=== PATIENT | male | born 1945 | race Caucasian/White ===

== ENCOUNTER 2018-02-05 19:42 | Inpatient (IN) | payer OTHER, MEDICARE ==
[2018-02-05] MEDS ORDERED: SODIUM CHLORIDE 0.9% 1,000 ML IV STA (19:53)
[2018-02-05 20:03] LABS: Glucose,Whole Blood 242 mg/dL (75-99)
[2018-02-05 20:14] LABS: Basophils # (A) 0.1 k/uL (0-0.2); Basophils % (A) 1 %; Eosinophils # (A) 0.2 k/uL (0-0.7); Eosinophils % (A) 3 %; HCT 40.8 % (39.0-53.0); HGB 13.9 gm/dL (13.0-17.5); Lymphocytes # (A) 1.6 k/uL (1.0-4.8); Lymphocytes % (A) 29 %; MCH 31.8 pg (25.0-35.0); MCHC 34.1 g/dL (31.0-37.0); MCV 93.3 fL (80.0-100.0); Mean Platelet Volume 7.2; Monocytes # (A) 0.4 k/uL (0-1.0); Monocytes % (A) 8 %; Neutrophils % (A) 56 %; Platelet Count 187 k/uL (150-450); RBC 4.37 m/uL (4.30-5.90); RDW 13.1 % (11.5-15.5); WBC 5.4 k/uL (3.8-10.6)
[2018-02-05 20:23] LABS: INR 1.1 (<1.2); Prothrombin Time 10.3 sec (9.0-12.0)
--- NOTE | 2018-02-05 20:29 | CT ---
EXAMINATION TYPE: CT brain wo con for TPA DATE OF EXAM: 02/05/2018 COMPARISON: 05/13/2010 HISTORY: Aphasia. Neuro deficits. CT DLP: 926.8 mGycm Automated exposure control for dose reduction was used. TECHNIQUE: CT scan of the head is performed without contrast. FINDINGS: There is no acute intracranial hemorrhage or midline shift identified. There is diffuse v entricular and sulcal prominence consistent with diffuse age-related cerebral atrophy. Punctate thala lela lacunar injury and vallejo radiata lacunar injuries are near CSF attenuated and chronic although n ot present on the prior exam of 2009. There is low-attenuation in the periventricular white matter co nsistent with chronic small vessel ischemic change. The globes are intact. Mild mucosal thickening o f the ethmoid and visualized portions of the maxillary sinuses are seen. Frontal sinuses are aplastic . Mastoid air cells are well aerated. IMPRESSION: No acute intracranial process. Old lacunar injuries of the left vallejo radiata and thala mus.
[2018-02-05 20:34] LABS: Albumin 4.5 g/dL (3.5-5.0); Calcium 9.7 mg/dL (8.4-10.2); Potassium 4.5 mmol/L (3.5-5.1); Total Bilirubin 0.5 mg/dL (0.2-1.3); Total Protein 7.4 g/dL (6.3-8.2)
[2018-02-05 20:35] LABS: Creatine Kinase 55 U/L (55-170)
[2018-02-05 20:46] LABS: Creatine Kinase MB 0.8 ng/mL (0.0-2.4); Troponin I <0.012 ng/mL (0.000-0.034)
--- NOTE | 2018-02-05 20:55 | CT ---
EXAMINATION TYPE: CT angio head neck DATE OF EXAM: 02/05/2018 HISTORY: Aphasia. Neuro deficits. COMPARISON: NONE CT DLP: 324.6 mGycm. Automated Exposure Control for Dose Reduction was Utilized. TECHNIQUE: CTA scan of the neck is performed with IV Contrast, patient injected with 65ml mL of Isov ue 370, axial images are obtained, coronal and sagittal reformatted images are reviewed. Three-D daryl nstructed images are created on an independent workstation and reviewed. FINDINGS: CAROTID/VASCULAR STRUCTURES: The right vertebral artery is extremely diminutive and appears to be foc ally occluded at the level of C1 and within the foramen magnum with reconstitution. Left vertebral ar toni is unremarkable. There is moderate atherosclerosis of the extracranial and intracranial portions of the internal carotid arteries most pronounced within the cavernous and supraclinoid portions of t he internal carotid arteries and carotid bulbs. The right posterior communicating artery may be conge nitally absent or extremely diminutive and is not definitively seen. Remainder of the galena of Willi s is unremarkable with no focal occlusion. No aneurysmal outpouching is identified. Extensive calcific and noncalcific atheromatous plaquing are seen of the aortic arch although no foca l occlusion is seen along the ostia of the great vessels. At the bilateral carotid bulbs there is juan roximately 50% stenosis on the left and less than 50% stenosis on the right with approximately 60% st enosis in a short segment spanning over approximately 1 cm of the tortuous internal carotid artery ju st after the bifurcation. OTHER: Mild centrilobular emphysematous changes are seen at the lung apices. Moderate multilevel dege nerative changes of the spine are noted. Visualized portions of the brain are discussed on the CT bra in dictation of the same date. Airway is maintained and thyroid gland is unremarkable. No cervical ad enopathy is seen. IMPRESSION: 1. 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 This could be from diminutive thready flow or retrograde fl ow from the basilar artery. The cervical portion of the right vertebral artery is extremely diminutiv e. 2. Right posterior to indicating artery is not definitively seen and could be congenitally hypoplasti c or absent. Otherwise the galena of Gray is intact with no intracranial vascular stenosis. 3. Multifocal atherosclerosis with stenosis of approximately 50% in a short segment of the left carot id bulb and 60% in a short segment of the takeoff of the right internal carotid artery as well as mod erate calcific atheromatous plaquing of the cavernous and supraclinoid portions of the internal carot id arteries.
--- NOTE | 2018-02-05 22:03 | ED ---
General Adult HPI - General Chief complaint: Neuro Symptoms/Deficit Stated complaint: Poss Stroke Time Seen by Provider: 02/05/18 19:52 Source: patient, family, RN notes reviewed, old records reviewed Mode of arrival: wheelchair Limitations: no limitations - History of Present Illness Initial comments: This is a 72-year-old male the ER for evaluation. Patient comes in for evaluation regarding neurological complaint. Unknown onset of symptoms. Patient has history of high blood pressure high cholesterol diabetes. No prior history of CVA or heart disease. Patient states the difficulty expressing his thoughts some weakness and some altered mental status as well as some forgetfulness. Per family symptoms are mildly improved at this time but he still does not sit not himself - Related Data Home Medications Medication Instructions Recorded Confirmed metFORMIN HCL [Glucophage] 1,000 mg PO QAM 03/10/14 02/05/18 Atorvastatin Calcium [Lipitor] 80 mg PO HS 03/13/14 03/13/14 amLODIPine BESYLATE [Norvasc] 10 mg PO DAILY 03/13/14 02/05/18 metFORMIN HCL [Glucophage] 500 mg PO HS 02/05/18 02/05/18 Allergies Allergy/AdvReac Type Severity Reaction Status Date / Time No Known Allergies Allergy Verified 02/05/18 20:32 Review of Systems ROS Statement: Those systems with pertinent positive or pertinent negative responses have been documented in the HPI. ROS Other: All systems not noted in ROS Statement are negative. Past Medical History Past Medical History: Diabetes Mellitus, Hyperlipidemia, Hypertension History of Any Multi-Drug Resistant Organisms: None Reported Past Surgical History: Hernia Repair Additional Past Surgical History / Comment(s): Right knee surgery CUT OUT CARTILAGE, hernia repair Past Anesthesia/Blood Transfusion Reactions: No Reported Reaction Past Psychological History: No Psychological Hx Reported Smoking Status: Never smoker Past Alcohol Use History: Occasional Past Drug Use History: None Reported - Past Family History Father Additional Family Medical History / Comment(s): AT AGE 84-CANCER OF LARNYX (SMOKER), CARDIAC PROBLEMS Mother Family Medical History: Diabetes Mellitus Additional Family Medical History / Comment(s): AT AGE 83- HAD A PITUITARY TUMOR REMOVED HAD SON CRISIS General Exam - General Exam Comments Initial Comments: NIH of 2 Limitations: no limitations General appearance: alert, in no apparent distress Head exam: Present: atraumatic, normocephalic, normal inspection Eye exam: Present: normal appearance, PERRL, EOMI. Absent: scleral icterus, conjunctival injection, periorbital swelling ENT exam: Present: normal exam, mucous membranes moist Neck exam: Present: normal inspection. Absent: tenderness, meningismus, lymphadenopathy Respiratory exam: Present: normal lung sounds bilaterally. Absent: respiratory distress, wheezes, rales, rhonchi, stridor Cardiovascular Exam: Present: regular rate, normal rhythm, normal heart sounds. Absent: systolic murmur, diastolic murmur, rubs, gallop, clicks GI/Abdominal exam: Present: soft, normal bowel sounds. Absent: distended, tenderness, guarding, rebound, rigid Extremities exam: Present: normal inspection, full ROM, normal capillary refill. Absent: tenderness, pedal edema, joint swelling, calf tenderness Back exam: Present: normal inspection Neurological exam: Present: alert, oriented X3, CN II-XII intact Psychiatric exam: Present: normal affect, normal mood Skin exam: Present: warm, dry, intact, normal color. 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 Patient will be admitted for neurological evaluation - Lab Data Result diagrams: 02/05/18 19:54 02/05/18 19:54 Lab Results 02/05/18 02/05/18 02/05/18 Range/Units 19:54 19:54 19:54 WBC 5.4 (3.8-10.6) k/uL RBC 4.37 (4.30-5.90) m/uL Hgb 13.9 (13.0-17.5) gm/dL Hct 40.8 (39.0-53.0) % MCV 93.3 (80.0-100.0) fL MCH 31.8 (25.0-35.0) pg MCHC 34.1 (31.0-37.0) g/dL RDW 13.1 (11.5-15.5) % Plt Count 187 (150-450) k/uL Neutrophils % 56 % Lymphocytes % 29 % Monocytes % 8 % Eosinophils % 3 % Basophils % 1 % Neutrophils # 3.0 (1.3-7.7) k/uL Lymphocytes # 1.6 (1.0-4.8) k/uL Monocytes # 0.4 (0-1.0) k/uL Eosinophils # 0.2 (0-0.7) k/uL Basophils # 0.1 (0-0.2) k/uL PT (9.0-12.0) sec INR (<1.2) APTT (22.0-30.0) sec Sodium 138 (137-145) mmol/L Potassium 4.5 (3.5-5.1) mmol/L Chloride 102 (98-107) mmol/L Carbon Dioxide 23 (22-30) mmol/L Anion Gap 13 mmol/L BUN 26 H (9-20) mg/dL Creatinine 1.30 H (0.66-1.25) mg/dL Est GFR (CKD-EPI)AfAm 62 (>60 ml/min/1.73 sqM) Est GFR (CKD-EPI)NonAf 54 (>60 ml/min/1.73 sqM) Glucose 250 H (74-99) mg/dL POC Glucose (mg/dL) (75-99) mg/dL POC Glu Jigger Operator ID Calcium 9.7 (8.4-10.2) mg/dL Total Bilirubin 0.5 (0.2-1.3) mg/dL AST 19 (17-59) U/L ALT 27 (21-72) U/L Alkaline Phosphatase 57 (38-126) U/L Total Creatine Kinase 55 (55-170) U/L CK-MB (CK-2) 0.8 (0.0-2.4) ng/mL CK-MB (CK-2) Rel Index 1.5 Troponin I <0.012 (0.000-0.034) ng/mL Total Protein 7.4 (6.3-8.2) g/dL Albumin 4.5 (3.5-5.0) g/dL 02/05/18 02/05/18 Range/Units 19:54 20:02 WBC (3.8-10.6) k/uL RBC (4.30-5.90) m/uL Hgb (13.0-17.5) gm/dL Hct (39.0-53.0) % MCV (80.0-100.0) fL MCH (25.0-35.0) pg MCHC (31.0-37.0) g/dL RDW (11.5-15.5) % Plt Count (150-450) k/uL Neutrophils % % Lymphocytes % % Monocytes % % Eosinophils % % Basophils % % Neutrophils # (1.3-7.7) k/uL Lymphocytes # (1.0-4.8) k/uL Monocytes # (0-1.0) k/uL Eosinophils # (0-0.7) k/uL Basophils # (0-0.2) k/uL PT 10.3 (9.0-12.0) sec INR 1.1 (<1.2) APTT 22.0 (22.0-30.0) sec Sodium (137-145) mmol/L Potassium (3.5-5.1) mmol/L Chloride (98-107) mmol/L Carbon Dioxide (22-30) mmol/L Anion Gap mmol/L BUN (9-20) mg/dL Creatinine (0.66-1.25) mg/dL Est GFR (CKD-EPI)AfAm (>60 ml/min/1.73 sqM) Est GFR (CKD-EPI)NonAf (>60 ml/min/1.73 sqM) Glucose (74-99) mg/dL POC Glucose (mg/dL) 242 H (75-99) mg/dL POC Glu Jigger Operator ID Graciela Maddox Calcium (8.4-10.2) mg/dL Total Bilirubin (0.2-1.3) mg/dL AST (17-59) U/L ALT (21-72) U/L Alkaline Phosphatase (38-126) U/L Total Creatine Kinase (55-170) U/L CK-MB (CK-2) (0.0-2.4) ng/mL CK-MB (CK-2) Rel Index Troponin I (0.000-0.034) ng/mL Total Protein (6.3-8.2) g/dL Albumin (3.5-5.0) g/dL - Radiology Data Radiology results: report reviewed (CT brain CT head and neck negative for acute disease), image reviewed Disposition Clinical Impression: Cerebrovascular accident Disposition: ADMITTED IP TO THIS [facility] Condition: Fair Is patient prescribed a controlled substance at d/c from ED?: No Referrals: Orlando Parish DO [Primary Care Provider] - 1-2 days
[2018-02-05] MEDS ORDERED: ASPIRIN 325 MG TAB PO STA (22:11)
[2018-02-05 23:13] VITALS: BMI 28.5
[2018-02-05] MEDS: SODIUM CHLORIDE 0.9% 1,000 ML IV SCH (23:21)
[2018-02-06 05:58] LABS: Glucose,Whole Blood 138 mg/dL (75-99)
[2018-02-06 06:21] VITALS: TEMP 97.8
[2018-02-06] MEDS ORDERED: INSULIN ASPART 100 UNIT/ML 1 ML 10 ML VIAL SQ SCH (07:30)
[2018-02-06 09:32] LABS: Cholesterol 232 mg/dL (<200); HDL Cholesterol 45 mg/dL (40-60); LDL Cholesterol,Calculated 146 mg/dL (0-99); Triglycerides 203 mg/dL (<150)
--- NOTE | 2018-02-06 11:05 | ECHOF ---
Referral Reason:Thrombus MEASUREMENTS -------- HEIGHT: 180.3 cm WEIGHT: 95.3 kg BP: 128/70 RVIDd: 2.9 cm (< 3.3) IVSd: 1.3 cm (0.6 - 1.1) LVIDd: 4.6 cm (3.9 - 5.3) LVPWd: 1.3 cm (0.6 - 1.1) IVSs: 2.0 cm LVIDs: 3.2 cm LVPWs: 1.7 cm LAESV Index (A-L): 33.35 ml/m Ao Diam: 2.7 cm (2.0 - 3.7) AV Cusp: 1.1 cm (1.5 - 2.6) LA Diam: 4.6 cm (2.7 - 3.8) MV EXCURSION: 14.577 mm (> 18.000) MV EF SLOPE: 55 mm/s (70 - 150) EPSS: 0.6 cm MV E Vipul: 1.01 m/s MV DecT: 214 ms MV A Vipul: 1.07 m/s MV E/A Ratio: 0.94 AV maxP.73 mmHg AV meanP.28 mmHg AR PHT: 487 ms RAP: 5.00 mmHg RVSP: 30.76 mmHg FINDINGS -------- Sinus rhythm. This was a technically good study. The left ventricular size is normal. There is mild concentric left ventricular hypertrophy. Overa ll left ventricular systolic function is normal with, an EF between 55 - 60 %. The right ventricle is normal in size and function. LA is midly dilated 29-33ml/m2. The right atrium is normal in size. Aortic valve is trileaflet and is mildly thickened. There is mild aortic regurgitation. There is mild aortic stenosis present. Peak/mean gradient across the Aortic Valve is 19.73mmHg / 10.28mmHg. The mitral valve leaflets are mildly thickened. Mild mitral regurgitation is present. Mild tricuspid regurgitation present. The right ventricular systolic pressure, as measured by Doppl er, is 30.76mmHg. Pulmonic valve appears structurally normal. The aortic root size is normal. Normal inferior vena cava with normal inspiratory collapse consistent with estimated right atrial pre ssure of 5 mmHg. The pericardium is normal. CONCLUSIONS -------- 1. Sinus rhythm. 2. This was a technically good study. 3. The left ventricular size is normal. 4. There is mild concentric left ventricular hypertrophy. 5. Overall left ventricular systolic function is normal with, an EF between 55 - 60 %. 6. The right ventricle is normal in size and function. 7. LA is midly dilated 29-33ml/m2. 8. The right atrium is normal in size. 9. Aortic valve is trileaflet and is mildly thickened. 10. There is mild aortic regurgitation. 11. There is mild aortic stenosis present. 12. Peak/mean gradient across the Aortic Valve is 19.73mmHg / 10.28mmHg. 13. The mitral valve leaflets are mildly thickened. 14. Mild mitral regurgitation is present. 15. Mild tricuspid regurgitation present. 16. The right ventricular systolic pressure, as measured by Doppler, is 30.76mmHg. 17. Pulmonic valve appears structurally normal. 18. The aortic root size is normal. 19. Normal inferior vena cava with normal inspiratory collapse consistent with estimated right atrial pressure of 5 mmHg. 20. The pericardium is normal. CREPE MACHINE OPERATOR: Ina Patton RDCS
[2018-02-06 11:55] LABS: Glucose,Whole Blood 210 mg/dL (75-99)
[2018-02-06] MEDS: SODIUM CHLORIDE 0.9% 1,000 ML IV SCH (12:11)
[2018-02-06 12:46] VITALS: RESP 16
[2018-02-06 12:47] VITALS: BP 161/83; PULSE 59
--- NOTE | 2018-02-06 14:20 | P.HPIM ---
History of Present Illness 72-year-old pleasant gentleman came in with nonspecific symptoms of brief episode of confusion, feeling high like he uses some street drugs. Denied any focal weakness but does have tingling and numbness in bilateral upper and lower extremities. Patient was admitted for TIA or stroke evaluation echocardiogram essentially within normal limits carotid Doppler showed some atherosclerotic plaques not significant enough for any surgical intervention. Patient does have elevated LDL, patient is noncompliant with his statin. Patient doesn't use any antiplatelet therapy. CAT scan of the head did show some old lacunar strokes. No acute abnormality. Patient's diet is not consistent with TIA or a stroke. Patient is alert oriented 3. Patient doesn't have any signs or symptoms of sepsis at this point of time left lites are within normal limits. Patient doesn't smoke does drink alcohol occasionally. Counseling regarding complex with medications was provided will be given prescription for atorvastatin will be started and aspirin will be discharged to follow up with his primary care physician and neurology as an outpatient. Review of Systems REVIEW OF SYSTEMS: CONSTITUTIONAL: No fever, no malaise, no fatigue. HEENT: No recent visual problems or hearing problems. Denied any sore throat. CARDIOVASCULAR: No chest pain, orthopnea, PND, no palpitations, no syncope. PULMONARY: No shortness of breath, no cough, no hemoptysis. GASTROINTESTINAL: No diarrhea, no nausea, no vomiting, no abdominal pain. Normoactive bowel sounds. NEUROLOGICAL: No headaches, no weakness, HEMATOLOGICAL: Denies any bleeding or petechiae. GENITOURINARY: Denies any burning micturition, frequency, or urgency. MUSCULOSKELETAL/RHEUMATOLOGICAL: Denies any joint pain, swelling, or any muscle pain. ENDOCRINE: Denies any polyuria or polydipsia. The rest of the 14-point review of systems is negative. Past Medical History Past Medical History: Diabetes Mellitus, Hyperlipidemia, Hypertension History of Any Multi-Drug Resistant Organisms: None Reported Past Surgical History: Hernia Repair Additional Past Surgical History / Comment(s): Right knee surgery CUT OUT CARTILAGE, hernia repair Past Anesthesia/Blood Transfusion Reactions: No Reported Reaction Past Psychological History: No Psychological Hx Reported Smoking Status: Never smoker Past Alcohol Use History: Occasional Additional Past Alcohol Use History / Comment(s): QUIT 20 YEARS AGO WAS DRINKING 1 CASE OF BEER PER DAY. Patient states he is now drinking an occasional basis only. He states he has never been a smoker. 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 He is currently living at home with his . He did recently travel to [place] 1 month ago. They have chickens dogs and cats at home. He was in the [employer] for 6 years in 1965 and was stationed in [place]. Past Drug Use History: None Reported - Past Family History Father Additional Family Medical History / Comment(s): AT AGE 84-CANCER OF LARNYX (SMOKER), CARDIAC PROBLEMS Mother Family Medical History: Diabetes Mellitus Additional Family Medical History / Comment(s): AT AGE 83- HAD A PITUITARY TUMOR REMOVED HAD SON CRISIS Medications and Allergies Home Medications Medication Instructions Recorded Confirmed Type metFORMIN HCL [Glucophage] 1,000 mg PO QAM 03/10/14 02/05/18 History amLODIPine BESYLATE [Norvasc] 10 mg PO DAILY 03/13/14 02/05/18 History metFORMIN HCL [Glucophage] 500 mg PO HS 02/05/18 02/05/18 History Aspirin 81 mg PO DAILY #30 chewable 02/06/18 Rx Atorvastatin [Lipitor] 80 mg PO HS #30 tab 02/06/18 Rx Allergies Allergy/AdvReac Type Severity Reaction Status Date / Time No Known Allergies Allergy Verified 02/05/18 20:32 Physical Exam Vitals: Vital Signs Temp Pulse Pulse Resp BP BP Pulse Ox 02/06/18 12:00 59 L 16 161/83 97 02/06/18 08:00 69 16 160/75 95 02/06/18 04:00 97.8 F 68 16 128/70 99 02/05/18 23:31 78 18 02/05/18 22:55 97.4 F L 82 18 153/74 97 02/05/18 22:48 98.1 F 78 16 154/72 99 02/05/18 21:55 84 18 154/74 98 02/05/18 21:25 87 18 158/80 97 02/05/18 20:55 94 18 157/77 94 L 02/05/18 20:40 95 18 179/89 94 L 02/05/18 20:25 96 18 178/103 98 02/05/18 20:10 99 18 183/100 98 02/05/18 19:46 98.3 F 100 18 181/94 97 Intake and Output 02/05/18 02/06/18 02/06/18 22:59 06:59 14:59 Intake Total 960 240 Balance 960 240 Intake: Oral 960 240 Other: Voiding Method Toilet Urinal # Voids 2 Weight 95.254 kg 94.03 kg PHYSICAL EXAMINATION: GENERAL: The patient is alert and oriented x3, not in any acute distress. Well developed, well nourished. HEENT: Pupils are round and equally reacting to light. EOMI. No scleral icterus. No conjunctival pallor. Normocephalic, atraumatic. No pharyngeal erythema. No thyromegaly. CARDIOVASCULAR: S1 and S2 present. No murmurs, rubs, or gallops. PULMONARY: Chest is clear to auscultation, no wheezing or crackles. ABDOMEN: Soft, nontender, nondistended, normoactive bowel sounds. No palpable organomegaly. MUSCULOSKELETAL: No joint swelling or deformity. EXTREMITIES: No cyanosis, clubbing, or pedal edema. NEUROLOGICAL: Gross neurological examination did not reveal any focal deficits. SKIN: No rashes. Results CBC & Chem 7: 02/05/18 19:54 02/05/18 19:54 Labs: Abnormal Lab Results - Last 24 Hours (Table) 02/05/18 02/05/18 02/06/18 Range/Units 19:54 20:02 05:53 BUN 26 H (9-20) mg/dL Creatinine 1.30 H (0.66-1.25) mg/dL Glucose 250 H (74-99) mg/dL POC Glucose (mg/dL) 242 H 138 H (75-99) mg/dL Triglycerides (<150) mg/dL Cholesterol (<200) mg/dL LDL Cholesterol, Calc (0-99) mg/dL 02/06/18 02/06/18 Range/Units 08:36 11:53 BUN (9-20) mg/dL Creatinine (0.66-1.25) mg/dL Glucose (74-99) mg/dL POC Glucose (mg/dL) 210 H (75-99) mg/dL Triglycerides 203 H (<150) mg/dL Cholesterol 232 H (<200) mg/dL LDL Cholesterol, Calc 146 H (0-99) mg/dL Thrombosis Risk Factor Assmnt - Choose All That Apply Each Risk Factor Represents 2 Points: Age 61-74 years Thrombosis Risk Factor Assessment Total Risk Factor Score: 2 Thrombosis Risk Factor Assessment Level: Low Risk Assessment and Plan Plan: -Ruled out TIA/stroke: Patient does have some old small vessel ischemic changes on the CAT scan. -Hyperlipidemia -Hypertension -Diabetes mellitus. Counseling regarding compliance was provided. Patient will be discharged today. Workup for TIA and stroke as mentioned above echocardiogram essentially within normal limits.
--- NOTE | 2018-02-06 14:21 | P.DS ---
Providers Date of admission: 02/05/18 22:12 Attending physician: Angelia Harry Consults: 02/05/18 22:12 Consult Physician Routine Consulting Provider: Vinicius Vallejo Consult Reason/Comments: cva Do you want consulting provider notified?: Yes Primary care physician: Orlando Parish [facility] Course: Please refer to my HPI Patient Condition at Discharge: Stable Plan - Discharge Summary Discharge Rx Participant: No New Discharge Prescriptions: New Aspirin 81 mg PO DAILY #30 chewable Atorvastatin [Lipitor] 80 mg PO HS #30 tab Continue metFORMIN HCL [Glucophage] 1,000 mg PO QAM amLODIPine BESYLATE [Norvasc] 10 mg PO DAILY metFORMIN HCL [Glucophage] 500 mg PO HS Discontinued Atorvastatin Calcium [Lipitor] 80 mg PO HS Discharge Medication List metFORMIN HCL [Glucophage] 1,000 mg PO QAM 03/10/14 [History] amLODIPine BESYLATE [Norvasc] 10 mg PO DAILY 03/13/14 [History] metFORMIN HCL [Glucophage] 500 mg PO HS 02/05/18 [History] Aspirin 81 mg PO DAILY #30 chewable 02/06/18 [Rx] Atorvastatin [Lipitor] 80 mg PO HS #30 tab 02/06/18 [Rx] Follow up Appointment(s)/Referral(s): Priya Tate MD [STAFF PHYSICIAN] - 03/14/18 11:00 am Orlando Parish DO [Primary Care Provider] - 3 Days ([facility] [phone] Offices are going to call with an appointment date and time. ) Patient Instructions/Handouts: Cholesterol and Your Health (GEN), Stroke (DC) Discharge Disposition: HOME SELF-CARE
[2018-02-06] MEDS ORDERED: ASPIRIN 325 MG TAB PO SCH (22:12)
== END 2018-02-06 13:25 | disposition home or self-care (01) | DRG 948 ==
LOC: EC 19:42 → 6SEL 22:12
PROVIDERS: ADMIT Hospitalist; ATTEND Hospitalist
DX: R41.82 Altered mental status, unspecified (principal); R53.1 Weakness; R20.0 Anesthesia of skin; R20.2 Paresthesia of skin; E11.22 Type 2 diabetes mellitus with diabetic chronic kidney disease; E78.00 Pure hypercholesterolemia, unspecified; E78.5 Hyperlipidemia, unspecified; I12.9 Hypertensive chronic kidney disease with stage 1 through stage 4 chronic kidney disease, or unspecified chronic kidney disease; N18.3 Chronic kidney disease, stage 3 (moderate); Z79.82 Long term (current) use of aspirin; Z79.84 Long term (current) use of oral hypoglycemic drugs; Z79.899 Other long term (current) drug therapy; Z86.73 Personal history of transient ischemic attack (TIA), and cerebral infarction without residual deficits; Z91.19 Patient's noncompliance with other medical treatment and regimen; Z83.3 Family history of diabetes mellitus; Z80.8 Family history of malignant neoplasm of other organs or systems; Z82.49 Family history of ischemic heart disease and other diseases of the circulatory system
CPT/HCPCS: 36415; 70450; 70496; 70498; 80053; 80061; 82550; 82553; 84484; 85025; 85610; 85730; 93005; 93306; 96360; 96361; 99285

== ENCOUNTER 2018-05-20 14:09 | Emergency (ER) | payer MEDICARE, OTHER ==
[2018-05-20 14:18] VITALS: RESP 18; TEMP 98
[2018-05-20] MEDS ORDERED: DIPH,PERTUS(ACELL)TETVAC-LF 0.5 ML VIAL IM ONE (14:52)
[2018-05-20] MEDS ORDERED: LIDOCAINE 1% INJ 10MG/ML (20 ML MDV) SQ STA (14:54)
[2018-05-20 16:49] VITALS: PULSE 79
--- NOTE | 2018-05-20 16:50 | ED ---
General Adult HPI - General Source: patient, RN notes reviewed, old records reviewed Mode of arrival: ambulatory Limitations: no limitations <Martin Leroy - Last Filed: 05/20/18 17:02> <Elias Person - Last Filed: 05/20/18 17:12> - General Chief complaint: Wound/Laceration Stated complaint: lac on rt hand - History of Present Illness Initial comments: 72-year-old male patient passed no history of diabetes mellitus to ED with 2 cm laceration to right hand located in web between the thumb and first digit. Patient states that he sustained this laceration when he was using a piece of steel for work that had a sharp edge. Patient states he did not notice any foreign bodies in his laceration, cleaned out with soap and water shortly after cut. Patient does not know his last tetanus was. Patient denies any other injury, complaint. Systemic: Pt denies fatigue, myalgia, fever/chills, rash. Pt denies weakness, night sweats, weight loss. Neuro: Pt denies headache, visual disturbances, syncope or pre-syncope. HEENT: Pt denies ocular discharge or irritation, otalgia, rhinorrhea, pharyngitis or notable lymphadenopathy. Cardiopulmonary: Pt denies chest pain, SOB, heart palpitations, dyspnea on exertion. Abdominal/GI: Pt denies abdominal pain, n/v/d. : Pt denies dysuria, burning w/ urination, frequency/urgency. Denies new onset urinary or bowel incontinence. MSK: Pt denies myalgia, loss of strength or function in extremities. (Martin Leroy) - Related Data Home Medications Medication Instructions Recorded Confirmed metFORMIN HCL [Glucophage] 1,000 mg PO QAM 03/10/14 02/05/18 amLODIPine BESYLATE [Norvasc] 10 mg PO DAILY 03/13/14 02/05/18 metFORMIN HCL [Glucophage] 500 mg PO HS 02/05/18 02/05/18 Previous Rx's Medication Instructions Recorded Aspirin 81 mg PO DAILY #30 chewable 02/06/18 Atorvastatin [Lipitor] 80 mg PO HS #30 tab 02/06/18 Cephalexin [Keflex] 500 mg PO Q12HR 10 Days #20 cap 05/20/18 Allergies Allergy/AdvReac Type Severity Reaction Status Date / Time No Known Allergies Allergy Verified 05/20/18 14:18 Review of Systems ROS Other: All systems not noted in ROS Statement are negative. <Martin Leroy - Last Filed: 05/20/18 17:02> ROS Other: All systems not noted in ROS Statement are negative. <Elias Person - Last Filed: 05/20/18 17:12> ROS Statement: Those systems with pertinent positive or pertinent negative responses have been documented in the HPI. Past Medical History Past Medical History: Diabetes Mellitus, Hyperlipidemia, Hypertension History of Any Multi-Drug Resistant Organisms: None Reported Past Surgical History: Hernia Repair Additional Past Surgical History / Comment(s): Right knee surgery CUT OUT CARTILAGE, hernia repair Past Anesthesia/Blood Transfusion Reactions: No Reported Reaction Past Psychological History: No Psychological Hx Reported Smoking Status: Never smoker Past Alcohol Use History: Occasional Past Drug Use History: None Reported - Past Family History Father Additional Family Medical History / Comment(s): AT AGE 84-CANCER OF LARNYX (SMOKER), CARDIAC PROBLEMS Mother Family Medical History: Diabetes Mellitus Additional Family Medical History / Comment(s): AT AGE 83- HAD A PITUITARY TUMOR REMOVED HAD SON CRISIS <Martin Leroy - Last Filed: 05/20/18 17:02> General Exam Limitations: no limitations <Martin Leroy - Last Filed: 05/20/18 17:02> <Elias Person - Last Filed: 05/20/18 17:12> - General Exam Comments Initial Comments: Constitutional: NAD, AOX3, Pt has pleasant affect. HEENT: NC/AT, trachea midline, neck supple, no lymphadenopathy. Posterior pharynx non erythematous, without exudates. External ears appear normal, without discharge. Mucous membranes moist. Eyes PERRLA, EOM intact. There is no scleral icterus. No pallor noted. Cardiopulmonary: RRR, no murmurs, rubs or gallops, no JVD noted. Lungs CTAB in anterior and posterior martins. No peripheral edema. Abdominal exam: Abdomen soft and non-distended. Abdomen non-tender to palpation in all 4 quadrants. Bowel sounds active in LLQ. No hepatosplenomegaly. Neuro: CN II-XII grossly intact. MSK: Approximately 2 cm laceration R hand in web of finger between thumb and first digit. Patient neurovascularly intact. Radial pulse +2 bilaterally. Capillary refill less than 2 seconds in all nail beds bilaterally. Patient has full active range of motion of the right hand. No other pathologic findings. (Martin Leroy) Course <Martin Leroy - Last Filed: 05/20/18 17:02> <Elias Person - Last Filed: 05/20/18 17:12> Vital Signs 05/20/18 05/20/18 05/20/18 14:15 16:48 16:52 Temperature 98 F Pulse Rate 92 79 Respiratory 18 18 Rate Blood Pressure 132/80 170/90 138/76 O2 Sat by Pulse 96 99 Oximetry - Reevaluation(s) Reevaluation #1: 05/20/18 17:12 PA supervision: I proceeded [id number] evaluation the patient and did assess the injury. He had a right hand webspace injury to his summoned Year. He did this when he was using a pipe a neighbor caught his hand. 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 (Elias Person) Procedures - Laceration Laceration #1 Consent Obtained: verbal consent Time Out Performed: Yes Indication: laceration Site: hand Description: linear Depth: simple, single layer Anesthetic Used: lidocaine 1% Anesthesia Technique: local infiltration Amount (mls): 3 Pre-repair: wound explored, irrigated extensively (500 CC normal saline ) Type of Sutures: other (ethylon) Size of Sutures: 5-0 Number of Sutures: 3 Technique: simple, interrupted Patient Tolerated Procedure: well <Martin Leroy - Last Filed: 05/20/18 17:02> Medical Decision Making <Martin Leroy - Last Filed: 05/20/18 17:02> <Elias Person - Last Filed: 05/20/18 17:12> - Medical Decision Making 72-year-old male presents with history of diabetes since laceration to right hand. Patient had no other complaints. Patient neurovascularly intact, full active range of motion right hand. Patient had tDap updated today. Laceration was explored, no foreign bodies found. The laceration was copiously irrigated with 500 mL. Laceration was closed primarily with 3, 50 sutures. Patient to be discharged with by mouth Keflex. Patient to follow up with primary care physician in one to 2 days. Patient to have sutures removed in 10 days by PCP. Patient to monitor for signs symptoms of infection including redness around the suture site, discharge, streaking, fevers or chills. Patient to return to ED if any of the symptoms, or any other new symptoms develop. Case discussed with Dr. Person. (Martin Leroy) Disposition Is patient prescribed a controlled substance at d/c from ED?: No Time of Disposition: 16:54 <Martin Leroy - Last Filed: 05/20/18 17:02> <Elias Person - Last Filed: 05/20/18 17:12> Clinical Impression: Laceration Disposition: HOME SELF-CARE Condition: Good Instructions: Laceration (ED) Additional Instructions: Patient to adhere to previously discussed treatment plan and will take medication(s) as directed. Patient to follow up with PCP in 1-2 days. Patient to return to ED if symptoms do not improve. Prescriptions: Cephalexin [Keflex] 500 mg PO Q12HR 10 Days #20 cap Referrals: [facility],Clinic [Primary Care Provider] - 1-2 days
[2018-05-20 16:53] VITALS: BP 138/76
== END 2018-05-20 17:02 | disposition home or self-care (01) ==
LOC: EC 14:09
DX: S61.411A Laceration without foreign body of right hand, initial encounter (principal); E11.9 Type 2 diabetes mellitus without complications; I10 Essential (primary) hypertension; Z79.84 Long term (current) use of oral hypoglycemic drugs; Z79.899 Other long term (current) drug therapy; Z23 Encounter for immunization; W26.8XXA Contact with other sharp object(s), not elsewhere classified, initial encounter; Y93.89 Activity, other specified
CPT/HCPCS: 90715; 99283; 12001; 90471; J2001

== ENCOUNTER 2018-11-15 14:35 | Emergency (ER) | payer OTHER ==
[2018-11-15] MEDS ORDERED: DIPH,PERTUS(ACELL)TETVAC-LF 0.5 ML VIAL IM ONE (16:08)
--- NOTE | 2018-11-15 16:26 | ED ---
General Adult HPI - General Source: patient Mode of arrival: wheelchair <Edison Rivas - Last Filed: 11/15/18 16:02> <Elias Person - Last Filed: 11/15/18 16:28> - General Chief complaint: Extremity Injury, Lower Stated complaint: rt foot/ankle injury Time Seen by Provider: 11/15/18 15:22 - History of Present Illness Initial comments: Patient 73-year-old male presents to emergency department with pain to the right foot. Patient states about a week ago he was carrying a piece of metal when he accidentally scraped his left lower leg down to the calcaneus. Patient states he developed swelling and redness in the area without limited range of motion. Patient states that he continued doing his daily activities and putting Neospori n on his foot. Patient states over the course of the last 3 days the swelling has decreased and the pain is nonexistent. Patient states that the abrasion is healing well. Patient also states that the ecchymosis is disappearing. She states the pain is 0 at rest and is only exacerbated with plantar flexion. Patient denies taking any medication for pain. Patient denies any numbness or tingling. (Edison Rivas) - Related Data Home Medications Medication Instructions Recorded Confirmed metFORMIN HCL [Glucophage] 1,000 mg PO QAM 03/10/14 02/05/18 amLODIPine BESYLATE [Norvasc] 10 mg PO DAILY 03/13/14 02/05/18 metFORMIN HCL [Glucophage] 500 mg PO HS 02/05/18 02/05/18 Previous Rx's Medication Instructions Recorded Aspirin 81 mg PO DAILY #30 chewable 02/06/18 Atorvastatin [Lipitor] 80 mg PO HS #30 tab 02/06/18 Cephalexin [Keflex] 500 mg PO Q12HR 10 Days #20 cap 05/20/18 Ibuprofen [Motrin] 600 mg PO Q8HR PRN #30 tab 11/15/18 Allergies Allergy/AdvReac Type Severity Reaction Status Date / Time No Known Allergies Allergy Verified 11/15/18 14:50 Review of Systems ROS Other: All systems not noted in ROS Statement are negative. <Edison Rivas - Last Filed: 11/15/18 16:02> ROS Other: All systems not noted in ROS Statement are negative. <Elias Person - Last Filed: 11/15/18 16:28> ROS Statement: Those systems with pertinent positive or pertinent negative responses have been documented in the HPI. Past Medical History Past Medical History: Diabetes Mellitus, Hyperlipidemia, Hypertension History of Any Multi-Drug Resistant Organisms: None Reported Past Surgical History: Hernia Repair Additional Past Surgical History / Comment(s): Right knee surgery CUT OUT CARTILAGE, hernia repair Past Anesthesia/Blood Transfusion Reactions: No Reported Reaction Past Psychological History: No Psychological Hx Reported Smoking Status: Never smoker Past Alcohol Use History: Occasional Past Drug Use History: None Reported - Past Family History Father Additional Family Medical History / Comment(s): AT AGE 84-CANCER OF LARNYX (SMOKER), CARDIAC PROBLEMS Mother Family Medical History: Diabetes Mellitus Additional Family Medical History / Comment(s): AT AGE 83- HAD A PITUITARY TUMOR REMOVED HAD SON CRISIS <Edison Rivas - Last Filed: 11/15/18 16:02> General Exam Limitations: no limitations General appearance: alert, in no apparent distress Head exam: Present: atraumatic, normocephalic, normal inspection Eye exam: Present: normal appearance, PERRL, EOMI. Absent: scleral icterus, conjunctival injection Pupils: Present: normal accommodation ENT exam: Present: normal exam Neck exam: Present: normal inspection Respiratory exam: Present: normal lung sounds bilaterally Cardiovascular Exam: Present: regular rate, normal rhythm, normal heart sounds GI/Abdominal exam: Present: soft Right Hip exam: Present: normal inspection, full ROM Upper Leg exam: Present: normal inspection, full ROM Knee exam: Present: normal inspection, full ROM Ankle exam: Present: full ROM, swelling (Mild), abrasion (2 locations along the medial aspect of ankle). Absent: tenderness, ecchymosis, erythema Foot/Toe exam: Present: normal inspection, full ROM. Absent: abrasion Neurovascular tendon exam: Present: no vascular compromise. Absent: motor deficit, sensory deficit, tendon deficit Neurological exam: Present: alert, oriented X3 Psychiatric exam: Present: normal affect, normal mood Skin exam: Present: warm, normal color <Edison Rivas - Last Filed: 11/15/18 16:02> Course <Elias Person - Last Filed: 11/15/18 16:28> Vital Signs 11/15/18 14:38 Temperature 97.5 F L Pulse Rate 73 Respiratory 16 Rate Blood Pressure 167/77 O2 Sat by Pulse 98 Oximetry - Reevaluation(s) Reevaluation #1: 11/15/18 16:27 PA supervision: I proceeded [id number] evaluation the patient he did present with complaints of ankle and foot pain after suffering an injury while on a motorcycle trip. He states 100 probably smoking down collapse of his posterior foot ankle. Been walking around today and tennis shoes. Also opened up part of the wound. He denies any pain with weightbearing distal localized area no evidence of any lymphangitis no evidence of drainage or infectious processes at this time. Conservative care will be indicated. I do agree with the assessment and plan. (Elias Person) Medical Decision Making <Edison Rivas - Last Filed: 11/15/18 16:02> - Medical Decision Making Patient 73-year-old male presents to emergency department with right foot pain. On physical examination patient does not require an x-ray exam. Patient will get a tetanus shot. Patient advised to keep cold compresses and take ibuprofen for pain. Patient advised to follow-up with primary care. Patient advised to return to emergency department if symptoms worsen. Dr. Person also examined the patient and the case was discussed with him. (Edison Rivas) Disposition Is patient prescribed a controlled substance at d/c from ED?: No Time of Disposition: 16:12 <Edison Rivas - Last Filed: 11/15/18 16:02> <Elias Person - Last Filed: 11/15/18 16:28> Clinical Impression: Ankle pain, right Disposition: HOME SELF-CARE Condition: Stable Instructions (If sedation given, give patient instructions): Ankle Sprain (ED) Additional Instructions: Please take ibuprofen as prescribed prescribed. Please keep the leg elevated and keep compress. Please return to emergency departments was worsened. Please follow-up with primary care. Prescriptions: Ibuprofen [Motrin] 600 mg PO Q8HR PRN #30 tab PRN Reason: Pain Referrals: [facility],Clinic [Primary Care Provider] - 1-2 days
[2018-11-15 16:49] VITALS: BP 159/78; PULSE 78; RESP 18; TEMP 98.1
== END 2018-11-15 16:48 | disposition home or self-care (01) ==
LOC: EC 14:35
DX: S90.511A Abrasion, right ankle, initial encounter (principal); M79.671 Pain in right foot; E11.9 Type 2 diabetes mellitus without complications; I10 Essential (primary) hypertension; Z79.84 Long term (current) use of oral hypoglycemic drugs; Z79.899 Other long term (current) drug therapy; Z23 Encounter for immunization; W22.8XXA Striking against or struck by other objects, initial encounter; Y93.89 Activity, other specified
CPT/HCPCS: 90471; 90715; 99283

== ENCOUNTER 2021-07-16 02:59 | Inpatient (IN) | payer OTHER, MEDICARE ==
--- NOTE | 2021-07-16 03:27 | ED ---
SOB HPI - General Chief Complaint: Shortness of Breath Stated Complaint: RUTHIE Time Seen by Provider: 07/16/21 03:25 Source: patient, RN notes reviewed, old records reviewed Mode of arrival: ambulatory - History of Present Illness Initial Comments: This is a 75-year-old male to the emergency room today. Patient resents today for evaluation regards to shortness of breath especially with laying down especially with exertion. Also complaining of leg to both legs swelling and lorraine n to both legs. No recent fever cough or congestion patient did test negative for coronavirus today MD Complaint: shortness of breath, cough -: hour(s) Severity: mild Severity scale (1-10): 2 Consistency: constant Improves With: rest Worsens With: exertion, movement Context: recent URI, recent illness Associated Symptoms: denies other symptoms Treatments Prior to Arrival: none - Related Data Home Medications Medication Instructions Recorded Confirmed metFORMIN HCL [Glucophage] 1,000 mg PO QAM 03/10/14 02/05/18 amLODIPine BESYLATE [Norvasc] 10 mg PO DAILY 03/13/14 02/05/18 metFORMIN HCL [Glucophage] 500 mg PO HS 02/05/18 02/05/18 Previous Rx's Medication Instructions Recorded Aspirin 81 mg PO DAILY #30 chewable 02/06/18 Atorvastatin [Lipitor] 80 mg PO HS #30 tab 02/06/18 Cephalexin [Keflex] 500 mg PO Q12HR 10 Days #20 cap 05/20/18 Ibuprofen [Motrin] 600 mg PO Q8HR PRN #30 tab 11/15/18 Allergies Allergy/AdvReac Type Severity Reaction Status Date / Time No Known Allergies Allergy Verified 07/16/21 03:02 Review of Systems ROS Statement: Those systems with pertinent positive or pertinent negative responses have been documented in the HPI. ROS Other: All systems not noted in ROS Statement are negative. Past Medical History Past Medical History: Diabetes Mellitus, Hyperlipidemia, Hypertension History of Any Multi-Drug Resistant Organisms: None Reported Past Surgical History: Hernia Repair Additional Past Surgical History / Comment(s): Right knee surgery CUT OUT CARTILAGE, hernia repair Past Anesthesia/Blood Transfusion Reactions: No Reported Reaction Past Psychological History: No Psychological Hx Reported Smoking Status: Never smoker Past Alcohol Use History: Occasional Past Drug Use History: None Reported - Past Family History Father Additional Family Medical History / Comment(s): AT AGE 84-CANCER OF LARNYX (SMOKER), CARDIAC PROBLEMS Mother Family Medical History: Diabetes Mellitus Additional Family Medical History / Comment(s): AT AGE 83- HAD A PITUITARY TUMOR REMOVED HAD SON CRISIS General Exam General appearance: alert, in no apparent distress Head exam: Present: atraumatic, normocephalic, normal inspection Eye exam: Present: normal appearance, PERRL, EOMI. Absent: scleral icterus, conjunctival injection, periorbital swelling ENT exam: Present: normal exam, mucous membranes moist Neck exam: Present: normal inspection. Absent: tenderness, meningismus, lymphadenopathy Respiratory exam: Present: normal lung sounds bilaterally. Absent: respiratory distress, wheezes, rales, rhonchi, stridor Cardiovascular Exam: Present: regular rate, normal rhythm, normal heart sounds. Absent: systolic murmur, diastolic murmur, rubs, gallop, clicks GI/Abdominal exam: Present: soft, normal bowel sounds. Absent: distended, tenderness, guarding, rebound, rigid Extremities exam: Present: normal inspection, full ROM, normal capillary refill. Absent: tenderness, pedal edema, joint swelling, calf tenderness Back exam: Present: normal inspection Neurological exam: Present: alert, oriented X3, CN II-XII intact Psychiatric exam: Present: normal affect, normal mood Skin exam: Present: warm, dry, intact, normal color. Absent: rash Course Vital Signs 07/16/21 07/16/21 03:03 05:06 Temperature 97.7 F 98.8 F Pulse Rate 97 81 Respiratory 20 12 Rate Blood Pressure 125/75 137/90 O2 Sat by Pulse 96 97 Oximetry - Reevaluation(s) Reevaluation #1: 07/16/21 06:02 Medical record is reviewed Reevaluation #2: 07/16/21 06:02 No true improvement in symptoms here in the ER Reevaluation #3: 07/16/21 06:02 Patient informed of results and questions are answered - Consultations Consultation #1: Spoke with [facility] will admit this patient Medical Decision Making - Medical Decision Making 75 male the admitted for CHF with exacerbation. Significant CHF and pulmonary edema and lower extremity edema will place on diuresis - Lab Data Result diagrams: 07/16/21 03:26 Lab Results 07/16/21 07/16/21 07/16/21 Range/Units 03:26 03:26 03:26 WBC 6.3 (3.8-10.6) k/uL RBC 4.02 L (4.30-5.90) m/uL Hgb 13.0 (13.0-17.5) gm/dL Hct 39.3 (39.0-53.0) % MCV 97.9 (80.0-100.0) fL MCH 32.4 (25.0-35.0) pg MCHC 33.1 (31.0-37.0) g/dL RDW 13.1 (11.5-15.5) % Plt Count 178 (150-450) k/uL MPV 9.1 Neutrophils % 77 % Lymphocytes % 11 % Monocytes % 8 % Eosinophils % 2 % Basophils % 1 % Neutrophils # 4.8 (1.3-7.7) k/uL Lymphocytes # 0.7 L (1.0-4.8) k/uL Monocytes # 0.5 (0-1.0) k/uL Eosinophils # 0.1 (0-0.7) k/uL Basophils # 0.0 (0-0.2) k/uL PT 10.9 (9.0-12.0) sec INR 1.0 (<1.2) APTT 25.6 (22.0-30.0) sec NT-Pro-B Natriuret Pep 4880 pg/mL - EKG Data -: EKG Interpreted by Me (EKG is sinus rhythm 91 NE 260 QRS 118 QTc 612, p ositive PVCs) - Radiology Data Radiology results: report reviewed (Chest x-rays positive for CHF), image reviewed Disposition Clinical Impression: Acute pulmonary edema, Congestive heart failure Disposition: ADMITTED IP TO THIS HOSP Condition: Fair Is patient prescribed a controlled substance at d/c from ED?: No Referrals: [facility],Clinic [Primary Care Provider] - 1-2 days
--- NOTE | 2021-07-16 04:08 | XR ---
EXAMINATION TYPE: XR chest 1V portable DATE OF EXAM: 07/16/2021 COMPARISON: 03/12/2014 HISTORY: Short of breath TECHNIQUE: 2 view FINDINGS: Heart is enlarged. There is mild pulmonary interstitial edema. There are no hilar masses. M ediastinum within normal limits. IMPRESSION: There is new pulmonary interstitial edema and increased cardiomegaly compared to old exam . This could be acute interstitial pneumonia or acute heart failure.
[2021-07-16 04:40] LABS: Basophils % (A) 1 %; Eosinophils # (A) 0.1 k/uL (0-0.7); Eosinophils % (A) 2 %; HCT 39.3 % (39.0-53.0); Lymphocytes # (A) 0.7 k/uL (1.0-4.8); Lymphocytes % (A) 11 %; MCH 32.4 pg (25.0-35.0); MCHC 33.1 g/dL (31.0-37.0); MCV 97.9 fL (80.0-100.0); Mean Platelet Volume 9.1; Monocytes # (A) 0.5 k/uL (0-1.0); Monocytes % (A) 8 %; Neutrophils # (A) 4.8 k/uL (1.3-7.7); Neutrophils % (A) 77 %; Platelet Count 178 k/uL (150-450); RBC 4.02 m/uL (4.30-5.90); RDW 13.1 % (11.5-15.5); WBC 6.3 k/uL (3.8-10.6)
[2021-07-16 05:00] LABS: Partial Thromboplastin Time 25.6 sec (22.0-30.0); Prothrombin Time 10.9 sec (9.0-12.0)
[2021-07-16 05:12] LABS: Albumin 4.1 g/dL (3.5-5.0); Calcium 9.1 mg/dL (8.4-10.2); Total Bilirubin 1.3 mg/dL (0.2-1.3)
[2021-07-16] MEDS ORDERED: NALOXONE 0.4 MG/ML 1 ML VIAL IV PRN (06:00)
[2021-07-16] MEDS ORDERED: ONDANSETRON 4 MG/2 ML VIAL IVP PRN (06:00)
[2021-07-16] MEDS ORDERED: MORPHINE SULFATE 4 MG/ML SYRINGE IV PRN (06:00)
[2021-07-16] MEDS ORDERED: FUROSEMIDE 10 MG/ML 4 ML VIAL IV SCH (06:00)
[2021-07-16 06:15] LABS: Magnesium 1.6 mg/dL (1.6-2.3); Potassium 4.8 mmol/L (3.5-5.1)
--- NOTE | 2021-07-16 08:02 | P.HPIM ---
History of Present Illness This is a pleasant 75 years old male with past medical history of Diabetes Mellitus, Hyperlipidemia, Hypertension Patient presents because of the progressive exertional dyspnea and decreased leg swelling over one month, bilateral leg swelling and bilateral neck pain. However yesterday he started getting orthopnea, he could not lay down and his asked him to come to emergency room. Also patient is complaining of from dry cough and sore throat, mouth is making some clear phlegm. He denies chest pain or abdominal pain. No dizziness. He was complaining of from little diarrhea, he felt almost going to vomit this morning but did not. No urinary complaints. No weakness or numbness He denies smoking, alcohol or illicit drugs Vitals are stable and he is saturating 96% on room air. Labs were reviewed including unremarkable CBC except for mild lymphopenia at 0.7, INR is 1.0. Sodium is 124, carbon dioxide 17, creatinine 1.1, glucose 220 Liver enzymes not elevated. Troponin is high as 0.418, C-reactive protein 2.0. ProBNP is 4880 Coronavirus not detected. EKG showing normal sinus rhythm at 85 with first-degree AV block and incomplete right bundle branch block, no significant ST-T changes. Chest x-ray: Interstitial pulmonary edema with increased cardiomegaly In the emergency room patient was started on IV Lasix 40 mg every 8 hours and cardiology team were consulted. Review of Systems CONSTITUTIONAL: No fever, no malaise, no fatigue. HEENT: No recent visual problems or hearing problems. Denied any sore throat. CARDIOVASCULAR: no palpitations, no syncope. PULMONARY: No chest wall tenderness, no hemoptysis. GASTROINTESTINAL: No diarrhea, no nausea, no vomiting, no abdominal pain. Normoactive bowel sounds. NEUROLOGICAL: No headaches, no weakness, no numbness. HEMATOLOGICAL: Denies any bleeding or petechiae. GENITOURINARY: Denies any burning micturition, frequency, or urgency. MUSCULOSKELETAL/RHEUMATOLOGICAL: Denies any joint pain, swelling, or any muscle pain. ENDOCRINE: Denies any polyuria or polydipsia. Past Medical History Past Medical History: Diabetes Mellitus, Hyperlipidemia, Hypertension History of Any Multi-Drug Resistant Organisms: None Reported Past Surgical History: Hernia Repair Additional Past Surgical History / Comment(s): Right knee surgery CUT OUT CARTILAGE, hernia repair Past Anesthesia/Blood Transfusion Reactions: No Reported Reaction Past Psychological History: No Psychological Hx Reported Smoking Status: Never smoker Past Alcohol Use History: Occasional Past Drug Use History: None Reported - Past Family History Father Additional Family Medical History / Comment(s): AT AGE 84-CANCER OF LARNYX (SMOKER), CARDIAC PROBLEMS Mother Family Medical History: Diabetes Mellitus Additional Family Medical History / Comment(s): AT AGE 83- HAD A PITUITARY TUMOR REMOVED HAD SON CRISIS Medications and Allergies Home Medications Medication Instructions Recorded Confirmed Type metFORMIN HCL [Glucophage] 1,000 mg PO QAM 03/10/14 02/05/18 History amLODIPine BESYLATE [Norvasc] 10 mg PO DAILY 03/13/14 02/05/18 History metFORMIN HCL [Glucophage] 500 mg PO HS 02/05/18 02/05/18 History Aspirin 81 mg PO DAILY #30 chewable 02/06/18 Rx Atorvastatin [Lipitor] 80 mg PO HS #30 tab 02/06/18 Rx Cephalexin [Keflex] 500 mg PO Q12HR 10 Days #20 cap 05/20/18 Rx Ibuprofen [Motrin] 600 mg PO Q8HR PRN #30 tab 11/15/18 Rx Allergies Allergy/AdvReac Type Severity Reaction Status Date / Time No Known Allergies Allergy Verified 07/16/21 03:02 Physical Exam Vitals: Vital Signs Temp Pulse Resp BP Pulse Ox 07/16/21 06:07 98.9 F 74 18 137/90 96 07/16/21 05:06 98.8 F 81 12 137/90 97 07/16/21 03:03 97.7 F 97 20 125/75 96 Intake and Output 07/15/21 07/16/21 07/16/21 22:59 06:59 14:59 Other: Weight 90.718 kg GENERAL: The patient is alert and oriented x3, not in any acute distress. Well developed, well nourished. HEENT: Pupils are round and equally reacting to light. EOMI. No scleral icterus. No conjunctival pallor. Normocephalic, atraumatic. No pharyngeal erythema. No thyromegaly. CARDIOVASCULAR: S1 and S2 present. No murmurs, rubs, or gallops. -PULMONARY: Chest is clear to auscultation, no wheezing . Bilateral basal crepitation ABDOMEN: Soft, nontender, nondistended, normoactive bowel sounds. No palpable organomegaly. MUSCULOSKELETAL: No joint swelling or deformity. -EXTREMITIES: No cyanosis, clubbing, . Bilateral pitting leg edema. NEUROLOGICAL: Gross neurological examination did not reveal any focal deficits. SKIN: No rashes. No petechiae Results CBC & Chem 7: 07/16/21 03:26 07/16/21 03:26 Labs: Abnormal Lab Results - Last 24 Hours (Table) 07/16/21 07/16/21 07/16/21 Range/Units 03:26 03:26 03:26 RBC 4.02 L (4.30-5.90) m/uL Lymphocytes # 0.7 L (1.0-4.8) k/uL Sodium 124 L (137-145) mmol/L Chloride 92 L (98-107) mmol/L Carbon Dioxide 17 L (22-30) mmol/L BUN 25 H (9-20) mg/dL Glucose 220 H (74-99) mg/dL Lactate Dehydrogenase 814 H (313-618) U/L Troponin I 0.418 H* (0.000-0.034) ng/mL C-Reactive Protein 2.0 H (<1.0) mg/dL Assessment and Plan Assessment: Acute heart failure, to check for ejection fraction Sore throat, rule out coronavirus infection Hyponatremia Diabetes mellitus, With hyperglycemia upon admission Hypertension Hyperlipidemia Plan: this is a pleasant 75 years old male who presents with possible acute CHF and high troponin. Continue with IV Lasix and monitor creatinine and electrolytes, follow-up echocardiograms Cardiology consult recheck coronavirus tested with PCR check pro-calcitonin, check hemoglobin A1c Labs and medication were reviewed.. Continue same treatment. Continue with symptomatic treatment. Resume home medication. Monitor lytes and vitals. DVT and GI prophylaxis. Further recommendations depends on the clinical course of the patient DVT prophylaxis: Subcutaneous heparin GI Prophylaxis: Pepcid PT/OT: Pending Prognosis is guarded
[2021-07-16 08:04] LABS: Appearance,Urine Clear (Clear); Bilirubin,Urine Negative (Negative); Blood,Urine Negative (Negative); Color,Urine Light Yellow; Glucose,Urine (UA) Negative (Negative); Ketones,Urine 1+ (Negative); Leukocyte Esterase,Urine Negative (Negative); Nitrite,Urine Negative (Negative); Protein,Urine Negative (Negative); Specific Gravity,Urine 1.012 (1.001-1.035); Urobilinogen,Urine <2.0 mg/dL (<2.0)
[2021-07-16 08:28] LABS: Calcium 9.3 mg/dL (8.4-10.2); Potassium 4.6 mmol/L (3.5-5.1)
[2021-07-16] MEDS ORDERED: HEPARIN SODIUM,PORCINE/PF 5,000 UNIT/0.5 ML SYRINGE SQ SCH (09:00)
[2021-07-16] MEDS: FUROSEMIDE 10 MG/ML 4 ML VIAL IV SCH ×2 (10:07→20:13)
[2021-07-16] MEDS: FAMOTIDINE 20 MG/2 ML VIAL IV SCH ×2 (10:24→20:13)
--- NOTE | 2021-07-16 10:51 | ECHOF ---
Referral Reason:Heart Failure MEASUREMENTS -------- HEIGHT: 180.3 cm WEIGHT: 90.7 kg BP: RVIDd: 2.3 cm (< 3.3) IVSd: 1.4 cm (0.6 - 1.1) LVIDd: 5.5 cm (3.9 - 5.3) LVPWd: 1.0 cm (0.6 - 1.1) IVSs: 1.8 cm LVIDs: 4.4 cm LVPWs: 1.2 cm Ao Diam: 3.6 cm (2.0 - 3.7) AV Cusp: 1.2 cm (1.5 - 2.6) LA Diam: 4.3 cm (2.7 - 3.8) MV EXCURSION: 15.271 mm (> 18.000) MV EF SLOPE: 44 mm/s (70 - 150) EPSS: 1.1 cm MV E Vipul: 1.38 m/s MV DecT: 170 ms MV A Vipul: 0.67 m/s MV E/A Ratio: 2.08 AV maxP.31 mmHg AV meanP.04 mmHg AR PHT: 603 ms RAP: 5.00 mmHg RVSP: 10.74 mmHg FINDINGS -------- This was a technically difficult study with suboptimal views. The left ventricular size is normal. There is mild concentric left ventricular hypertrophy. Overa ll left ventricular systolic function is moderate-severely impaired with, an EF between 30 - 35 %. The right ventricle is normal in size. The left atrial size is normal. The right atrial size is normal. Lumason used Aortic valve is trileaflet and is mildly thickened. There is mild aortic regurgitation. Mild aort ic stenosis with peak/mean pressure gradient of 18.31mmHg / 10.04mmHg , the aortic valve area by cont inuity equation is 0.8cm. Peak/mean gradient across the Aortic Valve is 18.31mmHg / 10.04mmHg. The mitral valve is normal. The mitral valve leaflets are mildly thickened. Mild mitral annular c alcification present. Moderate mitral regurgitation is present. The tricuspid valve appears structurally normal. Mild tricuspid regurgitation present. Right vent ricular systolic pressure is normal at < 35 mmHg. There is no pulmonic regurgitation present. The aortic root size is normal. IVC Not well visulized. There is a trivial pericardial effusion present. CONCLUSIONS -------- 1. The left ventricular size is normal. 2. There is mild concentric left ventricular hypertrophy. 3. Overall left ventricular systolic function is moderate-severely impaired with, an EF between 30 - 35 %. 4. Aortic valve is trileaflet and is mildly thickened. 5. There is mild aortic regurgitation. 6. Mild aortic stenosis with peak/mean pressure gradient of 18.31mmHg / 10.04mmHg , the aortic valve area by continuity equation is 0.8cm. 7. Peak/mean gradient across the Aortic Valve is 18.31mmHg / 10.04mmHg. 8. The mitral valve leaflets are mildly thickened. 9. Mild mitral annular calcification present. 10. Moderate mitral regurgitation is present. 11. Mild tricuspid regurgitation present. 12. There is a trivial pericardial effusion present. PLANNER CHIEF: Ina Patton RDCS
[2021-07-16 11:45] LABS: Glucose,Whole Blood 171 mg/dL (75-99)
[2021-07-16] MEDS: INSULIN ASPART (NovoLOG) 100 UNIT/ML VIAL SQ SCH ×4 (12:11→20:18)
[2021-07-16 17:04] LABS: Glucose,Whole Blood 159 mg/dL (75-99)
[2021-07-16] MEDS: metFORMIN 500 MG TAB PO SCH (17:14)
[2021-07-16] MEDS ORDERED: HEPARIN SODIUM 1,000 UN/ML (10ML VL) IV PRN (17:30)
[2021-07-16] MEDS ORDERED: HEPARIN SODIUM 1,000 UN/ML (10ML VL) IV ONE (17:30)
--- NOTE | 2021-07-16 17:30 | P.CRDCN ---
History of Present Illness History of present illness: HISTORY OF PRESENTING ILLNESS She is a pleasant 75-year-old male with history of diabetes mellitus type 2, hyperlipidemia, hypertension and new cardiomyopathy who presents secondary to increased episodes of shortness of breath over the last 1 month. He states he has noticed increased lower extremity edema, orthopnea, dyspnea on exertion with increased weight gain. This has been fairly progressive over a month and then got to the point that his told him to come to the emergency department. Additionally he has noticed pain in both jaws which is worse with exertion and improved with rest. He states his has felt much better and currently denies any jaw pain. He denies any actual chest pain or pressure, no nausea or diaphoresis. He denies any prior history of CAD. EEG performed shows normal sinus rhythm, Q wave in lead 3 and aVF, normal axis, minimal Q-wave V3 V4, T-wave inversion the [address] depression in V5 V6. Blood work shows white blood cells 6.3 hemoglobin 13.0, sodium 124, bicarb 17, BUN 25, creatinine 1.1, hemoglobin A1c 8.6, troponin 0.4, 0.5, 0.8, proBNP 4800, pro-calcitonin 0.13. REVIEW OF SYSTEMS At the time of my exam: CONSTITUTIONAL: Denies fever or chills. CARDIOVASCULAR: Denies chest pain, +shortness of breath, +orthopnea, no PND or palpitations. +jaw pain RESPIRATORY: Denies cough. GASTROINTESTINAL: Denies abdominal pain, diarrhea, constipation, nausea or vomiting. MUSCULOSKELETAL: Denies myalgias. NEUROLOGIC: Denies numbness, tingling or weakness. ENDOCRINE: Denies fatigue, weight change, polydipsia or polyurina. GENITOURINARY: Denies burning, hematuria or urgency with micturation. HEMATOLOGIC: Denies history of anemia or bleeding. PHYSICAL EXAMINATION Vital signs reviewed. CONSTITUTIONAL: No apparent distress. HEENT: Head is normocephalic. Pupils are equal, round. Sclerae anicteric. Mucous membranes of the mouth are moist. No JVD. No carotid bruit. CHEST EXAMINATION: Lungs are clear to auscultation. No chest wall tenderness is noted on palpation or with deep breathing. HEART EXAMINATION: Regular rate and rhythm. S1, S2 heard. No murmurs, gallops or rub. ABDOMEN: Soft, nontender. Positive bowel sounds. EXTREMITIES: 2+ peripheral pulses, no lower extremity edema and no calf tenderness. NEUROLOGIC EXAMINATION: Patient is awake, alert and oriented x3. ASSESSMENT 1. Acute on chronic systolic heart failure 2. Cardiomyopathy EF 30-35% 3. Non-STEMI, concern of type I mechanism with new symptoms of jaw pain worse with exertion consistent with angina 4. Diabetes mellitus type 2 5. Hyperlipidemia 6. Hypertension 7. Hyponatremia related to heart failure, volume overload PLAN Discussed with patient results of echo and findings of heart failure. Continue diuresis. Attempt to optimize heart failure regimen as able. Check lipid profile and high intensity statin. His symptoms of jaw pain appear consistent with angina with non-STEMI and new cardiomyopathy. Therefore discussed recommendations for heart catheterization likely Sunday if he is able lie flat and creatinine remained stable. Further recommendations to follow. Discussed that if his jaw pain recurs we would use nitroglycerin and may consider more urgent heart catheterization. Past Medical History Past Medical History: Diabetes Mellitus, Hyperlipidemia, Hypertension History of Any Multi-Drug Resistant Organisms: None Reported Past Surgical History: Hernia Repair Additional Past Surgical History / Comment(s): Right knee surgery CUT OUT CARTILAGE, hernia repair Past Anesthesia/Blood Transfusion Reactions: No Reported Reaction Past Psychological History: No Psychological Hx Reported Smoking Status: Never smoker Past Alcohol Use History: Occasional Past Drug Use History: None Reported - Past Family History Father Additional Family Medical History / Comment(s): AT AGE 84-CANCER OF LARNYX (SMOKER), CARDIAC PROBLEMS Mother Family Medical History: Diabetes Mellitus Additional Family Medical History / Comment(s): AT AGE 83- HAD A PITUITARY TUMOR REMOVED HAD SON CRISIS Medications and Allergies Home Medications Medication Instructions Recorded Confirmed Type Aspirin 81 mg PO DAILY #30 chewable 02/06/18 07/16/21 Rx Simvastatin [Zocor] 20 mg PO DAILY 07/16/21 07/16/21 History lisinopriL [Prinivil] 20 mg PO DAILY 07/16/21 07/16/21 History metFORMIN HCL [Glucophage] 1,000 mg PO BID 07/16/21 07/16/21 History Allergies Allergy/AdvReac Type Severity Reaction Status Date / Time No Known Allergies Allergy Verified 07/16/21 08:31 Physical Exam Vitals: Vital Signs Temp Pulse Pulse Resp BP BP Pulse Ox 07/16/21 15:55 97.5 F L 88 20 128/77 98 07/16/21 15:07 97.8 F 80 20 116/77 98 07/16/21 12:30 18 97 07/16/21 10:27 78 18 115/81 98 07/16/21 07:25 97.6 F 82 18 131/86 94 L 07/16/21 06:07 98.9 F 74 18 137/90 96 07/16/21 05:06 98.8 F 81 12 137/90 97 07/16/21 03:03 97.7 F 97 20 125/75 96 Intake and Output 07/16/21 07/16/21 07/16/21 06:59 14:59 22:59 Output Total 1350 Balance -1350 Output: Urine 1350 Other: # Voids 2 Weight 90.718 kg Results 07/16/21 03:26 07/16/21 07:54 Cardiac Enzymes 07/16/21 07/16/21 07/16/21 Range/Units 03:26 03:26 07:54 AST 52 (17-59) U/L Lactate Dehydrogenase 814 H (313-618) U/L Troponin I 0.418 H* 0.539 H* (0.000-0.034) ng/mL 07/16/21 Range/Units 11:05 AST (17-59) U/L Lactate Dehydrogenase (313-618) U/L Troponin I 0.839 H* (0.000-0.034) ng/mL Coagulation 07/16/21 Range/Units 03:26 PT 10.9 (9.0-12.0) sec APTT 25.6 (22.0-30.0) sec CBC 07/16/21 Range/Units 03:26 WBC 6.3 (3.8-10.6) k/uL RBC 4.02 L (4.30-5.90) m/uL Hgb 13.0 (13.0-17.5) gm/dL Hct 39.3 (39.0-53.0) % Plt Count 178 (150-450) k/uL Comprehensive Metabolic Panel 07/16/21 07/16/21 Range/Units 03:26 07:54 Sodium 124 L 127 L (137-145) mmol/L Potassium 4.8 4.6 (3.5-5.1) mmol/L Chloride 92 L 93 L (98-107) mmol/L Carbon Dioxide 17 L 23 (22-30) mmol/L BUN 25 H 23 H (9-20) mg/dL Creatinine 1.19 1.16 (0.66-1.25) mg/dL Glucose 220 H 185 H (74-99) mg/dL Calcium 9.1 9.3 (8.4-10.2) mg/dL AST 52 (17-59) U/L ALT 39 (4-49) U/L Alkaline Phosphatase 55 (38-126) U/L Total Protein 7.0 (6.3-8.2) g/dL Albumin 4.1 (3.5-5.0) g/dL Current Medications Generic Name Dose Route Start Last Admin Trade Name Freq PRN Reason Stop Dose Admin Aspirin 81 mg 07/17/21 09:00 Aspirin 81 Mg PO DAILY [facility] Atorvastatin Calcium 40 mg 07/16/21 21:00 Atorvastatin 40 Mg Tab PO HS [facility] Famotidine 20 mg 07/16/21 09:00 07/16/21 10:24 Famotidine 20 Mg/2 Ml Vial IV 20 mg Q12HR [facility] Administration Furosemide 40 mg 07/16/21 08:00 07/16/21 10:07 Furosemide 10 Mg/Ml 4 Ml Vial IV Not Given Q12H [facility] Insulin Aspart 0 unit 07/16/21 07:30 07/16/21 17:14 Insulin Aspart (Novolog) 100 Unit/Ml Vial SQ 1 unit ACHS [facility] Administration Protocol Lisinopril 20 mg 07/17/21 09:00 Lisinopril 20 Mg Tab PO DAILY [facility] Metformin HCl 1,000 mg 07/16/21 17:30 07/16/21 17:14 Metformin 500 Mg Tab PO 1,000 mg BID-W/MEALS [facility] Administration Morphine Sulfate 4 mg 07/16/21 06:00 Morphine Sulfate 4 Mg/Ml Syringe IV Q4HR PRN Severe Pain Naloxone HCl 0.2 mg 07/16/21 06:00 Naloxone 0.4 Mg/Ml 1 Ml Vial IV Q2M PRN Opioid Reversal Ondansetron HCl 4 mg 07/16/21 06:00 Ondansetron 4 Mg/2 Ml Vial IVP Q8HR PRN Nausea And Vomiting Intake and Output 07/16/21 07/16/21 07/16/21 06:59 14:59 22:59 Output Total 1350 Balance -1350 Output: Urine 1350 Other: # Voids 2 Weight 90.718 kg 07/16/21 03:26 07/16/21 07:54
[2021-07-16] MEDS: METOPROLOL SUCCINATE (ER) 25 MG TAB.ER.24H PO SCH (17:56)
[2021-07-16 18:35] LABS: Basophils % (A) 1 %; Eosinophils # (A) 0.1 k/uL (0-0.7); Eosinophils % (A) 2 %; HCT 40.5 % (39.0-53.0); HGB 13.2 gm/dL (13.0-17.5); Lymphocytes # (A) 0.6 k/uL (1.0-4.8); Lymphocytes % (A) 12 %; MCH 31.7 pg (25.0-35.0); MCHC 32.6 g/dL (31.0-37.0); MCV 97.2 fL (80.0-100.0); Mean Platelet Volume 8.4; Monocytes # (A) 0.5 k/uL (0-1.0); Monocytes % (A) 9 %; Neutrophils # (A) 3.9 k/uL (1.3-7.7); Neutrophils % (A) 74 %; Partial Thromboplastin Time 26.2 sec (22.0-30.0); Platelet Count 162 k/uL (150-450); RBC 4.17 m/uL (4.30-5.90); RDW 12.4 % (11.5-15.5); WBC 5.2 k/uL (3.8-10.6)
[2021-07-16] MEDS: HEPARIN SOD,PORK IN 0.45% NACL 25,000 UNIT in 0.45% NACL 1 250ML.BAG IV SCH (19:11)
[2021-07-16] MEDS: ATORVASTATIN 40 MG TAB PO SCH (20:13)
[2021-07-16 20:34] LABS: Glucose,Whole Blood 150 mg/dL (75-99)
[2021-07-17] MEDS: metFORMIN 500 MG TAB PO SCH (06:36)
[2021-07-17] MEDS: INSULIN ASPART (NovoLOG) 100 UNIT/ML VIAL SQ SCH ×4 (06:37→20:54)
[2021-07-17 06:53] LABS: Glucose,Whole Blood 149 mg/dL (75-99)
[2021-07-17] MEDS: FUROSEMIDE 10 MG/ML 4 ML VIAL IV SCH (08:48)
[2021-07-17] MEDS: ASPIRIN 81 MG PO SCH (08:48)
[2021-07-17] MEDS: FAMOTIDINE 20 MG/2 ML VIAL IV SCH (08:48)
[2021-07-17] MEDS ORDERED: lisinopriL 20 MG TAB PO SCH (09:00)
[2021-07-17 09:34] LABS: Chol/HDL Ratio 2.92 Ratio; LDL Cholesterol,Calculated 71.5 mg/dL (0.0-131.0)
[2021-07-17 11:00] LABS: Prothrombin Time 10.8 sec (9.0-12.0)
[2021-07-17 11:03] LABS: Calcium 9.1 mg/dL (8.4-10.2); Magnesium 1.7 mg/dL (1.6-2.3); Potassium 4.4 mmol/L (3.5-5.1)
[2021-07-17 11:14] LABS: Basophils # (A) 0.1 k/uL (0-0.2); Basophils % (A) 1 %; Eosinophils # (A) 0.1 k/uL (0-0.7); Eosinophils % (A) 2 %; HGB 13.3 gm/dL (13.0-17.5); Lymphocytes # (A) 0.8 k/uL (1.0-4.8); Lymphocytes % (A) 12 %; MCH 32.8 pg (25.0-35.0); MCHC 34.1 g/dL (31.0-37.0); MCV 96.1 fL (80.0-100.0); Mean Platelet Volume 8.9; Monocytes # (A) 0.8 k/uL (0-1.0); Monocytes % (A) 11 %; Neutrophils % (A) 72 %; Platelet Count 166 k/uL (150-450); RBC 4.06 m/uL (4.30-5.90); RDW 12.5 % (11.5-15.5); WBC 6.9 k/uL (3.8-10.6)
--- NOTE | 2021-07-17 11:27 | P.PN ---
Subjective This is a pleasant 75 years old male with past medical history of Diabetes Mellitus, Hyperlipidemia, Hypertension Patient presents because of the progressive exertional dyspnea and decreased leg swelling over one month, bilateral leg swelling and bilateral neck pain. However yesterday he started getting orthopnea, he could not lay down and his w talita asked him to come to emergency room. Also patient is complaining of from dry cough and sore throat, mouth is making some clear phlegm. He denies chest pain or abdominal pain. No dizziness. He was complaining of from little diarrhea, he felt almost going to vomit this morning but did not. No urinary complaints. No weakness or numbness He denies smoking, alcohol or illicit drugs Vitals are stable and he is saturating 96% on room air. Labs were reviewed including unremarkable CBC except for mild lymphopenia at 0.7, INR is 1.0. Sodium is 124, carbon dioxide 17, creatinine 1.1, glucose 220 Liver enzymes not elevated. Troponin is high as 0.418, C-reactive protein 2.0. ProBNP is 4880 Coronavirus not detected. EKG showing normal sinus rhythm at 85 with first-degree AV block and incomplete right bundle branch block, no significant ST-T changes. Chest x-ray: Interstitial pulmonary edema with increased cardiomegaly In the emergency room patient was started on IV Lasix 40 mg every 8 hours and cardiology team were consulted. 07/17/2021 Patient breathing is better, he does not complain from jaw pain or neck pain anymore, he is breathing easier, less leg edema. Patient is continued on IV Lasix 40 mg twice daily, also he is on heparin drip His sodium is improved today to 1.7 however his creatinine went up to 1.4. Because of his worsening kidney function we hold his metformin and switch him to Amaryl 2 mg daily, patient informed of his uncontrolled diabetes as his hemoglobin A1c is a 42.6%. Echocardiogram showed ejection fraction of 30-35% with moderate mitral regurgitation, 2018 8 was 55-60% Patient possibly will go for cardiac cath tomorrow Objective - Vital Signs Vital signs: Vital Signs Temp 98.5 F 07/17/21 07:55 Pulse 78 07/17/21 07:55 Resp 20 07/17/21 07:55 BP 104/66 07/17/21 07:55 Pulse Ox 97 07/17/21 07:55 Intake & Output 07/16/21 07/17/21 07/17/21 18:59 06:59 18:59 Output Total 1350 1000 Balance -1350 -1000 Weight 90.718 kg Output: Urine 1350 1000 Other: # Voids 2 - Exam GENERAL: The patient is alert and oriented x3, not in any acute distress. Well developed, well nourished. HEENT: Pupils are round and equally reacting to light. EOMI. No scleral icterus. No conjunctival pallor. Normocephalic, atraumatic. No pharyngeal erythema. No thyromegaly. CARDIOVASCULAR: S1 and S2 present. No murmurs, rubs, or gallops. -PULMONARY: Chest is clear to auscultation, no wheezing . Bilateral basal c repitation ABDOMEN: Soft, nontender, nondistended, normoactive bowel sounds. No palpable organomegaly. MUSCULOSKELETAL: No joint swelling or deformity. -EXTREMITIES: No cyanosis, clubbing, . Bilateral pitting leg edema. NEUROLOGICAL: Gross neurological examination did not reveal any focal deficits. SKIN: No rashes. No petechiae - Labs CBC & Chem 7: 07/17/21 10:19 07/17/21 10:19 Labs: Abnormal Lab Results - Last 24 Hours (Table) 07/16/21 07/16/21 07/16/21 Range/Units 07:54 07:55 11:05 RBC (4.30-5.90) m/uL Lymphocytes # (1.0-4.8) k/uL APTT (22.0-30.0) sec POC Glucose (mg/dL) (75-99) mg/dL Hemoglobin A1c 8.6 H (4.0-6.0) % Troponin I 0.839 H* (0.000-0.034) ng/mL Procalcitonin 0.13 H (0.02-0.09) ng/mL 07/16/21 07/16/21 07/16/21 Range/Units 11:44 17:02 18:00 RBC 4.17 L (4.30-5.90) m/uL Lymphocytes # 0.6 L (1.0-4.8) k/uL APTT (22.0-30.0) sec POC Glucose (mg/dL) 171 H 159 H (75-99) mg/dL Hemoglobin A1c (4.0-6.0) % Troponin I (0.000-0.034) ng/mL Procalcitonin (0.02-0.09) ng/mL 07/16/21 07/16/21 07/17/21 Range/Units 18:00 20:16 01:07 RBC (4.30-5.90) m/uL Lymphocytes # (1.0-4.8) k/uL APTT 65.6 H (22.0-30.0) sec POC Glucose (mg/dL) 150 H (75-99) mg/dL Hemoglobin A1c (4.0-6.0) % Troponin I 1.030 H* (0.000-0.034) ng/mL Procalcitonin (0.02-0.09) ng/mL 07/17/21 Range/Units 06:29 RBC (4.30-5.90) m/uL Lymphocytes # (1.0-4.8) k/uL APTT (22.0-30.0) sec POC Glucose (mg/dL) 149 H (75-99) mg/dL Hemoglobin A1c (4.0-6.0) % Troponin I (0.000-0.034) ng/mL Procalcitonin (0.02-0.09) ng/mL Microbiology - Last 24 Hours (Table) 07/16/21 07:48 Group A Strep Throat Culture - Preliminary Throat Assessment and Plan Assessment: Acute systolic heart failure, , ischemic cardiomyopathy is suspected with ejection fraction of 30-35% None STEMI Acute kidney injury, suspected secondary to diuresis. Sore throat, improved, coronavirus is negative Hyponatremia Diabetes mellitus, With hyperglycemia upon admission . Hemoglobin A1c is 8.6% Hypertension Hyperlipidemia Plan: this is a pleasant 75 years old male who presents with possible acute CHF and high troponin. Continue with IV Lasix and monitor creatinine and electrolytes, follow-up echocardiograms Cardiology consult . Possible patient on for cardiac cath on Tuesday 07/18 Consult nephrology consult Continue with fluid restriction 1500 mL per day Hold metformin for worsening creatinine and start Amaryl. Nephrology consult Labs and medication were reviewed.. Continue same treatment. Continue with symptomatic treatment. Resume home medication. Monitor lytes and vitals. DVT and GI prophylaxis. Further recommendations depends on the clinical course of the patient DVT prophylaxis: Subcutaneous heparin GI Prophylaxis: Pepcid PT/OT: Pending Prognosis is guarded
[2021-07-17 12:03] LABS: Glucose,Whole Blood 130 mg/dL (75-99)
--- NOTE | 2021-07-17 15:14 | P.PN ---
Subjective HISTORY OF PRESENTING ILLNESS She is a pleasant 75-year-old male with history of diabetes mellitus type 2, hyperlipidemia, hypertension and new cardiomyopathy who presents secondary to increased episodes of shortness of breath over the last 1 month. He states he has noticed increased lower extremity edema, orthopnea, dyspnea on exertion with increased weight gain. This has been fairly progressive over a month and then got to the point that his told him to come to the emergency department. Additionally he has noticed pain in both jaws which is worse with exertion and improved with rest. He states his has felt much better and currently denies any jaw pain. He denies any actual chest pain or pressure, no nausea or diaphoresis. He denies any prior history of CAD. EEG performed shows normal sinus rhythm, Q wave in lead 3 and aVF, normal axis, minimal Q-wave V3 V4, T- wave inversion the [address] depression in V5 V6. Blood work shows white blood cells 6.3 hemoglobin 13.0, sodium 124, bicarb 17, BUN 25, creatinine 1.1, hemoglobin A1c 8.6, troponin 0.4, 0.5, 0.8, proBNP 4800, pro-calcitonin 0.13. 07/17 Patient seen and examined. Patient has been receiving diuretics with Lasix 40 mg IV twice a day. Blood work shows increased creatinine to 1.4. He was also started on lisinopril 20 mg daily and blood pressures have been somewhat borderline. He did have 5 episodes of a second degree block, not obvious type I versus type II and appears fairly similar [place] interval more consistent with type II. He denies any syncope or lightheadedness. REVIEW OF SYSTEMS At the time of my exam: CONSTITUTIONAL: Denies fever or chills. CARDIOVASCULAR: Denies chest pain, +shortness of breath, +orthopnea, no PND or palpitations. +jaw pain RESPIRATORY: Denies cough. GASTROINTESTINAL: Denies abdominal pain, diarrhea, constipation, nausea or vomiting. MUSCULOSKELETAL: Denies myalgias. NEUROLOGIC: Denies numbness, tingling or weakness. ENDOCRINE: Denies fatigue, weight change, polydipsia or polyurina. GENITOURINARY: Denies burning, hematuria or urgency with micturation. HEMATOLOGIC: Denies history of anemia or bleeding. PHYSICAL EXAMINATION Vital signs reviewed. CONSTITUTIONAL: No apparent distress. HEENT: Head is normocephalic. Pupils are equal, round. Sclerae anicteric. Mucous membranes of the mouth are moist. No JVD. No carotid bruit. CHEST EXAMINATION: Lungs are clear to auscultation. No chest wall tenderness is noted on palpation or with deep breathing. HEART EXAMINATION: Regular rate and rhythm. S1, S2 heard. No murmurs, gallops or rub. ABDOMEN: Soft, nontender. Positive bowel sounds. EXTREMITIES: 2+ peripheral pulses, no lower extremity edema and no calf tenderness. NEUROLOGIC EXAMINATION: Patient is awake, alert and oriented x3. ASSESSMENT 1. Acute on chronic systolic heart failure 2. Cardiomyopathy EF 30-35% 3. Non-STEMI, concern of type I mechanism with new symptoms of jaw pain worse with exertion consistent with angina 4. Diabetes mellitus type 2 5. Hyperlipidemia 6. Hypertension 7. Hyponatremia likely related to heart failure 8. 2nd degree AV block. Do not appreciate [place] prolongation and may be type 2 block. PLAN Attempt to optimize heart failure regimen as able however increased Cr and concern of borderline BP's. His symptoms of jaw pain appear consistent with angina with non-STEMI and new cardiomyopathy. Likely cath sunday if Cr improved. May have been overdiuresed and hold Lasix and give back 250cc bolus. Further recommendations to follow. Monitor for any further AV block while on BBlocker. Patient may eventually require AICD and at this time monitor. Objective - Vital Signs Vital signs: Vital Signs Temp 97.4 F L 07/17/21 11:49 Pulse 72 07/17/21 11:49 Resp 20 07/17/21 11:49 BP 106/60 07/17/21 11:49 Pulse Ox 99 07/17/21 11:49 Intake & Output 07/16/21 07/17/21 07/17/21 18:59 06:59 18:59 Intake Total 420 Output Total 1350 1000 650 Balance -1350 -1000 -230 Weight 90.718 kg Intake: Oral 420 Output: Urine 1350 1000 650 Other: # Voids 2 - Labs CBC & Chem 7: 07/17/21 10:19 07/17/21 10:19 Labs: Abnormal Lab Results - Last 24 Hours (Table) 07/16/21 07/16/21 07/16/21 Range/Units 17:02 18:00 18:00 RBC 4.17 L (4.30-5.90) m/uL Lymphocytes # 0.6 L (1.0-4.8) k/uL APTT (22.0-30.0) sec Sodium (137-145) mmol/L Chloride (98-107) mmol/L BUN (9-20) mg/dL Creatinine (0.66-1.25) mg/dL Glucose (74-99) mg/dL POC Glucose (mg/dL) 159 H (75-99) mg/dL Troponin I 1.030 H* (0.000-0.034) ng/mL 07/16/21 07/17/21 07/17/21 Range/Units 20:16 01:07 06:29 RBC (4.30-5.90) m/uL Lymphocytes # (1.0-4.8) k/uL APTT 65.6 H (22.0-30.0) sec Sodium (137-145) mmol/L Chloride (98-107) mmol/L BUN (9-20) mg/dL Creatinine (0.66-1.25) mg/dL Glucose (74-99) mg/dL POC Glucose (mg/dL) 150 H 149 H (75-99) mg/dL Troponin I (0.000-0.034) ng/mL 07/17/21 07/17/21 07/17/21 Range/Units 10:19 10:19 12:01 RBC 4.06 L (4.30-5.90) m/uL Lymphocytes # 0.8 L (1.0-4.8) k/uL APTT (22.0-30.0) sec Sodium 127 L (137-145) mmol/L Chloride 91 L (98-107) mmol/L BUN 31 H (9-20) mg/dL Creatinine 1.42 H (0.66-1.25) mg/dL Glucose 130 H (74-99) mg/dL POC Glucose (mg/dL) 130 H (75-99) mg/dL Troponin I (0.000-0.034) ng/mL Microbiology - Last 24 Hours (Table) 07/16/21 07:48 Group A Strep Throat Culture - Preliminary Throat
[2021-07-17] MEDS ORDERED: SODIUM CHLORIDE 0.9% 1,000 ML IV SCH (15:15)
[2021-07-17] MEDS ORDERED: ALPRAZolam 0.25 MG TAB PO PRN (16:51)
[2021-07-17] MEDS ORDERED: NITROGLYCERIN SL TABS 0.4 MG TAB SUBLINGUAL PRN (16:51)
[2021-07-17] MEDS ORDERED: ALPRAZolam 0.5 MG TAB PO PRN (16:51)
[2021-07-17 16:54] LABS: Glucose,Whole Blood 153 mg/dL (75-99)
[2021-07-17] MEDS: METOPROLOL SUCCINATE (ER) 25 MG TAB.ER.24H PO SCH (17:07)
[2021-07-17] MEDS: HEPARIN SOD,PORK IN 0.45% NACL 25,000 UNIT in 0.45% NACL 1 250ML.BAG IV SCH (17:08)
[2021-07-17 20:35] LABS: Glucose,Whole Blood 166 mg/dL (75-99)
[2021-07-17] MEDS: ATORVASTATIN 40 MG TAB PO SCH (20:54)
[2021-07-17] MEDS ORDERED: FAMOTIDINE 20 MG TAB PO SCH (21:00)
[2021-07-18 05:28] LABS: Glucose,Whole Blood 136 mg/dL (75-99)
[2021-07-18] MEDS ORDERED: ATORVASTATIN 80 MG TAB PO ONE (06:00)
[2021-07-18] MEDS ORDERED: ASPIRIN 325 MG TAB PO ONE (06:00)
[2021-07-18] MEDS ORDERED: HEPARIN SODIUM,PORCINE 2,500 UNIT in SODIUM CHLORIDE 0.9% 250 ML IRRIGATION PRN (07:00)
[2021-07-18] MEDS ORDERED: HEPARIN SODIUM,PORCINE 10,000 UNIT in SODIUM CHLORIDE 0.9% 1,000 ML IRRIGATION PRN (07:00)
[2021-07-18 09:55] LABS: Basophils # (A) 0.1 k/uL (0-0.2); Basophils % (A) 1 %; Eosinophils # (A) 0.1 k/uL (0-0.7); Eosinophils % (A) 3 %; HCT 40.6 % (39.0-53.0); HGB 13.6 gm/dL (13.0-17.5); Lymphocytes # (A) 0.8 k/uL (1.0-4.8); Lymphocytes % (A) 16 %; MCH 32.3 pg (25.0-35.0); MCHC 33.4 g/dL (31.0-37.0); MCV 96.8 fL (80.0-100.0); Mean Platelet Volume 8.4; Monocytes # (A) 0.6 k/uL (0-1.0); Monocytes % (A) 12 %; Neutrophils # (A) 3.4 k/uL (1.3-7.7); Neutrophils % (A) 65 %; Platelet Count 173 k/uL (150-450); RDW 12.5 % (11.5-15.5); WBC 5.2 k/uL (3.8-10.6)
[2021-07-18 10:21] LABS: Calcium 9.8 mg/dL (8.4-10.2); Potassium 4.6 mmol/L (3.5-5.1)
[2021-07-18] MEDS: INSULIN ASPART (NovoLOG) 100 UNIT/ML VIAL SQ SCH ×3 (11:29→19:35)
[2021-07-18] MEDS: ASPIRIN 81 MG PO SCH (11:42)
[2021-07-18] MEDS: GLIMEPIRIDE 2 MG TAB PO SCH (11:42)
[2021-07-18] MEDS: lisinopriL 10 MG TAB PO SCH (11:43)
[2021-07-18] MEDS: FAMOTIDINE 20 MG TAB PO SCH (11:43)
[2021-07-18 12:04] LABS: Glucose,Whole Blood 142 mg/dL (75-99)
--- NOTE | 2021-07-18 13:29 | P.PN ---
Subjective This is a pleasant 75 years old male with past medical history of Diabetes Mellitus, Hyperlipidemia, Hypertension Patient presents because of the progressive exertional dyspnea and decreased leg swelling over one month, bilateral leg swelling and bilateral neck pain. However yesterday he started getting orthopnea, he could not lay down and his w talita asked him to come to emergency room. Also patient is complaining of from dry cough and sore throat, mouth is making some clear phlegm. He denies chest pain or abdominal pain. No dizziness. He was complaining of from little diarrhea, he felt almost going to vomit this morning but did not. No urinary complaints. No weakness or numbness He denies smoking, alcohol or illicit drugs Vitals are stable and he is saturating 96% on room air. Labs were reviewed including unremarkable CBC except for mild lymphopenia at 0.7, INR is 1.0. Sodium is 124, carbon dioxide 17, creatinine 1.1, glucose 220 Liver enzymes not elevated. Troponin is high as 0.418, C-reactive protein 2.0. ProBNP is 4880 Coronavirus not detected. EKG showing normal sinus rhythm at 85 with first-degree AV block and incomplete right bundle branch block, no significant ST-T changes. Chest x-ray: Interstitial pulmonary edema with increased cardiomegaly In the emergency room patient was started on IV Lasix 40 mg every 8 hours and cardiology team were consulted. 07/17/2021 Patient breathing is better, he does not complain from jaw pain or neck pain anymore, he is breathing easier, less leg edema. Patient is continued on IV Lasix 40 mg twice daily, also he is on heparin drip His sodium is improved today to 1.7 however his creatinine went up to 1.4. Because of his worsening kidney function we hold his metformin and switch him to Amaryl 2 mg daily, patient informed of his uncontrolled diabetes as his hemoglobin A1c is a 42.6%. Echocardiogram showed ejection fraction of 30-35% with moderate mitral regurgitation, 2018 8 was 55-60% Patient possibly will go for cardiac cath tomorrow 07/18/2021 Patient feels better, his breathing is easier. He has no more jaw pain, leg swelling is significantly improved he has crepitationandonlyminimal. He has some wheezing during examination most likely secondary to his CHF, patient is nonsmoker with no history of COPD. He is hemodynamically stable, he is on room air. Creatinine is trending up 1.1, 1.4, and 1.58 today. However sodium significantly improved up to 133. His Lasix was switched to 40 mg by mouth daily. His glucose is controlled 136 and 142 after he was started on Amaryl today we will keep monitoring, metformin was held for his acute kidney injury. He has slight ejection fraction of 30-35% with moderate MR and he needs cardiac cath however it is on hold now to further evaluation for his kidney injury, most likely secondary to diuresis, nephrology team was consulted, renal ultrasound is pending. 81 mg Objective - Vital Signs Vital signs: Vital Signs Temp 97.9 F 07/18/21 12:00 Pulse 79 07/18/21 12:00 Resp 18 07/18/21 12:00 BP 115/69 07/18/21 12:00 Pulse Ox 97 07/18/21 12:00 Intake & Output 07/17/21 07/18/21 07/18/21 18:59 06:59 18:59 Intake Total 1201.74 80 Output Total 800 300 Balance 401.74 -220 Intake: IV 132.24 80 Heparin Sod,Pork in 0.45% 132.24 80 NaCl 25,000 unit In 0.45 % NaCl 1 250ml.bag @ 11. 023 UNITS/KG/HR 10 mls/hr IV .Q24H [facility] Rx#: [id number] Intake, IV Titration 469.5 Amount Heparin Sod,Pork in 0.45% 219.5 NaCl 25,000 unit In 0.45 % NaCl 1 250ml.bag @ 11. 023 UNITS/KG/HR 10 mls/hr IV .Q24H [facility] Rx#: [id number] Sodium Chloride 0.9% 1, 250 000 ml @ 100 mls/hr IV . Q10H [facility] Rx#:[id number] Oral 600 Output: Urine 800 300 - Exam GENERAL: The patient is alert and oriented x3, not in any acute distress. Well developed, well nourished. HEENT: Pupils are round and equally reacting to light. EOMI. No scleral icterus. No conjunctival pallor. Normocephalic, atraumatic. No pharyngeal erythema. No thyromegaly. CARDIOVASCULAR: S1 and S2 present. No murmurs, rubs, or gallops. -PULMONARY: Chest is clear to auscultation, no wheezing . Bilateral basal crepitation ABDOMEN: Soft, nontender, nondistended, normoactive bowel sounds. No palpable organomegaly. MUSCULOSKELETAL: No joint swelling or deformity. -EXTREMITIES: No cyanosis, clubbing, . Bilateral pitting leg edema. NEUROLOGICAL: Gross neurological examination did not reveal any focal deficits. SKIN: No rashes. No petechiae - Labs CBC & Chem 7: 07/18/21 09:17 07/18/21 09:17 Labs: Abnormal Lab Results - Last 24 Hours (Table) 07/17/21 07/17/21 07/18/21 Range/Units 16:51 19:51 05:22 RBC (4.30-5.90) m/uL Lymphocytes # (1.0-4.8) k/uL APTT (22.0-30.0) sec Sodium (137-145) mmol/L Chloride (98-107) mmol/L BUN (9-20) mg/dL Creatinine (0.66-1.25) mg/dL Glucose (74-99) mg/dL POC Glucose (mg/dL) 153 H 166 H 136 H (75-99) mg/dL 07/18/21 07/18/21 07/18/21 Range/Units 09:17 09:17 09:17 RBC 4.20 L (4.30-5.90) m/uL Lymphocytes # 0.8 L (1.0-4.8) k/uL APTT 40.0 H (22.0-30.0) sec Sodium 133 L (137-145) mmol/L Chloride 95 L (98-107) mmol/L BUN 33 H (9-20) mg/dL Creatinine 1.57 H (0.66-1.25) mg/dL Glucose 152 H (74-99) mg/dL POC Glucose (mg/dL) (75-99) mg/dL 07/18/21 Range/Units 12:03 RBC (4.30-5.90) m/uL Lymphocytes # (1.0-4.8) k/uL APTT (22.0-30.0) sec Sodium (137-145) mmol/L Chloride (98-107) mmol/L BUN (9-20) mg/dL Creatinine (0.66-1.25) mg/dL Glucose (74-99) mg/dL POC Glucose (mg/dL) 142 H (75-99) mg/dL Assessment and Plan Assessment: Acute systolic heart failure, , ischemic cardiomyopathy is suspected with ejection fraction of 30-35% None STEMI Acute kidney injury, suspected secondary to diuresis. Sore throat, improved, coronavirus is negative Hyponatremia Diabetes mellitus, With hyperglycemia upon admission . Hemoglobin A1c is 8.6% Hypertension Hyperlipidemia Plan: this is a pleasant 75 years old male who presents with possible acute CHF and high troponin. Continue with oral Lasix and monitor creatinine and electrolytes Cardiology consult . Possible patient will need an for cardiac cath showed. Cartilage surfaces patient will need AICD open discharge Consult nephrology consult Continue with fluid restriction 1500 mL per day Hold metformin for worsening creatinine and start Amaryl. Nephrology consult Labs and medication were reviewed.. Continue same treatment. Continue with symptomatic treatment. Resume home medication. Monitor lytes and vitals. DVT and GI prophylaxis. Further recommendations depends on the clinical course of the patient DVT prophylaxis: Subcutaneous heparin GI Prophylaxis: Pepcid PT/OT: Pending Prognosis is guarded
--- NOTE | 2021-07-18 13:41 | US ---
EXAMINATION TYPE: US kidneys/renal and bladder DATE OF EXAM: 07/18/2021 COMPARISON: Prior renal ultrasound from March 13, 2014 CLINICAL HISTORY: rf. renal failure EXAM MEASUREMENTS: Right Kidney: 11.0 x 5.4 x 3.5 cm Left Kidney: 11.4 x 5.6 x 4.4 cm Right Kidney: no evidence of hydronephrosis Left Kidney: no evidence of hydronephrosis Bladder: wnl Bilateral Jets seen: no There is no evidence for hydronephrosis at this point in time. No nephrolithiasis is seen. No cleo s are identified. The urinary bladder is satisfactorily distended. Bilateral ureteral jets are not seen. IMPRESSION: No hydronephrosis is seen bilaterally.
--- NOTE | 2021-07-18 13:48 | CONS ---
CONSULTATION REASON FOR CONSULT: Renal failure. HISTORY OF PRESENT ILLNESS: Patient is a 75-year-old male who was admitted to the hospital on 07/16/2021 with progressive dyspnea, shortness of breath and increased lower extremity edema. Patient denies any previous history of kidney diseases. His chest x-ray showed evidence of pulmonary vascular congestion/interstitial edema. Patient is currently being diuresed. His creatinine is noted to be 1.57 mg/dL today. Previous creatinine 1.1 on initial admission on 07/16/2021. Review of previous labs shows a creatinine of 1.3 in 2018 and 1.02 in 2014. The patient states he has no trouble voiding. A 24 hour output documented at 2.3 L. Blood pressure is noted to be low with systolic around 95 mmHg yesterday. I do not see any IV contrast administration and patient denies use of nonsteroidal anti- inflammatory agents prior to admission. Ejection fraction 30-35 percent noted on current echocardiogram. PAST MEDICAL HISTORY: Hypertension, type 2 diabetes, hyperlipidemia. PAST SURGICAL HISTORY: Hernia repair, right knee surgery. SOCIAL HISTORY: Negative for smoking, drug abuse or alcohol abuse. MEDICATIONS: Medications prior to admission included metformin, amlodipine, aspirin, Lipitor, Keflex, occasional Motrin, however patient denied that. ALLERGIES: None. REVIEW OF SYSTEMS: As per HPI. Other systems negative. EXAMINATION: Comfortable, awake, not in any acute distress. Alert, oriented x3. Blood pressure 115/69, heart rate 79 per minute. He is afebrile. Examination of the heart S1, S2. Examination of the lungs, bilateral breath sounds are heard. Abdomen is soft, nontender. Examination of lower extremities shows edema trace bilaterally. MUSIC ENGINEER exam grossly intact. LAB: Show sodium 133, potassium 4.6, chloride 95, CO2 is 29, BUN 33, creatinine 1.57, hemoglobin 13.6 g/dL. ASSESSMENT: 1. Acute kidney injury mostly cardiorenal and associated with hypotension. Systolic blood pressure was 95 on multiple occasions yesterday. I will check an ultrasound to rule out underlying obstructive uropathy as well. The patient is maintained on ALEJO inhibitors. I will decrease the dose of the lisinopril and add parameters. The patient is advised to avoid use of any nonsteroidal anti-inflammatory agents. UA is quite benign. 2. Chronic kidney disease. Previous creatinine 1.0 and 1.19 secondary to nephrosclerosis. UA is completely benign. Check ultrasound of the kidneys NKF stage 3A. 3. Acute congestive heart failure exacerbation, mostly systolic. 4. Cardiomyopathy, ejection fraction 30-35%. PLAN: Add parameters for lisinopril. Agree with decreasing dose. Check ultrasound of the kidneys. Repeat labs in a.m. The patient will need to continue with diuresis. We can resume the Lasix tomorrow. We can add p.o. Lasix tomorrow. Thank you for this consultation. We will continue to follow the patient with you during his hospitalization. MMODL / IJN: [id number] /
--- NOTE | 2021-07-18 14:02 | P.PN ---
Subjective HISTORY OF PRESENTING ILLNESS She is a pleasant 75-year-old male with history of diabetes mellitus type 2, hyperlipidemia, hypertension and new cardiomyopathy who presents secondary to increased episodes of shortness of breath over the last 1 month. He states he has noticed increased lower extremity edema, orthopnea, dyspnea on exertion with increased weight gain. This has been fairly progressive over a month and then got to the point that his told him to come to the emergency department. Additionally he has noticed pain in both jaws which is worse with exertion and improved with rest. He states his has felt much better and currently denies any jaw pain. He denies any actual chest pain or pressure, no nausea or diaphoresis. He denies any prior history of CAD. EEG performed shows normal sinus rhythm, Q wave in lead 3 and aVF, normal axis, minimal Q-wave V3 V4, T- wave inversion the [address] depression in V5 V6. Blood work shows white blood cells 6.3 hemoglobin 13.0, sodium 124, bicarb 17, BUN 25, creatinine 1.1, hemoglobin A1c 8.6, troponin 0.4, 0.5, 0.8, proBNP 4800, pro-calcitonin 0.13. 07/18/21 Patient seen and examined. Patient denies any chest pain or shortness of breath. Telemetry reviewed patient had 3 episodes of paroxysmal complete heart block. Plan for cardiac catheterization today, however, cancelled due to elevated creatinine. Patient has been receiving diuretics with Lasix 40 mg IV twice a day. Blood work shows increased creatinine to 1.57. He was also started on lisinopril 20 mg daily and blood pressures have been somewhat borderline. He denies any syncope or lightheadedness. Patient's beta jose raul metoprolol succinate has been held, last dose 07/17/21 1700. PHYSICAL EXAMINATION Vital signs reviewed. CONSTITUTIONAL: No apparent distress. HEENT: Neck Supple. No JVD. No carotid bruit. CHEST EXAMINATION: Lungs are clear to auscultation. No chest wall tenderness is noted on palpation or with deep breathing. HEART EXAMINATION: Regular rate and rhythm. S1, S2 heard. No murmurs, gallops or rub. ABDOMEN: Soft, nontender. Positive bowel sounds. EXTREMITIES: 2+ peripheral pulses, no lower extremity edema and no calf tenderness. NEUROLOGIC EXAMINATION: Patient is awake, alert and oriented x3. ASSESSMENT 1. Acute on chronic systolic heart failure 2. Cardiomyopathy EF 30-35% 3. Non-STEMI, concern of type I mechanism with new symptoms of jaw pain worse with exertion consistent with angina 4. Diabetes mellitus type 2 5. Hyperlipidemia 6. Hypertension 7. Hyponatremia likely related to heart failure 8. 2nd degree AV block. Do not appreciate [place] prolongation and may be type 2 block. PLAN Attempt to optimize heart failure regimen as able however increased Cr and c oncern of borderline BP's. Decrease lisinopril to 10mg daily. Decrease IV Lasix to 40mg daily His symptoms of jaw pain appear consistent with angina with non-STEMI and new cardiomyopathy. Likely cath tomorrow if sCr improves. Patient was on metoprolol succinate 25mg daily, this has been currently held. Continue to hold beta jose raul, Patient may require AICD Further recommendations to follow. Objective - Vital Signs Vital signs: Vital Signs Temp 97.9 F 07/18/21 12:00 Pulse 79 07/18/21 12:00 Resp 18 07/18/21 12:00 BP 115/69 07/18/21 12:00 Pulse Ox 97 07/18/21 12:00 Intake & Output 07/17/21 07/18/21 07/18/21 18:59 06:59 18:59 Intake Total 1201.74 80 Output Total 800 300 400 Balance 401.74 -220 -400 Intake: IV 132.24 80 Heparin Sod,Pork in 0.45% 132.24 80 NaCl 25,000 unit In 0.45 % NaCl 1 250ml.bag @ 11. 023 UNITS/KG/HR 10 mls/hr IV .Q24H [facility] Rx#: [id number] Intake, IV Titration 469.5 Amount Heparin Sod,Pork in 0.45% 219.5 NaCl 25,000 unit In 0.45 % NaCl 1 250ml.bag @ 11. 023 UNITS/KG/HR 10 mls/hr IV .Q24H [facility] Rx#: [id number] Sodium Chloride 0.9% 1, 250 000 ml @ 100 mls/hr IV . Q10H [facility] Rx#:[id number] Oral 600 Output: Urine 800 300 400 - Labs CBC & Chem 7: 07/18/21 09:17 07/18/21 09:17 Labs: Abnormal Lab Results - Last 24 Hours (Table) 07/17/21 07/17/21 07/18/21 Range/Units 16:51 19:51 05:22 RBC (4.30-5.90) m/uL Lymphocytes # (1.0-4.8) k/uL APTT (22.0-30.0) sec Sodium (137-145) mmol/L Chloride (98-107) mmol/L BUN (9-20) mg/dL Creatinine (0.66-1.25) mg/dL Glucose (74-99) mg/dL POC Glucose (mg/dL) 153 H 166 H 136 H (75-99) mg/dL 07/18/21 07/18/21 07/18/21 Range/Units 09:17 09:17 09:17 RBC 4.20 L (4.30-5.90) m/uL Lymphocytes # 0.8 L (1.0-4.8) k/uL APTT 40.0 H (22.0-30.0) sec Sodium 133 L (137-145) mmol/L Chloride 95 L (98-107) mmol/L BUN 33 H (9-20) mg/dL Creatinine 1.57 H (0.66-1.25) mg/dL Glucose 152 H (74-99) mg/dL POC Glucose (mg/dL) (75-99) mg/dL 07/18/21 Range/Units 12:03 RBC (4.30-5.90) m/uL Lymphocytes # (1.0-4.8) k/uL APTT (22.0-30.0) sec Sodium (137-145) mmol/L Chloride (98-107) mmol/L BUN (9-20) mg/dL Creatinine (0.66-1.25) mg/dL Glucose (74-99) mg/dL POC Glucose (mg/dL) 142 H (75-99) mg/dL
[2021-07-18 16:24] LABS: Glucose,Whole Blood 124 mg/dL (75-99)
[2021-07-18] MEDS: HEPARIN SOD,PORK IN 0.45% NACL 25,000 UNIT in 0.45% NACL 1 250ML.BAG IV SCH (18:03)
[2021-07-18 19:27] LABS: Glucose,Whole Blood 124 mg/dL (75-99)
[2021-07-18] MEDS: ATORVASTATIN 40 MG TAB PO SCH (19:34)
[2021-07-19 06:00] LABS: Glucose,Whole Blood 144 mg/dL (75-99)
[2021-07-19] MEDS: FAMOTIDINE 20 MG TAB PO SCH (06:00)
[2021-07-19] MEDS: ASPIRIN 81 MG PO SCH (06:00)
[2021-07-19] MEDS: lisinopriL 10 MG TAB PO SCH (06:00)
[2021-07-19] MEDS: INSULIN ASPART (NovoLOG) 100 UNIT/ML VIAL SQ SCH ×4 (08:14→20:52)
[2021-07-19] MEDS: GLIMEPIRIDE 2 MG TAB PO SCH (08:14)
[2021-07-19] MEDS: FUROSEMIDE 40 MG TAB PO SCH (08:15)
[2021-07-19 08:37] LABS: HCT 37.5 % (39.0-53.0); HGB 12.6 gm/dL (13.0-17.5); MCH 32.8 pg (25.0-35.0); MCHC 33.7 g/dL (31.0-37.0); MCV 97.4 fL (80.0-100.0); Mean Platelet Volume 8.3; Platelet Count 189 k/uL (150-450); RBC 3.85 m/uL (4.30-5.90); RDW 12.6 % (11.5-15.5); WBC 4.7 k/uL (3.8-10.6)
[2021-07-19 08:55] LABS: Calcium 9.7 mg/dL (8.4-10.2); Potassium 4.4 mmol/L (3.5-5.1)
[2021-07-19] MEDS ORDERED: lisinopriL 10 MG TAB PO SCH (09:00)
--- NOTE | 2021-07-19 09:53 | P.PN ---
Subjective This is a pleasant 75 years old male with past medical history of Diabetes Mellitus, Hyperlipidemia, Hypertension Patient presents because of the progressive exertional dyspnea and decreased leg swelling over one month, bilateral leg swelling and bilateral neck pain. However yesterday he started getting orthopnea, he could not lay down and his w talita asked him to come to emergency room. Also patient is complaining of from dry cough and sore throat, mouth is making some clear phlegm. He denies chest pain or abdominal pain. No dizziness. He was complaining of from little diarrhea, he felt almost going to vomit this morning but did not. No urinary complaints. No weakness or numbness He denies smoking, alcohol or illicit drugs Vitals are stable and he is saturating 96% on room air. Labs were reviewed including unremarkable CBC except for mild lymphopenia at 0.7, INR is 1.0. Sodium is 124, carbon dioxide 17, creatinine 1.1, glucose 220 Liver enzymes not elevated. Troponin is high as 0.418, C-reactive protein 2.0. ProBNP is 4880 Coronavirus not detected. EKG showing normal sinus rhythm at 85 with first-degree AV block and incomplete right bundle branch block, no significant ST-T changes. Chest x-ray: Interstitial pulmonary edema with increased cardiomegaly In the emergency room patient was started on IV Lasix 40 mg every 8 hours and cardiology team were consulted. 07/17/2021 Patient breathing is better, he does not complain from jaw pain or neck pain anymore, he is breathing easier, less leg edema. Patient is continued on IV Lasix 40 mg twice daily, also he is on heparin drip His sodium is improved today to 1.7 however his creatinine went up to 1.4. Because of his worsening kidney function we hold his metformin and switch him to Amaryl 2 mg daily, patient informed of his uncontrolled diabetes as his hemoglobin A1c is a 42.6%. Echocardiogram showed ejection fraction of 30-35% with moderate mitral regurgitation, 2018 8 was 55-60% Patient possibly will go for cardiac cath tomorrow 07/18/2021 Patient feels better, his breathing is easier. He has no more jaw pain, leg swelling is significantly improved he has crepitationandonlyminimal. He has some wheezing during examination most likely secondary to his CHF, patient is nonsmoker with no history of COPD. He is hemodynamically stable, he is on room air. Creatinine is trending up 1.1, 1.4, and 1.58 today. However sodium significantly improved up to 133. His Lasix was switched to 40 mg by mouth daily. His glucose is controlled 136 and 142 after he was started on Amaryl today we will keep monitoring, metformin was held for his acute kidney injury. He has slight ejection fraction of 30-35% with moderate MR and he needs cardiac cath however it is on hold now to further evaluation for his kidney injury, most likely secondary to diuresis, nephrology team was consulted, renal ultrasound is pending. 81 mg 07/19/2021 Patient breathing is improved close to normal however he has some residual basal crepitation which is mild. Very minimal leg swelling. No much exertional dyspnea. And his diuretics are switched to oral dose again Lasix 40 mg daily His creatinine improved 1.3 from 1.8 yesterday. Glucose less than 150. After switching his metformin and to Amaryl 2 mg daily. Hemoglobin A1c is 8.6% Plan for him to go for cardiac cath today. Renal ultrasound showing no hydronephrosis. Tenderness on home dose of aspirin 81 mg, oral Lasix and metoprolol Objective - Vital Signs Vital signs: Vital Signs Temp 97.2 F L 07/19/21 08:08 Pulse 79 07/19/21 08:08 Resp 16 07/19/21 08:08 BP 105/58 07/19/21 08:08 Pulse Ox 97 07/19/21 08:08 Intake & Output 07/18/21 07/19/21 07/19/21 18:59 06:59 18:59 Intake Total 234.167 Output Total 700 600 Balance -465.833 -600 Weight 89.3 kg Intake: Intake, IV Titration 234.167 Amount Heparin Sod,Pork in 0.45% 234.167 NaCl 25,000 unit In 0.45 % NaCl 1 250ml.bag @ 11. 023 UNITS/KG/HR 10 mls/hr IV .Q24H [facility] Rx#: [id number] Output: Urine 700 600 Other: # Voids 1 - Exam GENERAL: The patient is alert and oriented x3, not in any acute distress. Well developed, well nourished. HEENT: Pupils are round and equally reacting to light. EOMI. No scleral icterus. No conjunctival pallor. Normocephalic, atraumatic. No pharyngeal erythema. No thyromegaly. CARDIOVASCULAR: S1 and S2 present. No murmurs, rubs, or gallops. -PULMONARY: Chest is clear to auscultation, no wheezing . Bilateral basal crepitation ABDOMEN: Soft, nontender, nondistended, normoactive bowel sounds. No palpable organomegaly. MUSCULOSKELETAL: No joint swelling or deformity. -EXTREMITIES: No cyanosis, clubbing, . Bilateral pitting leg edema. NEUROLOGICAL: Gross neurological examination did not reveal any focal deficits. SKIN: No rashes. No petechiae - Labs CBC & Chem 7: 07/19/21 08:02 07/19/21 08:02 Labs: Abnormal Lab Results - Last 24 Hours (Table) 07/18/21 07/18/21 07/18/21 Range/Units 09:17 09:17 09:17 RBC 4.20 L (4.30-5.90) m/uL Hgb (13.0-17.5) gm/dL Hct (39.0-53.0) % Lymphocytes # 0.8 L (1.0-4.8) k/uL APTT 40.0 H (22.0-30.0) sec Sodium 133 L (137-145) mmol/L Chloride 95 L (98-107) mmol/L BUN 33 H (9-20) mg/dL Creatinine 1.57 H (0.66-1.25) mg/dL Glucose 152 H (74-99) mg/dL POC Glucose (mg/dL) (75-99) mg/dL 07/18/21 07/18/21 07/18/21 Range/Units 12:03 16:22 19:26 RBC (4.30-5.90) m/uL Hgb (13.0-17.5) gm/dL Hct (39.0-53.0) % Lymphocytes # (1.0-4.8) k/uL APTT (22.0-30.0) sec Sodium (137-145) mmol/L Chloride (98-107) mmol/L BUN (9-20) mg/dL Creatinine (0.66-1.25) mg/dL Glucose (74-99) mg/dL POC Glucose (mg/dL) 142 H 124 H 124 H (75-99) mg/dL 07/18/21 07/19/21 07/19/21 Range/Units 22:19 05:59 08:02 RBC (4.30-5.90) m/uL Hgb (13.0-17.5) gm/dL Hct (39.0-53.0) % Lymphocytes # (1.0-4.8) k/uL APTT 46.2 H (22.0-30.0) sec Sodium 134 L (137-145) mmol/L Chloride (98-107) mmol/L BUN 31 H (9-20) mg/dL Creatinine 1.38 H (0.66-1.25) mg/dL Glucose 138 H (74-99) mg/dL POC Glucose (mg/dL) 144 H (75-99) mg/dL 07/19/21 Range/Units 08:02 RBC 3.85 L (4.30-5.90) m/uL Hgb 12.6 L (13.0-17.5) gm/dL Hct 37.5 L (39.0-53.0) % Lymphocytes # (1.0-4.8) k/uL APTT (22.0-30.0) sec Sodium (137-145) mmol/L Chloride (98-107) mmol/L BUN (9-20) mg/dL Creatinine (0.66-1.25) mg/dL Glucose (74-99) mg/dL POC Glucose (mg/dL) (75-99) mg/dL Assessment and Plan Assessment: Acute systolic heart failure, , ischemic cardiomyopathy is suspected with ejection fraction of 30-35% None STEMI Acute kidney injury, suspected secondary to diuresis. Sore throat, improved, coronavirus is negative Hyponatremia Diabetes mellitus, With hyperglycemia upon admission . Hemoglobin A1c is 8.6% Hypertension Hyperlipidemia Plan: this is a pleasant 75 years old male who presents with possible acute CHF and high troponin. Continue with oral Lasix and monitor creatinine and electrolytes Cardiology consult . patient will need an for cardiac cath s Cartilage surfaces patient will need AICD open discharge Consult nephrology consult Continue with fluid restriction 1500 mL per day Hold metformin for worsening creatinine and start Amaryl. Nephrology consult Labs and medication were reviewed.. Continue same treatment. Continue with symptomatic treatment. Resume home medication. Monitor lytes and vitals. DVT and GI prophylaxis. Further recommendations depends on the clinical course of the patient DVT prophylaxis: Subcutaneous heparin GI Prophylaxis: Pepcid PT/OT: Pending Prognosis is guarded
[2021-07-19] MEDS ORDERED: HEPARIN SODIUM 1,000 UN/ML (10ML VL) ONE (10:41)
[2021-07-19] MEDS ORDERED: LIDOCAINE 1% INJ 10MG/ML (20 ML MDV) ONE (10:42)
[2021-07-19] MEDS ORDERED: fentaNYL (PF) 50 MCG/ML 2 ML AMP ONE (10:42)
[2021-07-19] MEDS ORDERED: VERAPAMIL 2.5 MG/ML 2 ML AMP ONE (10:42)
[2021-07-19] MEDS ORDERED: IV FLUID CONTINUATION 700 ML IV ONE (10:50)
[2021-07-19] MEDS ORDERED: LIDOCAINE 1% INJ 10MG/ML (20 ML MDV) SQ ONE (11:24)
[2021-07-19] MEDS ORDERED: fentaNYL (PF) 50 MCG/ML 2 ML AMP IV ONE (11:25)
[2021-07-19] MEDS ORDERED: MIDAZOLAM 2 MG/2 ML VIAL IV ONE (11:25)
[2021-07-19] MEDS ORDERED: VERAPAMIL SYRINGE (5 MG/10 ML) INTRAARTER ONE (11:29)
[2021-07-19] MEDS ORDERED: HEPARIN SODIUM 1,000 UN/ML (10ML VL) IV ONE (11:37)
[2021-07-19] MEDS ORDERED: IOPAMIDOL-370 125ML BTL INJ ONE (11:46)
[2021-07-19 12:07] LABS: Glucose,Whole Blood 124 mg/dL (75-99)
[2021-07-19] MEDS ORDERED: HEPARIN SODIUM 1,000 UN/ML (10ML VL) IV PRN (13:08)
--- NOTE | 2021-07-19 13:34 | P.GSCN ---
History of Present Illness Consult date: 07/19/21 Reason for Consult: Triple-vessel coronary artery disease Requesting physician: Zheng Mathews History of present illness: This is a 75-year-old gentleman who follows on an outpatient basis at the [facility] for primary care. He has a previous medical history of hypertension, hyperlipidemia, djp-qlmglkl-kwhrqzdxl diabetes, never smoker, and family history of heart disease. He remains unvaccinated against covid. He presented to [facility] emergency room July 16 with complaints of dyspnea on exer tion, orthopnea, bilateral lower extremity edema, and jaw pain with exertion. The shortness of breath he admitted had been going on for approximately 1 month, the jaw pain with exertion however was a newer symptom and was relieved at rest. His became concerned and brought him to the emergency room. EKG demonstrated sinus rhythm with a first-degree AV block and occasional PVCs. Chest x-ray demonstrated pulmonary edema consistent with heart failure. BNP was 4880. Troponins were elevated and patient was ruled in for non-STEMI. He was admitted for evaluation and treatment with consultation placed to cardiology. His workup included transthoracic echocardiogram which demonstrated impaired left ventricular systolic function with EF 30-35%, mild aortic stenosis with mean gradient 10 mmHg, aortic valve area 0.8 cm by continuity equation, mild aortic insufficiency, moderate mitral regurgitation, and mild tricuspid regurgitation. Over the next couple of days he was diuresed with plans for heart catheterization. Unfortunately he developed acute kidney injury so heart catheterization was put off until today. He was taken to the [facility] today which demonstrated triple-vessel coronary artery disease with proximal and mid LAD stenosis 95%, circumflex stenosis 95%, and RCA stenosis 100%. Due to these findings consultation was placed to cardiothoracic surgery for surgical cami scularization recommendations. Review of Systems Review of systems was completed and was negative except as noted - Constitutional Reports weight gain - Cardiovascular Cardiovascular Comment(s): Jaw pain with exertion Reports as per HPI, Reports dyspnea on exertion, Reports leg edema, Reports orthopnea, Reports shortness of breath Past Medical History Past Medical History: Coronary Artery Disease (CAD), Diabetes Mellitus, Hyperlipidemia, Hypertension, Myocardial Infarction (SD) History of Any Multi-Drug Resistant Organisms: None Reported Past Surgical History: Hernia Repair Additional Past Surgical History / Comment(s): Right knee surgery CUT OUT CARTILAGE, hernia repair Past Anesthesia/Blood Transfusion Reactions: No Reported Reaction Past Psychological History: No Psychological Hx Reported Smoking Status: Never smoker Past Alcohol Use History: None Reported Past Drug Use History: None Reported - Past Family History Father Additional Family Medical History / Comment(s): AT AGE 84-CANCER OF LARNYX (SMOKER), CARDIAC PROBLEMS Mother Family Medical History: Diabetes Mellitus Additional Family Medical History / Comment(s): AT AGE 83- HAD A PITUITARY TUMOR REMOVED HAD SON CRISIS Sister(s) Family Medical History: Coronary Artery Disease (CAD) Additional Family Medical History / Comment(s): had CABG in her 70s Medications and Allergies Home Medications Medication Instructions Recorded Confirmed Type Aspirin 81 mg PO DAILY #30 chewable 02/06/18 07/16/21 Rx HYDROcodone/APAP 10-325MG [Moro 1 tab PO BID PRN 07/16/21 07/16/21 History 10-325] Simvastatin [Zocor] 20 mg PO DAILY 07/16/21 07/16/21 History lisinopriL [Prinivil] 20 mg PO DAILY 07/16/21 07/16/21 History metFORMIN HCL [Glucophage] 1,000 mg PO BID 07/16/21 07/16/21 History Allergies Allergy/AdvReac Type Severity Reaction Status Date / Time No Known Allergies Allergy Verified 07/16/21 08:31 Surgical - Exam Vital Signs Temp Pulse Resp BP Pulse Ox 97.7 F 97 20 125/75 96 07/16/21 03:03 07/16/21 03:03 07/16/21 03:03 07/16/21 03:03 07/16/21 03:03 CONSTITUTIONAL: Awake and alert, appears comfortable, cooperative, well-deve loped, well-nourished, no pain, no acute distress EYES: Pupils equal, round, reactive to light, normal ocular movement ENT: Moist mucous membranes without oral lesions present NECK: No masses, no bruits, trachea midline RESPIRATORY: Lungs sounds clear to auscultation bilaterally. Respirations even, nonlabored. Currently on room air with oxygen saturation 99%. Strong cough. No chest wall deformities. No clubbing or cyanosis present CARDIOVASCULAR: S1, S2 present. Regular rate and rhythm, sinus rhythm with first-degree AV block on telemetry. Palpable peripheral pulses bilaterally. No edema present. No calf pain or tenderness noted. No significant lower extremity varicosities noted. GASTROINTESTINAL: Abdomen soft, nontender, nondistended without masses or organomegaly noted. There is no rebound or guarding present. Active bowel sounds present 4 quadrants. GENITOURINARY: Deferred INTEGUMENTARY: Skin is warm and dry with evidence of good perfusion. NEUROLOGIC: Cranial nerves II through XII intact, normal coordination, no obvious motor or sensory deficits, speech is normal MUSKULOSKELETAL: Able to move all extremities, strength equal bilaterally, normal posture PSYCHIATRIC: Alert and oriented to person place and time, appropriate affect, intact judgment and insight Results - Labs 07/19/21 08:02 07/19/21 08:02 Abnormal Lab Results - Last 24 Hours (Table) 07/18/21 07/18/21 07/18/21 Range/Units 16:22 19:26 22:19 RBC (4.30-5.90) m/uL Hgb (13.0-17.5) gm/dL Hct (39.0-53.0) % APTT 46.2 H (22.0-30.0) sec Sodium (137-145) mmol/L BUN (9-20) mg/dL Creatinine (0.66-1.25) mg/dL Glucose (74-99) mg/dL POC Glucose (mg/dL) 124 H 124 H (75-99) mg/dL 07/19/21 07/19/21 07/19/21 Range/Units 05:59 08:02 08:02 RBC 3.85 L (4.30-5.90) m/uL Hgb 12.6 L (13.0-17.5) gm/dL Hct 37.5 L (39.0-53.0) % APTT (22.0-30.0) sec Sodium 134 L (137-145) mmol/L BUN 31 H (9-20) mg/dL Creatinine 1.38 H (0.66-1.25) mg/dL Glucose 138 H (74-99) mg/dL POC Glucose (mg/dL) 144 H (75-99) mg/dL 07/19/21 Range/Units 12:06 RBC (4.30-5.90) m/uL Hgb (13.0-17.5) gm/dL Hct (39.0-53.0) % APTT (22.0-30.0) sec Sodium (137-145) mmol/L BUN (9-20) mg/dL Creatinine (0.66-1.25) mg/dL Glucose (74-99) mg/dL POC Glucose (mg/dL) 124 H (75-99) mg/dL Microbiology - Last 24 Hours (Table) 07/16/21 07:48 Group A Strep Throat Culture - Final Throat Diabetes panel 07/19/21 Range/Units 08:02 Sodium 134 L (137-145) mmol/L Potassium 4.4 (3.5-5.1) mmol/L Chloride 98 (98-107) mmol/L Carbon Dioxide 28 (22-30) mmol/L BUN 31 H (9-20) mg/dL Creatinine 1.38 H (0.66-1.25) mg/dL Glucose 138 H (74-99) mg/dL Calcium 9.7 (8.4-10.2) mg/dL Calcium panel 07/19/21 Range/Units 08:02 Calcium 9.7 (8.4-10.2) mg/dL Pituitary panel 07/19/21 Range/Units 08:02 Sodium 134 L (137-145) mmol/L Potassium 4.4 (3.5-5.1) mmol/L Chloride 98 (98-107) mmol/L Carbon Dioxide 28 (22-30) mmol/L BUN 31 H (9-20) mg/dL Creatinine 1.38 H (0.66-1.25) mg/dL Glucose 138 H (74-99) mg/dL Calcium 9.7 (8.4-10.2) mg/dL Adrenal panel 07/19/21 Range/Units 08:02 Sodium 134 L (137-145) mmol/L Potassium 4.4 (3.5-5.1) mmol/L Chloride 98 (98-107) mmol/L Carbon Dioxide 28 (22-30) mmol/L BUN 31 H (9-20) mg/dL Creatinine 1.38 H (0.66-1.25) mg/dL Glucose 138 H (74-99) mg/dL Calcium 9.7 (8.4-10.2) mg/dL - Imaging Chest x-ray: report reviewed, image reviewed EKG: image reviewed Additional studies: Heart catheterization films reviewed Assessment and Plan Assessment: 1. Triple-vessel coronary artery disease, non-STEMI and admission 2. Acute systolic heart failure present on admission, EF 30-35% 3. First-degree heart block, paroxysmal episodes of second-degree and complete heart block this admission 4. Acute kidney injury 5. Elevated CRP, pro-calcitonin on admission 6. History of hypertension 7. History of hyperlipidemia, treated, cholesterol 129, LDL 71 8. Bmc-dxjalag-seokojnus diabetes, hemoglobin A1c 8.6% 9. Never smoker 10. Family history of heart disease 11. Remains unvaccinated against covid Plan: The patient was seen and examined at the bedside on the cardiac stepdown unit. Chart/diagnostics were reviewed. Will discuss the case in detail with Dr. Bingham. The usual perioperative course of coronary artery bypass surgery was discussed in detail with the patient, risks and benefits were reviewed, all questions were answered. The patient does consent to surgery. Preoperative testing was initiated. Will calculate STS risk score once all testing has been completed. Will complete 5 m walk test. Recommend continuing aspirin, statin. Beta jose raul currently on hold due to heart block. Pulmonology consulted for clearance. Medical management of other comorbidities per primary care service, cardiology, nephrology. More recommendations to follow. Thank you Dr. Mathews for this consult. We look forward to working with you in the care of your patient. Time with Patient: Greater than 30
[2021-07-19 13:56] LABS: Partial Thromboplastin Time 29.4 sec (22.0-30.0); Prothrombin Time 10.7 sec (9.0-12.0)
--- NOTE | 2021-07-19 14:28 | US ---
EXAMINATION TYPE: US carotid duplex BILAT DATE OF EXAM: 07/19/2021 COMPARISON: CTA neck February 05, 2022 CLINICAL HISTORY: preop cardiac surgery. Preop EXAM MEASUREMENTS: RIGHT: Peak Systolic Velocity (PSV) cm/sec ----- Right CCA: 51.4 ----- Right ICA: 85.3 ----- Right ECA: 93.1 ICA/CCA ratio: 1.7 RIGHT: End Diastole cm/sec ----- Right CCA: 14.7 ----- Right ICA: 36.1 ----- Right ECA: 0.0 LEFT: Peak Systolic Velocity (PSV) cm/sec ----- Left CCA: 37.4 ----- Left ICA: 83.4 ----- Left ECA: 69.1 ICA/CCA ratio: 2.2 LEFT: End Diastole cm/sec ----- Left CCA: 10.4 ----- Left ICA: 30.7 ----- Left ECA: 0.0 VERTEBRALS (direction of flow): Right Vertebral: Antegrade Left Vertebral: Antegrade Rhythm: Normal Plaque visualized in bilateral carotids. No elevated velocities. Wall thickening. . Grayscale images show moderate to severe peripheral plaque right carotid bulb and mild to moderate pe ripheral plaque left carotid bulb but velocity measurements in the internal carotid arteries remain w ithin normal limits bilaterally. IMPRESSION: Right greater than left atherosclerotic changes without hemodynamically significant sten osis seen in either internal carotid artery Criteria for Assigning % of Stenosis / Diameter reduction (Estimation based on the indirect measurements of the internal carotid artery velocities (ICA PSV). 1. Normal (no stenosis)=ICA PSV < 125 cm/s: ratio < 2.0: ICA EDV<40 cm/s. 2. Less than 50% stenosis=ICA PSV < 125 cm/s: ratio < 2.0: ICA EDV<40 cm/s. 3. 50 to 69% stenosis=ICA PSV of 125 to 230 cm/s: ration 2.0 ? 4.0: ICA EDV 40-100 cm/s. 4. Greater than 70% stenosis to near occlusion= ICA PSV > 230 cm/s: ratio > 4.0: ICA EDV > 100 cm/s. 5. Near occlusion= ICA PSV velocities may be low or undetectable: variable ratio and ICA EDV. 6. Total occlusion=unable to detect flow.
--- NOTE | 2021-07-19 14:55 | P.CNPUL ---
History of Present Illness Consult date: 07/19/21 Reason for consult: other (Preoperative pulmonary evaluation) History of present illness: 75-year-old male patient, lifetime nonsmoker, who is currently being evaluated for cardiac surgery. The patient has comorbid conditions and risk factors i ncluding dst-xwnvziw-uwuwdcovm diabetes mellitus and hypertension hyperlipidemia. He also has a positive family history for coronary artery disease. He presented to the hospital because of worsening shortness of breath, exertional dyspnea and orthopnea and lower extremity edema at the same time the patient was having jaw pain with exertion. At time of admission, the patient was found to be in sinus rhythm with a first-degree AV block and occasional PVCs. Chest x-ray showed CHF and pulmonary edema. ProBNP level was 4480. The patient ruled in for acute non-ST segment elevation myocardial infarction. He underwent further workup including an echocardiac Tino that showed an ejection fraction of 30-35%. Transthoracic echocardiogram also showed moderate aortic stenosis, aortic valve area of 0.8 cm with mild insufficiency, moderate amount of mitral regurgitation and mild tricuspid regurgitation. The patient underwent a cardiac catheterization the patient was found to have triple-vessel disease including disease of the proximal and mid LAD in the order of 95%, circumflex 95%, RCA 100%. CV surgery consultation was obtained for possible bypass surgery. The patient currently is free of any chest pain. Denies having a specific complaints. Still on 2 L of oxygen by nasal cannula. His CHF is being optimized for now and the patient is currently on Lasix 40 mg by mouth on a kaylynn ly basis. The patient remains on IV heparin. History of any angina. No jaw pain. No significant cough sputum production chest vessel wheezing. Most of COPD or asthma. No previous history of DVT or pulmonary embolism. No 70 pulmonary fibrosis. The patient has been essentially active and he was experiencing exertional dyspnea related to his underlying CHF and CAD. Does not utilize home O2. Does not utilize any form of respiratory medications or inhalers. No history of any obstructive sleep apnea. Review of Systems Constitutional: Denies chills, Denies fever Eyes: denies as per HPI, denies blurred vision, denies bulging eye, denies decreased vision, denies diplopia, denies discharge, denies dry eye, denies irritation, denies itching, denies pain, denies photophobia, denies loss of peripheral vision, denies loss of vision, denies tunnel vision/blind spots Ears: deny: decreased hearing, ear discharge, earache, tinnitus Ears, nose, mouth and throat: Reports as per HPI Breasts: absent: as per HPI, gynecomastia Cardiovascular: Reports decreased exercise tolerance, Reports dyspnea on exertion Respiratory: Reports dyspnea Gastrointestinal: Reports as per HPI Genitourinary: Reports as per HPI Musculoskeletal: Reports as per HPI Musculoskeletal: absent: ankle pain, ankle stiffness, ankle swelling, as per HPI, elbow pain, elbow stiffness, elbow swelling, foot pain, foot stiffness, foot swelling, hand pain, hand stiffness, hand swelling, hip pain, hip stiffness, hip swelling, knee pain, knee stiffness, knee swelling, shoulder pain, shoulder stiffness, shoulder swelling, wrist pain, wrist stiffness, wrist swelling Integumentary: Reports as per HPI Psychiatric: Reports as per HPI Endocrine: Reports as per HPI Hematologic/Lymphatic: Reports as per HPI Allergic/Immunologic: Reports as per HPI Past Medical History Past Medical History: Coronary Artery Disease (CAD), Diabetes Mellitus, Hyperlipidemia, Hypertension, Myocardial Infarction ([place]) History of Any Multi-Drug Resistant Organisms: None Reported Past Surgical History: Hernia Repair Additional Past Surgical History / Comment(s): Right knee surgery CUT OUT CARTILAGE, hernia repair Past Anesthesia/Blood Transfusion Reactions: No Reported Reaction Past Psychological History: No Psychological Hx Reported Smoking Status: Never smoker Past Alcohol Use History: None Reported Past Drug Use History: None Reported - Past Family History Father Additional Family Medical History / Comment(s): AT AGE 84-CANCER OF LARNYX (SMOKER), CARDIAC PROBLEMS Mother Family Medical History: Diabetes Mellitus Additional Family Medical History / Comment(s): AT AGE 83- HAD A PITUITARY TUMOR REMOVED HAD SON CRISIS Sister(s) Family Medical History: Coronary Artery Disease (CAD) Additional Family Medical History / Comment(s): had CABG in her 70s Medications and Allergies Home Medications Medication Instructions Recorded Confirmed Type Aspirin 81 mg PO DAILY #30 chewable 02/06/18 07/16/21 Rx HYDROcodone/APAP 10-325MG [[place] 1 tab PO BID PRN 07/16/21 07/16/21 History 10-325] Simvastatin [Zocor] 20 mg PO DAILY 07/16/21 07/16/21 History lisinopriL [Prinivil] 20 mg PO DAILY 07/16/21 07/16/21 History metFORMIN HCL [Glucophage] 1,000 mg PO BID 07/16/21 07/16/21 History Allergies Allergy/AdvReac Type Severity Reaction Status Date / Time No Known Allergies Allergy Verified 07/16/21 08:31 Physical Exam Vitals: Vital Signs Temp Pulse Pulse Resp BP Pulse Ox 07/19/21 13:45 71 16 107/63 99 07/19/21 13:15 69 16 106/72 98 07/19/21 12:45 73 16 111/73 100 07/19/21 12:30 72 16 115/76 99 07/19/21 12:15 76 16 102/65 99 07/19/21 12:00 97.6 F 72 16 107/67 98 07/19/21 08:08 97.2 F L 79 16 105/58 97 07/19/21 05:45 97.6 F 74 16 113/72 98 07/19/21 01:59 18 07/18/21 23:52 92 18 105/88 98 07/18/21 19:36 97.6 F 73 16 108/73 97 07/18/21 16:00 97.6 F 66 18 110/63 98 Intake and Output 07/18/21 07/19/21 07/19/21 22:59 06:59 14:59 Intake Total 145.901 2634.833 Output Total 550 350 Balance -315.833 -350 1075.833 Intake: IV 200 Intake, IV Titration 234.167 15.833 Amount Heparin Sod,Pork in 0.45% 234.167 15.833 NaCl 25,000 unit In 0.45 % NaCl 1 250ml.bag @ 11. 023 UNITS/KG/HR 10 mls/hr IV .Q24H [facility] Rx#: [id number] Oral 860 Output: Urine 550 350 Other: # Voids 1 Weight 90.718 kg 89.3 kg CONSTITUTIONAL: Awake and alert, appears comfortable, cooperative, well- developed, well-nourished, no pain, no acute distress, breathing is nonlabored and the patient is currently on 2 L nasal cannula EYES: Pupils equal, round, reactive to light, normal ocular movement ENT: Moist mucous membranes without oral lesions present NECK: No masses, no bruits, trachea midline RESPIRATORY: Lungs sounds clear to auscultation bilaterally. Respirations even, nonlabored. Currently on room air with oxygen saturation 99%. Strong cough. No chest wall deformities. No clubbing or cyanosis present. Overall breath sounds are diminished bilaterally. CARDIOVASCULAR: S1, S2 present. Regular rate and rhythm, sinus rhythm with first-degree AV block on telemetry. Palpable peripheral pulses bilaterally. No edema present. No calf pain or tenderness noted. No significant lower extremity varicosities noted. There is a mild systolic ejection murmur grade 2/6 heard over the left lateral sternal border and the precordium and apex. No significant radiation of the murmur was identified. GASTROINTESTINAL: Abdomen soft, nontender, nondistended without masses or organomegaly noted. There is no rebound or guarding present. Active bowel sounds present 4 quadrants. GENITOURINARY: Deferred INTEGUMENTARY: Skin is warm and dry with evidence of good perfusion. NEUROLOGIC: Cranial nerves II through XII intact, normal coordination, no obvious motor or sensory deficits, speech is normal MUSKULOSKELETAL: Able to move all extremities, strength equal bilaterally, normal posture PSYCHIATRIC: Alert and oriented to person place and time, appropriate affect, intact judgment and insight Results - Laboratory Findings CBC and BMP: 07/19/21 08:02 07/19/21 08:02 PT/INR, D-dimer PT 10.7 sec (9.0-12.0) 07/19/21 13:13 INR 1.0 (<1.2) 07/19/21 13:13 Abnormal lab findings: Abnormal Labs 07/16/21 07/16/21 07/16/21 03:26 03:26 03:26 RBC 4.02 L Hgb Hct Lymphocytes # 0.7 L APTT Sodium 124 L Chloride 92 L Carbon Dioxide 17 L BUN 25 H Creatinine Glucose 220 H POC Glucose (mg/dL) Hemoglobin A1c Lactate Dehydrogenase 814 H Troponin I 0.418 H* C-Reactive Protein 2.0 H Procalcitonin Urine Ketones 07/16/21 07/16/21 07/16/21 07:48 07:54 07:54 RBC Hgb Hct Lymphocytes # APTT Sodium 127 L Chloride 93 L Carbon Dioxide BUN 23 H Creatinine Glucose 185 H POC Glucose (mg/dL) Hemoglobin A1c Lactate Dehydrogenase Troponin I 0.539 H* C-Reactive Protein Procalcitonin Urine Ketones 1+ H 07/16/21 07/16/21 07/16/21 07:54 07:55 11:05 RBC Hgb Hct Lymphocytes # APTT Sodium Chloride Carbon Dioxide BUN Creatinine Glucose POC Glucose (mg/dL) Hemoglobin A1c 8.6 H Lactate Dehydrogenase Troponin I 0.839 H* C-Reactive Protein Procalcitonin 0.13 H Urine Ketones 07/16/21 07/16/21 07/16/21 11:44 17:02 18:00 RBC 4.17 L Hgb Hct Lymphocytes # 0.6 L APTT Sodium Chloride Carbon Dioxide BUN Creatinine Glucose POC Glucose (mg/dL) 171 H 159 H Hemoglobin A1c Lactate Dehydrogenase Troponin I C-Reactive Protein Procalcitonin Urine Ketones 07/16/21 07/16/21 07/17/21 18:00 20:16 01:07 RBC Hgb Hct Lymphocytes # APTT 65.6 H Sodium Chloride Carbon Dioxide BUN Creatinine Glucose POC Glucose (mg/dL) 150 H Hemoglobin A1c Lactate Dehydrogenase Troponin I 1.030 H* C-Reactive Protein Procalcitonin Urine Ketones 07/17/21 07/17/21 07/17/21 06:29 10:19 10:19 RBC 4.06 L Hgb Hct Lymphocytes # 0.8 L APTT Sodium 127 L Chloride 91 L Carbon Dioxide BUN 31 H Creatinine 1.42 H Glucose 130 H POC Glucose (mg/dL) 149 H Hemoglobin A1c Lactate Dehydrogenase Troponin I C-Reactive Protein Procalcitonin Urine Ketones 07/17/21 07/17/21 07/17/21 12:01 16:51 19:51 RBC Hgb Hct Lymphocytes # APTT Sodium Chloride Carbon Dioxide BUN Creatinine Glucose POC Glucose (mg/dL) 130 H 153 H 166 H Hemoglobin A1c Lactate Dehydrogenase Troponin I C-Reactive Protein Procalcitonin Urine Ketones 07/18/21 07/18/21 07/18/21 05:22 09:17 09:17 RBC 4.20 L Hgb Hct Lymphocytes # 0.8 L APTT Sodium 133 L Chloride 95 L Carbon Dioxide BUN 33 H Creatinine 1.57 H Glucose 152 H POC Glucose (mg/dL) 136 H Hemoglobin A1c Lactate Dehydrogenase Troponin I C-Reactive Protein Procalcitonin Urine Ketones 07/18/21 07/18/21 07/18/21 09:17 12:03 16:22 RBC Hgb Hct Lymphocytes # APTT 40.0 H Sodium Chloride Carbon Dioxide BUN Creatinine Glucose POC Glucose (mg/dL) 142 H 124 H Hemoglobin A1c Lactate Dehydrogenase Troponin I C-Reactive Protein Procalcitonin Urine Ketones 07/18/21 07/18/21 07/19/21 19:26 22:19 05:59 RBC Hgb Hct Lymphocytes # APTT 46.2 H Sodium Chloride Carbon Dioxide BUN Creatinine Glucose POC Glucose (mg/dL) 124 H 144 H Hemoglobin A1c Lactate Dehydrogenase Troponin I C-Reactive Protein Procalcitonin Urine Ketones 07/19/21 07/19/21 07/19/21 08:02 08:02 12:06 RBC 3.85 L Hgb 12.6 L Hct 37.5 L Lymphocytes # APTT Sodium 134 L Chloride Carbon Dioxide BUN 31 H Creatinine 1.38 H Glucose 138 H POC Glucose (mg/dL) 124 H Hemoglobin A1c Lactate Dehydrogenase Troponin I C-Reactive Protein Procalcitonin Urine Ketones 07/19/21 13:13 RBC Hgb Hct Lymphocytes # APTT Sodium Chloride Carbon Dioxide BUN Creatinine Glucose POC Glucose (mg/dL) Hemoglobin A1c Lactate Dehydrogenase Troponin I 0.429 H* C-Reactive Protein Procalcitonin Urine Ketones - Diagnostic Findings Chest x-ray: image reviewed Assessment and Plan Plan: 1 acute non-ST segment elevation myocardial infarction 2 multivessel coronary artery disease, please refer to the cardiac catheterization report 3 acute systolic congestion heart failure with an ejection fraction of 3035% and the patient is currently in pulmonary edema and his CHF is being optimized 4 acute hypoxic respiratory failure secondary to pulmonary edema currently on 2 L of oxygen by nasal cannula. Underlying chronic lung disease doubtful 5 hypertension 6 hyperlipidemia LDL level of 71 7 diabetes mellitus with an HbA1c level of 8.6% 8 acute kidney injury due to cardiorenal problems. Patient's creatinine maxed at 1.5 currently down to 1.38 and the patient is currently on oral Lasix Plan Overall pulmonary status is stable Optimize CHF Perform bedside spirometry with understanding that the patient may give suboptimal numbers due to his underlying pulmonary edema. Chest x-ray was reviewed. No pulmonary contraindication for surgery. Will be glad to follow-up this patient postop and manage the ventilator and attempt for any pulmonary issues or complications. Complete the workup including carotid artery Dopplers and vein mapping involving the lower extremities Continue aspirin and statins and beta blockers for now We'll continue to follow.
[2021-07-19] MEDS: HEPARIN SOD,PORK IN 0.45% NACL 25,000 UNIT in 0.45% NACL 1 250ML.BAG IV SCH (16:29)
[2021-07-19 16:34] LABS: Glucose,Whole Blood 129 mg/dL (75-99)
--- NOTE | 2021-07-19 17:12 | P.CARDCATH ---
Description of Procedure: PROCEDURES PERFORMED: Left heart catheterization, bilateral coronary angiography INDICATION: Non-STEMI HISTORY: Patient is a pleasant 75-year-old male with history of diabetes mellitus type 2, hyperlipidemia, hypertension and new cardiomyopathy who has been having increased VALDERRAMA and some jaw pain worse with exertion for the last few months which has been worsening. He therefore presented to ER and found to have NSTEMI with cardiomyopathy. He was diuresed however had CHAPARRO. CONSENT:I have discussed the risks, benefits and alternative therapies for the above-mentioned procedure and for both sedation/analgesia as well as necessary blood product administration, if indicated, as they pertain to this patient. The patient has indicated understanding and acceptance of the risks and procedures discussed. PROCEDURE: After the risks, benefits and alternatives of the above mentioned procedure explained in detail with the patient, informed consent was obtained. Patient was taken to the catheterization lab and prepped and draped in usual fashion. 1% lidocaine was used to anesthetize the right radial artery. A 6- Chinese sheath was placed in the right radial artery using modified Seldinger technique. Left coronary angiography was performed with a 5-Chinese JL 4.0 catheter and right coronary angiography was performed with a 5-Chinese JR5 catheter in various views. A 5-Chinese FR5 catheter was inserted into the left ventricle and pressure measurements were obtained. The right radial sheath was removed and a TR band was placed with hemostasis achieved. The patient tolerated the procedure well. Patient was transported back to the post catheterization holding area in stable condition. Conscious Sedation: Patient was monitored under the direct supervision of vision of myself for conscious sedation using Versed and fentanyl for a total duration of 18 minutes HEMODYNAMICS: Ao: 132/83 LV: 137/12, LVEDP 34mmHg SELECTIVE CORONARY ARTERIOGRAPHY: LEFT MAIN: The left main is a large caliber vessel which bifurcates into the LAD and circumflex. There is no significant stenosis. LEFT ANTERIOR DESCENDING CORONARY ARTERY: LAD is a large caliber vessel which wraps around to the apex. There is a long proximal 50% LAD stenosis and more focal 95% stenosis with VON 2 flow. There is a second 99% stenosis of the mid LAD which appears more hazy plaque past a small to moderate caliber diagonal 1 branch. Otherwise the distal and apical LAD have mild luminal irregularities. LEFT CIRCUMFLEX CORONARY ARTERY: Left circumflex is a moderate to large caliber vessel which gives off the PDA and is the dominant vessel. OM1 and OM2 are small caliber with mild 30-40% stenosis. OM3 is a moderate to large caliber vessel with ostial 30% stenosis and a more focal mid OM3 95% stenosis. Just after OM3, there is a 99% mid circumflex stenosis which feeds the left PDA and left PLV. Otherwise there is mild disease of the PDA. RIGHT CORONARY ARTERY: The right coronary artery is a small caliber vessel which gives off an acute marginal branch and is a non dominant vessel. There is a proximal 100%stenosis. FINAL IMPRESSION: 1. Multivessel CAD as described above with proximal 95% LAD, mid 99% LAD, 95% OM3, 99% mid dominant circumflex stenosis. 2. Elevated left sided filling pressures PLAN: 1. Aggressive risk factor modification per most recent ACC/AHA guidelines. 2. CABG evaluation.
[2021-07-19 20:17] LABS: Glucose,Whole Blood 162 mg/dL (75-99)
[2021-07-19] MEDS: ATORVASTATIN 40 MG TAB PO SCH (20:52)
--- NOTE | 2021-07-19 21:01 | XR ---
EXAMINATION TYPE: XR chest 2V DATE OF EXAM: 07/19/2021 COMPARISON: Chest x-ray 3 days ago. HISTORY: Preoperative CABG. TECHNIQUE: Frontal and lateral views of the chest are obtained. FINDINGS: There is persistent cardiomegaly with central vascular congestion. No new focal airspace o pacity, pleural effusion, or pneumothorax seen bilaterally. The osseous structures are intact. IMPRESSION: Cardiomegaly with central vascular congestion redemonstrated. No significant change from 3 days earlier.
[2021-07-19 23:19] LABS: Hepatitis A Antibody IgM Nonreactive (Nonreactive); Hepatitis B Core IgM Nonreactive (Nonreactive); Hepatitis B Surface Antigen Nonreactive (Nonreactive); Hepatitis C IgG Antibody Nonreactive (Nonreactive)
[2021-07-20 03:28] LABS: Basophils # (A) 0.1 k/uL (0-0.2); Basophils % (A) 1 %; Eosinophils # (A) 0.1 k/uL (0-0.7); Eosinophils % (A) 3 %; HCT 39.3 % (39.0-53.0); HGB 12.7 gm/dL (13.0-17.5); Lymphocytes % (A) 22 %; MCH 32.7 pg (25.0-35.0); MCHC 32.4 g/dL (31.0-37.0); MCV 101.1 fL (80.0-100.0); Macrocytosis Slight; Mean Platelet Volume 8.3; Monocytes # (A) 0.5 k/uL (0-1.0); Monocytes % (A) 11 %; Neutrophils # (A) 2.8 k/uL (1.3-7.7); Neutrophils % (A) 61 %; Partial Thromboplastin Time 33.3 sec (22.0-30.0); Platelet Count 188 k/uL (150-450); RBC 3.89 m/uL (4.30-5.90); RDW 13.3 % (11.5-15.5); WBC 4.6 k/uL (3.8-10.6)
[2021-07-20 03:33] LABS: Calcium 9.2 mg/dL (8.4-10.2); Potassium 3.9 mmol/L (3.5-5.1)
[2021-07-20 05:57] LABS: Glucose,Whole Blood 132 mg/dL (75-99)
[2021-07-20] MEDS: INSULIN ASPART (NovoLOG) 100 UNIT/ML VIAL SQ SCH ×4 (06:08→20:25)
[2021-07-20] MEDS: GLIMEPIRIDE 2 MG TAB PO SCH (06:08)
[2021-07-20] MEDS ORDERED: SODIUM CHLORIDE 0.9% 500 ML 500 ML IV ONE (08:10)
[2021-07-20] MEDS ORDERED: PROPOFOL 10 MG/ML 20 ML VIAL IV ONE (08:36)
[2021-07-20] MEDS ORDERED: BENZOCAINE SPRAY 1 CAN MUCOUS MEM ONE (08:39)
--- NOTE | 2021-07-20 09:16 | P.TEE ---
Description of Procedure(s): Procedure performed: Transesophageal Echocardiogram with color flow doppler, pulsed wave doppler and continuous wave doppler, moderate conscious sedation Moderate conscious sedation: Moderate conscious sedation was supplied by anesthesia Complications: none Indications: Moderate mitral regurgitation, coronary artery disease History: Patient is a pleasant 75-year-old male with history of diabetes mellitus type 2, hyperlipidemia, hypertension and new cardiomyopathy who has been having increased VALDERRAMA and some jaw pain worse with exertion for the last few months which has been worsening. He therefore presented to ER and found to have NSTEMI with cardiomyopathy. Heart cath showed triple vessel disease and DELVIS was recommended to further evaluate degree of MR. PROCEDURE: After the risks, benefits and alternatives of the above mentioned procedure was explained in detail with the patient, informed consent was obtained. Patient was brought to the lab in a fasting state. Patient was given IV Versed and Fentanyl for sedation. The throat was sprayed with Hurricane to anesthetize the throat. A lubricated Omni probe was then introduced into the esophagus and stomach and multiple views were obtained. 2D echo with color flow doppler, pulsed wave doppler and continuous wave doppler was utilized. Agitated saline bubbles were injected to assess for any intra-atrial shunt. The probe was then removed. Patient tolerated the procedure well. Patient was transferred to the post procedure area in stable and satisfactory condition. FINDINGS: 1. The aortic valve is tricuspid and moderately sclerotic with decreased leaflet excursion. LUZMA by planimetry is 1.3 cm2 consistent with moderate aortic stenosis. Decreased excursion may be related to low flow state and may consider low dose dobutamine stress echo if clinically indicated. 2. The mitral valve appears be normal with mild central mitral regurgitation. 3. Tricuspid valve appears to be normal. 4. The interatrial septum is intact. 5. Left atrial appendage is free of clot. 6. Left ventricular EF is 30-35% with global hypokinesis.
--- NOTE | 2021-07-20 09:55 | P.PN ---
Subjective Progress Note Date: 07/20/21 Principal diagnosis: Triple-vessel coronary artery disease, non-STEMI and admission, acute systolic heart failure present on admission, EF 30-35%, first-degree heart block, paroxys mal episodes of second-degree and complete heart block this admission, acute kidney injury, elevated CRP, pro-calcitonin on admission. Previous medical history of hypertension, hyperlipidemia, pdn-zqhivne-yewfvqmnt diabetes, never smoker, family history of heart disease, remains unvaccinated against covid The patient's currently sitting up in bed in no acute distress on the cardiac stepdown unit. Denies any chest pain or shortness of breath. In fact states he feels better than when he came in. He was seen and examined yesterday by Dr. Bingham with recommendations for bypass surgery, timing to be determined. The patient had transesophageal echocardiogram this morning for further investig ation of mitral valve regurgitation. No other new concerns. Objective - Vital Signs Vital signs: Vital Signs Temp 98.4 F 07/20/21 04:00 Pulse 82 07/20/21 08:45 Resp 16 07/20/21 08:45 BP 112/64 07/20/21 08:45 Pulse Ox 90 L 07/20/21 08:45 Intake & Output 07/19/21 07/20/21 07/20/21 18:59 06:59 18:59 Intake Total 1447.833 81.667 150 Output Total 200 Balance 1447.833 -118.333 150 Weight 90.8 kg Intake: IV 200 150 Intake, IV Titration 15.833 81.667 Amount Heparin Sod,Pork in 0.45% 15.833 NaCl 25,000 unit In 0.45 % NaCl 1 250ml.bag @ 11. 023 UNITS/KG/HR 10 mls/hr IV .Q24H [facility] Rx#: [id number] Heparin Sod,Pork in 0.45% 81.667 NaCl 25,000 unit In 0.45 % NaCl 1 250ml.bag @ 11. 198 UNITS/KG/HR 10 mls/hr IV .Q24H [facility] Rx#: [id number] Oral 1232 Output: Urine 200 - Exam CONSTITUTIONAL: Appears comfortable, cooperative, no acute distress RESPIRATORY: Lungs sounds diminished bilaterally. Respirations even, nonlabor ed. Currently on 2 L nasal cannula with oxygen saturation 97%. Able to achieve 2000 mL on incentive spirometry. Strong productive cough. CARDIOVASCULAR: S1, S2 present. Regular rate and rhythm, sinus rhythm with first-degree AV block on telemetry. Palpable peripheral pulses bilaterally. No edema present. No calf pain or tenderness noted. GASTROINTESTINAL: Abdomen soft, nontender, nondistended. Active bowel sounds present 4 quadrants. Tolerating diet GENITOURINARY: Continues to void INTEGUMENTARY: Skin is warm and dry with evidence of good perfusion NEUROLOGIC: Cranial nerves II through XII intact MUSKULOSKELETAL: Able to move all extremities, strength equal bilaterally, gait normal PSYCHIATRIC: Alert and oriented to person place and time, appropriate affect, intact judgment and insight - Allied health notes Allied health notes reviewed: nursing - Labs CBC & Chem 7: 07/20/21 02:51 07/20/21 02:51 Labs: Abnormal Lab Results - Last 24 Hours (Table) 07/19/21 07/19/21 07/19/21 Range/Units 12:06 13:13 16:32 RBC (4.30-5.90) m/uL Hgb (13.0-17.5) gm/dL MCV (80.0-100.0) fL APTT (22.0-30.0) sec Sodium (137-145) mmol/L Chloride (98-107) mmol/L BUN (9-20) mg/dL Creatinine (0.66-1.25) mg/dL Glucose (74-99) mg/dL POC Glucose (mg/dL) 124 H 129 H (75-99) mg/dL Troponin I 0.429 H* (0.000-0.034) ng/mL 07/19/21 07/20/21 07/20/21 Range/Units 20:16 02:51 02:51 RBC 3.89 L (4.30-5.90) m/uL Hgb 12.7 L (13.0-17.5) gm/dL MCV 101.1 H (80.0-100.0) fL APTT (22.0-30.0) sec Sodium 135 L (137-145) mmol/L Chloride 97 L (98-107) mmol/L BUN 28 H (9-20) mg/dL Creatinine 1.54 H (0.66-1.25) mg/dL Glucose 121 H (74-99) mg/dL POC Glucose (mg/dL) 162 H (75-99) mg/dL Troponin I (0.000-0.034) ng/mL 07/20/21 07/20/21 Range/Units 02:51 05:55 RBC (4.30-5.90) m/uL Hgb (13.0-17.5) gm/dL MCV (80.0-100.0) fL APTT 33.3 H (22.0-30.0) sec Sodium (137-145) mmol/L Chloride (98-107) mmol/L BUN (9-20) mg/dL Creatinine (0.66-1.25) mg/dL Glucose (74-99) mg/dL POC Glucose (mg/dL) 132 H (75-99) mg/dL Troponin I (0.000-0.034) ng/mL Microbiology - Last 24 Hours (Table) 07/19/21 17:10 Nasal Screen MRSA/MSSA - Preliminary Nasopharyngeal Swab 07/16/21 07:48 Group A Strep Throat Culture - Final Throat - Imaging and Cardiology Chest x-ray: report reviewed, image reviewed Assessment and Plan Assessment: 1. Triple-vessel coronary artery disease, non-STEMI and admission 2. Acute systolic heart failure present on admission, EF 30-35% 3. First-degree heart block, paroxysmal episodes of second-degree and complete heart block this admission 4. Acute kidney injury 5. Elevated CRP, pro-calcitonin on admission 6. History of hypertension 7. History of hyperlipidemia, treated, cholesterol 129, LDL 71 8. You-jmkssiu-spdtqtafy diabetes, hemoglobin A1c 8.6% 9. Never smoker, preoperative FEV1 72% of predicted 10. Family history of heart disease 11. Remains unvaccinated against covid Plan: 1. Continue aspirin, statin. Beta jose raul currently on hold due to heart block 2. Wean O2 as tolerated. Encourage incentive spirometry use 3. Increase activity, ambulate as tolerated 4. Continue preoperative teaching 5. 5 m walk test completed, #1 3.51 sec, #2 3.91 sec, #3 3.27 sec. Patient tolerated without difficulty 6. Medical management of other comorbidities per primary care, cardiology, nephrology 7. More recommendations to follow regarding timing of surgery Time with Patient: Greater than 30
[2021-07-20] MEDS: FAMOTIDINE 20 MG TAB PO SCH (10:42)
[2021-07-20] MEDS: FUROSEMIDE 40 MG TAB PO SCH (10:42)
[2021-07-20] MEDS: ASPIRIN 81 MG PO SCH (10:42)
[2021-07-20] MEDS: lisinopriL 10 MG TAB PO SCH (10:42)
[2021-07-20 11:19] LABS: Glucose,Whole Blood 193 mg/dL (75-99)
--- NOTE | 2021-07-20 11:25 | P.PN ---
Subjective This is a pleasant 75 years old male with past medical history of Diabetes Mellitus, Hyperlipidemia, Hypertension Patient presents because of the progressive exertional dyspnea and decreased leg swelling over one month, bilateral leg swelling and bilateral neck pain. However yesterday he started getting orthopnea, he could not lay down and his w talita asked him to come to emergency room. Also patient is complaining of from dry cough and sore throat, mouth is making some clear phlegm. He denies chest pain or abdominal pain. No dizziness. He was complaining of from little diarrhea, he felt almost going to vomit this morning but did not. No urinary complaints. No weakness or numbness He denies smoking, alcohol or illicit drugs Vitals are stable and he is saturating 96% on room air. Labs were reviewed including unremarkable CBC except for mild lymphopenia at 0.7, INR is 1.0. Sodium is 124, carbon dioxide 17, creatinine 1.1, glucose 220 Liver enzymes not elevated. Troponin is high as 0.418, C-reactive protein 2.0. ProBNP is 4880 Coronavirus not detected. EKG showing normal sinus rhythm at 85 with first-degree AV block and incomplete right bundle branch block, no significant ST-T changes. Chest x-ray: Interstitial pulmonary edema with increased cardiomegaly In the emergency room patient was started on IV Lasix 40 mg every 8 hours and cardiology team were consulted. 07/17/2021 Patient breathing is better, he does not complain from jaw pain or neck pain anymore, he is breathing easier, less leg edema. Patient is continued on IV Lasix 40 mg twice daily, also he is on heparin drip His sodium is improved today to 1.7 however his creatinine went up to 1.4. Because of his worsening kidney function we hold his metformin and switch him to Amaryl 2 mg daily, patient informed of his uncontrolled diabetes as his hemoglobin A1c is a 42.6%. Echocardiogram showed ejection fraction of 30-35% with moderate mitral regurgitation, 2018 8 was 55-60% Patient possibly will go for cardiac cath tomorrow 07/18/2021 Patient feels better, his breathing is easier. He has no more jaw pain, leg swelling is significantly improved he has crepitationandonlyminimal. He has some wheezing during examination most likely secondary to his CHF, patient is nonsmoker with no history of COPD. He is hemodynamically stable, he is on room air. Creatinine is trending up 1.1, 1.4, and 1.58 today. However sodium significantly improved up to 133. His Lasix was switched to 40 mg by mouth daily. His glucose is controlled 136 and 142 after he was started on Amaryl today we will keep monitoring, metformin was held for his acute kidney injury. He has slight ejection fraction of 30-35% with moderate MR and he needs cardiac cath however it is on hold now to further evaluation for his kidney injury, most likely secondary to diuresis, nephrology team was consulted, renal ultrasound is pending. 81 mg 07/19/2021 Patient breathing is improved close to normal however he has some residual basal crepitation which is mild. Very minimal leg swelling. No much exertional dyspnea. And his diuretics are switched to oral dose again Lasix 40 mg daily His creatinine improved 1.3 from 1.8 yesterday. Glucose less than 150. After switching his metformin and to Amaryl 2 mg daily. Hemoglobin A1c is 8.6% Plan for him to go for cardiac cath today. Renal ultrasound showing no hydronephrosis. Tenderness on home dose of aspirin 81 mg, oral Lasix and metoprolol 07/20/2021 Today with minimal dyspnea however he still have bilateral basal crepitation and leg edema, he is saturating 95-96% on 2 L oxygen via nasal cannula. His creatinine slightly up to 1.5. Glucose controlled. Renal ultrasound showing no hydronephrosis. Cardiac cath yesterday showing severe triple coronary artery disease, referred to thoracic surgery been consulted for possible CABG Objective - Vital Signs Vital signs: Vital Signs Temp 97.7 F 07/20/21 09:40 Pulse 76 07/20/21 09:40 Resp 18 07/20/21 09:40 BP 112/69 07/20/21 09:40 Pulse Ox 99 07/20/21 09:40 Intake & Output 07/19/21 07/20/21 07/20/21 18:59 06:59 18:59 Intake Total 1447.833 81.667 150 Output Total 200 Balance 1447.833 -118.333 150 Weight 90.8 kg Intake: IV 200 150 Intake, IV Titration 15.833 81.667 Amount Heparin Sod,Pork in 0.45% 15.833 NaCl 25,000 unit In 0.45 % NaCl 1 250ml.bag @ 11. 023 UNITS/KG/HR 10 mls/hr IV .Q24H [facility] Rx#: [id number] Heparin Sod,Pork in 0.45% 81.667 NaCl 25,000 unit In 0.45 % NaCl 1 250ml.bag @ 11. 198 UNITS/KG/HR 10 mls/hr IV .Q24H [facility] Rx#: [id number] Oral 1232 Output: Urine 200 - Exam GENERAL: The patient is alert and oriented x3, not in any acute distress. Well developed, well nourished. HEENT: Pupils are round and equally reacting to light. EOMI. No scleral icterus. No conjunctival pallor. Normocephalic, atraumatic. No pharyngeal erythema. No thyromegaly. CARDIOVASCULAR: S1 and S2 present. No murmurs, rubs, or gallops. -PULMONARY: Chest is clear to auscultation, no wheezing . Bilateral basal crepitation ABDOMEN: Soft, nontender, nondistended, normoactive bowel sounds. No palpable organomegaly. MUSCULOSKELETAL: No joint swelling or deformity. -EXTREMITIES: No cyanosis, clubbing, . Bilateral pitting leg edema. NEUROLOGICAL: Gross neurological examination did not reveal any focal deficits. SKIN: No rashes. No petechiae - Labs CBC & Chem 7: 07/20/21 02:51 07/20/21 02:51 Labs: Abnormal Lab Results - Last 24 Hours (Table) 07/19/21 07/19/21 07/19/21 Range/Units 12:06 13:13 16:32 RBC (4.30-5.90) m/uL Hgb (13.0-17.5) gm/dL MCV (80.0-100.0) fL APTT (22.0-30.0) sec Sodium (137-145) mmol/L Chloride (98-107) mmol/L BUN (9-20) mg/dL Creatinine (0.66-1.25) mg/dL Glucose (74-99) mg/dL POC Glucose (mg/dL) 124 H 129 H (75-99) mg/dL Troponin I 0.429 H* (0.000-0.034) ng/mL 07/19/21 07/20/21 07/20/21 Range/Units 20:16 02:51 02:51 RBC 3.89 L (4.30-5.90) m/uL Hgb 12.7 L (13.0-17.5) gm/dL MCV 101.1 H (80.0-100.0) fL APTT (22.0-30.0) sec Sodium 135 L (137-145) mmol/L Chloride 97 L (98-107) mmol/L BUN 28 H (9-20) mg/dL Creatinine 1.54 H (0.66-1.25) mg/dL Glucose 121 H (74-99) mg/dL POC Glucose (mg/dL) 162 H (75-99) mg/dL Troponin I (0.000-0.034) ng/mL 07/20/21 07/20/21 07/20/21 Range/Units 02:51 05:55 09:19 RBC (4.30-5.90) m/uL Hgb (13.0-17.5) gm/dL MCV (80.0-100.0) fL APTT 33.3 H 97.7 H (22.0-30.0) sec Sodium (137-145) mmol/L Chloride (98-107) mmol/L BUN (9-20) mg/dL Creatinine (0.66-1.25) mg/dL Glucose (74-99) mg/dL POC Glucose (mg/dL) 132 H (75-99) mg/dL Troponin I (0.000-0.034) ng/mL Microbiology - Last 24 Hours (Table) 07/19/21 17:10 Nasal Screen MRSA/MSSA - Preliminary Nasopharyngeal Swab 07/16/21 07:48 Group A Strep Throat Culture - Final Throat Assessment and Plan Assessment: severe triple coronary artery diseas Acute systolic heart failure, , ischemic cardiomyopathy is suspected with ejection fraction of 30-35% None STEMI Acute kidney injury, suspected secondary to diuresis. Sore throat, improved, coronavirus is negative Hyponatremia Diabetes mellitus, With hyperglycemia upon admission . Hemoglobin A1c is 8.6% Hypertension Hyperlipidemia Plan: this is a pleasant 75 years old male who presents with possible acute CHF and high troponin. referral to thoracic surgery been consulted for possible CABG Continue with oral Lasix and monitor creatinine and electrolytes Cardiology consult . Cartilage surfaces patient will need AICD open discharge Consult nephrology consult Continue with fluid restriction 1500 mL per day Hold metformin for worsening creatinine and start Amaryl. Nephrology consult Labs and medication were reviewed.. Continue same treatment. Continue with symptomatic treatment. Resume home medication. Monitor lytes and vitals. DVT and GI prophylaxis. Further recommendations depends on the clinical course of the patient DVT prophylaxis: Subcutaneous heparin GI Prophylaxis: Pepcid PT/OT: Pending Prognosis is guarded
--- NOTE | 2021-07-20 11:26 | P.ARTDOP ---
Arterial Doppler Bilateral radial artery imaging: Date of study: 07/19/2021. Reason for study: Preop CABG. Findings: Imaging shows the right radial to be 4.1 x 3.3 mm diameter, the mid is 4.5 x 3.5, distally its 3.2 x 2.3 mm. The left radial proximally it measures 3.5 x 2.6 mm, mid its 2.9 x 2.3 mm, distally its 3.4 x 2.6 mm. We see no wall abnormalities or flow abnormalities.. Impression: Both radial arteries meet size criteria for use as conduit. No statement regarding usability and adequacy of collateralization can be made.
--- NOTE | 2021-07-20 11:29 | P.VSCSTY ---
Greater Saphenous Vein Mapping This is bilateral lower extremity greater saphenous vein mapping. Date of service: 07/19/2021 Vein quality and ultrasound appearance: We see no intraluminal thrombus or obvious wall change. Vein size groin right : 5.6 x 5.6 groin left: 5.0 x 4.9 High thigh right: 4.0 x 4.2 high thigh left: 5.2 x 4.9 Mid thigh right: 2.0 x 1.5 mid thigh left: 2.6 x 2.2 Above-knee right: 1.6 x 1.6 above- knee left: 2.7 x 1.8 Knee: 2.1 x 2.1 knee 2.8 x 2.5 Below knee right: 2.5 x 2.0 below-knee left: 1.8 x 1.7 Mid calf right: 1.7 x 1.3 mid calf left: 2.0 x 1.7 Ankle right: 1.8 x 1.4 ankle left: 2.3 x 1.7 Impression: The upper thigh on the right and most of the thigh on the left appear to have vein that is adequate for use as conduit. The size is variable and somewhat iffy in the rest of both legs. Clinical correlation recommended..
[2021-07-20] MEDS: HEPARIN SOD,PORK IN 0.45% NACL 25,000 UNIT in 0.45% NACL 1 250ML.BAG IV SCH (14:38)
[2021-07-20] MEDS: MUPIROCIN 2% OINT 22 GM TUBE NASAL SCH ×2 (14:40→20:25)
--- NOTE | 2021-07-20 16:11 | PN ---
PROGRESS NOTE Patient is seen for followup for acute kidney injury. He is status post cardiac catheterization done yesterday for non ST elevation FL, which showed multivessel disease and patient has been evaluated by Cardiothoracic surgery as well. Overall, he states he is feeling better. Denies any significant shortness of breath. PHYSICAL EXAMINATION: Blood pressure this morning 112/69, heart rate 76 per minute. He is afebrile, O2 sats 99% on 2 L nasal cannula. Examination of the heart S1, S2. Examination of the lungs, decreased breath sounds at the bases. Abdomen is soft, nontender. Examination of lower extremities shows trace edema bilaterally. APPLICATIONS CHEMIST exam grossly intact. LAB: Show sodium 135, potassium 3.9, chloride 97, BUN 28, creatinine 1.5, hemoglobin 12.7 g/dL. ASSESSMENT: 1. Acute kidney injury secondary to hypotension, mostly cardiorenal currently being diuresed. May continue with oral Lasix. Patient's blood pressure is on the lower side. ALEJO inhibitors currently on hold. 2. Multivessel coronary artery disease, being evaluated by cardiothoracic surgery. 3. Cardiomyopathy, ejection fraction 30-35%. 4. Acute systolic congestive heart failure. PLAN: Continue with current dose of Lasix. Monitor labs. Avoid hypotension. Being considered for coronary artery bypass surgery. MMODL / IJN: [id number] /
[2021-07-20 16:25] LABS: Glucose,Whole Blood 106 mg/dL (75-99)
--- NOTE | 2021-07-20 18:21 | P.PN ---
Subjective Progress Note Date: 07/20/21 07/20/2021, the patient is doing well. The patient free of any chest pain. The patient is hemodynamically stable. The patient underwent DELVIS today and the patient was found to have moderate to severe aortic stenosis with a valve area of 1.2 cm. As such the plan is to proceed with bypass only without any valvular surgery. The patient's otherwise is doing well. No respiratory difficulties. His breathing is better as the patient's CHF has been optimized. The patient's ejection fraction is around 30-35%. The patient's creatinine is slightly up to 1.5 on today's evaluation. Renal ultrasound shows no evidence of any hydronephrosis. 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 Meanwhile, the patient remains on oxygen 2 L per minute nasal cannula. No other significant events otherwise. No significant cough or sputum production chest that is so wheezing. The patient remains on IV heparin. The patient is also on oral Lasix for now. The patient FEV1 is noted of 72% of predicted. The patient underwent a CAT scan of the chest today and showed calcification of the aortic arch, bilateral pleural effusions small in addition to cardiomegaly. No other acute abnormalities were seen. Objective - Vital Signs Vital signs: Vital Signs Temp 97.6 F 07/20/21 15:56 Pulse 78 07/20/21 15:56 Resp 16 07/20/21 15:56 BP 143/74 07/20/21 15:56 Pulse Ox 100 07/20/21 15:56 Intake & Output 07/19/21 07/20/21 07/20/21 18:59 06:59 18:59 Intake Total 1447.833 81.667 401.939 Output Total 450 Balance 1447.833 -368.333 401.939 Weight 90.8 kg Intake: IV 200 150 Intake, IV Titration 15.833 81.667 133.939 Amount Heparin Sod,Pork in 0.45% 15.833 NaCl 25,000 unit In 0.45 % NaCl 1 250ml.bag @ 11. 023 UNITS/KG/HR 10 mls/hr IV .Q24H [facility] Rx#: [id number] Heparin Sod,Pork in 0.45% 81.667 133.939 NaCl 25,000 unit In 0.45 % NaCl 1 250ml.bag @ 11. 198 UNITS/KG/HR 10 mls/hr IV .Q24H [facility] Rx#: [id number] Oral 1232 118 Output: Urine 450 Other: # Voids 1 - Exam GENERAL: The patient is alert and oriented x3, not in any acute distress. Well developed, well nourished. HEENT: Pupils are round and equally reacting to light. EOMI. No scleral icterus. No conjunctival pallor. Normocephalic, atraumatic. No pharyngeal erythema. No thyromegaly. CARDIOVASCULAR: S1 and S2 present. No murmurs, rubs, or gallops. -PULMONARY: Chest is clear to auscultation, no wheezing . Bilateral basal crepitation ABDOMEN: Soft, nontender, nondistended, normoactive bowel sounds. No palpable organomegaly. MUSCULOSKELETAL: No joint swelling or deformity. -EXTREMITIES: No cyanosis, clubbing, . Bilateral pitting leg edema. NEUROLOGICAL: Gross neurological examination did not reveal any focal deficits. SKIN: No rashes. No petechiae - Labs CBC & Chem 7: 07/20/21 02:51 07/20/21 02:51 Labs: Abnormal Lab Results - Last 24 Hours (Table) 07/19/21 07/20/21 07/20/21 Range/Units 20:16 02:51 02:51 RBC 3.89 L (4.30-5.90) m/uL Hgb 12.7 L (13.0-17.5) gm/dL MCV 101.1 H (80.0-100.0) fL APTT (22.0-30.0) sec Sodium 135 L (137-145) mmol/L Chloride 97 L (98-107) mmol/L BUN 28 H (9-20) mg/dL Creatinine 1.54 H (0.66-1.25) mg/dL Glucose 121 H (74-99) mg/dL POC Glucose (mg/dL) 162 H (75-99) mg/dL 07/20/21 07/20/21 07/20/21 Range/Units 02:51 05:55 09:19 RBC (4.30-5.90) m/uL Hgb (13.0-17.5) gm/dL MCV (80.0-100.0) fL APTT 33.3 H 97.7 H (22.0-30.0) sec Sodium (137-145) mmol/L Chloride (98-107) mmol/L BUN (9-20) mg/dL Creatinine (0.66-1.25) mg/dL Glucose (74-99) mg/dL POC Glucose (mg/dL) 132 H (75-99) mg/dL 07/20/21 07/20/21 Range/Units 11:17 16:24 RBC (4.30-5.90) m/uL Hgb (13.0-17.5) gm/dL MCV (80.0-100.0) fL APTT (22.0-30.0) sec Sodium (137-145) mmol/L Chloride (98-107) mmol/L BUN (9-20) mg/dL Creatinine (0.66-1.25) mg/dL Glucose (74-99) mg/dL POC Glucose (mg/dL) 193 H 106 H (75-99) mg/dL Microbiology - Last 24 Hours (Table) 07/19/21 17:10 Nasal Screen MRSA/MSSA - Preliminary Nasopharyngeal Swab Assessment and Plan Plan: 1 acute non-ST segment elevation myocardial infarction, currently on IV heparin, free of any chest pain, awaiting coronary artery bypass surgery and a tentative surgical date is on 07/22/2021. 2 multivessel coronary artery disease, please refer to the cardiac catheterization report 3 acute systolic congestion heart failure with an ejection fraction of 3035% and the patient is currently in pulmonary edema and his CHF is being optimized, CAT scan of the sinuses showing small bilateral pleural effusions along with cardiomegaly. 4 acute hypoxic respiratory failure secondary to pulmonary edema currently on 2 L of oxygen by nasal cannula. Underlying chronic lung disease doubtful, and the patient has an FEV1 of 72% of predicted 5 hypertension 6 hyperlipidemia LDL level of 71 7 diabetes mellitus with an HbA1c level of 8.6% 8 acute kidney injury due to cardiorenal problems. Patient's creatinine maxed at 1.5 and the patient is currently on oral Lasix 9 aortic valve stenosis moderately severe with a valve area of 1.3 cm. Plan Overall pulmonary status is stable Optimize CHF Diuretics and sensation to oral CAT scan of the chest was noted and there are still small bilateral pleural effusion and cardiomegaly Perform bedside spirometry was completed and shows no synovial obstructive airway limitation Chest x-ray was reviewed. No pulmonary contraindication for surgery. Will be glad to follow-up this patient postop and manage the ventilator and attempt for any pulmonary issues or complications. Complete the workup including carotid artery Dopplers and vein mapping involving the lower extremities Continue aspirin and statins and beta blockers for now Nephrology consult Results of the DELVIS were noted and the patient has moderate severe aortic stenosis We'll continue to follow.
--- NOTE | 2021-07-20 19:55 | CT ---
EXAMINATION TYPE: CT chest wo con DATE OF EXAM: 07/20/2021 COMPARISON: Radiographs 07/19/2021 HISTORY: preopen heart CT DLP: 585.9 mGycm. Automated Exposure Control for Dose Reduction was Utilized. TECHNIQUE: CT scan of the thorax is performed without IV contrast. FINDINGS: LUNGS: There are small bilateral pleural effusions with adjacent mild hazy opacity. No pneumothorax o r suspicious nodule seen. The tracheobronchial tree is patent. MEDIASTINUM: Lack of IV contrast is noted to limit evaluation for mediastinal and especially hilar ad enopathy. There are no definitive greater than 1 cm hilar or mediastinal lymph nodes. Mild cardiomega ly without pericardial effusion. There is moderate to advanced thoracic aorta and coronary atheroscle rotic disease. Otherwise the great vessels is unremarkable. OTHER: No additional significant abnormality is seen. IMPRESSION: Small bilateral pleural effusions with adjacent mild opacity, probably atelectasis. Moderate to advanced atherosclerotic disease.
[2021-07-20 20:17] LABS: Glucose,Whole Blood 218 mg/dL (75-99)
[2021-07-20] MEDS: hydrALAZINE HCL 25 MG TAB PO SCH (20:24)
[2021-07-20] MEDS: ATORVASTATIN 40 MG TAB PO SCH (20:24)
[2021-07-21 02:30] LABS: Calcium 8.8 mg/dL (8.4-10.2); Potassium 4.3 mmol/L (3.5-5.1)
[2021-07-21 06:08] LABS: Glucose,Whole Blood 144 mg/dL (75-99)
[2021-07-21] MEDS: GLIMEPIRIDE 2 MG TAB PO SCH (06:31)
[2021-07-21] MEDS: INSULIN ASPART (NovoLOG) 100 UNIT/ML VIAL SQ SCH ×4 (06:31→21:25)
[2021-07-21 09:01] LABS: HCT 38.7 % (39.0-53.0); HGB 12.5 gm/dL (13.0-17.5); MCH 32.7 pg (25.0-35.0); MCHC 32.3 g/dL (31.0-37.0); MCV 101.2 fL (80.0-100.0); Macrocytosis Slight; Mean Platelet Volume 8.1; Platelet Count 188 k/uL (150-450); RBC 3.83 m/uL (4.30-5.90); RDW 13.4 % (11.5-15.5); WBC 4.3 k/uL (3.8-10.6)
[2021-07-21] MEDS: ASPIRIN 81 MG PO SCH (09:14)
[2021-07-21] MEDS: FAMOTIDINE 20 MG TAB PO SCH (09:14)
[2021-07-21] MEDS: FUROSEMIDE 40 MG TAB PO SCH (09:14)
[2021-07-21] MEDS: hydrALAZINE HCL 25 MG TAB PO SCH ×2 (09:14→21:25)
[2021-07-21] MEDS: MUPIROCIN 2% OINT 22 GM TUBE NASAL SCH ×2 (09:15→21:25)
[2021-07-21] MEDS ORDERED: [UNRECOGNIZED DRUG - REMARK] PO ONE (09:16)
--- NOTE | 2021-07-21 10:59 | P.PN ---
Subjective This is a pleasant 75 years old male with past medical history of Diabetes Mellitus, Hyperlipidemia, Hypertension Patient presents because of the progressive exertional dyspnea and decreased leg swelling over one month, bilateral leg swelling and bilateral neck pain. However yesterday he started getting orthopnea, he could not lay down and his w talita asked him to come to emergency room. Also patient is complaining of from dry cough and sore throat, mouth is making some clear phlegm. He denies chest pain or abdominal pain. No dizziness. He was complaining of from little diarrhea, he felt almost going to vomit this morning but did not. No urinary complaints. No weakness or numbness He denies smoking, alcohol or illicit drugs Vitals are stable and he is saturating 96% on room air. Labs were reviewed including unremarkable CBC except for mild lymphopenia at 0.7, INR is 1.0. Sodium is 124, carbon dioxide 17, creatinine 1.1, glucose 220 Liver enzymes not elevated. Troponin is high as 0.418, C-reactive protein 2.0. ProBNP is 4880 Coronavirus not detected. EKG showing normal sinus rhythm at 85 with first-degree AV block and incomplete right bundle branch block, no significant ST-T changes. Chest x-ray: Interstitial pulmonary edema with increased cardiomegaly In the emergency room patient was started on IV Lasix 40 mg every 8 hours and cardiology team were consulted. 07/17/2021 Patient breathing is better, he does not complain from jaw pain or neck pain anymore, he is breathing easier, less leg edema. Patient is continued on IV Lasix 40 mg twice daily, also he is on heparin drip His sodium is improved today to 1.7 however his creatinine went up to 1.4. Because of his worsening kidney function we hold his metformin and switch him to Amaryl 2 mg daily, patient informed of his uncontrolled diabetes as his hemoglobin A1c is a 42.6%. Echocardiogram showed ejection fraction of 30-35% with moderate mitral regurgitation, 2018 8 was 55-60% Patient possibly will go for cardiac cath tomorrow 07/18/2021 Patient feels better, his breathing is easier. He has no more jaw pain, leg swelling is significantly improved he has crepitationandonlyminimal. He has some wheezing during examination most likely secondary to his CHF, patient is nonsmoker with no history of COPD. He is hemodynamically stable, he is on room air. Creatinine is trending up 1.1, 1.4, and 1.58 today. However sodium significantly improved up to 133. His Lasix was switched to 40 mg by mouth daily. His glucose is controlled 136 and 142 after he was started on Amaryl today we will keep monitoring, metformin was held for his acute kidney injury. He has slight ejection fraction of 30-35% with moderate MR and he needs cardiac cath however it is on hold now to further evaluation for his kidney injury, most likely secondary to diuresis, nephrology team was consulted, renal ultrasound is pending. 81 mg 07/19/2021 Patient breathing is improved close to normal however he has some residual basal crepitation which is mild. Very minimal leg swelling. No much exertional dyspnea. And his diuretics are switched to oral dose again Lasix 40 mg daily His creatinine improved 1.3 from 1.8 yesterday. Glucose less than 150. After switching his metformin and to Amaryl 2 mg daily. Hemoglobin A1c is 8.6% Plan for him to go for cardiac cath today. Renal ultrasound showing no hydronephrosis. Tenderness on home dose of aspirin 81 mg, oral Lasix and metoprolol 07/20/2021 Today with minimal dyspnea however he still have bilateral basal crepitation and leg edema, he is saturating 95-96% on 2 L oxygen via nasal cannula. His creatinine slightly up to 1.5. Glucose controlled. Renal ultrasound showing no hydronephrosis. Cardiac cath yesterday showing severe triple coronary artery disease, referred to thoracic surgery been consulted for possible CABG 07/21/2021 Patient currently sitting in bed looks comfortable, no chest pain, no significant dyspnea. Using his incentive spirometry frequently. He is currently kept on heparin drip. Minimal leg swelling, mild basal crepitation. He is hemodynamically stable. He is saturating 97% on 2 L oxygen via nasal cannula. His sodium 132, creatinine improved to 1.28, glucose controlled while he is on Amaryl 2 mg. His metformin, metoprolol and lisinopril are on hold for hypertension acute kidney injury. Patient currently has been worked up for possible cardiac bypass surgery with cardiovascular surgery team on the case. Objective - Vital Signs Vital signs: Vital Signs Temp 97.4 F L 07/21/21 08:00 Pulse 88 07/21/21 08:00 Resp 18 07/21/21 08:00 BP 132/78 07/21/21 08:00 Pulse Ox 97 07/21/21 08:00 Intake & Output 07/20/21 07/21/21 07/21/21 18:59 06:59 18:59 Intake Total 401.939 593.013 120 Output Total 800 1250 475 Balance -398.061 -656.987 -355 Weight 91.9 kg Intake: IV 150 Intake, IV Titration 133.939 53.013 Amount Heparin Sod,Pork in 0.45% 133.939 53.013 NaCl 25,000 unit In 0.45 % NaCl 1 250ml.bag @ 11. 198 UNITS/KG/HR 10 mls/hr IV .Q24H [facility] Rx#: [id number] Oral 118 540 120 Output: Urine 800 1250 475 Other: Voiding Method Urinal # Voids 3 1 - Exam GENERAL: The patient is alert and oriented x3, not in any acute distress. Well developed, well nourished. HEENT: Pupils are round and equally reacting to light. EOMI. No scleral icterus. No conjunctival pallor. Normocephalic, atraumatic. No pharyngeal erythema. No thyromegaly. CARDIOVASCULAR: S1 and S2 present. No murmurs, rubs, or gallops. -PULMONARY: Chest is clear to auscultation, no wheezing . Bilateral basal crepitation ABDOMEN: Soft, nontender, nondistended, normoactive bowel sounds. No palpable organomegaly. MUSCULOSKELETAL: No joint swelling or deformity. -EXTREMITIES: No cyanosis, clubbing, . Bilateral pitting leg edema. NEUROLOGICAL: Gross neurological examination did not reveal any focal deficits. SKIN: No rashes. No petechiae - Labs CBC & Chem 7: 07/21/21 08:22 07/21/21 01:46 Labs: Abnormal Lab Results - Last 24 Hours (Table) 07/20/21 07/20/21 07/20/21 Range/Units 09:19 11:17 16:24 RBC (4.30-5.90) m/uL Hgb (13.0-17.5) gm/dL Hct (39.0-53.0) % MCV (80.0-100.0) fL APTT 97.7 H (22.0-30.0) sec Sodium (137-145) mmol/L BUN (9-20) mg/dL Creatinine (0.66-1.25) mg/dL Glucose (74-99) mg/dL POC Glucose (mg/dL) 193 H 106 H (75-99) mg/dL 07/20/21 07/20/21 07/21/21 Range/Units 18:32 20:12 01:46 RBC (4.30-5.90) m/uL Hgb (13.0-17.5) gm/dL Hct (39.0-53.0) % MCV (80.0-100.0) fL APTT 39.8 H (22.0-30.0) sec Sodium 132 L (137-145) mmol/L BUN 28 H (9-20) mg/dL Creatinine 1.28 H (0.66-1.25) mg/dL Glucose 143 H (74-99) mg/dL POC Glucose (mg/dL) 218 H (75-99) mg/dL 07/21/21 07/21/21 07/21/21 Range/Units 01:49 06:07 08:22 RBC 3.83 L (4.30-5.90) m/uL Hgb 12.5 L (13.0-17.5) gm/dL Hct 38.7 L (39.0-53.0) % MCV 101.2 H (80.0-100.0) fL APTT 47.4 H (22.0-30.0) sec Sodium (137-145) mmol/L BUN (9-20) mg/dL Creatinine (0.66-1.25) mg/dL Glucose (74-99) mg/dL POC Glucose (mg/dL) 144 H (75-99) mg/dL Microbiology - Last 24 Hours (Table) 07/19/21 17:10 Nasal Screen MRSA/MSSA - Final Nasopharyngeal Swab Assessment and Plan Assessment: severe triple coronary artery diseas Acute systolic heart failure, , ischemic cardiomyopathy is suspected with ejection fraction of 30-35% None STEMI Acute kidney injury, suspected secondary to diuresis. Sore throat, improved, coronavirus is negative Hyponatremia Diabetes mellitus, With hyperglycemia upon admission . Hemoglobin A1c is 8.6% Hypertension Hyperlipidemia Plan: this is a pleasant 75 years old male who presents with possible acute CHF and high troponin. referral to thoracic surgery been consulted for possible CABG Continue with oral Lasix and monitor creatinine and electrolytes Cardiology consult . Cartilage surfaces patient will need AICD open discharge Consult nephrology consult Continue with fluid restriction 1500 mL per day Hold metformin for worsening creatinine and start Amaryl. Nephrology consult Labs and medication were reviewed.. Continue same treatment. Continue with symptomatic treatment. Resume home medication. Monitor lytes and vitals. DVT and GI prophylaxis. Further recommendations depends on the clinical course of the patient DVT prophylaxis: Subcutaneous heparin GI Prophylaxis: Pepcid PT/OT: Pending Prognosis is guarded
[2021-07-21] MEDS ORDERED: BENZOCAINE/MENTHOL LOZENG 1 EACH LOZENGE MUCOUS MEM PRN (11:16)
[2021-07-21 11:38] LABS: Glucose,Whole Blood 116 mg/dL (75-99)
--- NOTE | 2021-07-21 12:14 | P.PN ---
Subjective Progress Note Date: 07/21/21 Principal diagnosis: Triple-vessel coronary artery disease, non-STEMI and admission, acute systolic heart failure present on admission, EF 30-35%, first-degree heart block, paroxys mal episodes of second-degree and complete heart block this admission, acute kidney injury, elevated CRP, pro-calcitonin on admission. Previous medical history of hypertension, hyperlipidemia, hmm-tarjuql-gdupzzonl diabetes, never smoker, family history of heart disease, remains unvaccinated against covid The patient's currently sitting up in bed in no acute distress on the cardiac stepdown unit. Denies any chest pain or shortness of breath. He was seen and examined yesterday by Dr. Bingham with recommendations for bypass surgery, along with aortic valve replacement tomorrow, 07/22/2021. He has been ambulatory in his room without difficulty. No other new concerns. Objective - Vital Signs Vital signs: Vital Signs Temp 98.1 F 07/21/21 04:00 Pulse 82 07/21/21 04:00 Resp 16 07/21/21 04:00 BP 110/62 07/21/21 04:00 Pulse Ox 96 07/21/21 04:00 Intake & Output 07/20/21 07/21/21 07/21/21 18:59 06:59 18:59 Intake Total 401.939 593.013 Output Total 800 1250 Balance -398.061 -656.987 Weight 91.9 kg Intake: IV 150 Intake, IV Titration 133.939 53.013 Amount Heparin Sod,Pork in 0.45% 133.939 53.013 NaCl 25,000 unit In 0.45 % NaCl 1 250ml.bag @ 11. 198 UNITS/KG/HR 10 mls/hr IV .Q24H [facility] Rx#: [id number] Oral 118 540 Output: Urine 800 1250 Other: Voiding Method Urinal # Voids 3 1 - Exam CONSTITUTIONAL: Appears comfortable, cooperative, no acute distress RESPIRATORY: Lungs sounds diminished bilaterally. Respirations even, nonlabored. Currently on 2 L nasal cannula with oxygen saturation 96%. Able to achieve 2000 mL on incentive spirometry. Strong productive cough. CARDIOVASCULAR: S1, S2 present. Regular rate and rhythm, sinus rhythm with first-degree AV block on telemetry. Palpable peripheral pulses bilaterally. No edema present. No calf pain or tenderness noted. GASTROINTESTINAL: Abdomen soft, nontender, nondistended. Active bowel sounds present 4 quadrants. Tolerating diet GENITOURINARY: Continues to void INTEGUMENTARY: Skin is warm and dry with evidence of good perfusion NEUROLOGIC: Cranial nerves II through XII intact MUSKULOSKELETAL: Able to move all extremities, strength equal bilaterally, gait normal PSYCHIATRIC: Alert and oriented to person place and time, appropriate affect, intact judgment and insight - Allied health notes Allied health notes reviewed: nursing - Labs CBC & Chem 7: 07/21/21 08:22 07/21/21 01:46 Labs: Abnormal Lab Results - Last 24 Hours (Table) 07/20/21 07/20/21 07/20/21 Range/Units 09:19 11:17 16:24 APTT 97.7 H (22.0-30.0) sec Sodium (137-145) mmol/L BUN (9-20) mg/dL Creatinine (0.66-1.25) mg/dL Glucose (74-99) mg/dL POC Glucose (mg/dL) 193 H 106 H (75-99) mg/dL 07/20/21 07/20/21 07/21/21 Range/Units 18:32 20:12 01:46 APTT 39.8 H (22.0-30.0) sec Sodium 132 L (137-145) mmol/L BUN 28 H (9-20) mg/dL Creatinine 1.28 H (0.66-1.25) mg/dL Glucose 143 H (74-99) mg/dL POC Glucose (mg/dL) 218 H (75-99) mg/dL 07/21/21 07/21/21 Range/Units 01:49 06:07 APTT 47.4 H (22.0-30.0) sec Sodium (137-145) mmol/L BUN (9-20) mg/dL Creatinine (0.66-1.25) mg/dL Glucose (74-99) mg/dL POC Glucose (mg/dL) 144 H (75-99) mg/dL Assessment and Plan Assessment: 1. Triple-vessel coronary artery disease, non-STEMI and admission 2. Acute systolic heart failure present on admission, EF 30-35% 3. First-degree heart block, paroxysmal episodes of second-degree and complete heart block this admission 4. Acute kidney injury 5. Elevated CRP, pro-calcitonin on admission 6. Aortic stenosis 7. History of hypertension 8. History of hyperlipidemia, treated, cholesterol 129, LDL 71 9. Amt-maamejt-vuvmbikrw diabetes, hemoglobin A1c 8.6% 10. Never smoker, preoperative FEV1 72% of predicted 11. Family history of heart disease 12. Remains unvaccinated against covid Plan: 1. Continue aspirin, statin. Beta jose raul remains on hold and contraindicated preop due to heart block. Avoid ALEJO/ARB/CCB 48 hours prior to surgery 2. Wean O2 as tolerated. Encourage incentive spirometry use 3. Increase activity, ambulate as tolerated 4. Continue preoperative teaching 5. Our plan is for myocardial revascularization and aortic valve replacement with left internal mammary artery, possible left radial artery harvest, endoscopic vein harvest, and ligation of the left atrial appendage tomorrow, 07/22/[address] Bingham 6. NPO after midnight except sips of water for medications 7. Medical management of other comorbidities per primary care, cardiology, nephrology 8. More recommendations to follow Time with Patient: Greater than 30
[2021-07-21] MEDS: HEPARIN SOD,PORK IN 0.45% NACL 25,000 UNIT in 0.45% NACL 1 250ML.BAG IV SCH (12:42)
--- NOTE | 2021-07-21 12:42 | P.PN ---
<QuanfransiscoshayanAlfredo banguralyn - Last Filed: 07/21/21 12:27> Subjective HISTORY OF PRESENTING ILLNESS She is a pleasant 75-year-old male with history of diabetes mellitus type 2, hyperlipidemia, hypertension and new cardiomyopathy who presented to the hospital on 07/16/21 secondary to increased episodes of shortness of breath over the last 1 month. He had noticed increased lower extremity edema, orthopnea, dyspnea on exertion with increased weight gain. Fairly progressive over a month and then got to the point that his told him to come to the emergency department. Additionally he had noticed pain in both jaws which is worse with exertion and improved with rest. He denies any prior history of CAD. EKG performed shows normal sinus rhythm, Q wave in lead 3 and aVF, normal axis, minimal Q-wave V3 V4, T-wave inversion the [address] depression in V5 V6. Troponin peaked 1.0. His echocardiogram revealed an EF of 3035%, mild aortic stenosis with a peak slashing gradient of 18 mmHg/10 mmHg, mild aortic regurgitation, moderate mitral regurgitation, mild tricuspid regurgitation. In addition, patient also have episodes of third degree AV block on telemetry On 07/19/21, patient underwent cardiac catheterization that revealed multivessel CAD as described above with proximal 95% LAD, mid 99% LAD, 95% OM3, 99% mid dominant circumflex stenosis and Elevated left sided filling pressures. CT Surgery was consulted for CABG workup. DELVIS was recommend to evaluate patient's mitral and aortic valve. On 07/20/21, patient underwent DELVIS which revealed moderate aortic stenosis, mitral valve appears be normal with mild central mitral regurgitation, left atrial appendage is free of clot, EF 30-35% with global hypokinesis 07/21/21 Patient seen and examined at bedside. He overall is feeling well. He states his shortness of breath has improved. His chest pain is mild, but still there. He is able to ambulate to the bathroom and in his room without difficulty. Telemetry reviewed patient continues to have episodes of paroxysmal complete heart block. Patient currently maintained on aspirin 81 mg daily, atorvastatin 40 mg nightly, PO Lasix 40 mg daily, IV heparin. Blood work shows creatinine improving at 1.28, Hgb stable at 12.5, Sodium 132, K 4.3. Patient with 2050mL urine output over 24 hours. .Patient's beta jose raul metoprolol succinate has been held, last dose 07/17/21 1700. PHYSICAL EXAMINATION Vital signs reviewed. CONSTITUTIONAL: No apparent distress. HEENT: Neck Supple. No JVD. No carotid bruit. CHEST EXAMINATION: Lungs are clear to auscultation. No chest wall tenderness is noted on palpation or with deep breathing. HEART EXAMINATION: Regular rate and rhythm. S1, S2 heard. No murmurs, gallops or rub. ABDOMEN: Soft, nontender. Positive bowel sounds. EXTREMITIES: 2+ peripheral pulses, no lower extremity edema and no calf tenderness. NEUROLOGIC EXAMINATION: Patient is awake, alert and oriented x3. ASSESSMENT Acute on chronic systolic heart failure Cardiomyopathy EF 30-35% Non-STEMI Multivessel coronary artery disease Paroxysmal Complete heart block Moderate aortic stenosis Diabetes mellitus type 2 Hyperlipidemia Hypertension Hyponatremia likely related to heart failure PLAN CT surgery following, plan for CABG and aortic valve replacement tomorrow with Dr. Bingham Continue aspirin, statin and PO Lasix Beta jose raul remains on hold Patient will likely need ICD after surgery Further recommendations based on clinical course Objective - Vital Signs Vital signs: Vital Signs Temp 97.4 F L 07/21/21 08:00 Pulse 88 07/21/21 08:00 Resp 18 07/21/21 08:00 BP 132/78 07/21/21 08:00 Pulse Ox 97 07/21/21 08:00 Intake & Output 07/20/21 07/21/21 07/21/21 18:59 06:59 18:59 Intake Total 401.939 593.013 120 Output Total 800 1250 475 Balance -398.061 -656.987 -355 Weight 91.9 kg Intake: IV 150 Intake, IV Titration 133.939 53.013 Amount Heparin Sod,Pork in 0.45% 133.939 53.013 NaCl 25,000 unit In 0.45 % NaCl 1 250ml.bag @ 11. 198 UNITS/KG/HR 10 mls/hr IV .Q24H [facility] Rx#: [id number] Oral 118 540 120 Output: Urine 800 1250 475 Other: Voiding Method Urinal # Voids 3 1 - Labs CBC & Chem 7: 07/21/21 08:22 07/21/21 01:46 Labs: Abnormal Lab Results - Last 24 Hours (Table) 07/20/21 07/20/21 07/20/21 Range/Units 16:24 18:32 20:12 RBC (4.30-5.90) m/uL Hgb (13.0-17.5) gm/dL Hct (39.0-53.0) % MCV (80.0-100.0) fL APTT 39.8 H (22.0-30.0) sec Sodium (137-145) mmol/L BUN (9-20) mg/dL Creatinine (0.66-1.25) mg/dL Glucose (74-99) mg/dL POC Glucose (mg/dL) 106 H 218 H (75-99) mg/dL Crossmatch 07/21/21 07/21/21 07/21/21 Range/Units 01:46 01:49 06:07 RBC (4.30-5.90) m/uL Hgb (13.0-17.5) gm/dL Hct (39.0-53.0) % MCV (80.0-100.0) fL APTT 47.4 H (22.0-30.0) sec Sodium 132 L (137-145) mmol/L BUN 28 H (9-20) mg/dL Creatinine 1.28 H (0.66-1.25) mg/dL Glucose 143 H (74-99) mg/dL POC Glucose (mg/dL) 144 H (75-99) mg/dL Crossmatch 07/21/21 07/21/21 07/21/21 Range/Units 08:22 08:22 11:37 RBC 3.83 L (4.30-5.90) m/uL Hgb 12.5 L (13.0-17.5) gm/dL Hct 38.7 L (39.0-53.0) % MCV 101.2 H (80.0-100.0) fL APTT (22.0-30.0) sec Sodium (137-145) mmol/L BUN (9-20) mg/dL Creatinine (0.66-1.25) mg/dL Glucose (74-99) mg/dL POC Glucose (mg/dL) 116 H (75-99) mg/dL Crossmatch See Detail Microbiology - Last 24 Hours (Table) 07/19/21 17:10 Nasal Screen MRSA/MSSA - Final Nasopharyngeal Swab <Wilber Morse - Last Filed: 07/21/21 18:24> Objective - Vital Signs Vital signs: Vital Signs Temp 97.9 F 07/21/21 15:55 Pulse 136 H 07/21/21 17:30 Resp 19 07/21/21 17:30 BP 131/81 07/21/21 17:30 Pulse Ox 96 07/21/21 17:30 Intake & Output 07/20/21 07/21/21 07/21/21 18:59 06:59 18:59 Intake Total 401.939 593.013 556.987 Output Total 800 1250 1175 Balance -398.061 -656.987 -618.013 Weight 91.9 kg Intake: IV 150 Intake, IV Titration 133.939 53.013 196.987 Amount Heparin Sod,Pork in 0.45% 133.939 53.013 196.987 NaCl 25,000 unit In 0.45 % NaCl 1 250ml.bag @ 11. 198 UNITS/KG/HR 10 mls/hr IV .Q24H [facility] Rx#: [id number] Oral 118 540 360 Output: Urine 800 1250 1175 Other: Voiding Method Urinal Urinal # Voids 3 1 - Labs CBC & Chem 7: 07/21/21 08:22 07/21/21 01:46 Labs: Abnormal Lab Results - Last 24 Hours (Table) 07/20/21 07/20/21 07/21/21 Range/Units 18:32 20:12 01:46 RBC (4.30-5.90) m/uL Hgb (13.0-17.5) gm/dL Hct (39.0-53.0) % MCV (80.0-100.0) fL APTT 39.8 H (22.0-30.0) sec Sodium 132 L (137-145) mmol/L BUN 28 H (9-20) mg/dL Creatinine 1.28 H (0.66-1.25) mg/dL Glucose 143 H (74-99) mg/dL POC Glucose (mg/dL) 218 H (75-99) mg/dL Crossmatch 07/21/21 07/21/21 07/21/21 Range/Units 01:49 06:07 08:22 RBC (4.30-5.90) m/uL Hgb (13.0-17.5) gm/dL Hct (39.0-53.0) % MCV (80.0-100.0) fL APTT 47.4 H (22.0-30.0) sec Sodium (137-145) mmol/L BUN (9-20) mg/dL Creatinine (0.66-1.25) mg/dL Glucose (74-99) mg/dL POC Glucose (mg/dL) 144 H (75-99) mg/dL Crossmatch See Detail 07/21/21 07/21/21 Range/Units 08:22 11:37 RBC 3.83 L (4.30-5.90) m/uL Hgb 12.5 L (13.0-17.5) gm/dL Hct 38.7 L (39.0-53.0) % MCV 101.2 H (80.0-100.0) fL APTT (22.0-30.0) sec Sodium (137-145) mmol/L BUN (9-20) mg/dL Creatinine (0.66-1.25) mg/dL Glucose (74-99) mg/dL POC Glucose (mg/dL) 116 H (75-99) mg/dL Crossmatch Microbiology - Last 24 Hours (Table) 07/19/21 17:10 Nasal Screen MRSA/MSSA - Final Nasopharyngeal Swab
[2021-07-21] MEDS: IPRATROPIUM-ALBUTEROL 3 ML NEB INHALATION SCH ×2 (12:44→19:36)
--- NOTE | 2021-07-21 13:01 | PN ---
PROGRESS NOTE Patient is seen for followup for acute kidney injury. Patient's renal function has been improving, creatinine down to 1.28. Patient has been evaluated by Cardiothoracic Surgery. He remains on heparin drip. On examination today, blood pressure is 110/62, heart rate 82 per minute. He is afebrile. EXAMINATION OF THE HEART: S1 and S2. EXAMINATION OF LUNGS: Bilateral breath sounds are heard. Abdomen is soft, non-tender. Examination of lower extremities shows no significant edema. CUSTOMER SERVICE TRAINER EXAM: Grossly intact. Labs from today show sodium 132, potassium 4.3, chloride 100, BUN 28, creatinine 1.28, hemoglobin 12.5 g/dL. ASSESSMENT: 1. Acute kidney injury secondary to hypotension/cardiorenal, currently improved. Blood pressure has improved and ALEJO inhibitors are on hold. 2. Multivessel coronary artery disease, being evaluated by Cardiothoracic Surgery. 3. Cardiomyopathy, ejection fraction 30% to 35%. 4. Acute systolic congestive heart failure, currently improved. Lasix is at 40 mg p.o. daily. PLAN: Continue the current dose of p.o. Lasix. Repeat labs in a.m. MMODL / IJN: [id number] /
[2021-07-21 16:46] LABS: Glucose,Whole Blood 95 mg/dL (75-99)
--- NOTE | 2021-07-21 16:59 | P.PN ---
Subjective Progress Note Date: 07/21/21 07/20/2021, the patient is doing well. The patient free of any chest pain. The patient is hemodynamically stable. The patient underwent DELVIS today and the patient was found to have moderate to severe aortic stenosis with a valve area of 1.2 cm. As such the plan is to proceed with bypass only without any valvular surgery. The patient's otherwise is doing well. No respiratory difficulties. His breathing is better as the patient's CHF has been optimized. The patient's ejection fraction is around 30-35%. The patient's creatinine is slightly up to 1.5 on today's evaluation. Renal ultrasound shows no evidence of any hydronephrosis. 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 Meanwhile, the patient remains on oxygen 2 L per minute nasal cannula. No other significant events otherwise. No significant cough or sputum production chest that is so wheezing. The patient remains on IV heparin. The patient is also on oral Lasix for now. The patient FEV1 is noted of 72% of predicted. The patient underwent a CAT scan of the chest today and showed calcification of the aortic arch, bilateral pleural effusions small in addition to cardiomegaly. No other acute abnormalities were seen. 07/21/2021, the patient is still stable on IV heparin the patient is headed to his cardiac surgery. I was informed by the nurse practitioner from cardiothoracic team and the patient is going to have a valve surgery/replacement along with coronary artery bypass surgery. He is doing well. He remains on 2 L about 2 by nasal cannula with pulse ox of 99%. No blood work from today shows a white cell count of 4.3 with a hemoglobin 4.5. Creatinine from today's improvements currently at 1.28 with a BMI of 28 and a PTT is therapeutic and the levels of 47. Glucose at home and 16. No cardiac arrhythmias. No other complaints otherwise. Objective - Vital Signs Vital signs: Vital Signs Temp 97.9 F 07/21/21 15:55 Pulse 83 07/21/21 15:55 Resp 17 07/21/21 15:55 BP 115/75 07/21/21 15:55 Pulse Ox 99 07/21/21 15:55 Intake & Output 0107/21/21 07/21/21 18:59 06:59 18:59 Intake Total 401.939 593.013 556.987 Output Total 800 1250 1175 Balance -398.061 -656.987 -618.013 Weight 91.9 kg Intake: IV 150 Intake, IV Titration 133.939 53.013 196.987 Amount Heparin Sod,Pork in 0.45% 133.939 53.013 196.987 NaCl 25,000 unit In 0.45 % NaCl 1 250ml.bag @ 11. 198 UNITS/KG/HR 10 mls/hr IV .Q24H [facility] Rx#: [id number] Oral 118 540 360 Output: Urine 800 1250 1175 Other: Voiding Method Urinal Urinal # Voids 3 1 - Exam GENERAL: The patient is alert and oriented x3, not in any acute distress. Well developed, well nourished. HEENT: Pupils are round and equally reacting to light. EOMI. No scleral icterus. No conjunctival pallor. Normocephalic, atraumatic. No pharyngeal erythema. No thyromegaly. CARDIOVASCULAR: S1 and S2 present. No murmurs, rubs, or gallops. -PULMONARY: Chest is clear to auscultation, no wheezing . Bilateral basal crepitation ABDOMEN: Soft, nontender, nondistended, normoactive bowel sounds. No palpable organomegaly. MUSCULOSKELETAL: No joint swelling or deformity. -EXTREMITIES: No cyanosis, clubbing, . Bilateral pitting leg edema. NEUROLOGICAL: Gross neurological examination did not reveal any focal deficits. SKIN: No rashes. No petechiae - Labs CBC & Chem 7: 07/21/21 08:22 07/21/21 01:46 Labs: Abnormal Lab Results - Last 24 Hours (Table) 07/20/21 07/20/21 07/21/21 Range/Units 18:32 20:12 01:46 RBC (4.30-5.90) m/uL Hgb (13.0-17.5) gm/dL Hct (39.0-53.0) % MCV (80.0-100.0) fL APTT 39.8 H (22.0-30.0) sec Sodium 132 L (137-145) mmol/L BUN 28 H (9-20) mg/dL Creatinine 1.28 H (0.66-1.25) mg/dL Glucose 143 H (74-99) mg/dL POC Glucose (mg/dL) 218 H (75-99) mg/dL Crossmatch 07/21/21 07/21/21 07/21/21 Range/Units 01:49 06:07 08:22 RBC (4.30-5.90) m/uL Hgb (13.0-17.5) gm/dL Hct (39.0-53.0) % MCV (80.0-100.0) fL APTT 47.4 H (22.0-30.0) sec Sodium (137-145) mmol/L BUN (9-20) mg/dL Creatinine (0.66-1.25) mg/dL Glucose (74-99) mg/dL POC Glucose (mg/dL) 144 H (75-99) mg/dL Crossmatch See Detail 07/21/21 07/21/21 Range/Units 08:22 11:37 RBC 3.83 L (4.30-5.90) m/uL Hgb 12.5 L (13.0-17.5) gm/dL Hct 38.7 L (39.0-53.0) % MCV 101.2 H (80.0-100.0) fL APTT (22.0-30.0) sec Sodium (137-145) mmol/L BUN (9-20) mg/dL Creatinine (0.66-1.25) mg/dL Glucose (74-99) mg/dL POC Glucose (mg/dL) 116 H (75-99) mg/dL Crossmatch Microbiology - Last 24 Hours (Table) 07/19/21 17:10 Nasal Screen MRSA/MSSA - Final Nasopharyngeal Swab Assessment and Plan Plan: 1 acute non-ST segment elevation myocardial infarction, currently on IV heparin, free of any chest pain, awaiting coronary artery bypass surgery and a tentative surgical date is on 07/22/2021. Patient is also being considered for valve surgery 2 multivessel coronary artery disease, please refer to the cardiac catheterization report 3 acute systolic congestion heart failure with an ejection fraction of 3035% and the patient is currently in pulmonary edema and his CHF is being optimized, CAT scan of the sinuses showing small bilateral pleural effusions along with cardiomegaly. 4 acute hypoxic respiratory failure secondary to pulmonary edema currently on 2 L of oxygen by nasal cannula. Underlying chronic lung disease doubtful, and the patient has an FEV1 of 72% of predicted 5 hypertension 6 hyperlipidemia LDL level of 71 7 diabetes mellitus with an HbA1c level of 8.6% 8 acute kidney injury due to cardiorenal problems. Patient's creatinine maxed at 1.5 and the patient is currently on oral Lasix 9 aortic valve stenosis moderately severe with a valve area of 1.3 cm. Plan Overall pulmonary status is stable Optimize CHF, currently on 2 L of oxygen by nasal cannula and the patient is currently on oral Lasix CAT scan of the chest was noted and there are still small bilateral pleural effusion and cardiomegaly Perform bedside spirometry was completed and shows no synovial obstructive airway limitation Chest x-ray was reviewed. No pulmonary contraindication for surgery. Will be glad to follow-up this patie nt postop and manage the ventilator and attempt for any pulmonary issues or complications. Renal function is stable We'll continue to follow. Will proceed for surgery in a.m.
[2021-07-21] MEDS ORDERED: AMIODARONE 360 MG in DEXTROSE 5% IN WATER 200 ML IV ONE ×2 (17:35)
[2021-07-21] MEDS ORDERED: DEXTROSE 5% IN WATER 100 ML with AMIODARONE 150 MG IV ONE ×3 (17:35→22:06)
[2021-07-21] MEDS ORDERED: AMIODARONE IN DEXTROSE,ISO-OSM 360 MG/200 ML PLAST..BAG IV ONE (18:00)
[2021-07-21] MEDS ORDERED: AMIODARONE IN DEXTROSE,ISO-OSM 150 MG/100 ML PLAST..BAG IV ONE (18:00)
[2021-07-21 20:26] LABS: Glucose,Whole Blood 200 mg/dL (75-99)
[2021-07-21] MEDS: ATORVASTATIN 40 MG TAB PO SCH (21:25)
[2021-07-21] MEDS: AMIODARONE 450 MG in DEXTROSE 5% IN WATER 250 ML IV SCH ×2 (23:41)
[2021-07-22] MEDS: GLIMEPIRIDE 2 MG TAB PO SCH (01:44)
[2021-07-22] MEDS ORDERED: ASPIRIN 325 MG TAB PO ONE (05:00)
[2021-07-22] MEDS ORDERED: NOREPINEPHRINE 4 MG in SODIUM CHLORIDE 0.9% 250 ML IV SCH (05:00)
[2021-07-22] MEDS ORDERED: PHENYLEPHRINE 40 MG in SODIUM CHLORIDE 0.9% 250 ML IV ONE (05:00)
[2021-07-22] MEDS ORDERED: MAGNESIUM SULFATE 16.24 MEQ in EMPTY SYRINGE 1 SYR IV ONE (05:00)
[2021-07-22] MEDS ORDERED: TRANEXAMIC ACID 2,000 MG in SODIUM CHLORIDE 0.9% 80 ML IV ONE ×4 (05:00)
[2021-07-22] MEDS ORDERED: INSULIN REGULAR 100 UNIT in SODIUM CHLORIDE 0.9% 100 ML IV SCH (05:00)
[2021-07-22] MEDS ORDERED: ATORVASTATIN 10 MG TAB PO ONE (05:00)
[2021-07-22] MEDS ORDERED: CLEVIDIPINE BUTYRATE 25 MG in EMPTY BAG 1 BAG IV SCH ×2 (05:00→16:00)
[2021-07-22] MEDS ORDERED: PROTAMINE SULFATE 250 MG in EMPTY BAG 1 BAG IV ONE (05:00)
[2021-07-22] MEDS ORDERED: NITROGLYCERIN-D5W PMX 25 MG/250 ML BTL IV ONE (05:00)
[2021-07-22] MEDS ORDERED: CHLORHEXIDINE GLUCONATE 15 ML CUP MUCOUS MEM ONE (05:00)
[2021-07-22] MEDS ORDERED: ALBUMIN HUMAN 5% 500 ML in EMPTY BAG 1 BAG IVPB ONE ×6 (05:00)
[2021-07-22] MEDS ORDERED: ELECTROLYTE-A SOLUTION 1,000 ML with POTASSIUM CHLORIDE 100 MEQ, MAGNESIUM SULFATE 16 M... IV SCH ×5 (05:00)
[2021-07-22] MEDS ORDERED: HEPARIN SODIUM,PORCINE 5,000 UNIT in SODIUM CHLORIDE 0.9% 500 ML 500 ML IV ONE (05:00)
[2021-07-22] MEDS ORDERED: HEPARIN SODIUM 1,000 UN/ML (10ML VL) IV ONE (05:00)
[2021-07-22] MEDS ORDERED: SODIUM CHLORIDE 0.9% 1,000 ML IV SCH (05:00)
[2021-07-22] MEDS ORDERED: DILTIAZEM 125 MG in SODIUM CHLORIDE 0.9% 100 ML IV SCH (05:00)
[2021-07-22] MEDS ORDERED: ceFAZolin 1,000 MG in SODIUM CHLORIDE 0.9% IRRIGATIO 1,000 ML IRRIGATION ONE (05:00)
[2021-07-22] MEDS ORDERED: PAPAVERINE 360 MG in SODIUM CHLORIDE 0.9% 90 ML IV ONE (05:00)
[2021-07-22] MEDS ORDERED: ALBUMIN HUMAN 25% 50 ML in EMPTY BAG 1 BAG IVPB ONE (05:00)
[2021-07-22] MEDS ORDERED: PROTAMINE SULFATE 10 MG/ML 25 ML VIAL IV ONE ×2 (05:00→07:51)
[2021-07-22] MEDS ORDERED: MANNITOL 25% 12.5 GM/50 ML VIAL IV ONE ×2 (05:00)
[2021-07-22] MEDS ORDERED: NITROGLYCERIN-D5W PMX 50 MG in DEXTROSE/WATER 1 250ML.BAG IV SCH ×2 (05:00→16:15)
[2021-07-22] MEDS ORDERED: ELECTROLYTE-A SOLUTION 1,000 ML with POTASSIUM CHLORIDE 40 MEQ, MAGNESIUM SULFATE 16 ME... IV SCH ×5 (05:00)
[2021-07-22] MEDS ORDERED: PHENYLEPHRINE 10 MG/ML VIAL IV ONE (05:00)
[2021-07-22] MEDS ORDERED: SODIUM BICARB 8.4% 50 ML SYR (1 MEQ/ML) IV ONE (05:00)
[2021-07-22] MEDS ORDERED: CALCIUM CHLORIDE 100 MG/ML 10 ML SYRINGE IVP ONE (05:00)
[2021-07-22] MEDS: HEPARIN SOD,PORK IN 0.45% NACL 25,000 UNIT in 0.45% NACL 1 250ML.BAG IV SCH (05:14)
[2021-07-22 05:18] LABS: Glucose,Whole Blood 165 mg/dL (75-99)
[2021-07-22] MEDS: INSULIN ASPART (NovoLOG) 100 UNIT/ML VIAL SQ SCH (05:21)
[2021-07-22] MEDS ORDERED: IV FLUID CONTINUATION 300 ML IV ONE (06:15)
[2021-07-22] MEDS ORDERED: MIDAZOLAM 1 MG/ML 5 ML VIAL ONE (07:00)
[2021-07-22] MEDS ORDERED: SUCCINYLCHOLINE CHLORIDE 100 MG/5 ML SYR IV ONE (07:51)
[2021-07-22] MEDS ORDERED: ELECTROLYTE-R (PH 7.4) 1,000 ML IV.SOLN IV ONE (07:51)
[2021-07-22] MEDS ORDERED: ALBUMIN HUMAN 5% (25gm) 500 ML VIAL IVPB ONE (07:51)
[2021-07-22] MEDS ORDERED: TRANEXAMIC ACID 1,000 MG/10 ML VIAL ONE (07:51)
[2021-07-22] MEDS ORDERED: SODIUM CHLORIDE 0.9% 100 ML BAG ONE (07:51)
[2021-07-22] MEDS ORDERED: LIDOCAINE 2% SYG (PF) 100 MG/5 ML ONE (07:51)
[2021-07-22] MEDS ORDERED: SODIUM CHLORIDE 0.9% 250 ML BAG ONE (07:51)
[2021-07-22] MEDS ORDERED: ALBUMIN HUMAN 5% (12.5gm) 250 ML BOTTLE IVPB ONE (07:51)
[2021-07-22] MEDS ORDERED: MIDAZOLAM 2 MG/2 ML VIAL ONE (07:51)
[2021-07-22] MEDS ORDERED: ceFAZolin 1,000 MG VIAL ONE (07:51)
[2021-07-22] MEDS ORDERED: PROPOFOL 10 MG/ML 20 ML VIAL IV ONE (07:51)
[2021-07-22] MEDS ORDERED: PHENYLEPHRINE-0.9% NACL SYG 1,000 MCG/10 ML SYRINGE ONE (07:51)
[2021-07-22] MEDS ORDERED: fentaNYL (PF) 50 MCG/ML 50 ML VIAL ONE (07:51)
[2021-07-22] MEDS ORDERED: MILRINONE 1 MG/ML 20 ML VIAL IV ONE (07:51)
[2021-07-22] MEDS ORDERED: CALCIUM CHLORIDE 100 MG/ML 10 ML SYRINGE ONE (07:51)
[2021-07-22] MEDS ORDERED: HEPARIN SODIUM,PORCINE 10,000 UNIT/ML 1 ML VIAL ONE (07:51)
[2021-07-22] MEDS ORDERED: MAGNESIUM SULFATE 4 MEQ/ML 10ML VIAL ONE (07:51)
[2021-07-22] MEDS ORDERED: ETOMIDATE 2 MG/ML 10 ML VIAL ONE (07:51)
[2021-07-22] MEDS ORDERED: VECURONIUM 10 MG VIAL IV ONE (07:51)
[2021-07-22] MEDS ORDERED: NITROGLYCERIN-D5W PMX 50 MG/250 ML BOTTLE IV ONE (07:51)
[2021-07-22] MEDS ORDERED: INSULIN REGULAR 100 UNIT/ML VIAL (IV) ONE (07:51)
[2021-07-22] MEDS ORDERED: SODIUM CHLORIDE 0.9% IRRIG 1,000 ML BTL IRRIGATION ONE (07:51)
[2021-07-22] MEDS ORDERED: AMIODARONE 50 MG/ML 3 ML VIAL IV ONE (07:51)
[2021-07-22 08:26] LABS: ABG Base Excess 1.3 mmol/L; ABG Glucose Whole Blood 160 mg/dL (75-99); ABG HCO3 26 mmol/L (21-25); ABG Hematocrit 36 % (34.0-46.0); ABG Ionized Calcium 4.7 mg/dL (4.5-5.3); ABG Lactic Acid Whole Blood 1.1 mmol/L (0.5-1.6); ABG Oxygen Saturation 98.1 % (94-97); ABG PCO2 38 mmHg (35-45); ABG PH 7.44 (7.35-7.45); ABG PO2 100 mmHg (83-108); ABG Potassium Whole Blood 4.4 mmol/L (3.4-4.5); ABG Sodium Whole Blood 137 mmol/L (135-146); ABG TCO2 27 mmol/L (19-24)
[2021-07-22] MEDS ORDERED: EPINEPHrine 4 MG in DEXTROSE 5% IN WATER 250 ML IV SCH ×2 (10:45)
[2021-07-22 10:57] LABS: ABG Base Excess -0.3 mmol/L; ABG Glucose Whole Blood 170 mg/dL (75-99); ABG HCO3 25 mmol/L (21-25); ABG Hematocrit 31 % (34.0-46.0); ABG Ionized Calcium 4.6 mg/dL (4.5-5.3); ABG Oxygen Saturation 99.6 % (94-97); ABG PCO2 41 mmHg (35-45); ABG PH 7.39 (7.35-7.45); ABG PO2 240 mmHg (83-108); ABG Potassium Whole Blood 3.9 mmol/L (3.4-4.5); ABG Sodium Whole Blood 136 mmol/L (135-146); ABG TCO2 26 mmol/L (19-24)
[2021-07-22 11:21] LABS: ABG Base Excess -1.2 mmol/L; ABG Glucose Whole Blood 160 mg/dL (75-99); ABG HCO3 23 mmol/L (21-25); ABG Ionized Calcium 4.2 mg/dL (4.5-5.3); ABG PCO2 37 mmHg (35-45); ABG PH 7.41 (7.35-7.45); ABG PO2 394 mmHg (83-108); ABG Potassium Whole Blood 3.6 mmol/L (3.4-4.5); ABG Sodium Whole Blood 134 mmol/L (135-146); ABG TCO2 25 mmol/L (19-24)
[2021-07-22 12:09] LABS: ABG Base Excess 0.4 mmol/L; ABG Glucose Whole Blood 147 mg/dL (75-99); ABG HCO3 25 mmol/L (21-25); ABG Ionized Calcium 4.3 mg/dL (4.5-5.3); ABG Lactic Acid Whole Blood 1.3 mmol/L (0.5-1.6); ABG Oxygen Saturation 99.7 % (94-97); ABG PCO2 40 mmHg (35-45); ABG PH 7.41 (7.35-7.45); ABG PO2 235 mmHg (83-108); ABG Potassium Whole Blood 4.5 mmol/L (3.4-4.5); ABG Sodium Whole Blood 135 mmol/L (135-146); ABG TCO2 26 mmol/L (19-24)
--- NOTE | 2021-07-22 12:13 | P.PN ---
Subjective This is a pleasant 75 years old male with past medical history of Diabetes Mellitus, Hyperlipidemia, Hypertension Patient presents because of the progressive exertional dyspnea and decreased leg swelling over one month, bilateral leg swelling and bilateral neck pain. However yesterday he started getting orthopnea, he could not lay down and his w talita asked him to come to emergency room. Also patient is complaining of from dry cough and sore throat, mouth is making some clear phlegm. He denies chest pain or abdominal pain. No dizziness. He was complaining of from little diarrhea, he felt almost going to vomit this morning but did not. No urinary complaints. No weakness or numbness He denies smoking, alcohol or illicit drugs Vitals are stable and he is saturating 96% on room air. Labs were reviewed including unremarkable CBC except for mild lymphopenia at 0.7, INR is 1.0. Sodium is 124, carbon dioxide 17, creatinine 1.1, glucose 220 Liver enzymes not elevated. Troponin is high as 0.418, C-reactive protein 2.0. ProBNP is 4880 Coronavirus not detected. EKG showing normal sinus rhythm at 85 with first-degree AV block and incomplete right bundle branch block, no significant ST-T changes. Chest x-ray: Interstitial pulmonary edema with increased cardiomegaly In the emergency room patient was started on IV Lasix 40 mg every 8 hours and cardiology team were consulted. 07/17/2021 Patient breathing is better, he does not complain from jaw pain or neck pain anymore, he is breathing easier, less leg edema. Patient is continued on IV Lasix 40 mg twice daily, also he is on heparin drip His sodium is improved today to 1.7 however his creatinine went up to 1.4. Because of his worsening kidney function we hold his metformin and switch him to Amaryl 2 mg daily, patient informed of his uncontrolled diabetes as his hemoglobin A1c is a 42.6%. Echocardiogram showed ejection fraction of 30-35% with moderate mitral regurgitation, 2018 8 was 55-60% Patient possibly will go for cardiac cath tomorrow 07/18/2021 Patient feels better, his breathing is easier. He has no more jaw pain, leg swelling is significantly improved he has crepitationandonlyminimal. He has some wheezing during examination most likely secondary to his CHF, patient is nonsmoker with no history of COPD. He is hemodynamically stable, he is on room air. Creatinine is trending up 1.1, 1.4, and 1.58 today. However sodium significantly improved up to 133. His Lasix was switched to 40 mg by mouth daily. His glucose is controlled 136 and 142 after he was started on Amaryl today we will keep monitoring, metformin was held for his acute kidney injury. He has slight ejection fraction of 30-35% with moderate MR and he needs cardiac cath however it is on hold now to further evaluation for his kidney injury, most likely secondary to diuresis, nephrology team was consulted, renal ultrasound is pending. 81 mg 07/19/2021 Patient breathing is improved close to normal however he has some residual basal crepitation which is mild. Very minimal leg swelling. No much exertional dyspnea. And his diuretics are switched to oral dose again Lasix 40 mg daily His creatinine improved 1.3 from 1.8 yesterday. Glucose less than 150. After switching his metformin and to Amaryl 2 mg daily. Hemoglobin A1c is 8.6% Plan for him to go for cardiac cath today. Renal ultrasound showing no hydronephrosis. Tenderness on home dose of aspirin 81 mg, oral Lasix and metoprolol 07/20/2021 Today with minimal dyspnea however he still have bilateral basal crepitation and leg edema, he is saturating 95-96% on 2 L oxygen via nasal cannula. His creatinine slightly up to 1.5. Glucose controlled. Renal ultrasound showing no hydronephrosis. Cardiac cath yesterday showing severe triple coronary artery disease, referred to thoracic surgery been consulted for possible CABG 07/21/2021 Patient currently sitting in bed looks comfortable, no chest pain, no significant dyspnea. Using his incentive spirometry frequently. He is currently kept on heparin drip. Minimal leg swelling, mild basal crepitation. He is hemodynamically stable. He is saturating 97% on 2 L oxygen via nasal cannula. His sodium 132, creatinine improved to 1.28, glucose controlled while he is on Amaryl 2 mg. His metformin, metoprolol and lisinopril are on hold for hypertension acute kidney injury. Patient currently has been worked up for possible cardiac bypass surgery with cardiovascular surgery team on the case. 07/22/2021 Patient is going for cardiac bypass surgery today. This with no chest pain or dyspnea. Hemodynamically stable. Glucose controlled however it might be needed to be started on insulin drip. Most likely patient will go to the intensive care unit post procedure. We will follow up with him Objective - Vital Signs Vital signs: Vital Signs Temp 97.3 F L 07/22/21 06:33 Pulse 72 07/22/21 06:33 Resp 17 07/22/21 05:31 BP 114/68 07/22/21 06:33 Pulse Ox 95 07/22/21 06:33 Intake & Output 07/21/21 07/22/21 07/22/21 18:59 06:59 18:59 Intake Total 796.987 557.022 53 Output Total 1175 1275 Balance -378.013 -717.978 53 Weight 91 kg Intake: IV 100 53 Intake, IV Titration 196.987 217.022 Amount Heparin Sod,Pork in 0.45% 196.987 217.022 NaCl 25,000 unit In 0.45 % NaCl 1 250ml.bag @ 11. 198 UNITS/KG/HR 10 mls/hr IV .Q24H [facility] Rx#: [id number] Oral 600 240 Output: Urine 1175 1275 Other: Voiding Method Urinal Urinal # Voids 1 - Exam GENERAL: The patient is alert and oriented x3, not in any acute distress. Well developed, well nourished. HEENT: Pupils are round and equally reacting to light. EOMI. No scleral icterus. No conjunctival pallor. Normocephalic, atraumatic. No pharyngeal erythema. No thyromegaly. CARDIOVASCULAR: S1 and S2 present. No murmurs, rubs, or gallops. -PULMONARY: Chest is clear to auscultation, no wheezing . Bilateral basal crepitation ABDOMEN: Soft, nontender, nondistended, normoactive bowel sounds. No palpable organomegaly. MUSCULOSKELETAL: No joint swelling or deformity. -EXTREMITIES: No cyanosis, clubbing, . Bilateral pitting leg edema. NEUROLOGICAL: Gross neurological examination did not reveal any focal deficits. SKIN: No rashes. No petechiae - Labs CBC & Chem 7: 07/21/21 08:22 07/21/21 01:46 Labs: Abnormal Lab Results - Last 24 Hours (Table) 07/21/21 07/21/21 07/21/21 Range/Units 08:22 11:37 20:24 APTT (22.0-30.0) sec POC Glucose (mg/dL) 116 H 200 H (75-99) mg/dL Crossmatch See Detail 07/22/21 07/22/21 Range/Units 01:19 05:17 APTT 50.7 H (22.0-30.0) sec POC Glucose (mg/dL) 165 H (75-99) mg/dL Crossmatch Microbiology - Last 24 Hours (Table) 07/19/21 17:10 Nasal Screen MRSA/MSSA - Final Nasopharyngeal Swab Assessment and Plan Assessment: severe triple coronary artery diseas Acute systolic heart failure, , ischemic cardiomyopathy is suspected with ejection fraction of 30-35% None STEMI Acute kidney injury, suspected secondary to diuresis. Sore throat, improved, coronavirus is negative Hyponatremia Diabetes mellitus, With hyperglycemia upon admission . Hemoglobin A1c is 8.6% Hypertension Hyperlipidemia Plan: this is a pleasant 75 years old male who presents with possible acute CHF and high troponin. Cardiothoracic surgery been consulted for CABG on 07/22 Continue with oral Lasix and monitor creatinine and electrolytes Cardiology consult . Cartilage surfaces patient will need AICD open discharge Consult nephrology consult Continue with fluid restriction 1500 mL per day Hold metformin for worsening creatinine and start Amaryl. Nephrology consult Labs and medication were reviewed.. Continue same treatment. Continue with sym ptomatic treatment. Resume home medication. Monitor lytes and vitals. DVT and GI prophylaxis. Further recommendations depends on the clinical course of the patient DVT prophylaxis: Subcutaneous heparin GI Prophylaxis: Pepcid PT/OT: Pending Prognosis is guarded
[2021-07-22 12:37] LABS: ABG Base Excess 0.8 mmol/L; ABG Glucose Whole Blood 146 mg/dL (75-99); ABG HCO3 26 mmol/L (21-25); ABG Ionized Calcium 4.3 mg/dL (4.5-5.3); ABG Lactic Acid Whole Blood 1.5 mmol/L (0.5-1.6); ABG Oxygen Saturation 99.9 % (94-97); ABG PCO2 41 mmHg (35-45); ABG PH 7.41 (7.35-7.45); ABG PO2 223 mmHg (83-108); ABG Potassium Whole Blood 4.5 mmol/L (3.4-4.5); ABG Sodium Whole Blood 136 mmol/L (135-146); ABG TCO2 27 mmol/L (19-24)
[2021-07-22 13:21] LABS: ABG Base Excess 1.3 mmol/L; ABG Glucose Whole Blood 136 mg/dL (75-99); ABG HCO3 26 mmol/L (21-25); ABG Ionized Calcium 4.2 mg/dL (4.5-5.3); ABG Lactic Acid Whole Blood 1.7 mmol/L (0.5-1.6); ABG Oxygen Saturation 99.9 % (94-97); ABG PCO2 41 mmHg (35-45); ABG PH 7.41 (7.35-7.45); ABG PO2 326 mmHg (83-108); ABG Potassium Whole Blood 4.5 mmol/L (3.4-4.5); ABG Sodium Whole Blood 136 mmol/L (135-146); ABG TCO2 27 mmol/L (19-24)
[2021-07-22 13:53] LABS: ABG Base Excess 0.8 mmol/L; ABG Glucose Whole Blood 142 mg/dL (75-99); ABG HCO3 26 mmol/L (21-25); ABG Ionized Calcium 4.2 mg/dL (4.5-5.3); ABG PCO2 40 mmHg (35-45); ABG PH 7.41 (7.35-7.45); ABG PO2 378 mmHg (83-108); ABG Potassium Whole Blood 4.6 mmol/L (3.4-4.5); ABG Sodium Whole Blood 137 mmol/L (135-146); ABG TCO2 27 mmol/L (19-24)
[2021-07-22] MEDS ORDERED: SODIUM CHLORIDE 0.9% 50 ML with VASOPRESSIN 20 UNIT IVPB ONE ×2 (14:45)
[2021-07-22 14:56] LABS: ABG Hematocrit 24 % (34.0-46.0)
[2021-07-22 14:57] LABS: ABG Hematocrit 24 % (34.0-46.0)
[2021-07-22 14:57] LABS: ABG Hematocrit 23 % (34.0-46.0)
[2021-07-22 14:58] LABS: ABG Hematocrit 23 % (34.0-46.0)
[2021-07-22 14:59] LABS: ABG Hematocrit 23 % (34.0-46.0); ABG Lactic Acid Whole Blood 2.3 mmol/L (0.5-1.6)
[2021-07-22 15:05] LABS: ABG Base Excess -2.3 mmol/L; ABG Glucose Whole Blood 161 mg/dL (75-99); ABG HCO3 23 mmol/L (21-25); ABG Ionized Calcium 5.2 mg/dL (4.5-5.3); ABG Oxygen Saturation 91.5 % (94-97); ABG PCO2 38 mmHg (35-45); ABG PH 7.39 (7.35-7.45); ABG PO2 64 mmHg (83-108); ABG Sodium Whole Blood 138 mmol/L (135-146); ABG TCO2 24 mmol/L (19-24)
[2021-07-22 15:09] LABS: ABG Lactic Acid Whole Blood 3.6 mmol/L (0.5-1.6)
[2021-07-22 15:10] LABS: ABG Hematocrit 21 % (34.0-46.0)
[2021-07-22] MEDS: MUPIROCIN 2% OINT 22 GM TUBE NASAL SCH (15:32)
[2021-07-22 15:41] LABS: ABG Base Excess 1.8 mmol/L; ABG Glucose Whole Blood 119 mg/dL (75-99); ABG HCO3 26 mmol/L (21-25); ABG Ionized Calcium 4.7 mg/dL (4.5-5.3); ABG Oxygen Saturation 92.5 % (94-97); ABG PCO2 38 mmHg (35-45); ABG PH 7.44 (7.35-7.45); ABG Potassium Whole Blood 3.6 mmol/L (3.4-4.5); ABG Sodium Whole Blood 141 mmol/L (135-146); ABG TCO2 27 mmol/L (19-24)
[2021-07-22 15:56] LABS: ABG Hematocrit 23 % (34.0-46.0); ABG Lactic Acid Whole Blood 3.3 mmol/L (0.5-1.6); ABG PO2 59 mmHg (83-108)
[2021-07-22] MEDS ORDERED: IPRATROPIUM-ALBUTEROL 3 ML NEB INHALATION PRN (16:00)
[2021-07-22] MEDS: IPRATROPIUM-ALBUTEROL 3 ML NEB INHALATION SCH ×4 (16:00→21:17)
[2021-07-22] MEDS ORDERED: METOCLOPRAMIDE 5 MG/ML 2 ML VIAL IVP PRN (16:00)
[2021-07-22] MEDS ORDERED: Magnesium Replacement Protocol 1 EACH MISC MISCELLANE PRN (16:00)
[2021-07-22] MEDS ORDERED: ONDANSETRON 4 MG/2 ML VIAL IVP PRN (16:00)
[2021-07-22] MEDS ORDERED: Phosphorus Replacement Protoco 1 EACH MISC MISCELLANE PRN (16:00)
[2021-07-22] MEDS ORDERED: Potassium Replacement Protocol 1 EACH MISC MISCELLANE PRN ×2 (16:00→18:58)
[2021-07-22] MEDS ORDERED: MORPHINE SULFATE 2 MG/ML SYRINGE IVP PRN (16:00)
[2021-07-22] MEDS ORDERED: CALCIUM GLUCONATE 2 GM in SODIUM CHLORIDE 0.9% 100 ML IVPB PRN (16:00)
[2021-07-22] MEDS ORDERED: DEXMEDETOMIDINE/0.9% NACL(PMX) 400 MCG in EMPTY BAG 1 BAG IV SCH (16:00)
[2021-07-22] MEDS ORDERED: SODIUM CHLORIDE 0.9% 50 ML with VASOPRESSIN 20 UNIT IVPB SCH ×2 (16:00)
[2021-07-22] MEDS ORDERED: hydrALAZINE HCL 20 MG/ML 1 ML VIAL IVP PRN (16:00)
[2021-07-22] MEDS ORDERED: BENZOCAINE/MENTHOL LOZENG 1 EACH LOZENGE MUCOUS MEM PRN (16:00)
[2021-07-22] MEDS: AMIODARONE 450 MG in DEXTROSE 5% IN WATER 250 ML IV SCH ×2 (16:04)
[2021-07-22] MEDS: NOREPINEPHRINE 4 MG in SODIUM CHLORIDE 0.9% 250 ML IV SCH (16:15)
[2021-07-22] MEDS: MILRINONE-D5W PMX 20 MG in DEXTROSE/WATER 1 100ML.BAG IV SCH (16:15)
[2021-07-22] MEDS: INSULIN REGULAR 100 UNIT in SODIUM CHLORIDE 0.9% 100 ML IV SCH (16:15)
[2021-07-22] MEDS: ALBUMIN HUMAN 5% 250 ML in EMPTY BAG 1 BAG IVPB PRN ×4 (16:26→18:25)
[2021-07-22 16:46] LABS: Glucose,Whole Blood 100 mg/dL (75-99)
[2021-07-22 16:49] LABS: ABG Base Excess 1.4 mmol/L; ABG HCO3 25 mmol/L (21-25); ABG Oxygen Saturation 96.5 % (94-97); ABG PCO2 37 mmHg (35-45); ABG PH 7.45 (7.35-7.45); ABG PO2 76 mmHg (83-108); ABG TCO2 27 mmol/L (19-24)
[2021-07-22 16:53] LABS: Basophils % (A) 0 %; Eosinophils % (A) 1 %; HCT 23.3 % (39.0-53.0); Lymphocytes # (A) 0.7 k/uL (1.0-4.8); Lymphocytes % (A) 15 %; MCH 32.1 pg (25.0-35.0); MCHC 32.4 g/dL (31.0-37.0); MCV 99.1 fL (80.0-100.0); Mean Platelet Volume 9.9; Monocytes # (A) 0.4 k/uL (0-1.0); Monocytes % (A) 8 %; Neutrophils # (A) 3.4 k/uL (1.3-7.7); Neutrophils % (A) 75 %; RBC 2.35 m/uL (4.30-5.90); RDW 13.7 % (11.5-15.5); WBC 4.6 k/uL (3.8-10.6)
--- NOTE | 2021-07-22 16:55 | XR ---
EXAMINATION TYPE: XR chest 1V portable DATE OF EXAM: 07/22/2021 4:41 PM COMPARISON:Chest radiographs from same day CLINICAL INDICATION:Male, 75 years old with history of Post Operative Cardiac Surgery; TECHNIQUE: Frontal view of the chest. FINDINGS: Patient is rotated. Lungs/Pleura: Consolidation changes changes projecting over the heart are present. No evidence of pne umothorax or pleural effusion. Pulmonary vascularity: Pulmonary vascular congestion. Heart/mediastinum: Cardiomediastinal silhouette is enlarged and stable. Musculoskeletal: No acute osseous pathology. Lines/Tubes: Endotracheal tube with distal tip at the level of the ezra. Nasogastric tube with its distal tip and side-port projecting under the diaphragm. Bilateral thoracotomy tubes are present without evidence of pneumothorax. Right IJ wedge pressured catheter tip terminating left of midline. Patient is slightly rotated. IMPRESSION: 1. Endotracheal tube at the level of the ezra consider retraction 4 cm for optimal placement. 2. Right IJ suspected wedge pressure device with tip projecting over the heart. Distal tip is not acr oss midline however the patient is rotated. Consider follow-up radiograph if clinically warranted and /or advancement. 3. Bilateral thoracotomy tubes without evidence of pneumothorax. 4. Consolidation over the heart correlate for atelectasis/airspace disease. 5. Vascular congestion with cardiomegaly consistent with congestive heart failure changes.
[2021-07-22 17:02] LABS: INR 1.4 (<1.2); Partial Thromboplastin Time 38.6 sec (22.0-30.0); Prothrombin Time 14.2 sec (9.0-12.0)
[2021-07-22 17:07] LABS: ALT 16 U/L (4-49); AST 39 U/L (17-59); African American GFR (CKD) 73 (>60 ml/min/1.73 sqM); Albumin 2.7 g/dL (3.5-5.0); Alkaline Phosphatase <20 U/L (38-126); Anion Gap 6 mmol/L; Blood Urea Nitrogen 21 mg/dL (9-20); Calcium 8.4 mg/dL (8.4-10.2); Carbon Dioxide 24 mmol/L (22-30); Chloride 106 mmol/L (98-107); Glucose 89 mg/dL (74-99); Magnesium 2.4 mg/dL (1.6-2.3); Non-African American GFR(CKD) 63 (>60 ml/min/1.73 sqM); Potassium 3.6 mmol/L (3.5-5.1); Sodium 136 mmol/L (137-145); Total Bilirubin 0.8 mg/dL (0.2-1.3); Total Protein 4.3 g/dL (6.3-8.2)
--- NOTE | 2021-07-22 17:07 | P.PN ---
Subjective Progress Note Date: 07/22/21 On 07/22/2021, patient is seen in intensive care unit following his surgery, patient had a aortic valve replacement with the #23 is parous pericardial bioprosthetic valve, and a three-vessel coronary artery bypass grafting with BAIN to the LAD, SVG to the OM 2 and OM 3, left atrial appendage ligation. Tomasz lopez just arrived to the intensive care unit, intubated, and sedated, on assist-control mode of ventilation with a rate of 16, tidal volume of 500 FiO2 of sent and PEEP of 10. She is currently on 0.9 normal saline at a rate of 50 ML per hour, he is on norepinephrine at 9 mics per minute, vasopressin at 0.02 units/min, primacore at 0.3 mics per kilo per minute, Diprivan and is at 10 mics per kilo per minute. Hemodynamically patient is currently being paced at AAI mode with a rate of 80. Currently blood pressure is 139/48, PA pressures 31/20, CVP is 14, cardiac output is 4.2, cardiac index is 2.0. Patient has 4 chest tubes and mediastinal, 1 right pleural and one left pleural chest tubes, mediastinal chest tubes are connected to the same Pleur-evac, and there is 200 mL of serosanguineous output, left pleural chest tube has 140 mL of sanguinous output and a chest tube with 140 mL of sanguinous output. No air leak. Catheter is in place, and patient is making adequate urine output. Chest x-ray has been reviewed, tube to low intermittent suction. Objective - Vital Signs Vital signs: Vital Signs Temp 97.3 F L 07/22/21 06:33 Pulse 72 07/22/21 06:33 Resp 17 07/22/21 05:31 BP 114/68 07/22/21 06:33 Pulse Ox 95 07/22/21 06:33 Intake & Output 07/21/21 07/22/21 07/22/21 18:59 06:59 18:59 Intake Total 796.987 557.022 53 Output Total 1175 1275 1690 Balance -378.013 -847.977 -1637 Weight 91 kg Intake: IV 100 53 Intake, IV Titration 196.987 217.022 Amount Heparin Sod,Pork in 0.45% 196.987 217.022 NaCl 25,000 unit In 0.45 % NaCl 1 250ml.bag @ 11. 198 UNITS/KG/HR 10 mls/hr IV .Q24H [facility] Rx#: [id number] Oral 600 240 Output: Urine 1175 1275 490 Estimated Blood Loss 1200 Other: Voiding Method Urinal Urinal # Voids 1 - Exam GENERAL EXAM: Sedated and intubated 75 yo male on AC mode vent comfortable in no apparent distress. HEAD: Normocephalic/atraumatic. EYES: Normal reaction of pupils, equal size. Conjunctiva pink, sclera white. NOSE: Clear with pink turbinates. THROAT: No erythema or exudates. NECK: No masses, no JVD, no thyroid enlargement, no adenopathy. CHEST: No chest wall deformity. Symmetrical expansion. 4 chest tubes, 2 MS c hest tubes, right pleural and left pleural chest tubes, no airleak, moderate sanguineous output LUNGS: Equal air entry with no crackles, wheeze, rhonchi or dullness. CVS: Regular rate and rhythm, normal S1 and S2, no gallops, no murmurs, no rubs ABDOMEN: Soft, nontender. No hepatosplenomegaly, normal bowel sounds, no guarding or rigidity. EXTREMITIES: No clubbing, no edema, no cyanosis, 2+ pulses and upper and lower extremities. MUSCULOSKELETAL: Muscle strength and tone normal. SPINE: No scoliosis or deformity SKIN: No rashes CENTRAL NERVOUS SYSTEM: Sedated No focal deficits, tone is normal in all 4 extremities. - Labs CBC & Chem 7: 07/21/21 08:22 07/21/21 01:46 Labs: Abnormal Lab Results - Last 24 Hours (Table) 07/21/21 07/21/21 07/22/21 Range/Units 08:22 20:24 01:19 APTT 50.7 H (22.0-30.0) sec ABG pO2 (83-108) mmHg ABG HCO3 (21-25) mmol/L ABG Total CO2 (19-24) mmol/L ABG O2 Saturation (94-97) % ABG Hematocrit (34.0-46.0) % ABG Sodium (135-146) mmol/L ABG Potassium (3.4-4.5) mmol/L ABG Ionized Calcium (4.5-5.3) mg/dL ABG Glucose (75-99) mg/dL ABG Lactic Acid (0.5-1.6) mmol/L Hemoglobin (13.0-17.5) gm/dL POC Glucose (mg/dL) 200 H (75-99) mg/dL Arterial Blood Potassium (3.4-4.5) mmol/L Arterial Blood Glucose (75-99) mg/dL Crossmatch See Detail 07/22/21 07/22/21 07/22/21 Range/Units 05:17 08:26 10:27 APTT (22.0-30.0) sec ABG pO2 240 H (83-108) mmHg ABG HCO3 26 H (21-25) mmol/L ABG Total CO2 27 H 26 H (19-24) mmol/L ABG O2 Saturation 98.1 H 99.6 H (94-97) % ABG Hematocrit 31 L (34.0-46.0) % ABG Sodium (135-146) mmol/L ABG Potassium (3.4-4.5) mmol/L ABG Ionized Calcium (4.5-5.3) mg/dL ABG Glucose 160 H 170 H (75-99) mg/dL ABG Lactic Acid (0.5-1.6) mmol/L Hemoglobin 11.7 L 10.2 L (13.0-17.5) gm/dL POC Glucose (mg/dL) 165 H (75-99) mg/dL Arterial Blood Potassium (3.4-4.5) mmol/L Arterial Blood Glucose 160 H 170 H (75-99) mg/dL Crossmatch 07/22/21 07/22/21 07/22/21 Range/Units 11:20 12:08 12:37 APTT (22.0-30.0) sec ABG pO2 394 H 235 H 223 H (83-108) mmHg ABG HCO3 26 H (21-25) mmol/L ABG Total CO2 25 H 26 H 27 H (19-24) mmol/L ABG O2 Saturation 100.0 H 99.7 H 99.9 H (94-97) % ABG Hematocrit 24 L 24 L 23 L (34.0-46.0) % ABG Sodium 134 L (135-146) mmol/L ABG Potassium (3.4-4.5) mmol/L ABG Ionized Calcium 4.2 L 4.3 L 4.3 L (4.5-5.3) mg/dL ABG Glucose 160 H 147 H 146 H (75-99) mg/dL ABG Lactic Acid (0.5-1.6) mmol/L Hemoglobin 7.9 L 7.8 L 7.6 L (13.0-17.5) gm/dL POC Glucose (mg/dL) (75-99) mg/dL Arterial Blood Potassium (3.4-4.5) mmol/L Arterial Blood Glucose 160 H 147 H 146 H (75-99) mg/dL Crossmatch 07/22/21 07/22/21 07/22/21 Range/Units 13:20 13:52 15:04 APTT (22.0-30.0) sec ABG pO2 326 H 378 H 64 L (83-108) mmHg ABG HCO3 26 H 26 H (21-25) mmol/L ABG Total CO2 27 H 27 H (19-24) mmol/L ABG O2 Saturation 99.9 H 100.0 H 91.5 L (94-97) % ABG Hematocrit 23 L 23 L 21 L (34.0-46.0) % ABG Sodium (135-146) mmol/L ABG Potassium 4.6 H (3.4-4.5) mmol/L ABG Ionized Calcium 4.2 L 4.2 L (4.5-5.3) mg/dL ABG Glucose 136 H 142 H 161 H (75-99) mg/dL ABG Lactic Acid 1.7 H 2.3 H* 3.6 H* (0.5-1.6) mmol/L Hemoglobin 7.5 L 7.3 L 7.0 L* (13.0-17.5) gm/dL POC Glucose (mg/dL) (75-99) mg/dL Arterial Blood Potassium 4.6 H (3.4-4.5) mmol/L Arterial Blood Glucose 136 H 142 H 161 H (75-99) mg/dL Crossmatch 07/22/21 07/22/21 07/22/21 Range/Units 15:40 16:35 16:47 APTT (22.0-30.0) sec ABG pO2 59 L* 76 L (83-108) mmHg ABG HCO3 26 H (21-25) mmol/L ABG Total CO2 27 H 27 H (19-24) mmol/L ABG O2 Saturation 92.5 L (94-97) % ABG Hematocrit 23 L (34.0-46.0) % ABG Sodium (135-146) mmol/L ABG Potassium (3.4-4.5) mmol/L ABG Ionized Calcium (4.5-5.3) mg/dL ABG Glucose 119 H (75-99) mg/dL ABG Lactic Acid 3.3 H* (0.5-1.6) mmol/L Hemoglobin 7.6 L (13.0-17.5) gm/dL POC Glucose (mg/dL) 100 H (75-99) mg/dL Arterial Blood Potassium (3.4-4.5) mmol/L Arterial Blood Glucose 119 H (75-99) mg/dL Crossmatch Assessment and Plan Plan: Assessment: Assessment: #1. Acute non-ST segment elevated myocardial infarction and multivessel coronary artery disease and severe aortic valve stenosis, status post three- vessel coronary artery bypass grafting with BAIN to the LAD, SVG to the OM 2 and OM 3, and aortic valve replacement on 07/22/2021 #2. Acute systolic congestive heart failure with an ejection fraction of 30- 35%. His preop CT chest showed bilateral pleural effusions with cardiomegaly #3. Routine postoperative ventilator management #4. Hypotension, multifactorial, related to postoperative bleeding, and poor ejection fraction currently on small dose of vasopressors in the form of norepinephrine at 9 mics per minute, vasopressin is at 0.02 units per minute, and Primacor #5. Acute hypoxic respiratory failure secondary to pulmonary edema. Currently intubated and the postoperative period, currently on FiO2 of 80% and PEEP of 10. His preop FEV1 was 72% of predicted #6. Hypertension #7. Hyperlipidemia #8. Diabetes mellitus type 2 #9. Acute kidney injury likely cardiorenal and his kidney function has been closely monitored Plan: Increase resp rate to 20 Awaiting post-op ABG Continue close hemodynamic monitoring Continues on vasopressors Monitor amount of chest tube bleeding, Awaitin labs Continue Duoneb q4h around the clock Monitor urine output Will continue to closely follow with CT surgery I performed a history & physical examination of the patient and discussed their management with my nurse practitioner, Marilu Jiménez. I reviewed the nurse practitioner's note and agree with the documented findings and plan of care. Emily ng sounds are positive for diffuse wheezes throughout the lung martins. The findings and the impression was discussed with the patient. I attest to the documentation by the nurse practitioner. Time with Patient: Greater than 30
[2021-07-22 17:14] LABS: HGB 7.6 gm/dL (13.0-17.5)
[2021-07-22] MEDS: SODIUM CHLORIDE 0.9% 1,000 ML IV SCH (17:18)
[2021-07-22] MEDS: SODIUM CHLORIDE 0.9% 50 ML with VASOPRESSIN 20 UNIT IVPB SCH ×2 (17:20)
[2021-07-22 17:33] LABS: Platelet Count 83 k/uL (150-450)
[2021-07-22 17:58] LABS: Glucose,Whole Blood 108 mg/dL (75-99)
[2021-07-22 18:53] LABS: Glucose,Whole Blood 134 mg/dL (75-99)
[2021-07-22] MEDS: HEPARIN SODIUM,PORCINE/PF 5,000 UNIT/0.5 ML SYRINGE SQ SCH (19:37)
[2021-07-22] MEDS: ACETAMINOPHEN IV (For NPO) 1,000 MG in EMPTY BAG 1 BAG IVPB SCH ×2 (19:39→23:45)
[2021-07-22 19:47] LABS: Glucose,Whole Blood 134 mg/dL (75-99)
[2021-07-22] MEDS: POTASSIUM CHLORIDE 20 MEQ in WATER FOR INJECTION 1 100ML.BAG IVPB SCH ×2 (19:57→22:36)
[2021-07-22 20:05] LABS: HCT 22.5 % (39.0-53.0); HGB 7.5 gm/dL (13.0-17.5); MCHC 33.2 g/dL (31.0-37.0); MCV 99.5 fL (80.0-100.0); Mean Platelet Volume 8.4; Platelet Count 104 k/uL (150-450); RBC 2.26 m/uL (4.30-5.90); RDW 13.8 % (11.5-15.5); WBC 6.4 k/uL (3.8-10.6)
[2021-07-22 20:32] LABS: Band Neutrophils % 7 %; Lymphocytes # (M) 0.38 k/uL (1.0-4.8); Monocytes # (M) 0.64 k/uL (0-1.0); Neutrophils % (M) 77 %; Nucleated Red Blood Cells 0 /100 WBC (0-0); Total Cells Counted 100
[2021-07-22 21:12] LABS: Glucose,Whole Blood 140 mg/dL (75-99)
[2021-07-22 22:04] LABS: ABG Base Excess -0.6 mmol/L; ABG HCO3 23 mmol/L (21-25); ABG Oxygen Saturation 98.7 % (94-97); ABG PCO2 33 mmHg (35-45); ABG PH 7.46 (7.35-7.45); ABG PO2 96 mmHg (83-108); ABG TCO2 24 mmol/L (19-24); Allen Test Performed? Yes
[2021-07-22 22:43] LABS: Glucose,Whole Blood 149 mg/dL (75-99)
--- NOTE | 2021-07-22 22:50 | OP ---
OPERATIVE REPORT DATE OF THE SURGERY: 07/22/2021. SURGEON: Dr. Chris Bingham. STORE CLERK CHECKER: Mckayla Sorensen and Lino Francois. PREOPERATIVE DIAGNOSES: Congestive heart failure with triple-vessel coronary artery disease, moderate aortic stenosis, [id number] mitral valve regurgitation, preoperative atrial fibrillation the night before surgery, hypertension, hyperlipidemia, diabetes mellitus. POSTOPERATIVE DIAGNOSES: Congestive heart failure with triple-vessel coronary artery disease, moderate aortic stenosis, [id number] mitral valve regurgitation, preoperative atrial fibrillation the night before surgery, hypertension, hyperlipidemia, diabetes mellitus. 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 PROCEDURE PERFORMED: 1. Triple-vessel coronary artery bypass grafting using the left internal mammary artery to the left anterior descending artery, reverse saphenous vein graft from the aorta to the second obtuse marginal artery, reverse saphenous vein graft from the aorta to the third obtuse marginal artery. 2. Aortic valve replacement using a 23 mm pericardial bioprosthesis Inspiris. 3. Bilateral pulmonary vein isolation using bipolar radiofrequency energy from AtriCure. 4. Exclusion of the left atrial appendage using a 40 mm AtriClip. 5. Graft flow measurements using the Medi-Stim system. 6. Intraoperative transesophageal echocardiogram and epiaortic scanning. INDICATION FOR SURGERY: The patient is a 75-year-old gentleman with the above comorbidities who presented essentially with a history of around 3-4 weeks of progressive dyspnea on exertion and lower extremity swelling and fluid overload. The patient was optimized medically with diuresis and a good response and had a cardiac catheterization that showed severe proximal LAD disease, circumflex disease that is a dominant system with a large second obtuse marginal artery and severe stenosis after that takeoff also leading into a posterolateral branch and 2 small and posterior branches. His 2D echo initially had showed moderate mitral valve regurgitation and a mean gradient across the aortic valve which seems to be moderately calcified of around 10 mmHg. We repeated a DELVIS around 3-4 days after optimization and that showed mild mitral valve regurgitation and decreased excursion of the aortic valve that is moderately calcified, however, with a mean of around also 10 mmHg and ejection fraction estimated at around 30%. Discussion followed and decision was made to proceed with coronary artery bypass grafting and likely aortic valve replacement as the patient mean gradient was 10 mm three years ago when the LV was normal and were expected to be higher at this point. I did not want a submit him to a dobutamine echo in view of his advanced coronary disease. His mitral would be checked by DELVIS, but does not seem to be dysfunctional to the point where we need to repair it. The night before surgery the patient went into atrial fibrillation and converted with amiodarone drip. We will be combining bilateral pulmonary vein isolation and exclusion of his left atrial appendage. The STS risk which is at least moderate in this gentleman was discussed with him and his . They understood and agreed to proceed. DESCRIPTION OF THE PROCEDURE: The patient in supine position. Right internal jugular [place]-Adalberto catheter and a right radial arterial line were placed. Was brought to the operating room. Cardiac index was 1.7. PA pressure was 70/35. However, his systolic blood pressure was around 175 systolic. After induction of general anesthesia, his mean pressure was around 90 and his PA pressures were around 44/20. The index was again 1.7-1.9 in range. A Nava catheter was inserted. The chest, abdomen and both lower extremities were prepped and draped using ChloraPrep. Ioban was used to cover the skin. Patient received 2 g of cefazolin intravenously. Transesophageal echocardiogram confirmed the preoperative finding of mild to moderate mitral valve regurgitation with a mean pressure that was around 90 and moderate to severe left ventricle dysfunction as well as a moderately calcific aortic valve with diminished excursion at least moderately stenotic. There was no tricuspid valve regurgitation and the right ventricular function was acceptable. Midline sternotomy was performed and Will was used. The left hemisternum was elevated. The left internal mammary artery was harvested in a somewhat skeletonized fashion. The left pleura was opened and we aspirated around 300 mL of serous fluid from the left cavity and a 19-Bermudian Michael drain was used to drain the left pleura. The patient was given 5000 units of heparin and the mammary artery was clipped distally and transected had an excellent pulsatile flow in it and was around 2 mm in diameter. In the same setting, initially, the left greater saphenous vein was harvested endoscopically from groin to above ankle level after administration of 1500 units of heparin. The branches were tied. We had what seemed to be a good segment at the level of the thigh, but the rest of the vein was suboptimal. For that reason, we proceeded harvesting the right greater saphenous vein from groin to just below knee level. At this level, we had a smooth segment however slightly on the small side around 3- 3.5 mm in diameter and that would be used for bypass. Both leg incisions were closed over a drain. To mention that we did not use the radial artery and the patient had a very positive modified Dom's test on the left side. Ankeney retractor was used. Mediastinal fat was transected between 2 ties and epiaortic scanning revealed no protruding atheroma in the ascending aorta and we had a visible posterior calcific plaque in the mid ascending aorta that was seen on the CAT scan of the chest that we performed preoperatively. Pericardium was opened in an inverted T-fashion and a pericardial cradle was created. Findings included a mildly dilated aorta that was soft and a large fatty heart with palpable diffuse calcific coronary artery disease. After systemic heparinization, after placement of respective pledgeted pursestring, the aortic cannulation, the proximal arch with a 21-Bermudian soft flow cannula and venous cannulation via the right atrial appendage with a 3 stage 29/37 [place] cannula was performed. Antegrade as well as retrograde cardioplegia catheters were placed. Cardiopulmonary bypass was initiated. The patient's temperature was allowed to drift down to 34 degrees Celsius. With the heart empty and beating, we looked at the target. The LAD had diffuse disease in it. However, there was 1 spot between 2 calcific plaque in its mid to distal aspect that would be the site for bypass. The first obtuse marginal artery was a small vessel. The second obtuse marginal artery which was the main segment target was identified. The posterolateral branch over the third obtuse marginal artery was fortunately found deep in the anterior pericardial fat and was reasonable bypass target. As predicted, the 2 small posterior descending arteries coming from the left side were not bypassable per se. However, there was good communication with that third obtuse marginal artery as seen on cardiac catheterization. At this point, before clamping the aorta, we proceeded at encircling the right- sided pulmonary vein and performed 3 ablation using a bipolar radiofrequency clamp by AtriCure. Subsequently, the aorta was clamped and during aortic clamping myocardial contraction was achieved with initial dose of around 900 mL of antegrade cold blood cardioplegia followed by 500 mL of retrograde cold blood cardioplegia. All subsequent doses were given retrograde as well as through the initially constructed vein graft to that third obtuse marginal artery or posterolateral branch again supplying the whole posterior inferior wall. At this point, we completed the left-sided pulmonary vein isolation. We incised the ligament of Harpal using the Bovie, and applied 3 radiofrequency bipolar ablation. The left atrial appendage was excluded using a 40 mm AtriClip deployed at its base. The first distal anastomosis was between a segment of vein that was smooth a bit small around 3.5 mm diameter and at the 1.5 mm thin-walled third obtuse marginal artery using Prolene 7-0 in continuous fashion. That vein was routed on the right side of the heart. The second distal anastomosis was with a better segment of vein and the larger caliber of around 4 mm and thin-walled and the 2 mm second obtuse marginal artery using Prolene 7-0 in continuous fashion. The third and last distal anastomosis were between the left internal mammary artery that passed in a groove in the left pleura pericardial fat and anastomosed to the mid to distal aspect of the left anterior descending artery between 2 calcific plaque using Prolene 7-0 in continuous fashion. To mention that the antral apical wall at least in its mid to apical segment was thinned out, chronically infarcted. At this point, attention was moved at performing the aortic valve replacement part. The aorta was opened in a transverse fashion around 1 cm above the sinotubular junction. Exploration revealed moderately calcific aortic valve with main calcification between the right and the non coronary cusps as well as at the level of the commissure of the left and non coronary cusps extending down into the aorta mitral membrane. That valve was excised and the anulus was debrided to a pliable anulus. Some of the calcium into the aorta mitral membrane was also removed. Thorough irrigation with 500 mL of cold saline followed. Subsequently, we placed a total of 17 Tycron 2-0 sutures in a horizontal mattress fashion with pledget on the ventricular side. The anulus was sized to a 23 mm pericardial prosthesis which was brought into the field and all the suture passed symmetrically into its cuff. It seated nicely in a supra-annular position. The needles were cut and the suture tied using the cor knot device. The left main ostium was totally clear as well as the right coronary, which we know is actually diminutive and proximally occluded. Thorough irrigation 1 more time followed. Subsequently, the aortotomy was closed using Prolene 4-0 pledgeted on each corner with the first layer in a horizontal mattress fashion and the second layer in an over and over technique. At this point, rewarming was started as we punched out 2 buttons of the ascending aorta and performed the 2 proximal anastomosis of the 2 vein grafts using Prolene 7-0 in continuous fashion. The patient was loaded with Primacor. He received magnesium and lidocaine. He was placed in Trendelenburg position and de-airing maneuvers were followed. There was no evidence of flow going from the aorta to the ventricle across the aortic valve ruling out any significant paravalvular leak. The aorta was unclamped and patient regained initially a spontaneous escape rhythm. Two monopolar atrial pacing wires were affixed to the respective pursing of the right atrium and 1 bipolar ventricular pacing wire was driven via the posterior aspect of the left ventricle itself. After around 20 minutes of reperfusion and after ensuring good signal in all the graft using the Medi-Stim system and we were able to wean off cardiac bypass guided by the DELVIS for adequate de-airing. Using a Primacor at 0.3 mics per kg per minute, Levophed as well as low-dose vasopressin. Cardiac index was 2.4. LV function appeared to be slightly better. MR was mild. The aortic valve was functioning well with no paravalvular leak. At this point, we proceeded at a formal graft flow measurements. 4 mm probe was selected and the flow into the left internal mammary artery to left anterior descending artery was 43 mL/minute, pulsatility index of 1.1 and diastolic filling of 65%. The flow into the vein graft to the third obtuse marginal artery was 107 mL/minute, pulsatility index of 1.2, diastolic filling of 63%. The flow into the vein graft to the second obtuse marginal artery was 58 mL/minute, pulsatility index of 1.8 diastolic filling of 72% all showing excellent functioning graft. With that, all pump suckers were stopped. Test dose followed by full dose protamine was given. Decannulation followed. The venous cannulation site was reinforced with a pledgeted 4-0 Prolene. Two 19-Bermudian Michael drains were left substernally. The pericardial fat was approximated over the aorta and the proximal grafts. There was not much of fat to cover the right ventricle, which appeared to be distended. However, the hemodynamics were acceptable with a PA pressure of around 40/20 and cardiac index that was hovering around 2.2 and mean arterial pressure of around 75 with the above support. After ensuring adequate hemostasis and hemodynamic and after correct sponge, instrument, and needle count, the sternum was closed using 6 [id number] pineal cable after interposing fibular between the sternal edges. Thorough irrigation of cefazolin followed. The rest of the closure proceeded in layers. Skin glue was applied. Patient did not receive any blood bank product but received 450 mL of Cell Saver blood. He was transferred to the ICU on the above support, atrially paced at 80 for optimal hemodynamics. MMODL / IJN: [id number] / MTDD
[2021-07-22 23:12] LABS: Basophils % (A) 0 %; Eosinophils % (A) 0 %; HCT 22.3 % (39.0-53.0); HGB 7.4 gm/dL (13.0-17.5); Lymphocytes # (A) 0.6 k/uL (1.0-4.8); Lymphocytes % (A) 9 %; MCH 32.5 pg (25.0-35.0); MCHC 33.4 g/dL (31.0-37.0); MCV 97.4 fL (80.0-100.0); Mean Platelet Volume 9.6; Monocytes # (A) 0.7 k/uL (0-1.0); Monocytes % (A) 11 %; Neutrophils # (A) 5.2 k/uL (1.3-7.7); Neutrophils % (A) 78 %; Platelet Count 102 k/uL (150-450); RBC 2.29 m/uL (4.30-5.90); RDW 13.3 % (11.5-15.5); WBC 6.7 k/uL (3.8-10.6)
[2021-07-22 23:59] LABS: Glucose,Whole Blood 147 mg/dL (75-99)
[2021-07-23] MEDS: POTASSIUM CHLORIDE 20 MEQ in WATER FOR INJECTION 1 100ML.BAG IVPB SCH (01:50)
[2021-07-23 01:52] LABS: Glucose,Whole Blood 157 mg/dL (75-99)
[2021-07-23] MEDS: HEPARIN SODIUM,PORCINE/PF 5,000 UNIT/0.5 ML SYRINGE SQ SCH ×3 (01:56→17:37)
[2021-07-23 02:49] LABS: ABG Base Excess -3.6 mmol/L; ABG HCO3 21 mmol/L (21-25); ABG Oxygen Saturation 97.2 % (94-97); ABG PCO2 30 mmHg (35-45); ABG PH 7.44 (7.35-7.45); ABG PO2 82 mmHg (83-108); ABG TCO2 22 mmol/L (19-24); Allen Test Performed? Yes
[2021-07-23 03:21] LABS: Glucose,Whole Blood 170 mg/dL (75-99)
[2021-07-23] MEDS: NOREPINEPHRINE 4 MG in SODIUM CHLORIDE 0.9% 250 ML IV SCH ×3 (03:22→23:48)
[2021-07-23] MEDS: MILRINONE-D5W PMX 20 MG in DEXTROSE/WATER 1 100ML.BAG IV SCH ×2 (03:22→23:49)
[2021-07-23 03:43] LABS: Basophils % (A) 0 %; Eosinophils % (A) 0 %; HGB 7.3 gm/dL (13.0-17.5); Lymphocytes # (A) 0.5 k/uL (1.0-4.8); Lymphocytes % (A) 9 %; MCH 31.7 pg (25.0-35.0); MCHC 31.9 g/dL (31.0-37.0); MCV 99.5 fL (80.0-100.0); Mean Platelet Volume 9.7; Monocytes # (A) 0.6 k/uL (0-1.0); Monocytes % (A) 10 %; Neutrophils % (A) 79 %; Platelet Count 108 k/uL (150-450); RBC 2.31 m/uL (4.30-5.90); RDW 13.9 % (11.5-15.5); WBC 6.3 k/uL (3.8-10.6)
[2021-07-23 03:49] LABS: Ionized Calcium 4.7 mg/dL (4.5-5.3)
[2021-07-23 03:59] LABS: Calcium 8.1 mg/dL (8.4-10.2); Magnesium 2.1 mg/dL (1.6-2.3); Total Bilirubin 1.1 mg/dL (0.2-1.3); Total Protein 4.5 g/dL (6.3-8.2)
[2021-07-23 04:06] LABS: Potassium 6.3 mmol/L (3.5-5.1)
[2021-07-23 04:22] LABS: Glucose,Whole Blood 167 mg/dL (75-99)
[2021-07-23] MEDS ORDERED: DEXTROSE 50% SYRINGE 50 ML IVP STA (05:10)
[2021-07-23] MEDS ORDERED: INSULIN REGULAR 100 UNIT/ML VIAL (IV) IV ONE (05:11)
[2021-07-23 05:41] LABS: Glucose,Whole Blood 126 mg/dL (75-99)
[2021-07-23] MEDS ORDERED: HYDROcodone/APAP 5-325MG 1 EACH TAB PO PRN ×2 (05:59→06:00)
[2021-07-23] MEDS: ALBUMIN HUMAN 5% 250 ML in EMPTY BAG 1 BAG IVPB PRN (06:31)
--- NOTE | 2021-07-23 06:43 | XR ---
EXAMINATION TYPE: XR chest 1V portable DATE OF EXAM: 07/23/2021 COMPARISON: 07/22/2021 HISTORY: Post CABG TECHNIQUE: Single frontal view of the chest is obtained. FINDINGS: There are median sternotomy wires. There has been interval removal of the ET tube. There is no change in the [place]-Adalberto catheter, bilateral chest tubes, mediastinal tube or NG tube. There is mild pulmonary vascular congestion and probable small bilateral pleural effusions. There is no pneumothorax. IMPRESSION: Interval development of mild pulmonary vascular congestion and probable small bilateral pleural effusions
[2021-07-23 06:53] LABS: Glucose,Whole Blood 127 mg/dL (75-99)
[2021-07-23] MEDS: IPRATROPIUM-ALBUTEROL 3 ML NEB INHALATION SCH ×4 (07:32→19:33)
[2021-07-23 08:50] LABS: Glucose,Whole Blood 127 mg/dL (75-99)
[2021-07-23] MEDS ORDERED: PANTOPRAZOLE 40 MG/10 ML VIAL IVP SCH (09:00)
[2021-07-23] MEDS ORDERED: ATORVASTATIN 40 MG TAB PO SCH (09:00)
[2021-07-23] MEDS ORDERED: MAGNESIUM HYDROXIDE 2,400 MG/10 ML CUP PO PRN (09:00)
[2021-07-23] MEDS ORDERED: bisacodyL 10 MG SUPP RECTAL PRN (09:00)
[2021-07-23 09:08] LABS: ABG Base Excess -4.2 mmol/L; ABG HCO3 20 mmol/L (21-25); ABG Oxygen Saturation 97.6 % (94-97); ABG PCO2 30 mmHg (35-45); ABG PH 7.43 (7.35-7.45); ABG PO2 84 mmHg (83-108); ABG TCO2 21 mmol/L (19-24)
[2021-07-23 09:13] LABS: Allen Test Performed? no
[2021-07-23 09:23] LABS: Calcium 8.3 mg/dL (8.4-10.2)
[2021-07-23] MEDS ORDERED: FUROSEMIDE 10 MG/ML 2 ML VIAL IV ONE ×2 (09:36→17:30)
[2021-07-23 09:38] LABS: VBG PH 7.39 (7.31-7.41)
[2021-07-23] MEDS ORDERED: CALCIUM GLUCONATE 1 GM in SODIUM CHLORIDE 0.9% 100 ML IVPB ONE (10:00)
--- NOTE | 2021-07-23 10:01 | P.PN ---
Subjective Progress Note Date: 07/23/21 Principal diagnosis: Triple-vessel coronary artery disease, non-STEMI and admission, moderate aortic valve stenosis, mild to moderate mitral valve regurgitation, acute systolic hea rt failure present on admission, EF 30-35%, paroxysmal atrial fibrillation preoperatively, first-degree heart block, paroxysmal episodes of second-degree and complete heart block this admission, acute kidney injury, elevated CRP, pro- calcitonin on admission. Previous medical history of hypertension, hyperlipidemia, [id number] diabetes, lifetime nonsmoker, family history of heart disease, remains unvaccinated against covid. POD #1 triple-vessel coronary artery bypass grafting using the left internal mammary artery to the left anterior descending coronary artery, a reverse greater saphenous vein graft from the aorta to the second obtuse marginal coronary artery, and a reverse greater saphenous vein graft from the aorta to the third obtuse marginal coronary artery. Aortic valve replacement using a 23 mm pericardial bioprosthetic Inspiris. Bilateral pulmonary vein isolation using bipolar radiofrequency energy from Atricure, exclusion of the left atrial appendage using a 40 mm Atriclip, intraoperative transesophageal echocardiogram, epi-aortic scanning and graft flow measurements using the Medi-Stim system. Endoscopic harvesting of his left greater saphenous vein from the ankle to the groin, and his right greater saphenous vein from just below the knee to his groin. Postoperative acute blood loss anemia, expected given hemodilution and cardiopulmonary bypass. Hypotension, multifactorial, could be secondary to his ejection fraction of 30- 35%. The patient was seen in follow-up today 07/23/2021 at his bedside in the intensive care unit. Currently he is sitting up to the bedside chair, is awake, alert and oriented 1 to person. He was successfully extubated at 10:15 PM last evening and is currently on 4 L nasal cannula with oxygen saturations 95%. It is unable to tolerate using his incentive spirometry at this time. He denies any complaints of pain or shortness of breath at this time. He is answering some simple questions, although he has having episodes of confusion. Right IJ Cordis and Lenox-Adalberto catheter in place with current hemodynamics showing a cardiac output of 4.6, cardiac index 2.2, PA pressure 39/15, and a CVP 14 mmHg. Vasopressin infusing at 0.03 units per minute, and norepinephrine drip is infusing at 0.14 mcg/kg/m. The patient also has Primacor at 0.03 mcg/kg/m infusing. Laboratory results this morning show a WBC count 6.3, hemoglobin 7.3, platelets 108, sodium 134, potassium 6.0, CO2 20, BUN 21, creatinine 1.55, AST 568 and ALT 343. Due to the patient's potassium of 6.0 the patient was given 25 mL of dextrose 50% followed by 10 units of IV Humulin R insulin per Dr. Valencia. Mediastinal, left and right pleural chest tubes remain in place to low continuous wall suction -20 cm H2O. No air leak is present. Draining thin serosanguineous drainage. Left pleural chest tube drained 140 mL output in the last 8 hours and 350 mL output since surgery, mediastinal chest tubes drained 270 mL output last 8 hours and 630 mL output since surgery and his right pleural chest tubes has drained 40 mL output in the last 8 hours and 210 mL output since surgery. Urine output has been 430 mL output in the last 8 hours. Insulin drip remains infusing at 4 units per hour. Bedside telemetry is currently showing atrial paced rhythm at 80 BPM, underlying rhythm is showing first-degree heart block heart rate in the mid 60s to mid 70s. Objective - Vital Signs Vital signs: Vital Signs Temp 99.3 F 07/23/21 04:15 Pulse 76 07/23/21 07:41 Resp 32 H 07/23/21 07:00 BP 109/60 07/23/21 04:15 Pulse Ox 95 07/23/21 07:00 Intake & Output 07/22/21 07/23/21 07/23/21 18:59 06:59 18:59 Intake Total 392.808 9324.043 401.09 Output Total 2720 1352 135 Balance -2355.608 68.043 266.09 Intake: IV 305.46 1089.59 147.09 ACETAMINOPHEN IV (For NPO 100 ) 1,000 mg In Empty Bag 1 bag @ 400 mls/hr IVPB Q6HR [facility] Rx#:[id number] CARDIAC OUTPUT 0.9 Sodium 40 200 20 Chloride Milrinone-D5w Pmx 20 mg 17.37 4.59 4.59 In Dextrose/Water 1 100ml .bag @ Per Protocol IV . Q0M [facility] Rx#:[id number] Nitroglycerin-D5w Pmx 50 4.5 1.5 mg In Dextrose/Water 1 250ml.bag @ 5 MCG/MIN 1.5 mls/hr IV .Q24H [facility] Rx#: [id number] PRESSURE BAG 0.9 Sodium 27 119 18 Chloride Potassium Chloride 20 meq 300 In Water For Injection 1 100ml.bag @ 50 mls/hr IVPB Q2H [facility] Rx#: [id number] Sodium Chloride 0.9% 1, 150 360 100 000 ml @ 50 mls/hr IV . Q20H [facility] Rx#:[id number] Sodium Chloride 0.9% 50 13.59 4.5 4.5 ml @ 0.03 UNITS/MIN 4.59 mls/hr IVPB .Q11H7M ONE with Vasopressin 20 unit Rx#:[id number] Intake, IV Titration 58.932 330.453 254 Amount Insulin Regular 100 unit 0.337 25.074 In Sodium Chloride 0.9% 100 ml @ Per Protocol IV .Q0M [facility] Rx#:[id number] Milrinone-D5w Pmx 20 mg 91.046 In Dextrose/Water 1 100ml .bag @ Per Protocol IV . Q0M [facility] Rx#:[id number] Norepinephrine 4 mg In 58.595 195.405 254 Sodium Chloride 0.9% 250 ml @ 0.02 MCG/KG/MIN 6. 934 mls/hr IV .Q24H [facility] Rx#:[id number] propofoL 1,000 mg In 18.928 Empty Bag 1 bag @ Titrate IV .Q0M [facility] Rx#: [id number] Output: Chest Tube Drainage 600 650 80 Chest Tube Left Lateral 170 190 40 Chest Chest Tube Mediastinal 270 360 40 Chest Tube Right Lateral 160 100 0 Chest Urine 920 702 55 Estimated Blood Loss 1200 Other: Voiding Method Indwelling Catheter Indwelling Catheter ABP, PAP, CO, CI - Last Documented Arterial Blood Pressure 110/43 Pulmonary Artery Pressure 39/14 Cardiac Output 4.6 Cardiac Index 2.2 - Exam CONSTITUTIONAL: Sitting up to the bedside chair in the intensive care unit, ap pears restless, cooperative, oriented to person and is in no apparent acute distress. HEENT: Neck is supple, no JVD, no lymphadenopathy. Right IJ Cordis and Lenox- Adalberto catheter in place and functioning. RESPIRATORY: Lungs sounds essentially clear throughout, diminished to his bilateral bases with few scattered crackles. Respirations are symmetrical and nonlabored. Currently on 4 L nasal cannula with oxygen saturations 95%. Unable to demonstrate use his incentive spirometry at this time. Strong cough. CARDIOVASCULAR: Regular rhythm and rate. S1 and S2 present, negative for S3, gallop or murmur. Sternum is stable. Palpable peripheral pulses bilaterally, +1 edema to his bilateral lower extremities. No calf pain or tenderness noted. Heart hugger in place with patient demonstrating appropriate use. Knee-high YOU hose and sequential compression devices in place to his bilateral lower extremities. GASTROINTESTINAL: Abdomen soft, nontender, nondistended. Hypoactive bowel sounds present 4 quadrants. Tolerating diet. No guarding or rigidity. GENITOURINARY: Nava present draining clear, yellow urine. Output 430 mL in the last 8 hours. INTEGUMENTARY: Skin is warm and dry with no evidence of clubbing or cyanosis. Midline sternal incision clean dry and well approximated, covered with dry intact dressing. Right and left lower extremity EVH sites well approximated without redness or drainage. NEUROLOGIC: Cranial nerves II through XII intact. No focal deficits. MUSKULOSKELETAL: Able to move all extremities, strength equal bilaterally, generalized weakness. PSYCHIATRIC: Alert and oriented to person, disoriented to place and time. INVASIVE LINES AND TUBES: Mediastinal/left and right pleural chest tubes present and connected to low continuous wall suction, no air leaks present. Mediastinal tube with 270 mL of thin serosanguineous drainage overnight, 630 L output since surgery. Left pleural chest tube with 140 mL of thin serosanguineous drainage overnight, 350 mL output since surgery. Right pleural chest tube with 40 mL output in the last 8 hours and 210 mL output since surgery. Atrial and ventricular epicardial pacemaker wires present, connected to backup bedside pacemaker generator, AAI rate 80 bpm. Right internal jugular Lenox/Cordis, right radial arterial line present. Last CO 4.6, CI 2.2, PA 39/15 and CVP 14 mmHg. Left arm KANCHAN drain in place with scant thin serosanguineous drainage, 10 mL output in the last 8 hours. Left lower extremity KANCHAN drain in place with scant thin serosanguineous drainage with 20 mL output in the last 8 hours. - Allied health notes Allied health notes reviewed: nursing - Labs CBC & Chem 7: 07/23/21 03:21 07/23/21 04:25 Labs: Abnormal Lab Results - Last 24 Hours (Table) 07/21/21 07/22/21 07/22/21 Range/Units 08:22 08:26 10:27 RBC (4.30-5.90) m/uL Hgb (13.0-17.5) gm/dL Hct (39.0-53.0) % Plt Count (150-450) k/uL Lymphocytes # (1.0-4.8) k/uL Lymphocytes # (Manual) (1.0-4.8) k/uL PT (9.0-12.0) sec INR (<1.2) APTT (22.0-30.0) sec ABG pH (7.35-7.45) ABG pCO2 (35-45) mmHg ABG pO2 240 H (83-108) mmHg ABG HCO3 26 H (21-25) mmol/L ABG Total CO2 27 H 26 H (19-24) mmol/L ABG O2 Saturation 98.1 H 99.6 H (94-97) % ABG Hematocrit 31 L (34.0-46.0) % ABG Sodium (135-146) mmol/L ABG Potassium (3.4-4.5) mmol/L ABG Ionized Calcium (4.5-5.3) mg/dL ABG Glucose 160 H 170 H (75-99) mg/dL ABG Lactic Acid (0.5-1.6) mmol/L Hemoglobin 11.7 L 10.2 L (13.0-17.5) gm/dL Sodium (137-145) mmol/L Potassium (3.5-5.1) mmol/L Carbon Dioxide (22-30) mmol/L BUN (9-20) mg/dL Creatinine (0.66-1.25) mg/dL Glucose (74-99) mg/dL POC Glucose (mg/dL) (75-99) mg/dL Calcium (8.4-10.2) mg/dL Magnesium (1.6-2.3) mg/dL AST (17-59) U/L ALT (4-49) U/L Alkaline Phosphatase (38-126) U/L Total Protein (6.3-8.2) g/dL Albumin (3.5-5.0) g/dL Arterial Blood Potassium (3.4-4.5) mmol/L Arterial Blood Glucose 160 H 170 H (75-99) mg/dL Crossmatch See Detail 07/22/21 07/22/21 07/22/21 Range/Units 11:20 12:08 12:37 RBC (4.30-5.90) m/uL Hgb (13.0-17.5) gm/dL Hct (39.0-53.0) % Plt Count (150-450) k/uL Lymphocytes # (1.0-4.8) k/uL Lymphocytes # (Manual) (1.0-4.8) k/uL PT (9.0-12.0) sec INR (<1.2) APTT (22.0-30.0) sec ABG pH (7.35-7.45) ABG pCO2 (35-45) mmHg ABG pO2 394 H 235 H 223 H (83-108) mmHg ABG HCO3 26 H (21-25) mmol/L ABG Total CO2 25 H 26 H 27 H (19-24) mmol/L ABG O2 Saturation 100.0 H 99.7 H 99.9 H (94-97) % ABG Hematocrit 24 L 24 L 23 L (34.0-46.0) % ABG Sodium 134 L (135-146) mmol/L ABG Potassium (3.4-4.5) mmol/L ABG Ionized Calcium 4.2 L 4.3 L 4.3 L (4.5-5.3) mg/dL ABG Glucose 160 H 147 H 146 H (75-99) mg/dL ABG Lactic Acid (0.5-1.6) mmol/L Hemoglobin 7.9 L 7.8 L 7.6 L (13.0-17.5) gm/dL Sodium (137-145) mmol/L Potassium (3.5-5.1) mmol/L Carbon Dioxide (22-30) mmol/L BUN (9-20) mg/dL Creatinine (0.66-1.25) mg/dL Glucose (74-99) mg/dL POC Glucose (mg/dL) (75-99) mg/dL Calcium (8.4-10.2) mg/dL Magnesium (1.6-2.3) mg/dL AST (17-59) U/L ALT (4-49) U/L Alkaline Phosphatase (38-126) U/L Total Protein (6.3-8.2) g/dL Albumin (3.5-5.0) g/dL Arterial Blood Potassium (3.4-4.5) mmol/L Arterial Blood Glucose 160 H 147 H 146 H (75-99) mg/dL Crossmatch 07/22/21 07/22/21 07/22/21 Range/Units 13:20 13:52 15:04 RBC (4.30-5.90) m/uL Hgb (13.0-17.5) gm/dL Hct (39.0-53.0) % Plt Count (150-450) k/uL Lymphocytes # (1.0-4.8) k/uL Lymphocytes # (Manual) (1.0-4.8) k/uL PT (9.0-12.0) sec INR (<1.2) APTT (22.0-30.0) sec ABG pH (7.35-7.45) ABG pCO2 (35-45) mmHg ABG pO2 326 H 378 H 64 L (83-108) mmHg ABG HCO3 26 H 26 H (21-25) mmol/L ABG Total CO2 27 H 27 H (19-24) mmol/L ABG O2 Saturation 99.9 H 100.0 H 91.5 L (94-97) % ABG Hematocrit 23 L 23 L 21 L (34.0-46.0) % ABG Sodium (135-146) mmol/L ABG Potassium 4.6 H (3.4-4.5) mmol/L ABG Ionized Calcium 4.2 L 4.2 L (4.5-5.3) mg/dL ABG Glucose 136 H 142 H 161 H (75-99) mg/dL ABG Lactic Acid 1.7 H 2.3 H* 3.6 H* (0.5-1.6) mmol/L Hemoglobin 7.5 L 7.3 L 7.0 L* (13.0-17.5) gm/dL Sodium (137-145) mmol/L Potassium (3.5-5.1) mmol/L Carbon Dioxide (22-30) mmol/L BUN (9-20) mg/dL Creatinine (0.66-1.25) mg/dL Glucose (74-99) mg/dL POC Glucose (mg/dL) (75-99) mg/dL Calcium (8.4-10.2) mg/dL Magnesium (1.6-2.3) mg/dL AST (17-59) U/L ALT (4-49) U/L Alkaline Phosphatase (38-126) U/L Total Protein (6.3-8.2) g/dL Albumin (3.5-5.0) g/dL Arterial Blood Potassium 4.6 H (3.4-4.5) mmol/L Arterial Blood Glucose 136 H 142 H 161 H (75-99) mg/dL Crossmatch 07/22/21 07/22/21 07/22/21 Range/Units 15:40 16:35 16:35 RBC 2.35 L (4.30-5.90) m/uL Hgb 7.6 L D (13.0-17.5) gm/dL Hct 23.3 L (39.0-53.0) % Plt Count 83 L D (150-450) k/uL Lymphocytes # 0.7 L (1.0-4.8) k/uL Lymphocytes # (Manual) (1.0-4.8) k/uL PT 14.2 H (9.0-12.0) sec INR 1.4 H (<1.2) APTT 38.6 H (22.0-30.0) sec ABG pH (7.35-7.45) ABG pCO2 (35-45) mmHg ABG pO2 59 L* (83-108) mmHg ABG HCO3 26 H (21-25) mmol/L ABG Total CO2 27 H (19-24) mmol/L ABG O2 Saturation 92.5 L (94-97) % ABG Hematocrit 23 L (34.0-46.0) % ABG Sodium (135-146) mmol/L ABG Potassium (3.4-4.5) mmol/L ABG Ionized Calcium (4.5-5.3) mg/dL ABG Glucose 119 H (75-99) mg/dL ABG Lactic Acid 3.3 H* (0.5-1.6) mmol/L Hemoglobin 7.6 L (13.0-17.5) gm/dL Sodium (137-145) mmol/L Potassium (3.5-5.1) mmol/L Carbon Dioxide (22-30) mmol/L BUN (9-20) mg/dL Creatinine (0.66-1.25) mg/dL Glucose (74-99) mg/dL POC Glucose (mg/dL) (75-99) mg/dL Calcium (8.4-10.2) mg/dL Magnesium (1.6-2.3) mg/dL AST (17-59) U/L ALT (4-49) U/L Alkaline Phosphatase (38-126) U/L Total Protein (6.3-8.2) g/dL Albumin (3.5-5.0) g/dL Arterial Blood Potassium (3.4-4.5) mmol/L Arterial Blood Glucose 119 H (75-99) mg/dL Crossmatch 07/22/21 07/22/21 07/22/21 Range/Units 16:35 16:35 16:47 RBC (4.30-5.90) m/uL Hgb (13.0-17.5) gm/dL Hct (39.0-53.0) % Plt Count (150-450) k/uL Lymphocytes # (1.0-4.8) k/uL Lymphocytes # (Manual) (1.0-4.8) k/uL PT (9.0-12.0) sec INR (<1.2) APTT (22.0-30.0) sec ABG pH (7.35-7.45) ABG pCO2 (35-45) mmHg ABG pO2 76 L (83-108) mmHg ABG HCO3 (21-25) mmol/L ABG Total CO2 27 H (19-24) mmol/L ABG O2 Saturation (94-97) % ABG Hematocrit (34.0-46.0) % ABG Sodium (135-146) mmol/L ABG Potassium (3.4-4.5) mmol/L ABG Ionized Calcium (4.5-5.3) mg/dL ABG Glucose (75-99) mg/dL ABG Lactic Acid (0.5-1.6) mmol/L Hemoglobin (13.0-17.5) gm/dL Sodium 136 L (137-145) mmol/L Potassium (3.5-5.1) mmol/L Carbon Dioxide (22-30) mmol/L BUN 21 H (9-20) mg/dL Creatinine (0.66-1.25) mg/dL Glucose (74-99) mg/dL POC Glucose (mg/dL) 100 H (75-99) mg/dL Calcium (8.4-10.2) mg/dL Magnesium 2.4 H (1.6-2.3) mg/dL AST (17-59) U/L ALT (4-49) U/L Alkaline Phosphatase <20 L (38-126) U/L Total Protein 4.3 L (6.3-8.2) g/dL Albumin 2.7 L (3.5-5.0) g/dL Arterial Blood Potassium (3.4-4.5) mmol/L Arterial Blood Glucose (75-99) mg/dL Crossmatch 07/22/21 07/22/21 07/22/21 Range/Units 17:57 18:52 19:44 RBC (4.30-5.90) m/uL Hgb (13.0-17.5) gm/dL Hct (39.0-53.0) % Plt Count (150-450) k/uL Lymphocytes # (1.0-4.8) k/uL Lymphocytes # (Manual) (1.0-4.8) k/uL PT (9.0-12.0) sec INR (<1.2) APTT (22.0-30.0) sec ABG pH (7.35-7.45) ABG pCO2 (35-45) mmHg ABG pO2 (83-108) mmHg ABG HCO3 (21-25) mmol/L ABG Total CO2 (19-24) mmol/L ABG O2 Saturation (94-97) % ABG Hematocrit (34.0-46.0) % ABG Sodium (135-146) mmol/L ABG Potassium (3.4-4.5) mmol/L ABG Ionized Calcium (4.5-5.3) mg/dL ABG Glucose (75-99) mg/dL ABG Lactic Acid (0.5-1.6) mmol/L Hemoglobin (13.0-17.5) gm/dL Sodium (137-145) mmol/L Potassium (3.5-5.1) mmol/L Carbon Dioxide (22-30) mmol/L BUN (9-20) mg/dL Creatinine (0.66-1.25) mg/dL Glucose (74-99) mg/dL POC Glucose (mg/dL) 108 H 134 H 134 H (75-99) mg/dL Calcium (8.4-10.2) mg/dL Magnesium (1.6-2.3) mg/dL AST (17-59) U/L ALT (4-49) U/L Alkaline Phosphatase (38-126) U/L Total Protein (6.3-8.2) g/dL Albumin (3.5-5.0) g/dL Arterial Blood Potassium (3.4-4.5) mmol/L Arterial Blood Glucose (75-99) mg/dL Crossmatch 07/22/21 07/22/21 07/22/21 Range/Units 19:54 21:11 22:02 RBC 2.26 L (4.30-5.90) m/uL Hgb 7.5 L (13.0-17.5) gm/dL Hct 22.5 L (39.0-53.0) % Plt Count 104 L (150-450) k/uL Lymphocytes # (1.0-4.8) k/uL Lymphocytes # (Manual) 0.38 L (1.0-4.8) k/uL PT (9.0-12.0) sec INR (<1.2) APTT (22.0-30.0) sec ABG pH 7.46 H (7.35-7.45) ABG pCO2 33 L (35-45) mmHg ABG pO2 (83-108) mmHg ABG HCO3 (21-25) mmol/L ABG Total CO2 (19-24) mmol/L ABG O2 Saturation 98.7 H (94-97) % ABG Hematocrit (34.0-46.0) % ABG Sodium (135-146) mmol/L ABG Potassium (3.4-4.5) mmol/L ABG Ionized Calcium (4.5-5.3) mg/dL ABG Glucose (75-99) mg/dL ABG Lactic Acid (0.5-1.6) mmol/L Hemoglobin (13.0-17.5) gm/dL Sodium (137-145) mmol/L Potassium (3.5-5.1) mmol/L Carbon Dioxide (22-30) mmol/L BUN (9-20) mg/dL Creatinine (0.66-1.25) mg/dL Glucose (74-99) mg/dL POC Glucose (mg/dL) 140 H (75-99) mg/dL Calcium (8.4-10.2) mg/dL Magnesium (1.6-2.3) mg/dL AST (17-59) U/L ALT (4-49) U/L Alkaline Phosphatase (38-126) U/L Total Protein (6.3-8.2) g/dL Albumin (3.5-5.0) g/dL Arterial Blood Potassium (3.4-4.5) mmol/L Arterial Blood Glucose (75-99) mg/dL Crossmatch 07/22/21 07/22/21 07/22/21 Range/Units 22:34 22:45 23:58 RBC 2.29 L (4.30-5.90) m/uL Hgb 7.4 L (13.0-17.5) gm/dL Hct 22.3 L (39.0-53.0) % Plt Count 102 L (150-450) k/uL Lymphocytes # 0.6 L (1.0-4.8) k/uL Lymphocytes # (Manual) (1.0-4.8) k/uL PT (9.0-12.0) sec INR (<1.2) APTT (22.0-30.0) sec ABG pH (7.35-7.45) ABG pCO2 (35-45) mmHg ABG pO2 (83-108) mmHg ABG HCO3 (21-25) mmol/L ABG Total CO2 (19-24) mmol/L ABG O2 Saturation (94-97) % ABG Hematocrit (34.0-46.0) % ABG Sodium (135-146) mmol/L ABG Potassium (3.4-4.5) mmol/L ABG Ionized Calcium (4.5-5.3) mg/dL ABG Glucose (75-99) mg/dL ABG Lactic Acid (0.5-1.6) mmol/L Hemoglobin (13.0-17.5) gm/dL Sodium (137-145) mmol/L Potassium (3.5-5.1) mmol/L Carbon Dioxide (22-30) mmol/L BUN (9-20) mg/dL Creatinine (0.66-1.25) mg/dL Glucose (74-99) mg/dL POC Glucose (mg/dL) 149 H 147 H (75-99) mg/dL Calcium (8.4-10.2) mg/dL Magnesium (1.6-2.3) mg/dL AST (17-59) U/L ALT (4-49) U/L Alkaline Phosphatase (38-126) U/L Total Protein (6.3-8.2) g/dL Albumin (3.5-5.0) g/dL Arterial Blood Potassium (3.4-4.5) mmol/L Arterial Blood Glucose (75-99) mg/dL Crossmatch 07/23/21 07/23/21 07/23/21 Range/Units 01:49 02:45 03:20 RBC (4.30-5.90) m/uL Hgb (13.0-17.5) gm/dL Hct (39.0-53.0) % Plt Count (150-450) k/uL Lymphocytes # (1.0-4.8) k/uL Lymphocytes # (Manual) (1.0-4.8) k/uL PT (9.0-12.0) sec INR (<1.2) APTT (22.0-30.0) sec ABG pH (7.35-7.45) ABG pCO2 30 L (35-45) mmHg ABG pO2 82 L (83-108) mmHg ABG HCO3 (21-25) mmol/L ABG Total CO2 (19-24) mmol/L ABG O2 Saturation 97.2 H (94-97) % ABG Hematocrit (34.0-46.0) % ABG Sodium (135-146) mmol/L ABG Potassium (3.4-4.5) mmol/L ABG Ionized Calcium (4.5-5.3) mg/dL ABG Glucose (75-99) mg/dL ABG Lactic Acid (0.5-1.6) mmol/L Hemoglobin (13.0-17.5) gm/dL Sodium (137-145) mmol/L Potassium (3.5-5.1) mmol/L Carbon Dioxide (22-30) mmol/L BUN (9-20) mg/dL Creatinine (0.66-1.25) mg/dL Glucose (74-99) mg/dL POC Glucose (mg/dL) 157 H 170 H (75-99) mg/dL Calcium (8.4-10.2) mg/dL Magnesium (1.6-2.3) mg/dL AST (17-59) U/L ALT (4-49) U/L Alkaline Phosphatase (38-126) U/L Total Protein (6.3-8.2) g/dL Albumin (3.5-5.0) g/dL Arterial Blood Potassium (3.4-4.5) mmol/L Arterial Blood Glucose (75-99) mg/dL Crossmatch 07/23/21 07/23/21 07/23/21 Range/Units 03:21 03:21 04:21 RBC 2.31 L (4.30-5.90) m/uL Hgb 7.3 L (13.0-17.5) gm/dL Hct 23.0 L (39.0-53.0) % Plt Count 108 L (150-450) k/uL Lymphocytes # 0.5 L (1.0-4.8) k/uL Lymphocytes # (Manual) (1.0-4.8) k/uL PT (9.0-12.0) sec INR (<1.2) APTT (22.0-30.0) sec ABG pH (7.35-7.45) ABG pCO2 (35-45) mmHg ABG pO2 (83-108) mmHg ABG HCO3 (21-25) mmol/L ABG Total CO2 (19-24) mmol/L ABG O2 Saturation (94-97) % ABG Hematocrit (34.0-46.0) % ABG Sodium (135-146) mmol/L ABG Potassium (3.4-4.5) mmol/L ABG Ionized Calcium (4.5-5.3) mg/dL ABG Glucose (75-99) mg/dL ABG Lactic Acid (0.5-1.6) mmol/L Hemoglobin (13.0-17.5) gm/dL Sodium 134 L (137-145) mmol/L Potassium 6.3 H* (3.5-5.1) mmol/L Carbon Dioxide 20 L (22-30) mmol/L BUN 21 H (9-20) mg/dL Creatinine 1.55 H (0.66-1.25) mg/dL Glucose 150 H (74-99) mg/dL POC Glucose (mg/dL) 167 H (75-99) mg/dL Calcium 8.1 L (8.4-10.2) mg/dL Magnesium (1.6-2.3) mg/dL AST 568 H (17-59) U/L ALT 343 H (4-49) U/L Alkaline Phosphatase 20 L (38-126) U/L Total Protein 4.5 L (6.3-8.2) g/dL Albumin 3.0 L (3.5-5.0) g/dL Arterial Blood Potassium (3.4-4.5) mmol/L Arterial Blood Glucose (75-99) mg/dL Crossmatch 07/23/21 07/23/21 07/23/21 Range/Units 04:25 05:40 06:51 RBC (4.30-5.90) m/uL Hgb (13.0-17.5) gm/dL Hct (39.0-53.0) % Plt Count (150-450) k/uL Lymphocytes # (1.0-4.8) k/uL Lymphocytes # (Manual) (1.0-4.8) k/uL PT (9.0-12.0) sec INR (<1.2) APTT (22.0-30.0) sec ABG pH (7.35-7.45) ABG pCO2 (35-45) mmHg ABG pO2 (83-108) mmHg ABG HCO3 (21-25) mmol/L ABG Total CO2 (19-24) mmol/L ABG O2 Saturation (94-97) % ABG Hematocrit (34.0-46.0) % ABG Sodium (135-146) mmol/L ABG Potassium (3.4-4.5) mmol/L ABG Ionized Calcium (4.5-5.3) mg/dL ABG Glucose (75-99) mg/dL ABG Lactic Acid (0.5-1.6) mmol/L Hemoglobin (13.0-17.5) gm/dL Sodium (137-145) mmol/L Potassium 6.0 H (3.5-5.1) mmol/L Carbon Dioxide (22-30) mmol/L BUN (9-20) mg/dL Creatinine (0.66-1.25) mg/dL Glucose (74-99) mg/dL POC Glucose (mg/dL) 126 H 127 H (75-99) mg/dL Calcium (8.4-10.2) mg/dL Magnesium (1.6-2.3) mg/dL AST (17-59) U/L ALT (4-49) U/L Alkaline Phosphatase (38-126) U/L Total Protein (6.3-8.2) g/dL Albumin (3.5-5.0) g/dL Arterial Blood Potassium (3.4-4.5) mmol/L Arterial Blood Glucose (75-99) mg/dL Crossmatch - Imaging and Cardiology Chest x-ray: report reviewed, image reviewed Assessment and Plan Assessment: 1. Triple-vessel coronary artery disease, non-STEMI and admission, status post triple-vessel coronary artery bypass grafting surgery 2. Acute systolic heart failure present on admission, EF 30-35% 3. First-degree heart block, paroxysmal episodes of second-degree and complete heart block this admission 4. Preoperative paroxysmal atrial fibrillation, status post bilateral pulmonary vein isolation using bipolar radiofrequency energy from [employer] and exclusion of his left atrial appendage using a 40 mm Atriclip 5. Acute kidney injury 6. Elevated CRP, pro-calcitonin on admission 7. Aortic stenosis, status post aortic valve replacement using a 23 mm pericardial bioprosthetic Inspiris valve 8. History of hypertension 9. History of hyperlipidemia, treated, cholesterol 129, LDL 71 10. Vzj-wlrsozh-ubiuogzdy diabetes, hemoglobin A1c 8.6% 11. Lifetime nonsmoker, preoperative FEV1 72% of predicted 12. Family history of heart disease 13. Remains unvaccinated against covid 14. Postoperative acute blood loss anemia, expected given hemodilution and cardiopulmonary bypass 15. Hypotension, multifactorial, could be secondary to postoperative acute blood loss anemia and preoperative ejection fraction of 30-35% 16. Transaminitis, AST 568 and ALT 343, possibly secondary to hypotension Plan: 1. Continue aspirin and Plavix. Will hold off on his beta jose raul and amiodarone at this time due to episodes of bradycardia, first degree, second degree and complete heart block preoperatively. We will start beta jose raul when able to tolerate. 2. Hold statin at this time due to his elevated liver enzymes. Once his liver enzymes are normalized we will restart his down. 3. Wean O2 as tolerated. Encourage incentive spirometry use. Bronchodilators per pulmonology/critical care medicine. 4. Increase activity, ambulate as tolerated. PT/OT/cardiac rehab consulted. 5. Will monitor daily labs and chest x-rays. Electrolyte replacement per protocol. Avoid nephrotoxic agents. 6. GI/DVT prophylaxis 7. Insulin management per primary care service. The patient is a diabetic with a preoperative hemoglobin A1c of 8.6%. He will need tight glucose control to prevent sternal wound infection and promote healing. 8. Continue right IJ Cordis and Lenox-Adalberto catheter with hemodynamic monitoring. Continue Primacor drip at 0.03 mcg/kg/m. 9. Pain control with current medication regimen. [place] have been discontinued due to his disorientation. Acetaminophen 650 mg by mouth every 6 hours when necessary pain has been adequate. 10. Will discontinue left lower extremity KANCHAN drain. 11. Continue mediastinal chest tubes, left and right pleural chest tube for another 24 hours. 12. Continue Nava catheter for another 24 hours for strict accurate intake and output. 13. Wean norepinephrine drip and vasopressin drip as tolerated to keep a mean arterial pressure of 70 or greater. 14. ABG 1 now, mixed venous gas 1 now and repeat serum potassium. 15. Transfuse 1 unit of PRBCs, once transfusion has completed give Lasix 20 mg IV 1 now. 16. 1 g of calcium gluconate IV piggyback 1 now. 17. Continue atrial and ventricular epicardial pacemaker wires, keep pacemaker generator at an AAI of 80 BPM. 18. More recommendations to follow based on patient's clinical course. Time with Patient: Greater than 30
[2021-07-23 10:32] LABS: Glucose,Whole Blood 131 mg/dL (75-99)
--- NOTE | 2021-07-23 10:41 | P.PN ---
Subjective Progress Note Date: 07/23/21 The patient is seen today 07/23/2021 in follow-up in the intensive care unit. This is postoperative day #1 of a triple vessel coronary artery bypass grafting using the BAIN to the LAD, reverse saphenous vein graft to the second obtuse marginal, third obtuse marginal. Aortic valve replacement using a 23 mm pericardial bioprosthetic Inspiris. He was successfully extubated at 10:15 last evening. Currently on 4 L high flow nasal cannula to maintain O2 saturation in the mid 90s. Chest x-ray showing interval development of mild pulmonary vascular congestion and a probable small bilateral effusions. He is sitting up in a chair at the bedside. He is arousable. He drifts off easily. He is oriented 1 to person. Somewhat slow to respond. Very weak. He did have hypotension postoperatively with some acute blood loss anemia. His ejection fraction is 30-35%. He is currently requiring norepinephrine at 0.14 g per kilogram per minute. He is on vasopressin at 0.03 units per minute. Primacor a t 0.03 mcg/kg/m. Right IJ Cordis and Covel skin catheter in place. Current cardiac output 4.6. Cardiac index 2.2. PA pressures 39/15 with a CVP of 14. He is on insulin drip at 4 units per hour. 0.9% normal saline at 50 MLS per hour. He is currently in an atrial paced rhythm at 80 bpm. Pacer wires in place. Mediastinal, right and left pleural chest tubes remain in place. Urine output is adequate. White count 6.3. Hemoglobin 7.3. Platelets 108. Sodium 136. Potassium 5.0. Bicarb 20. BUN 22. Creatinine 1.62. Blood glucose 127. AST 568. ALT 343. Arterial blood gases revealed a pO2 of 84, P CO2 of 30 and a pH of 7.43. He is continued on heparin subcu for DVT prophylaxis. Protonix for GI prophylaxis. Objective - Vital Signs Vital signs: Vital Signs Temp 98.8 F 07/23/21 08:00 Pulse 80 07/23/21 09:19 Resp 36 H 07/23/21 09:19 BP 115/41 07/23/21 09:19 Pulse Ox 96 07/23/21 09:19 Intake & Output 01/14/22 01/15/22 01/15/22 18:59 06:59 18:59 Intake Total 310.310 8888.043 469.18 Output Total 2720 1352 205 Balance -2355.608 68.043 264.18 Intake: IV 305.46 1089.59 215.18 ACETAMINOPHEN IV (For NPO 100 ) 1,000 mg In Empty Bag 1 bag @ 400 mls/hr IVPB Q6HR [facility] Rx#:[id number] CARDIAC OUTPUT 0.9 Sodium 40 200 20 Chloride Milrinone-D5w Pmx 20 mg 17.37 4.59 9.18 In Dextrose/Water 1 100ml .bag @ Per Protocol IV . Q0M [facility] Rx#:[id number] Nitroglycerin-D5w Pmx 50 4.5 1.5 mg In Dextrose/Water 1 250ml.bag @ 5 MCG/MIN 1.5 mls/hr IV .Q24H [facility] Rx#: [id number] PRESSURE BAG 0.9 Sodium 27 119 27 Chloride Potassium Chloride 20 meq 300 In Water For Injection 1 100ml.bag @ 50 mls/hr IVPB Q2H [facility] Rx#: [id number] Sodium Chloride 0.9% 1, 150 360 150 000 ml @ 50 mls/hr IV . Q20H [facility] Rx#:[id number] Sodium Chloride 0.9% 50 13.59 4.5 9.0 ml @ 0.03 UNITS/MIN 4.59 mls/hr IVPB .Q11H7M ONE with Vasopressin 20 unit Rx#:[id number] Intake, IV Titration 58.932 330.453 254 Amount Insulin Regular 100 unit 0.337 25.074 In Sodium Chloride 0.9% 100 ml @ Per Protocol IV .Q0M [facility] Rx#:[id number] Milrinone-D5w Pmx 20 mg 91.046 In Dextrose/Water 1 100ml .bag @ Per Protocol IV . Q0M [facility] Rx#:[id number] Norepinephrine 4 mg In 58.595 195.405 254 Sodium Chloride 0.9% 250 ml @ 0.02 MCG/KG/MIN 6. 934 mls/hr IV .Q24H [facility] Rx#:[id number] propofoL 1,000 mg In 18.928 Empty Bag 1 bag @ Titrate IV .Q0M [facility] Rx#: [id number] Output: Chest Tube Drainage 600 650 120 Chest Tube Left Lateral 170 190 60 Chest Chest Tube Mediastinal 270 360 60 Chest Tube Right Lateral 160 100 0 Chest Urine 920 702 85 Estimated Blood Loss 1200 Other: Voiding Method Indwelling Catheter Indwelling Catheter ABP, PAP, CO, CI - Last Documented Arterial Blood Pressure 123/39 Pulmonary Artery Pressure 42/13 Cardiac Output 4.6 Cardiac Index 2.2 - Exam GENERAL EXAM: Arousable, pleasant 75-year-old gentleman, drifts off easily, slow to respond, weak, on 4 L high flow nasal cannula, fairly, comfortable in no apparent distress. HEAD: Normocephalic. EYES: Normal reaction of pupils, equal size. NOSE: Clear with pink turbinates. THROAT: No erythema or exudates. NECK: Right IJ Cordis with Covel-Adalberto catheter in place. No masses, no JVD. CHEST: Sternal dressing dry and intact. Heart hugger in place. Right, left and mediastinal pleural chest tubes in place. AV pacer wires in place. LUNGS: Equal air entry with faint crackles in the bilateral bases. CVS: S1 and S2 normal with no audible murmur, regular rhythm. ABDOMEN: No hepatosplenomegaly, normal bowel sounds, no guarding or rigidity. SPINE: No scoliosis or deformity SKIN: No rashes CENTRAL NERVOUS SYSTEM: No focal deficits, tone is normal in all 4 extremities. EXTREMITIES: Right radial arterial line in place. Left arm KANCHAN drain in place with scant serosanguineous drainage. Lower left extremity KANCHAN drain in place with scant output. There is 1 + peripheral edema. No clubbing, no cyanosis. Peripheral pulses are intact. - Labs CBC & Chem 7: 07/23/21 03:21 07/23/21 08:47 Labs: Abnormal Lab Results - Last 24 Hours (Table) 07/21/21 07/22/21 07/22/21 Range/Units 08:22 08:26 10:27 RBC (4.30-5.90) m/uL Hgb (13.0-17.5) gm/dL Hct (39.0-53.0) % Plt Count (150-450) k/uL Lymphocytes # (1.0-4.8) k/uL Lymphocytes # (Manual) (1.0-4.8) k/uL PT (9.0-12.0) sec INR (<1.2) APTT (22.0-30.0) sec ABG pH (7.35-7.45) ABG pCO2 (35-45) mmHg ABG pO2 240 H (83-108) mmHg ABG HCO3 26 H (21-25) mmol/L ABG Total CO2 27 H 26 H (19-24) mmol/L ABG O2 Saturation 98.1 H 99.6 H (94-97) % ABG Hematocrit 31 L (34.0-46.0) % ABG Sodium (135-146) mmol/L ABG Potassium (3.4-4.5) mmol/L ABG Ionized Calcium (4.5-5.3) mg/dL ABG Glucose 160 H 170 H (75-99) mg/dL ABG Lactic Acid (0.5-1.6) mmol/L VBG pCO2 (37-51) mmHg VBG HCO3 (24-28) mmol/L Hemoglobin 11.7 L 10.2 L (13.0-17.5) gm/dL Sodium (137-145) mmol/L Potassium (3.5-5.1) mmol/L Chloride (98-107) mmol/L Carbon Dioxide (22-30) mmol/L BUN (9-20) mg/dL Creatinine (0.66-1.25) mg/dL Glucose (74-99) mg/dL POC Glucose (mg/dL) (75-99) mg/dL Calcium (8.4-10.2) mg/dL Magnesium (1.6-2.3) mg/dL AST (17-59) U/L ALT (4-49) U/L Alkaline Phosphatase (38-126) U/L Total Protein (6.3-8.2) g/dL Albumin (3.5-5.0) g/dL Arterial Blood Potassium (3.4-4.5) mmol/L Arterial Blood Glucose 160 H 170 H (75-99) mg/dL Crossmatch See Detail 07/22/21 07/22/21 07/22/21 Range/Units 11:20 12:08 12:37 RBC (4.30-5.90) m/uL Hgb (13.0-17.5) gm/dL Hct (39.0-53.0) % Plt Count (150-450) k/uL Lymphocytes # (1.0-4.8) k/uL Lymphocytes # (Manual) (1.0-4.8) k/uL PT (9.0-12.0) sec INR (<1.2) APTT (22.0-30.0) sec ABG pH (7.35-7.45) ABG pCO2 (35-45) mmHg ABG pO2 394 H 235 H 223 H (83-108) mmHg ABG HCO3 26 H (21-25) mmol/L ABG Total CO2 25 H 26 H 27 H (19-24) mmol/L ABG O2 Saturation 100.0 H 99.7 H 99.9 H (94-97) % ABG Hematocrit 24 L 24 L 23 L (34.0-46.0) % ABG Sodium 134 L (135-146) mmol/L ABG Potassium (3.4-4.5) mmol/L ABG Ionized Calcium 4.2 L 4.3 L 4.3 L (4.5-5.3) mg/dL ABG Glucose 160 H 147 H 146 H (75-99) mg/dL ABG Lactic Acid (0.5-1.6) mmol/L VBG pCO2 (37-51) mmHg VBG HCO3 (24-28) mmol/L Hemoglobin 7.9 L 7.8 L 7.6 L (13.0-17.5) gm/dL Sodium (137-145) mmol/L Potassium (3.5-5.1) mmol/L Chloride (98-107) mmol/L Carbon Dioxide (22-30) mmol/L BUN (9-20) mg/dL Creatinine (0.66-1.25) mg/dL Glucose (74-99) mg/dL POC Glucose (mg/dL) (75-99) mg/dL Calcium (8.4-10.2) mg/dL Magnesium (1.6-2.3) mg/dL AST (17-59) U/L ALT (4-49) U/L Alkaline Phosphatase (38-126) U/L Total Protein (6.3-8.2) g/dL Albumin (3.5-5.0) g/dL Arterial Blood Potassium (3.4-4.5) mmol/L Arterial Blood Glucose 160 H 147 H 146 H (75-99) mg/dL Crossmatch 0107/22/21 07/22/21 Range/Units 13:20 13:52 15:04 RBC (4.30-5.90) m/uL Hgb (13.0-17.5) gm/dL Hct (39.0-53.0) % Plt Count (150-450) k/uL Lymphocytes # (1.0-4.8) k/uL Lymphocytes # (Manual) (1.0-4.8) k/uL PT (9.0-12.0) sec INR (<1.2) APTT (22.0-30.0) sec ABG pH (7.35-7.45) ABG pCO2 (35-45) mmHg ABG pO2 326 H 378 H 64 L (83-108) mmHg ABG HCO3 26 H 26 H (21-25) mmol/L ABG Total CO2 27 H 27 H (19-24) mmol/L ABG O2 Saturation 99.9 H 100.0 H 91.5 L (94-97) % ABG Hematocrit 23 L 23 L 21 L (34.0-46.0) % ABG Sodium (135-146) mmol/L ABG Potassium 4.6 H (3.4-4.5) mmol/L ABG Ionized Calcium 4.2 L 4.2 L (4.5-5.3) mg/dL ABG Glucose 136 H 142 H 161 H (75-99) mg/dL ABG Lactic Acid 1.7 H 2.3 H* 3.6 H* (0.5-1.6) mmol/L VBG pCO2 (37-51) mmHg VBG HCO3 (24-28) mmol/L Hemoglobin 7.5 L 7.3 L 7.0 L* (13.0-17.5) gm/dL Sodium (137-145) mmol/L Potassium (3.5-5.1) mmol/L Chloride (98-107) mmol/L Carbon Dioxide (22-30) mmol/L BUN (9-20) mg/dL Creatinine (0.66-1.25) mg/dL Glucose (74-99) mg/dL POC Glucose (mg/dL) (75-99) mg/dL Calcium (8.4-10.2) mg/dL Magnesium (1.6-2.3) mg/dL AST (17-59) U/L ALT (4-49) U/L Alkaline Phosphatase (38-126) U/L Total Protein (6.3-8.2) g/dL Albumin (3.5-5.0) g/dL Arterial Blood Potassium 4.6 H (3.4-4.5) mmol/L Arterial Blood Glucose 136 H 142 H 161 H (75-99) mg/dL Crossmatch 07/22/21 07/22/21 07/22/21 Range/Units 15:40 16:35 16:35 RBC 2.35 L (4.30-5.90) m/uL Hgb 7.6 L D (13.0-17.5) gm/dL Hct 23.3 L (39.0-53.0) % Plt Count 83 L D (150-450) k/uL Lymphocytes # 0.7 L (1.0-4.8) k/uL Lymphocytes # (Manual) (1.0-4.8) k/uL PT 14.2 H (9.0-12.0) sec INR 1.4 H (<1.2) APTT 38.6 H (22.0-30.0) sec ABG pH (7.35-7.45) ABG pCO2 (35-45) mmHg ABG pO2 59 L* (83-108) mmHg ABG HCO3 26 H (21-25) mmol/L ABG Total CO2 27 H (19-24) mmol/L ABG O2 Saturation 92.5 L (94-97) % ABG Hematocrit 23 L (34.0-46.0) % ABG Sodium (135-146) mmol/L ABG Potassium (3.4-4.5) mmol/L ABG Ionized Calcium (4.5-5.3) mg/dL ABG Glucose 119 H (75-99) mg/dL ABG Lactic Acid 3.3 H* (0.5-1.6) mmol/L VBG pCO2 (37-51) mmHg VBG HCO3 (24-28) mmol/L Hemoglobin 7.6 L (13.0-17.5) gm/dL Sodium (137-145) mmol/L Potassium (3.5-5.1) mmol/L Chloride (98-107) mmol/L Carbon Dioxide (22-30) mmol/L BUN (9-20) mg/dL Creatinine (0.66-1.25) mg/dL Glucose (74-99) mg/dL POC Glucose (mg/dL) (75-99) mg/dL Calcium (8.4-10.2) mg/dL Magnesium (1.6-2.3) mg/dL AST (17-59) U/L ALT (4-49) U/L Alkaline Phosphatase (38-126) U/L Total Protein (6.3-8.2) g/dL Albumin (3.5-5.0) g/dL Arterial Blood Potassium (3.4-4.5) mmol/L Arterial Blood Glucose 119 H (75-99) mg/dL Crossmatch 07/22/21 07/22/21 07/22/21 Range/Units 16:35 16:35 16:47 RBC (4.30-5.90) m/uL Hgb (13.0-17.5) gm/dL Hct (39.0-53.0) % Plt Count (150-450) k/uL Lymphocytes # (1.0-4.8) k/uL Lymphocytes # (Manual) (1.0-4.8) k/uL PT (9.0-12.0) sec INR (<1.2) APTT (22.0-30.0) sec ABG pH (7.35-7.45) ABG pCO2 (35-45) mmHg ABG pO2 76 L (83-108) mmHg ABG HCO3 (21-25) mmol/L ABG Total CO2 27 H (19-24) mmol/L ABG O2 Saturation (94-97) % ABG Hematocrit (34.0-46.0) % ABG Sodium (135-146) mmol/L ABG Potassium (3.4-4.5) mmol/L ABG Ionized Calcium (4.5-5.3) mg/dL ABG Glucose (75-99) mg/dL ABG Lactic Acid (0.5-1.6) mmol/L VBG pCO2 (37-51) mmHg VBG HCO3 (24-28) mmol/L Hemoglobin (13.0-17.5) gm/dL Sodium 136 L (137-145) mmol/L Potassium (3.5-5.1) mmol/L Chloride (98-107) mmol/L Carbon Dioxide (22-30) mmol/L BUN 21 H (9-20) mg/dL Creatinine (0.66-1.25) mg/dL Glucose (74-99) mg/dL POC Glucose (mg/dL) 100 H (75-99) mg/dL Calcium (8.4-10.2) mg/dL Magnesium 2.4 H (1.6-2.3) mg/dL AST (17-59) U/L ALT (4-49) U/L Alkaline Phosphatase <20 L (38-126) U/L Total Protein 4.3 L (6.3-8.2) g/dL Albumin 2.7 L (3.5-5.0) g/dL Arterial Blood Potassium (3.4-4.5) mmol/L Arterial Blood Glucose (75-99) mg/dL Crossmatch 07/22/21 07/22/21 07/22/21 Range/Units 17:57 18:52 19:44 RBC (4.30-5.90) m/uL Hgb (13.0-17.5) gm/dL Hct (39.0-53.0) % Plt Count (150-450) k/uL Lymphocytes # (1.0-4.8) k/uL Lymphocytes # (Manual) (1.0-4.8) k/uL PT (9.0-12.0) sec INR (<1.2) APTT (22.0-30.0) sec ABG pH (7.35-7.45) ABG pCO2 (35-45) mmHg ABG pO2 (83-108) mmHg ABG HCO3 (21-25) mmol/L ABG Total CO2 (19-24) mmol/L ABG O2 Saturation (94-97) % ABG Hematocrit (34.0-46.0) % ABG Sodium (135-146) mmol/L ABG Potassium (3.4-4.5) mmol/L ABG Ionized Calcium (4.5-5.3) mg/dL ABG Glucose (75-99) mg/dL ABG Lactic Acid (0.5-1.6) mmol/L VBG pCO2 (37-51) mmHg VBG HCO3 (24-28) mmol/L Hemoglobin (13.0-17.5) gm/dL Sodium (137-145) mmol/L Potassium (3.5-5.1) mmol/L Chloride (98-107) mmol/L Carbon Dioxide (22-30) mmol/L BUN (9-20) mg/dL Creatinine (0.66-1.25) mg/dL Glucose (74-99) mg/dL POC Glucose (mg/dL) 108 H 134 H 134 H (75-99) mg/dL Calcium (8.4-10.2) mg/dL Magnesium (1.6-2.3) mg/dL AST (17-59) U/L ALT (4-49) U/L Alkaline Phosphatase (38-126) U/L Total Protein (6.3-8.2) g/dL Albumin (3.5-5.0) g/dL Arterial Blood Potassium (3.4-4.5) mmol/L Arterial Blood Glucose (75-99) mg/dL Crossmatch 07/22/21 07/22/21 07/22/21 Range/Units 19:54 21:11 22:02 RBC 2.26 L (4.30-5.90) m/uL Hgb 7.5 L (13.0-17.5) gm/dL Hct 22.5 L (39.0-53.0) % Plt Count 104 L (150-450) k/uL Lymphocytes # (1.0-4.8) k/uL Lymphocytes # (Manual) 0.38 L (1.0-4.8) k/uL PT (9.0-12.0) sec INR (<1.2) APTT (22.0-30.0) sec ABG pH 7.46 H (7.35-7.45) ABG pCO2 33 L (35-45) mmHg ABG pO2 (83-108) mmHg ABG HCO3 (21-25) mmol/L ABG Total CO2 (19-24) mmol/L ABG O2 Saturation 98.7 H (94-97) % ABG Hematocrit (34.0-46.0) % ABG Sodium (135-146) mmol/L ABG Potassium (3.4-4.5) mmol/L ABG Ionized Calcium (4.5-5.3) mg/dL ABG Glucose (75-99) mg/dL ABG Lactic Acid (0.5-1.6) mmol/L VBG pCO2 (37-51) mmHg VBG HCO3 (24-28) mmol/L Hemoglobin (13.0-17.5) gm/dL Sodium (137-145) mmol/L Potassium (3.5-5.1) mmol/L Chloride (98-107) mmol/L Carbon Dioxide (22-30) mmol/L BUN (9-20) mg/dL Creatinine (0.66-1.25) mg/dL Glucose (74-99) mg/dL POC Glucose (mg/dL) 140 H (75-99) mg/dL Calcium (8.4-10.2) mg/dL Magnesium (1.6-2.3) mg/dL AST (17-59) U/L ALT (4-49) U/L Alkaline Phosphatase (38-126) U/L Total Protein (6.3-8.2) g/dL Albumin (3.5-5.0) g/dL Arterial Blood Potassium (3.4-4.5) mmol/L Arterial Blood Glucose (75-99) mg/dL Crossmatch 07/22/21 07/22/21 07/22/21 Range/Units 22:34 22:45 23:58 RBC 2.29 L (4.30-5.90) m/uL Hgb 7.4 L (13.0-17.5) gm/dL Hct 22.3 L (39.0-53.0) % Plt Count 102 L (150-450) k/uL Lymphocytes # 0.6 L (1.0-4.8) k/uL Lymphocytes # (Manual) (1.0-4.8) k/uL PT (9.0-12.0) sec INR (<1.2) APTT (22.0-30.0) sec ABG pH (7.35-7.45) ABG pCO2 (35-45) mmHg ABG pO2 (83-108) mmHg ABG HCO3 (21-25) mmol/L ABG Total CO2 (19-24) mmol/L ABG O2 Saturation (94-97) % ABG Hematocrit (34.0-46.0) % ABG Sodium (135-146) mmol/L ABG Potassium (3.4-4.5) mmol/L ABG Ionized Calcium (4.5-5.3) mg/dL ABG Glucose (75-99) mg/dL ABG Lactic Acid (0.5-1.6) mmol/L VBG pCO2 (37-51) mmHg VBG HCO3 (24-28) mmol/L Hemoglobin (13.0-17.5) gm/dL Sodium (137-145) mmol/L Potassium (3.5-5.1) mmol/L Chloride (98-107) mmol/L Carbon Dioxide (22-30) mmol/L BUN (9-20) mg/dL Creatinine (0.66-1.25) mg/dL Glucose (74-99) mg/dL POC Glucose (mg/dL) 149 H 147 H (75-99) mg/dL Calcium (8.4-10.2) mg/dL Magnesium (1.6-2.3) mg/dL AST (17-59) U/L ALT (4-49) U/L Alkaline Phosphatase (38-126) U/L Total Protein (6.3-8.2) g/dL Albumin (3.5-5.0) g/dL Arterial Blood Potassium (3.4-4.5) mmol/L Arterial Blood Glucose (75-99) mg/dL Crossmatch 07/23/21 07/23/21 07/23/21 Range/Units 01:49 02:45 03:20 RBC (4.30-5.90) m/uL Hgb (13.0-17.5) gm/dL Hct (39.0-53.0) % Plt Count (150-450) k/uL Lymphocytes # (1.0-4.8) k/uL Lymphocytes # (Manual) (1.0-4.8) k/uL PT (9.0-12.0) sec INR (<1.2) APTT (22.0-30.0) sec ABG pH (7.35-7.45) ABG pCO2 30 L (35-45) mmHg ABG pO2 82 L (83-108) mmHg ABG HCO3 (21-25) mmol/L ABG Total CO2 (19-24) mmol/L ABG O2 Saturation 97.2 H (94-97) % ABG Hematocrit (34.0-46.0) % ABG Sodium (135-146) mmol/L ABG Potassium (3.4-4.5) mmol/L ABG Ionized Calcium (4.5-5.3) mg/dL ABG Glucose (75-99) mg/dL ABG Lactic Acid (0.5-1.6) mmol/L VBG pCO2 (37-51) mmHg VBG HCO3 (24-28) mmol/L Hemoglobin (13.0-17.5) gm/dL Sodium (137-145) mmol/L Potassium (3.5-5.1) mmol/L Chloride (98-107) mmol/L Carbon Dioxide (22-30) mmol/L BUN (9-20) mg/dL Creatinine (0.66-1.25) mg/dL Glucose (74-99) mg/dL POC Glucose (mg/dL) 157 H 170 H (75-99) mg/dL Calcium (8.4-10.2) mg/dL Magnesium (1.6-2.3) mg/dL AST (17-59) U/L ALT (4-49) U/L Alkaline Phosphatase (38-126) U/L Total Protein (6.3-8.2) g/dL Albumin (3.5-5.0) g/dL Arterial Blood Potassium (3.4-4.5) mmol/L Arterial Blood Glucose (75-99) mg/dL Crossmatch 07/23/21 07/23/21 07/23/21 Range/Units 03:21 03:21 04:21 RBC 2.31 L (4.30-5.90) m/uL Hgb 7.3 L (13.0-17.5) gm/dL Hct 23.0 L (39.0-53.0) % Plt Count 108 L (150-450) k/uL Lymphocytes # 0.5 L (1.0-4.8) k/uL Lymphocytes # (Manual) (1.0-4.8) k/uL PT (9.0-12.0) sec INR (<1.2) APTT (22.0-30.0) sec ABG pH (7.35-7.45) ABG pCO2 (35-45) mmHg ABG pO2 (83-108) mmHg ABG HCO3 (21-25) mmol/L ABG Total CO2 (19-24) mmol/L ABG O2 Saturation (94-97) % ABG Hematocrit (34.0-46.0) % ABG Sodium (135-146) mmol/L ABG Potassium (3.4-4.5) mmol/L ABG Ionized Calcium (4.5-5.3) mg/dL ABG Glucose (75-99) mg/dL ABG Lactic Acid (0.5-1.6) mmol/L VBG pCO2 (37-51) mmHg VBG HCO3 (24-28) mmol/L Hemoglobin (13.0-17.5) gm/dL Sodium 134 L (137-145) mmol/L Potassium 6.3 H* (3.5-5.1) mmol/L Chloride (98-107) mmol/L Carbon Dioxide 20 L (22-30) mmol/L BUN 21 H (9-20) mg/dL Creatinine 1.55 H (0.66-1.25) mg/dL Glucose 150 H (74-99) mg/dL POC Glucose (mg/dL) 167 H (75-99) mg/dL Calcium 8.1 L (8.4-10.2) mg/dL Magnesium (1.6-2.3) mg/dL AST 568 H (17-59) U/L ALT 343 H (4-49) U/L Alkaline Phosphatase 20 L (38-126) U/L Total Protein 4.5 L (6.3-8.2) g/dL Albumin 3.0 L (3.5-5.0) g/dL Arterial Blood Potassium (3.4-4.5) mmol/L Arterial Blood Glucose (75-99) mg/dL Crossmatch 07/23/21 07/23/21 07/23/21 Range/Units 04:25 05:40 06:51 RBC (4.30-5.90) m/uL Hgb (13.0-17.5) gm/dL Hct (39.0-53.0) % Plt Count (150-450) k/uL Lymphocytes # (1.0-4.8) k/uL Lymphocytes # (Manual) (1.0-4.8) k/uL PT (9.0-12.0) sec INR (<1.2) APTT (22.0-30.0) sec ABG pH (7.35-7.45) ABG pCO2 (35-45) mmHg ABG pO2 (83-108) mmHg ABG HCO3 (21-25) mmol/L ABG Total CO2 (19-24) mmol/L ABG O2 Saturation (94-97) % ABG Hematocrit (34.0-46.0) % ABG Sodium (135-146) mmol/L ABG Potassium (3.4-4.5) mmol/L ABG Ionized Calcium (4.5-5.3) mg/dL ABG Glucose (75-99) mg/dL ABG Lactic Acid (0.5-1.6) mmol/L VBG pCO2 (37-51) mmHg VBG HCO3 (24-28) mmol/L Hemoglobin (13.0-17.5) gm/dL Sodium (137-145) mmol/L Potassium 6.0 H (3.5-5.1) mmol/L Chloride (98-107) mmol/L Carbon Dioxide (22-30) mmol/L BUN (9-20) mg/dL Creatinine (0.66-1.25) mg/dL Glucose (74-99) mg/dL POC Glucose (mg/dL) 126 H 127 H (75-99) mg/dL Calcium (8.4-10.2) mg/dL Magnesium (1.6-2.3) mg/dL AST (17-59) U/L ALT (4-49) U/L Alkaline Phosphatase (38-126) U/L Total Protein (6.3-8.2) g/dL Albumin (3.5-5.0) g/dL Arterial Blood Potassium (3.4-4.5) mmol/L Arterial Blood Glucose (75-99) mg/dL Crossmatch 07/23/21 07/23/21 07/23/21 Range/Units 08:47 08:48 09:04 RBC (4.30-5.90) m/uL Hgb (13.0-17.5) gm/dL Hct (39.0-53.0) % Plt Count (150-450) k/uL Lymphocytes # (1.0-4.8) k/uL Lymphocytes # (Manual) (1.0-4.8) k/uL PT (9.0-12.0) sec INR (<1.2) APTT (22.0-30.0) sec ABG pH (7.35-7.45) ABG pCO2 30 L (35-45) mmHg ABG pO2 (83-108) mmHg ABG HCO3 20 L (21-25) mmol/L ABG Total CO2 (19-24) mmol/L ABG O2 Saturation 97.6 H (94-97) % ABG Hematocrit (34.0-46.0) % ABG Sodium (135-146) mmol/L ABG Potassium (3.4-4.5) mmol/L ABG Ionized Calcium (4.5-5.3) mg/dL ABG Glucose (75-99) mg/dL ABG Lactic Acid (0.5-1.6) mmol/L VBG pCO2 (37-51) mmHg VBG HCO3 (24-28) mmol/L Hemoglobin (13.0-17.5) gm/dL Sodium 136 L (137-145) mmol/L Potassium (3.5-5.1) mmol/L Chloride 110 H (98-107) mmol/L Carbon Dioxide 20 L (22-30) mmol/L BUN 22 H (9-20) mg/dL Creatinine 1.62 H (0.66-1.25) mg/dL Glucose 127 H (74-99) mg/dL POC Glucose (mg/dL) 127 H (75-99) mg/dL Calcium 8.3 L (8.4-10.2) mg/dL Magnesium (1.6-2.3) mg/dL AST (17-59) U/L ALT (4-49) U/L Alkaline Phosphatase (38-126) U/L Total Protein (6.3-8.2) g/dL Albumin (3.5-5.0) g/dL Arterial Blood Potassium (3.4-4.5) mmol/L Arterial Blood Glucose (75-99) mg/dL Crossmatch 07/23/21 Range/Units 09:05 RBC (4.30-5.90) m/uL Hgb (13.0-17.5) gm/dL Hct (39.0-53.0) % Plt Count (150-450) k/uL Lymphocytes # (1.0-4.8) k/uL Lymphocytes # (Manual) (1.0-4.8) k/uL PT (9.0-12.0) sec INR (<1.2) APTT (22.0-30.0) sec ABG pH (7.35-7.45) ABG pCO2 (35-45) mmHg ABG pO2 (83-108) mmHg ABG HCO3 (21-25) mmol/L ABG Total CO2 (19-24) mmol/L ABG O2 Saturation (94-97) % ABG Hematocrit (34.0-46.0) % ABG Sodium (135-146) mmol/L ABG Potassium (3.4-4.5) mmol/L ABG Ionized Calcium (4.5-5.3) mg/dL ABG Glucose (75-99) mg/dL ABG Lactic Acid (0.5-1.6) mmol/L VBG pCO2 36 L (37-51) mmHg VBG HCO3 22 L (24-28) mmol/L Hemoglobin (13.0-17.5) gm/dL Sodium (137-145) mmol/L Potassium (3.5-5.1) mmol/L Chloride (98-107) mmol/L Carbon Dioxide (22-30) mmol/L BUN (9-20) mg/dL Creatinine (0.66-1.25) mg/dL Glucose (74-99) mg/dL POC Glucose (mg/dL) (75-99) mg/dL Calcium (8.4-10.2) mg/dL Magnesium (1.6-2.3) mg/dL AST (17-59) U/L ALT (4-49) U/L Alkaline Phosphatase (38-126) U/L Total Protein (6.3-8.2) g/dL Albumin (3.5-5.0) g/dL Arterial Blood Potassium (3.4-4.5) mmol/L Arterial Blood Glucose (75-99) mg/dL Crossmatch Assessment and Plan Assessment: 1 Acute non-ST segment elevated myocardial infarction and multivessel coronary artery disease and severe aortic valve stenosis, status post three-vessel c oronary artery bypass grafting with BAIN to the LAD, SVG to the OM 2 and OM 3, and aortic valve replacement on 07/22/2021. 2 Acute systolic congestive heart failure with an ejection fraction of 30-35%. His preop CT chest showed bilateral pleural effusions with cardiomegaly 3 Routine postoperative ventilator management successfully extubated on 07/22/2021 at 10:15 PM. Currently on 4 L nasal cannula. 4 Hypotension, multifactorial, related to postoperative bleeding, and poor ejection fraction currently on small dose of vasopressors in the form of norepinephrine at 0.14mics per kilogram per minute, vasopressin is at 0.03 units per minute, and Primacor 5 Acute hypoxic respiratory failure secondary to pulmonary edema. 6 Hypertension, history of 7 Hyperlipidemia 8 Diabetes mellitus type 2 9 Acute kidney injury likely cardiorenal and his kidney function has been closely monitored 10 Acute blood loss anemia, expected outcome of surgery, current hemoglobin 7.3 Plan: The patient was seen and evaluated Chest x-ray, ABGs and labs reviewed May trial BiPAP for improved cardiac output Wean the pressors as tolerated Continue Primacor for now Continue close hemodynamic monitoring Continue to titrate the FiO2 as tolerated Continue bronchodilators Plan is for one unit of packed red blood cells today We will continue to monitor him closely here in the ICU. We will continue to follow and make further recommendations based on his clinical status I, the cosigning physician, performed a history & physical examination of the patient. Lungs sounds with crackles in the bilateral bases. Maintaining good O2 saturations in the 90s on 4 L high flow nasal cannula. I discussed the assessment and plan of care with my nurse practitioner, Duyen Mathew. I attest to the above note as dictated by her.
[2021-07-23] MEDS: CLOPIDOGREL 75 MG TAB PO SCH (10:58)
[2021-07-23] MEDS: ASPIRIN 325 MG TAB PO SCH (10:58)
--- NOTE | 2021-07-23 11:18 | P.PN ---
Subjective Patient is extubated Tachypneic and short of breath sitting in a chair On examination respiratory rate is 40 pulse rate in the 80s temperature 99.1 Blood pressure 120/66 Reduced breath sounds bilaterally on exam Labs sodium 136 potassium 5.0 BUN 22 creatinine 1.6 Postoperative hemoglobin is 7.4 Yesterday it was 12.5 Impression Coronary artery disease Ischemic cardio myopathy Congestive heart failure preoperatively with shortness of breath with minimal exertion Low cardiac output postoperatively Drop in hemoglobin from 12.5-7.5 Worsening liver function AST 568 and ALT 343 SVM in the 600s mean arterial pressure 60-70 Suggest Proceed with blood transfusion Maximize milrinone IV to improve cardiac output Keep SVR of the lower and as well as a mean arterial pressure on the lower end to maximize forward flow Patient is quite tachypneic at this time Will require IV diuretics later again Objective - Vital Signs Vital signs: Vital Signs Temp 99.1 F 07/23/21 10:41 Pulse 78 07/23/21 11:13 Resp 38 H 07/23/21 11:00 BP 121/66 07/23/21 11:00 Pulse Ox 100 07/23/21 11:00 Intake & Output 07/22/21 07/23/21 07/23/21 18:59 06:59 18:59 Intake Total 418.801 2091.043 588.474 Output Total 2720 1352 285 Balance -2355.608 68.043 303.474 Intake: IV 305.46 1089.59 303.27 ACETAMINOPHEN IV (For NPO 100 ) 1,000 mg In Empty Bag 1 bag @ 400 mls/hr IVPB Q6HR [facility] Rx#:[id number] CARDIAC OUTPUT 0.9 Sodium 40 200 40 Chloride Milrinone-D5w Pmx 20 mg 17.37 4.59 13.77 In Dextrose/Water 1 100ml .bag @ Per Protocol IV . Q0M [facility] Rx#:[id number] Nitroglycerin-D5w Pmx 50 4.5 1.5 mg In Dextrose/Water 1 250ml.bag @ 5 MCG/MIN 1.5 mls/hr IV .Q24H [facility] Rx#: [id number] PRESSURE BAG 0.9 Sodium 27 119 36 Chloride Potassium Chloride 20 meq 300 In Water For Injection 1 100ml.bag @ 50 mls/hr IVPB Q2H [facility] Rx#: [id number] Sodium Chloride 0.9% 1, 150 360 200 000 ml @ 50 mls/hr IV . Q20H [facility] Rx#:[id number] Sodium Chloride 0.9% 50 13.59 4.5 13.5 ml @ 0.03 UNITS/MIN 4.59 mls/hr IVPB .Q11H7M ONE with Vasopressin 20 unit Rx#:[id number] Intake, IV Titration 58.932 330.453 285.204 Amount Insulin Regular 100 unit 0.337 25.074 In Sodium Chloride 0.9% 100 ml @ Per Protocol IV .Q0M [facility] Rx#:[id number] Milrinone-D5w Pmx 20 mg 91.046 In Dextrose/Water 1 100ml .bag @ Per Protocol IV . Q0M [facility] Rx#:[id number] Norepinephrine 4 mg In 58.595 195.405 285.204 Sodium Chloride 0.9% 250 ml @ 0.02 MCG/KG/MIN 6. 934 mls/hr IV .Q24H [facility] Rx#:[id number] propofoL 1,000 mg In 18.928 Empty Bag 1 bag @ Titrate IV .Q0M [facility] Rx#: [id number] Blood Product 0 Rc Pheresis 2 As3 Unit 0 [id number] Output: Chest Tube Drainage 600 650 170 Chest Tube Left Lateral 170 190 80 Chest Chest Tube Mediastinal 270 360 90 Chest Tube Right Lateral 160 100 0 Chest Urine 920 702 115 Estimated Blood Loss 1200 Other: Voiding Method Indwelling Catheter Indwelling Catheter ABP, PAP, CO, CI - Last Documented Arterial Blood Pressure 123/39 Pulmonary Artery Pressure 42/13 Cardiac Output 4.6 Cardiac Index 2.2 - Labs CBC & Chem 7: 07/23/21 03:21 07/23/21 08:47 Labs: Abnormal Lab Results - Last 24 Hours (Table) 07/21/21 07/22/21 07/22/21 Range/Units 08:22 08:26 10:27 RBC (4.30-5.90) m/uL Hgb (13.0-17.5) gm/dL Hct (39.0-53.0) % Plt Count (150-450) k/uL Lymphocytes # (1.0-4.8) k/uL Lymphocytes # (Manual) (1.0-4.8) k/uL PT (9.0-12.0) sec INR (<1.2) APTT (22.0-30.0) sec ABG pH (7.35-7.45) ABG pCO2 (35-45) mmHg ABG pO2 240 H (83-108) mmHg ABG HCO3 26 H (21-25) mmol/L ABG Total CO2 27 H 26 H (19-24) mmol/L ABG O2 Saturation 98.1 H 99.6 H (94-97) % ABG Hematocrit 31 L (34.0-46.0) % ABG Sodium (135-146) mmol/L ABG Potassium (3.4-4.5) mmol/L ABG Ionized Calcium (4.5-5.3) mg/dL ABG Glucose 160 H 170 H (75-99) mg/dL ABG Lactic Acid (0.5-1.6) mmol/L VBG pCO2 (37-51) mmHg VBG HCO3 (24-28) mmol/L Hemoglobin 11.7 L 10.2 L (13.0-17.5) gm/dL Sodium (137-145) mmol/L Potassium (3.5-5.1) mmol/L Chloride (98-107) mmol/L Carbon Dioxide (22-30) mmol/L BUN (9-20) mg/dL Creatinine (0.66-1.25) mg/dL Glucose (74-99) mg/dL POC Glucose (mg/dL) (75-99) mg/dL Calcium (8.4-10.2) mg/dL Magnesium (1.6-2.3) mg/dL AST (17-59) U/L ALT (4-49) U/L Alkaline Phosphatase (38-126) U/L Total Protein (6.3-8.2) g/dL Albumin (3.5-5.0) g/dL Arterial Blood Potassium (3.4-4.5) mmol/L Arterial Blood Glucose 160 H 170 H (75-99) mg/dL Crossmatch See Detail 07/22/21 07/22/21 07/22/21 Range/Units 11:20 12:08 12:37 RBC (4.30-5.90) m/uL Hgb (13.0-17.5) gm/dL Hct (39.0-53.0) % Plt Count (150-450) k/uL Lymphocytes # (1.0-4.8) k/uL Lymphocytes # (Manual) (1.0-4.8) k/uL PT (9.0-12.0) sec INR (<1.2) APTT (22.0-30.0) sec ABG pH (7.35-7.45) ABG pCO2 (35-45) mmHg ABG pO2 394 H 235 H 223 H (83-108) mmHg ABG HCO3 26 H (21-25) mmol/L ABG Total CO2 25 H 26 H 27 H (19-24) mmol/L ABG O2 Saturation 100.0 H 99.7 H 99.9 H (94-97) % ABG Hematocrit 24 L 24 L 23 L (34.0-46.0) % ABG Sodium 134 L (135-146) mmol/L ABG Potassium (3.4-4.5) mmol/L ABG Ionized Calcium 4.2 L 4.3 L 4.3 L (4.5-5.3) mg/dL ABG Glucose 160 H 147 H 146 H (75-99) mg/dL ABG Lactic Acid (0.5-1.6) mmol/L VBG pCO2 (37-51) mmHg VBG HCO3 (24-28) mmol/L Hemoglobin 7.9 L 7.8 L 7.6 L (13.0-17.5) gm/dL Sodium (137-145) mmol/L Potassium (3.5-5.1) mmol/L Chloride (98-107) mmol/L Carbon Dioxide (22-30) mmol/L BUN (9-20) mg/dL Creatinine (0.66-1.25) mg/dL Glucose (74-99) mg/dL POC Glucose (mg/dL) (75-99) mg/dL Calcium (8.4-10.2) mg/dL Magnesium (1.6-2.3) mg/dL AST (17-59) U/L ALT (4-49) U/L Alkaline Phosphatase (38-126) U/L Total Protein (6.3-8.2) g/dL Albumin (3.5-5.0) g/dL Arterial Blood Potassium (3.4-4.5) mmol/L Arterial Blood Glucose 160 H 147 H 146 H (75-99) mg/dL Crossmatch 07/22/21 07/22/21 07/22/21 Range/Units 13:20 13:52 15:04 RBC (4.30-5.90) m/uL Hgb (13.0-17.5) gm/dL Hct (39.0-53.0) % Plt Count (150-450) k/uL Lymphocytes # (1.0-4.8) k/uL Lymphocytes # (Manual) (1.0-4.8) k/uL PT (9.0-12.0) sec INR (<1.2) APTT (22.0-30.0) sec ABG pH (7.35-7.45) ABG pCO2 (35-45) mmHg ABG pO2 326 H 378 H 64 L (83-108) mmHg ABG HCO3 26 H 26 H (21-25) mmol/L ABG Total CO2 27 H 27 H (19-24) mmol/L ABG O2 Saturation 99.9 H 100.0 H 91.5 L (94-97) % ABG Hematocrit 23 L 23 L 21 L (34.0-46.0) % ABG Sodium (135-146) mmol/L ABG Potassium 4.6 H (3.4-4.5) mmol/L ABG Ionized Calcium 4.2 L 4.2 L (4.5-5.3) mg/dL ABG Glucose 136 H 142 H 161 H (75-99) mg/dL ABG Lactic Acid 1.7 H 2.3 H* 3.6 H* (0.5-1.6) mmol/L VBG pCO2 (37-51) mmHg VBG HCO3 (24-28) mmol/L Hemoglobin 7.5 L 7.3 L 7.0 L* (13.0-17.5) gm/dL Sodium (137-145) mmol/L Potassium (3.5-5.1) mmol/L Chloride (98-107) mmol/L Carbon Dioxide (22-30) mmol/L BUN (9-20) mg/dL Creatinine (0.66-1.25) mg/dL Glucose (74-99) mg/dL POC Glucose (mg/dL) (75-99) mg/dL Calcium (8.4-10.2) mg/dL Magnesium (1.6-2.3) mg/dL AST (17-59) U/L ALT (4-49) U/L Alkaline Phosphatase (38-126) U/L Total Protein (6.3-8.2) g/dL Albumin (3.5-5.0) g/dL Arterial Blood Potassium 4.6 H (3.4-4.5) mmol/L Arterial Blood Glucose 136 H 142 H 161 H (75-99) mg/dL Crossmatch 07/22/21 07/22/21 07/22/21 Range/Units 15:40 16:35 16:35 RBC 2.35 L (4.30-5.90) m/uL Hgb 7.6 L D (13.0-17.5) gm/dL Hct 23.3 L (39.0-53.0) % Plt Count 83 L D (150-450) k/uL Lymphocytes # 0.7 L (1.0-4.8) k/uL Lymphocytes # (Manual) (1.0-4.8) k/uL PT 14.2 H (9.0-12.0) sec INR 1.4 H (<1.2) APTT 38.6 H (22.0-30.0) sec ABG pH (7.35-7.45) ABG pCO2 (35-45) mmHg ABG pO2 59 L* (83-108) mmHg ABG HCO3 26 H (21-25) mmol/L ABG Total CO2 27 H (19-24) mmol/L ABG O2 Saturation 92.5 L (94-97) % ABG Hematocrit 23 L (34.0-46.0) % ABG Sodium (135-146) mmol/L ABG Potassium (3.4-4.5) mmol/L ABG Ionized Calcium (4.5-5.3) mg/dL ABG Glucose 119 H (75-99) mg/dL ABG Lactic Acid 3.3 H* (0.5-1.6) mmol/L VBG pCO2 (37-51) mmHg VBG HCO3 (24-28) mmol/L Hemoglobin 7.6 L (13.0-17.5) gm/dL Sodium (137-145) mmol/L Potassium (3.5-5.1) mmol/L Chloride (98-107) mmol/L Carbon Dioxide (22-30) mmol/L BUN (9-20) mg/dL Creatinine (0.66-1.25) mg/dL Glucose (74-99) mg/dL POC Glucose (mg/dL) (75-99) mg/dL Calcium (8.4-10.2) mg/dL Magnesium (1.6-2.3) mg/dL AST (17-59) U/L ALT (4-49) U/L Alkaline Phosphatase (38-126) U/L Total Protein (6.3-8.2) g/dL Albumin (3.5-5.0) g/dL Arterial Blood Potassium (3.4-4.5) mmol/L Arterial Blood Glucose 119 H (75-99) mg/dL Crossmatch 07/22/21 07/22/21 07/22/21 Range/Units 16:35 16:35 16:47 RBC (4.30-5.90) m/uL Hgb (13.0-17.5) gm/dL Hct (39.0-53.0) % Plt Count (150-450) k/uL Lymphocytes # (1.0-4.8) k/uL Lymphocytes # (Manual) (1.0-4.8) k/uL PT (9.0-12.0) sec INR (<1.2) APTT (22.0-30.0) sec ABG pH (7.35-7.45) ABG pCO2 (35-45) mmHg ABG pO2 76 L (83-108) mmHg ABG HCO3 (21-25) mmol/L ABG Total CO2 27 H (19-24) mmol/L ABG O2 Saturation (94-97) % ABG Hematocrit (34.0-46.0) % ABG Sodium (135-146) mmol/L ABG Potassium (3.4-4.5) mmol/L ABG Ionized Calcium (4.5-5.3) mg/dL ABG Glucose (75-99) mg/dL ABG Lactic Acid (0.5-1.6) mmol/L VBG pCO2 (37-51) mmHg VBG HCO3 (24-28) mmol/L Hemoglobin (13.0-17.5) gm/dL Sodium 136 L (137-145) mmol/L Potassium (3.5-5.1) mmol/L Chloride (98-107) mmol/L Carbon Dioxide (22-30) mmol/L BUN 21 H (9-20) mg/dL Creatinine (0.66-1.25) mg/dL Glucose (74-99) mg/dL POC Glucose (mg/dL) 100 H (75-99) mg/dL Calcium (8.4-10.2) mg/dL Magnesium 2.4 H (1.6-2.3) mg/dL AST (17-59) U/L ALT (4-49) U/L Alkaline Phosphatase <20 L (38-126) U/L Total Protein 4.3 L (6.3-8.2) g/dL Albumin 2.7 L (3.5-5.0) g/dL Arterial Blood Potassium (3.4-4.5) mmol/L Arterial Blood Glucose (75-99) mg/dL Crossmatch 07/22/21 07/22/21 07/22/21 Range/Units 17:57 18:52 19:44 RBC (4.30-5.90) m/uL Hgb (13.0-17.5) gm/dL Hct (39.0-53.0) % Plt Count (150-450) k/uL Lymphocytes # (1.0-4.8) k/uL Lymphocytes # (Manual) (1.0-4.8) k/uL PT (9.0-12.0) sec INR (<1.2) APTT (22.0-30.0) sec ABG pH (7.35-7.45) ABG pCO2 (35-45) mmHg ABG pO2 (83-108) mmHg ABG HCO3 (21-25) mmol/L ABG Total CO2 (19-24) mmol/L ABG O2 Saturation (94-97) % ABG Hematocrit (34.0-46.0) % ABG Sodium (135-146) mmol/L ABG Potassium (3.4-4.5) mmol/L ABG Ionized Calcium (4.5-5.3) mg/dL ABG Glucose (75-99) mg/dL ABG Lactic Acid (0.5-1.6) mmol/L VBG pCO2 (37-51) mmHg VBG HCO3 (24-28) mmol/L Hemoglobin (13.0-17.5) gm/dL Sodium (137-145) mmol/L Potassium (3.5-5.1) mmol/L Chloride (98-107) mmol/L Carbon Dioxide (22-30) mmol/L BUN (9-20) mg/dL Creatinine (0.66-1.25) mg/dL Glucose (74-99) mg/dL POC Glucose (mg/dL) 108 H 134 H 134 H (75-99) mg/dL Calcium (8.4-10.2) mg/dL Magnesium (1.6-2.3) mg/dL AST (17-59) U/L ALT (4-49) U/L Alkaline Phosphatase (38-126) U/L Total Protein (6.3-8.2) g/dL Albumin (3.5-5.0) g/dL Arterial Blood Potassium (3.4-4.5) mmol/L Arterial Blood Glucose (75-99) mg/dL Crossmatch 07/22/21 07/22/21 07/22/21 Range/Units 19:54 21:11 22:02 RBC 2.26 L (4.30-5.90) m/uL Hgb 7.5 L (13.0-17.5) gm/dL Hct 22.5 L (39.0-53.0) % Plt Count 104 L (150-450) k/uL Lymphocytes # (1.0-4.8) k/uL Lymphocytes # (Manual) 0.38 L (1.0-4.8) k/uL PT (9.0-12.0) sec INR (<1.2) APTT (22.0-30.0) sec ABG pH 7.46 H (7.35-7.45) ABG pCO2 33 L (35-45) mmHg ABG pO2 (83-108) mmHg ABG HCO3 (21-25) mmol/L ABG Total CO2 (19-24) mmol/L ABG O2 Saturation 98.7 H (94-97) % ABG Hematocrit (34.0-46.0) % ABG Sodium (135-146) mmol/L ABG Potassium (3.4-4.5) mmol/L ABG Ionized Calcium (4.5-5.3) mg/dL ABG Glucose (75-99) mg/dL ABG Lactic Acid (0.5-1.6) mmol/L VBG pCO2 (37-51) mmHg VBG HCO3 (24-28) mmol/L Hemoglobin (13.0-17.5) gm/dL Sodium (137-145) mmol/L Potassium (3.5-5.1) mmol/L Chloride (98-107) mmol/L Carbon Dioxide (22-30) mmol/L BUN (9-20) mg/dL Creatinine (0.66-1.25) mg/dL Glucose (74-99) mg/dL POC Glucose (mg/dL) 140 H (75-99) mg/dL Calcium (8.4-10.2) mg/dL Magnesium (1.6-2.3) mg/dL AST (17-59) U/L ALT (4-49) U/L Alkaline Phosphatase (38-126) U/L Total Protein (6.3-8.2) g/dL Albumin (3.5-5.0) g/dL Arterial Blood Potassium (3.4-4.5) mmol/L Arterial Blood Glucose (75-99) mg/dL Crossmatch 07/22/21 07/22/21 07/22/21 Range/Units 22:34 22:45 23:58 RBC 2.29 L (4.30-5.90) m/uL Hgb 7.4 L (13.0-17.5) gm/dL Hct 22.3 L (39.0-53.0) % Plt Count 102 L (150-450) k/uL Lymphocytes # 0.6 L (1.0-4.8) k/uL Lymphocytes # (Manual) (1.0-4.8) k/uL PT (9.0-12.0) sec INR (<1.2) APTT (22.0-30.0) sec ABG pH (7.35-7.45) ABG pCO2 (35-45) mmHg ABG pO2 (83-108) mmHg ABG HCO3 (21-25) mmol/L ABG Total CO2 (19-24) mmol/L ABG O2 Saturation (94-97) % ABG Hematocrit (34.0-46.0) % ABG Sodium (135-146) mmol/L ABG Potassium (3.4-4.5) mmol/L ABG Ionized Calcium (4.5-5.3) mg/dL ABG Glucose (75-99) mg/dL ABG Lactic Acid (0.5-1.6) mmol/L VBG pCO2 (37-51) mmHg VBG HCO3 (24-28) mmol/L Hemoglobin (13.0-17.5) gm/dL Sodium (137-145) mmol/L Potassium (3.5-5.1) mmol/L Chloride (98-107) mmol/L Carbon Dioxide (22-30) mmol/L BUN (9-20) mg/dL Creatinine (0.66-1.25) mg/dL Glucose (74-99) mg/dL POC Glucose (mg/dL) 149 H 147 H (75-99) mg/dL Calcium (8.4-10.2) mg/dL Magnesium (1.6-2.3) mg/dL AST (17-59) U/L ALT (4-49) U/L Alkaline Phosphatase (38-126) U/L Total Protein (6.3-8.2) g/dL Albumin (3.5-5.0) g/dL Arterial Blood Potassium (3.4-4.5) mmol/L Arterial Blood Glucose (75-99) mg/dL Crossmatch 07/23/21 07/23/21 07/23/21 Range/Units 01:49 02:45 03:20 RBC (4.30-5.90) m/uL Hgb (13.0-17.5) gm/dL Hct (39.0-53.0) % Plt Count (150-450) k/uL Lymphocytes # (1.0-4.8) k/uL Lymphocytes # (Manual) (1.0-4.8) k/uL PT (9.0-12.0) sec INR (<1.2) APTT (22.0-30.0) sec ABG pH (7.35-7.45) ABG pCO2 30 L (35-45) mmHg ABG pO2 82 L (83-108) mmHg ABG HCO3 (21-25) mmol/L ABG Total CO2 (19-24) mmol/L ABG O2 Saturation 97.2 H (94-97) % ABG Hematocrit (34.0-46.0) % ABG Sodium (135-146) mmol/L ABG Potassium (3.4-4.5) mmol/L ABG Ionized Calcium (4.5-5.3) mg/dL ABG Glucose (75-99) mg/dL ABG Lactic Acid (0.5-1.6) mmol/L VBG pCO2 (37-51) mmHg VBG HCO3 (24-28) mmol/L Hemoglobin (13.0-17.5) gm/dL Sodium (137-145) mmol/L Potassium (3.5-5.1) mmol/L Chloride (98-107) mmol/L Carbon Dioxide (22-30) mmol/L BUN (9-20) mg/dL Creatinine (0.66-1.25) mg/dL Glucose (74-99) mg/dL POC Glucose (mg/dL) 157 H 170 H (75-99) mg/dL Calcium (8.4-10.2) mg/dL Magnesium (1.6-2.3) mg/dL AST (17-59) U/L ALT (4-49) U/L Alkaline Phosphatase (38-126) U/L Total Protein (6.3-8.2) g/dL Albumin (3.5-5.0) g/dL Arterial Blood Potassium (3.4-4.5) mmol/L Arterial Blood Glucose (75-99) mg/dL Crossmatch 07/23/21 07/23/21 07/23/21 Range/Units 03:21 03:21 04:21 RBC 2.31 L (4.30-5.90) m/uL Hgb 7.3 L (13.0-17.5) gm/dL Hct 23.0 L (39.0-53.0) % Plt Count 108 L (150-450) k/uL Lymphocytes # 0.5 L (1.0-4.8) k/uL Lymphocytes # (Manual) (1.0-4.8) k/uL PT (9.0-12.0) sec INR (<1.2) APTT (22.0-30.0) sec ABG pH (7.35-7.45) ABG pCO2 (35-45) mmHg ABG pO2 (83-108) mmHg ABG HCO3 (21-25) mmol/L ABG Total CO2 (19-24) mmol/L ABG O2 Saturation (94-97) % ABG Hematocrit (34.0-46.0) % ABG Sodium (135-146) mmol/L ABG Potassium (3.4-4.5) mmol/L ABG Ionized Calcium (4.5-5.3) mg/dL ABG Glucose (75-99) mg/dL ABG Lactic Acid (0.5-1.6) mmol/L VBG pCO2 (37-51) mmHg VBG HCO3 (24-28) mmol/L Hemoglobin (13.0-17.5) gm/dL Sodium 134 L (137-145) mmol/L Potassium 6.3 H* (3.5-5.1) mmol/L Chloride (98-107) mmol/L Carbon Dioxide 20 L (22-30) mmol/L BUN 21 H (9-20) mg/dL Creatinine 1.55 H (0.66-1.25) mg/dL Glucose 150 H (74-99) mg/dL POC Glucose (mg/dL) 167 H (75-99) mg/dL Calcium 8.1 L (8.4-10.2) mg/dL Magnesium (1.6-2.3) mg/dL AST 568 H (17-59) U/L ALT 343 H (4-49) U/L Alkaline Phosphatase 20 L (38-126) U/L Total Protein 4.5 L (6.3-8.2) g/dL Albumin 3.0 L (3.5-5.0) g/dL Arterial Blood Potassium (3.4-4.5) mmol/L Arterial Blood Glucose (75-99) mg/dL Crossmatch 07/23/21 07/23/21 07/23/21 Range/Units 04:25 05:40 06:51 RBC (4.30-5.90) m/uL Hgb (13.0-17.5) gm/dL Hct (39.0-53.0) % Plt Count (150-450) k/uL Lymphocytes # (1.0-4.8) k/uL Lymphocytes # (Manual) (1.0-4.8) k/uL PT (9.0-12.0) sec INR (<1.2) APTT (22.0-30.0) sec ABG pH (7.35-7.45) ABG pCO2 (35-45) mmHg ABG pO2 (83-108) mmHg ABG HCO3 (21-25) mmol/L ABG Total CO2 (19-24) mmol/L ABG O2 Saturation (94-97) % ABG Hematocrit (34.0-46.0) % ABG Sodium (135-146) mmol/L ABG Potassium (3.4-4.5) mmol/L ABG Ionized Calcium (4.5-5.3) mg/dL ABG Glucose (75-99) mg/dL ABG Lactic Acid (0.5-1.6) mmol/L VBG pCO2 (37-51) mmHg VBG HCO3 (24-28) mmol/L Hemoglobin (13.0-17.5) gm/dL Sodium (137-145) mmol/L Potassium 6.0 H (3.5-5.1) mmol/L Chloride (98-107) mmol/L Carbon Dioxide (22-30) mmol/L BUN (9-20) mg/dL Creatinine (0.66-1.25) mg/dL Glucose (74-99) mg/dL POC Glucose (mg/dL) 126 H 127 H (75-99) mg/dL Calcium (8.4-10.2) mg/dL Magnesium (1.6-2.3) mg/dL AST (17-59) U/L ALT (4-49) U/L Alkaline Phosphatase (38-126) U/L Total Protein (6.3-8.2) g/dL Albumin (3.5-5.0) g/dL Arterial Blood Potassium (3.4-4.5) mmol/L Arterial Blood Glucose (75-99) mg/dL Crossmatch 07/23/21 07/23/21 07/23/21 Range/Units 08:47 08:48 09:04 RBC (4.30-5.90) m/uL Hgb (13.0-17.5) gm/dL Hct (39.0-53.0) % Plt Count (150-450) k/uL Lymphocytes # (1.0-4.8) k/uL Lymphocytes # (Manual) (1.0-4.8) k/uL PT (9.0-12.0) sec INR (<1.2) APTT (22.0-30.0) sec ABG pH (7.35-7.45) ABG pCO2 30 L (35-45) mmHg ABG pO2 (83-108) mmHg ABG HCO3 20 L (21-25) mmol/L ABG Total CO2 (19-24) mmol/L ABG O2 Saturation 97.6 H (94-97) % ABG Hematocrit (34.0-46.0) % ABG Sodium (135-146) mmol/L ABG Potassium (3.4-4.5) mmol/L ABG Ionized Calcium (4.5-5.3) mg/dL ABG Glucose (75-99) mg/dL ABG Lactic Acid (0.5-1.6) mmol/L VBG pCO2 (37-51) mmHg VBG HCO3 (24-28) mmol/L Hemoglobin (13.0-17.5) gm/dL Sodium 136 L (137-145) mmol/L Potassium (3.5-5.1) mmol/L Chloride 110 H (98-107) mmol/L Carbon Dioxide 20 L (22-30) mmol/L BUN 22 H (9-20) mg/dL Creatinine 1.62 H (0.66-1.25) mg/dL Glucose 127 H (74-99) mg/dL POC Glucose (mg/dL) 127 H (75-99) mg/dL Calcium 8.3 L (8.4-10.2) mg/dL Magnesium (1.6-2.3) mg/dL AST (17-59) U/L ALT (4-49) U/L Alkaline Phosphatase (38-126) U/L Total Protein (6.3-8.2) g/dL Albumin (3.5-5.0) g/dL Arterial Blood Potassium (3.4-4.5) mmol/L Arterial Blood Glucose (75-99) mg/dL Crossmatch 07/23/21 07/23/21 Range/Units 09:05 10:31 RBC (4.30-5.90) m/uL Hgb (13.0-17.5) gm/dL Hct (39.0-53.0) % Plt Count (150-450) k/uL Lymphocytes # (1.0-4.8) k/uL Lymphocytes # (Manual) (1.0-4.8) k/uL PT (9.0-12.0) sec INR (<1.2) APTT (22.0-30.0) sec ABG pH (7.35-7.45) ABG pCO2 (35-45) mmHg ABG pO2 (83-108) mmHg ABG HCO3 (21-25) mmol/L ABG Total CO2 (19-24) mmol/L ABG O2 Saturation (94-97) % ABG Hematocrit (34.0-46.0) % ABG Sodium (135-146) mmol/L ABG Potassium (3.4-4.5) mmol/L ABG Ionized Calcium (4.5-5.3) mg/dL ABG Glucose (75-99) mg/dL ABG Lactic Acid (0.5-1.6) mmol/L VBG pCO2 36 L (37-51) mmHg VBG HCO3 22 L (24-28) mmol/L Hemoglobin (13.0-17.5) gm/dL Sodium (137-145) mmol/L Potassium (3.5-5.1) mmol/L Chloride (98-107) mmol/L Carbon Dioxide (22-30) mmol/L BUN (9-20) mg/dL Creatinine (0.66-1.25) mg/dL Glucose (74-99) mg/dL POC Glucose (mg/dL) 131 H (75-99) mg/dL Calcium (8.4-10.2) mg/dL Magnesium (1.6-2.3) mg/dL AST (17-59) U/L ALT (4-49) U/L Alkaline Phosphatase (38-126) U/L Total Protein (6.3-8.2) g/dL Albumin (3.5-5.0) g/dL Arterial Blood Potassium (3.4-4.5) mmol/L Arterial Blood Glucose (75-99) mg/dL Crossmatch
[2021-07-23 12:23] VITALS: BMI 27.9
--- NOTE | 2021-07-23 12:24 | PN ---
PROGRESS NOTE Patient is seen for followup for chronic kidney disease and acute kidney injury. He is status post coronary artery bypass surgery, postoperative day number 1. Patient had triple-vessel bypass performed. This morning his potassium was elevated at 6. It has now decreased to 5. He received IV treatment. Patient has had good urine output. He remains on small dose of Levophed and Primacor. On examination today, patient is extubated. He is sitting up. He is comfortable. Blood pressure is 121/66, heart rate 80 per minute. He is afebrile. EXAMINATION OF THE HEART: S1 and S2. EXAMINATION OF LUNGS: Decreased breath sounds at the bases. Abdomen is soft. Patient is confused. Examination of lower extremities shows edema 1+ bilaterally. Labs show sodium 136, potassium 5.0, chloride 110, BUN 22, creatinine 1.6. Hemoglobin was 7.3 g/dL. ASSESSMENT: 1. Chronic kidney disease, NKF stage 3 . Baseline creatinine around 1.5 to 1.6 mg/dL. Renal function currently not far from baseline. 2. Hyperkalemia postoperatively. No active GI bleed noted. Blood sugars are not significantly elevated. This was treated with IV medications. Patient had good urine output. We will continue to monitor for now. His hemoglobin did drop; therefore there is concern for possible underlying GI bleed/hematoma. He is being transfused one unit packed RBCs. 3. Anemia postoperatively, status post one unit packed RBCs. No obvious bleeding/hematoma noted at this time. PLAN: Repeat labs in a.m. Monitor for GI bleed. MMODL / IJN: [id number] /
[2021-07-23 12:38] LABS: Glucose,Whole Blood 135 mg/dL (75-99)
[2021-07-23] MEDS: ACETAMINOPHEN TAB 325 MG TAB PO PRN ×2 (13:00→20:35)
[2021-07-23 13:36] LABS: ABG Base Excess -1.8 mmol/L; ABG HCO3 23 mmol/L (21-25); ABG Oxygen Saturation 45.4 % (94-97); ABG PCO2 40 mmHg (35-45); ABG PH 7.38 (7.35-7.45); ABG TCO2 25 mmol/L (19-24)
[2021-07-23 13:39] LABS: ABG PO2 26 mmHg (83-108)
[2021-07-23 14:17] LABS: Glucose,Whole Blood 134 mg/dL (75-99)
[2021-07-23 14:39] LABS: Calcium 8.4 mg/dL (8.4-10.2); Potassium 5.1 mmol/L (3.5-5.1)
[2021-07-23 16:17] LABS: Glucose,Whole Blood 144 mg/dL (75-99)
[2021-07-23 17:59] LABS: Glucose,Whole Blood 137 mg/dL (75-99)
[2021-07-23 19:33] LABS: Glucose,Whole Blood 180 mg/dL (75-99)
[2021-07-23] MEDS: SENNOSIDES-DOCUSATE SODIUM 1 EACH TAB PO SCH (20:24)
[2021-07-23 20:58] LABS: Glucose,Whole Blood 155 mg/dL (75-99)
[2021-07-23] MEDS: INSULIN REGULAR 100 UNIT in SODIUM CHLORIDE 0.9% 100 ML IV SCH (22:14)
[2021-07-23 22:15] LABS: Glucose,Whole Blood 170 mg/dL (75-99)
--- NOTE | 2021-07-23 23:30 | P.PN ---
Subjective This is a pleasant 75 years old male with past medical history of Diabetes Mellitus, Hyperlipidemia, Hypertension Patient presents because of the progressive exertional dyspnea and decreased leg swelling over one month, bilateral leg swelling and bilateral neck pain. However yesterday he started getting orthopnea, he could not lay down and his w talita asked him to come to emergency room. Also patient is complaining of from dry cough and sore throat, mouth is making some clear phlegm. He denies chest pain or abdominal pain. No dizziness. He was complaining of from little diarrhea, he felt almost going to vomit this morning but did not. No urinary complaints. No weakness or numbness He denies smoking, alcohol or illicit drugs Vitals are stable and he is saturating 96% on room air. Labs were reviewed including unremarkable CBC except for mild lymphopenia at 0.7, INR is 1.0. Sodium is 124, carbon dioxide 17, creatinine 1.1, glucose 220 Liver enzymes not elevated. Troponin is high as 0.418, C-reactive protein 2.0. ProBNP is 4880 Coronavirus not detected. EKG showing normal sinus rhythm at 85 with first-degree AV block and incomplete right bundle branch block, no significant ST-T changes. Chest x-ray: Interstitial pulmonary edema with increased cardiomegaly In the emergency room patient was started on IV Lasix 40 mg every 8 hours and cardiology team were consulted. 07/17/2021 Patient breathing is better, he does not complain from jaw pain or neck pain anymore, he is breathing easier, less leg edema. Patient is continued on IV Lasix 40 mg twice daily, also he is on heparin drip His sodium is improved today to 1.7 however his creatinine went up to 1.4. Because of his worsening kidney function we hold his metformin and switch him to Amaryl 2 mg daily, patient informed of his uncontrolled diabetes as his hemoglobin A1c is a 42.6%. Echocardiogram showed ejection fraction of 30-35% with moderate mitral regurgitation, 2018 8 was 55-60% Patient possibly will go for cardiac cath tomorrow 07/18/2021 Patient feels better, his breathing is easier. He has no more jaw pain, leg swelling is significantly improved he has crepitationandonlyminimal. He has some wheezing during examination most likely secondary to his CHF, patient is nonsmoker with no history of COPD. He is hemodynamically stable, he is on room air. Creatinine is trending up 1.1, 1.4, and 1.58 today. However sodium significantly improved up to 133. His Lasix was switched to 40 mg by mouth daily. His glucose is controlled 136 and 142 after he was started on Amaryl today we will keep monitoring, metformin was held for his acute kidney injury. He has slight ejection fraction of 30-35% with moderate MR and he needs cardiac cath however it is on hold now to further evaluation for his kidney injury, most likely secondary to diuresis, nephrology team was consulted, renal ultrasound is pending. 81 mg 07/19/2021 Patient breathing is improved close to normal however he has some residual basal crepitation which is mild. Very minimal leg swelling. No much exertional dyspnea. And his diuretics are switched to oral dose again Lasix 40 mg daily His creatinine improved 1.3 from 1.8 yesterday. Glucose less than 150. After switching his metformin and to Amaryl 2 mg daily. Hemoglobin A1c is 8.6% Plan for him to go for cardiac cath today. Renal ultrasound showing no hydronephrosis. Tenderness on home dose of aspirin 81 mg, oral Lasix and metoprolol 07/20/2021 Today with minimal dyspnea however he still have bilateral basal crepitation and leg edema, he is saturating 95-96% on 2 L oxygen via nasal cannula. His creatinine slightly up to 1.5. Glucose controlled. Renal ultrasound showing no hydronephrosis. Cardiac cath yesterday showing severe triple coronary artery disease, referred to thoracic surgery been consulted for possible CABG 07/21/2021 Patient currently sitting in bed looks comfortable, no chest pain, no significant dyspnea. Using his incentive spirometry frequently. He is currently kept on heparin drip. Minimal leg swelling, mild basal crepitation. He is hemodynamically stable. He is saturating 97% on 2 L oxygen via nasal cannula. His sodium 132, creatinine improved to 1.28, glucose controlled while he is on Amaryl 2 mg. His metformin, metoprolol and lisinopril are on hold for hypertension acute kidney injury. Patient currently has been worked up for possible cardiac bypass surgery with cardiovascular surgery team on the case. 07/22/2021 Patient is going for cardiac bypass surgery today. This with no chest pain or dyspnea. Hemodynamically stable. Glucose controlled however it might be needed to be started on insulin drip. Most likely patient will go to the intensive care unit post procedure. We will follow up with him 07/23/2021 Patient status post multiple vessel coronary artery bypass grafting for severe triple coronary artery disease and aortic valve replacement for severe aortic stenosis and today is postop day #1. Patient was sitting in chair, awake but very drowsy however he is able to follow commands with minimal movement. Because of his generalized weakness. Patient has hypotension that required pressors in the form of vasodepressor at 0.03 and levophed at 0.14. Also he has some low-grade temperature at 100.9. He is tachypneic at 29, oxygen saturation and requirements is at 4 L/m. He developed postoperative hyperkalemia at 6.3, corrected with 10 units of insulin and D50 ample down to 5.1. He has drop of hemoglobin down to 7.3 and he is getting 1 unit of blood transfusion. Platelet count 108. Sodium is 132, creatinine 1.6 which is close to baseline as he has chronic kidney disease. Never enzymes significantly elevated with AST 568 and ALT 343. Chest x-ray showing no mild pulmonary vascular congestion and receives one-time dose of IV Lasix 20 mg Also he is on insulin drip while metformin and Amaryl are on hold. Blood pressure medication of metoprolol and lisinopril were held prior to surgery because of hypotension and acute kidney injury. Patient currently kept on home dose of aspirin 81 mg and added Mavik 75 mg Objective - Vital Signs Vital signs: Vital Signs Temp 99.1 F 07/23/21 10:41 Pulse 78 07/23/21 11:13 Resp 38 H 07/23/21 11:00 BP 121/66 07/23/21 11:00 Pulse Ox 100 07/23/21 11:00 Intake & Output 07/22/21 07/23/21 07/23/21 18:59 06:59 18:59 Intake Total 697.339 0871.043 588.474 Output Total 2720 1352 285 Balance -2355.608 68.043 303.474 Intake: IV 305.46 1089.59 303.27 ACETAMINOPHEN IV (For NPO 100 ) 1,000 mg In Empty Bag 1 bag @ 400 mls/hr IVPB Q6HR [facility] Rx#:[id number] CARDIAC OUTPUT 0.9 Sodium 40 200 40 Chloride Milrinone-D5w Pmx 20 mg 17.37 4.59 13.77 In Dextrose/Water 1 100ml .bag @ Per Protocol IV . Q0M [facility] Rx#:[id number] Nitroglycerin-D5w Pmx 50 4.5 1.5 mg In Dextrose/Water 1 250ml.bag @ 5 MCG/MIN 1.5 mls/hr IV .Q24H [facility] Rx#: [id number] PRESSURE BAG 0.9 Sodium 27 119 36 Chloride Potassium Chloride 20 meq 300 In Water For Injection 1 100ml.bag @ 50 mls/hr IVPB Q2H [facility] Rx#: [id number] Sodium Chloride 0.9% 1, 150 360 200 000 ml @ 50 mls/hr IV . Q20H [facility] Rx#:[id number] Sodium Chloride 0.9% 50 13.59 4.5 13.5 ml @ 0.03 UNITS/MIN 4.59 mls/hr IVPB .Q11H7M ONE with Vasopressin 20 unit Rx#:[id number] Intake, IV Titration 58.932 330.453 285.204 Amount Insulin Regular 100 unit 0.337 25.074 In Sodium Chloride 0.9% 100 ml @ Per Protocol IV .Q0M [facility] Rx#:[id number] Milrinone-D5w Pmx 20 mg 91.046 In Dextrose/Water 1 100ml .bag @ Per Protocol IV . Q0M [facility] Rx#:[id number] Norepinephrine 4 mg In 58.595 195.405 285.204 Sodium Chloride 0.9% 250 ml @ 0.02 MCG/KG/MIN 6. 934 mls/hr IV .Q24H [facility] Rx#:[id number] propofoL 1,000 mg In 18.928 Empty Bag 1 bag @ Titrate IV .Q0M [facility] Rx#: [id number] Blood Product 0 Rc Pheresis 2 As3 Unit 0 [id number] Output: Chest Tube Drainage 600 650 170 Chest Tube Left Lateral 170 190 80 Chest Chest Tube Mediastinal 270 360 90 Chest Tube Right Lateral 160 100 0 Chest Urine 920 702 115 Estimated Blood Loss 1200 Other: Voiding Method Indwelling Catheter Indwelling Catheter ABP, PAP, CO, CI - Last Documented Arterial Blood Pressure 123/39 Pulmonary Artery Pressure 42/13 Cardiac Output 4.6 Cardiac Index 2.2 - Exam GENERAL: The patient is alert and oriented x3, not in any acute distress. Well developed, well nourished. HEENT: Pupils are round and equally reacting to light. EOMI. No scleral icterus. No conjunctival pallor. Normocephalic, atraumatic. No pharyngeal erythema. No thyromegaly. CARDIOVASCULAR: S1 and S2 present. No murmurs, rubs, or gallops. -PULMONARY: Chest is clear to auscultation, no wheezing . Bilateral basal crepitation ABDOMEN: Soft, nontender, nondistended, normoactive bowel sounds. No palpable organomegaly. MUSCULOSKELETAL: No joint swelling or deformity. -EXTREMITIES: No cyanosis, clubbing, . Bilateral pitting leg edema. NEUROLOGICAL: Gross neurological examination did not reveal any focal deficits. SKIN: No rashes. No petechiae - Labs CBC & Chem 7: 07/23/21 03:21 07/23/21 14:05 Labs: Abnormal Lab Results - Last 24 Hours (Table) 07/21/21 07/22/21 07/22/21 Range/Units 08:22 08:26 10:27 RBC (4.30-5.90) m/uL Hgb (13.0-17.5) gm/dL Hct (39.0-53.0) % Plt Count (150-450) k/uL Lymphocytes # (1.0-4.8) k/uL Lymphocytes # (Manual) (1.0-4.8) k/uL PT (9.0-12.0) sec INR (<1.2) APTT (22.0-30.0) sec ABG pH (7.35-7.45) ABG pCO2 (35-45) mmHg ABG pO2 240 H (83-108) mmHg ABG HCO3 26 H (21-25) mmol/L ABG Total CO2 27 H 26 H (19-24) mmol/L ABG O2 Saturation 98.1 H 99.6 H (94-97) % ABG Hematocrit 31 L (34.0-46.0) % ABG Sodium (135-146) mmol/L ABG Potassium (3.4-4.5) mmol/L ABG Ionized Calcium (4.5-5.3) mg/dL ABG Glucose 160 H 170 H (75-99) mg/dL ABG Lactic Acid (0.5-1.6) mmol/L VBG pCO2 (37-51) mmHg VBG HCO3 (24-28) mmol/L Hemoglobin 11.7 L 10.2 L (13.0-17.5) gm/dL Sodium (137-145) mmol/L Potassium (3.5-5.1) mmol/L Chloride (98-107) mmol/L Carbon Dioxide (22-30) mmol/L BUN (9-20) mg/dL Creatinine (0.66-1.25) mg/dL Glucose (74-99) mg/dL POC Glucose (mg/dL) (75-99) mg/dL Calcium (8.4-10.2) mg/dL Magnesium (1.6-2.3) mg/dL AST (17-59) U/L ALT (4-49) U/L Alkaline Phosphatase (38-126) U/L Total Protein (6.3-8.2) g/dL Albumin (3.5-5.0) g/dL Arterial Blood Potassium (3.4-4.5) mmol/L Arterial Blood Glucose 160 H 170 H (75-99) mg/dL Crossmatch See Detail 07/22/21 07/22/21 07/22/21 Range/Units 11:20 12:08 12:37 RBC (4.30-5.90) m/uL Hgb (13.0-17.5) gm/dL Hct (39.0-53.0) % Plt Count (150-450) k/uL Lymphocytes # (1.0-4.8) k/uL Lymphocytes # (Manual) (1.0-4.8) k/uL PT (9.0-12.0) sec INR (<1.2) APTT (22.0-30.0) sec ABG pH (7.35-7.45) ABG pCO2 (35-45) mmHg ABG pO2 394 H 235 H 223 H (83-108) mmHg ABG HCO3 26 H (21-25) mmol/L ABG Total CO2 25 H 26 H 27 H (19-24) mmol/L ABG O2 Saturation 100.0 H 99.7 H 99.9 H (94-97) % ABG Hematocrit 24 L 24 L 23 L (34.0-46.0) % ABG Sodium 134 L (135-146) mmol/L ABG Potassium (3.4-4.5) mmol/L ABG Ionized Calcium 4.2 L 4.3 L 4.3 L (4.5-5.3) mg/dL ABG Glucose 160 H 147 H 146 H (75-99) mg/dL ABG Lactic Acid (0.5-1.6) mmol/L VBG pCO2 (37-51) mmHg VBG HCO3 (24-28) mmol/L Hemoglobin 7.9 L 7.8 L 7.6 L (13.0-17.5) gm/dL Sodium (137-145) mmol/L Potassium (3.5-5.1) mmol/L Chloride (98-107) mmol/L Carbon Dioxide (22-30) mmol/L BUN (9-20) mg/dL Creatinine (0.66-1.25) mg/dL Glucose (74-99) mg/dL POC Glucose (mg/dL) (75-99) mg/dL Calcium (8.4-10.2) mg/dL Magnesium (1.6-2.3) mg/dL AST (17-59) U/L ALT (4-49) U/L Alkaline Phosphatase (38-126) U/L Total Protein (6.3-8.2) g/dL Albumin (3.5-5.0) g/dL Arterial Blood Potassium (3.4-4.5) mmol/L Arterial Blood Glucose 160 H 147 H 146 H (75-99) mg/dL Crossmatch 07/22/21 07/22/21 07/22/21 Range/Units 13:20 13:52 15:04 RBC (4.30-5.90) m/uL Hgb (13.0-17.5) gm/dL Hct (39.0-53.0) % Plt Count (150-450) k/uL Lymphocytes # (1.0-4.8) k/uL Lymphocytes # (Manual) (1.0-4.8) k/uL PT (9.0-12.0) sec INR (<1.2) APTT (22.0-30.0) sec ABG pH (7.35-7.45) ABG pCO2 (35-45) mmHg ABG pO2 326 H 378 H 64 L (83-108) mmHg ABG HCO3 26 H 26 H (21-25) mmol/L ABG Total CO2 27 H 27 H (19-24) mmol/L ABG O2 Saturation 99.9 H 100.0 H 91.5 L (94-97) % ABG Hematocrit 23 L 23 L 21 L (34.0-46.0) % ABG Sodium (135-146) mmol/L ABG Potassium 4.6 H (3.4-4.5) mmol/L ABG Ionized Calcium 4.2 L 4.2 L (4.5-5.3) mg/dL ABG Glucose 136 H 142 H 161 H (75-99) mg/dL ABG Lactic Acid 1.7 H 2.3 H* 3.6 H* (0.5-1.6) mmol/L VBG pCO2 (37-51) mmHg VBG HCO3 (24-28) mmol/L Hemoglobin 7.5 L 7.3 L 7.0 L* (13.0-17.5) gm/dL Sodium (137-145) mmol/L Potassium (3.5-5.1) mmol/L Chloride (98-107) mmol/L Carbon Dioxide (22-30) mmol/L BUN (9-20) mg/dL Creatinine (0.66-1.25) mg/dL Glucose (74-99) mg/dL POC Glucose (mg/dL) (75-99) mg/dL Calcium (8.4-10.2) mg/dL Magnesium (1.6-2.3) mg/dL AST (17-59) U/L ALT (4-49) U/L Alkaline Phosphatase (38-126) U/L Total Protein (6.3-8.2) g/dL Albumin (3.5-5.0) g/dL Arterial Blood Potassium 4.6 H (3.4-4.5) mmol/L Arterial Blood Glucose 136 H 142 H 161 H (75-99) mg/dL Crossmatch 07/22/21 07/22/21 07/22/21 Range/Units 15:40 16:35 16:35 RBC 2.35 L (4.30-5.90) m/uL Hgb 7.6 L D (13.0-17.5) gm/dL Hct 23.3 L (39.0-53.0) % Plt Count 83 L D (150-450) k/uL Lymphocytes # 0.7 L (1.0-4.8) k/uL Lymphocytes # (Manual) (1.0-4.8) k/uL PT 14.2 H (9.0-12.0) sec INR 1.4 H (<1.2) APTT 38.6 H (22.0-30.0) sec ABG pH (7.35-7.45) ABG pCO2 (35-45) mmHg ABG pO2 59 L* (83-108) mmHg ABG HCO3 26 H (21-25) mmol/L ABG Total CO2 27 H (19-24) mmol/L ABG O2 Saturation 92.5 L (94-97) % ABG Hematocrit 23 L (34.0-46.0) % ABG Sodium (135-146) mmol/L ABG Potassium (3.4-4.5) mmol/L ABG Ionized Calcium (4.5-5.3) mg/dL ABG Glucose 119 H (75-99) mg/dL ABG Lactic Acid 3.3 H* (0.5-1.6) mmol/L VBG pCO2 (37-51) mmHg VBG HCO3 (24-28) mmol/L Hemoglobin 7.6 L (13.0-17.5) gm/dL Sodium (137-145) mmol/L Potassium (3.5-5.1) mmol/L Chloride (98-107) mmol/L Carbon Dioxide (22-30) mmol/L BUN (9-20) mg/dL Creatinine (0.66-1.25) mg/dL Glucose (74-99) mg/dL POC Glucose (mg/dL) (75-99) mg/dL Calcium (8.4-10.2) mg/dL Magnesium (1.6-2.3) mg/dL AST (17-59) U/L ALT (4-49) U/L Alkaline Phosphatase (38-126) U/L Total Protein (6.3-8.2) g/dL Albumin (3.5-5.0) g/dL Arterial Blood Potassium (3.4-4.5) mmol/L Arterial Blood Glucose 119 H (75-99) mg/dL Crossmatch 07/22/21 07/22/21 07/22/21 Range/Units 16:35 16:35 16:47 RBC (4.30-5.90) m/uL Hgb (13.0-17.5) gm/dL Hct (39.0-53.0) % Plt Count (150-450) k/uL Lymphocytes # (1.0-4.8) k/uL Lymphocytes # (Manual) (1.0-4.8) k/uL PT (9.0-12.0) sec INR (<1.2) APTT (22.0-30.0) sec ABG pH (7.35-7.45) ABG pCO2 (35-45) mmHg ABG pO2 76 L (83-108) mmHg ABG HCO3 (21-25) mmol/L ABG Total CO2 27 H (19-24) mmol/L ABG O2 Saturation (94-97) % ABG Hematocrit (34.0-46.0) % ABG Sodium (135-146) mmol/L ABG Potassium (3.4-4.5) mmol/L ABG Ionized Calcium (4.5-5.3) mg/dL ABG Glucose (75-99) mg/dL ABG Lactic Acid (0.5-1.6) mmol/L VBG pCO2 (37-51) mmHg VBG HCO3 (24-28) mmol/L Hemoglobin (13.0-17.5) gm/dL Sodium 136 L (137-145) mmol/L Potassium (3.5-5.1) mmol/L Chloride (98-107) mmol/L Carbon Dioxide (22-30) mmol/L BUN 21 H (9-20) mg/dL Creatinine (0.66-1.25) mg/dL Glucose (74-99) mg/dL POC Glucose (mg/dL) 100 H (75-99) mg/dL Calcium (8.4-10.2) mg/dL Magnesium 2.4 H (1.6-2.3) mg/dL AST (17-59) U/L ALT (4-49) U/L Alkaline Phosphatase <20 L (38-126) U/L Total Protein 4.3 L (6.3-8.2) g/dL Albumin 2.7 L (3.5-5.0) g/dL Arterial Blood Potassium (3.4-4.5) mmol/L Arterial Blood Glucose (75-99) mg/dL Crossmatch 07/22/21 07/22/21 07/22/21 Range/Units 17:57 18:52 19:44 RBC (4.30-5.90) m/uL Hgb (13.0-17.5) gm/dL Hct (39.0-53.0) % Plt Count (150-450) k/uL Lymphocytes # (1.0-4.8) k/uL Lymphocytes # (Manual) (1.0-4.8) k/uL PT (9.0-12.0) sec INR (<1.2) APTT (22.0-30.0) sec ABG pH (7.35-7.45) ABG pCO2 (35-45) mmHg ABG pO2 (83-108) mmHg ABG HCO3 (21-25) mmol/L ABG Total CO2 (19-24) mmol/L ABG O2 Saturation (94-97) % ABG Hematocrit (34.0-46.0) % ABG Sodium (135-146) mmol/L ABG Potassium (3.4-4.5) mmol/L ABG Ionized Calcium (4.5-5.3) mg/dL ABG Glucose (75-99) mg/dL ABG Lactic Acid (0.5-1.6) mmol/L VBG pCO2 (37-51) mmHg VBG HCO3 (24-28) mmol/L Hemoglobin (13.0-17.5) gm/dL Sodium (137-145) mmol/L Potassium (3.5-5.1) mmol/L Chloride (98-107) mmol/L Carbon Dioxide (22-30) mmol/L BUN (9-20) mg/dL Creatinine (0.66-1.25) mg/dL Glucose (74-99) mg/dL POC Glucose (mg/dL) 108 H 134 H 134 H (75-99) mg/dL Calcium (8.4-10.2) mg/dL Magnesium (1.6-2.3) mg/dL AST (17-59) U/L ALT (4-49) U/L Alkaline Phosphatase (38-126) U/L Total Protein (6.3-8.2) g/dL Albumin (3.5-5.0) g/dL Arterial Blood Potassium (3.4-4.5) mmol/L Arterial Blood Glucose (75-99) mg/dL Crossmatch 07/22/21 07/22/21 07/22/21 Range/Units 19:54 21:11 22:02 RBC 2.26 L (4.30-5.90) m/uL Hgb 7.5 L (13.0-17.5) gm/dL Hct 22.5 L (39.0-53.0) % Plt Count 104 L (150-450) k/uL Lymphocytes # (1.0-4.8) k/uL Lymphocytes # (Manual) 0.38 L (1.0-4.8) k/uL PT (9.0-12.0) sec INR (<1.2) APTT (22.0-30.0) sec ABG pH 7.46 H (7.35-7.45) ABG pCO2 33 L (35-45) mmHg ABG pO2 (83-108) mmHg ABG HCO3 (21-25) mmol/L ABG Total CO2 (19-24) mmol/L ABG O2 Saturation 98.7 H (94-97) % ABG Hematocrit (34.0-46.0) % ABG Sodium (135-146) mmol/L ABG Potassium (3.4-4.5) mmol/L ABG Ionized Calcium (4.5-5.3) mg/dL ABG Glucose (75-99) mg/dL ABG Lactic Acid (0.5-1.6) mmol/L VBG pCO2 (37-51) mmHg VBG HCO3 (24-28) mmol/L Hemoglobin (13.0-17.5) gm/dL Sodium (137-145) mmol/L Potassium (3.5-5.1) mmol/L Chloride (98-107) mmol/L Carbon Dioxide (22-30) mmol/L BUN (9-20) mg/dL Creatinine (0.66-1.25) mg/dL Glucose (74-99) mg/dL POC Glucose (mg/dL) 140 H (75-99) mg/dL Calcium (8.4-10.2) mg/dL Magnesium (1.6-2.3) mg/dL AST (17-59) U/L ALT (4-49) U/L Alkaline Phosphatase (38-126) U/L Total Protein (6.3-8.2) g/dL Albumin (3.5-5.0) g/dL Arterial Blood Potassium (3.4-4.5) mmol/L Arterial Blood Glucose (75-99) mg/dL Crossmatch 07/22/21 07/22/21 07/22/21 Range/Units 22:34 22:45 23:58 RBC 2.29 L (4.30-5.90) m/uL Hgb 7.4 L (13.0-17.5) gm/dL Hct 22.3 L (39.0-53.0) % Plt Count 102 L (150-450) k/uL Lymphocytes # 0.6 L (1.0-4.8) k/uL Lymphocytes # (Manual) (1.0-4.8) k/uL PT (9.0-12.0) sec INR (<1.2) APTT (22.0-30.0) sec ABG pH (7.35-7.45) ABG pCO2 (35-45) mmHg ABG pO2 (83-108) mmHg ABG HCO3 (21-25) mmol/L ABG Total CO2 (19-24) mmol/L ABG O2 Saturation (94-97) % ABG Hematocrit (34.0-46.0) % ABG Sodium (135-146) mmol/L ABG Potassium (3.4-4.5) mmol/L ABG Ionized Calcium (4.5-5.3) mg/dL ABG Glucose (75-99) mg/dL ABG Lactic Acid (0.5-1.6) mmol/L VBG pCO2 (37-51) mmHg VBG HCO3 (24-28) mmol/L Hemoglobin (13.0-17.5) gm/dL Sodium (137-145) mmol/L Potassium (3.5-5.1) mmol/L Chloride (98-107) mmol/L Carbon Dioxide (22-30) mmol/L BUN (9-20) mg/dL Creatinine (0.66-1.25) mg/dL Glucose (74-99) mg/dL POC Glucose (mg/dL) 149 H 147 H (75-99) mg/dL Calcium (8.4-10.2) mg/dL Magnesium (1.6-2.3) mg/dL AST (17-59) U/L ALT (4-49) U/L Alkaline Phosphatase (38-126) U/L Total Protein (6.3-8.2) g/dL Albumin (3.5-5.0) g/dL Arterial Blood Potassium (3.4-4.5) mmol/L Arterial Blood Glucose (75-99) mg/dL Crossmatch 07/23/21 07/23/21 07/23/21 Range/Units 01:49 02:45 03:20 RBC (4.30-5.90) m/uL Hgb (13.0-17.5) gm/dL Hct (39.0-53.0) % Plt Count (150-450) k/uL Lymphocytes # (1.0-4.8) k/uL Lymphocytes # (Manual) (1.0-4.8) k/uL PT (9.0-12.0) sec INR (<1.2) APTT (22.0-30.0) sec ABG pH (7.35-7.45) ABG pCO2 30 L (35-45) mmHg ABG pO2 82 L (83-108) mmHg ABG HCO3 (21-25) mmol/L ABG Total CO2 (19-24) mmol/L ABG O2 Saturation 97.2 H (94-97) % ABG Hematocrit (34.0-46.0) % ABG Sodium (135-146) mmol/L ABG Potassium (3.4-4.5) mmol/L ABG Ionized Calcium (4.5-5.3) mg/dL ABG Glucose (75-99) mg/dL ABG Lactic Acid (0.5-1.6) mmol/L VBG pCO2 (37-51) mmHg VBG HCO3 (24-28) mmol/L Hemoglobin (13.0-17.5) gm/dL Sodium (137-145) mmol/L Potassium (3.5-5.1) mmol/L Chloride (98-107) mmol/L Carbon Dioxide (22-30) mmol/L BUN (9-20) mg/dL Creatinine (0.66-1.25) mg/dL Glucose (74-99) mg/dL POC Glucose (mg/dL) 157 H 170 H (75-99) mg/dL Calcium (8.4-10.2) mg/dL Magnesium (1.6-2.3) mg/dL AST (17-59) U/L ALT (4-49) U/L Alkaline Phosphatase (38-126) U/L Total Protein (6.3-8.2) g/dL Albumin (3.5-5.0) g/dL Arterial Blood Potassium (3.4-4.5) mmol/L Arterial Blood Glucose (75-99) mg/dL Crossmatch 07/23/21 07/23/21 07/23/21 Range/Units 03:21 03:21 04:21 RBC 2.31 L (4.30-5.90) m/uL Hgb 7.3 L (13.0-17.5) gm/dL Hct 23.0 L (39.0-53.0) % Plt Count 108 L (150-450) k/uL Lymphocytes # 0.5 L (1.0-4.8) k/uL Lymphocytes # (Manual) (1.0-4.8) k/uL PT (9.0-12.0) sec INR (<1.2) APTT (22.0-30.0) sec ABG pH (7.35-7.45) ABG pCO2 (35-45) mmHg ABG pO2 (83-108) mmHg ABG HCO3 (21-25) mmol/L ABG Total CO2 (19-24) mmol/L ABG O2 Saturation (94-97) % ABG Hematocrit (34.0-46.0) % ABG Sodium (135-146) mmol/L ABG Potassium (3.4-4.5) mmol/L ABG Ionized Calcium (4.5-5.3) mg/dL ABG Glucose (75-99) mg/dL ABG Lactic Acid (0.5-1.6) mmol/L VBG pCO2 (37-51) mmHg VBG HCO3 (24-28) mmol/L Hemoglobin (13.0-17.5) gm/dL Sodium 134 L (137-145) mmol/L Potassium 6.3 H* (3.5-5.1) mmol/L Chloride (98-107) mmol/L Carbon Dioxide 20 L (22-30) mmol/L BUN 21 H (9-20) mg/dL Creatinine 1.55 H (0.66-1.25) mg/dL Glucose 150 H (74-99) mg/dL POC Glucose (mg/dL) 167 H (75-99) mg/dL Calcium 8.1 L (8.4-10.2) mg/dL Magnesium (1.6-2.3) mg/dL AST 568 H (17-59) U/L ALT 343 H (4-49) U/L Alkaline Phosphatase 20 L (38-126) U/L Total Protein 4.5 L (6.3-8.2) g/dL Albumin 3.0 L (3.5-5.0) g/dL Arterial Blood Potassium (3.4-4.5) mmol/L Arterial Blood Glucose (75-99) mg/dL Crossmatch 07/23/21 07/23/21 07/23/21 Range/Units 04:25 05:40 06:51 RBC (4.30-5.90) m/uL Hgb (13.0-17.5) gm/dL Hct (39.0-53.0) % Plt Count (150-450) k/uL Lymphocytes # (1.0-4.8) k/uL Lymphocytes # (Manual) (1.0-4.8) k/uL PT (9.0-12.0) sec INR (<1.2) APTT (22.0-30.0) sec ABG pH (7.35-7.45) ABG pCO2 (35-45) mmHg ABG pO2 (83-108) mmHg ABG HCO3 (21-25) mmol/L ABG Total CO2 (19-24) mmol/L ABG O2 Saturation (94-97) % ABG Hematocrit (34.0-46.0) % ABG Sodium (135-146) mmol/L ABG Potassium (3.4-4.5) mmol/L ABG Ionized Calcium (4.5-5.3) mg/dL ABG Glucose (75-99) mg/dL ABG Lactic Acid (0.5-1.6) mmol/L VBG pCO2 (37-51) mmHg VBG HCO3 (24-28) mmol/L Hemoglobin (13.0-17.5) gm/dL Sodium (137-145) mmol/L Potassium 6.0 H (3.5-5.1) mmol/L Chloride (98-107) mmol/L Carbon Dioxide (22-30) mmol/L BUN (9-20) mg/dL Creatinine (0.66-1.25) mg/dL Glucose (74-99) mg/dL POC Glucose (mg/dL) 126 H 127 H (75-99) mg/dL Calcium (8.4-10.2) mg/dL Magnesium (1.6-2.3) mg/dL AST (17-59) U/L ALT (4-49) U/L Alkaline Phosphatase (38-126) U/L Total Protein (6.3-8.2) g/dL Albumin (3.5-5.0) g/dL Arterial Blood Potassium (3.4-4.5) mmol/L Arterial Blood Glucose (75-99) mg/dL Crossmatch 07/23/21 07/23/21 07/23/21 Range/Units 08:47 08:48 09:04 RBC (4.30-5.90) m/uL Hgb (13.0-17.5) gm/dL Hct (39.0-53.0) % Plt Count (150-450) k/uL Lymphocytes # (1.0-4.8) k/uL Lymphocytes # (Manual) (1.0-4.8) k/uL PT (9.0-12.0) sec INR (<1.2) APTT (22.0-30.0) sec ABG pH (7.35-7.45) ABG pCO2 30 L (35-45) mmHg ABG pO2 (83-108) mmHg ABG HCO3 20 L (21-25) mmol/L ABG Total CO2 (19-24) mmol/L ABG O2 Saturation 97.6 H (94-97) % ABG Hematocrit (34.0-46.0) % ABG Sodium (135-146) mmol/L ABG Potassium (3.4-4.5) mmol/L ABG Ionized Calcium (4.5-5.3) mg/dL ABG Glucose (75-99) mg/dL ABG Lactic Acid (0.5-1.6) mmol/L VBG pCO2 (37-51) mmHg VBG HCO3 (24-28) mmol/L Hemoglobin (13.0-17.5) gm/dL Sodium 136 L (137-145) mmol/L Potassium (3.5-5.1) mmol/L Chloride 110 H (98-107) mmol/L Carbon Dioxide 20 L (22-30) mmol/L BUN 22 H (9-20) mg/dL Creatinine 1.62 H (0.66-1.25) mg/dL Glucose 127 H (74-99) mg/dL POC Glucose (mg/dL) 127 H (75-99) mg/dL Calcium 8.3 L (8.4-10.2) mg/dL Magnesium (1.6-2.3) mg/dL AST (17-59) U/L ALT (4-49) U/L Alkaline Phosphatase (38-126) U/L Total Protein (6.3-8.2) g/dL Albumin (3.5-5.0) g/dL Arterial Blood Potassium (3.4-4.5) mmol/L Arterial Blood Glucose (75-99) mg/dL Crossmatch 07/23/21 07/23/21 Range/Units 09:05 10:31 RBC (4.30-5.90) m/uL Hgb (13.0-17.5) gm/dL Hct (39.0-53.0) % Plt Count (150-450) k/uL Lymphocytes # (1.0-4.8) k/uL Lymphocytes # (Manual) (1.0-4.8) k/uL PT (9.0-12.0) sec INR (<1.2) APTT (22.0-30.0) sec ABG pH (7.35-7.45) ABG pCO2 (35-45) mmHg ABG pO2 (83-108) mmHg ABG HCO3 (21-25) mmol/L ABG Total CO2 (19-24) mmol/L ABG O2 Saturation (94-97) % ABG Hematocrit (34.0-46.0) % ABG Sodium (135-146) mmol/L ABG Potassium (3.4-4.5) mmol/L ABG Ionized Calcium (4.5-5.3) mg/dL ABG Glucose (75-99) mg/dL ABG Lactic Acid (0.5-1.6) mmol/L VBG pCO2 36 L (37-51) mmHg VBG HCO3 22 L (24-28) mmol/L Hemoglobin (13.0-17.5) gm/dL Sodium (137-145) mmol/L Potassium (3.5-5.1) mmol/L Chloride (98-107) mmol/L Carbon Dioxide (22-30) mmol/L BUN (9-20) mg/dL Creatinine (0.66-1.25) mg/dL Glucose (74-99) mg/dL POC Glucose (mg/dL) 131 H (75-99) mg/dL Calcium (8.4-10.2) mg/dL Magnesium (1.6-2.3) mg/dL AST (17-59) U/L ALT (4-49) U/L Alkaline Phosphatase (38-126) U/L Total Protein (6.3-8.2) g/dL Albumin (3.5-5.0) g/dL Arterial Blood Potassium (3.4-4.5) mmol/L Arterial Blood Glucose (75-99) mg/dL Crossmatch Assessment and Plan Assessment: severe triple coronary artery diseas, status post multiple vessel CABG Severe aortic stenosis status post aortic valve replacement Acute systolic heart failure, , ischemic cardiomyopathy is suspected with ejection fraction of 30-35% None STEMI Acute kidney injury, suspected secondary to diuresis. On the top of his chronic kidney disease stage III Hypotension requiring pressors postoperatively Postoperative anemia requiring 1 unit of blood transfusion Sore throat, improved, coronavirus is negative Hyponatremia Diabetes mellitus, With hyperglycemia upon admission . Hemoglobin A1c is 8.6% Hypertension Hyperlipidemia Plan: this is a pleasant 75 years old male who presents with possible acute CHF and high troponin. Cardiothoracic surgery been consulted for CABG on 07/22 and aortic fall for placement on the same day Continue with pressors and monitor blood pressure Continue with aspirin and Plavix Keep monitoring glucose while keeping the patient on insulin Hold antihypertensive and metformin. Pulmonary/critical care consult Cardiology and nephrology team on the case Cardiology cardiology team recommend patient will need AICD open discharge Monitor hemoglobin Labs and medication were reviewed.. Continue same treatment. Continue with symptomatic treatment. Resume home medication. Monitor lytes and vitals. DVT and GI prophylaxis. Further recommendations depends on the clinical course of the patient DVT prophylaxis: Subcutaneous heparin GI Prophylaxis: Pepcid Prognosis is guarded
[2021-07-24 00:07] LABS: Glucose,Whole Blood 48 mg/dL (75-99)
[2021-07-24 00:08] LABS: Glucose,Whole Blood 156 mg/dL (75-99)
[2021-07-24] MEDS: HEPARIN SODIUM,PORCINE/PF 5,000 UNIT/0.5 ML SYRINGE SQ SCH ×3 (00:18→15:43)
[2021-07-24 01:57] LABS: Glucose,Whole Blood 149 mg/dL (75-99)
[2021-07-24 03:45] LABS: Glucose,Whole Blood 129 mg/dL (75-99)
[2021-07-24] MEDS: ACETAMINOPHEN TAB 325 MG TAB PO PRN (04:12)
[2021-07-24 05:19] LABS: Glucose,Whole Blood 108 mg/dL (75-99)
[2021-07-24 05:37] LABS: Basophils % (A) 0 %; Eosinophils % (A) 0 %; HCT 27.8 % (39.0-53.0); Lymphocytes # (A) 0.7 k/uL (1.0-4.8); Lymphocytes % (A) 9 %; MCH 32.1 pg (25.0-35.0); MCHC 32.7 g/dL (31.0-37.0); MCV 98.3 fL (80.0-100.0); Mean Platelet Volume 9.7; Monocytes # (A) 0.6 k/uL (0-1.0); Monocytes % (A) 9 %; Neutrophils # (A) 5.8 k/uL (1.3-7.7); Neutrophils % (A) 80 %; RBC 2.83 m/uL (4.30-5.90); RDW 14.7 % (11.5-15.5); WBC 7.3 k/uL (3.8-10.6)
[2021-07-24 05:41] LABS: HGB 9.1 gm/dL (13.0-17.5)
[2021-07-24 05:46] LABS: Ionized Calcium 4.9 mg/dL (4.5-5.3)
[2021-07-24 05:55] LABS: Albumin 3.3 g/dL (3.5-5.0); Calcium 8.4 mg/dL (8.4-10.2); Potassium 4.6 mmol/L (3.5-5.1); Total Bilirubin 1.3 mg/dL (0.2-1.3); Total Protein 5.3 g/dL (6.3-8.2)
[2021-07-24 06:07] LABS: Platelet Count 85 k/uL (150-450)
--- NOTE | 2021-07-24 06:38 | XR ---
EXAMINATION TYPE: XR chest 1V portable DATE OF EXAM: 07/24/2021 COMPARISON: 07/23/2021 HISTORY: Post CABG TECHNIQUE: Single frontal view of the chest is obtained. FINDINGS: There are postsurgical changes of CABG surgery with median sternotomy wires. There is been no change in position of the Woodruff-Adalberto catheter, bilateral chest tube and mediastinal tube. There is no pneumothorax or large pleural effusion. There has been interval decrease in the pulmonary vascular congestion compared to previous IMPRESSION: Postsurgical changes and lines and chest tubes unchanged in position. There has been an interval decrease in the degree of pulmonary vascular congestion
[2021-07-24] MEDS: SODIUM CHLORIDE 0.9% 50 ML with VASOPRESSIN 20 UNIT IVPB SCH ×10 (06:46→22:43)
[2021-07-24 06:47] LABS: Glucose,Whole Blood 136 mg/dL (75-99)
[2021-07-24] MEDS: SODIUM CHLORIDE 0.9% 1,000 ML IV SCH ×2 (06:47→19:47)
[2021-07-24] MEDS ORDERED: fentaNYL (PF) 50 MCG/ML 2 ML AMP IVP ONE (06:56)
[2021-07-24] MEDS: IPRATROPIUM-ALBUTEROL 3 ML NEB INHALATION SCH ×4 (07:23→20:56)
[2021-07-24] MEDS ORDERED: HYDROcodone/APAP 5-325MG 1 EACH TAB PO PRN (08:32)
[2021-07-24] MEDS: HYDROcodone/APAP 5-325MG 1 EACH TAB PO PRN ×3 (08:37→20:12)
[2021-07-24 08:40] LABS: Glucose,Whole Blood 134 mg/dL (75-99)
[2021-07-24] MEDS ORDERED: FUROSEMIDE 10 MG/ML 4 ML VIAL IV STA (09:20)
[2021-07-24] MEDS ORDERED: DEXTROSE 5% IN WATER 100 ML with AMIODARONE 150 MG IV ONE ×5 (09:20→20:45)
--- NOTE | 2021-07-24 09:31 | P.PN ---
Subjective Progress Note Date: 07/24/21 Principal diagnosis: Triple-vessel coronary artery disease, non-STEMI and admission, moderate aortic valve stenosis, mild to moderate mitral valve regurgitation, acute systolic hea rt failure present on admission, EF 30-35%, paroxysmal atrial fibrillation preoperatively, first-degree heart block, paroxysmal episodes of second-degree and complete heart block this admission, acute kidney injury, elevated CRP, pro- calcitonin on admission. Previous medical history of hypertension, hyperlipidemia, ddc-uooeeuo-mwyfupwbi diabetes, lifetime nonsmoker, family history of heart disease, remains unvaccinated against covid. POD #2 triple-vessel coronary artery bypass grafting using the left internal mammary artery to the left anterior descending coronary artery, a reverse greater saphenous vein graft from the aorta to the second obtuse marginal coronary artery, and a reverse greater saphenous vein graft from the aorta to the third obtuse marginal coronary artery. Aortic valve replacement using a 23 mm pericardial bioprosthetic Inspiris. Bilateral pulmonary vein isolation using bipolar radiofrequency energy from Atricure, exclusion of the left atrial appendage using a 40 mm Atriclip, intraoperative transesophageal echocardiogram, epi-aortic scanning and graft flow measurements using the Medi-Stim system. Endoscopic harvesting of his left greater saphenous vein from the ankle to the groin, and his right greater saphenous vein from just below the knee to his groin. Postoperative acute blood loss anemia, expected given hemodilution and cardiopulmonary bypass. Hypotension, multifactorial, could be secondary to his ejection fraction of 30- 35%. The patient was seen in follow-up today 07/24/2021 at his bedside in the intensive care unit. Currently he is sitting up to the bedside chair, is awake, alert and oriented 3. His mentation is much improved today. Denies any complaints of shortness of breath at this time although is complaining of pain to his chest tube insertion sites rating his pain 8 or 9 out of 10 on the pain scale. Oxygen saturations are 96% on 2 L nasal cannula and he is achieving 750 mL with much encouragement on his incentive spirometry. Bedside telemetry showing atrial paced rhythm heart rate 80 bpm, underlying rhythm is normal sinus rhythm with a first-degree heart block heart rate in the 60s. Right IJ Cordis and Hancock-Adalberto catheter remains in place with current hemodynamics showing a cardiac output of 4.2, cardiac index 2.0, PA pressures 42/17 and CVP pressure of 14 mmHg. Yesterday 07/23/2021 he transfused for 2 units of packed red blood cells for hemoglobin of 7.3 and today's labs show a WBC count of 7.3, hemoglobin 9.1, hematocrit 27.8, platelets 85, sodium 140, potassium 4.6, BUN 16, creatinine 1.68, AST 1113 and ALT 497. Norepinephrine drip has been titrated down since yesterday and he is currently on 0.04 mcg/kg/m and his vasopressin remains at 0.03 units per minute. Primacor drip remains infusing at 0.03 mcg/ kg/m. Mediastinal, left and right pleural chest tubes remain in place to low continuous wall suction -20 cm H2O. No air leak is present. Draining thin serosanguineous drainage with his left pleural chest tube draining 50 mL output in the last 8 hours and 300 mL output in the last 24 hours, mediastinal chest tubes drained 60 mL output in the last 8 hours, 270 mL output in the last 24 hours and his right pleural chest tube draining 30 mL output in the last 8 hours and 330 mL output in the last 24 hours. He remains afebrile the last 24 hours. Atrial and ventricular epicardial pacemaker wires remain in place and connected to the bedside pacemaker generator on an AAI of 80 bpm. Objective - Vital Signs Vital signs: Vital Signs Temp 98.1 F 07/24/21 03:45 Pulse 76 07/24/21 07:34 Resp 27 H 07/24/21 06:00 BP 106/63 07/24/21 06:00 Pulse Ox 99 07/24/21 06:00 Intake & Output 07/23/21 07/24/21 07/24/21 18:59 06:59 18:59 Intake Total 2225.679 1014.789 Output Total 1177 1295 Balance 1048.679 -280.211 Weight 91 kg 89.3 kg Intake: IV 888.99 881.09 CARDIAC OUTPUT 0.9 Sodium 80 120 Chloride Milrinone-D5w Pmx 20 mg 51.49 4.59 In Dextrose/Water 1 100ml .bag @ Per Protocol IV . Q0M BISHOP Rx#:[id number] PRESSURE BAG 0.9 Sodium 108 102 Chloride Sodium Chloride 0.9% 1, 600 650 000 ml @ 50 mls/hr IV . Q20H B[facility]OP Rx#:[id number] Sodium Chloride 0.9% 50 49.50 4.5 ml @ 0.03 UNITS/MIN 4.59 mls/hr IVPB .Q11H7M ONE with Vasopressin 20 unit Rx#:[id number] Intake, IV Titration 650.689 133.699 Amount Insulin Regular 100 unit 42.689 77.071 In Sodium Chloride 0.9% 100 ml @ Per Protocol IV .Q0M B[facility]OP Rx#:[id number] Milrinone-D5w Pmx 20 mg 100 In Dextrose/Water 1 100ml .bag @ Per Protocol IV . Q0M [facility]OP Rx#:[id number] Norepinephrine 4 mg In 508.000 56.628 Sodium Chloride 0.9% 250 ml @ 0.02 MCG/KG/MIN 6. 934 mls/hr IV .Q24H B[facility]OP Rx#:[id number] Oral 100 Blood Product 586 Rc As-1 Unit 310 [id number] Rc Pheresis 2 As3 Unit 276 [id number] Output: Chest Tube Drainage 590 180 Chest Tube Left Lateral 200 70 Chest Chest Tube Mediastinal 200 80 Chest Tube Right Lateral 190 30 Chest Drainage 50 40 Left Calf 50 40 Urine 537 1075 Other: Voiding Method Indwelling Catheter Indwelling Catheter ABP, PAP, CO, CI - Last Documented Arterial Blood Pressure 68/63 Pulmonary Artery Pressure 40/17 Cardiac Output 4.6 Cardiac Index 2.2 - Exam CONSTITUTIONAL: Sitting up to the bedside chair in the intensive care unit, cooperative, oriented 3 and is in no apparent acute distress. HEENT: Neck is supple, no JVD, no lymphadenopathy. Right IJ Cordis and Hancock- Adalberto catheter in place and functioning. RESPIRATORY: Lungs sounds essentially clear throughout, diminished to his bilateral base. Respirations are symmetrical and nonlabored. Currently on 2 L nasal cannula with oxygen saturations 96%. Achieving 750 mL on his incentive spirometry up encouragement. Strong cough. CARDIOVASCULAR: Regular rhythm and rate. S1 and S2 present, negative for S3, gallop or murmur. Sternum is stable. Palpable peripheral pulses bilaterally, +1 edema to his bilateral lower extremities. No calf pain or tenderness noted. Heart hugger in place with patient demonstrating appropriate use. Knee-high YOU hose and sequential compression devices in place to his bilateral lower extremities. GASTROINTESTINAL: Abdomen soft, nontender, nondistended. Active bowel sounds present 4 quadrants. Tolerating diet. No guarding or rigidity. GENITOURINARY: Nava present draining clear, yellow urine. Output 555 mL in the last 8 hours. INTEGUMENTARY: Skin is warm and dry with no evidence of clubbing or cyanosis. Midline sternal incision clean dry and well approximated, covered with dry int act dressing. Right and left lower extremity EVH sites well approximated without redness or drainage. NEUROLOGIC: Cranial nerves II through XII intact. No focal deficits. MUSKULOSKELETAL: Able to move all extremities, strength equal bilaterally, generalized weakness. PSYCHIATRIC: Alert and oriented 3. Intact judgment and insight. INVASIVE LINES AND TUBES: Mediastinal/left and right pleural chest tubes present and connected to low continuous wall suction, no air leaks present. Mediastinal tube with 60 mL of thin serosanguineous drainage overnight, 270 mL output since surgery. Left pleural chest tube with 50 mL of thin serosanguineous drainage overnight, 300 mL output since surgery. Right pleural chest tube with 30 mL output in the last 8 hours and 330 mL output since surgery. Atrial and ventricular epicardial pacemaker wires present, connected to backup bedside pacemaker generator, AAI rate 80 bpm. Right internal jugular Hancock/Cordis, right radial arterial line present. Last CO 4.2, CI 2.0, PA 42/17 and CVP 14 mmHg. Left leg KANCHAN drain in place with scant thin serosanguineous drainage, 30 mL output in the last 8 hours. - Allied health notes Allied health notes reviewed: nursing - Labs CBC & Chem 7: 07/24/21 04:39 07/24/21 04:38 Labs: Abnormal Lab Results - Last 24 Hours (Table) 07/21/21 07/23/21 07/23/21 Range/Units 08:22 08:47 08:48 RBC (4.30-5.90) m/uL Hgb (13.0-17.5) gm/dL Hct (39.0-53.0) % Plt Count (150-450) k/uL Lymphocytes # (1.0-4.8) k/uL ABG pCO2 (35-45) mmHg ABG pO2 (83-108) mmHg ABG HCO3 (21-25) mmol/L ABG Total CO2 (19-24) mmol/L ABG O2 Saturation (94-97) % VBG pCO2 (37-51) mmHg VBG HCO3 (24-28) mmol/L Sodium 136 L (137-145) mmol/L Chloride 110 H (98-107) mmol/L Carbon Dioxide 20 L (22-30) mmol/L BUN 22 H (9-20) mg/dL Creatinine 1.62 H (0.66-1.25) mg/dL Glucose 127 H (74-99) mg/dL POC Glucose (mg/dL) 127 H (75-99) mg/dL Calcium 8.3 L (8.4-10.2) mg/dL AST (17-59) U/L ALT (4-49) U/L Alkaline Phosphatase (38-126) U/L Total Protein (6.3-8.2) g/dL Albumin (3.5-5.0) g/dL Crossmatch See Detail 07/23/21 07/23/21 07/23/21 Range/Units 09:04 09:05 10:31 RBC (4.30-5.90) m/uL Hgb (13.0-17.5) gm/dL Hct (39.0-53.0) % Plt Count (150-450) k/uL Lymphocytes # (1.0-4.8) k/uL ABG pCO2 30 L (35-45) mmHg ABG pO2 (83-108) mmHg ABG HCO3 20 L (21-25) mmol/L ABG Total CO2 (19-24) mmol/L ABG O2 Saturation 97.6 H (94-97) % VBG pCO2 36 L (37-51) mmHg VBG HCO3 22 L (24-28) mmol/L Sodium (137-145) mmol/L Chloride (98-107) mmol/L Carbon Dioxide (22-30) mmol/L BUN (9-20) mg/dL Creatinine (0.66-1.25) mg/dL Glucose (74-99) mg/dL POC Glucose (mg/dL) 131 H (75-99) mg/dL Calcium (8.4-10.2) mg/dL AST (17-59) U/L ALT (4-49) U/L Alkaline Phosphatase (38-126) U/L Total Protein (6.3-8.2) g/dL Albumin (3.5-5.0) g/dL Crossmatch 07/23/21 07/23/21 07/23/21 Range/Units 12:37 13:34 14:05 RBC (4.30-5.90) m/uL Hgb (13.0-17.5) gm/dL Hct (39.0-53.0) % Plt Count (150-450) k/uL Lymphocytes # (1.0-4.8) k/uL ABG pCO2 (35-45) mmHg ABG pO2 26 L* (83-108) mmHg ABG HCO3 (21-25) mmol/L ABG Total CO2 25 H (19-24) mmol/L ABG O2 Saturation 45.4 L (94-97) % VBG pCO2 (37-51) mmHg VBG HCO3 (24-28) mmol/L Sodium (137-145) mmol/L Chloride 108 H (98-107) mmol/L Carbon Dioxide 19 L (22-30) mmol/L BUN 23 H (9-20) mg/dL Creatinine 1.64 H (0.66-1.25) mg/dL Glucose 127 H (74-99) mg/dL POC Glucose (mg/dL) 135 H (75-99) mg/dL Calcium (8.4-10.2) mg/dL AST (17-59) U/L ALT (4-49) U/L Alkaline Phosphatase (38-126) U/L Total Protein (6.3-8.2) g/dL Albumin (3.5-5.0) g/dL Crossmatch 07/23/21 07/23/21 07/23/21 Range/Units 14:05 16:15 17:56 RBC (4.30-5.90) m/uL Hgb (13.0-17.5) gm/dL Hct (39.0-53.0) % Plt Count (150-450) k/uL Lymphocytes # (1.0-4.8) k/uL ABG pCO2 (35-45) mmHg ABG pO2 (83-108) mmHg ABG HCO3 (21-25) mmol/L ABG Total CO2 (19-24) mmol/L ABG O2 Saturation (94-97) % VBG pCO2 (37-51) mmHg VBG HCO3 (24-28) mmol/L Sodium (137-145) mmol/L Chloride (98-107) mmol/L Carbon Dioxide (22-30) mmol/L BUN (9-20) mg/dL Creatinine (0.66-1.25) mg/dL Glucose (74-99) mg/dL POC Glucose (mg/dL) 134 H 144 H 137 H (75-99) mg/dL Calcium (8.4-10.2) mg/dL AST (17-59) U/L ALT (4-49) U/L Alkaline Phosphatase (38-126) U/L Total Protein (6.3-8.2) g/dL Albumin (3.5-5.0) g/dL Crossmatch 07/23/21 07/23/21 07/23/21 Range/Units 19:32 20:56 22:13 RBC (4.30-5.90) m/uL Hgb (13.0-17.5) gm/dL Hct (39.0-53.0) % Plt Count (150-450) k/uL Lymphocytes # (1.0-4.8) k/uL ABG pCO2 (35-45) mmHg ABG pO2 (83-108) mmHg ABG HCO3 (21-25) mmol/L ABG Total CO2 (19-24) mmol/L ABG O2 Saturation (94-97) % VBG pCO2 (37-51) mmHg VBG HCO3 (24-28) mmol/L Sodium (137-145) mmol/L Chloride (98-107) mmol/L Carbon Dioxide (22-30) mmol/L BUN (9-20) mg/dL Creatinine (0.66-1.25) mg/dL Glucose (74-99) mg/dL POC Glucose (mg/dL) 180 H 155 H 170 H (75-99) mg/dL Calcium (8.4-10.2) mg/dL AST (17-59) U/L ALT (4-49) U/L Alkaline Phosphatase (38-126) U/L Total Protein (6.3-8.2) g/dL Albumin (3.5-5.0) g/dL Crossmatch 07/24/21 07/24/21 07/24/21 Range/Units 00:04 00:06 01:55 RBC (4.30-5.90) m/uL Hgb (13.0-17.5) gm/dL Hct (39.0-53.0) % Plt Count (150-450) k/uL Lymphocytes # (1.0-4.8) k/uL ABG pCO2 (35-45) mmHg ABG pO2 (83-108) mmHg ABG HCO3 (21-25) mmol/L ABG Total CO2 (19-24) mmol/L ABG O2 Saturation (94-97) % VBG pCO2 (37-51) mmHg VBG HCO3 (24-28) mmol/L Sodium (137-145) mmol/L Chloride (98-107) mmol/L Carbon Dioxide (22-30) mmol/L BUN (9-20) mg/dL Creatinine (0.66-1.25) mg/dL Glucose (74-99) mg/dL POC Glucose (mg/dL) 48 L 156 H 149 H (75-99) mg/dL Calcium (8.4-10.2) mg/dL AST (17-59) U/L ALT (4-49) U/L Alkaline Phosphatase (38-126) U/L Total Protein (6.3-8.2) g/dL Albumin (3.5-5.0) g/dL Crossmatch 07/24/21 07/24/21 07/24/21 Range/Units 03:43 04:38 04:39 RBC 2.83 L (4.30-5.90) m/uL Hgb 9.1 L D (13.0-17.5) gm/dL Hct 27.8 L (39.0-53.0) % Plt Count 85 L (150-450) k/uL Lymphocytes # 0.7 L (1.0-4.8) k/uL ABG pCO2 (35-45) mmHg ABG pO2 (83-108) mmHg ABG HCO3 (21-25) mmol/L ABG Total CO2 (19-24) mmol/L ABG O2 Saturation (94-97) % VBG pCO2 (37-51) mmHg VBG HCO3 (24-28) mmol/L Sodium (137-145) mmol/L Chloride 109 H (98-107) mmol/L Carbon Dioxide (22-30) mmol/L BUN 26 H (9-20) mg/dL Creatinine 1.68 H (0.66-1.25) mg/dL Glucose 113 H (74-99) mg/dL POC Glucose (mg/dL) 129 H (75-99) mg/dL Calcium (8.4-10.2) mg/dL AST 1133 H (17-59) U/L ALT 497 H (4-49) U/L Alkaline Phosphatase 32 L (38-126) U/L Total Protein 5.3 L (6.3-8.2) g/dL Albumin 3.3 L (3.5-5.0) g/dL Crossmatch 07/24/21 07/24/21 Range/Units 05:18 06:46 RBC (4.30-5.90) m/uL Hgb (13.0-17.5) gm/dL Hct (39.0-53.0) % Plt Count (150-450) k/uL Lymphocytes # (1.0-4.8) k/uL ABG pCO2 (35-45) mmHg ABG pO2 (83-108) mmHg ABG HCO3 (21-25) mmol/L ABG Total CO2 (19-24) mmol/L ABG O2 Saturation (94-97) % VBG pCO2 (37-51) mmHg VBG HCO3 (24-28) mmol/L Sodium (137-145) mmol/L Chloride (98-107) mmol/L Carbon Dioxide (22-30) mmol/L BUN (9-20) mg/dL Creatinine (0.66-1.25) mg/dL Glucose (74-99) mg/dL POC Glucose (mg/dL) 108 H 136 H (75-99) mg/dL Calcium (8.4-10.2) mg/dL AST (17-59) U/L ALT (4-49) U/L Alkaline Phosphatase (38-126) U/L Total Protein (6.3-8.2) g/dL Albumin (3.5-5.0) g/dL Crossmatch - Imaging and Cardiology Chest x-ray: report reviewed, image reviewed Assessment and Plan Assessment: 1. Triple-vessel coronary artery disease, non-STEMI and admission, status post triple-vessel coronary artery bypass grafting surgery 2. Acute systolic heart failure present on admission, EF 30-35% 3. First-degree heart block, paroxysmal episodes of second-degree and complete heart block this admission 4. Preoperative paroxysmal atrial fibrillation, status post bilateral pulmonary vein isolation using bipolar radiofrequency energy from Atricure and exclusion of his left atrial appendage using a 40 mm Atriclip 5. Acute kidney injury 6. Elevated CRP, pro-calcitonin on admission 7. Aortic stenosis, status post aortic valve replacement using a 23 mm pericard ial bioprosthetic Inspiris valve 8. History of hypertension 9. History of hyperlipidemia, treated, cholesterol 129, LDL 71 10. Sbu-plnbnxh-gmozyxrsl diabetes, hemoglobin A1c 8.6% 11. Lifetime nonsmoker, preoperative FEV1 72% of predicted 12. Family history of heart disease 13. Remains unvaccinated against covid 14. Postoperative acute blood loss anemia, expected given hemodilution and cardiopulmonary bypass 15. Hypotension, multifactorial, could be secondary to postoperative acute blood loss anemia and preoperative ejection fraction of 30-35% 16. Transaminitis, AST 1113 and ALT 497 Plan: 1. Continue low-dose aspirin and Plavix. Will continue to hold off on his beta jose raul this time due to episodes of bradycardia, first degree, second degree and complete heart block preoperatively. We will start beta jose raul when able to tolerate. 2. Continue to hold statin at this time due to his elevated liver enzymes. Once his liver enzymes are normalized we will restart his statin. 3. Wean O2 as tolerated. Encourage incentive spirometry use. Bronchodilators per pulmonology/critical care medicine. 4. Increase activity, ambulate as tolerated. PT/OT/cardiac rehab following. 5. Will monitor daily labs and chest x-rays. Electrolyte replacement per p rotocol. Avoid nephrotoxic agents. 6. GI/DVT prophylaxis. 7. Insulin management per primary care service. The patient is a diabetic with a preoperative hemoglobin A1c of 8.6%. He will need tight glucose control to prevent sternal wound infection and promote healing. 8. Continue right IJ Cordis and Hancock-Adalberto catheter with hemodynamic monitoring. Continue Primacor drip at 0.03 mcg/kg/m. 9. Pain control with current medication regimen. Due to the improvement in the patient's mentation today is [place] 5/325 mg was restarted 1-2 tablets by mouth every 6 hours when necessary pain. 10. Will discontinue left lower extremity KANCHAN drain. 11. We will discontinue his mediastinal chest tubes, keep the left and right pleural chest tube for another 24 hours to low continuous wall suction. 12. Continue Nava catheter for another 24 hours for strict accurate intake and output. 13. Continue to wean norepinephrine drip and vasopressin drip as tolerated to keep a mean arterial pressure of 70 or greater. Decrease vasopressin to 0.02 units per minute. 14. Continue atrial and ventricular epicardial pacemaker wires, keep pacemaker generator at an AAI of 80 BPM. 15. Lasix 40 mg IV 1 now. 16. Send mixed venous gases this a.m. 17. 1 g of calcium gluconate IV piggyback 1 now. 18. More recommendations to follow based on patient's clinical course. Time with Patient: Greater than 30
--- NOTE | 2021-07-24 09:42 | P.PN ---
Subjective Progress Note Date: 07/24/21 07/20/2021, the patient is doing well. The patient free of any chest pain. The patient is hemodynamically stable. The patient underwent DELVIS today and the patient was found to have moderate to severe aortic stenosis with a valve area of 1.2 cm. As such the plan is to proceed with bypass only without any valvular surgery. The patient's otherwise is doing well. No respiratory difficulties. His breathing is better as the patient's CHF has been optimized. The patient's ejection fraction is around 30-35%. The patient's creatinine is slightly up to 1.5 on today's evaluation. Renal ultrasound shows no evidence of any hydronephrosis. 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 Meanwhile, the patient remains on oxygen 2 L per minute nasal cannula. No other significant events otherwise. No significant cough or sputum production chest that is so wheezing. The patient remains on IV heparin. The patient is also on oral Lasix for now. The patient FEV1 is noted of 72% of predicted. The patient underwent a CAT scan of the chest today and showed calcification of the aortic arch, bilateral pleural effusions small in addition to cardiomegaly. No other acute abnormalities were seen. 07/21/2021, the patient is still stable on IV heparin the patient is headed to his cardiac surgery. I was informed by the nurse practitioner from cardiothoracic team and the patient is going to have a valve surgery/replacement along with coronary artery bypass surgery. He is doing well. He remains on 2 L about 2 by nasal cannula with pulse ox of 99%. No blood work from today shows a white cell count of 4.3 with a hemoglobin 4.5. Creatinine from today's improvements currently at 1.28 with a BMI of 28 and a PTT is therapeutic and the levels of 47. Glucose at home and 16. No cardiac arrhythmias. No other complaints otherwise. The patient is seen today 07/23/2021 in follow-up in the intensive care unit. This is postoperative day #1 of a triple vessel coronary artery bypass grafting using the BAIN to the LAD, reverse saphenous vein graft to the second obtuse marginal, third obtuse marginal. Aortic valve replacement using a 23 mm pericardial bioprosthetic Inspiris. He was successfully extubated at 10:15 last evening. Currently on 4 L high flow nasal cannula to maintain O2 saturation in the mid 90s. Chest x-ray showing interval development of mild pulmonary vascular congestion and a probable small bilateral effusions. He is sitting up in a chair at the bedside. He is arousable. He drifts off easily. He is oriented 1 to person. Somewhat slow to respond. Very weak. He did have hypotension postoperatively with some acute blood loss anemia. His ejection fraction is 30-35%. He is currently requiring norepinephrine at 0.14 g per kilogram per minute. He is on vasopressin at 0.03 units per minute. Primacor at 0.03 mcg/kg/m. Right IJ Cordis and [place] skin catheter in place. Current cardiac output 4.6. Cardiac index 2.2. PA pressures 39/15 with a CVP of 14. He is on insulin drip at 4 units per hour. 0.9% normal saline at 50 MLS per hour. He is currently in an atrial paced rhythm at 80 bpm. Pacer wires in place. Mediastinal, right and left pleural chest tubes remain in place. Urine output is adequate. White count 6.3. Hemoglobin 7.3. Platelets 108. Sodium 136. Potassium 5.0. Bicarb 20. BUN 22. Creatinine 1.62. Blood glucose 127. AST 568. ALT 343. Arterial blood gases revealed a pO2 of 84, P CO2 of 30 and a pH of 7.43. He is continued on heparin subcu for DVT prophylaxis. Protonix for GI prophylaxis. 13 2020, the patient is sitting up on a chair. He is postop day #2 following coronary artery bypass surgery and aortic valve replacement. The patient was extubated and he is currently on oxygen by nasal cannula at 2 L. They did use BiPAP on and off post extubation. He was briefly placed on BiPAP yesterday and currently is on 2 L of oxygen by nasal cannula. He is using incentive spirometer. He is weak. His still lethargic. He is not confused. He is m oving all 4 extremities without any limitation. The chest x-ray from today is showing adequate expansion of both lungs. Chest tubes are still in place. Some atelectatic changes in the lung bases bilaterally. No evidence of any pneumothorax. [place]-Adalberto catheter remains in a good location. Meanwhile, the patient remains on a combination of inotropes. He is on milrinone running at 0.3 back to respiratory kilogram per minute and he is also on vasopressin at 0.02 units an hour/minutes and he is also on norepinephrine infusion at 0.04 mcg/kg per minute. His cardiac output is at 4.2 with an index of 2. Pulmonary artery pressures of 43/22. Chest tubes are in place. The patient has 2 medias tinal and 1 left pleural chest tube. Output was noted. The output is in order of less than 100 mL over the past shift and there is no evidence of any air leak. The patient's cardiac rhythm is a atrial fibrillation, slightly tachycardic and the patient is going to be started on amiodarone drip. In terms of his other work, the patient had developed an acute kidney injury. Creatinine was up to 1.6. Today's creatinine is still at 1.6 with a BUN of 26. Sodium is at 140, potassium is at 4.6. White cell count is at 7.3 with a hemoglobin of 9.1 and platelet count of 85. Liver function tests are on the rise. ALT is up to 1133 and AST is up to 497. Insulin drip is still running at the rate of 5 units an hour. Objective - Vital Signs Vital signs: Vital Signs Temp 99.0 F 07/24/21 08:00 Pulse 112 H 07/24/21 09:15 Resp 20 07/24/21 09:15 BP 113/60 07/24/21 08:45 Pulse Ox 95 07/24/21 09:15 Intake & Output 07/23/21 07/24/21 07/24/21 18:59 06:59 18:59 Intake Total 2225.679 1014.789 130.18 Output Total 1177 1295 250 Balance 1048.679 -280.211 -119.82 Weight 91 kg 89.3 kg Intake: IV 888.99 881.09 130.18 CARDIAC OUTPUT 0.9 Sodium 80 120 Chloride Milrinone-D5w Pmx 20 mg 51.49 4.59 9.18 In Dextrose/Water 1 100ml .bag @ Per Protocol IV . Q0M [facility] Rx#:[id number] PRESSURE BAG 0.9 Sodium 108 102 12 Chloride Sodium Chloride 0.9% 1, 600 650 100 000 ml @ 20 mls/hr IV . Q24H [facility] Rx#:[id number] Sodium Chloride 0.9% 50 49.50 4.5 9.0 ml @ 0.03 UNITS/MIN 4.59 mls/hr IVPB .Q11H7M ONE with Vasopressin 20 unit Rx#:[id number] Intake, IV Titration 650.689 133.699 Amount Insulin Regular 100 unit 42.689 77.071 In Sodium Chloride 0.9% 100 ml @ Per Protocol IV .Q0M [facility] Rx#:[id number] Milrinone-D5w Pmx 20 mg 100 In Dextrose/Water 1 100ml .bag @ Per Protocol IV . Q0M [facility] Rx#:[id number] Norepinephrine 4 mg In 508.000 56.628 Sodium Chloride 0.9% 250 ml @ 0.02 MCG/KG/MIN 6. 934 mls/hr IV .Q24H [facility] Rx#:[id number] Oral 100 Blood Product 586 Rc As-1 Unit 310 [id number] Rc Pheresis 2 As3 Unit 276 [id number] Output: Chest Tube Drainage 590 180 250 Chest Tube Left Lateral 200 70 140 Chest Chest Tube Mediastinal 200 80 50 Chest Tube Right Lateral 190 30 60 Chest Drainage 50 40 Left Calf 50 40 Urine 537 1075 Other: Voiding Method Indwelling Catheter Indwelling Catheter ABP, PAP, CO, CI - Last Documented Arterial Blood Pressure 68/63 Pulmonary Artery Pressure 48/26 Cardiac Output 4.2 Cardiac Index 2 - Exam GENERAL EXAM: Arousable, pleasant 75-year-old gentleman, drifts off easily, slow to respond, weak, on 2 L high flow nasal cannula, fairly, comfortable in no apparent distress. HEAD: Normocephalic. EYES: Normal reaction of pupils, equal size. NOSE: Clear with pink turbinates. THROAT: No erythema or exudates. NECK: Right IJ Cordis with [place]-Adalberto catheter in place. No masses, no JVD. CHEST: Sternal dressing dry and intact. Heart hugger in place. Right, left and mediastinal pleural chest tubes in place. AV pacer wires in place. LUNGS: Equal air entry with faint crackles in the bilateral bases. CVS: S1 and S2 normal with no audible murmur, regular rhythm. ABDOMEN: No hepatosplenomegaly, normal bowel sounds, no guarding or rigidity. SPINE: No scoliosis or deformity SKIN: No rashes CENTRAL NERVOUS SYSTEM: No focal deficits, tone is normal in all 4 extremities. EXTREMITIES: Right radial arterial line in place. Left arm KANCHAN drain in place with scant serosanguineous drainage. Lower left extremity KANCHAN drain in place with scant output. There is 1 + peripheral edema. No clubbing, no cyanosis. Peripheral pulses are intact. - Labs CBC & Chem 7: 07/24/21 04:39 07/24/21 04:38 Labs: Abnormal Lab Results - Last 24 Hours (Table) 07/21/21 07/23/21 07/23/21 Range/Units 08:22 09:05 10:31 RBC (4.30-5.90) m/uL Hgb (13.0-17.5) gm/dL Hct (39.0-53.0) % Plt Count (150-450) k/uL Lymphocytes # (1.0-4.8) k/uL ABG pO2 (83-108) mmHg ABG Total CO2 (19-24) mmol/L ABG O2 Saturation (94-97) % VBG pCO2 36 L (37-51) mmHg VBG HCO3 22 L (24-28) mmol/L Chloride (98-107) mmol/L Carbon Dioxide (22-30) mmol/L BUN (9-20) mg/dL Creatinine (0.66-1.25) mg/dL Glucose (74-99) mg/dL POC Glucose (mg/dL) 131 H (75-99) mg/dL AST (17-59) U/L ALT (4-49) U/L Alkaline Phosphatase (38-126) U/L Total Protein (6.3-8.2) g/dL Albumin (3.5-5.0) g/dL Crossmatch See Detail 07/23/21 07/23/21 07/23/21 Range/Units 12:37 13:34 14:05 RBC (4.30-5.90) m/uL Hgb (13.0-17.5) gm/dL Hct (39.0-53.0) % Plt Count (150-450) k/uL Lymphocytes # (1.0-4.8) k/uL ABG pO2 26 L* (83-108) mmHg ABG Total CO2 25 H (19-24) mmol/L ABG O2 Saturation 45.4 L (94-97) % VBG pCO2 (37-51) mmHg VBG HCO3 (24-28) mmol/L Chloride 108 H (98-107) mmol/L Carbon Dioxide 19 L (22-30) mmol/L BUN 23 H (9-20) mg/dL Creatinine 1.64 H (0.66-1.25) mg/dL Glucose 127 H (74-99) mg/dL POC Glucose (mg/dL) 135 H (75-99) mg/dL AST (17-59) U/L ALT (4-49) U/L Alkaline Phosphatase (38-126) U/L Total Protein (6.3-8.2) g/dL Albumin (3.5-5.0) g/dL Crossmatch 07/23/21 07/23/21 07/23/21 Range/Units 14:05 16:15 17:56 RBC (4.30-5.90) m/uL Hgb (13.0-17.5) gm/dL Hct (39.0-53.0) % Plt Count (150-450) k/uL Lymphocytes # (1.0-4.8) k/uL ABG pO2 (83-108) mmHg ABG Total CO2 (19-24) mmol/L ABG O2 Saturation (94-97) % VBG pCO2 (37-51) mmHg VBG HCO3 (24-28) mmol/L Chloride (98-107) mmol/L Carbon Dioxide (22-30) mmol/L BUN (9-20) mg/dL Creatinine (0.66-1.25) mg/dL Glucose (74-99) mg/dL POC Glucose (mg/dL) 134 H 144 H 137 H (75-99) mg/dL AST (17-59) U/L ALT (4-49) U/L Alkaline Phosphatase (38-126) U/L Total Protein (6.3-8.2) g/dL Albumin (3.5-5.0) g/dL Crossmatch 07/23/21 07/23/21 07/23/21 Range/Units 19:32 20:56 22:13 RBC (4.30-5.90) m/uL Hgb (13.0-17.5) gm/dL Hct (39.0-53.0) % Plt Count (150-450) k/uL Lymphocytes # (1.0-4.8) k/uL ABG pO2 (83-108) mmHg ABG Total CO2 (19-24) mmol/L ABG O2 Saturation (94-97) % VBG pCO2 (37-51) mmHg VBG HCO3 (24-28) mmol/L Chloride (98-107) mmol/L Carbon Dioxide (22-30) mmol/L BUN (9-20) mg/dL Creatinine (0.66-1.25) mg/dL Glucose (74-99) mg/dL POC Glucose (mg/dL) 180 H 155 H 170 H (75-99) mg/dL AST (17-59) U/L ALT (4-49) U/L Alkaline Phosphatase (38-126) U/L Total Protein (6.3-8.2) g/dL Albumin (3.5-5.0) g/dL Crossmatch 07/24/21 07/24/21 07/24/21 Range/Units 00:04 00:06 01:55 RBC (4.30-5.90) m/uL Hgb (13.0-17.5) gm/dL Hct (39.0-53.0) % Plt Count (150-450) k/uL Lymphocytes # (1.0-4.8) k/uL ABG pO2 (83-108) mmHg ABG Total CO2 (19-24) mmol/L ABG O2 Saturation (94-97) % VBG pCO2 (37-51) mmHg VBG HCO3 (24-28) mmol/L Chloride (98-107) mmol/L Carbon Dioxide (22-30) mmol/L BUN (9-20) mg/dL Creatinine (0.66-1.25) mg/dL Glucose (74-99) mg/dL POC Glucose (mg/dL) 48 L 156 H 149 H (75-99) mg/dL AST (17-59) U/L ALT (4-49) U/L Alkaline Phosphatase (38-126) U/L Total Protein (6.3-8.2) g/dL Albumin (3.5-5.0) g/dL Crossmatch 07/24/21 07/24/21 07/24/21 Range/Units 03:43 04:38 04:39 RBC 2.83 L (4.30-5.90) m/uL Hgb 9.1 L D (13.0-17.5) gm/dL Hct 27.8 L (39.0-53.0) % Plt Count 85 L (150-450) k/uL Lymphocytes # 0.7 L (1.0-4.8) k/uL ABG pO2 (83-108) mmHg ABG Total CO2 (19-24) mmol/L ABG O2 Saturation (94-97) % VBG pCO2 (37-51) mmHg VBG HCO3 (24-28) mmol/L Chloride 109 H (98-107) mmol/L Carbon Dioxide (22-30) mmol/L BUN 26 H (9-20) mg/dL Creatinine 1.68 H (0.66-1.25) mg/dL Glucose 113 H (74-99) mg/dL POC Glucose (mg/dL) 129 H (75-99) mg/dL AST 1133 H (17-59) U/L ALT 497 H (4-49) U/L Alkaline Phosphatase 32 L (38-126) U/L Total Protein 5.3 L (6.3-8.2) g/dL Albumin 3.3 L (3.5-5.0) g/dL Crossmatch 07/24/21 07/24/21 07/24/21 Range/Units 05:18 06:46 08:37 RBC (4.30-5.90) m/uL Hgb (13.0-17.5) gm/dL Hct (39.0-53.0) % Plt Count (150-450) k/uL Lymphocytes # (1.0-4.8) k/uL ABG pO2 (83-108) mmHg ABG Total CO2 (19-24) mmol/L ABG O2 Saturation (94-97) % VBG pCO2 (37-51) mmHg VBG HCO3 (24-28) mmol/L Chloride (98-107) mmol/L Carbon Dioxide (22-30) mmol/L BUN (9-20) mg/dL Creatinine (0.66-1.25) mg/dL Glucose (74-99) mg/dL POC Glucose (mg/dL) 108 H 136 H 134 H (75-99) mg/dL AST (17-59) U/L ALT (4-49) U/L Alkaline Phosphatase (38-126) U/L Total Protein (6.3-8.2) g/dL Albumin (3.5-5.0) g/dL Crossmatch Assessment and Plan Plan: 1 Acute non-ST segment elevated myocardial infarction and multivessel coronary artery disease and severe aortic valve stenosis, status post three-vessel coronary artery bypass grafting with BAIN to the LAD, SVG to the OM 2 and OM 3, and aortic valve replacement on 07/22/2021. She remains in the intensive care unit. The patient is postop day #2. Postop, the patient required inotropes for hemodynamic support. Cardiac output and index remains low. The patient developed an acute kidney injury and shock liver. Currently still on low-dose norepinephrine infusion and milrinone. Hemodynamically parameters are being mon itored. The patient was extubated successfully. Nevertheless, he continued to be on inotropes. Chest tubes are still in place. Cardiac rhythm flipped into atrial fibrillation today. Note that his preop ejection fraction was around 30- 35%. Chest x-ray was noted from today. No significant pneumothorax. Small effusions in the left lung base along with some atelectatic changes bilaterally. Currently on 2 L of oxygen by nasal cannula. [place]-Adalberto catheter remains in place. Chest tubes are in place. Received a total of 2 units of packed RBC postop. 2 Acute systolic congestive heart failure with an ejection fraction of 30-35%. His preop CT chest showed bilateral pleural effusions with cardiomegaly 3 Routine postoperative ventilator management successfully extubated on 07/22/2021 at 10:15 PM. Currently on 2 L nasal cannula. 4 Hypotension, multifactorial, related to postoperative bleeding, and poor ejection fraction currently on small dose of vasopressors in the form of nor epinephrine at 0.14mics per kilogram per minute, vasopressin is at 0.03 units per minute, and Primacor 5 Acute hypoxic respiratory failure secondary to above , the patient is currently on 2 L about 2 by nasal cannula. His was utilizing BiPAP on and off during the day yesterday. 6 Hypertension, history of 7 Hyperlipidemia 8 Diabetes mellitus type 2, still on insulin drip at 5 units an hour 9 Acute kidney injury likely cardiorenal and his kidney function has been closely monitored, creatinine stable 10 Acute blood loss anemia, expected outcome of surgery, current hemoglobin 7.3, received a total of 2 units of packed RBCs yesterday and hemoglobin is currently up to 9.1. 11 shock liver 12 new onset atrial fibrillation with rapid ventricular response Plan: Patient liters about 2 by nasal cannula Utilized incentive spirometer May be able to remove the chest tubes today Amiodarone drip per protocol regarding the onset atrial fibrillation Continue milrinone and wean off norepinephrine and monitor the hemodynamic profile And a blood pressure urine output is adequate and the patient will be given a dose of Lasix 40 mg IV push Creatinine is stable LFTs are on the rise He was given a unit of packed RBC and hemoglobin is up to 9.3 Mental status is improved and there is no focal neurological deficits Continue insulin drip for blood sugar control BiPAP if needed We will continue to monitor him closely here in the ICU. We will continue to follow and make further recommendations based on his clinical status
[2021-07-24 09:44] LABS: VBG PH 7.38 (7.31-7.41)
[2021-07-24] MEDS ORDERED: CALCIUM GLUCONATE 1 GM in SODIUM CHLORIDE 0.9% 100 ML IVPB ONE (10:00)
[2021-07-24] MEDS ORDERED: AMIODARONE 360 MG in DEXTROSE 5% IN WATER 200 ML IV ONE ×2 (10:00)
[2021-07-24] MEDS ORDERED: AMIODARONE IN DEXTROSE,ISO-OSM 360 MG/200 ML PLAST..BAG IV ONE (10:06)
[2021-07-24] MEDS ORDERED: AMIODARONE IN DEXTROSE,ISO-OSM 150 MG/100 ML PLAST..BAG IV ONE (10:06)
[2021-07-24 10:30] LABS: Glucose,Whole Blood 169 mg/dL (75-99)
[2021-07-24] MEDS: CLOPIDOGREL 75 MG TAB PO SCH (10:49)
[2021-07-24] MEDS: PANTOPRAZOLE 40 MG TABLET PO SCH (10:49)
[2021-07-24 12:08] LABS: Glucose,Whole Blood 156 mg/dL (75-99)
--- NOTE | 2021-07-24 12:37 | PN ---
PROGRESS NOTE Patient is seen for followup for acute kidney injury on top of chronic kidney disease. He is status post coronary artery bypass surgery, postoperative day number 2. Patient remains on small dose of Levophed, vasopressin and Primacor. He did have hyperkalemia initially, but this has improved and his potassium is now staying at 4.6 to 5.1 mEq/L. Hemoglobin had dropped and patient received a unit of packed RBCs. No obvious GI bleed noted at this time. Urine output is at 50 to 80 mL/hour. On examination today, patient is comfortable. He is not in any acute distress. Blood pressure 113/60, heart rate 130 per minute. He is afebrile. EXAMINATION OF THE HEART: S1 and S2. EXAMINATION OF LUNGS: Bilateral breath sounds are heard. Abdomen is soft. Examination of lower extremities shows edema 1+ bilaterally. SAND POLISHER EXAM: Grossly intact. Labs show sodium 140, potassium 4.6, chloride 109. CO2 is 24, BUN 26, creatinine 1.68, hemoglobin 9.1 g/dL. ASSESSMENT: 1. Acute kidney injury, acute tubular necrosis, currently stable, with urine output at 50 to 80 mL/hour. Scheduled to receive a dose of IV Lasix today, which is which okay. 2. Chronic kidney disease with baseline creatinine 1 to 1.19 mg/dL secondary to nephrosclerosis. UA has been completely benign. This is NKF stage 3A. Ultrasound of the kidneys shows no hydronephrosis. Both kidneys are about 11 cm. 3. Coronary artery disease, status post coronary artery bypass surgery, postoperative day number 2. 4. Anemia postoperatively. No active GI bleed noted. Status post packed RBCs transfusion. Iron profile will be ordered. 5. Atrial fibrillation with rapid ventricular response; started on amiodarone drip. PLAN: Check iron profile. Repeat labs in a.m. MMODL / IJN: [id number] /
--- NOTE | 2021-07-24 13:09 | P.PN ---
Subjective Patient looks a lot better today. His color is a lot better He is not in respiratory distress line he is lying comfortably in bed sleeping His cardiac output is still reduced and he is on IV milrinone, IV vasopressin and IV norepinephrine He went into atrial fibrillation briefly in his and started IV amiodarone Afebrile respirations 20-22 Blood pressure 115/79 mmHg Hemoglobin 9.1 platelet count 85,000 Sodium 140, potassium 4.6 BUN 26 creatinine 1.68 AST 1133, ALT 497 Impression Multivessel CAD Ischemic cardio myopathy Congestive heart failure with reduced LV systolic function Postoperative anemia, severe requiring blood transfusion Reduced cardiac output requiring inotropic agents postoperatively Slight improvement since yesterday Plan Continue current ICU care Continuous dual antiplatelet therapy Continue intravenous inotropic agents while gradually minimizing pressors Once he comes off the pressors he will need his cardio myopathy medications restarted He has a documented paroxysmal AV block and I would recommend ICD implantation ONE-TWO DAYS prior to discharge There is no urgency to implant an ICD while he still in the ICU since he has no evidence for AV block Objective - Vital Signs Vital signs: Vital Signs Temp 98.6 F 07/24/21 12:00 Pulse 95 07/24/21 12:00 Resp 35 H 07/24/21 12:00 BP 115/79 07/24/21 12:00 Pulse Ox 95 07/24/21 12:00 Intake & Output 07/23/21 07/24/21 07/24/21 18:59 06:59 18:59 Intake Total 2225.679 1014.789 426.806 Output Total 1177 1295 395 Balance 1048.679 -280.211 31.806 Weight 91 kg 89.3 kg Intake: IV 888.99 881.09 266.36 CARDIAC OUTPUT 0.9 Sodium 80 120 40 Chloride Milrinone-D5w Pmx 20 mg 51.49 4.59 9.18 In Dextrose/Water 1 100ml .bag @ Per Protocol IV . Q0M [facility] Rx#:[id number] PRESSURE BAG 0.9 Sodium 108 102 30 Chloride Sodium Chloride 0.9% 1, 600 650 160 000 ml @ 20 mls/hr IV . Q24H [facility] Rx#:[id number] Sodium Chloride 0.9% 50 49.50 4.5 9.0 ml @ 0.03 UNITS/MIN 4.59 mls/hr IVPB .Q11H7M ONE with Vasopressin 20 unit Rx#:[id number] Sodium Chloride 0.9% 50 9.18 ml @ 0.03 UNITS/MIN 4.59 mls/hr IVPB .Q11H7M [facility] with Vasopressin 20 unit Rx#:[id number] milrinone 9.0 Intake, IV Titration 650.689 133.699 160.446 Amount Insulin Regular 100 unit 42.689 77.071 29.736 In Sodium Chloride 0.9% 100 ml @ Per Protocol IV .Q0M [facility] Rx#:[id number] Milrinone-D5w Pmx 20 mg 100 In Dextrose/Water 1 100ml .bag @ Per Protocol IV . Q0M [facility] Rx#:[id number] Norepinephrine 4 mg In 508.000 56.628 130.710 Sodium Chloride 0.9% 250 ml @ 0.02 MCG/KG/MIN 6. 934 mls/hr IV .Q24H [facility] Rx#:[id number] Oral 100 Blood Product 586 Rc As-1 Unit 310 [id number] Rc Pheresis 2 As3 Unit 276 [id number] Output: Chest Tube Drainage 590 180 290 Chest Tube Left Lateral 200 70 160 Chest Chest Tube Mediastinal 200 80 50 Chest Tube Right Lateral 190 30 80 Chest Drainage 50 40 Left Calf 50 40 Urine 537 1075 105 Other: Voiding Method Indwelling Catheter Indwelling Catheter ABP, PAP, CO, CI - Last Documented Arterial Blood Pressure 111/82 Pulmonary Artery Pressure 44/21 Cardiac Output 4 Cardiac Index 1.9 - Labs CBC & Chem 7: 07/24/21 04:39 07/24/21 04:38 Labs: Abnormal Lab Results - Last 24 Hours (Table) 07/21/21 07/23/21 07/23/21 Range/Units 08:22 13:34 14:05 RBC (4.30-5.90) m/uL Hgb (13.0-17.5) gm/dL Hct (39.0-53.0) % Plt Count (150-450) k/uL Lymphocytes # (1.0-4.8) k/uL ABG pO2 26 L* (83-108) mmHg ABG Total CO2 25 H (19-24) mmol/L ABG O2 Saturation 45.4 L (94-97) % VBG pCO2 (37-51) mmHg VBG HCO3 (24-28) mmol/L Chloride 108 H (98-107) mmol/L Carbon Dioxide 19 L (22-30) mmol/L BUN 23 H (9-20) mg/dL Creatinine 1.64 H (0.66-1.25) mg/dL Glucose 127 H (74-99) mg/dL POC Glucose (mg/dL) (75-99) mg/dL AST (17-59) U/L ALT (4-49) U/L Alkaline Phosphatase (38-126) U/L Total Protein (6.3-8.2) g/dL Albumin (3.5-5.0) g/dL Crossmatch See Detail 07/23/21 07/23/21 07/23/21 Range/Units 14:05 16:15 17:56 RBC (4.30-5.90) m/uL Hgb (13.0-17.5) gm/dL Hct (39.0-53.0) % Plt Count (150-450) k/uL Lymphocytes # (1.0-4.8) k/uL ABG pO2 (83-108) mmHg ABG Total CO2 (19-24) mmol/L ABG O2 Saturation (94-97) % VBG pCO2 (37-51) mmHg VBG HCO3 (24-28) mmol/L Chloride (98-107) mmol/L Carbon Dioxide (22-30) mmol/L BUN (9-20) mg/dL Creatinine (0.66-1.25) mg/dL Glucose (74-99) mg/dL POC Glucose (mg/dL) 134 H 144 H 137 H (75-99) mg/dL AST (17-59) U/L ALT (4-49) U/L Alkaline Phosphatase (38-126) U/L Total Protein (6.3-8.2) g/dL Albumin (3.5-5.0) g/dL Crossmatch 07/23/21 07/23/21 07/23/21 Range/Units 19:32 20:56 22:13 RBC (4.30-5.90) m/uL Hgb (13.0-17.5) gm/dL Hct (39.0-53.0) % Plt Count (150-450) k/uL Lymphocytes # (1.0-4.8) k/uL ABG pO2 (83-108) mmHg ABG Total CO2 (19-24) mmol/L ABG O2 Saturation (94-97) % VBG pCO2 (37-51) mmHg VBG HCO3 (24-28) mmol/L Chloride (98-107) mmol/L Carbon Dioxide (22-30) mmol/L BUN (9-20) mg/dL Creatinine (0.66-1.25) mg/dL Glucose (74-99) mg/dL POC Glucose (mg/dL) 180 H 155 H 170 H (75-99) mg/dL AST (17-59) U/L ALT (4-49) U/L Alkaline Phosphatase (38-126) U/L Total Protein (6.3-8.2) g/dL Albumin (3.5-5.0) g/dL Crossmatch 07/24/21 07/24/21 07/24/21 Range/Units 00:04 00:06 01:55 RBC (4.30-5.90) m/uL Hgb (13.0-17.5) gm/dL Hct (39.0-53.0) % Plt Count (150-450) k/uL Lymphocytes # (1.0-4.8) k/uL ABG pO2 (83-108) mmHg ABG Total CO2 (19-24) mmol/L ABG O2 Saturation (94-97) % VBG pCO2 (37-51) mmHg VBG HCO3 (24-28) mmol/L Chloride (98-107) mmol/L Carbon Dioxide (22-30) mmol/L BUN (9-20) mg/dL Creatinine (0.66-1.25) mg/dL Glucose (74-99) mg/dL POC Glucose (mg/dL) 48 L 156 H 149 H (75-99) mg/dL AST (17-59) U/L ALT (4-49) U/L Alkaline Phosphatase (38-126) U/L Total Protein (6.3-8.2) g/dL Albumin (3.5-5.0) g/dL Crossmatch 07/24/21 07/24/21 07/24/21 Range/Units 03:43 04:38 04:39 RBC 2.83 L (4.30-5.90) m/uL Hgb 9.1 L D (13.0-17.5) gm/dL Hct 27.8 L (39.0-53.0) % Plt Count 85 L (150-450) k/uL Lymphocytes # 0.7 L (1.0-4.8) k/uL ABG pO2 (83-108) mmHg ABG Total CO2 (19-24) mmol/L ABG O2 Saturation (94-97) % VBG pCO2 (37-51) mmHg VBG HCO3 (24-28) mmol/L Chloride 109 H (98-107) mmol/L Carbon Dioxide (22-30) mmol/L BUN 26 H (9-20) mg/dL Creatinine 1.68 H (0.66-1.25) mg/dL Glucose 113 H (74-99) mg/dL POC Glucose (mg/dL) 129 H (75-99) mg/dL AST 1133 H (17-59) U/L ALT 497 H (4-49) U/L Alkaline Phosphatase 32 L (38-126) U/L Total Protein 5.3 L (6.3-8.2) g/dL Albumin 3.3 L (3.5-5.0) g/dL Crossmatch 07/24/21 07/24/21 07/24/21 Range/Units 05:18 06:46 08:37 RBC (4.30-5.90) m/uL Hgb (13.0-17.5) gm/dL Hct (39.0-53.0) % Plt Count (150-450) k/uL Lymphocytes # (1.0-4.8) k/uL ABG pO2 (83-108) mmHg ABG Total CO2 (19-24) mmol/L ABG O2 Saturation (94-97) % VBG pCO2 (37-51) mmHg VBG HCO3 (24-28) mmol/L Chloride (98-107) mmol/L Carbon Dioxide (22-30) mmol/L BUN (9-20) mg/dL Creatinine (0.66-1.25) mg/dL Glucose (74-99) mg/dL POC Glucose (mg/dL) 108 H 136 H 134 H (75-99) mg/dL AST (17-59) U/L ALT (4-49) U/L Alkaline Phosphatase (38-126) U/L Total Protein (6.3-8.2) g/dL Albumin (3.5-5.0) g/dL Crossmatch 07/24/21 07/24/21 07/24/21 Range/Units 09:40 10:28 12:07 RBC (4.30-5.90) m/uL Hgb (13.0-17.5) gm/dL Hct (39.0-53.0) % Plt Count (150-450) k/uL Lymphocytes # (1.0-4.8) k/uL ABG pO2 (83-108) mmHg ABG Total CO2 (19-24) mmol/L ABG O2 Saturation (94-97) % VBG pCO2 33 L (37-51) mmHg VBG HCO3 19 L (24-28) mmol/L Chloride (98-107) mmol/L Carbon Dioxide (22-30) mmol/L BUN (9-20) mg/dL Creatinine (0.66-1.25) mg/dL Glucose (74-99) mg/dL POC Glucose (mg/dL) 169 H 156 H (75-99) mg/dL AST (17-59) U/L ALT (4-49) U/L Alkaline Phosphatase (38-126) U/L Total Protein (6.3-8.2) g/dL Albumin (3.5-5.0) g/dL Crossmatch
[2021-07-24 13:37] LABS: Glucose,Whole Blood 182 mg/dL (75-99)
[2021-07-24 15:43] LABS: VBG PH 7.37 (7.31-7.41)
[2021-07-24 15:49] LABS: Glucose,Whole Blood 182 mg/dL (75-99)
[2021-07-24] MEDS: AMIODARONE 450 MG in DEXTROSE 5% IN WATER 250 ML IV SCH ×2 (16:39)
[2021-07-24 18:05] LABS: % Iron Saturation 14.04 (15.00-50.00)
[2021-07-24] MEDS: NOREPINEPHRINE 4 MG in SODIUM CHLORIDE 0.9% 250 ML IV SCH (18:23)
[2021-07-24 18:25] LABS: Glucose,Whole Blood 109 mg/dL (75-99)
[2021-07-24 19:08] LABS: Glucose,Whole Blood 102 mg/dL (75-99)
[2021-07-24 19:16] LABS: ABG Base Excess -2.4 mmol/L; ABG HCO3 23 mmol/L (21-25); ABG PCO2 38 mmHg (35-45); ABG PH 7.38 (7.35-7.45); ABG TCO2 24 mmol/L (19-24); Allen Test Performed? Yes
[2021-07-24 19:21] LABS: ABG PO2 21 mmHg (83-108)
[2021-07-24 19:56] LABS: Glucose,Whole Blood 103 mg/dL (75-99)
[2021-07-24] MEDS: INSULIN REGULAR 100 UNIT in SODIUM CHLORIDE 0.9% 100 ML IV SCH (20:03)
[2021-07-24] MEDS: SENNOSIDES-DOCUSATE SODIUM 1 EACH TAB PO SCH (20:12)
[2021-07-24 21:09] LABS: Glucose,Whole Blood 111 mg/dL (75-99)
[2021-07-24 21:50] LABS: Glucose,Whole Blood 134 mg/dL (75-99)
[2021-07-24 22:50] LABS: Glucose,Whole Blood 133 mg/dL (75-99)
--- NOTE | 2021-07-24 23:21 | P.PN ---
Subjective This is a pleasant 75 years old male with past medical history of Diabetes Mellitus, Hyperlipidemia, Hypertension Patient presents because of the progressive exertional dyspnea and decreased leg swelling over one month, bilateral leg swelling and bilateral neck pain. However yesterday he started getting orthopnea, he could not lay down and his w talita asked him to come to emergency room. Also patient is complaining of from dry cough and sore throat, mouth is making some clear phlegm. He denies chest pain or abdominal pain. No dizziness. He was complaining of from little diarrhea, he felt almost going to vomit this morning but did not. No urinary complaints. No weakness or numbness He denies smoking, alcohol or illicit drugs Vitals are stable and he is saturating 96% on room air. Labs were reviewed including unremarkable CBC except for mild lymphopenia at 0.7, INR is 1.0. Sodium is 124, carbon dioxide 17, creatinine 1.1, glucose 220 Liver enzymes not elevated. Troponin is high as 0.418, C-reactive protein 2.0. ProBNP is 4880 Coronavirus not detected. EKG showing normal sinus rhythm at 85 with first-degree AV block and incomplete right bundle branch block, no significant ST-T changes. Chest x-ray: Interstitial pulmonary edema with increased cardiomegaly In the emergency room patient was started on IV Lasix 40 mg every 8 hours and cardiology team were consulted. 07/17/2021 Patient breathing is better, he does not complain from jaw pain or neck pain anymore, he is breathing easier, less leg edema. Patient is continued on IV Lasix 40 mg twice daily, also he is on heparin drip His sodium is improved today to 1.7 however his creatinine went up to 1.4. Because of his worsening kidney function we hold his metformin and switch him to Amaryl 2 mg daily, patient informed of his uncontrolled diabetes as his hemoglobin A1c is a 42.6%. Echocardiogram showed ejection fraction of 30-35% with moderate mitral regurgitation, 2018 8 was 55-60% Patient possibly will go for cardiac cath tomorrow 07/18/2021 Patient feels better, his breathing is easier. He has no more jaw pain, leg swelling is significantly improved he has crepitationandonlyminimal. He has some wheezing during examination most likely secondary to his CHF, patient is nonsmoker with no history of COPD. He is hemodynamically stable, he is on room air. Creatinine is trending up 1.1, 1.4, and 1.58 today. However sodium significantly improved up to 133. His Lasix was switched to 40 mg by mouth daily. His glucose is controlled 136 and 142 after he was started on Amaryl today we will keep monitoring, metformin was held for his acute kidney injury. He has slight ejection fraction of 30-35% with moderate MR and he needs cardiac cath however it is on hold now to further evaluation for his kidney injury, most likely secondary to diuresis, nephrology team was consulted, renal ultrasound is pending. 81 mg 07/19/2021 Patient breathing is improved close to normal however he has some residual basal crepitation which is mild. Very minimal leg swelling. No much exertional dyspnea. And his diuretics are switched to oral dose again Lasix 40 mg daily His creatinine improved 1.3 from 1.8 yesterday. Glucose less than 150. After switching his metformin and to Amaryl 2 mg daily. Hemoglobin A1c is 8.6% Plan for him to go for cardiac cath today. Renal ultrasound showing no hydronephrosis. Tenderness on home dose of aspirin 81 mg, oral Lasix and metoprolol 07/20/2021 Today with minimal dyspnea however he still have bilateral basal crepitation and leg edema, he is saturating 95-96% on 2 L oxygen via nasal cannula. His creatinine slightly up to 1.5. Glucose controlled. Renal ultrasound showing no hydronephrosis. Cardiac cath yesterday showing severe triple coronary artery disease, referred to thoracic surgery been consulted for possible CABG 07/21/2021 Patient currently sitting in bed looks comfortable, no chest pain, no significant dyspnea. Using his incentive spirometry frequently. He is currently kept on heparin drip. Minimal leg swelling, mild basal crepitation. He is hemodynamically stable. He is saturating 97% on 2 L oxygen via nasal cannula. His sodium 132, creatinine improved to 1.28, glucose controlled while he is on Amaryl 2 mg. His metformin, metoprolol and lisinopril are on hold for hypertension acute kidney injury. Patient currently has been worked up for possible cardiac bypass surgery with cardiovascular surgery team on the case. 07/22/2021 Patient is going for cardiac bypass surgery today. This with no chest pain or dyspnea. Hemodynamically stable. Glucose controlled however it might be needed to be started on insulin drip. Most likely patient will go to the intensive care unit post procedure. We will follow up with him 07/23/2021 Patient status post multiple vessel coronary artery bypass grafting for severe triple coronary artery disease and aortic valve replacement for severe aortic stenosis and today is postop day #1. Patient was sitting in chair, awake but very drowsy however he is able to follow commands with minimal movement. Because of his generalized weakness. Patient has hypotension that required pressors in the form of vasodepressor at 0.03 and levophed at 0.14. Also he has some low-grade temperature at 100.9. He is tachypneic at 29, oxygen saturation and requirements is at 4 L/m. He developed postoperative hyperkalemia at 6.3, corrected with 10 units of insulin and D50 ample down to 5.1. He has drop of hemoglobin down to 7.3 and he is getting 1 unit of blood transfusion. Platelet count 108. Sodium is 132, creatinine 1.6 which is close to baseline as he has chronic kidney disease. Never enzymes significantly elevated with AST 568 and ALT 343. Chest x-ray showing no mild pulmonary vascular congestion and receives one-time dose of IV Lasix 20 mg Also he is on insulin drip while metformin and Amaryl are on hold. Blood pressure medication of metoprolol and lisinopril were held prior to surgery because of hypotension and acute kidney injury. Patient currently kept on home dose of aspirin 81 mg and added Mavik 75 mg 07/24/2021 Patient sitting in chair, his mentation improving today and he follows commands with no difficulty moving her arms or legs but he looks very tired and lethargic. Blood pressure is 93/74. Heart rate is around 70. He had no fever today and his respiratory rate is 24-28 and his oxygen saturation is acceptable and 2 L/m of oxygen. His sodium is 140, creatinine stable at 1.6 but liver enzymes trending up to 1133 and AST and ALT is still up about 497. Glucose controlled on insulin drip. He received one unit of blood transfusion in hemoglobin went up 7.38 to 9.1. Platelets 85K. Lipase is normal at 7.3. Chest x-ray showing postsurgical changes and chest tubes are unchanged in position while there is decrease in vascular congestion. His pO2 was one and he is currently on BiPAP with FiO2 of 40%. He remains on amiodarone drip which is added for new onset A. fib. Also his continued on aspirin 81 mg which is home dose and added Plavix in the hospital. Objective - Vital Signs Vital signs: Vital Signs Temp 99.3 F 07/24/21 16:00 Pulse 70 07/24/21 22:15 Resp 24 07/24/21 22:15 BP 96/65 07/24/21 22:15 Pulse Ox 97 07/24/21 22:15 Intake & Output 07/24/21 07/24/21 07/25/21 06:59 18:59 06:59 Intake Total 1014.789 943.442 351.268 Output Total 1295 645 100 Balance -280.211 298.442 251.268 Weight 89.3 kg Intake: IV 881.09 636.84 132 CARDIAC OUTPUT 0.9 Sodium 120 90 23 Chloride Milrinone-D5w Pmx 20 mg 4.59 9.18 In Dextrose/Water 1 100ml .bag @ Per Protocol IV . Q0M BISHOP Rx#:[id number] PRESSURE BAG 0.9 Sodium 102 84 9 Chloride Sodium Chloride 0.9% 1, 650 330 100 000 ml @ 20 mls/hr IV . Q24H BISHOP Rx#:[id number] Sodium Chloride 0.9% 50 4.5 9.0 ml @ 0.03 UNITS/MIN 4.59 mls/hr IVPB .Q11H7M ONE with Vasopressin 20 unit Rx#:[id number] Sodium Chloride 0.9% 50 40.95 ml @ 0.03 UNITS/MIN 4.59 mls/hr IVPB .Q11H7M BISHOP with Vasopressin 20 unit Rx#:[id number] milrinone 73.71 Intake, IV Titration 133.699 256.602 219.268 Amount Insulin Regular 100 unit 77.071 54.145 0 In Sodium Chloride 0.9% 100 ml @ Per Protocol IV .Q0M BISHOP Rx#:[id number] Milrinone-D5w Pmx 20 mg 100 In Dextrose/Water 1 100ml .bag @ Per Protocol IV . Q0M BISHOP Rx#:[id number] Norepinephrine 4 mg In 56.628 202.457 119.268 Sodium Chloride 0.9% 250 ml @ 0.02 MCG/KG/MIN 6. 934 mls/hr IV .Q24H BISHOP Rx#:[id number] Oral 50 Output: Chest Tube Drainage 180 390 40 Chest Tube Left Lateral 70 210 20 Chest Chest Tube Mediastinal 80 50 Chest Tube Right Lateral 30 130 20 Chest Drainage 40 40 Left Calf 40 40 Urine 1075 215 60 Other: Voiding Method Indwelling Catheter Indwelling Catheter Indwelling Catheter ABP, PAP, CO, CI - Last Documented Arterial Blood Pressure 112/46 Pulmonary Artery Pressure 33/18 Cardiac Output 3.6 Cardiac Index 1.7 - Exam GENERAL: The patient is alert and oriented x3, not in any acute distress. Well developed, well nourished. HEENT: Pupils are round and equally reacting to light. EOMI. No scleral icterus. No conjunctival pallor. Normocephalic, atraumatic. No pharyngeal erythema. No thyromegaly. CARDIOVASCULAR: S1 and S2 present. No murmurs, rubs, or gallops. -PULMONARY: Chest is clear to auscultation, no wheezing . Bilateral basal crepitation ABDOMEN: Soft, nontender, nondistended, normoactive bowel sounds. No palpable organomegaly. MUSCULOSKELETAL: No joint swelling or deformity. -EXTREMITIES: No cyanosis, clubbing, . Bilateral pitting leg edema. NEUROLOGICAL: Gross neurological examination did not reveal any focal deficits. SKIN: No rashes. No petechiae - Labs CBC & Chem 7: 07/24/21 04:39 07/24/21 04:38 Labs: Abnormal Lab Results - Last 24 Hours (Table) 07/24/21 07/24/21 07/24/21 Range/Units 00:04 00:06 01:55 RBC (4.30-5.90) m/uL Hgb (13.0-17.5) gm/dL Hct (39.0-53.0) % Plt Count (150-450) k/uL Lymphocytes # (1.0-4.8) k/uL ABG pO2 (83-108) mmHg ABG O2 Saturation (94-97) % ABG Lactic Acid (0.5-1.6) mmol/L VBG pCO2 (37-51) mmHg VBG HCO3 (24-28) mmol/L Chloride (98-107) mmol/L BUN (9-20) mg/dL Creatinine (0.66-1.25) mg/dL Glucose (74-99) mg/dL POC Glucose (mg/dL) 48 L 156 H 149 H (75-99) mg/dL Iron (65-175) ug/dL TIBC (228-460) ug/dL % Saturation (15.00-50.00) Transferrin (204.0-354.0) mg/dL AST (17-59) U/L ALT (4-49) U/L Alkaline Phosphatase (38-126) U/L Total Protein (6.3-8.2) g/dL Albumin (3.5-5.0) g/dL 07/24/21 07/24/21 07/24/21 Range/Units 03:43 04:38 04:39 RBC 2.83 L (4.30-5.90) m/uL Hgb 9.1 L D (13.0-17.5) gm/dL Hct 27.8 L (39.0-53.0) % Plt Count 85 L (150-450) k/uL Lymphocytes # 0.7 L (1.0-4.8) k/uL ABG pO2 (83-108) mmHg ABG O2 Saturation (94-97) % ABG Lactic Acid (0.5-1.6) mmol/L VBG pCO2 (37-51) mmHg VBG HCO3 (24-28) mmol/L Chloride 109 H (98-107) mmol/L BUN 26 H (9-20) mg/dL Creatinine 1.68 H (0.66-1.25) mg/dL Glucose 113 H (74-99) mg/dL POC Glucose (mg/dL) 129 H (75-99) mg/dL Iron (65-175) ug/dL TIBC (228-460) ug/dL % Saturation (15.00-50.00) Transferrin (204.0-354.0) mg/dL AST 1133 H (17-59) U/L ALT 497 H (4-49) U/L Alkaline Phosphatase 32 L (38-126) U/L Total Protein 5.3 L (6.3-8.2) g/dL Albumin 3.3 L (3.5-5.0) g/dL 07/24/21 07/24/21 07/24/21 Range/Units 04:39 05:18 06:46 RBC (4.30-5.90) m/uL Hgb (13.0-17.5) gm/dL Hct (39.0-53.0) % Plt Count (150-450) k/uL Lymphocytes # (1.0-4.8) k/uL ABG pO2 (83-108) mmHg ABG O2 Saturation (94-97) % ABG Lactic Acid (0.5-1.6) mmol/L VBG pCO2 (37-51) mmHg VBG HCO3 (24-28) mmol/L Chloride (98-107) mmol/L BUN (9-20) mg/dL Creatinine (0.66-1.25) mg/dL Glucose (74-99) mg/dL POC Glucose (mg/dL) 108 H 136 H (75-99) mg/dL Iron 23 L (65-175) ug/dL TIBC 162 L (228-460) ug/dL % Saturation 14.04 L (15.00-50.00) Transferrin 116.0 L (204.0-354.0) mg/dL AST (17-59) U/L ALT (4-49) U/L Alkaline Phosphatase (38-126) U/L Total Protein (6.3-8.2) g/dL Albumin (3.5-5.0) g/dL 07/24/21 07/24/21 07/24/21 Range/Units 08:37 09:40 10:28 RBC (4.30-5.90) m/uL Hgb (13.0-17.5) gm/dL Hct (39.0-53.0) % Plt Count (150-450) k/uL Lymphocytes # (1.0-4.8) k/uL ABG pO2 (83-108) mmHg ABG O2 Saturation (94-97) % ABG Lactic Acid (0.5-1.6) mmol/L VBG pCO2 33 L (37-51) mmHg VBG HCO3 19 L (24-28) mmol/L Chloride (98-107) mmol/L BUN (9-20) mg/dL Creatinine (0.66-1.25) mg/dL Glucose (74-99) mg/dL POC Glucose (mg/dL) 134 H 169 H (75-99) mg/dL Iron (65-175) ug/dL TIBC (228-460) ug/dL % Saturation (15.00-50.00) Transferrin (204.0-354.0) mg/dL AST (17-59) U/L ALT (4-49) U/L Alkaline Phosphatase (38-126) U/L Total Protein (6.3-8.2) g/dL Albumin (3.5-5.0) g/dL 07/24/21 07/24/21 07/24/21 Range/Units 12:07 13:35 15:38 RBC (4.30-5.90) m/uL Hgb (13.0-17.5) gm/dL Hct (39.0-53.0) % Plt Count (150-450) k/uL Lymphocytes # (1.0-4.8) k/uL ABG pO2 (83-108) mmHg ABG O2 Saturation (94-97) % ABG Lactic Acid (0.5-1.6) mmol/L VBG pCO2 (37-51) mmHg VBG HCO3 21 L (24-28) mmol/L Chloride (98-107) mmol/L BUN (9-20) mg/dL Creatinine (0.66-1.25) mg/dL Glucose (74-99) mg/dL POC Glucose (mg/dL) 156 H 182 H (75-99) mg/dL Iron (65-175) ug/dL TIBC (228-460) ug/dL % Saturation (15.00-50.00) Transferrin (204.0-354.0) mg/dL AST (17-59) U/L ALT (4-49) U/L Alkaline Phosphatase (38-126) U/L Total Protein (6.3-8.2) g/dL Albumin (3.5-5.0) g/dL 07/24/21 07/24/21 07/24/21 Range/Units 15:48 18:24 19:06 RBC (4.30-5.90) m/uL Hgb (13.0-17.5) gm/dL Hct (39.0-53.0) % Plt Count (150-450) k/uL Lymphocytes # (1.0-4.8) k/uL ABG pO2 (83-108) mmHg ABG O2 Saturation (94-97) % ABG Lactic Acid (0.5-1.6) mmol/L VBG pCO2 (37-51) mmHg VBG HCO3 (24-28) mmol/L Chloride (98-107) mmol/L BUN (9-20) mg/dL Creatinine (0.66-1.25) mg/dL Glucose (74-99) mg/dL POC Glucose (mg/dL) 182 H 109 H 102 H (75-99) mg/dL Iron (65-175) ug/dL TIBC (228-460) ug/dL % Saturation (15.00-50.00) Transferrin (204.0-354.0) mg/dL AST (17-59) U/L ALT (4-49) U/L Alkaline Phosphatase (38-126) U/L Total Protein (6.3-8.2) g/dL Albumin (3.5-5.0) g/dL 07/24/21 07/24/21 07/24/21 Range/Units 19:13 19:53 19:55 RBC (4.30-5.90) m/uL Hgb (13.0-17.5) gm/dL Hct (39.0-53.0) % Plt Count (150-450) k/uL Lymphocytes # (1.0-4.8) k/uL ABG pO2 21 L* (83-108) mmHg ABG O2 Saturation 31.0 L (94-97) % ABG Lactic Acid 1.8 H (0.5-1.6) mmol/L VBG pCO2 (37-51) mmHg VBG HCO3 (24-28) mmol/L Chloride (98-107) mmol/L BUN (9-20) mg/dL Creatinine (0.66-1.25) mg/dL Glucose (74-99) mg/dL POC Glucose (mg/dL) 103 H (75-99) mg/dL Iron (65-175) ug/dL TIBC (228-460) ug/dL % Saturation (15.00-50.00) Transferrin (204.0-354.0) mg/dL AST (17-59) U/L ALT (4-49) U/L Alkaline Phosphatase (38-126) U/L Total Protein (6.3-8.2) g/dL Albumin (3.5-5.0) g/dL 07/24/21 07/24/21 07/24/21 Range/Units 21:08 21:49 22:48 RBC (4.30-5.90) m/uL Hgb (13.0-17.5) gm/dL Hct (39.0-53.0) % Plt Count (150-450) k/uL Lymphocytes # (1.0-4.8) k/uL ABG pO2 (83-108) mmHg ABG O2 Saturation (94-97) % ABG Lactic Acid (0.5-1.6) mmol/L VBG pCO2 (37-51) mmHg VBG HCO3 (24-28) mmol/L Chloride (98-107) mmol/L BUN (9-20) mg/dL Creatinine (0.66-1.25) mg/dL Glucose (74-99) mg/dL POC Glucose (mg/dL) 111 H 134 H 133 H (75-99) mg/dL Iron (65-175) ug/dL TIBC (228-460) ug/dL % Saturation (15.00-50.00) Transferrin (204.0-354.0) mg/dL AST (17-59) U/L ALT (4-49) U/L Alkaline Phosphatase (38-126) U/L Total Protein (6.3-8.2) g/dL Albumin (3.5-5.0) g/dL Assessment and Plan Assessment: severe triple coronary artery diseas, status post multiple vessel CABG Severe aortic stenosis status post aortic valve replacement Acute systolic heart failure, , ischemic cardiomyopathy is suspected with ejection fraction of 30-35% None STEMI Acute kidney injury, suspected secondary to diuresis. On the top of his chronic kidney disease stage III Hypotension requiring pressors postoperatively Postoperative anemia requiring 1 unit of blood transfusion Sore throat, improved, coronavirus is negative Hyponatremia Diabetes mellitus, With hyperglycemia upon admission . Hemoglobin A1c is 8.6% Hypertension Hyperlipidemia Plan: this is a pleasant 75 years old male who presents with possible acute CHF and high troponin. Cardiothoracic surgery been consulted for CABG on 07/22 and aortic fall for placement on the same day Continue with pressors and monitor blood pressure Continue with aspirin and Plavix Keep monitoring glucose while keeping the patient on insulin Hold antihypertensive and metformin. Pulmonary/critical care consult Cardiology and nephrology team on the case Cardiology cardiology team recommend patient will need AICD open discharge Monitor hemoglobin Labs and medication were reviewed.. Continue same treatment. Continue with symptomatic treatment. Resume home medication. Monitor lytes and vitals. DVT and GI prophylaxis. Further recommendations depends on the clinical course of the patient DVT prophylaxis: Subcutaneous heparin GI Prophylaxis: Pepcid Prognosis is guarded
[2021-07-25 00:02] LABS: Glucose,Whole Blood 131 mg/dL (75-99)
[2021-07-25] MEDS: HEPARIN SODIUM,PORCINE/PF 5,000 UNIT/0.5 ML SYRINGE SQ SCH (00:12)
[2021-07-25] MEDS: NOREPINEPHRINE 4 MG in SODIUM CHLORIDE 0.9% 250 ML IV SCH ×2 (01:39→14:53)
[2021-07-25 01:48] LABS: Glucose,Whole Blood 109 mg/dL (75-99)
[2021-07-25] MEDS: HYDROcodone/APAP 5-325MG 1 EACH TAB PO PRN (02:49)
[2021-07-25 02:56] LABS: Glucose,Whole Blood 119 mg/dL (75-99)
[2021-07-25 04:18] LABS: Glucose,Whole Blood 124 mg/dL (75-99)
[2021-07-25 04:32] LABS: Basophils % (A) 0 %; Eosinophils % (A) 0 %; HCT 26.6 % (39.0-53.0); HGB 8.8 gm/dL (13.0-17.5); Lymphocytes # (A) 0.7 k/uL (1.0-4.8); Lymphocytes % (A) 8 %; MCH 32.3 pg (25.0-35.0); MCHC 33.1 g/dL (31.0-37.0); MCV 97.6 fL (80.0-100.0); Mean Platelet Volume 11.2; Monocytes # (A) 0.6 k/uL (0-1.0); Monocytes % (A) 7 %; Neutrophils # (A) 6.9 k/uL (1.3-7.7); Neutrophils % (A) 82 %; Platelet Count 64 k/uL (150-450); RBC 2.72 m/uL (4.30-5.90); RDW 14.7 % (11.5-15.5); WBC 8.3 k/uL (3.8-10.6)
[2021-07-25 04:44] LABS: Albumin 2.9 g/dL (3.5-5.0); Magnesium 2.2 mg/dL (1.6-2.3); Potassium 4.8 mmol/L (3.5-5.1); Total Bilirubin 1.2 mg/dL (0.2-1.3); Total Protein 4.8 g/dL (6.3-8.2)
[2021-07-25] MEDS ORDERED: SODIUM CHLORIDE 0.9% 3,000 ML IV ONE (04:57)
[2021-07-25] MEDS: SODIUM CHLORIDE 0.9% 1,000 ML IV SCH (05:13)
[2021-07-25 05:17] LABS: Glucose,Whole Blood 121 mg/dL (75-99)
[2021-07-25] MEDS: PANTOPRAZOLE 40 MG TABLET PO SCH (06:46)
[2021-07-25 06:56] LABS: Glucose,Whole Blood 117 mg/dL (75-99)
[2021-07-25] MEDS: AMIODARONE 450 MG in DEXTROSE 5% IN WATER 250 ML IV SCH ×4 (06:57→08:33)
[2021-07-25] MEDS: IPRATROPIUM-ALBUTEROL 3 ML NEB INHALATION SCH ×4 (07:16→19:24)
--- NOTE | 2021-07-25 07:19 | XR ---
EXAMINATION TYPE: XR chest 1V portable DATE OF EXAM: 07/25/2021 CLINICAL HISTORY: Difficulty breathing progress study. Postoperative CABG. TECHNIQUE: Single AP portable semiupright view of the chest is obtained. COMPARISON: Chest x-ray from one day earlier and older studies. FINDINGS: Stable right internal jugular Dudley-Adalberto catheter. Stable left basilar chest tube. Interval removal of mediastinal drainage catheter. Overlying sternal wires and mediastinal clips along with t he left atrial appendage clip are all redemonstrated. Metallic aortic valve and epicardial pacemaker wires are redemonstrated. Cardiomegaly with bibasilar opacities and small left pleural effusion without visualized pneumothorax is redemonstrated. Osseous structures are intact. IMPRESSION: Interval removal of mediastinal drainage catheter. Persistent cardiomegaly with left grea ter than right bibasilar infiltrates and/or atelectasis and small left pleural effusion redemonstrate d. No significant change from 1 day earlier.
[2021-07-25 07:24] LABS: ABG Base Excess -3.4 mmol/L; ABG HCO3 22 mmol/L (21-25); ABG Oxygen Saturation 36.7 % (94-97); ABG PCO2 36 mmHg (35-45); ABG PH 7.38 (7.35-7.45); ABG TCO2 23 mmol/L (19-24)
[2021-07-25 07:28] LABS: ABG PO2 24 mmHg (83-108); Allen Test Performed? no
[2021-07-25 07:49] LABS: ABG Base Excess -4.6 mmol/L; ABG HCO3 20 mmol/L (21-25); ABG Oxygen Saturation 96.2 % (94-97); ABG PCO2 30 mmHg (35-45); ABG PH 7.43 (7.35-7.45); ABG PO2 75 mmHg (83-108); ABG TCO2 21 mmol/L (19-24); Allen Test Performed? Yes
[2021-07-25] MEDS ORDERED: CALCIUM GLUCONATE 1 GM in SODIUM CHLORIDE 0.9% 100 ML IVPB ONE (08:01)
[2021-07-25 08:07] LABS: Glucose,Whole Blood 115 mg/dL (75-99)
[2021-07-25] MEDS: SODIUM CHLORIDE 0.9% 50 ML with VASOPRESSIN 20 UNIT IVPB SCH ×4 (08:30→23:00)
[2021-07-25] MEDS: CLOPIDOGREL 75 MG TAB PO SCH (08:48)
[2021-07-25] MEDS: ASPIRIN 81 MG PO SCH (08:48)
[2021-07-25] MEDS ORDERED: EPINEPHrine 4 MG in DEXTROSE 5% IN WATER 250 ML IV SCH ×2 (09:15)
--- NOTE | 2021-07-25 10:00 | ECHOF ---
Referral Reason:assess LV function MEASUREMENTS -------- HEIGHT: 180.3 cm WEIGHT: 99.3 kg BP: 95/52 RVIDd: 2.8 cm (< 3.3) IVSd: 1.2 cm (0.6 - 1.1) LVIDd: 5.6 cm (3.9 - 5.3) LVPWd: 1.1 cm (0.6 - 1.1) IVSs: 1.6 cm LVIDs: 4.9 cm LVPWs: 1.7 cm LA Diam: 4.1 cm (2.7 - 3.8) Ao Diam: 2.4 cm (2.0 - 3.7) AV Cusp: 1.8 cm (1.5 - 2.6) MV EXCURSION: 15.271 mm (> 18.000) MV EF SLOPE: 59 mm/s (70 - 150) EPSS: 1.2 cm MV E Vipul: 1.20 m/s MV DecT: 157 ms MV A Vipul: 0.77 m/s MV E/A Ratio: 1.57 AV maxP.86 mmHg AV meanP.78 mmHg RAP: 5.00 mmHg RVSP: 30.70 mmHg FINDINGS -------- This was a technically difficult study with suboptimal views. The left ventricular size is normal. There is borderline concentric left ventricular hypertrophy. Overall left ventricular systolic function is severely impaired with, an EF between 25 - 30 %. The right ventricle is normal in size. The left atrium is mildly dilated. The right atrium is normal in size. Peak/mean gradient across the Aortic Valve is 17.86mmHg / 9.78mmHg. Normally functioning bioprosthe tic valve. The mitral valve leaflets are mildly thickened. Mild mitral annular calcification present. Mild tricuspid regurgitation present. Unable to estimate RVSP due to inadequate TR jet spectral dop pler profile. The pulmonic valve was not well visualized. The aortic root size is normal. IVC Not well visulized. There is a moderate pericardial effusion located near the left ventricle. CONCLUSIONS -------- 1. This was a technically difficult study with suboptimal views. 2. The left ventricular size is normal. 3. There is borderline concentric left ventricular hypertrophy. 4. Overall left ventricular systolic function is severely impaired with, an EF between 25 - 30 %. 5. The left atrium is mildly dilated. 6. Peak/mean gradient across the Aortic Valve is 17.86mmHg / 9.78mmHg. 7. Normally functioning bioprosthetic valve. 8. The mitral valve leaflets are mildly thickened. 9. Mild mitral annular calcification present. 10. Mild tricuspid regurgitation present. 11. There is a moderate pericardial effusion located near the left ventricle. HOLISTIC NUTRITIONIST: Yennifer Alanis RDCS
--- NOTE | 2021-07-25 10:03 | P.PN ---
Subjective Patient is seen in follow-up for acute kidney injury on chronic kidney disease. Renal function stable. Patient is on Levophed and vasopressin. Epinephrine has also been ordered. He is also on amiodarone drip as well as Primacor drip. Sitting up in chair. Feels weak. Scheduled to receive 2 units of blood today. Urine output 20-25 mL an hour. Vital signs are stable. HEENT: On nasal cannula. LUNGS: Breath sounds decreased. Chest tubes noted. HEART: Rate and Rhythm are regular. ABDOMEN: Soft, no distention. EXTREMITITES: 1+ edema. Objective - Vital Signs Vital signs: Vital Signs Temp 99.3 F 07/24/21 16:00 Pulse 89 07/25/21 08:15 Resp 27 H 07/25/21 08:15 BP 82/58 07/25/21 07:15 Pulse Ox 97 07/25/21 08:15 Intake & Output 07/24/21 07/25/21 07/25/21 18:59 06:59 18:59 Intake Total 966.919 8987.776 112.615 Output Total 645 480 Balance 298.442 522.776 112.615 Weight 99.4 kg Intake: IV 636.84 386 CARDIAC OUTPUT 0.9 Sodium 90 93 Chloride Milrinone-D5w Pmx 20 mg 9.18 In Dextrose/Water 1 100ml .bag @ Per Protocol IV . Q0M [facility] Rx#:[id number] PRESSURE BAG 0.9 Sodium 84 33 Chloride Sodium Chloride 0.9% 1, 330 260 000 ml @ 20 mls/hr IV . Q24H [facility] Rx#:[id number] Sodium Chloride 0.9% 50 9.0 ml @ 0.03 UNITS/MIN 4.59 mls/hr IVPB .Q11H7M [facility] with Vasopressin 20 unit Rx#:[id number] Sodium Chloride 0.9% 50 40.95 ml @ 0.03 UNITS/MIN 4.59 mls/hr IVPB .Q11H7M [facility] with Vasopressin 20 unit Rx#:[id number] milrinone 73.71 Intake, IV Titration 256.602 616.776 112.615 Amount Amiodarone 450 mg In 238.338 26.667 Dextrose 5% in Water 250 ml @ 0.5 MG/MIN 16.667 mls/hr IV .Q15H [facility] Rx#: [id number] Insulin Regular 100 unit 54.145 23.836 24.467 In Sodium Chloride 0.9% 100 ml @ Per Protocol IV .Q0M [facility] Rx#:[id number] Milrinone-D5w Pmx 20 mg 100 In Dextrose/Water 1 100ml .bag @ Per Protocol IV . Q0M [facility] Rx#:[id number] Norepinephrine 4 mg In 202.457 254.602 61.481 Sodium Chloride 0.9% 250 ml @ 0.02 MCG/KG/MIN 6. 934 mls/hr IV .Q24H [facility] Rx#:[id number] Oral 50 Output: Chest Tube Drainage 390 240 Chest Tube Left Lateral 210 110 Chest Chest Tube Mediastinal 50 Chest Tube Right Lateral 130 130 Chest Drainage 40 Left Calf 40 Urine 215 240 Other: Voiding Method Indwelling Catheter Indwelling Catheter ABP, PAP, CO, CI - Last Documented Arterial Blood Pressure 132/53 Pulmonary Artery Pressure 43/17 Cardiac Output 3 Cardiac Index 1.4 - Labs CBC & Chem 7: 07/25/21 04:20 07/25/21 04:20 Labs: Abnormal Lab Results - Last 24 Hours (Table) 07/21/21 07/24/21 07/24/21 Range/Units 08:22 04:39 10:28 RBC (4.30-5.90) m/uL Hgb (13.0-17.5) gm/dL Hct (39.0-53.0) % Plt Count (150-450) k/uL Lymphocytes # (1.0-4.8) k/uL ABG pCO2 (35-45) mmHg ABG pO2 (83-108) mmHg ABG HCO3 (21-25) mmol/L ABG O2 Saturation (94-97) % ABG Lactic Acid (0.5-1.6) mmol/L VBG HCO3 (24-28) mmol/L Sodium (137-145) mmol/L Chloride (98-107) mmol/L Carbon Dioxide (22-30) mmol/L BUN (9-20) mg/dL Creatinine (0.66-1.25) mg/dL Glucose (74-99) mg/dL POC Glucose (mg/dL) 169 H (75-99) mg/dL Calcium (8.4-10.2) mg/dL Iron 23 L (65-175) ug/dL TIBC 162 L (228-460) ug/dL % Saturation 14.04 L (15.00-50.00) Transferrin 116.0 L (204.0-354.0) mg/dL AST (17-59) U/L ALT (4-49) U/L Total Protein (6.3-8.2) g/dL Albumin (3.5-5.0) g/dL Crossmatch See Detail 07/24/21 07/24/21 07/24/21 Range/Units 12:07 13:35 15:38 RBC (4.30-5.90) m/uL Hgb (13.0-17.5) gm/dL Hct (39.0-53.0) % Plt Count (150-450) k/uL Lymphocytes # (1.0-4.8) k/uL ABG pCO2 (35-45) mmHg ABG pO2 (83-108) mmHg ABG HCO3 (21-25) mmol/L ABG O2 Saturation (94-97) % ABG Lactic Acid (0.5-1.6) mmol/L VBG HCO3 21 L (24-28) mmol/L Sodium (137-145) mmol/L Chloride (98-107) mmol/L Carbon Dioxide (22-30) mmol/L BUN (9-20) mg/dL Creatinine (0.66-1.25) mg/dL Glucose (74-99) mg/dL POC Glucose (mg/dL) 156 H 182 H (75-99) mg/dL Calcium (8.4-10.2) mg/dL Iron (65-175) ug/dL TIBC (228-460) ug/dL % Saturation (15.00-50.00) Transferrin (204.0-354.0) mg/dL AST (17-59) U/L ALT (4-49) U/L Total Protein (6.3-8.2) g/dL Albumin (3.5-5.0) g/dL Crossmatch 07/24/21 07/24/21 07/24/21 Range/Units 15:48 18:24 19:06 RBC (4.30-5.90) m/uL Hgb (13.0-17.5) gm/dL Hct (39.0-53.0) % Plt Count (150-450) k/uL Lymphocytes # (1.0-4.8) k/uL ABG pCO2 (35-45) mmHg ABG pO2 (83-108) mmHg ABG HCO3 (21-25) mmol/L ABG O2 Saturation (94-97) % ABG Lactic Acid (0.5-1.6) mmol/L VBG HCO3 (24-28) mmol/L Sodium (137-145) mmol/L Chloride (98-107) mmol/L Carbon Dioxide (22-30) mmol/L BUN (9-20) mg/dL Creatinine (0.66-1.25) mg/dL Glucose (74-99) mg/dL POC Glucose (mg/dL) 182 H 109 H 102 H (75-99) mg/dL Calcium (8.4-10.2) mg/dL Iron (65-175) ug/dL TIBC (228-460) ug/dL % Saturation (15.00-50.00) Transferrin (204.0-354.0) mg/dL AST (17-59) U/L ALT (4-49) U/L Total Protein (6.3-8.2) g/dL Albumin (3.5-5.0) g/dL Crossmatch 07/24/21 07/24/21 07/24/21 Range/Units 19:13 19:53 19:55 RBC (4.30-5.90) m/uL Hgb (13.0-17.5) gm/dL Hct (39.0-53.0) % Plt Count (150-450) k/uL Lymphocytes # (1.0-4.8) k/uL ABG pCO2 (35-45) mmHg ABG pO2 21 L* (83-108) mmHg ABG HCO3 (21-25) mmol/L ABG O2 Saturation 31.0 L (94-97) % ABG Lactic Acid 1.8 H (0.5-1.6) mmol/L VBG HCO3 (24-28) mmol/L Sodium (137-145) mmol/L Chloride (98-107) mmol/L Carbon Dioxide (22-30) mmol/L BUN (9-20) mg/dL Creatinine (0.66-1.25) mg/dL Glucose (74-99) mg/dL POC Glucose (mg/dL) 103 H (75-99) mg/dL Calcium (8.4-10.2) mg/dL Iron (65-175) ug/dL TIBC (228-460) ug/dL % Saturation (15.00-50.00) Transferrin (204.0-354.0) mg/dL AST (17-59) U/L ALT (4-49) U/L Total Protein (6.3-8.2) g/dL Albumin (3.5-5.0) g/dL Crossmatch 07/24/21 07/24/21 07/24/21 Range/Units 21:08 21:49 22:48 RBC (4.30-5.90) m/uL Hgb (13.0-17.5) gm/dL Hct (39.0-53.0) % Plt Count (150-450) k/uL Lymphocytes # (1.0-4.8) k/uL ABG pCO2 (35-45) mmHg ABG pO2 (83-108) mmHg ABG HCO3 (21-25) mmol/L ABG O2 Saturation (94-97) % ABG Lactic Acid (0.5-1.6) mmol/L VBG HCO3 (24-28) mmol/L Sodium (137-145) mmol/L Chloride (98-107) mmol/L Carbon Dioxide (22-30) mmol/L BUN (9-20) mg/dL Creatinine (0.66-1.25) mg/dL Glucose (74-99) mg/dL POC Glucose (mg/dL) 111 H 134 H 133 H (75-99) mg/dL Calcium (8.4-10.2) mg/dL Iron (65-175) ug/dL TIBC (228-460) ug/dL % Saturation (15.00-50.00) Transferrin (204.0-354.0) mg/dL AST (17-59) U/L ALT (4-49) U/L Total Protein (6.3-8.2) g/dL Albumin (3.5-5.0) g/dL Crossmatch 07/25/21 07/25/21 07/25/21 Range/Units 00:02 01:46 02:54 RBC (4.30-5.90) m/uL Hgb (13.0-17.5) gm/dL Hct (39.0-53.0) % Plt Count (150-450) k/uL Lymphocytes # (1.0-4.8) k/uL ABG pCO2 (35-45) mmHg ABG pO2 (83-108) mmHg ABG HCO3 (21-25) mmol/L ABG O2 Saturation (94-97) % ABG Lactic Acid (0.5-1.6) mmol/L VBG HCO3 (24-28) mmol/L Sodium (137-145) mmol/L Chloride (98-107) mmol/L Carbon Dioxide (22-30) mmol/L BUN (9-20) mg/dL Creatinine (0.66-1.25) mg/dL Glucose (74-99) mg/dL POC Glucose (mg/dL) 131 H 109 H 119 H (75-99) mg/dL Calcium (8.4-10.2) mg/dL Iron (65-175) ug/dL TIBC (228-460) ug/dL % Saturation (15.00-50.00) Transferrin (204.0-354.0) mg/dL AST (17-59) U/L ALT (4-49) U/L Total Protein (6.3-8.2) g/dL Albumin (3.5-5.0) g/dL Crossmatch 07/25/21 07/25/21 07/25/21 Range/Units 04:14 04:20 04:20 RBC 2.72 L (4.30-5.90) m/uL Hgb 8.8 L (13.0-17.5) gm/dL Hct 26.6 L (39.0-53.0) % Plt Count 64 L (150-450) k/uL Lymphocytes # 0.7 L (1.0-4.8) k/uL ABG pCO2 (35-45) mmHg ABG pO2 (83-108) mmHg ABG HCO3 (21-25) mmol/L ABG O2 Saturation (94-97) % ABG Lactic Acid (0.5-1.6) mmol/L VBG HCO3 (24-28) mmol/L Sodium 136 L (137-145) mmol/L Chloride 110 H (98-107) mmol/L Carbon Dioxide 18 L (22-30) mmol/L BUN 37 H (9-20) mg/dL Creatinine 1.64 H (0.66-1.25) mg/dL Glucose 116 H (74-99) mg/dL POC Glucose (mg/dL) 124 H (75-99) mg/dL Calcium 8.0 L (8.4-10.2) mg/dL Iron (65-175) ug/dL TIBC (228-460) ug/dL % Saturation (15.00-50.00) Transferrin (204.0-354.0) mg/dL AST 840 H (17-59) U/L ALT 570 H (4-49) U/L Total Protein 4.8 L (6.3-8.2) g/dL Albumin 2.9 L (3.5-5.0) g/dL Crossmatch 07/25/21 07/25/21 07/25/21 Range/Units 05:15 06:50 07:23 RBC (4.30-5.90) m/uL Hgb (13.0-17.5) gm/dL Hct (39.0-53.0) % Plt Count (150-450) k/uL Lymphocytes # (1.0-4.8) k/uL ABG pCO2 (35-45) mmHg ABG pO2 24 L* (83-108) mmHg ABG HCO3 (21-25) mmol/L ABG O2 Saturation 36.7 L (94-97) % ABG Lactic Acid (0.5-1.6) mmol/L VBG HCO3 (24-28) mmol/L Sodium (137-145) mmol/L Chloride (98-107) mmol/L Carbon Dioxide (22-30) mmol/L BUN (9-20) mg/dL Creatinine (0.66-1.25) mg/dL Glucose (74-99) mg/dL POC Glucose (mg/dL) 121 H 117 H (75-99) mg/dL Calcium (8.4-10.2) mg/dL Iron (65-175) ug/dL TIBC (228-460) ug/dL % Saturation (15.00-50.00) Transferrin (204.0-354.0) mg/dL AST (17-59) U/L ALT (4-49) U/L Total Protein (6.3-8.2) g/dL Albumin (3.5-5.0) g/dL Crossmatch 07/25/21 07/25/21 07/25/21 Range/Units 07:26 07:47 08:00 RBC (4.30-5.90) m/uL Hgb (13.0-17.5) gm/dL Hct (39.0-53.0) % Plt Count (150-450) k/uL Lymphocytes # (1.0-4.8) k/uL ABG pCO2 30 L (35-45) mmHg ABG pO2 75 L (83-108) mmHg ABG HCO3 20 L (21-25) mmol/L ABG O2 Saturation (94-97) % ABG Lactic Acid 2.1 H (0.5-1.6) mmol/L VBG HCO3 (24-28) mmol/L Sodium (137-145) mmol/L Chloride (98-107) mmol/L Carbon Dioxide (22-30) mmol/L BUN (9-20) mg/dL Creatinine (0.66-1.25) mg/dL Glucose (74-99) mg/dL POC Glucose (mg/dL) (75-99) mg/dL Calcium (8.4-10.2) mg/dL Iron (65-175) ug/dL TIBC (228-460) ug/dL % Saturation (15.00-50.00) Transferrin (204.0-354.0) mg/dL AST (17-59) U/L ALT (4-49) U/L Total Protein (6.3-8.2) g/dL Albumin (3.5-5.0) g/dL Crossmatch See Detail 07/25/21 Range/Units 08:05 RBC (4.30-5.90) m/uL Hgb (13.0-17.5) gm/dL Hct (39.0-53.0) % Plt Count (150-450) k/uL Lymphocytes # (1.0-4.8) k/uL ABG pCO2 (35-45) mmHg ABG pO2 (83-108) mmHg ABG HCO3 (21-25) mmol/L ABG O2 Saturation (94-97) % ABG Lactic Acid (0.5-1.6) mmol/L VBG HCO3 (24-28) mmol/L Sodium (137-145) mmol/L Chloride (98-107) mmol/L Carbon Dioxide (22-30) mmol/L BUN (9-20) mg/dL Creatinine (0.66-1.25) mg/dL Glucose (74-99) mg/dL POC Glucose (mg/dL) 115 H (75-99) mg/dL Calcium (8.4-10.2) mg/dL Iron (65-175) ug/dL TIBC (228-460) ug/dL % Saturation (15.00-50.00) Transferrin (204.0-354.0) mg/dL AST (17-59) U/L ALT (4-49) U/L Total Protein (6.3-8.2) g/dL Albumin (3.5-5.0) g/dL Crossmatch Assessment and Plan Plan: Assessment: 1. Acute kidney injury secondary to ATN status post CABG. Creatinine stable at 1.64 today. 2. Chronic kidney disease stage III a baseline creatinine in the range of 1-1.2 secondary to nephrosclerosis. UA benign. No evidence of hydronephrosis noted on kidney ultrasound. 3. A. fib with RVR maintained on amiodarone drip. 4. Acute blood loss anemia post CABG. 5. Coronary artery disease status post CABG on 07/22/2021. 6. Metabolic acidosis secondary to acute kidney injury. Partially compensatory for respiratory alkalosis. 7. Volume overload. Plan: Patient scheduled to receive 2 units of blood today. Lasix 40 mg IV once in between blood transmissions. Monitor bicarb. Avoid nephrotoxins. Continue to monitor renal function and urine output.
[2021-07-25] MEDS ORDERED: FUROSEMIDE 10 MG/ML 4 ML VIAL IV STA (10:10)
--- NOTE | 2021-07-25 11:10 | P.PN ---
Subjective Progress Note Date: 07/25/21 Patient is a 75-year-old male postop day 3 of a triple vessel coronary artery bypass grafting and bioprosthesis aortic valve replacement. He is known history of coronary artery disease, ischemic cardiomyopathy, congestive heart failure, hyperlipidemia, hypertension, diabetes. Patient was seen resting in the chair with no signs of acute distress. He he reports surgery pain, and denies chest pain, palpitations, dizziness, dyspnea. mild lower leg edema. Patient had his mediastinal chest tubes pulled yesterday and there is concern for pericardial effusion and possible cardiac tamponade. Echocardiogram shows severely impaired left ventricular systolic function with an ejection fraction of 25-30%, normal functioning bioprosthetic aortic valve and moderate pericardial effusion located near the left ventricle. Echo was negative for cardiac tamponade. Patient remains on vasopressor, levo, IV amiodarone, and Milrinone. Patient is atrial fibrillation and paced on the monitor. Patient is not on any anticoagulation due to thrombocytopenia. Patient's blood pressure is 118/47, heart rate 89, res pirations 14, 94% on 2 L nasal cannula, afebrile. Patient continues on aspirin 81 mg daily, Plavix 75 mg daily midodrine 10 mg 3 times a day, IV amiodarone Milrinone, levo, vasopressin. DIAGNOSTICS: Telemetry shows patient in atrial fibrillation with a controlled ventricle response and atrial paced Echocardiogram shows severely impaired left ventricular systolic function with an ejection fraction of 25-30%, normal functioning prosthetic valve and moderate pericardial effusion located near the left ventricle, negative for cardiac tamponade. Chest x-ray showed persistent cardiomegaly with left greater than the right basilar infiltrates and/or atelectasis and small left pleural effusion and changes from prior exam Labs reviewedhemoglobin 8.8 platelet 64, sodium 136, BUNs 37, creatinine 1.64, magnesium 2.2, Objective - Vital Signs Vital signs: Vital Signs Temp 98.8 F 07/25/21 10:07 Pulse 89 07/25/21 10:07 Resp 14 07/25/21 10:07 BP 118/47 07/25/21 10:07 Pulse Ox 94 L 07/25/21 10:07 Intake & Output 07/24/21 07/25/21 07/25/21 18:59 06:59 18:59 Intake Total 341.406 2902.776 112.615 Output Total 645 480 Balance 298.442 522.776 112.615 Weight 99.4 kg Intake: IV 636.84 386 CARDIAC OUTPUT 0.9 Sodium 90 93 Chloride Milrinone-D5w Pmx 20 mg 9.18 In Dextrose/Water 1 100ml .bag @ Per Protocol IV . Q0M [facility] Rx#:[id number] PRESSURE BAG 0.9 Sodium 84 33 Chloride Sodium Chloride 0.9% 1, 330 260 000 ml @ 20 mls/hr IV . Q24H [facility] Rx#:[id number] Sodium Chloride 0.9% 50 9.0 ml @ 0.03 UNITS/MIN 4.59 mls/hr IVPB .Q11H7M [facility] with Vasopressin 20 unit Rx#:[id number] Sodium Chloride 0.9% 50 40.95 ml @ 0.03 UNITS/MIN 4.59 mls/hr IVPB .Q11H7M [facility] with Vasopressin 20 unit Rx#:[id number] milrinone 73.71 Intake, IV Titration 256.602 616.776 112.615 Amount Amiodarone 450 mg In 238.338 26.667 Dextrose 5% in Water 250 ml @ 0.5 MG/MIN 16.667 mls/hr IV .Q15H [facility] Rx#: [id number] Insulin Regular 100 unit 54.145 23.836 24.467 In Sodium Chloride 0.9% 100 ml @ Per Protocol IV .Q0M [facility] Rx#:[id number] Milrinone-D5w Pmx 20 mg 100 In Dextrose/Water 1 100ml .bag @ Per Protocol IV . Q0M [facility] Rx#:[id number] Norepinephrine 4 mg In 202.457 254.602 61.481 Sodium Chloride 0.9% 250 ml @ 0.02 MCG/KG/MIN 6. 934 mls/hr IV .Q24H [facility] Rx#:[id number] Oral 50 Blood Product 0 Rc As-1 Unit 0 [id number] Output: Chest Tube Drainage 390 240 Chest Tube Left Lateral 210 110 Chest Chest Tube Mediastinal 50 Chest Tube Right Lateral 130 130 Chest Drainage 40 Left Calf 40 Urine 215 240 Other: Voiding Method Indwelling Catheter Indwelling Catheter ABP, PAP, CO, CI - Last Documented Arterial Blood Pressure 132/53 Pulmonary Artery Pressure 43/17 Cardiac Output 3 Cardiac Index 1.4 - Exam PHYSICAL EXAM: VITAL SIGNS: Reviewed. GENERAL: Well-developed in no acute distress. HEENT: Head is normocephalic. Pupils are equal, round. Sclerae anicteric. Mucous membranes of the mouth are moist. NECK: Supple. No JVD or thyromegaly RESPIRATORY: Respirations even and unlabored. Lungs diminished to auscultation bilaterally. On 2 L nasal cannula CARDIO: irregular rate and rhythm. S1 and S2 heard. No murmur or gallops. EXTREMITIES: Normal range of motion. No clubbing or cyanosis. Peripheral pulses intact. mild bilateral lower extremity edema NEURO: Orientated to person, time, mood is appropriate - Labs CBC & Chem 7: 07/25/21 04:20 07/25/21 04:20 Labs: Abnormal Lab Results - Last 24 Hours (Table) 07/21/21 07/24/21 07/24/21 Range/Units 08:22 04:39 12:07 RBC (4.30-5.90) m/uL Hgb (13.0-17.5) gm/dL Hct (39.0-53.0) % Plt Count (150-450) k/uL Lymphocytes # (1.0-4.8) k/uL ABG pCO2 (35-45) mmHg ABG pO2 (83-108) mmHg ABG HCO3 (21-25) mmol/L ABG O2 Saturation (94-97) % ABG Lactic Acid (0.5-1.6) mmol/L VBG HCO3 (24-28) mmol/L Sodium (137-145) mmol/L Chloride (98-107) mmol/L Carbon Dioxide (22-30) mmol/L BUN (9-20) mg/dL Creatinine (0.66-1.25) mg/dL Glucose (74-99) mg/dL POC Glucose (mg/dL) 156 H (75-99) mg/dL Calcium (8.4-10.2) mg/dL Iron 23 L (65-175) ug/dL TIBC 162 L (228-460) ug/dL % Saturation 14.04 L (15.00-50.00) Transferrin 116.0 L (204.0-354.0) mg/dL AST (17-59) U/L ALT (4-49) U/L Total Protein (6.3-8.2) g/dL Albumin (3.5-5.0) g/dL Crossmatch See Detail 07/24/21 07/24/21 07/24/21 Range/Units 13:35 15:38 15:48 RBC (4.30-5.90) m/uL Hgb (13.0-17.5) gm/dL Hct (39.0-53.0) % Plt Count (150-450) k/uL Lymphocytes # (1.0-4.8) k/uL ABG pCO2 (35-45) mmHg ABG pO2 (83-108) mmHg ABG HCO3 (21-25) mmol/L ABG O2 Saturation (94-97) % ABG Lactic Acid (0.5-1.6) mmol/L VBG HCO3 21 L (24-28) mmol/L Sodium (137-145) mmol/L Chloride (98-107) mmol/L Carbon Dioxide (22-30) mmol/L BUN (9-20) mg/dL Creatinine (0.66-1.25) mg/dL Glucose (74-99) mg/dL POC Glucose (mg/dL) 182 H 182 H (75-99) mg/dL Calcium (8.4-10.2) mg/dL Iron (65-175) ug/dL TIBC (228-460) ug/dL % Saturation (15.00-50.00) Transferrin (204.0-354.0) mg/dL AST (17-59) U/L ALT (4-49) U/L Total Protein (6.3-8.2) g/dL Albumin (3.5-5.0) g/dL Crossmatch 07/24/21 07/24/21 07/24/21 Range/Units 18:24 19:06 19:13 RBC (4.30-5.90) m/uL Hgb (13.0-17.5) gm/dL Hct (39.0-53.0) % Plt Count (150-450) k/uL Lymphocytes # (1.0-4.8) k/uL ABG pCO2 (35-45) mmHg ABG pO2 21 L* (83-108) mmHg ABG HCO3 (21-25) mmol/L ABG O2 Saturation 31.0 L (94-97) % ABG Lactic Acid (0.5-1.6) mmol/L VBG HCO3 (24-28) mmol/L Sodium (137-145) mmol/L Chloride (98-107) mmol/L Carbon Dioxide (22-30) mmol/L BUN (9-20) mg/dL Creatinine (0.66-1.25) mg/dL Glucose (74-99) mg/dL POC Glucose (mg/dL) 109 H 102 H (75-99) mg/dL Calcium (8.4-10.2) mg/dL Iron (65-175) ug/dL TIBC (228-460) ug/dL % Saturation (15.00-50.00) Transferrin (204.0-354.0) mg/dL AST (17-59) U/L ALT (4-49) U/L Total Protein (6.3-8.2) g/dL Albumin (3.5-5.0) g/dL Crossmatch 07/24/21 07/24/21 07/24/21 Range/Units 19:53 19:55 21:08 RBC (4.30-5.90) m/uL Hgb (13.0-17.5) gm/dL Hct (39.0-53.0) % Plt Count (150-450) k/uL Lymphocytes # (1.0-4.8) k/uL ABG pCO2 (35-45) mmHg ABG pO2 (83-108) mmHg ABG HCO3 (21-25) mmol/L ABG O2 Saturation (94-97) % ABG Lactic Acid 1.8 H (0.5-1.6) mmol/L VBG HCO3 (24-28) mmol/L Sodium (137-145) mmol/L Chloride (98-107) mmol/L Carbon Dioxide (22-30) mmol/L BUN (9-20) mg/dL Creatinine (0.66-1.25) mg/dL Glucose (74-99) mg/dL POC Glucose (mg/dL) 103 H 111 H (75-99) mg/dL Calcium (8.4-10.2) mg/dL Iron (65-175) ug/dL TIBC (228-460) ug/dL % Saturation (15.00-50.00) Transferrin (204.0-354.0) mg/dL AST (17-59) U/L ALT (4-49) U/L Total Protein (6.3-8.2) g/dL Albumin (3.5-5.0) g/dL Crossmatch 07/24/21 07/24/21 07/25/21 Range/Units 21:49 22:48 00:02 RBC (4.30-5.90) m/uL Hgb (13.0-17.5) gm/dL Hct (39.0-53.0) % Plt Count (150-450) k/uL Lymphocytes # (1.0-4.8) k/uL ABG pCO2 (35-45) mmHg ABG pO2 (83-108) mmHg ABG HCO3 (21-25) mmol/L ABG O2 Saturation (94-97) % ABG Lactic Acid (0.5-1.6) mmol/L VBG HCO3 (24-28) mmol/L Sodium (137-145) mmol/L Chloride (98-107) mmol/L Carbon Dioxide (22-30) mmol/L BUN (9-20) mg/dL Creatinine (0.66-1.25) mg/dL Glucose (74-99) mg/dL POC Glucose (mg/dL) 134 H 133 H 131 H (75-99) mg/dL Calcium (8.4-10.2) mg/dL Iron (65-175) ug/dL TIBC (228-460) ug/dL % Saturation (15.00-50.00) Transferrin (204.0-354.0) mg/dL AST (17-59) U/L ALT (4-49) U/L Total Protein (6.3-8.2) g/dL Albumin (3.5-5.0) g/dL Crossmatch 07/25/21 07/25/21 07/25/21 Range/Units 01:46 02:54 04:14 RBC (4.30-5.90) m/uL Hgb (13.0-17.5) gm/dL Hct (39.0-53.0) % Plt Count (150-450) k/uL Lymphocytes # (1.0-4.8) k/uL ABG pCO2 (35-45) mmHg ABG pO2 (83-108) mmHg ABG HCO3 (21-25) mmol/L ABG O2 Saturation (94-97) % ABG Lactic Acid (0.5-1.6) mmol/L VBG HCO3 (24-28) mmol/L Sodium (137-145) mmol/L Chloride (98-107) mmol/L Carbon Dioxide (22-30) mmol/L BUN (9-20) mg/dL Creatinine (0.66-1.25) mg/dL Glucose (74-99) mg/dL POC Glucose (mg/dL) 109 H 119 H 124 H (75-99) mg/dL Calcium (8.4-10.2) mg/dL Iron (65-175) ug/dL TIBC (228-460) ug/dL % Saturation (15.00-50.00) Transferrin (204.0-354.0) mg/dL AST (17-59) U/L ALT (4-49) U/L Total Protein (6.3-8.2) g/dL Albumin (3.5-5.0) g/dL Crossmatch 07/25/21 07/25/21 07/25/21 Range/Units 04:20 04:20 05:15 RBC 2.72 L (4.30-5.90) m/uL Hgb 8.8 L (13.0-17.5) gm/dL Hct 26.6 L (39.0-53.0) % Plt Count 64 L (150-450) k/uL Lymphocytes # 0.7 L (1.0-4.8) k/uL ABG pCO2 (35-45) mmHg ABG pO2 (83-108) mmHg ABG HCO3 (21-25) mmol/L ABG O2 Saturation (94-97) % ABG Lactic Acid (0.5-1.6) mmol/L VBG HCO3 (24-28) mmol/L Sodium 136 L (137-145) mmol/L Chloride 110 H (98-107) mmol/L Carbon Dioxide 18 L (22-30) mmol/L BUN 37 H (9-20) mg/dL Creatinine 1.64 H (0.66-1.25) mg/dL Glucose 116 H (74-99) mg/dL POC Glucose (mg/dL) 121 H (75-99) mg/dL Calcium 8.0 L (8.4-10.2) mg/dL Iron (65-175) ug/dL TIBC (228-460) ug/dL % Saturation (15.00-50.00) Transferrin (204.0-354.0) mg/dL AST 840 H (17-59) U/L ALT 570 H (4-49) U/L Total Protein 4.8 L (6.3-8.2) g/dL Albumin 2.9 L (3.5-5.0) g/dL Crossmatch 07/25/21 07/25/21 07/25/21 Range/Units 06:50 07:23 07:26 RBC (4.30-5.90) m/uL Hgb (13.0-17.5) gm/dL Hct (39.0-53.0) % Plt Count (150-450) k/uL Lymphocytes # (1.0-4.8) k/uL ABG pCO2 (35-45) mmHg ABG pO2 24 L* (83-108) mmHg ABG HCO3 (21-25) mmol/L ABG O2 Saturation 36.7 L (94-97) % ABG Lactic Acid 2.1 H (0.5-1.6) mmol/L VBG HCO3 (24-28) mmol/L Sodium (137-145) mmol/L Chloride (98-107) mmol/L Carbon Dioxide (22-30) mmol/L BUN (9-20) mg/dL Creatinine (0.66-1.25) mg/dL Glucose (74-99) mg/dL POC Glucose (mg/dL) 117 H (75-99) mg/dL Calcium (8.4-10.2) mg/dL Iron (65-175) ug/dL TIBC (228-460) ug/dL % Saturation (15.00-50.00) Transferrin (204.0-354.0) mg/dL AST (17-59) U/L ALT (4-49) U/L Total Protein (6.3-8.2) g/dL Albumin (3.5-5.0) g/dL Crossmatch 07/25/21 07/25/21 07/25/21 Range/Units 07:47 08:00 08:05 RBC (4.30-5.90) m/uL Hgb (13.0-17.5) gm/dL Hct (39.0-53.0) % Plt Count (150-450) k/uL Lymphocytes # (1.0-4.8) k/uL ABG pCO2 30 L (35-45) mmHg ABG pO2 75 L (83-108) mmHg ABG HCO3 20 L (21-25) mmol/L ABG O2 Saturation (94-97) % ABG Lactic Acid (0.5-1.6) mmol/L VBG HCO3 (24-28) mmol/L Sodium (137-145) mmol/L Chloride (98-107) mmol/L Carbon Dioxide (22-30) mmol/L BUN (9-20) mg/dL Creatinine (0.66-1.25) mg/dL Glucose (74-99) mg/dL POC Glucose (mg/dL) 115 H (75-99) mg/dL Calcium (8.4-10.2) mg/dL Iron (65-175) ug/dL TIBC (228-460) ug/dL % Saturation (15.00-50.00) Transferrin (204.0-354.0) mg/dL AST (17-59) U/L ALT (4-49) U/L Total Protein (6.3-8.2) g/dL Albumin (3.5-5.0) g/dL Crossmatch See Detail Assessment and Plan Assessment: Multivessel coronary artery disease status post three-vessel CABG Aortic valve insufficiency status post aortic valve replacement Pericardial effusion without cardiac tamponade Ischemic cardiomyopathy Congestive heart failure with reduced LV systolic function Hypotension requiring vasopressors Atrial fibrillation with a controlled ventricular response Thrombocytopenia, anticoagulation held Plan: Continue to titrate pressors as tolerated by blood pressure Continue to monitor thrombocytopenia, will restart anticoagulation when thrombocythemia improves Continue dual antiplatelet therapy Continue with current all cardiac medications Continue with telemetry monitoring Further recommendations based on clinical course. The above impression and plan of care have been discussed and directed by the signing physician. Praveena Dowling, nurse practitioner, acting as scribe for signing physician.
--- NOTE | 2021-07-25 11:23 | P.PN ---
Subjective Progress Note Date: 07/25/21 Principal diagnosis: Triple-vessel coronary artery disease, non-STEMI and admission, moderate aortic valve stenosis, mild to moderate mitral valve regurgitation, acute systolic hea rt failure present on admission, ischemic cardiomyopathy, EF 30-35%, paroxysmal atrial fibrillation preoperatively, first-degree heart block, paroxysmal episodes of second-degree and complete heart block this admission, acute kidney injury, elevated CRP, pro-calcitonin on admission. Previous medical history of hypertension, hyperlipidemia, qrg-iupwxzv-wkefxyymi diabetes, lifetime nonsmoker, family history of heart disease, remains unvaccinated against covid. POD #3 triple-vessel coronary artery bypass grafting using the left internal mammary artery to the left anterior descending coronary artery, a reverse greater saphenous vein graft from the aorta to the second obtuse marginal coronary artery, and a reverse greater saphenous vein graft from the aorta to the third obtuse marginal coronary artery. Aortic valve replacement using a 23 mm pericardial bioprosthetic Inspiris. Bilateral pulmonary vein isolation using bipolar radiofrequency energy from Atricure, exclusion of the left atrial appendage using a 40 mm Atriclip, intraoperative transesophageal echocardiogram, epi-aortic scanning and graft flow measurements using the Medi-Stim system. Endoscopic harvesting of his left greater saphenous vein from the ankle to the groin, and his right greater saphenous vein from just below the knee to his groin. Postoperative acute blood loss anemia, expected given hemodilution and cardi opulmonary bypass. Hypotension, multifactorial, could be secondary to his ejection fraction of 30- 35%. Paroxysmal atrial fibrillation, a known common occurrence after cardiac surgery and expected due to his known preoperative atrial fibrillation. The patient was seen in follow-up today 07/25/2021 at his bedside in the intensive care unit. Currently he is sitting up to the bedside chair, is awake, alert and oriented 3. His mentation continues to improve. Currently he denies any complaints of shortness of breath although was complaining of some surgical type pain to his chest tube insertion sites rating his pain currently 6 out of 10 on the pain scale. Oxygen saturation are 94% on 2 L nasal cannula and he is achieving 750 mL with encouragement on his incentive spirometry. Bedside te lemetry is showing atrial paced rhythm at a heart rate of 84 bpm, underlying rhythm is showing sinus rhythm with first-degree heart block heart rate in the 60s. He remains with his right IJ Cordis and Powell-Adalberto catheter in place with current hemodynamic showing a cardiac output 3.0, cardiac index 1.4, PA pressures 38/18 and CVP 12 mmHg. Hood calculation for cardiac index was 1.81. Norepinephrine drip remained infusing at 0.05 mcg/kg/m, vasopressin at 0.03 units per minute, Primacor drip at 0.4 mcg/kg/m and amiodarone drip infusing per protocol at 0.5 mg/m. Insulin drip is also infusing per protocol and is currently at 4.5 units per hour. Laboratory results this morning show a WBC count 8.3, hemoglobin 8.8, platelets 64, sodium 136, potassium 4.8, CO2 18, BUN 37, creatinine 1.64, magnesium 2.2, venous plasma lactic acid 1.7, AST 840 and ALT 570. Arterial blood gases this morning show a pH of 7.43, pCO2 30, pO2 75, HCO3 20, base excess -4.6, and oxygen saturation 96.2. Right and left pleural chest tubes remain in place to low continuous wall suction -20 cm H2O. No air leaks present. Draining thin serosanguineous drainage. Left pleural chest tube drained 30 mL output in the last 8 hours and 300 mL output in the last 24 hours, right pleural chest tube drained 40 mL output in the last 8 hours and 200 mL output in the last 24 hours. Objective - Vital Signs Vital signs: Vital Signs Temp 98.8 F 07/25/21 10:07 Pulse 89 07/25/21 10:07 Resp 14 07/25/21 10:07 BP 118/47 07/25/21 10:07 Pulse Ox 94 L 07/25/21 10:07 Intake & Output 07/24/21 07/25/21 07/25/21 18:59 06:59 18:59 Intake Total 778.563 5332.776 112.615 Output Total 645 480 Balance 298.442 522.776 112.615 Weight 99.4 kg Intake: IV 636.84 386 CARDIAC OUTPUT 0.9 Sodium 90 93 Chloride Milrinone-D5w Pmx 20 mg 9.18 In Dextrose/Water 1 100ml .bag @ Per Protocol IV . Q0M [facility] Rx#:[id number] PRESSURE BAG 0.9 Sodium 84 33 Chloride Sodium Chloride 0.9% 1, 330 260 000 ml @ 20 mls/hr IV . Q24H [facility] Rx#:[id number] Sodium Chloride 0.9% 50 9.0 ml @ 0.03 UNITS/MIN 4.59 mls/hr IVPB .Q11H7M ONE with Vasopressin 20 unit Rx#:[id number] Sodium Chloride 0.9% 50 40.95 ml @ 0.03 UNITS/MIN 4.59 mls/hr IVPB .Q11H7M [facility] with Vasopressin 20 unit Rx#:[id number] milrinone 73.71 Intake, IV Titration 256.602 616.776 112.615 Amount Amiodarone 450 mg In 238.338 26.667 Dextrose 5% in Water 250 ml @ 0.5 MG/MIN 16.667 mls/hr IV .Q15H [facility] Rx#: [id number] Insulin Regular 100 unit 54.145 23.836 24.467 In Sodium Chloride 0.9% 100 ml @ Per Protocol IV .Q0M [facility] Rx#:[id number] Milrinone-D5w Pmx 20 mg 100 In Dextrose/Water 1 100ml .bag @ Per Protocol IV . Q0M [facility] Rx#:[id number] Norepinephrine 4 mg In 202.457 254.602 61.481 Sodium Chloride 0.9% 250 ml @ 0.02 MCG/KG/MIN 6. 934 mls/hr IV .Q24H [facility] Rx#:[id number] Oral 50 Blood Product 0 Rc As-1 Unit 0 [id number] Output: Chest Tube Drainage 390 240 Chest Tube Left Lateral 210 110 Chest Chest Tube Mediastinal 50 Chest Tube Right Lateral 130 130 Chest Drainage 40 Left Calf 40 Urine 215 240 Other: Voiding Method Indwelling Catheter Indwelling Catheter ABP, PAP, CO, CI - Last Documented Arterial Blood Pressure 132/53 Pulmonary Artery Pressure 43/17 Cardiac Output 3 Cardiac Index 1.4 - Exam CONSTITUTIONAL: Sitting up to the bedside chair in the intensive care unit, cooperative, oriented 3 and is in no apparent acute distress. HEENT: Neck is supple, no JVD, no lymphadenopathy. Right IJ Cordis and Powell- Adalberto catheter in place and functioning. RESPIRATORY: Lungs sounds essentially clear throughout, diminished to his bilateral base with few scattered crackles throughout. Respirations are symmetrical and nonlabored. Currently on 2 L nasal cannula with oxygen saturations 94%. Achieving 750 mL on his incentive spirometry up encouragement. Strong cough. CARDIOVASCULAR: Regular rhythm and rate. S1 and S2 present, negative for S3, gallop or murmur. Sternum is stable. Palpable peripheral pulses bilaterally, +1 edema to his bilateral lower extremities. No calf pain or tenderness noted. Heart hugger in place with patient demonstrating appropriate use. Knee-high YOU hose and sequential compression devices in place to his bilateral lower extremities. GASTROINTESTINAL: Abdomen soft, nontender, slightly distended. Hypoactive bowel sounds present 4 quadrants. Tolerating diet. No guarding or rigidity. GENITOURINARY: Nava present draining clear, yellow urine. Output 180 mL in the last 8 hours. INTEGUMENTARY: Skin is warm and dry with no evidence of clubbing or cyanosis. Midline sternal incision clean dry and well approximated, covered with dry intact dressing. Right and left lower extremity EVH sites well approximated without redness or drainage. NEUROLOGIC: Cranial nerves II through XII intact. No focal deficits. MUSKULOSKELETAL: Able to move all extremities, strength equal bilaterally, generalized weakness. PSYCHIATRIC: Alert and oriented 3. Intact judgment and insight. INVASIVE LINES AND TUBES: Left and right pleural chest tubes present and connected to low continuous wall suction -20 cm H2O, no air leaks present. Left pleural chest tube with 30 mL of thin serosanguineous drainage overnight, 300 mL output in the last 24 hours. Right pleural chest tube with 40 mL output in the last 8 hours and 200 mL output in the last 24 hours. Atrial and ventricular epicardial pacemaker wires present, connected to backup bedside pacemaker generator, AAI rate 84 bpm. Right internal jugular Powell/Cordis, right radial arterial line present. Last CO 3.0, CI 1.4, PA 38/18 and CVP 12 mmHg. - Allied health notes Allied health notes reviewed: nursing - Labs CBC & Chem 7: 07/25/21 04:20 07/25/21 04:20 Labs: Abnormal Lab Results - Last 24 Hours (Table) 07/21/21 07/24/21 07/24/21 Range/Units 08:22 04:39 10:28 RBC (4.30-5.90) m/uL Hgb (13.0-17.5) gm/dL Hct (39.0-53.0) % Plt Count (150-450) k/uL Lymphocytes # (1.0-4.8) k/uL ABG pCO2 (35-45) mmHg ABG pO2 (83-108) mmHg ABG HCO3 (21-25) mmol/L ABG O2 Saturation (94-97) % ABG Lactic Acid (0.5-1.6) mmol/L VBG HCO3 (24-28) mmol/L Sodium (137-145) mmol/L Chloride (98-107) mmol/L Carbon Dioxide (22-30) mmol/L BUN (9-20) mg/dL Creatinine (0.66-1.25) mg/dL Glucose (74-99) mg/dL POC Glucose (mg/dL) 169 H (75-99) mg/dL Calcium (8.4-10.2) mg/dL Iron 23 L (65-175) ug/dL TIBC 162 L (228-460) ug/dL % Saturation 14.04 L (15.00-50.00) Transferrin 116.0 L (204.0-354.0) mg/dL AST (17-59) U/L ALT (4-49) U/L Total Protein (6.3-8.2) g/dL Albumin (3.5-5.0) g/dL Crossmatch See Detail 07/24/21 07/24/21 07/24/21 Range/Units 12:07 13:35 15:38 RBC (4.30-5.90) m/uL Hgb (13.0-17.5) gm/dL Hct (39.0-53.0) % Plt Count (150-450) k/uL Lymphocytes # (1.0-4.8) k/uL ABG pCO2 (35-45) mmHg ABG pO2 (83-108) mmHg ABG HCO3 (21-25) mmol/L ABG O2 Saturation (94-97) % ABG Lactic Acid (0.5-1.6) mmol/L VBG HCO3 21 L (24-28) mmol/L Sodium (137-145) mmol/L Chloride (98-107) mmol/L Carbon Dioxide (22-30) mmol/L BUN (9-20) mg/dL Creatinine (0.66-1.25) mg/dL Glucose (74-99) mg/dL POC Glucose (mg/dL) 156 H 182 H (75-99) mg/dL Calcium (8.4-10.2) mg/dL Iron (65-175) ug/dL TIBC (228-460) ug/dL % Saturation (15.00-50.00) Transferrin (204.0-354.0) mg/dL AST (17-59) U/L ALT (4-49) U/L Total Protein (6.3-8.2) g/dL Albumin (3.5-5.0) g/dL Crossmatch 07/24/21 07/24/21 07/24/21 Range/Units 15:48 18:24 19:06 RBC (4.30-5.90) m/uL Hgb (13.0-17.5) gm/dL Hct (39.0-53.0) % Plt Count (150-450) k/uL Lymphocytes # (1.0-4.8) k/uL ABG pCO2 (35-45) mmHg ABG pO2 (83-108) mmHg ABG HCO3 (21-25) mmol/L ABG O2 Saturation (94-97) % ABG Lactic Acid (0.5-1.6) mmol/L VBG HCO3 (24-28) mmol/L Sodium (137-145) mmol/L Chloride (98-107) mmol/L Carbon Dioxide (22-30) mmol/L BUN (9-20) mg/dL Creatinine (0.66-1.25) mg/dL Glucose (74-99) mg/dL POC Glucose (mg/dL) 182 H 109 H 102 H (75-99) mg/dL Calcium (8.4-10.2) mg/dL Iron (65-175) ug/dL TIBC (228-460) ug/dL % Saturation (15.00-50.00) Transferrin (204.0-354.0) mg/dL AST (17-59) U/L ALT (4-49) U/L Total Protein (6.3-8.2) g/dL Albumin (3.5-5.0) g/dL Crossmatch 07/24/21 07/24/21 07/24/21 Range/Units 19:13 19:53 19:55 RBC (4.30-5.90) m/uL Hgb (13.0-17.5) gm/dL Hct (39.0-53.0) % Plt Count (150-450) k/uL Lymphocytes # (1.0-4.8) k/uL ABG pCO2 (35-45) mmHg ABG pO2 21 L* (83-108) mmHg ABG HCO3 (21-25) mmol/L ABG O2 Saturation 31.0 L (94-97) % ABG Lactic Acid 1.8 H (0.5-1.6) mmol/L VBG HCO3 (24-28) mmol/L Sodium (137-145) mmol/L Chloride (98-107) mmol/L Carbon Dioxide (22-30) mmol/L BUN (9-20) mg/dL Creatinine (0.66-1.25) mg/dL Glucose (74-99) mg/dL POC Glucose (mg/dL) 103 H (75-99) mg/dL Calcium (8.4-10.2) mg/dL Iron (65-175) ug/dL TIBC (228-460) ug/dL % Saturation (15.00-50.00) Transferrin (204.0-354.0) mg/dL AST (17-59) U/L ALT (4-49) U/L Total Protein (6.3-8.2) g/dL Albumin (3.5-5.0) g/dL Crossmatch 07/24/21 07/24/21 07/24/21 Range/Units 21:08 21:49 22:48 RBC (4.30-5.90) m/uL Hgb (13.0-17.5) gm/dL Hct (39.0-53.0) % Plt Count (150-450) k/uL Lymphocytes # (1.0-4.8) k/uL ABG pCO2 (35-45) mmHg ABG pO2 (83-108) mmHg ABG HCO3 (21-25) mmol/L ABG O2 Saturation (94-97) % ABG Lactic Acid (0.5-1.6) mmol/L VBG HCO3 (24-28) mmol/L Sodium (137-145) mmol/L Chloride (98-107) mmol/L Carbon Dioxide (22-30) mmol/L BUN (9-20) mg/dL Creatinine (0.66-1.25) mg/dL Glucose (74-99) mg/dL POC Glucose (mg/dL) 111 H 134 H 133 H (75-99) mg/dL Calcium (8.4-10.2) mg/dL Iron (65-175) ug/dL TIBC (228-460) ug/dL % Saturation (15.00-50.00) Transferrin (204.0-354.0) mg/dL AST (17-59) U/L ALT (4-49) U/L Total Protein (6.3-8.2) g/dL Albumin (3.5-5.0) g/dL Crossmatch 07/25/21 07/25/21 07/25/21 Range/Units 00:02 01:46 02:54 RBC (4.30-5.90) m/uL Hgb (13.0-17.5) gm/dL Hct (39.0-53.0) % Plt Count (150-450) k/uL Lymphocytes # (1.0-4.8) k/uL ABG pCO2 (35-45) mmHg ABG pO2 (83-108) mmHg ABG HCO3 (21-25) mmol/L ABG O2 Saturation (94-97) % ABG Lactic Acid (0.5-1.6) mmol/L VBG HCO3 (24-28) mmol/L Sodium (137-145) mmol/L Chloride (98-107) mmol/L Carbon Dioxide (22-30) mmol/L BUN (9-20) mg/dL Creatinine (0.66-1.25) mg/dL Glucose (74-99) mg/dL POC Glucose (mg/dL) 131 H 109 H 119 H (75-99) mg/dL Calcium (8.4-10.2) mg/dL Iron (65-175) ug/dL TIBC (228-460) ug/dL % Saturation (15.00-50.00) Transferrin (204.0-354.0) mg/dL AST (17-59) U/L ALT (4-49) U/L Total Protein (6.3-8.2) g/dL Albumin (3.5-5.0) g/dL Crossmatch 07/25/21 07/25/21 07/25/21 Range/Units 04:14 04:20 04:20 RBC 2.72 L (4.30-5.90) m/uL Hgb 8.8 L (13.0-17.5) gm/dL Hct 26.6 L (39.0-53.0) % Plt Count 64 L (150-450) k/uL Lymphocytes # 0.7 L (1.0-4.8) k/uL ABG pCO2 (35-45) mmHg ABG pO2 (83-108) mmHg ABG HCO3 (21-25) mmol/L ABG O2 Saturation (94-97) % ABG Lactic Acid (0.5-1.6) mmol/L VBG HCO3 (24-28) mmol/L Sodium 136 L (137-145) mmol/L Chloride 110 H (98-107) mmol/L Carbon Dioxide 18 L (22-30) mmol/L BUN 37 H (9-20) mg/dL Creatinine 1.64 H (0.66-1.25) mg/dL Glucose 116 H (74-99) mg/dL POC Glucose (mg/dL) 124 H (75-99) mg/dL Calcium 8.0 L (8.4-10.2) mg/dL Iron (65-175) ug/dL TIBC (228-460) ug/dL % Saturation (15.00-50.00) Transferrin (204.0-354.0) mg/dL AST 840 H (17-59) U/L ALT 570 H (4-49) U/L Total Protein 4.8 L (6.3-8.2) g/dL Albumin 2.9 L (3.5-5.0) g/dL Crossmatch 07/25/21 07/25/21 07/25/21 Range/Units 05:15 06:50 07:23 RBC (4.30-5.90) m/uL Hgb (13.0-17.5) gm/dL Hct (39.0-53.0) % Plt Count (150-450) k/uL Lymphocytes # (1.0-4.8) k/uL ABG pCO2 (35-45) mmHg ABG pO2 24 L* (83-108) mmHg ABG HCO3 (21-25) mmol/L ABG O2 Saturation 36.7 L (94-97) % ABG Lactic Acid (0.5-1.6) mmol/L VBG HCO3 (24-28) mmol/L Sodium (137-145) mmol/L Chloride (98-107) mmol/L Carbon Dioxide (22-30) mmol/L BUN (9-20) mg/dL Creatinine (0.66-1.25) mg/dL Glucose (74-99) mg/dL POC Glucose (mg/dL) 121 H 117 H (75-99) mg/dL Calcium (8.4-10.2) mg/dL Iron (65-175) ug/dL TIBC (228-460) ug/dL % Saturation (15.00-50.00) Transferrin (204.0-354.0) mg/dL AST (17-59) U/L ALT (4-49) U/L Total Protein (6.3-8.2) g/dL Albumin (3.5-5.0) g/dL Crossmatch 07/25/21 07/25/21 07/25/21 Range/Units 07:26 07:47 08:00 RBC (4.30-5.90) m/uL Hgb (13.0-17.5) gm/dL Hct (39.0-53.0) % Plt Count (150-450) k/uL Lymphocytes # (1.0-4.8) k/uL ABG pCO2 30 L (35-45) mmHg ABG pO2 75 L (83-108) mmHg ABG HCO3 20 L (21-25) mmol/L ABG O2 Saturation (94-97) % ABG Lactic Acid 2.1 H (0.5-1.6) mmol/L VBG HCO3 (24-28) mmol/L Sodium (137-145) mmol/L Chloride (98-107) mmol/L Carbon Dioxide (22-30) mmol/L BUN (9-20) mg/dL Creatinine (0.66-1.25) mg/dL Glucose (74-99) mg/dL POC Glucose (mg/dL) (75-99) mg/dL Calcium (8.4-10.2) mg/dL Iron (65-175) ug/dL TIBC (228-460) ug/dL % Saturation (15.00-50.00) Transferrin (204.0-354.0) mg/dL AST (17-59) U/L ALT (4-49) U/L Total Protein (6.3-8.2) g/dL Albumin (3.5-5.0) g/dL Crossmatch See Detail 07/25/21 Range/Units 08:05 RBC (4.30-5.90) m/uL Hgb (13.0-17.5) gm/dL Hct (39.0-53.0) % Plt Count (150-450) k/uL Lymphocytes # (1.0-4.8) k/uL ABG pCO2 (35-45) mmHg ABG pO2 (83-108) mmHg ABG HCO3 (21-25) mmol/L ABG O2 Saturation (94-97) % ABG Lactic Acid (0.5-1.6) mmol/L VBG HCO3 (24-28) mmol/L Sodium (137-145) mmol/L Chloride (98-107) mmol/L Carbon Dioxide (22-30) mmol/L BUN (9-20) mg/dL Creatinine (0.66-1.25) mg/dL Glucose (74-99) mg/dL POC Glucose (mg/dL) 115 H (75-99) mg/dL Calcium (8.4-10.2) mg/dL Iron (65-175) ug/dL TIBC (228-460) ug/dL % Saturation (15.00-50.00) Transferrin (204.0-354.0) mg/dL AST (17-59) U/L ALT (4-49) U/L Total Protein (6.3-8.2) g/dL Albumin (3.5-5.0) g/dL Crossmatch - Imaging and Cardiology Chest x-ray: report reviewed, image reviewed Assessment and Plan Assessment: 1. Triple-vessel coronary artery disease, non-STEMI and admission, status post triple-vessel coronary artery bypass grafting surgery 2. Acute systolic heart failure present on admission, EF 30-35% 3. First-degree heart block, paroxysmal episodes of second-degree and complete heart block this admission 4. Preoperative paroxysmal atrial fibrillation, status post bilateral pulmonary vein isolation using bipolar radiofrequency energy from Atricure and exclusion of his left atrial appendage using a 40 mm Atriclip 5. Acute kidney injury 6. Elevated CRP, pro-calcitonin on admission 7. Aortic stenosis, status post aortic valve replacement using a 23 mm pericardial bioprosthetic Inspiris valve 8. History of hypertension 9. History of hyperlipidemia, treated, cholesterol 129, LDL 71 10. Yik-cunnyph-etfowqoqt diabetes, hemoglobin A1c 8.6% 11. Lifetime nonsmoker, preoperative FEV1 72% of predicted 12. Family history of heart disease 13. Remains unvaccinated against covid 14. Postoperative acute blood loss anemia, expected given hemodilution and cardiopulmonary bypass 15. Hypotension, multifactorial, could be secondary to postoperative acute blood loss anemia and preoperative ejection fraction of 30-35% 16. Transaminitis, AST 840 and ALT 570 Plan: 1. Continue low-dose aspirin and Plavix. Will continue to hold off on his beta jose raul this time due to episodes of bradycardia, first degree, second degree and complete heart block preoperatively. We will start beta jose raul when able to tolerate. 2. Continue to hold statin at this time due to his elevated liver enzymes. On ce his liver enzymes are normalized we will restart his statin. 3. Wean O2 as tolerated. Encourage incentive spirometry use. Bronchodilators per pulmonology/critical care medicine. 4. Increase activity, ambulate as tolerated. PT/OT/cardiac rehab following. 5. Will monitor daily labs and chest x-rays. Electrolyte replacement per protocol. Avoid nephrotoxic agents. 6. GI/DVT prophylaxis. 7. Insulin management per primary care service. The patient is a diabetic with a preoperative hemoglobin A1c of 8.6%. He will need tight glucose control to prevent sternal wound infection and promote healing. 8. Continue right IJ Cordis and Powell-Adalberto catheter with hemodynamic monitoring. Continue Primacor drip at 0.04 mcg/kg/m. 9. Pain control with current medication regimen. 10. Stat 2-D echocardiogram to evaluate LV and RV function. 11. Keep the left and right pleural chest tubs for another 24 hours to low continuous wall suction. 12. Continue Nava catheter for another 24 hours for strict accurate intake and output. 13. Continue to wean norepinephrine drip and vasopressin drip as tolerated to keep a mean arterial pressure of 70 or greater. 14. Continue atrial and ventricular epicardial pacemaker wires, keep pacemaker generator at an AAI of 90 BPM. 15. Lasix 40 mg IV 1 now. 16. Send mixed venous gases this and arterial blood gas now. 17. 1 g of calcium gluconate IV piggyback 1 now. 18. Start epinephrine drip at 0.01 mcg/kg/m. 19. Transfuse 1 unit of packed red blood cells 1 now. 20. Send stat venous lactic acid level and cortisol level. 21. Send HIT panel and we will discontinue his subcu heparin due to his platelets of 64. 22. Start Midodrine 10 mg by mouth 3 times a day. 23. More recommendations to follow based on patient's clinical course. Time with Patient: Greater than 30
[2021-07-25 11:31] LABS: Glucose,Whole Blood 117 mg/dL (75-99)
[2021-07-25] MEDS: INSULIN ASPART (NovoLOG) 100 UNIT/ML VIAL SQ SCH ×3 (11:36→20:23)
[2021-07-25] MEDS: MIDODRINE 5 MG TAB PO SCH ×2 (12:14→16:58)
[2021-07-25 13:22] LABS: ABG Base Excess -11.3 mmol/L; ABG HCO3 14 mmol/L (21-25); ABG Oxygen Saturation 93.9 % (94-97); ABG PCO2 26 mmHg (35-45); ABG PH 7.36 (7.35-7.45); ABG PO2 72 mmHg (83-108); ABG TCO2 15 mmol/L (19-24)
[2021-07-25 13:26] LABS: ABG Base Excess -9.4 mmol/L; ABG HCO3 17 mmol/L (21-25); ABG PCO2 32 mmHg (35-45); ABG PH 7.32 (7.35-7.45); ABG TCO2 18 mmol/L (19-24)
[2021-07-25 13:28] LABS: Allen Test Performed? no
[2021-07-25 13:29] LABS: ABG PO2 27 mmHg (83-108); Allen Test Performed? no
[2021-07-25] MEDS ORDERED: SODIUM BICARB 8.4% 50 ML SYR (1 MEQ/ML) IV STA ×2 (13:39→15:55)
[2021-07-25] MEDS: MILRINONE-D5W PMX 20 MG in DEXTROSE/WATER 1 100ML.BAG IV SCH ×2 (13:53→23:00)
[2021-07-25] MEDS: AMIODARONE 200 MG TAB PO SCH ×2 (13:53→20:23)
[2021-07-25 13:58] LABS: HCT 30.7 % (39.0-53.0); HGB 10.2 gm/dL (13.0-17.5); MCH 32.2 pg (25.0-35.0); MCHC 33.1 g/dL (31.0-37.0); MCV 97.3 fL (80.0-100.0); Mean Platelet Volume 10.8; RBC 3.15 m/uL (4.30-5.90); RDW 15.2 % (11.5-15.5)
[2021-07-25 14:09] LABS: Calcium 8.2 mg/dL (8.4-10.2); Platelet Count 62 k/uL (150-450); Potassium 5.1 mmol/L (3.5-5.1); Total Bilirubin 2.1 mg/dL (0.2-1.3); Total Protein 5.1 g/dL (6.3-8.2)
[2021-07-25 15:42] LABS: ABG Base Excess -8.3 mmol/L; ABG HCO3 17 mmol/L (21-25); ABG Oxygen Saturation 99.4 % (94-97); ABG PCO2 27 mmHg (35-45); ABG PO2 129 mmHg (83-108); ABG TCO2 17 mmol/L (19-24); Allen Test Performed? Yes
[2021-07-25 16:49] LABS: Glucose,Whole Blood 247 mg/dL (75-99)
--- NOTE | 2021-07-25 17:05 | P.PN ---
Subjective Progress Note Date: 07/25/21 On 07/22/2021, patient is seen in intensive care unit following his surgery, patient had a aortic valve replacement with the #23 is parous pericardial bioprosthetic valve, and a three-vessel coronary artery bypass grafting with BAIN to the LAD, SVG to the OM 2 and OM 3, left atrial appendage ligation. Tomasz lopez just arrived to the intensive care unit, intubated, and sedated, on assist-control mode of ventilation with a rate of 16, tidal volume of 500 FiO2 of sent and PEEP of 10. She is currently on 0.9 normal saline at a rate of 50 ML per hour, he is on norepinephrine at 9 mics per minute, vasopressin at 0.02 units/min, primacore at 0.3 mics per kilo per minute, Diprivan and is at 10 mics per kilo per minute. Hemodynamically patient is currently being paced at AAI mode with a rate of 80. Currently blood pressure is 139/48, PA pressures 31/20, CVP is 14, cardiac output is 4.2, cardiac index is 2.0. Patient has 4 chest tubes and mediastinal, 1 right pleural and one left pleural chest tubes, mediastinal chest tubes are connected to the same Pleur-evac, and there is 200 mL of serosanguineous output, left pleural chest tube has 140 mL of sanguinous output and a chest tube with 140 mL of sanguinous output. No air leak. Catheter is in place, and patient is making adequate urine output. Chest x-ray has been reviewed, tube to low intermittent suction. The patient is seen today 07/23/2021 in follow-up in the intensive care unit. This is postoperative day #1 of a triple vessel coronary artery bypass grafting using the BAIN to the LAD, reverse saphenous vein graft to the second obtuse marginal, third obtuse marginal. Aortic valve replacement using a 23 mm pericardial bioprosthetic Inspiris. He was successfully extubated at 10:15 last evening. Currently on 4 L high flow nasal cannula to maintain O2 saturation in the mid 90s. Chest x-ray showing interval development of mild pulmonary vascular congestion and a probable small bilateral effusions. He is sitting up in a chair at the bedside. He is arousable. He drifts off easily. He is oriented 1 to person. Somewhat slow to respond. Very weak. He did have hypotension postoperatively with some acute blood loss anemia. His ejection fraction is 30-35%. He is currently requiring norepinephrine at 0.14 g per kilogram per minute. He is on vasopressin at 0.03 units per minute. Primacor at 0.03 mcg/kg/m. Right IJ [place] and [place] skin catheter in place. Current cardiac output 4.6. Cardiac index 2.2. PA pressures 39/15 with a CVP of 14. He is on insulin drip at 4 units per hour. 0.9% normal saline at 50 MLS per hour. He is currently in an atrial paced rhythm at 80 bpm. Pacer wires in place. Mediastinal, right and left pleural chest tubes remain in place. Urine output is adequate. White count 6.3. Hemoglobin 7.3. Platelets 108. Sodium 136. Potassium 5.0. Bicarb 20. BUN 22. Creatinine 1.62. Blood glucose 127. AST 568. ALT 343. Arterial blood gases revealed a pO2 of 84, P CO2 of 30 and a pH of 7.43. He is continued on heparin subcu for DVT prophylaxis. Protonix for GI prophylaxis. On 07/24/2021, the patient is sitting up on a chair. He is postop day #2 following coronary artery bypass surgery and aortic valve replacement. The patient was extubated and he is currently on oxygen by nasal cannula at 2 L. They did use BiPAP on and off post extubation. He was briefly placed on BiPAP yesterday and currently is on 2 L of oxygen by nasal cannula. He is using incentive spirometer. He is weak. His still lethargic. He is not confused. He is moving all 4 extremities without any limitation. The chest x-ray from today is showing adequate expansion of both lungs. Chest tubes are still in place. Some atelectatic changes in the lung bases bilaterally. No evidence of any pneumothorax. [place] catheter remains in a good location. Meanwhile, the patient remains on a combination of inotropes. He is on milrinone running at 0.3 back to respiratory kilogram per minute and he is also on vasopressin at 0.02 units an hour/minutes and he is also on norepinephrine infusion at 0.04 mcg/kg per minute. His cardiac output is at 4.2 with an index of 2. Pulmonary artery pressures of 43/22. Chest tubes are in place. The patient has 2 mediastinal and 1 left pleural chest tube. Output was noted. The output is in order of less than 100 mL over the past shift and there is no evidence of any air leak. The patient's cardiac rhythm is a atrial fibrillation, slightly tachycardic and the patient is going to be started on amiodarone drip. In terms of his other work, the patient had developed an acute kidney injury. Creatinine was up to 1.6. Today's creatinine is still at 1.6 with a BUN of 26. Sodium is at 140, potassium is at 4.6. White cell count is at 7.3 with a hemoglobin of 9.1 and platelet count of 85. Liver function tests are on the rise. ALT is up to 1133 and AST is up to 497. Insulin drip is still running at the rate of 5 units an hour. On 07/25/2021 patient seen in follow-up in the intensive care unit. Today is postoperative day #3, status post aortic valve replacement surgery, and three- vessel coronary artery bypass grafting with a BAIN to the LAD, SVG to the OM 2 and OM 3 and the left atrial appendage ligation. Patient is awake and alert, he is currently up in the recliner, he is mildly short of breath, does not appear to be in acute distress, he did wear BiPAP support during the day yesterday, and last night with pressures of 12 and 5 and FiO2 of 40%. He is currently on 2 L of oxygen. He remains on multiple drips including epinephrine at 0.02 mics per kilo per minute, milrinone remains a 0.4 mics per kilo per minute, amiodarone is a 0.5 mg/m, norepinephrine at 0.05 mics per kilo per minute, 0.9 normal saline at 50 ML per hour, vasopressin at 0.03 units per kilo per hour, and he is currently receiving a blood transfusion which is infusing at 200 mL on hour. His A. fib is currently slightly better controlled although he still mildly tachycardic at rate of 116 BPM, his blood pressure is 121/55, his PA pressure is 41/23, his CVP is 18, his cardiac output is 5.5 and cardiac index is 2.6. His been afebrile, today's chest x-ray has been reviewed showing persistent cardiomegaly with left greater than right bibasilar infiltrates and/or atelectasis and small left pleural effusion without significant change from one day earlier. He is awake and alert, oriented 3, he is answering to questions appropriately, he is still having some surgical incisional discomfort, his pain rating is 6 out of 10. On oral medications for pain control, incentive spirometry effort is 750 mL. Urine output is in the order of 10-30 ML per hour. Today's labs have been reviewed why blood cell count is 10.0, hemoglobin is 10.2, sodium is 134, potassium is 5.1, chloride is 108, CO2 is 13, anion gap was 13, BUN is 41, creatinine is 1.72, lactic acid today was 3.2, calcium was 8.2, total bilirubin was 2.1, AST was 571, ALT was 497, LFTs are improved. Objective - Vital Signs Vital signs: Vital Signs Temp 98.6 F 07/25/21 12:15 Pulse 91 07/25/21 16:00 Resp 22 07/25/21 16:00 BP 109/55 07/25/21 13:45 Pulse Ox 100 07/25/21 16:00 Intake & Output 07/24/21 07/25/21 07/25/21 18:59 06:59 18:59 Intake Total 329.082 5952.776 1963.555 Output Total 645 480 750 Balance 298.442 778.347 5157.555 Weight 99.4 kg Intake: IV 636.84 386 625 CARDIAC OUTPUT 0.9 Sodium 90 93 100 Chloride Calcium Gluconate 1 gm In 100 Sodium Chloride 0.9% 100 ml @ 100 mls/hr IVPB ONCE ONE Rx#:[id number] Milrinone-D5w Pmx 20 mg 9.18 In Dextrose/Water 1 100ml .bag @ Per Protocol IV . Q0M [facility] Rx#:[id number] PRESSURE BAG 0.9 Sodium 84 33 90 Chloride Sodium Chloride 0.9% 1, 330 260 290 000 ml @ 20 mls/hr IV . Q24H ON LICENSE OF [facility] Rx#:[id number] Sodium Chloride 0.9% 50 40.95 45 ml @ 0.02 UNITS/MIN 3.06 mls/hr IVPB .[id number] [facility] with Vasopressin 20 unit Rx#:[id number] Sodium Chloride 0.9% 50 9.0 ml @ 0.03 UNITS/MIN 4.59 mls/hr IVPB .Q11H7M ONE with Vasopressin 20 unit Rx#:[id number] milrinone 73.71 Intake, IV Titration 256.602 616.776 218.555 Amount Amiodarone 450 mg In 238.338 26.667 Dextrose 5% in Water 250 ml @ 0.5 MG/MIN 16.667 mls/hr IV .Q15H [facility] Rx#: [id number] EPINEPHrine 4 mg In 21.807 Dextrose 5% in Water 250 ml @ 0.01 MCG/KG/MIN 3. 728 mls/hr IV .Q24H [facility] Rx#:[id number] Insulin Regular 100 unit 54.145 23.836 24.467 In Sodium Chloride 0.9% 100 ml @ Per Protocol IV .Q0M [facility] Rx#:[id number] Milrinone-D5w Pmx 20 mg 100 In Dextrose/Water 1 100ml .bag @ Per Protocol IV . Q0M [facility] Rx#:[id number] Norepinephrine 4 mg In 202.457 254.602 145.614 Sodium Chloride 0.9% 250 ml @ 0.02 MCG/KG/MIN 6. 934 mls/hr IV .Q24H [facility] Rx#:[id number] Oral 50 500 Blood Product 620 Rc As-1 Unit 310 [id number] Output: Chest Tube Drainage 390 240 240 Chest Tube Left Lateral 210 110 160 Chest Chest Tube Mediastinal 50 Chest Tube Right Lateral 130 130 80 Chest Drainage 40 Left Calf 40 Urine 215 240 510 Other: Voiding Method Indwelling Catheter Indwelling Catheter Indwelling Catheter ABP, PAP, CO, CI - Last Documented Arterial Blood Pressure 128/58 Pulmonary Artery Pressure 35/22 Cardiac Output 3.9 Cardiac Index 1.8 - Exam GENERAL EXAM: Awake and alert, mild short of breath, 75-year-old white gentleman, on 2 L of oxygen, sitting in the recliner HEAD: Normocephalic/atraumatic. EYES: Normal reaction of pupils, equal size. Conjunctiva pink, sclera white. NOSE: Clear with pink turbinates. THROAT: No erythema or exudates. NECK: No masses, no JVD, no thyroid enlargement, no adenopathy. CHEST: No chest wall deformity. Symmetrical expansion. 2 chest tubes, 2 MS chest tubes have been discontinued, right pleural and left pleural chest tubes, no airleak, moderate sanguineous output LUNGS: Equal air entry with no crackles, wheeze, rhonchi or dullness. CVS: Regular rate and rhythm, normal S1 and S2, no gallops, no murmurs, no rubs ABDOMEN: Soft, nontender. No hepatosplenomegaly, normal bowel sounds, no guarding or rigidity. EXTREMITIES: No clubbing, no edema, no cyanosis, 2+ pulses and upper and lower extremities. MUSCULOSKELETAL: Muscle strength and tone normal. SPINE: No scoliosis or deformity SKIN: No rashes CENTRAL NERVOUS SYSTEM: awake and oriented 3 No focal deficits, tone is normal in all 4 extremities. - Labs CBC & Chem 7: 07/25/21 13:50 07/25/21 13:50 Labs: Abnormal Lab Results - Last 24 Hours (Table) 07/21/21 07/24/21 07/24/21 Range/Units 08:22 04:39 18:24 RBC (4.30-5.90) m/uL Hgb (13.0-17.5) gm/dL Hct (39.0-53.0) % Plt Count (150-450) k/uL Lymphocytes # (1.0-4.8) k/uL ABG pH (7.35-7.45) ABG pCO2 (35-45) mmHg ABG pO2 (83-108) mmHg ABG HCO3 (21-25) mmol/L ABG Total CO2 (19-24) mmol/L ABG O2 Saturation (94-97) % ABG Lactic Acid (0.5-1.6) mmol/L Sodium (137-145) mmol/L Chloride (98-107) mmol/L Carbon Dioxide (22-30) mmol/L BUN (9-20) mg/dL Creatinine (0.66-1.25) mg/dL Glucose (74-99) mg/dL POC Glucose (mg/dL) 109 H (75-99) mg/dL Plasma Lactic Acid Loco (0.7-2.0) mmol/L Calcium (8.4-10.2) mg/dL Iron 23 L (65-175) ug/dL TIBC 162 L (228-460) ug/dL % Saturation 14.04 L (15.00-50.00) Transferrin 116.0 L (204.0-354.0) mg/dL Total Bilirubin (0.2-1.3) mg/dL AST (17-59) U/L ALT (4-49) U/L Total Protein (6.3-8.2) g/dL Albumin (3.5-5.0) g/dL Crossmatch See Detail 07/24/21 07/24/21 07/24/21 Range/Units 19:06 19:13 19:53 RBC (4.30-5.90) m/uL Hgb (13.0-17.5) gm/dL Hct (39.0-53.0) % Plt Count (150-450) k/uL Lymphocytes # (1.0-4.8) k/uL ABG pH (7.35-7.45) ABG pCO2 (35-45) mmHg ABG pO2 21 L* (83-108) mmHg ABG HCO3 (21-25) mmol/L ABG Total CO2 (19-24) mmol/L ABG O2 Saturation 31.0 L (94-97) % ABG Lactic Acid 1.8 H (0.5-1.6) mmol/L Sodium (137-145) mmol/L Chloride (98-107) mmol/L Carbon Dioxide (22-30) mmol/L BUN (9-20) mg/dL Creatinine (0.66-1.25) mg/dL Glucose (74-99) mg/dL POC Glucose (mg/dL) 102 H (75-99) mg/dL Plasma Lactic Acid Loco (0.7-2.0) mmol/L Calcium (8.4-10.2) mg/dL Iron (65-175) ug/dL TIBC (228-460) ug/dL % Saturation (15.00-50.00) Transferrin (204.0-354.0) mg/dL Total Bilirubin (0.2-1.3) mg/dL AST (17-59) U/L ALT (4-49) U/L Total Protein (6.3-8.2) g/dL Albumin (3.5-5.0) g/dL Crossmatch 07/24/21 07/24/21 07/24/21 Range/Units 19:55 21:08 21:49 RBC (4.30-5.90) m/uL Hgb (13.0-17.5) gm/dL Hct (39.0-53.0) % Plt Count (150-450) k/uL Lymphocytes # (1.0-4.8) k/uL ABG pH (7.35-7.45) ABG pCO2 (35-45) mmHg ABG pO2 (83-108) mmHg ABG HCO3 (21-25) mmol/L ABG Total CO2 (19-24) mmol/L ABG O2 Saturation (94-97) % ABG Lactic Acid (0.5-1.6) mmol/L Sodium (137-145) mmol/L Chloride (98-107) mmol/L Carbon Dioxide (22-30) mmol/L BUN (9-20) mg/dL Creatinine (0.66-1.25) mg/dL Glucose (74-99) mg/dL POC Glucose (mg/dL) 103 H 111 H 134 H (75-99) mg/dL Plasma Lactic Acid Loco (0.7-2.0) mmol/L Calcium (8.4-10.2) mg/dL Iron (65-175) ug/dL TIBC (228-460) ug/dL % Saturation (15.00-50.00) Transferrin (204.0-354.0) mg/dL Total Bilirubin (0.2-1.3) mg/dL AST (17-59) U/L ALT (4-49) U/L Total Protein (6.3-8.2) g/dL Albumin (3.5-5.0) g/dL Crossmatch 07/24/21 07/25/21 07/25/21 Range/Units 22:48 00:02 01:46 RBC (4.30-5.90) m/uL Hgb (13.0-17.5) gm/dL Hct (39.0-53.0) % Plt Count (150-450) k/uL Lymphocytes # (1.0-4.8) k/uL ABG pH (7.35-7.45) ABG pCO2 (35-45) mmHg ABG pO2 (83-108) mmHg ABG HCO3 (21-25) mmol/L ABG Total CO2 (19-24) mmol/L ABG O2 Saturation (94-97) % ABG Lactic Acid (0.5-1.6) mmol/L Sodium (137-145) mmol/L Chloride (98-107) mmol/L Carbon Dioxide (22-30) mmol/L BUN (9-20) mg/dL Creatinine (0.66-1.25) mg/dL Glucose (74-99) mg/dL POC Glucose (mg/dL) 133 H 131 H 109 H (75-99) mg/dL Plasma Lactic Acid Loco (0.7-2.0) mmol/L Calcium (8.4-10.2) mg/dL Iron (65-175) ug/dL TIBC (228-460) ug/dL % Saturation (15.00-50.00) Transferrin (204.0-354.0) mg/dL Total Bilirubin (0.2-1.3) mg/dL AST (17-59) U/L ALT (4-49) U/L Total Protein (6.3-8.2) g/dL Albumin (3.5-5.0) g/dL Crossmatch 07/25/21 07/25/21 07/25/21 Range/Units 02:54 04:14 04:20 RBC 2.72 L (4.30-5.90) m/uL Hgb 8.8 L (13.0-17.5) gm/dL Hct 26.6 L (39.0-53.0) % Plt Count 64 L (150-450) k/uL Lymphocytes # 0.7 L (1.0-4.8) k/uL ABG pH (7.35-7.45) ABG pCO2 (35-45) mmHg ABG pO2 (83-108) mmHg ABG HCO3 (21-25) mmol/L ABG Total CO2 (19-24) mmol/L ABG O2 Saturation (94-97) % ABG Lactic Acid (0.5-1.6) mmol/L Sodium (137-145) mmol/L Chloride (98-107) mmol/L Carbon Dioxide (22-30) mmol/L BUN (9-20) mg/dL Creatinine (0.66-1.25) mg/dL Glucose (74-99) mg/dL POC Glucose (mg/dL) 119 H 124 H (75-99) mg/dL Plasma Lactic Acid Loco (0.7-2.0) mmol/L Calcium (8.4-10.2) mg/dL Iron (65-175) ug/dL TIBC (228-460) ug/dL % Saturation (15.00-50.00) Transferrin (204.0-354.0) mg/dL Total Bilirubin (0.2-1.3) mg/dL AST (17-59) U/L ALT (4-49) U/L Total Protein (6.3-8.2) g/dL Albumin (3.5-5.0) g/dL Crossmatch 07/25/21 07/25/21 07/25/21 Range/Units 04:20 05:15 06:50 RBC (4.30-5.90) m/uL Hgb (13.0-17.5) gm/dL Hct (39.0-53.0) % Plt Count (150-450) k/uL Lymphocytes # (1.0-4.8) k/uL ABG pH (7.35-7.45) ABG pCO2 (35-45) mmHg ABG pO2 (83-108) mmHg ABG HCO3 (21-25) mmol/L ABG Total CO2 (19-24) mmol/L ABG O2 Saturation (94-97) % ABG Lactic Acid (0.5-1.6) mmol/L Sodium 136 L (137-145) mmol/L Chloride 110 H (98-107) mmol/L Carbon Dioxide 18 L (22-30) mmol/L BUN 37 H (9-20) mg/dL Creatinine 1.64 H (0.66-1.25) mg/dL Glucose 116 H (74-99) mg/dL POC Glucose (mg/dL) 121 H 117 H (75-99) mg/dL Plasma Lactic Acid Loco (0.7-2.0) mmol/L Calcium 8.0 L (8.4-10.2) mg/dL Iron (65-175) ug/dL TIBC (228-460) ug/dL % Saturation (15.00-50.00) Transferrin (204.0-354.0) mg/dL Total Bilirubin (0.2-1.3) mg/dL AST 840 H (17-59) U/L ALT 570 H (4-49) U/L Total Protein 4.8 L (6.3-8.2) g/dL Albumin 2.9 L (3.5-5.0) g/dL Crossmatch 07/25/21 07/25/21 07/25/21 Range/Units 07:23 07:26 07:47 RBC (4.30-5.90) m/uL Hgb (13.0-17.5) gm/dL Hct (39.0-53.0) % Plt Count (150-450) k/uL Lymphocytes # (1.0-4.8) k/uL ABG pH (7.35-7.45) ABG pCO2 30 L (35-45) mmHg ABG pO2 24 L* 75 L (83-108) mmHg ABG HCO3 20 L (21-25) mmol/L ABG Total CO2 (19-24) mmol/L ABG O2 Saturation 36.7 L (94-97) % ABG Lactic Acid 2.1 H (0.5-1.6) mmol/L Sodium (137-145) mmol/L Chloride (98-107) mmol/L Carbon Dioxide (22-30) mmol/L BUN (9-20) mg/dL Creatinine (0.66-1.25) mg/dL Glucose (74-99) mg/dL POC Glucose (mg/dL) (75-99) mg/dL Plasma Lactic Acid Loco (0.7-2.0) mmol/L Calcium (8.4-10.2) mg/dL Iron (65-175) ug/dL TIBC (228-460) ug/dL % Saturation (15.00-50.00) Transferrin (204.0-354.0) mg/dL Total Bilirubin (0.2-1.3) mg/dL AST (17-59) U/L ALT (4-49) U/L Total Protein (6.3-8.2) g/dL Albumin (3.5-5.0) g/dL Crossmatch 07/25/21 07/25/21 07/25/21 Range/Units 08:00 08:05 11:30 RBC (4.30-5.90) m/uL Hgb (13.0-17.5) gm/dL Hct (39.0-53.0) % Plt Count (150-450) k/uL Lymphocytes # (1.0-4.8) k/uL ABG pH (7.35-7.45) ABG pCO2 (35-45) mmHg ABG pO2 (83-108) mmHg ABG HCO3 (21-25) mmol/L ABG Total CO2 (19-24) mmol/L ABG O2 Saturation (94-97) % ABG Lactic Acid (0.5-1.6) mmol/L Sodium (137-145) mmol/L Chloride (98-107) mmol/L Carbon Dioxide (22-30) mmol/L BUN (9-20) mg/dL Creatinine (0.66-1.25) mg/dL Glucose (74-99) mg/dL POC Glucose (mg/dL) 115 H 117 H (75-99) mg/dL Plasma Lactic Acid Loco (0.7-2.0) mmol/L Calcium (8.4-10.2) mg/dL Iron (65-175) ug/dL TIBC (228-460) ug/dL % Saturation (15.00-50.00) Transferrin (204.0-354.0) mg/dL Total Bilirubin (0.2-1.3) mg/dL AST (17-59) U/L ALT (4-49) U/L Total Protein (6.3-8.2) g/dL Albumin (3.5-5.0) g/dL Crossmatch See Detail 07/25/21 07/25/21 07/25/21 Range/Units 13:21 13:24 13:50 RBC 3.15 L (4.30-5.90) m/uL Hgb 10.2 L (13.0-17.5) gm/dL Hct 30.7 L (39.0-53.0) % Plt Count 62 L (150-450) k/uL Lymphocytes # (1.0-4.8) k/uL ABG pH 7.32 L (7.35-7.45) ABG pCO2 26 L 32 L (35-45) mmHg ABG pO2 72 L 27 L* (83-108) mmHg ABG HCO3 14 L 17 L (21-25) mmol/L ABG Total CO2 15 L 18 L (19-24) mmol/L ABG O2 Saturation 93.9 L 43.0 L (94-97) % ABG Lactic Acid (0.5-1.6) mmol/L Sodium (137-145) mmol/L Chloride (98-107) mmol/L Carbon Dioxide (22-30) mmol/L BUN (9-20) mg/dL Creatinine (0.66-1.25) mg/dL Glucose (74-99) mg/dL POC Glucose (mg/dL) (75-99) mg/dL Plasma Lactic Acid Loco (0.7-2.0) mmol/L Calcium (8.4-10.2) mg/dL Iron (65-175) ug/dL TIBC (228-460) ug/dL % Saturation (15.00-50.00) Transferrin (204.0-354.0) mg/dL Total Bilirubin (0.2-1.3) mg/dL AST (17-59) U/L ALT (4-49) U/L Total Protein (6.3-8.2) g/dL Albumin (3.5-5.0) g/dL Crossmatch 07/25/21 07/25/21 07/25/21 Range/Units 13:50 13:50 15:35 RBC (4.30-5.90) m/uL Hgb (13.0-17.5) gm/dL Hct (39.0-53.0) % Plt Count (150-450) k/uL Lymphocytes # (1.0-4.8) k/uL ABG pH (7.35-7.45) ABG pCO2 27 L (35-45) mmHg ABG pO2 129 H (83-108) mmHg ABG HCO3 17 L (21-25) mmol/L ABG Total CO2 17 L (19-24) mmol/L ABG O2 Saturation 99.4 H (94-97) % ABG Lactic Acid (0.5-1.6) mmol/L Sodium 134 L (137-145) mmol/L Chloride 108 H (98-107) mmol/L Carbon Dioxide 13 L (22-30) mmol/L BUN 41 H (9-20) mg/dL Creatinine 1.72 H (0.66-1.25) mg/dL Glucose 196 H (74-99) mg/dL POC Glucose (mg/dL) (75-99) mg/dL Plasma Lactic Acid Loco 3.2 H* (0.7-2.0) mmol/L Calcium 8.2 L (8.4-10.2) mg/dL Iron (65-175) ug/dL TIBC (228-460) ug/dL % Saturation (15.00-50.00) Transferrin (204.0-354.0) mg/dL Total Bilirubin 2.1 H (0.2-1.3) mg/dL AST 571 H (17-59) U/L ALT 497 H (4-49) U/L Total Protein 5.1 L (6.3-8.2) g/dL Albumin 3.0 L (3.5-5.0) g/dL Crossmatch Assessment and Plan Plan: Assessment: Assessment: #1. Acute non-ST segment elevated myocardial infarction and multivessel coronary artery disease and severe aortic valve stenosis, status post three- vessel coronary artery bypass grafting with BAIN to the LAD, SVG to the OM 2 and OM 3, and aortic valve replacement on 07/22/2021, patient remains in the intensive care unit, today it is postoperative day #3 on 07/25/2021, continues on multiple drips and inotropes for hemodynamic support. Cardiac output and index are improved on multiple drips and inotropes. Patient has developed an acute kidney injury and shock liver. Currently remains on low-dose norepinephrine, epinephrine, milrinone and vasopressin. #2. Routine postoperative ventilator management, patient was successfully wea jaskaran and extubated on postoperative day #0, currently requiring on and off BiPAP support and nasal cannula with 2 L of oxygen and chest x-ray showing cardiomegaly with left greater than right bibasilar infiltrates and atelectasis small left pleural effusion. #3. Acute systolic congestive heart failure with an ejection fraction of 30- 35%. His preop CT chest showed bilateral pleural effusions with cardiomegaly #4. Hypotension, multifactorial, related to postoperative bleeding, and poor ejection fraction currently on small dose of vasopressors in the form of norepinephrine at 0.05 mcg/kg/min mics per minute, vasopressin is at 0.02 units per minute, and Primacor at 0.4 #5. Acute hypoxic respiratory failure secondary to pulmonary edema. His preop FEV1 was 72% of predicted. Patient was successfully weaned and extubated on postoperative day #0, however he is requiring on and off BiPAP support with FiO2 of 40% #6. Hypertension #7. Hyperlipidemia #8. Diabetes mellitus type 2 #9. Acute kidney injury likely cardiorenal and his kidney function has been closely monitored #10. Shock liver #11. Acute blood loss anemia, expected outcome of surgery, patient has received 3 units of packed red blood cells current hemoglobin is 10.2, #12. New onset A. fib with rapid ventricular response currently on amiodarone Plan: Patient continues on BiPAP support at bedtime and as needed during the day, His been able to tolerate nasal cannula at 2 L Chest x-ray has been reviewed showing small left-sided pleural effusion Patient continues to require multiple inotropes and milrinone for hemodynamic support Today's labs have been reviewed Creatinine slightly worsened, LFTs are improving Remains in A. fib with RVR Rate is slightly better controlled Mentation is appropriate, he is awake and alert, denies any acute distress Diuretics per nephrology and CT surgery No significant hypoxia We'll continue closely following the patient's course in the ICU I performed a history & physical examination of the patient and discussed their management with my nurse practitioner, Marilu Jiménez. I reviewed the nurse practitioner's note and agree with the documented findings and plan of care. Lung sounds are positive for diffuse wheezes throughout the lung martins. The findings and the impression was discussed with the patient. I attest to the documentation by the nurse practitioner. Time with Patient: Greater than 30
[2021-07-25 17:07] LABS: ABG Base Excess -4.7 mmol/L; ABG HCO3 19 mmol/L (21-25); ABG PCO2 27 mmHg (35-45); ABG PH 7.46 (7.35-7.45); ABG PO2 80 mmHg (83-108); ABG TCO2 20 mmol/L (19-24); Allen Test Performed? Yes
[2021-07-25 19:18] LABS: ABG Base Excess -4.6 mmol/L; ABG HCO3 20 mmol/L (21-25); ABG Oxygen Saturation 99.9 % (94-97); ABG PCO2 29 mmHg (35-45); ABG PH 7.44 (7.35-7.45); ABG PO2 215 mmHg (83-108); ABG TCO2 21 mmol/L (19-24); Allen Test Performed? Yes
[2021-07-25 20:20] LABS: Glucose,Whole Blood 255 mg/dL (75-99)
[2021-07-25] MEDS: SENNOSIDES-DOCUSATE SODIUM 1 EACH TAB PO SCH (20:23)
--- NOTE | 2021-07-25 21:53 | P.PN ---
Subjective This is a pleasant 75 years old male with past medical history of Diabetes Mellitus, Hyperlipidemia, Hypertension Patient presents because of the progressive exertional dyspnea and decreased leg swelling over one month, bilateral leg swelling and bilateral neck pain. However yesterday he started getting orthopnea, he could not lay down and his w talita asked him to come to emergency room. Also patient is complaining of from dry cough and sore throat, mouth is making some clear phlegm. He denies chest pain or abdominal pain. No dizziness. He was complaining of from little diarrhea, he felt almost going to vomit this morning but did not. No urinary complaints. No weakness or numbness He denies smoking, alcohol or illicit drugs Vitals are stable and he is saturating 96% on room air. Labs were reviewed including unremarkable CBC except for mild lymphopenia at 0.7, INR is 1.0. Sodium is 124, carbon dioxide 17, creatinine 1.1, glucose 220 Liver enzymes not elevated. Troponin is high as 0.418, C-reactive protein 2.0. ProBNP is 4880 Coronavirus not detected. EKG showing normal sinus rhythm at 85 with first-degree AV block and incomplete right bundle branch block, no significant ST-T changes. Chest x-ray: Interstitial pulmonary edema with increased cardiomegaly In the emergency room patient was started on IV Lasix 40 mg every 8 hours and cardiology team were consulted. 07/17/2021 Patient breathing is better, he does not complain from jaw pain or neck pain anymore, he is breathing easier, less leg edema. Patient is continued on IV Lasix 40 mg twice daily, also he is on heparin drip His sodium is improved today to 1.7 however his creatinine went up to 1.4. Because of his worsening kidney function we hold his metformin and switch him to Amaryl 2 mg daily, patient informed of his uncontrolled diabetes as his hemoglobin A1c is a 42.6%. Echocardiogram showed ejection fraction of 30-35% with moderate mitral regurgitation, 2018 8 was 55-60% Patient possibly will go for cardiac cath tomorrow 07/18/2021 Patient feels better, his breathing is easier. He has no more jaw pain, leg swelling is significantly improved he has crepitationandonlyminimal. He has some wheezing during examination most likely secondary to his CHF, patient is nonsmoker with no history of COPD. He is hemodynamically stable, he is on room air. Creatinine is trending up 1.1, 1.4, and 1.58 today. However sodium significantly improved up to 133. His Lasix was switched to 40 mg by mouth daily. His glucose is controlled 136 and 142 after he was started on Amaryl today we will keep monitoring, metformin was held for his acute kidney injury. He has slight ejection fraction of 30-35% with moderate MR and he needs cardiac cath however it is on hold now to further evaluation for his kidney injury, most likely secondary to diuresis, nephrology team was consulted, renal ultrasound is pending. 81 mg 07/19/2021 Patient breathing is improved close to normal however he has some residual basal crepitation which is mild. Very minimal leg swelling. No much exertional dyspnea. And his diuretics are switched to oral dose again Lasix 40 mg daily His creatinine improved 1.3 from 1.8 yesterday. Glucose less than 150. After switching his metformin and to Amaryl 2 mg daily. Hemoglobin A1c is 8.6% Plan for him to go for cardiac cath today. Renal ultrasound showing no hydronephrosis. Tenderness on home dose of aspirin 81 mg, oral Lasix and metoprolol 07/20/2021 Today with minimal dyspnea however he still have bilateral basal crepitation and leg edema, he is saturating 95-96% on 2 L oxygen via nasal cannula. His creatinine slightly up to 1.5. Glucose controlled. Renal ultrasound showing no hydronephrosis. Cardiac cath yesterday showing severe triple coronary artery disease, referred to thoracic surgery been consulted for possible CABG 07/21/2021 Patient currently sitting in bed looks comfortable, no chest pain, no significant dyspnea. Using his incentive spirometry frequently. He is currently kept on heparin drip. Minimal leg swelling, mild basal crepitation. He is hemodynamically stable. He is saturating 97% on 2 L oxygen via nasal cannula. His sodium 132, creatinine improved to 1.28, glucose controlled while he is on Amaryl 2 mg. His metformin, metoprolol and lisinopril are on hold for hypertension acute kidney injury. Patient currently has been worked up for possible cardiac bypass surgery with cardiovascular surgery team on the case. 07/22/2021 Patient is going for cardiac bypass surgery today. This with no chest pain or dyspnea. Hemodynamically stable. Glucose controlled however it might be needed to be started on insulin drip. Most likely patient will go to the intensive care unit post procedure. We will follow up with him 07/23/2021 Patient status post multiple vessel coronary artery bypass grafting for severe triple coronary artery disease and aortic valve replacement for severe aortic stenosis and today is postop day #1. Patient was sitting in chair, awake but very drowsy however he is able to follow commands with minimal movement. Because of his generalized weakness. Patient has hypotension that required pressors in the form of vasodepressor at 0.03 and levophed at 0.14. Also he has some low-grade temperature at 100.9. He is tachypneic at 29, oxygen saturation and requirements is at 4 L/m. He developed postoperative hyperkalemia at 6.3, corrected with 10 units of insulin and D50 ample down to 5.1. He has drop of hemoglobin down to 7.3 and he is getting 1 unit of blood transfusion. Platelet count 108. Sodium is 132, creatinine 1.6 which is close to baseline as he has chronic kidney disease. Never enzymes significantly elevated with AST 568 and ALT 343. Chest x-ray showing no mild pulmonary vascular congestion and receives one-time dose of IV Lasix 20 mg Also he is on insulin drip while metformin and Amaryl are on hold. Blood pressure medication of metoprolol and lisinopril were held prior to surgery because of hypotension and acute kidney injury. Patient currently kept on home dose of aspirin 81 mg and added Mavik 75 mg 07/24/2021 Patient sitting in chair, his mentation improving today and he follows commands with no difficulty moving her arms or legs but he looks very tired and lethargic. Blood pressure is 93/74. Heart rate is around 70. He had no fever today and his respiratory rate is 24-28 and his oxygen saturation is acceptable and 2 L/m of oxygen. His sodium is 140, creatinine stable at 1.6 but liver enzymes trending up to 1133 and AST and ALT is still up about 497. Glucose controlled on insulin drip. He received one unit of blood transfusion in hemoglobin went up 7.38 to 9.1. Platelets 85K. Lipase is normal at 7.3. Chest x-ray showing postsurgical changes and chest tubes are unchanged in position while there is decrease in vascular congestion. His pO2 was one and he is currently on BiPAP with FiO2 of 40%. He remains on amiodarone drip which is added for new onset A. fib. Also his continued on aspirin 81 mg which is home dose and added Plavix in the hospital. 07/25/2021 Patient remains monitored closely in the ICU under critical condition, he is very lethargic but awake and follow commands. His blood pressure is 108/59 and 80/40. That needs pressors. Heart rate is 94. Labs reviewed showing AST is 571 which is improving and ALT fourth 97. Glucose is controlled but around 200. Bilirubin is elevated at 2.1. Her hemoglobin is stable at 10.2. Platelet to 62K and white BC is 10 K. Chest x-ray showing no change with cardiomegaly and bibasilar infiltrates. Ejection fraction is still low at 25-30%. Patient remains on many risks are slightly renal. He is on aspirin and Plavix. And antihypertensive medications are on hold.. Objective - Vital Signs Vital signs: Vital Signs Temp 98.8 F 07/25/21 10:07 Pulse 89 07/25/21 10:07 Resp 14 07/25/21 10:07 BP 118/47 07/25/21 10:07 Pulse Ox 94 L 07/25/21 10:07 Intake & Output 07/24/21 07/25/21 07/25/21 18:59 06:59 18:59 Intake Total 750.590 6119.776 112.615 Output Total 645 480 Balance 298.442 522.776 112.615 Weight 99.4 kg Intake: IV 636.84 386 CARDIAC OUTPUT 0.9 Sodium 90 93 Chloride Milrinone-D5w Pmx 20 mg 9.18 In Dextrose/Water 1 100ml .bag @ Per Protocol IV . Q0M [facility] Rx#:[id number] PRESSURE BAG 0.9 Sodium 84 33 Chloride Sodium Chloride 0.9% 1, 330 260 000 ml @ 20 mls/hr IV . Q24H [facility] Rx#:[id number] Sodium Chloride 0.9% 50 9.0 ml @ 0.03 UNITS/MIN 4.59 mls/hr IVPB .Q11H7M ONE with Vasopressin 20 unit Rx#:[id number] Sodium Chloride 0.9% 50 40.95 ml @ 0.03 UNITS/MIN 4.59 mls/hr IVPB .Q11H7M [facility] with Vasopressin 20 unit Rx#:[id number] milrinone 73.71 Intake, IV Titration 256.602 616.776 112.615 Amount Amiodarone 450 mg In 238.338 26.667 Dextrose 5% in Water 250 ml @ 0.5 MG/MIN 16.667 mls/hr IV .Q15H [facility] Rx#: [id number] Insulin Regular 100 unit 54.145 23.836 24.467 In Sodium Chloride 0.9% 100 ml @ Per Protocol IV .Q0M [facility] Rx#:[id number] Milrinone-D5w Pmx 20 mg 100 In Dextrose/Water 1 100ml .bag @ Per Protocol IV . Q0M [facility] Rx#:[id number] Norepinephrine 4 mg In 202.457 254.602 61.481 Sodium Chloride 0.9% 250 ml @ 0.02 MCG/KG/MIN 6. 934 mls/hr IV .Q24H [facility] Rx#:[id number] Oral 50 Blood Product 0 Rc As-1 Unit 0 [id number] Output: Chest Tube Drainage 390 240 Chest Tube Left Lateral 210 110 Chest Chest Tube Mediastinal 50 Chest Tube Right Lateral 130 130 Chest Drainage 40 Left Calf 40 Urine 215 240 Other: Voiding Method Indwelling Catheter Indwelling Catheter ABP, PAP, CO, CI - Last Documented Arterial Blood Pressure 132/53 Pulmonary Artery Pressure 43/17 Cardiac Output 3 Cardiac Index 1.4 - Exam GENERAL: The patient is alert and oriented x3, not in any acute distress. Well developed, well nourished. HEENT: Pupils are round and equally reacting to light. EOMI. No scleral icterus. No conjunctival pallor. Normocephalic, atraumatic. No pharyngeal erythema. No thyromegaly. CARDIOVASCULAR: S1 and S2 present. No murmurs, rubs, or gallops. -PULMONARY: Chest is clear to auscultation, no wheezing . Bilateral basal crepitation ABDOMEN: Soft, nontender, nondistended, normoactive bowel sounds. No palpable organomegaly. MUSCULOSKELETAL: No joint swelling or deformity. -EXTREMITIES: No cyanosis, clubbing, . Bilateral pitting leg edema. NEUROLOGICAL: Gross neurological examination did not reveal any focal deficits. SKIN: No rashes. No petechiae - Labs CBC & Chem 7: 07/25/21 13:50 07/25/21 13:50 Labs: Abnormal Lab Results - Last 24 Hours (Table) 07/21/21 07/24/21 07/24/21 Range/Units 08:22 04:39 12:07 RBC (4.30-5.90) m/uL Hgb (13.0-17.5) gm/dL Hct (39.0-53.0) % Plt Count (150-450) k/uL Lymphocytes # (1.0-4.8) k/uL ABG pCO2 (35-45) mmHg ABG pO2 (83-108) mmHg ABG HCO3 (21-25) mmol/L ABG O2 Saturation (94-97) % ABG Lactic Acid (0.5-1.6) mmol/L VBG HCO3 (24-28) mmol/L Sodium (137-145) mmol/L Chloride (98-107) mmol/L Carbon Dioxide (22-30) mmol/L BUN (9-20) mg/dL Creatinine (0.66-1.25) mg/dL Glucose (74-99) mg/dL POC Glucose (mg/dL) 156 H (75-99) mg/dL Calcium (8.4-10.2) mg/dL Iron 23 L (65-175) ug/dL TIBC 162 L (228-460) ug/dL % Saturation 14.04 L (15.00-50.00) Transferrin 116.0 L (204.0-354.0) mg/dL AST (17-59) U/L ALT (4-49) U/L Total Protein (6.3-8.2) g/dL Albumin (3.5-5.0) g/dL Crossmatch See Detail 07/24/21 07/24/21 07/24/21 Range/Units 13:35 15:38 15:48 RBC (4.30-5.90) m/uL Hgb (13.0-17.5) gm/dL Hct (39.0-53.0) % Plt Count (150-450) k/uL Lymphocytes # (1.0-4.8) k/uL ABG pCO2 (35-45) mmHg ABG pO2 (83-108) mmHg ABG HCO3 (21-25) mmol/L ABG O2 Saturation (94-97) % ABG Lactic Acid (0.5-1.6) mmol/L VBG HCO3 21 L (24-28) mmol/L Sodium (137-145) mmol/L Chloride (98-107) mmol/L Carbon Dioxide (22-30) mmol/L BUN (9-20) mg/dL Creatinine (0.66-1.25) mg/dL Glucose (74-99) mg/dL POC Glucose (mg/dL) 182 H 182 H (75-99) mg/dL Calcium (8.4-10.2) mg/dL Iron (65-175) ug/dL TIBC (228-460) ug/dL % Saturation (15.00-50.00) Transferrin (204.0-354.0) mg/dL AST (17-59) U/L ALT (4-49) U/L Total Protein (6.3-8.2) g/dL Albumin (3.5-5.0) g/dL Crossmatch 07/24/21 07/24/21 07/24/21 Range/Units 18:24 19:06 19:13 RBC (4.30-5.90) m/uL Hgb (13.0-17.5) gm/dL Hct (39.0-53.0) % Plt Count (150-450) k/uL Lymphocytes # (1.0-4.8) k/uL ABG pCO2 (35-45) mmHg ABG pO2 21 L* (83-108) mmHg ABG HCO3 (21-25) mmol/L ABG O2 Saturation 31.0 L (94-97) % ABG Lactic Acid (0.5-1.6) mmol/L VBG HCO3 (24-28) mmol/L Sodium (137-145) mmol/L Chloride (98-107) mmol/L Carbon Dioxide (22-30) mmol/L BUN (9-20) mg/dL Creatinine (0.66-1.25) mg/dL Glucose (74-99) mg/dL POC Glucose (mg/dL) 109 H 102 H (75-99) mg/dL Calcium (8.4-10.2) mg/dL Iron (65-175) ug/dL TIBC (228-460) ug/dL % Saturation (15.00-50.00) Transferrin (204.0-354.0) mg/dL AST (17-59) U/L ALT (4-49) U/L Total Protein (6.3-8.2) g/dL Albumin (3.5-5.0) g/dL Crossmatch 07/24/21 07/24/21 07/24/21 Range/Units 19:53 19:55 21:08 RBC (4.30-5.90) m/uL Hgb (13.0-17.5) gm/dL Hct (39.0-53.0) % Plt Count (150-450) k/uL Lymphocytes # (1.0-4.8) k/uL ABG pCO2 (35-45) mmHg ABG pO2 (83-108) mmHg ABG HCO3 (21-25) mmol/L ABG O2 Saturation (94-97) % ABG Lactic Acid 1.8 H (0.5-1.6) mmol/L VBG HCO3 (24-28) mmol/L Sodium (137-145) mmol/L Chloride (98-107) mmol/L Carbon Dioxide (22-30) mmol/L BUN (9-20) mg/dL Creatinine (0.66-1.25) mg/dL Glucose (74-99) mg/dL POC Glucose (mg/dL) 103 H 111 H (75-99) mg/dL Calcium (8.4-10.2) mg/dL Iron (65-175) ug/dL TIBC (228-460) ug/dL % Saturation (15.00-50.00) Transferrin (204.0-354.0) mg/dL AST (17-59) U/L ALT (4-49) U/L Total Protein (6.3-8.2) g/dL Albumin (3.5-5.0) g/dL Crossmatch 07/24/21 07/24/21 07/25/21 Range/Units 21:49 22:48 00:02 RBC (4.30-5.90) m/uL Hgb (13.0-17.5) gm/dL Hct (39.0-53.0) % Plt Count (150-450) k/uL Lymphocytes # (1.0-4.8) k/uL ABG pCO2 (35-45) mmHg ABG pO2 (83-108) mmHg ABG HCO3 (21-25) mmol/L ABG O2 Saturation (94-97) % ABG Lactic Acid (0.5-1.6) mmol/L VBG HCO3 (24-28) mmol/L Sodium (137-145) mmol/L Chloride (98-107) mmol/L Carbon Dioxide (22-30) mmol/L BUN (9-20) mg/dL Creatinine (0.66-1.25) mg/dL Glucose (74-99) mg/dL POC Glucose (mg/dL) 134 H 133 H 131 H (75-99) mg/dL Calcium (8.4-10.2) mg/dL Iron (65-175) ug/dL TIBC (228-460) ug/dL % Saturation (15.00-50.00) Transferrin (204.0-354.0) mg/dL AST (17-59) U/L ALT (4-49) U/L Total Protein (6.3-8.2) g/dL Albumin (3.5-5.0) g/dL Crossmatch 07/25/21 07/25/21 07/25/21 Range/Units 01:46 02:54 04:14 RBC (4.30-5.90) m/uL Hgb (13.0-17.5) gm/dL Hct (39.0-53.0) % Plt Count (150-450) k/uL Lymphocytes # (1.0-4.8) k/uL ABG pCO2 (35-45) mmHg ABG pO2 (83-108) mmHg ABG HCO3 (21-25) mmol/L ABG O2 Saturation (94-97) % ABG Lactic Acid (0.5-1.6) mmol/L VBG HCO3 (24-28) mmol/L Sodium (137-145) mmol/L Chloride (98-107) mmol/L Carbon Dioxide (22-30) mmol/L BUN (9-20) mg/dL Creatinine (0.66-1.25) mg/dL Glucose (74-99) mg/dL POC Glucose (mg/dL) 109 H 119 H 124 H (75-99) mg/dL Calcium (8.4-10.2) mg/dL Iron (65-175) ug/dL TIBC (228-460) ug/dL % Saturation (15.00-50.00) Transferrin (204.0-354.0) mg/dL AST (17-59) U/L ALT (4-49) U/L Total Protein (6.3-8.2) g/dL Albumin (3.5-5.0) g/dL Crossmatch 07/25/21 07/25/21 07/25/21 Range/Units 04:20 04:20 05:15 RBC 2.72 L (4.30-5.90) m/uL Hgb 8.8 L (13.0-17.5) gm/dL Hct 26.6 L (39.0-53.0) % Plt Count 64 L (150-450) k/uL Lymphocytes # 0.7 L (1.0-4.8) k/uL ABG pCO2 (35-45) mmHg ABG pO2 (83-108) mmHg ABG HCO3 (21-25) mmol/L ABG O2 Saturation (94-97) % ABG Lactic Acid (0.5-1.6) mmol/L VBG HCO3 (24-28) mmol/L Sodium 136 L (137-145) mmol/L Chloride 110 H (98-107) mmol/L Carbon Dioxide 18 L (22-30) mmol/L BUN 37 H (9-20) mg/dL Creatinine 1.64 H (0.66-1.25) mg/dL Glucose 116 H (74-99) mg/dL POC Glucose (mg/dL) 121 H (75-99) mg/dL Calcium 8.0 L (8.4-10.2) mg/dL Iron (65-175) ug/dL TIBC (228-460) ug/dL % Saturation (15.00-50.00) Transferrin (204.0-354.0) mg/dL AST 840 H (17-59) U/L ALT 570 H (4-49) U/L Total Protein 4.8 L (6.3-8.2) g/dL Albumin 2.9 L (3.5-5.0) g/dL Crossmatch 07/25/21 07/25/21 07/25/21 Range/Units 06:50 07:23 07:26 RBC (4.30-5.90) m/uL Hgb (13.0-17.5) gm/dL Hct (39.0-53.0) % Plt Count (150-450) k/uL Lymphocytes # (1.0-4.8) k/uL ABG pCO2 (35-45) mmHg ABG pO2 24 L* (83-108) mmHg ABG HCO3 (21-25) mmol/L ABG O2 Saturation 36.7 L (94-97) % ABG Lactic Acid 2.1 H (0.5-1.6) mmol/L VBG HCO3 (24-28) mmol/L Sodium (137-145) mmol/L Chloride (98-107) mmol/L Carbon Dioxide (22-30) mmol/L BUN (9-20) mg/dL Creatinine (0.66-1.25) mg/dL Glucose (74-99) mg/dL POC Glucose (mg/dL) 117 H (75-99) mg/dL Calcium (8.4-10.2) mg/dL Iron (65-175) ug/dL TIBC (228-460) ug/dL % Saturation (15.00-50.00) Transferrin (204.0-354.0) mg/dL AST (17-59) U/L ALT (4-49) U/L Total Protein (6.3-8.2) g/dL Albumin (3.5-5.0) g/dL Crossmatch 07/25/21 07/25/21 07/25/21 Range/Units 07:47 08:00 08:05 RBC (4.30-5.90) m/uL Hgb (13.0-17.5) gm/dL Hct (39.0-53.0) % Plt Count (150-450) k/uL Lymphocytes # (1.0-4.8) k/uL ABG pCO2 30 L (35-45) mmHg ABG pO2 75 L (83-108) mmHg ABG HCO3 20 L (21-25) mmol/L ABG O2 Saturation (94-97) % ABG Lactic Acid (0.5-1.6) mmol/L VBG HCO3 (24-28) mmol/L Sodium (137-145) mmol/L Chloride (98-107) mmol/L Carbon Dioxide (22-30) mmol/L BUN (9-20) mg/dL Creatinine (0.66-1.25) mg/dL Glucose (74-99) mg/dL POC Glucose (mg/dL) 115 H (75-99) mg/dL Calcium (8.4-10.2) mg/dL Iron (65-175) ug/dL TIBC (228-460) ug/dL % Saturation (15.00-50.00) Transferrin (204.0-354.0) mg/dL AST (17-59) U/L ALT (4-49) U/L Total Protein (6.3-8.2) g/dL Albumin (3.5-5.0) g/dL Crossmatch See Detail Assessment and Plan Assessment: severe triple coronary artery diseas, status post multiple vessel CABG Severe aortic stenosis status post aortic valve replacement Acute systolic heart failure, , ischemic cardiomyopathy is suspected with ejection fraction of 30-35% None STEMI Acute kidney injury, suspected secondary to diuresis. On the top of his chronic kidney disease stage III Hypotension requiring pressors postoperatively Postoperative anemia requiring 1 unit of blood transfusion Sore throat, improved, coronavirus is negative Hyponatremia Diabetes mellitus, With hyperglycemia upon admission . Hemoglobin A1c is 8.6% Hypertension Hyperlipidemia Plan: this is a pleasant 75 years old male who presents with possible acute CHF and high troponin. Cardiothoracic surgery been consulted for CABG on 07/22 and aortic fall for placement on the same day Continue with pressors and monitor blood pressure Continue with aspirin and Plavix Keep monitoring glucose while keeping the patient on insulin Hold antihypertensive and metformin. Pulmonary/critical care consult Cardiology and nephrology team on the case Cardiology cardiology team recommend patient will need AICD open discharge Monitor hemoglobin Labs and medication were reviewed.. Continue same treatment. Continue with symptomatic treatment. Resume home medication. Monitor lytes and vitals. DVT and GI prophylaxis. Further recommendations depends on the clinical course of the patient DVT prophylaxis: Subcutaneous heparin GI Prophylaxis: Pepcid Prognosis is guarded
[2021-07-25 23:36] LABS: ABG Base Excess -0.3 mmol/L; ABG HCO3 23 mmol/L (21-25); ABG Oxygen Saturation 99.6 % (94-97); ABG PCO2 32 mmHg (35-45); ABG PH 7.47 (7.35-7.45); ABG PO2 158 mmHg (83-108); ABG TCO2 24 mmol/L (19-24)
[2021-07-25 23:38] LABS: Allen Test Performed? No
[2021-07-26 02:15] LABS: Glucose,Whole Blood 200 mg/dL (75-99)
[2021-07-26] MEDS: INSULIN ASPART (NovoLOG) 100 UNIT/ML VIAL SQ SCH ×5 (02:26→20:30)
[2021-07-26] MEDS: SODIUM CHLORIDE 0.9% 1,000 ML IV SCH ×2 (02:27→20:33)
[2021-07-26 04:49] LABS: HCT 27.8 % (39.0-53.0); HGB 9.6 gm/dL (13.0-17.5); MCH 32.8 pg (25.0-35.0); MCHC 34.5 g/dL (31.0-37.0); MCV 95.1 fL (80.0-100.0); Mean Platelet Volume 10.4; RBC 2.92 m/uL (4.30-5.90); RDW 15.2 % (11.5-15.5); WBC 7.1 k/uL (3.8-10.6)
[2021-07-26 05:01] LABS: Platelet Count 75 k/uL (150-450)
[2021-07-26 05:08] LABS: Albumin 2.6 g/dL (3.5-5.0); Calcium 7.7 mg/dL (8.4-10.2); Potassium 3.8 mmol/L (3.5-5.1); Total Bilirubin 1.5 mg/dL (0.2-1.3); Total Protein 4.5 g/dL (6.3-8.2)
[2021-07-26 06:51] LABS: Glucose,Whole Blood 144 mg/dL (75-99)
[2021-07-26] MEDS: MIDODRINE 5 MG TAB PO SCH ×3 (06:51→17:46)
[2021-07-26] MEDS: PANTOPRAZOLE 40 MG TABLET PO SCH (06:51)
[2021-07-26] MEDS ORDERED: POTASSIUM CHLORIDE ER 20 MEQ TAB.ER PO SCH (07:00)
[2021-07-26] MEDS: IPRATROPIUM-ALBUTEROL 3 ML NEB INHALATION SCH ×5 (07:14→20:12)
[2021-07-26] MEDS ORDERED: CALCIUM GLUCONATE 1 GM in SODIUM CHLORIDE 0.9% 100 ML IVPB ONE (07:34)
[2021-07-26] MEDS ORDERED: DEXTROSE 5% IN WATER 100 ML with AMIODARONE 150 MG IV ONE (07:36)
[2021-07-26] MEDS ORDERED: ACETAMINOPHEN TAB 325 MG TAB PO PRN (07:37)
[2021-07-26] MEDS: MILRINONE-D5W PMX 20 MG in DEXTROSE/WATER 1 100ML.BAG IV SCH ×2 (07:47→19:49)
[2021-07-26] MEDS: NOREPINEPHRINE 4 MG in SODIUM CHLORIDE 0.9% 250 ML IV SCH (07:47)
[2021-07-26] MEDS ORDERED: AMIODARONE IN DEXTROSE,ISO-OSM 150 MG/100 ML PLAST..BAG IV ONE (08:00)
--- NOTE | 2021-07-26 08:16 | XR ---
EXAMINATION TYPE: XR chest 1V DATE OF EXAM: 07/26/2021 COMPARISON: 07/25/2021 INDICATION: Post CABG TECHNIQUE: Single frontal view of the chest is obtained. FINDINGS: The heart size is moderately enlarged. The pulmonary vasculature is normal. Left lower lobe infiltrate is present. Left sided chest tube is present. No pneumothorax is evident. EKG leads overlie the chest. Sternotomy wires are present from prior cardiac surgery IMPRESSION: 1. Cardiomegaly. 2. Stable left-sided chest tube 3. Left lower lobe infiltrate appears stable
[2021-07-26 08:35] LABS: ABG Base Excess -0.8 mmol/L; ABG HCO3 23 mmol/L (21-25); ABG PCO2 32 mmHg (35-45); ABG PH 7.47 (7.35-7.45); ABG PO2 91 mmHg (83-108); ABG TCO2 24 mmol/L (19-24); Allen Test Performed? Yes
[2021-07-26 08:38] LABS: ABG Base Excess 1.4 mmol/L; ABG HCO3 26 mmol/L (21-25); ABG Oxygen Saturation 41.4 % (94-97); ABG PCO2 41 mmHg (35-45); ABG PH 7.41 (7.35-7.45); ABG TCO2 27 mmol/L (19-24)
[2021-07-26] MEDS: AMIODARONE 200 MG TAB PO SCH ×2 (08:41→20:31)
[2021-07-26] MEDS: ASPIRIN 81 MG PO SCH (08:41)
[2021-07-26 08:42] LABS: ABG PO2 26 mmHg (83-108); Allen Test Performed? no
[2021-07-26] MEDS: CLOPIDOGREL 75 MG TAB PO SCH (08:42)
[2021-07-26] MEDS: FONDAPARINUX 2.5 MG/0.5 ML SYRINGE SQ SCH (08:42)
--- NOTE | 2021-07-26 09:57 | P.PN ---
Subjective Progress Note Date: 07/26/21 Principal diagnosis: Triple-vessel coronary artery disease, non-STEMI and admission, moderate aortic valve stenosis, mild to moderate mitral valve regurgitation, acute systolic hea rt failure present on admission, ischemic cardiomyopathy, EF 30-35%, paroxysmal atrial fibrillation preoperatively, first-degree heart block, paroxysmal episodes of second-degree and complete heart block this admission, acute kidney injury, elevated CRP, pro-calcitonin on admission. Previous medical history of hypertension, hyperlipidemia, [id number] diabetes, lifetime nonsmoker, family history of heart disease, remains unvaccinated against covid. POD #4 triple-vessel coronary artery bypass grafting using the left internal mammary artery to the left anterior descending coronary artery, a reverse greater saphenous vein graft from the aorta to the second obtuse marginal coronary artery, and a reverse greater saphenous vein graft from the aorta to the third obtuse marginal coronary artery. Aortic valve replacement using a 23 mm pericardial bioprosthetic Inspiris. Bilateral pulmonary vein isolation using bipolar radiofrequency energy from Atricure, exclusion of the left atrial appendage using a 40 mm Atriclip, intraoperative transesophageal echocardiogram, epi-aortic scanning and graft flow measurements using the Medi-Stim system. Endoscopic harvesting of his left greater saphenous vein from the ankle to the groin, and his right greater saphenous vein from just below the knee to his groin. Postoperative acute blood loss anemia, expected given hemodilution and cardi opulmonary bypass. Hypotension, multifactorial, could be secondary to his ejection fraction of 30- 35%. Paroxysmal atrial fibrillation, a known common occurrence after cardiac surgery and expected due to his known preoperative atrial fibrillation. The patient was seen in follow-up today 07/26/2021 at his bedside in the intensive care unit. Currently he is sitting up to the bedside chair, is awake, alert and oriented 3. The patient reports this morning this is the best he is felt in days, and he denies any complaints of shortness of breath or pain at this time. He states that he does get a little intermittent pain with coughing to his left chest tube insertion site. Oxygen saturation are 97% on 2 L nasal cannula and he is achieving 4948-6845 mL on his incentive spirometry with encou ragement. Bedside telemetry is showing atrial fibrillation with some ST elevation in lead 2 with a heart rate of 108 BPM. Atrial and ventricular epicardial pacemaker wires remain in place and connected to back up to bedside pacemaker generator on an AAI of 90 BPM. Right IJ Cordis and Kathleen-Adalberto catheter remains in place with current hemodynamic showing a cardiac output of 4.1, cardiac index 1.9, PA pressures 44/9 and a CVP of 8 mmHg. Vasopressin drip remains infusing at 0.01 units per minute, norepinephrine drip is at 0.04 mcg/kg/m and his Primacor drip continues to infuse at 0.4 mcg/kg/m. Left pleural chest tube remains in place to low continuous wall suction -20 cm H2O. No air leak is present. Draining thin serosanguineous drainage with 40 mL output in the last 8 hours and 230 mL output in the last 24 hours. Laboratory results this morning show a WBC count 7.1, hemoglobin 9.6, hematocrit 27.8, platelet 75, sodium 134, potassium 3.8, BUN 50, creatinine 1.60, calcium 7.7, AST 264, ALT 385, and his venous lactic acid is 1.3 this morning. He has been afebrile the last 24 hours. Objective - Vital Signs Vital signs: Vital Signs Temp 98.6 F 07/25/21 12:15 Pulse 102 H 07/26/21 09:15 Resp 5 L 07/26/21 09:15 BP 100/75 07/26/21 09:15 Pulse Ox 97 07/26/21 09:15 Intake & Output 07/25/21 07/26/21 07/26/21 18:59 06:59 18:59 Intake Total 2625.055 927.404 203.278 Output Total 980 380 20 Balance 1645.055 547.404 183.278 Weight 103.1 kg Intake: IV 786.5 379 23 CARDIAC OUTPUT 0.9 Sodium 140 140 Chloride Calcium Gluconate 1 gm In 100 Sodium Chloride 0.9% 100 ml @ 100 mls/hr IVPB ONCE ONE Rx#:[id number] PRESSURE BAG 0.9 Sodium 117 39 3 Chloride Sodium Chloride 0.9% 1, 380 80 000 ml @ 20 mls/hr IV . Q24H BISHOP Rx#:[id number] Sodium Chloride 0.9% 50 49.5 120 20 ml @ 0.01 UNITS/MIN 1.53 mls/hr IVPB .Q24H [facility]OP with Vasopressin 20 unit Rx#:[id number] Intake, IV Titration 218.555 248.404 180.278 Amount Amiodarone 450 mg In 26.667 Dextrose 5% in Water 250 ml @ 0.5 MG/MIN 16.667 mls/hr IV .Q15H B[facility]OP Rx#: [id number] EPINEPHrine 4 mg In 21.807 Dextrose 5% in Water 250 ml @ 0.01 MCG/KG/MIN 3. 728 mls/hr IV .Q24H B[facility]OP Rx#:[id number] Insulin Regular 100 unit 24.467 In Sodium Chloride 0.9% 100 ml @ Per Protocol IV .Q0M B[facility]OP Rx#:[id number] Milrinone-D5w Pmx 20 mg 99.554 95.914 In Dextrose/Water 1 100ml .bag @ Per Protocol IV . Q0M B[facility]OP Rx#:[id number] Norepinephrine 4 mg In 145.614 148.850 84.364 Sodium Chloride 0.9% 250 ml @ 0.02 MCG/KG/MIN 6. 934 mls/hr IV .Q24H [facility]OP Rx#:[id number] Oral 1000 300 Blood Product 620 Rc As-1 Unit 310 [id number] Output: Chest Tube Drainage 240 40 Chest Tube Left Lateral 160 40 Chest Chest Tube Right Lateral 80 Chest Urine 740 340 20 Other: Voiding Method Indwelling Catheter Indwelling Catheter Indwelling Catheter # Bowel Movements 1 1 ABP, PAP, CO, CI - Last Documented Arterial Blood Pressure 121/49 Pulmonary Artery Pressure 31/23 Cardiac Output 4.1 Cardiac Index 1.9 - Exam CONSTITUTIONAL: Sitting up to the bedside chair in the intensive care unit, cooperative, oriented 3 and is in no apparent acute distress. HEENT: Neck is supple, no JVD, no lymphadenopathy. Right IJ Cordis and Kathleen- Adalberto catheter in place and functioning. RESPIRATORY: Lungs sounds essentially clear throughout, diminished to his bilateral base with few scattered crackles throughout. Respirations are symmetrical and nonlabored. Currently on 2 L nasal cannula with oxygen saturations 97%. Achieving 2083-3669 mL on his incentive spirometry up encouragement. Strong cough. CARDIOVASCULAR: Regular rhythm and rate. S1 and S2 present, negative for S3, gallop or murmur. Sternum is stable. Palpable peripheral pulses bilaterally, +1 edema to his bilateral lower extremities. No calf pain or tenderness noted. Heart hugger in place with patient demonstrating appropriate use. Knee-high YOU hose and sequential compression devices in place to his bilateral lower extremities. GASTROINTESTINAL: Abdomen soft, nontender, slightly distended. Active bowel sounds present 4 quadrants. Tolerating diet. No guarding or rigidity. GENITOURINARY: Nava present draining clear, yellow urine. Output 235 mL in the last 8 hours. INTEGUMENTARY: Skin is warm and dry with no evidence of clubbing or cyanosis. Midline sternal incision clean dry and well approximated, covered with dry intact dressing. Right and left lower extremity EVH sites well approximated without redness or drainage. NEUROLOGIC: Cranial nerves II through XII intact. No focal deficits. MUSKULOSKELETAL: Able to move all extremities, strength equal bilaterally, generalized weakness. PSYCHIATRIC: Alert and oriented 3. Intact judgment and insight. INVASIVE LINES AND TUBES: Left pleural chest tube present and connected to low continuous wall suction -20 cm H2O, no air leaks present. Left pleural chest tube with 40 mL of thin serosanguineous drainage overnight, 230 mL output in the last 24 hours. Atrial and ventricular epicardial pacemaker wires present, connected to backup bedside pacemaker generator, AAI rate 90 bpm. Right internal jugular Kathleen/Cordis, right radial arterial line present. Last CO 4.1, CI 1.9, PA 44/9 and CVP 8 mmHg. - Allied health notes Allied health notes reviewed: nursing - Labs CBC & Chem 7: 07/26/21 04:10 07/26/21 04:10 Labs: Abnormal Lab Results - Last 24 Hours (Table) 07/21/21 07/25/21 07/25/21 Range/Units 08:22 08:00 11:30 RBC (4.30-5.90) m/uL Hgb (13.0-17.5) gm/dL Hct (39.0-53.0) % Plt Count (150-450) k/uL ABG pH (7.35-7.45) ABG pCO2 (35-45) mmHg ABG pO2 (83-108) mmHg ABG HCO3 (21-25) mmol/L ABG Total CO2 (19-24) mmol/L ABG O2 Saturation (94-97) % Sodium (137-145) mmol/L Chloride (98-107) mmol/L Carbon Dioxide (22-30) mmol/L BUN (9-20) mg/dL Creatinine (0.66-1.25) mg/dL Glucose (74-99) mg/dL POC Glucose (mg/dL) 117 H (75-99) mg/dL Plasma Lactic Acid Loco (0.7-2.0) mmol/L Calcium (8.4-10.2) mg/dL Total Bilirubin (0.2-1.3) mg/dL AST (17-59) U/L ALT (4-49) U/L Total Protein (6.3-8.2) g/dL Albumin (3.5-5.0) g/dL Crossmatch See Detail See Detail 07/25/21 07/25/21 07/25/21 Range/Units 13:21 13:24 13:50 RBC 3.15 L (4.30-5.90) m/uL Hgb 10.2 L (13.0-17.5) gm/dL Hct 30.7 L (39.0-53.0) % Plt Count 62 L (150-450) k/uL ABG pH 7.32 L (7.35-7.45) ABG pCO2 26 L 32 L (35-45) mmHg ABG pO2 72 L 27 L* (83-108) mmHg ABG HCO3 14 L 17 L (21-25) mmol/L ABG Total CO2 15 L 18 L (19-24) mmol/L ABG O2 Saturation 93.9 L 43.0 L (94-97) % Sodium (137-145) mmol/L Chloride (98-107) mmol/L Carbon Dioxide (22-30) mmol/L BUN (9-20) mg/dL Creatinine (0.66-1.25) mg/dL Glucose (74-99) mg/dL POC Glucose (mg/dL) (75-99) mg/dL Plasma Lactic Acid Loco (0.7-2.0) mmol/L Calcium (8.4-10.2) mg/dL Total Bilirubin (0.2-1.3) mg/dL AST (17-59) U/L ALT (4-49) U/L Total Protein (6.3-8.2) g/dL Albumin (3.5-5.0) g/dL Crossmatch 07/25/21 07/25/21 07/25/21 Range/Units 13:50 13:50 15:35 RBC (4.30-5.90) m/uL Hgb (13.0-17.5) gm/dL Hct (39.0-53.0) % Plt Count (150-450) k/uL ABG pH (7.35-7.45) ABG pCO2 27 L (35-45) mmHg ABG pO2 129 H (83-108) mmHg ABG HCO3 17 L (21-25) mmol/L ABG Total CO2 17 L (19-24) mmol/L ABG O2 Saturation 99.4 H (94-97) % Sodium 134 L (137-145) mmol/L Chloride 108 H (98-107) mmol/L Carbon Dioxide 13 L (22-30) mmol/L BUN 41 H (9-20) mg/dL Creatinine 1.72 H (0.66-1.25) mg/dL Glucose 196 H (74-99) mg/dL POC Glucose (mg/dL) (75-99) mg/dL Plasma Lactic Acid Loco 3.2 H* (0.7-2.0) mmol/L Calcium 8.2 L (8.4-10.2) mg/dL Total Bilirubin 2.1 H (0.2-1.3) mg/dL AST 571 H (17-59) U/L ALT 497 H (4-49) U/L Total Protein 5.1 L (6.3-8.2) g/dL Albumin 3.0 L (3.5-5.0) g/dL Crossmatch 07/25/21 07/25/21 07/25/21 Range/Units 16:48 17:02 19:12 RBC (4.30-5.90) m/uL Hgb (13.0-17.5) gm/dL Hct (39.0-53.0) % Plt Count (150-450) k/uL ABG pH 7.46 H (7.35-7.45) ABG pCO2 27 L 29 L (35-45) mmHg ABG pO2 80 L 215 H (83-108) mmHg ABG HCO3 19 L 20 L (21-25) mmol/L ABG Total CO2 (19-24) mmol/L ABG O2 Saturation 99.9 H (94-97) % Sodium (137-145) mmol/L Chloride (98-107) mmol/L Carbon Dioxide (22-30) mmol/L BUN (9-20) mg/dL Creatinine (0.66-1.25) mg/dL Glucose (74-99) mg/dL POC Glucose (mg/dL) 247 H (75-99) mg/dL Plasma Lactic Acid Loco (0.7-2.0) mmol/L Calcium (8.4-10.2) mg/dL Total Bilirubin (0.2-1.3) mg/dL AST (17-59) U/L ALT (4-49) U/L Total Protein (6.3-8.2) g/dL Albumin (3.5-5.0) g/dL Crossmatch 07/25/21 07/25/21 07/26/21 Range/Units 20:18 23:32 02:13 RBC (4.30-5.90) m/uL Hgb (13.0-17.5) gm/dL Hct (39.0-53.0) % Plt Count (150-450) k/uL ABG pH 7.47 H (7.35-7.45) ABG pCO2 32 L (35-45) mmHg ABG pO2 158 H (83-108) mmHg ABG HCO3 (21-25) mmol/L ABG Total CO2 (19-24) mmol/L ABG O2 Saturation 99.6 H (94-97) % Sodium (137-145) mmol/L Chloride (98-107) mmol/L Carbon Dioxide (22-30) mmol/L BUN (9-20) mg/dL Creatinine (0.66-1.25) mg/dL Glucose (74-99) mg/dL POC Glucose (mg/dL) 255 H 200 H (75-99) mg/dL Plasma Lactic Acid Loco (0.7-2.0) mmol/L Calcium (8.4-10.2) mg/dL Total Bilirubin (0.2-1.3) mg/dL AST (17-59) U/L ALT (4-49) U/L Total Protein (6.3-8.2) g/dL Albumin (3.5-5.0) g/dL Crossmatch 07/26/21 07/26/21 07/26/21 Range/Units 04:10 04:10 06:44 RBC 2.92 L (4.30-5.90) m/uL Hgb 9.6 L (13.0-17.5) gm/dL Hct 27.8 L (39.0-53.0) % Plt Count 75 L (150-450) k/uL ABG pH (7.35-7.45) ABG pCO2 (35-45) mmHg ABG pO2 (83-108) mmHg ABG HCO3 (21-25) mmol/L ABG Total CO2 (19-24) mmol/L ABG O2 Saturation (94-97) % Sodium 134 L (137-145) mmol/L Chloride (98-107) mmol/L Carbon Dioxide (22-30) mmol/L BUN 50 H (9-20) mg/dL Creatinine 1.60 H (0.66-1.25) mg/dL Glucose 168 H (74-99) mg/dL POC Glucose (mg/dL) 144 H (75-99) mg/dL Plasma Lactic Acid Loco (0.7-2.0) mmol/L Calcium 7.7 L (8.4-10.2) mg/dL Total Bilirubin 1.5 H (0.2-1.3) mg/dL AST 264 H (17-59) U/L ALT 385 H (4-49) U/L Total Protein 4.5 L (6.3-8.2) g/dL Albumin 2.6 L (3.5-5.0) g/dL Crossmatch 07/26/21 07/26/21 Range/Units 08:32 08:36 RBC (4.30-5.90) m/uL Hgb (13.0-17.5) gm/dL Hct (39.0-53.0) % Plt Count (150-450) k/uL ABG pH 7.47 H (7.35-7.45) ABG pCO2 32 L (35-45) mmHg ABG pO2 26 L* (83-108) mmHg ABG HCO3 26 H (21-25) mmol/L ABG Total CO2 27 H (19-24) mmol/L ABG O2 Saturation 98.0 H 41.4 L (94-97) % Sodium (137-145) mmol/L Chloride (98-107) mmol/L Carbon Dioxide (22-30) mmol/L BUN (9-20) mg/dL Creatinine (0.66-1.25) mg/dL Glucose (74-99) mg/dL POC Glucose (mg/dL) (75-99) mg/dL Plasma Lactic Acid Loco (0.7-2.0) mmol/L Calcium (8.4-10.2) mg/dL Total Bilirubin (0.2-1.3) mg/dL AST (17-59) U/L ALT (4-49) U/L Total Protein (6.3-8.2) g/dL Albumin (3.5-5.0) g/dL Crossmatch - Imaging and Cardiology Chest x-ray: report reviewed, image reviewed Assessment and Plan Assessment: 1. Triple-vessel coronary artery disease, non-STEMI and admission, status post triple-vessel coronary artery bypass grafting surgery 2. Acute systolic heart failure present on admission, EF 30-35% 3. First-degree heart block, paroxysmal episodes of second-degree and complete heart block this admission 4. Preoperative paroxysmal atrial fibrillation, status post bilateral pulmonary vein isolation using bipolar radiofrequency energy from Atricure and exclusion of his left atrial appendage using a 40 mm Atriclip 5. Acute kidney injury 6. Elevated CRP, pro-calcitonin on admission 7. Aortic stenosis, status post aortic valve replacement using a 23 mm pericardial bioprosthetic Inspiris valve 8. History of hypertension 9. History of hyperlipidemia, treated, cholesterol 129, LDL 71 10. [id number] diabetes, hemoglobin A1c 8.6% 11. Lifetime nonsmoker, preoperative FEV1 72% of predicted 12. Family history of heart disease 13. Remains unvaccinated against covid 14. Postoperative acute blood loss anemia, expected given hemodilution and cardiopulmonary bypass 15. Hypotension, multifactorial, could be secondary to postoperative acute blood loss anemia and preoperative ejection fraction of 30-35% 16. Transaminitis, AST 571 and ALT 385 today, which are trending down Plan: 1. Continue low-dose aspirin and Plavix. Will continue to hold off on his beta jose raul this time due to episodes of bradycardia, first degree, second degree and complete heart block preoperatively. We will start beta jose raul when able to tolerate. 2. Continue to hold statin at this time due to his elevated liver enzymes. Once his liver enzymes are normalized we will restart his statin, liver enzymes are trending down. 3. Wean O2 as tolerated. Encourage incentive spirometry use 10 times every hour while awake. Bronchodilators per pulmonology/critical care medicine. 4. Increase activity, ambulate as tolerated. PT/OT/cardiac rehab following. 5. Will monitor daily labs and chest x-rays. Electrolyte replacement per protocol. Avoid nephrotoxic agents. 6. GI/DVT prophylaxis. 7. Insulin management per primary care service. The patient is a diabetic with a preoperative hemoglobin A1c of 8.6%. He will need tight glucose control to prevent sternal wound infection and promote healing. 8. Continue right IJ Cordis and Kathleen-Adalberto catheter with hemodynamic monitoring. Continue Primacor drip decreased to 0.3 micrograms per kilogram per minute. 9. Pain control with current medication regimen. 10. Discontinue vasopressin drip. 11. Keep the left pleural chest tube for another 24 hours to low continuous wall suction. 12. Continue Nava catheter for another 24 hours for strict accurate intake and output. 13. Continue to wean norepinephrine drip as tolerated to keep a mean arterial pressure of 70 or greater. 14. Continue atrial and ventricular epicardial pacemaker wires, keep pacemaker generator at an AAI of 90 BPM. 15. Send stat venous lactic acid. 16. Send mixed venous gases this and arterial blood gas now. 17. 1 g of calcium gluconate IV piggyback 1 now. 18. Hit panel results remain pending, continue to follow. We will start Arixtra 2.5 mg subcu daily. 19. Continue Midodrine 10 mg by mouth 3 times a day. 20. Amiodarone 150 mg IV piggyback 1 now over 10 minutes. 21. More recommendations to follow based on patient's clinical course. Time with Patient: Greater than 30
--- NOTE | 2021-07-26 10:16 | P.PN ---
Subjective Patient is seen in follow-up for acute kidney injury on chronic kidney disease. Renal function little better. Patient is on Levophed but off vasopressin and epinephrine. On oral amiodarone. Remains on Primacor. Sitting up in chair. Feels better today. Hemoglobin improved posttransfusion. Urine output about 30 mL an hour. Vital signs are stable. HEENT: On nasal cannula. LUNGS: Breath sounds decreased. Chest tubes noted. HEART: Rate and Rhythm are regular. ABDOMEN: Soft, no distention. EXTREMITITES: Trace edema. Objective - Vital Signs Vital signs: Vital Signs Temp 98.6 F 07/25/21 12:15 Pulse 87 07/26/21 10:00 Resp 15 07/26/21 10:00 BP 100/75 07/26/21 09:15 Pulse Ox 96 07/26/21 10:00 Intake & Output 07/25/21 07/26/21 07/26/21 18:59 06:59 18:59 Intake Total 2625.055 927.404 955.788 Output Total 980 380 210 Balance 1645.055 547.404 745.788 Weight 103.1 kg Intake: IV 786.5 379 245 CARDIAC OUTPUT 0.9 Sodium 140 140 20 Chloride Calcium Gluconate 1 gm In 100 100 Sodium Chloride 0.9% 100 ml @ 100 mls/hr IVPB ONCE ONE Rx#:[id number] PRESSURE BAG 0.9 Sodium 117 39 30 Chloride Sodium Chloride 0.9% 1, 380 80 75 000 ml @ 20 mls/hr IV . Q24H [facility] Rx#:[id number] Sodium Chloride 0.9% 50 49.5 120 20 ml @ 0.01 UNITS/MIN 1.53 mls/hr IVPB .Q24H [facility] with Vasopressin 20 unit Rx#:[id number] Intake, IV Titration 218.555 248.404 210.788 Amount Amiodarone 450 mg In 26.667 Dextrose 5% in Water 250 ml @ 0.5 MG/MIN 16.667 mls/hr IV .Q15H [facility] Rx#: [id number] EPINEPHrine 4 mg In 21.807 Dextrose 5% in Water 250 ml @ 0.01 MCG/KG/MIN 3. 728 mls/hr IV .Q24H [facility] Rx#:[id number] Insulin Regular 100 unit 24.467 In Sodium Chloride 0.9% 100 ml @ Per Protocol IV .Q0M [facility] Rx#:[id number] Milrinone-D5w Pmx 20 mg 99.554 95.914 In Dextrose/Water 1 100ml .bag @ Per Protocol IV . Q0M [facility] Rx#:[id number] Norepinephrine 4 mg In 145.614 148.850 114.874 Sodium Chloride 0.9% 250 ml @ 0.02 MCG/KG/MIN 6. 934 mls/hr IV .Q24H [facility] Rx#:[id number] Oral 1000 300 500 Blood Product 620 Rc As-1 Unit 310 [id number] Output: Chest Tube Drainage 240 40 100 Chest Tube Left Lateral 160 40 100 Chest Chest Tube Right Lateral 80 Chest Urine 740 340 110 Other: Voiding Method Indwelling Catheter Indwelling Catheter Indwelling Catheter # Bowel Movements 1 1 ABP, PAP, CO, CI - Last Documented Arterial Blood Pressure 80/47 Pulmonary Artery Pressure 28/18 Cardiac Output 4.1 Cardiac Index 1.9 - Labs CBC & Chem 7: 07/26/21 04:10 07/26/21 04:10 Labs: Abnormal Lab Results - Last 24 Hours (Table) 07/25/21 07/25/21 07/25/21 Range/Units 08:00 11:30 13:21 RBC (4.30-5.90) m/uL Hgb (13.0-17.5) gm/dL Hct (39.0-53.0) % Plt Count (150-450) k/uL ABG pH (7.35-7.45) ABG pCO2 26 L (35-45) mmHg ABG pO2 72 L (83-108) mmHg ABG HCO3 14 L (21-25) mmol/L ABG Total CO2 15 L (19-24) mmol/L ABG O2 Saturation 93.9 L (94-97) % Sodium (137-145) mmol/L Chloride (98-107) mmol/L Carbon Dioxide (22-30) mmol/L BUN (9-20) mg/dL Creatinine (0.66-1.25) mg/dL Glucose (74-99) mg/dL POC Glucose (mg/dL) 117 H (75-99) mg/dL Plasma Lactic Acid Loco (0.7-2.0) mmol/L Calcium (8.4-10.2) mg/dL Total Bilirubin (0.2-1.3) mg/dL AST (17-59) U/L ALT (4-49) U/L Total Protein (6.3-8.2) g/dL Albumin (3.5-5.0) g/dL Crossmatch See Detail 07/25/21 07/25/21 07/25/21 Range/Units 13:24 13:50 13:50 RBC 3.15 L (4.30-5.90) m/uL Hgb 10.2 L (13.0-17.5) gm/dL Hct 30.7 L (39.0-53.0) % Plt Count 62 L (150-450) k/uL ABG pH 7.32 L (7.35-7.45) ABG pCO2 32 L (35-45) mmHg ABG pO2 27 L* (83-108) mmHg ABG HCO3 17 L (21-25) mmol/L ABG Total CO2 18 L (19-24) mmol/L ABG O2 Saturation 43.0 L (94-97) % Sodium 134 L (137-145) mmol/L Chloride 108 H (98-107) mmol/L Carbon Dioxide 13 L (22-30) mmol/L BUN 41 H (9-20) mg/dL Creatinine 1.72 H (0.66-1.25) mg/dL Glucose 196 H (74-99) mg/dL POC Glucose (mg/dL) (75-99) mg/dL Plasma Lactic Acid Loco (0.7-2.0) mmol/L Calcium 8.2 L (8.4-10.2) mg/dL Total Bilirubin 2.1 H (0.2-1.3) mg/dL AST 571 H (17-59) U/L ALT 497 H (4-49) U/L Total Protein 5.1 L (6.3-8.2) g/dL Albumin 3.0 L (3.5-5.0) g/dL Crossmatch 07/25/21 07/25/21 07/25/21 Range/Units 13:50 15:35 16:48 RBC (4.30-5.90) m/uL Hgb (13.0-17.5) gm/dL Hct (39.0-53.0) % Plt Count (150-450) k/uL ABG pH (7.35-7.45) ABG pCO2 27 L (35-45) mmHg ABG pO2 129 H (83-108) mmHg ABG HCO3 17 L (21-25) mmol/L ABG Total CO2 17 L (19-24) mmol/L ABG O2 Saturation 99.4 H (94-97) % Sodium (137-145) mmol/L Chloride (98-107) mmol/L Carbon Dioxide (22-30) mmol/L BUN (9-20) mg/dL Creatinine (0.66-1.25) mg/dL Glucose (74-99) mg/dL POC Glucose (mg/dL) 247 H (75-99) mg/dL Plasma Lactic Acid Loco 3.2 H* (0.7-2.0) mmol/L Calcium (8.4-10.2) mg/dL Total Bilirubin (0.2-1.3) mg/dL AST (17-59) U/L ALT (4-49) U/L Total Protein (6.3-8.2) g/dL Albumin (3.5-5.0) g/dL Crossmatch 07/25/21 07/25/21 07/25/21 Range/Units 17:02 19:12 20:18 RBC (4.30-5.90) m/uL Hgb (13.0-17.5) gm/dL Hct (39.0-53.0) % Plt Count (150-450) k/uL ABG pH 7.46 H (7.35-7.45) ABG pCO2 27 L 29 L (35-45) mmHg ABG pO2 80 L 215 H (83-108) mmHg ABG HCO3 19 L 20 L (21-25) mmol/L ABG Total CO2 (19-24) mmol/L ABG O2 Saturation 99.9 H (94-97) % Sodium (137-145) mmol/L Chloride (98-107) mmol/L Carbon Dioxide (22-30) mmol/L BUN (9-20) mg/dL Creatinine (0.66-1.25) mg/dL Glucose (74-99) mg/dL POC Glucose (mg/dL) 255 H (75-99) mg/dL Plasma Lactic Acid Loco (0.7-2.0) mmol/L Calcium (8.4-10.2) mg/dL Total Bilirubin (0.2-1.3) mg/dL AST (17-59) U/L ALT (4-49) U/L Total Protein (6.3-8.2) g/dL Albumin (3.5-5.0) g/dL Crossmatch 07/25/21 07/26/21 07/26/21 Range/Units 23:32 02:13 04:10 RBC 2.92 L (4.30-5.90) m/uL Hgb 9.6 L (13.0-17.5) gm/dL Hct 27.8 L (39.0-53.0) % Plt Count 75 L (150-450) k/uL ABG pH 7.47 H (7.35-7.45) ABG pCO2 32 L (35-45) mmHg ABG pO2 158 H (83-108) mmHg ABG HCO3 (21-25) mmol/L ABG Total CO2 (19-24) mmol/L ABG O2 Saturation 99.6 H (94-97) % Sodium (137-145) mmol/L Chloride (98-107) mmol/L Carbon Dioxide (22-30) mmol/L BUN (9-20) mg/dL Creatinine (0.66-1.25) mg/dL Glucose (74-99) mg/dL POC Glucose (mg/dL) 200 H (75-99) mg/dL Plasma Lactic Acid Loco (0.7-2.0) mmol/L Calcium (8.4-10.2) mg/dL Total Bilirubin (0.2-1.3) mg/dL AST (17-59) U/L ALT (4-49) U/L Total Protein (6.3-8.2) g/dL Albumin (3.5-5.0) g/dL Crossmatch 07/26/21 07/26/21 07/26/21 Range/Units 04:10 06:44 08:32 RBC (4.30-5.90) m/uL Hgb (13.0-17.5) gm/dL Hct (39.0-53.0) % Plt Count (150-450) k/uL ABG pH 7.47 H (7.35-7.45) ABG pCO2 32 L (35-45) mmHg ABG pO2 (83-108) mmHg ABG HCO3 (21-25) mmol/L ABG Total CO2 (19-24) mmol/L ABG O2 Saturation 98.0 H (94-97) % Sodium 134 L (137-145) mmol/L Chloride (98-107) mmol/L Carbon Dioxide (22-30) mmol/L BUN 50 H (9-20) mg/dL Creatinine 1.60 H (0.66-1.25) mg/dL Glucose 168 H (74-99) mg/dL POC Glucose (mg/dL) 144 H (75-99) mg/dL Plasma Lactic Acid Loco (0.7-2.0) mmol/L Calcium 7.7 L (8.4-10.2) mg/dL Total Bilirubin 1.5 H (0.2-1.3) mg/dL AST 264 H (17-59) U/L ALT 385 H (4-49) U/L Total Protein 4.5 L (6.3-8.2) g/dL Albumin 2.6 L (3.5-5.0) g/dL Crossmatch 07/26/21 Range/Units 08:36 RBC (4.30-5.90) m/uL Hgb (13.0-17.5) gm/dL Hct (39.0-53.0) % Plt Count (150-450) k/uL ABG pH (7.35-7.45) ABG pCO2 (35-45) mmHg ABG pO2 26 L* (83-108) mmHg ABG HCO3 26 H (21-25) mmol/L ABG Total CO2 27 H (19-24) mmol/L ABG O2 Saturation 41.4 L (94-97) % Sodium (137-145) mmol/L Chloride (98-107) mmol/L Carbon Dioxide (22-30) mmol/L BUN (9-20) mg/dL Creatinine (0.66-1.25) mg/dL Glucose (74-99) mg/dL POC Glucose (mg/dL) (75-99) mg/dL Plasma Lactic Acid Loco (0.7-2.0) mmol/L Calcium (8.4-10.2) mg/dL Total Bilirubin (0.2-1.3) mg/dL AST (17-59) U/L ALT (4-49) U/L Total Protein (6.3-8.2) g/dL Albumin (3.5-5.0) g/dL Crossmatch Assessment and Plan Plan: Assessment: 1. Acute kidney injury secondary to ATN status post CABG. Creatinine stable at 1.6 today. 2. Chronic kidney disease stage III a baseline creatinine in the range of 1-1.2 secondary to nephrosclerosis. UA benign. No evidence of hydronephrosis noted on kidney ultrasound. 3. A. fib with RVR maintained on oral amiodarone. 4. Acute blood loss anemia post blood transfusions this admission. 5. Coronary artery disease status post CABG on 07/22/2021. 6. Metabolic acidosis secondary to acute kidney injury. Partially compensatory for respiratory alkalosis. Improved. 7. Volume overload. Improved. 8. Acute systolic heart failure with ejection fraction of 30-35%. 9. Hypotension due to underlying cardiac status, primacor, and anemia. On vasopressors. Also on midodrine. Plan: Add Aranesp. Avoid nephrotoxins. Continue to monitor renal function and urine output. If urine output drops, will repeat IV Lasix. Wean vasopressors.
--- NOTE | 2021-07-26 10:50 | P.PN ---
Subjective Progress Note Date: 07/26/21 Patient is a 75-year-old male postop day 4 of a triple vessel coronary artery bypass grafting and bioprosthesis aortic valve replacement. He is known history of coronary artery disease, ischemic cardiomyopathy, congestive heart failure, hyperlipidemia, hypertension, diabetes. He is seen today resting in the chair awake and alert. He has mild pedal edema. He reports mild surgery pain and denies chest pain, palpitations, dizziness, dyspnea. Patient's echocardiogram yesterday revealed a moderate pericardial effusion located near the left ventricle and an impaired ejection fraction of 25-30%. Hypotension has improved. Patient remains on levo and Milrinone. He remains in atrial fibrillation and paced on the monitor. He has been switched from IV amiodarone to by mouth. Anticoagulation remains on hold due to thrombocytopenia. Patient's blood pressure is 101/45, heart rate 115 respirations 15, 96% on room air, afebrile. Patient continues on aspirin 81 mg daily, Plavix 75 mg daily midodrine 10 mg 3 times a day, PO amiodarone 400 mg BID, Milrinone, levo. DIAGNOSTICS: Telemetry shows patient in atrial fibrillation with a controlled ventricle response and atrial paced Echocardiogram shows severely impaired left ventricular systolic function with an ejection fraction of 25-30%, moderate pericardial effusion located near the left ventricle Chest x-ray showed cardiomegaly, stable left-sided chest tube, stable left lower lobe infiltrate Labs reviewedhemoglobin 9.6 platelet 75, sodium 134, BUNs 50, creatinine 1.6, potassium 3.8 Objective - Vital Signs Vital signs: Vital Signs Temp 98.6 F 07/25/21 12:15 Pulse 87 07/26/21 10:00 Resp 15 07/26/21 10:00 BP 100/75 07/26/21 09:15 Pulse Ox 96 07/26/21 10:00 Intake & Output 07/25/21 07/26/21 07/26/21 18:59 06:59 18:59 Intake Total 2625.055 927.404 955.788 Output Total 980 380 210 Balance 1645.055 547.404 745.788 Weight 103.1 kg Intake: IV 786.5 379 245 CARDIAC OUTPUT 0.9 Sodium 140 140 20 Chloride Calcium Gluconate 1 gm In 100 100 Sodium Chloride 0.9% 100 ml @ 100 mls/hr IVPB ONCE ONE Rx#:[id number] PRESSURE BAG 0.9 Sodium 117 39 30 Chloride Sodium Chloride 0.9% 1, 380 80 75 000 ml @ 20 mls/hr IV . Q24H [facility] Rx#:[id number] Sodium Chloride 0.9% 50 49.5 120 20 ml @ 0.01 UNITS/MIN 1.53 mls/hr IVPB .Q24H [facility] with Vasopressin 20 unit Rx#:[id number] Intake, IV Titration 218.555 248.404 210.788 Amount Amiodarone 450 mg In 26.667 Dextrose 5% in Water 250 ml @ 0.5 MG/MIN 16.667 mls/hr IV .Q15H [facility] Rx#: [id number] EPINEPHrine 4 mg In 21.807 Dextrose 5% in Water 250 ml @ 0.01 MCG/KG/MIN 3. 728 mls/hr IV .Q24H [facility] Rx#:[id number] Insulin Regular 100 unit 24.467 In Sodium Chloride 0.9% 100 ml @ Per Protocol IV .Q0M [facility] Rx#:[id number] Milrinone-D5w Pmx 20 mg 99.554 95.914 In Dextrose/Water 1 100ml .bag @ Per Protocol IV . Q0M [facility] Rx#:[id number] Norepinephrine 4 mg In 145.614 148.850 114.874 Sodium Chloride 0.9% 250 ml @ 0.02 MCG/KG/MIN 6. 934 mls/hr IV .Q24H [facility] Rx#:[id number] Oral 1000 300 500 Blood Product 620 Rc As-1 Unit 310 [id number] Output: Chest Tube Drainage 240 40 100 Chest Tube Left Lateral 160 40 100 Chest Chest Tube Right Lateral 80 Chest Urine 740 340 110 Other: Voiding Method Indwelling Catheter Indwelling Catheter Indwelling Catheter # Bowel Movements 1 1 ABP, PAP, CO, CI - Last Documented Arterial Blood Pressure 80/47 Pulmonary Artery Pressure 28/18 Cardiac Output 4.1 Cardiac Index 1.9 - Exam PHYSICAL EXAM: VITAL SIGNS: Reviewed. GENERAL: Well-developed in no acute distress. HEENT: Head is normocephalic. Pupils are equal, round. Sclerae anicteric. Mucous membranes of the mouth are moist. NECK: Supple. No JVD or thyromegaly RESPIRATORY: Respirations even and unlabored. Lungs diminished to auscultation bilaterally. CARDIO: irregular rate and rhythm. S1 and S2 heard. No murmur or gallops. EXTREMITIES: Normal range of motion. No clubbing or cyanosis. Peripheral pulses intact. mild bilateral pedal edema NEURO: Orientated to person, time, mood is appropriate - Labs CBC & Chem 7: 07/26/21 04:10 07/26/21 04:10 Labs: Abnormal Lab Results - Last 24 Hours (Table) 07/25/21 07/25/21 07/25/21 Range/Units 08:00 11:30 13:21 RBC (4.30-5.90) m/uL Hgb (13.0-17.5) gm/dL Hct (39.0-53.0) % Plt Count (150-450) k/uL ABG pH (7.35-7.45) ABG pCO2 26 L (35-45) mmHg ABG pO2 72 L (83-108) mmHg ABG HCO3 14 L (21-25) mmol/L ABG Total CO2 15 L (19-24) mmol/L ABG O2 Saturation 93.9 L (94-97) % Sodium (137-145) mmol/L Chloride (98-107) mmol/L Carbon Dioxide (22-30) mmol/L BUN (9-20) mg/dL Creatinine (0.66-1.25) mg/dL Glucose (74-99) mg/dL POC Glucose (mg/dL) 117 H (75-99) mg/dL Plasma Lactic Acid Loco (0.7-2.0) mmol/L Calcium (8.4-10.2) mg/dL Total Bilirubin (0.2-1.3) mg/dL AST (17-59) U/L ALT (4-49) U/L Total Protein (6.3-8.2) g/dL Albumin (3.5-5.0) g/dL Crossmatch See Detail 07/25/21 07/25/21 07/25/21 Range/Units 13:24 13:50 13:50 RBC 3.15 L (4.30-5.90) m/uL Hgb 10.2 L (13.0-17.5) gm/dL Hct 30.7 L (39.0-53.0) % Plt Count 62 L (150-450) k/uL ABG pH 7.32 L (7.35-7.45) ABG pCO2 32 L (35-45) mmHg ABG pO2 27 L* (83-108) mmHg ABG HCO3 17 L (21-25) mmol/L ABG Total CO2 18 L (19-24) mmol/L ABG O2 Saturation 43.0 L (94-97) % Sodium 134 L (137-145) mmol/L Chloride 108 H (98-107) mmol/L Carbon Dioxide 13 L (22-30) mmol/L BUN 41 H (9-20) mg/dL Creatinine 1.72 H (0.66-1.25) mg/dL Glucose 196 H (74-99) mg/dL POC Glucose (mg/dL) (75-99) mg/dL Plasma Lactic Acid Loco (0.7-2.0) mmol/L Calcium 8.2 L (8.4-10.2) mg/dL Total Bilirubin 2.1 H (0.2-1.3) mg/dL AST 571 H (17-59) U/L ALT 497 H (4-49) U/L Total Protein 5.1 L (6.3-8.2) g/dL Albumin 3.0 L (3.5-5.0) g/dL Crossmatch 07/25/21 07/25/21 07/25/21 Range/Units 13:50 15:35 16:48 RBC (4.30-5.90) m/uL Hgb (13.0-17.5) gm/dL Hct (39.0-53.0) % Plt Count (150-450) k/uL ABG pH (7.35-7.45) ABG pCO2 27 L (35-45) mmHg ABG pO2 129 H (83-108) mmHg ABG HCO3 17 L (21-25) mmol/L ABG Total CO2 17 L (19-24) mmol/L ABG O2 Saturation 99.4 H (94-97) % Sodium (137-145) mmol/L Chloride (98-107) mmol/L Carbon Dioxide (22-30) mmol/L BUN (9-20) mg/dL Creatinine (0.66-1.25) mg/dL Glucose (74-99) mg/dL POC Glucose (mg/dL) 247 H (75-99) mg/dL Plasma Lactic Acid Loco 3.2 H* (0.7-2.0) mmol/L Calcium (8.4-10.2) mg/dL Total Bilirubin (0.2-1.3) mg/dL AST (17-59) U/L ALT (4-49) U/L Total Protein (6.3-8.2) g/dL Albumin (3.5-5.0) g/dL Crossmatch 07/25/21 07/25/21 07/25/21 Range/Units 17:02 19:12 20:18 RBC (4.30-5.90) m/uL Hgb (13.0-17.5) gm/dL Hct (39.0-53.0) % Plt Count (150-450) k/uL ABG pH 7.46 H (7.35-7.45) ABG pCO2 27 L 29 L (35-45) mmHg ABG pO2 80 L 215 H (83-108) mmHg ABG HCO3 19 L 20 L (21-25) mmol/L ABG Total CO2 (19-24) mmol/L ABG O2 Saturation 99.9 H (94-97) % Sodium (137-145) mmol/L Chloride (98-107) mmol/L Carbon Dioxide (22-30) mmol/L BUN (9-20) mg/dL Creatinine (0.66-1.25) mg/dL Glucose (74-99) mg/dL POC Glucose (mg/dL) 255 H (75-99) mg/dL Plasma Lactic Acid Loco (0.7-2.0) mmol/L Calcium (8.4-10.2) mg/dL Total Bilirubin (0.2-1.3) mg/dL AST (17-59) U/L ALT (4-49) U/L Total Protein (6.3-8.2) g/dL Albumin (3.5-5.0) g/dL Crossmatch 07/25/21 07/26/21 07/26/21 Range/Units 23:32 02:13 04:10 RBC 2.92 L (4.30-5.90) m/uL Hgb 9.6 L (13.0-17.5) gm/dL Hct 27.8 L (39.0-53.0) % Plt Count 75 L (150-450) k/uL ABG pH 7.47 H (7.35-7.45) ABG pCO2 32 L (35-45) mmHg ABG pO2 158 H (83-108) mmHg ABG HCO3 (21-25) mmol/L ABG Total CO2 (19-24) mmol/L ABG O2 Saturation 99.6 H (94-97) % Sodium (137-145) mmol/L Chloride (98-107) mmol/L Carbon Dioxide (22-30) mmol/L BUN (9-20) mg/dL Creatinine (0.66-1.25) mg/dL Glucose (74-99) mg/dL POC Glucose (mg/dL) 200 H (75-99) mg/dL Plasma Lactic Acid Loco (0.7-2.0) mmol/L Calcium (8.4-10.2) mg/dL Total Bilirubin (0.2-1.3) mg/dL AST (17-59) U/L ALT (4-49) U/L Total Protein (6.3-8.2) g/dL Albumin (3.5-5.0) g/dL Crossmatch 07/26/21 07/26/21 07/26/21 Range/Units 04:10 06:44 08:32 RBC (4.30-5.90) m/uL Hgb (13.0-17.5) gm/dL Hct (39.0-53.0) % Plt Count (150-450) k/uL ABG pH 7.47 H (7.35-7.45) ABG pCO2 32 L (35-45) mmHg ABG pO2 (83-108) mmHg ABG HCO3 (21-25) mmol/L ABG Total CO2 (19-24) mmol/L ABG O2 Saturation 98.0 H (94-97) % Sodium 134 L (137-145) mmol/L Chloride (98-107) mmol/L Carbon Dioxide (22-30) mmol/L BUN 50 H (9-20) mg/dL Creatinine 1.60 H (0.66-1.25) mg/dL Glucose 168 H (74-99) mg/dL POC Glucose (mg/dL) 144 H (75-99) mg/dL Plasma Lactic Acid Loco (0.7-2.0) mmol/L Calcium 7.7 L (8.4-10.2) mg/dL Total Bilirubin 1.5 H (0.2-1.3) mg/dL AST 264 H (17-59) U/L ALT 385 H (4-49) U/L Total Protein 4.5 L (6.3-8.2) g/dL Albumin 2.6 L (3.5-5.0) g/dL Crossmatch 07/26/21 Range/Units 08:36 RBC (4.30-5.90) m/uL Hgb (13.0-17.5) gm/dL Hct (39.0-53.0) % Plt Count (150-450) k/uL ABG pH (7.35-7.45) ABG pCO2 (35-45) mmHg ABG pO2 26 L* (83-108) mmHg ABG HCO3 26 H (21-25) mmol/L ABG Total CO2 27 H (19-24) mmol/L ABG O2 Saturation 41.4 L (94-97) % Sodium (137-145) mmol/L Chloride (98-107) mmol/L Carbon Dioxide (22-30) mmol/L BUN (9-20) mg/dL Creatinine (0.66-1.25) mg/dL Glucose (74-99) mg/dL POC Glucose (mg/dL) (75-99) mg/dL Plasma Lactic Acid Loco (0.7-2.0) mmol/L Calcium (8.4-10.2) mg/dL Total Bilirubin (0.2-1.3) mg/dL AST (17-59) U/L ALT (4-49) U/L Total Protein (6.3-8.2) g/dL Albumin (3.5-5.0) g/dL Crossmatch Assessment and Plan Assessment: Multivessel coronary artery disease status post three-vessel CABG Aortic valve insufficiency status post aortic valve replacement Pericardial effusion without cardiac tamponade Ischemic cardiomyopathy Congestive heart failure with reduced LV systolic function Hypotension Persistent Atrial fibrillation with a controlled ventricular response Thrombocytopenia Plan: Continue to titrate pressors as tolerated by blood pressure Continue to monitor thrombocytopenia, will restart anticoagulation when thrombocythemia improves Continue dual antiplatelet therapy Continue with current all cardiac medications Continue with telemetry monitoring Further recommendations based on clinical course. The above impression and plan of care have been discussed and directed by the signing physician. Praveena Dowling, nurse practitioner, acting as scribe for signing physician.
[2021-07-26 11:58] LABS: Glucose,Whole Blood 111 mg/dL (75-99)
[2021-07-26] MEDS: DARBEPOETIN ALFA 40 MCG/0.4 ML SYRINGE SQ SCH (11:59)
--- NOTE | 2021-07-26 12:06 | P.PN ---
Subjective Progress Note Date: 07/26/21 On 07/22/2021, patient is seen in intensive care unit following his surgery, patient had a aortic valve replacement with the #23 is parous pericardial bioprosthetic valve, and a three-vessel coronary artery bypass grafting with BAIN to the LAD, SVG to the OM 2 and OM 3, left atrial appendage ligation. Tomasz lopez just arrived to the intensive care unit, intubated, and sedated, on assist-control mode of ventilation with a rate of 16, tidal volume of 500 FiO2 of sent and PEEP of 10. She is currently on 0.9 normal saline at a rate of 50 ML per hour, he is on norepinephrine at 9 mics per minute, vasopressin at 0.02 units/min, primacore at 0.3 mics per kilo per minute, Diprivan and is at 10 mics per kilo per minute. Hemodynamically patient is currently being paced at AAI mode with a rate of 80. Currently blood pressure is 139/48, PA pressures 31/20, CVP is 14, cardiac output is 4.2, cardiac index is 2.0. Patient has 4 chest tubes and mediastinal, 1 right pleural and one left pleural chest tubes, mediastinal chest tubes are connected to the same Pleur-evac, and there is 200 mL of serosanguineous output, left pleural chest tube has 140 mL of sanguinous output and a chest tube with 140 mL of sanguinous output. No air leak. Catheter is in place, and patient is making adequate urine output. Chest x-ray has been reviewed, tube to low intermittent suction. The patient is seen today 07/23/2021 in follow-up in the intensive care unit. This is postoperative day #1 of a triple vessel coronary artery bypass grafting using the BAIN to the LAD, reverse saphenous vein graft to the second obtuse marginal, third obtuse marginal. Aortic valve replacement using a 23 mm pericardial bioprosthetic Inspiris. He was successfully extubated at 10:15 last evening. Currently on 4 L high flow nasal cannula to maintain O2 saturation in the mid 90s. Chest x-ray showing interval development of mild pulmonary vascular congestion and a probable small bilateral effusions. He is sitting up in a chair at the bedside. He is arousable. He drifts off easily. He is oriented 1 to person. Somewhat slow to respond. Very weak. He did have hypotension postoperatively with some acute blood loss anemia. His ejection fraction is 30-35%. He is currently requiring norepinephrine at 0.14 g per kilogram per minute. He is on vasopressin at 0.03 units per minute. Primacor at 0.03 mcg/kg/m. Right IJ Cordis and Huddleston skin catheter in place. Current cardiac output 4.6. Cardiac index 2.2. PA pressures 39/15 with a CVP of 14. He is on insulin drip at 4 units per hour. 0.9% normal saline at 50 MLS per hour. He is currently in an atrial paced rhythm at 80 bpm. Pacer wires in place. Mediastinal, right and left pleural chest tubes remain in place. Urine output is adequate. White count 6.3. Hemoglobin 7.3. Platelets 108. Sodium 136. Potassium 5.0. Bicarb 20. BUN 22. Creatinine 1.62. Blood glucose 127. AST 568. ALT 343. Arterial blood gases revealed a pO2 of 84, P CO2 of 30 and a pH of 7.43. He is continued on heparin subcu for DVT prophylaxis. Protonix for GI prophylaxis. On 07/24/2021, the patient is sitting up on a chair. He is postop day #2 following coronary artery bypass surgery and aortic valve replacement. The patient was extubated and he is currently on oxygen by nasal cannula at 2 L. They did use BiPAP on and off post extubation. He was briefly placed on BiPAP yesterday and currently is on 2 L of oxygen by nasal cannula. He is using incentive spirometer. He is weak. His still lethargic. He is not confused. He is moving all 4 extremities without any limitation. The chest x-ray from today is showing adequate expansion of both lungs. Chest tubes are still in place. Some atelectatic changes in the lung bases bilaterally. No evidence of any pneumothorax. [place]-Adalberto catheter remains in a good location. Meanwhile, the patient remains on a combination of inotropes. He is on milrinone running at 0.3 back to respiratory kilogram per minute and he is also on vasopressin at 0.02 units an hour/minutes and he is also on norepinephrine infusion at 0.04 mcg/kg per minute. His cardiac output is at 4.2 with an index of 2. Pulmonary artery pressures of 43/22. Chest tubes are in place. The patient has 2 mediastinal and 1 left pleural chest tube. Output was noted. The output is in order of less than 100 mL over the past shift and there is no evidence of any air leak. The patient's cardiac rhythm is a atrial fibrillation, slightly tachycardic and the patient is going to be started on amiodarone drip. In terms of his other work, the patient had developed an acute kidney injury. Creatinine was up to 1.6. Today's creatinine is still at 1.6 with a BUN of 26. Sodium is at 140, potassium is at 4.6. White cell count is at 7.3 with a hemoglobin of 9.1 and platelet count of 85. Liver function tests are on the rise. ALT is up to 1133 and AST is up to 497. Insulin drip is still running at the rate of 5 units an hour. On 07/25/2021 patient seen in follow-up in the intensive care unit. Today is postoperative day #3, status post aortic valve replacement surgery, and three- vessel coronary artery bypass grafting with a BAIN to the LAD, SVG to the OM 2 and OM 3 and the left atrial appendage ligation. Patient is awake and alert, he is currently up in the recliner, he is mildly short of breath, does not appear to be in acute distress, he did wear BiPAP support during the day yesterday, and last night with pressures of 12 and 5 and FiO2 of 40%. He is currently on 2 L of oxygen. He remains on multiple drips including epinephrine at 0.02 mics per kilo per minute, milrinone remains a 0.4 mics per kilo per minute, amiodarone is a 0.5 mg/m, norepinephrine at 0.05 mics per kilo per minute, 0.9 normal saline at 50 ML per hour, vasopressin at 0.03 units per kilo per hour, and he is currently receiving a blood transfusion which is infusing at 200 mL on hour. His A. fib is currently slightly better controlled although he still mildly tachycardic at rate of 116 BPM, his blood pressure is 121/55, his PA pressure is 41/23, his CVP is 18, his cardiac output is 5.5 and cardiac index is 2.6. His been afebrile, today's chest x-ray has been reviewed showing persistent cardiomegaly with left greater than right bibasilar infiltrates and/or atelectasis and small left pleural effusion without significant change from one day earlier. He is awake and alert, oriented 3, he is answering to questions appropriately, he is still having some surgical incisional discomfort, his pain rating is 6 out of 10. On oral medications for pain control, incentive spirometry effort is 750 mL. Urine output is in the order of 10-30 ML per hour. Today's labs have been reviewed why blood cell count is 10.0, hemoglobin is 10.2, sodium is 134, potassium is 5.1, chloride is 108, CO2 is 13, anion gap was 13, BUN is 41, creatinine is 1.72, lactic acid today was 3.2, calcium was 8.2, total bilirubin was 2.1, AST was 571, ALT was 497, LFTs are improved. On 07/26/2021 patient is seen in follow-up in intensive care unit, he is awake and alert, in no acute distress, he is currently sitting up in the recliner, breathing comfortably, he is on 2 L of oxygen, he did wear BiPAP support overnight with pressures of 12 and 5 and FiO2 of 35%, and his pulse ox has been in the high 90s between 97-98%, patient has been afebrile, denies worsening dyspnea, his incentive spirometry effort is 750 ML. His right-sided chest tube has been removed, and mediastinal chest tubes have been removed, he only has one left pleural chest tube left in place. There has been 200 mL out of the left pleural chest tube in the last 24 hours. Today's chest x-ray shows cardiomegaly, and stable left lower lobe infiltrate, stable in appearance. Patient remains on vasopressors and inotropes, however vasopressin has been discontinued, and epinephrine drip has been discontinued, patient is currently on norepinephrine at 0.04 mics per kilo per minute which is less than he was on yesterday, and Primacor has also been decreased down to 0.3 mics per kilo per minute, his 0.9 normal saline at a rate of 25 ML per hour, he was given amiodarone bolus this morning, his drip has been discontinued, and patient has been switched to oral amiodarone. He was started on Arixtra for anti- coagulation. He remains in atrial fibrillation with the better controlled rate at 98 BPM. His cardiac output this morning is 4.1, and cardiac index is 1.9. His CVP is 7, his blood pressure is 95/44, his PA pressures 27/15. Patient received a dose of IV Lasix yesterday per nephrology and a history of urine output in the last 24 hours was 1360, however overall he is in positive net fluid balance of 2.2 L over the last 24 hours. Mild swelling in his upper and lower extremities. His creatinine is fairly stable, slightly improved, nephrology is following. Objective - Vital Signs Vital signs: Vital Signs Temp 98.6 F 07/25/21 12:15 Pulse 90 07/26/21 11:30 Resp 30 H 07/26/21 11:30 BP 100/75 07/26/21 09:15 Pulse Ox 94 L 07/26/21 11:30 Intake & Output 07/25/21 07/26/21 07/26/21 18:59 06:59 18:59 Intake Total 2625.055 927.404 955.788 Output Total 980 380 210 Balance 1645.055 547.404 745.788 Weight 103.1 kg Intake: IV 786.5 379 245 CARDIAC OUTPUT 0.9 Sodium 140 140 20 Chloride Calcium Gluconate 1 gm In 100 100 Sodium Chloride 0.9% 100 ml @ 100 mls/hr IVPB ONCE ONE Rx#:[id number] PRESSURE BAG 0.9 Sodium 117 39 30 Chloride Sodium Chloride 0.9% 1, 380 80 75 000 ml @ 20 mls/hr IV . Q24H [facility] Rx#:[id number] Sodium Chloride 0.9% 50 49.5 120 20 ml @ 0.01 UNITS/MIN 1.53 mls/hr IVPB .Q24H [facility] with Vasopressin 20 unit Rx#:[id number] Intake, IV Titration 218.555 248.404 210.788 Amount Amiodarone 450 mg In 26.667 Dextrose 5% in Water 250 ml @ 0.5 MG/MIN 16.667 mls/hr IV .Q15H [facility] Rx#: [id number] EPINEPHrine 4 mg In 21.807 Dextrose 5% in Water 250 ml @ 0.01 MCG/KG/MIN 3. 728 mls/hr IV .Q24H [facility] Rx#:[id number] Insulin Regular 100 unit 24.467 In Sodium Chloride 0.9% 100 ml @ Per Protocol IV .Q0M [facility] Rx#:[id number] Milrinone-D5w Pmx 20 mg 99.554 95.914 In Dextrose/Water 1 100ml .bag @ Per Protocol IV . Q0M [facility] Rx#:[id number] Norepinephrine 4 mg In 145.614 148.850 114.874 Sodium Chloride 0.9% 250 ml @ 0.02 MCG/KG/MIN 6. 934 mls/hr IV .Q24H [facility] Rx#:[id number] Oral 1000 300 500 Blood Product 620 Rc As-1 Unit 310 [id number] Output: Chest Tube Drainage 240 40 100 Chest Tube Left Lateral 160 40 100 Chest Chest Tube Right Lateral 80 Chest Urine 740 340 110 Other: Voiding Method Indwelling Catheter Indwelling Catheter Indwelling Catheter # Bowel Movements 1 1 ABP, PAP, CO, CI - Last Documented Arterial Blood Pressure 111/53 Pulmonary Artery Pressure 28/18 Cardiac Output 4.1 Cardiac Index 1.9 - Exam GENERAL EXAM: Awake and alert, mild short of breath, 75-year-old white gentleman, on 2 L of oxygen, sitting in the recliner. patient has been wearing intermittent BiPAP support with pressures of 12 and 5 and FiO2 of 35% at bedtime and as needed during the day, his dyspnea seems to have improved, patient is breathing more comfortably on today's exam HEAD: Normocephalic/atraumatic. EYES: Normal reaction of pupils, equal size. Conjunctiva pink, sclera white. NOSE: Clear with pink turbinates. THROAT: No erythema or exudates. NECK: No masses, no JVD, no thyroid enlargement, no adenopathy. CHEST: No chest wall deformity. Symmetrical expansion. 2 chest tubes, 2 MS chest tubes have been discontinued, right pleural chest tube has been discontinued yesterday and left pleural chest tubes, no airleak, moderate sanguineous output LUNGS: Equal air entry with no crackles, wheeze, rhonchi or dullness. CVS: Regular rate and rhythm, normal S1 and S2, no gallops, no murmurs, no rubs ABDOMEN: Soft, nontender. No hepatosplenomegaly, normal bowel sounds, no guarding or rigidity. EXTREMITIES: No clubbing, mild edema in upper and lower extremities, no cyanosis, 2+ pulses and upper and lower extremities. MUSCULOSKELETAL: Muscle strength and tone normal. SPINE: No scoliosis or deformity SKIN: No rashes CENTRAL NERVOUS SYSTEM: awake and oriented 3 No focal deficits, tone is normal in all 4 extremities. - Labs CBC & Chem 7: 07/26/21 04:10 07/26/21 04:10 Labs: Abnormal Lab Results - Last 24 Hours (Table) 07/25/21 07/25/21 07/25/21 Range/Units 08:00 13:21 13:24 RBC (4.30-5.90) m/uL Hgb (13.0-17.5) gm/dL Hct (39.0-53.0) % Plt Count (150-450) k/uL ABG pH 7.32 L (7.35-7.45) ABG pCO2 26 L 32 L (35-45) mmHg ABG pO2 72 L 27 L* (83-108) mmHg ABG HCO3 14 L 17 L (21-25) mmol/L ABG Total CO2 15 L 18 L (19-24) mmol/L ABG O2 Saturation 93.9 L 43.0 L (94-97) % Sodium (137-145) mmol/L Chloride (98-107) mmol/L Carbon Dioxide (22-30) mmol/L BUN (9-20) mg/dL Creatinine (0.66-1.25) mg/dL Glucose (74-99) mg/dL POC Glucose (mg/dL) (75-99) mg/dL Plasma Lactic Acid Loco (0.7-2.0) mmol/L Calcium (8.4-10.2) mg/dL Total Bilirubin (0.2-1.3) mg/dL AST (17-59) U/L ALT (4-49) U/L Total Protein (6.3-8.2) g/dL Albumin (3.5-5.0) g/dL Crossmatch See Detail 07/25/21 07/25/21 07/25/21 Range/Units 13:50 13:50 13:50 RBC 3.15 L (4.30-5.90) m/uL Hgb 10.2 L (13.0-17.5) gm/dL Hct 30.7 L (39.0-53.0) % Plt Count 62 L (150-450) k/uL ABG pH (7.35-7.45) ABG pCO2 (35-45) mmHg ABG pO2 (83-108) mmHg ABG HCO3 (21-25) mmol/L ABG Total CO2 (19-24) mmol/L ABG O2 Saturation (94-97) % Sodium 134 L (137-145) mmol/L Chloride 108 H (98-107) mmol/L Carbon Dioxide 13 L (22-30) mmol/L BUN 41 H (9-20) mg/dL Creatinine 1.72 H (0.66-1.25) mg/dL Glucose 196 H (74-99) mg/dL POC Glucose (mg/dL) (75-99) mg/dL Plasma Lactic Acid Loco 3.2 H* (0.7-2.0) mmol/L Calcium 8.2 L (8.4-10.2) mg/dL Total Bilirubin 2.1 H (0.2-1.3) mg/dL AST 571 H (17-59) U/L ALT 497 H (4-49) U/L Total Protein 5.1 L (6.3-8.2) g/dL Albumin 3.0 L (3.5-5.0) g/dL Crossmatch 07/25/21 07/25/21 07/25/21 Range/Units 15:35 16:48 17:02 RBC (4.30-5.90) m/uL Hgb (13.0-17.5) gm/dL Hct (39.0-53.0) % Plt Count (150-450) k/uL ABG pH 7.46 H (7.35-7.45) ABG pCO2 27 L 27 L (35-45) mmHg ABG pO2 129 H 80 L (83-108) mmHg ABG HCO3 17 L 19 L (21-25) mmol/L ABG Total CO2 17 L (19-24) mmol/L ABG O2 Saturation 99.4 H (94-97) % Sodium (137-145) mmol/L Chloride (98-107) mmol/L Carbon Dioxide (22-30) mmol/L BUN (9-20) mg/dL Creatinine (0.66-1.25) mg/dL Glucose (74-99) mg/dL POC Glucose (mg/dL) 247 H (75-99) mg/dL Plasma Lactic Acid Loco (0.7-2.0) mmol/L Calcium (8.4-10.2) mg/dL Total Bilirubin (0.2-1.3) mg/dL AST (17-59) U/L ALT (4-49) U/L Total Protein (6.3-8.2) g/dL Albumin (3.5-5.0) g/dL Crossmatch 07/25/21 07/25/21 07/25/21 Range/Units 19:12 20:18 23:32 RBC (4.30-5.90) m/uL Hgb (13.0-17.5) gm/dL Hct (39.0-53.0) % Plt Count (150-450) k/uL ABG pH 7.47 H (7.35-7.45) ABG pCO2 29 L 32 L (35-45) mmHg ABG pO2 215 H 158 H (83-108) mmHg ABG HCO3 20 L (21-25) mmol/L ABG Total CO2 (19-24) mmol/L ABG O2 Saturation 99.9 H 99.6 H (94-97) % Sodium (137-145) mmol/L Chloride (98-107) mmol/L Carbon Dioxide (22-30) mmol/L BUN (9-20) mg/dL Creatinine (0.66-1.25) mg/dL Glucose (74-99) mg/dL POC Glucose (mg/dL) 255 H (75-99) mg/dL Plasma Lactic Acid Loco (0.7-2.0) mmol/L Calcium (8.4-10.2) mg/dL Total Bilirubin (0.2-1.3) mg/dL AST (17-59) U/L ALT (4-49) U/L Total Protein (6.3-8.2) g/dL Albumin (3.5-5.0) g/dL Crossmatch 07/26/21 07/26/21 07/26/21 Range/Units 02:13 04:10 04:10 RBC 2.92 L (4.30-5.90) m/uL Hgb 9.6 L (13.0-17.5) gm/dL Hct 27.8 L (39.0-53.0) % Plt Count 75 L (150-450) k/uL ABG pH (7.35-7.45) ABG pCO2 (35-45) mmHg ABG pO2 (83-108) mmHg ABG HCO3 (21-25) mmol/L ABG Total CO2 (19-24) mmol/L ABG O2 Saturation (94-97) % Sodium 134 L (137-145) mmol/L Chloride (98-107) mmol/L Carbon Dioxide (22-30) mmol/L BUN 50 H (9-20) mg/dL Creatinine 1.60 H (0.66-1.25) mg/dL Glucose 168 H (74-99) mg/dL POC Glucose (mg/dL) 200 H (75-99) mg/dL Plasma Lactic Acid Loco (0.7-2.0) mmol/L Calcium 7.7 L (8.4-10.2) mg/dL Total Bilirubin 1.5 H (0.2-1.3) mg/dL AST 264 H (17-59) U/L ALT 385 H (4-49) U/L Total Protein 4.5 L (6.3-8.2) g/dL Albumin 2.6 L (3.5-5.0) g/dL Crossmatch 07/26/21 07/26/21 07/26/21 Range/Units 06:44 08:32 08:36 RBC (4.30-5.90) m/uL Hgb (13.0-17.5) gm/dL Hct (39.0-53.0) % Plt Count (150-450) k/uL ABG pH 7.47 H (7.35-7.45) ABG pCO2 32 L (35-45) mmHg ABG pO2 26 L* (83-108) mmHg ABG HCO3 26 H (21-25) mmol/L ABG Total CO2 27 H (19-24) mmol/L ABG O2 Saturation 98.0 H 41.4 L (94-97) % Sodium (137-145) mmol/L Chloride (98-107) mmol/L Carbon Dioxide (22-30) mmol/L BUN (9-20) mg/dL Creatinine (0.66-1.25) mg/dL Glucose (74-99) mg/dL POC Glucose (mg/dL) 144 H (75-99) mg/dL Plasma Lactic Acid Loco (0.7-2.0) mmol/L Calcium (8.4-10.2) mg/dL Total Bilirubin (0.2-1.3) mg/dL AST (17-59) U/L ALT (4-49) U/L Total Protein (6.3-8.2) g/dL Albumin (3.5-5.0) g/dL Crossmatch Assessment and Plan Plan: Assessment: #1. Acute non-ST segment elevated myocardial infarction and multivessel coronary artery disease and severe aortic valve stenosis, status post three- vessel coronary artery bypass grafting with BAIN to the LAD, SVG to the OM 2 and OM 3, and aortic valve replacement on 07/22/2021, patient remains in the intensive care unit, today it is postoperative day #3 on 07/25/2021, continues on multiple drips and inotropes for hemodynamic support. Cardiac output and index are improved on multiple drips and inotropes. Patient has developed an acute kidney injury and shock liver. Currently remains on low-dose norepinephrine, epinephrine, milrinone and vasopressin. #2. Routine postoperative ventilator management, patient was successfully weaned and extubated on postoperative day #0, currently requiring on and off BiPAP support and nasal cannula with 2 L of oxygen and chest x-ray showing cardiomegaly with left greater than right bibasilar infiltrates and atelectasis small left pleural effusion. #3. Acute systolic congestive heart failure with an ejection fraction of 30- 35%. His preop CT chest showed bilateral pleural effusions with cardiomegaly #4. Hypotension, multifactorial, related to postoperative bleeding, and poor ejection fraction, improving currently on small dose of vasopressors in the form of norepinephrine at 0.04 mcg/kg/min mics per minute, vasopressin and epinephrin have been weaned off, and Primacor at 0.3 #5. Acute hypoxic respiratory failure secondary to pulmonary edema. His preop FEV1 was 72% of predicted. Patient was successfully weaned and extubated on postoperative day #0, however he is requiring on and off BiPAP support with FiO2 of 40% #6. Hypertension #7. Hyperlipidemia #8. Diabetes mellitus type 2 #9. Acute kidney injury likely cardiorenal and his kidney function has been closely monitored #10. Shock liver, improving #11. Acute blood loss anemia, expected outcome of surgery, patient has received 3 units of packed red blood cells current hemoglobin is 10.2, #12. New onset A. fib with rapid ventricular response currently on oral amio, rate is better controlled Plan: Today's chest x-ray has been reviewed showing stable small left lower lobe infiltrate, stable in appearance Patient is breathing easier today, hemodynamically he is improved, he is off vasopressin and epinephrine drip remains on norepinephrine and Primacor, and both are being weaned down Today's labs have been noted, renal function slightly improved, LFTs are improving Remains in A. fib with the better controlled rate Mentation is appropriate, patient is awake and alert, responding appropriately Left-sided chest tube is the only remaining chest tube in place Diuretics per nephrology and CT surgery Continue with BiPAP support at bedtime and as needed during the day Continue to follow his clinical course closely I performed a history & physical examination of the patient and discussed their management with my nurse practitioner, Marilu Jiménez. I reviewed the nurse practitioner's note and agree with the documented findings and plan of care. Lung sounds are positive for diffuse wheezes throughout the lung martins. The findings and the impression was discussed with the patient. I attest to the documentation by the nurse practitioner. Time with Patient: Less than 30
--- NOTE | 2021-07-26 15:20 | XR ---
EXAMINATION TYPE: XR chest 1V portable DATE OF EXAM: 07/26/2021 COMPARISON: 07/26/2021 HISTORY: Postop CABG TECHNIQUE: Single frontal view of the chest is obtained. FINDINGS: Left-sided chest tube is seen and there is bilateral infiltrate and small effusion. Postop erative change. Cardiomegaly and [place]-Adalberto catheter are stable. No sizable pneumothorax. Arthropathy of the shoulders. IMPRESSION: 1. Postsurgical change with bilateral atelectasis favored over pneumonia and small bilateral pleural effusions. 2. No sizable pneumothorax.
[2021-07-26 15:26] LABS: ABG HCO3 25 mmol/L (21-25); ABG Oxygen Saturation 43.3 % (94-97); ABG PCO2 40 mmHg (35-45); ABG TCO2 26 mmol/L (19-24); Allen Test Performed? Yes
[2021-07-26 15:29] LABS: ABG PO2 26 mmHg (83-108)
[2021-07-26 16:58] LABS: Glucose,Whole Blood 106 mg/dL (75-99)
[2021-07-26 20:13] LABS: Glucose,Whole Blood 208 mg/dL (75-99)
[2021-07-26] MEDS: SENNOSIDES-DOCUSATE SODIUM 1 EACH TAB PO SCH (20:31)
[2021-07-27 01:24] LABS: Glucose,Whole Blood 85 mg/dL (75-99)
[2021-07-27] MEDS: INSULIN ASPART (NovoLOG) 100 UNIT/ML VIAL SQ SCH ×5 (01:27→20:36)
[2021-07-27] MEDS: NOREPINEPHRINE 4 MG in SODIUM CHLORIDE 0.9% 250 ML IV SCH (01:39)
[2021-07-27 05:36] LABS: Basophils % (A) 0 %; Eosinophils # (A) 0.1 k/uL (0-0.7); Eosinophils % (A) 2 %; HCT 29.6 % (39.0-53.0); HGB 9.8 gm/dL (13.0-17.5); Lymphocytes # (A) 0.7 k/uL (1.0-4.8); Lymphocytes % (A) 10 %; MCH 32.1 pg (25.0-35.0); MCHC 33.2 g/dL (31.0-37.0); MCV 96.7 fL (80.0-100.0); Mean Platelet Volume 9.1; Monocytes # (A) 0.7 k/uL (0-1.0); Monocytes % (A) 9 %; Neutrophils # (A) 5.3 k/uL (1.3-7.7); Neutrophils % (A) 76 %; RBC 3.06 m/uL (4.30-5.90); RDW 15.6 % (11.5-15.5)
[2021-07-27 05:41] LABS: Platelet Count 76 k/uL (150-450)
[2021-07-27 05:57] LABS: Albumin 2.4 g/dL (3.5-5.0); Calcium 7.6 mg/dL (8.4-10.2); Potassium 3.8 mmol/L (3.5-5.1); Total Bilirubin 1.5 mg/dL (0.2-1.3); Total Protein 4.6 g/dL (6.3-8.2)
[2021-07-27 06:05] LABS: ABG Base Excess -0.7 mmol/L; ABG HCO3 23 mmol/L (21-25); ABG Oxygen Saturation 98.3 % (94-97); ABG PCO2 33 mmHg (35-45); ABG PH 7.45 (7.35-7.45); ABG PO2 96 mmHg (83-108); ABG TCO2 24 mmol/L (19-24); Allen Test Performed? Yes
[2021-07-27 06:18] LABS: VBG PH 7.4 (7.31-7.41)
[2021-07-27 07:01] LABS: Glucose,Whole Blood 132 mg/dL (75-99)
[2021-07-27] MEDS: PANTOPRAZOLE 40 MG TABLET PO SCH (07:04)
[2021-07-27] MEDS: MIDODRINE 5 MG TAB PO SCH ×3 (07:04→16:52)
--- NOTE | 2021-07-27 08:01 | P.PN ---
Subjective This is a pleasant 75 years old male with past medical history of Diabetes Mellitus, Hyperlipidemia, Hypertension Patient presents because of the progressive exertional dyspnea and decreased leg swelling over one month, bilateral leg swelling and bilateral neck pain. However yesterday he started getting orthopnea, he could not lay down and his w talita asked him to come to emergency room. Also patient is complaining of from dry cough and sore throat, mouth is making some clear phlegm. He denies chest pain or abdominal pain. No dizziness. He was complaining of from little diarrhea, he felt almost going to vomit this morning but did not. No urinary complaints. No weakness or numbness He denies smoking, alcohol or illicit drugs Vitals are stable and he is saturating 96% on room air. Labs were reviewed including unremarkable CBC except for mild lymphopenia at 0.7, INR is 1.0. Sodium is 124, carbon dioxide 17, creatinine 1.1, glucose 220 Liver enzymes not elevated. Troponin is high as 0.418, C-reactive protein 2.0. ProBNP is 4880 Coronavirus not detected. EKG showing normal sinus rhythm at 85 with first-degree AV block and incomplete right bundle branch block, no significant ST-T changes. Chest x-ray: Interstitial pulmonary edema with increased cardiomegaly In the emergency room patient was started on IV Lasix 40 mg every 8 hours and cardiology team were consulted. 07/17/2021 Patient breathing is better, he does not complain from jaw pain or neck pain anymore, he is breathing easier, less leg edema. Patient is continued on IV Lasix 40 mg twice daily, also he is on heparin drip His sodium is improved today to 1.7 however his creatinine went up to 1.4. Because of his worsening kidney function we hold his metformin and switch him to Amaryl 2 mg daily, patient informed of his uncontrolled diabetes as his hemoglobin A1c is a 42.6%. Echocardiogram showed ejection fraction of 30-35% with moderate mitral regurgitation, 2018 8 was 55-60% Patient possibly will go for cardiac cath tomorrow 07/18/2021 Patient feels better, his breathing is easier. He has no more jaw pain, leg swelling is significantly improved he has crepitationandonlyminimal. He has some wheezing during examination most likely secondary to his CHF, patient is nonsmoker with no history of COPD. He is hemodynamically stable, he is on room air. Creatinine is trending up 1.1, 1.4, and 1.58 today. However sodium significantly improved up to 133. His Lasix was switched to 40 mg by mouth daily. His glucose is controlled 136 and 142 after he was started on Amaryl today we will keep monitoring, metformin was held for his acute kidney injury. He has slight ejection fraction of 30-35% with moderate MR and he needs cardiac cath however it is on hold now to further evaluation for his kidney injury, most likely secondary to diuresis, nephrology team was consulted, renal ultrasound is pending. 81 mg 07/19/2021 Patient breathing is improved close to normal however he has some residual basal crepitation which is mild. Very minimal leg swelling. No much exertional dyspnea. And his diuretics are switched to oral dose again Lasix 40 mg daily His creatinine improved 1.3 from 1.8 yesterday. Glucose less than 150. After switching his metformin and to Amaryl 2 mg daily. Hemoglobin A1c is 8.6% Plan for him to go for cardiac cath today. Renal ultrasound showing no hydronephrosis. Tenderness on home dose of aspirin 81 mg, oral Lasix and metoprolol 07/20/2021 Today with minimal dyspnea however he still have bilateral basal crepitation and leg edema, he is saturating 95-96% on 2 L oxygen via nasal cannula. His creatinine slightly up to 1.5. Glucose controlled. Renal ultrasound showing no hydronephrosis. Cardiac cath yesterday showing severe triple coronary artery disease, referred to thoracic surgery been consulted for possible CABG 07/21/2021 Patient currently sitting in bed looks comfortable, no chest pain, no significant dyspnea. Using his incentive spirometry frequently. He is currently kept on heparin drip. Minimal leg swelling, mild basal crepitation. He is hemodynamically stable. He is saturating 97% on 2 L oxygen via nasal cannula. His sodium 132, creatinine improved to 1.28, glucose controlled while he is on Amaryl 2 mg. His metformin, metoprolol and lisinopril are on hold for hypertension acute kidney injury. Patient currently has been worked up for possible cardiac bypass surgery with cardiovascular surgery team on the case. 07/22/2021 Patient is going for cardiac bypass surgery today. This with no chest pain or dyspnea. Hemodynamically stable. Glucose controlled however it might be needed to be started on insulin drip. Most likely patient will go to the intensive care unit post procedure. We will follow up with him 07/23/2021 Patient status post multiple vessel coronary artery bypass grafting for severe triple coronary artery disease and aortic valve replacement for severe aortic stenosis and today is postop day #1. Patient was sitting in chair, awake but very drowsy however he is able to follow commands with minimal movement. Because of his generalized weakness. Patient has hypotension that required pressors in the form of vasodepressor at 0.03 and levophed at 0.14. Also he has some low-grade temperature at 100.9. He is tachypneic at 29, oxygen saturation and requirements is at 4 L/m. He developed postoperative hyperkalemia at 6.3, corrected with 10 units of insulin and D50 ample down to 5.1. He has drop of hemoglobin down to 7.3 and he is getting 1 unit of blood transfusion. Platelet count 108. Sodium is 132, creatinine 1.6 which is close to baseline as he has chronic kidney disease. Never enzymes significantly elevated with AST 568 and ALT 343. Chest x-ray showing no mild pulmonary vascular congestion and receives one-time dose of IV Lasix 20 mg Also he is on insulin drip while metformin and Amaryl are on hold. Blood pressure medication of metoprolol and lisinopril were held prior to surgery because of hypotension and acute kidney injury. Patient currently kept on home dose of aspirin 81 mg and added Mavik 75 mg 07/24/2021 Patient sitting in chair, his mentation improving today and he follows commands with no difficulty moving her arms or legs but he looks very tired and lethargic. Blood pressure is 93/74. Heart rate is around 70. He had no fever today and his respiratory rate is 24-28 and his oxygen saturation is acceptable and 2 L/m of oxygen. His sodium is 140, creatinine stable at 1.6 but liver enzymes trending up to 1133 and AST and ALT is still up about 497. Glucose controlled on insulin drip. He received one unit of blood transfusion in hemoglobin went up 7.38 to 9.1. Platelets 85K. Lipase is normal at 7.3. Chest x-ray showing postsurgical changes and chest tubes are unchanged in position while there is decrease in vascular congestion. His pO2 was one and he is currently on BiPAP with FiO2 of 40%. He remains on amiodarone drip which is added for new onset A. fib. Also his continued on aspirin 81 mg which is home dose and added Plavix in the hospital. 07/25/2021 Patient remains monitored closely in the ICU under critical condition, he is very lethargic but awake and follow commands. His blood pressure is 108/59 and 80/40. That needs pressors. Heart rate is 94. Labs reviewed showing AST is 571 which is improving and ALT fourth 97. Glucose is controlled but around 200. Bilirubin is elevated at 2.1. Her hemoglobin is stable at 10.2. Platelet to 62K and white BC is 10 K. Chest x-ray showing no change with cardiomegaly and bibasilar infiltrates. Ejection fraction is still low at 25-30%. Patient remains on many risks are slightly renal. He is on aspirin and Plavix. And antihypertensive medications are on hold.. 07/26/2021 Patient looks less distressed today sitting in chair most of the time, minimal chest pain. Chest tubes in a Place. His blood pressure is 160/50, heart rate 94, sodium 134, creatinine 1.6. ast 264 and alt 385. bilirubin improved 2.1 down to 1.5. glucose is controlled. hemoglobin 9.6, platelet count 76. chest x-ray showing cardiomegaly with a stable chest tube on the left side and left lower lobe infiltrate stable as well. patient today is a started on fondaparinux, also he is on aspirin and plavix, he needed amiodarone. Objective - Vital Signs Vital signs: Vital Signs Temp 98.6 F 07/25/21 12:15 Pulse 87 07/26/21 10:00 Resp 15 07/26/21 10:00 BP 100/75 07/26/21 09:15 Pulse Ox 96 07/26/21 10:00 Intake & Output 07/25/21 07/26/21 07/26/21 18:59 06:59 18:59 Intake Total 2625.055 927.404 955.788 Output Total 980 380 210 Balance 1645.055 547.404 745.788 Weight 103.1 kg Intake: IV 786.5 379 245 CARDIAC OUTPUT 0.9 Sodium 140 140 20 Chloride Calcium Gluconate 1 gm In 100 100 Sodium Chloride 0.9% 100 ml @ 100 mls/hr IVPB ONCE ONE Rx#:[id number] PRESSURE BAG 0.9 Sodium 117 39 30 Chloride Sodium Chloride 0.9% 1, 380 80 75 000 ml @ 20 mls/hr IV . Q24H [facility] Rx#:[id number] Sodium Chloride 0.9% 50 49.5 120 20 ml @ 0.01 UNITS/MIN 1.53 mls/hr IVPB .Q24H [facility] with Vasopressin 20 unit Rx#:[id number] Intake, IV Titration 218.555 248.404 210.788 Amount Amiodarone 450 mg In 26.667 Dextrose 5% in Water 250 ml @ 0.5 MG/MIN 16.667 mls/hr IV .Q15H [facility] Rx#: [id number] EPINEPHrine 4 mg In 21.807 Dextrose 5% in Water 250 ml @ 0.01 MCG/KG/MIN 3. 728 mls/hr IV .Q24H [facility] Rx#:[id number] Insulin Regular 100 unit 24.467 In Sodium Chloride 0.9% 100 ml @ Per Protocol IV .Q0M [facility] Rx#:[id number] Milrinone-D5w Pmx 20 mg 99.554 95.914 In Dextrose/Water 1 100ml .bag @ Per Protocol IV . Q0M [facility] Rx#:[id number] Norepinephrine 4 mg In 145.614 148.850 114.874 Sodium Chloride 0.9% 250 ml @ 0.02 MCG/KG/MIN 6. 934 mls/hr IV .Q24H [facility] Rx#:[id number] Oral 1000 300 500 Blood Product 620 Rc As-1 Unit 310 [id number] Output: Chest Tube Drainage 240 40 100 Chest Tube Left Lateral 160 40 100 Chest Chest Tube Right Lateral 80 Chest Urine 740 340 110 Other: Voiding Method Indwelling Catheter Indwelling Catheter Indwelling Catheter # Bowel Movements 1 1 ABP, PAP, CO, CI - Last Documented Arterial Blood Pressure 80/47 Pulmonary Artery Pressure 28/18 Cardiac Output 4.1 Cardiac Index 1.9 - Exam GENERAL: The patient is alert and oriented x3, not in any acute distress. Well developed, well nourished. HEENT: Pupils are round and equally reacting to light. EOMI. No scleral icterus. No conjunctival pallor. Normocephalic, atraumatic. No pharyngeal erythema. No thyromegaly. CARDIOVASCULAR: S1 and S2 present. No murmurs, rubs, or gallops. -PULMONARY: Chest is clear to auscultation, no wheezing . Bilateral basal crepitation ABDOMEN: Soft, nontender, nondistended, normoactive bowel sounds. No palpable organomegaly. MUSCULOSKELETAL: No joint swelling or deformity. -EXTREMITIES: No cyanosis, clubbing, . Bilateral pitting leg edema. NEUROLOGICAL: Gross neurological examination did not reveal any focal deficits. SKIN: No rashes. No petechiae - Labs CBC & Chem 7: 07/27/21 04:20 07/27/21 04:20 Labs: Abnormal Lab Results - Last 24 Hours (Table) 07/25/21 07/25/21 07/25/21 Range/Units 08:00 11:30 13:21 RBC (4.30-5.90) m/uL Hgb (13.0-17.5) gm/dL Hct (39.0-53.0) % Plt Count (150-450) k/uL ABG pH (7.35-7.45) ABG pCO2 26 L (35-45) mmHg ABG pO2 72 L (83-108) mmHg ABG HCO3 14 L (21-25) mmol/L ABG Total CO2 15 L (19-24) mmol/L ABG O2 Saturation 93.9 L (94-97) % Sodium (137-145) mmol/L Chloride (98-107) mmol/L Carbon Dioxide (22-30) mmol/L BUN (9-20) mg/dL Creatinine (0.66-1.25) mg/dL Glucose (74-99) mg/dL POC Glucose (mg/dL) 117 H (75-99) mg/dL Plasma Lactic Acid Loco (0.7-2.0) mmol/L Calcium (8.4-10.2) mg/dL Total Bilirubin (0.2-1.3) mg/dL AST (17-59) U/L ALT (4-49) U/L Total Protein (6.3-8.2) g/dL Albumin (3.5-5.0) g/dL Crossmatch See Detail 07/25/21 07/25/21 07/25/21 Range/Units 13:24 13:50 13:50 RBC 3.15 L (4.30-5.90) m/uL Hgb 10.2 L (13.0-17.5) gm/dL Hct 30.7 L (39.0-53.0) % Plt Count 62 L (150-450) k/uL ABG pH 7.32 L (7.35-7.45) ABG pCO2 32 L (35-45) mmHg ABG pO2 27 L* (83-108) mmHg ABG HCO3 17 L (21-25) mmol/L ABG Total CO2 18 L (19-24) mmol/L ABG O2 Saturation 43.0 L (94-97) % Sodium 134 L (137-145) mmol/L Chloride 108 H (98-107) mmol/L Carbon Dioxide 13 L (22-30) mmol/L BUN 41 H (9-20) mg/dL Creatinine 1.72 H (0.66-1.25) mg/dL Glucose 196 H (74-99) mg/dL POC Glucose (mg/dL) (75-99) mg/dL Plasma Lactic Acid Loco (0.7-2.0) mmol/L Calcium 8.2 L (8.4-10.2) mg/dL Total Bilirubin 2.1 H (0.2-1.3) mg/dL AST 571 H (17-59) U/L ALT 497 H (4-49) U/L Total Protein 5.1 L (6.3-8.2) g/dL Albumin 3.0 L (3.5-5.0) g/dL Crossmatch 07/25/21 07/25/21 07/25/21 Range/Units 13:50 15:35 16:48 RBC (4.30-5.90) m/uL Hgb (13.0-17.5) gm/dL Hct (39.0-53.0) % Plt Count (150-450) k/uL ABG pH (7.35-7.45) ABG pCO2 27 L (35-45) mmHg ABG pO2 129 H (83-108) mmHg ABG HCO3 17 L (21-25) mmol/L ABG Total CO2 17 L (19-24) mmol/L ABG O2 Saturation 99.4 H (94-97) % Sodium (137-145) mmol/L Chloride (98-107) mmol/L Carbon Dioxide (22-30) mmol/L BUN (9-20) mg/dL Creatinine (0.66-1.25) mg/dL Glucose (74-99) mg/dL POC Glucose (mg/dL) 247 H (75-99) mg/dL Plasma Lactic Acid Loco 3.2 H* (0.7-2.0) mmol/L Calcium (8.4-10.2) mg/dL Total Bilirubin (0.2-1.3) mg/dL AST (17-59) U/L ALT (4-49) U/L Total Protein (6.3-8.2) g/dL Albumin (3.5-5.0) g/dL Crossmatch 07/25/21 07/25/21 07/25/21 Range/Units 17:02 19:12 20:18 RBC (4.30-5.90) m/uL Hgb (13.0-17.5) gm/dL Hct (39.0-53.0) % Plt Count (150-450) k/uL ABG pH 7.46 H (7.35-7.45) ABG pCO2 27 L 29 L (35-45) mmHg ABG pO2 80 L 215 H (83-108) mmHg ABG HCO3 19 L 20 L (21-25) mmol/L ABG Total CO2 (19-24) mmol/L ABG O2 Saturation 99.9 H (94-97) % Sodium (137-145) mmol/L Chloride (98-107) mmol/L Carbon Dioxide (22-30) mmol/L BUN (9-20) mg/dL Creatinine (0.66-1.25) mg/dL Glucose (74-99) mg/dL POC Glucose (mg/dL) 255 H (75-99) mg/dL Plasma Lactic Acid Loco (0.7-2.0) mmol/L Calcium (8.4-10.2) mg/dL Total Bilirubin (0.2-1.3) mg/dL AST (17-59) U/L ALT (4-49) U/L Total Protein (6.3-8.2) g/dL Albumin (3.5-5.0) g/dL Crossmatch 07/25/21 07/26/21 07/26/21 Range/Units 23:32 02:13 04:10 RBC 2.92 L (4.30-5.90) m/uL Hgb 9.6 L (13.0-17.5) gm/dL Hct 27.8 L (39.0-53.0) % Plt Count 75 L (150-450) k/uL ABG pH 7.47 H (7.35-7.45) ABG pCO2 32 L (35-45) mmHg ABG pO2 158 H (83-108) mmHg ABG HCO3 (21-25) mmol/L ABG Total CO2 (19-24) mmol/L ABG O2 Saturation 99.6 H (94-97) % Sodium (137-145) mmol/L Chloride (98-107) mmol/L Carbon Dioxide (22-30) mmol/L BUN (9-20) mg/dL Creatinine (0.66-1.25) mg/dL Glucose (74-99) mg/dL POC Glucose (mg/dL) 200 H (75-99) mg/dL Plasma Lactic Acid Loco (0.7-2.0) mmol/L Calcium (8.4-10.2) mg/dL Total Bilirubin (0.2-1.3) mg/dL AST (17-59) U/L ALT (4-49) U/L Total Protein (6.3-8.2) g/dL Albumin (3.5-5.0) g/dL Crossmatch 07/26/21 07/26/21 07/26/21 Range/Units 04:10 06:44 08:32 RBC (4.30-5.90) m/uL Hgb (13.0-17.5) gm/dL Hct (39.0-53.0) % Plt Count (150-450) k/uL ABG pH 7.47 H (7.35-7.45) ABG pCO2 32 L (35-45) mmHg ABG pO2 (83-108) mmHg ABG HCO3 (21-25) mmol/L ABG Total CO2 (19-24) mmol/L ABG O2 Saturation 98.0 H (94-97) % Sodium 134 L (137-145) mmol/L Chloride (98-107) mmol/L Carbon Dioxide (22-30) mmol/L BUN 50 H (9-20) mg/dL Creatinine 1.60 H (0.66-1.25) mg/dL Glucose 168 H (74-99) mg/dL POC Glucose (mg/dL) 144 H (75-99) mg/dL Plasma Lactic Acid Loco (0.7-2.0) mmol/L Calcium 7.7 L (8.4-10.2) mg/dL Total Bilirubin 1.5 H (0.2-1.3) mg/dL AST 264 H (17-59) U/L ALT 385 H (4-49) U/L Total Protein 4.5 L (6.3-8.2) g/dL Albumin 2.6 L (3.5-5.0) g/dL Crossmatch 07/26/21 Range/Units 08:36 RBC (4.30-5.90) m/uL Hgb (13.0-17.5) gm/dL Hct (39.0-53.0) % Plt Count (150-450) k/uL ABG pH (7.35-7.45) ABG pCO2 (35-45) mmHg ABG pO2 26 L* (83-108) mmHg ABG HCO3 26 H (21-25) mmol/L ABG Total CO2 27 H (19-24) mmol/L ABG O2 Saturation 41.4 L (94-97) % Sodium (137-145) mmol/L Chloride (98-107) mmol/L Carbon Dioxide (22-30) mmol/L BUN (9-20) mg/dL Creatinine (0.66-1.25) mg/dL Glucose (74-99) mg/dL POC Glucose (mg/dL) (75-99) mg/dL Plasma Lactic Acid Loco (0.7-2.0) mmol/L Calcium (8.4-10.2) mg/dL Total Bilirubin (0.2-1.3) mg/dL AST (17-59) U/L ALT (4-49) U/L Total Protein (6.3-8.2) g/dL Albumin (3.5-5.0) g/dL Crossmatch Assessment and Plan Assessment: severe triple coronary artery diseas, status post multiple vessel CABG Severe aortic stenosis status post aortic valve replacement Acute systolic heart failure, , ischemic cardiomyopathy is suspected with ejection fraction of 30-35% None STEMI Acute kidney injury, suspected secondary to diuresis. On the top of his chronic kidney disease stage III Hypotension requiring pressors postoperatively Postoperative anemia requiring 1 unit of blood transfusion Sore throat, improved, coronavirus is negative Hyponatremia Diabetes mellitus, With hyperglycemia upon admission . Hemoglobin A1c is 8.6% Hypertension Hyperlipidemia Plan: this is a pleasant 75 years old male who presents with possible acute CHF and high troponin. Cardiothoracic surgery been consulted for CABG on 07/22 and aortic fall for placement on the same day Continue with pressors and monitor blood pressure Continue with aspirin and Plavix Keep monitoring glucose while keeping the patient on insulin Hold antihypertensive and metformin. Pulmonary/critical care consult Cardiology and nephrology team on the case Cardiology cardiology team recommend patient will need AICD open discharge Monitor hemoglobin Labs and medication were reviewed.. Continue same treatment. Continue with symptomatic treatment. Resume home medication. Monitor lytes and vitals. DVT and GI prophylaxis. Further recommendations depends on the clinical course of the patient DVT prophylaxis: Fondaparinux GI Prophylaxis: Pepcid Prognosis is guarded
--- NOTE | 2021-07-27 08:12 | XR ---
EXAMINATION TYPE: XR chest 1V portable DATE OF EXAM: 07/27/2021 COMPARISON: Chest x-ray 07/26/2021 HISTORY: Postop coronary artery bypass graft TECHNIQUE: Single frontal view of the chest is obtained. FINDINGS: Patient is post median sternotomy and left atrial appendage clip placement, cardiac valve replacement. Left-sided chest tube remains in place. Right jugular central venous catheter shows the distal tip over the pulmonary artery. No evident pneumothorax. Basilar density is again seen. The lef t hemidiaphragms obscured. IMPRESSION: Postoperative findings, probable basilar atelectasis, possible associated effusion.
[2021-07-27] MEDS ORDERED: FUROSEMIDE 10 MG/ML 4 ML VIAL IV STA (08:42)
[2021-07-27] MEDS ORDERED: CALCIUM GLUCONATE 2 GM in SODIUM CHLORIDE 0.9% 100 ML IVPB ONE (08:44)
--- NOTE | 2021-07-27 08:52 | P.PN ---
Subjective Patient is seen in follow-up for acute kidney injury on chronic kidney disease. Renal function better. Patient is on Levophed. On oral amiodarone. Remains on Primacor. Sitting up in chair. Feels better today. Hemoglobin improved posttransfusion. Nonoliguric. Vital signs are stable. On Levophed. HEENT: On nasal cannula. LUNGS: Breath sounds decreased. Chest tubes noted. HEART: Rate and Rhythm are regular. ABDOMEN: Soft, no distention. EXTREMITITES: Trace edema. Objective - Vital Signs Vital signs: Vital Signs Temp 98.6 F 07/25/21 12:15 Pulse 85 07/27/21 06:45 Resp 15 07/27/21 07:00 BP 123/72 07/27/21 07:00 Pulse Ox 96 07/27/21 07:00 Intake & Output 07/26/21 07/27/21 07/27/21 18:59 06:59 18:59 Intake Total 2445.976 592.495 103.812 Output Total 805 680 140 Balance 1640.976 -87.505 -36.188 Weight 103.4 kg Intake: IV 631 371 28 CARDIAC OUTPUT 0.9 Sodium 100 60 Chloride Calcium Gluconate 1 gm In 100 Sodium Chloride 0.9% 100 ml @ 100 mls/hr IVPB ONCE ONE Rx#:[id number] PRESSURE BAG 0.9 Sodium 111 36 3 Chloride Sodium Chloride 0.9% 1, 300 275 25 000 ml @ 20 mls/hr IV . Q24H [facility] Rx#:[id number] Sodium Chloride 0.9% 50 20 ml @ 0.01 UNITS/MIN 1.53 mls/hr IVPB .Q24H [facility] with Vasopressin 20 unit Rx#:[id number] Intake, IV Titration 314.976 221.495 75.812 Amount Milrinone-D5w Pmx 20 mg 95.914 98.553 In Dextrose/Water 1 100ml .bag @ Per Protocol IV . Q0M [facility] Rx#:[id number] Norepinephrine 4 mg In 219.062 122.942 75.812 Sodium Chloride 0.9% 250 ml @ 0.02 MCG/KG/MIN 6. 934 mls/hr IV .Q24H [facility] Rx#:[id number] Oral 1500 Output: Chest Tube Drainage 310 90 100 Chest Tube Left Lateral 310 90 100 Chest Urine 495 590 40 Other: Voiding Method Indwelling Catheter Indwelling Catheter # Bowel Movements 1 1 ABP, PAP, CO, CI - Last Documented Arterial Blood Pressure 104/50 Pulmonary Artery Pressure 33/20 Cardiac Output 3.8 Cardiac Index 1.8 - Labs CBC & Chem 7: 07/27/21 04:20 07/27/21 04:20 Labs: Abnormal Lab Results - Last 24 Hours (Table) 07/26/21 07/26/21 07/26/21 Range/Units 11:56 15:20 16:57 RBC (4.30-5.90) m/uL Hgb (13.0-17.5) gm/dL Hct (39.0-53.0) % RDW (11.5-15.5) % Plt Count (150-450) k/uL Lymphocytes # (1.0-4.8) k/uL ABG pCO2 (35-45) mmHg ABG pO2 26 L* (83-108) mmHg ABG Total CO2 26 H (19-24) mmol/L ABG O2 Saturation 43.3 L (94-97) % Sodium (137-145) mmol/L BUN (9-20) mg/dL Creatinine (0.66-1.25) mg/dL POC Glucose (mg/dL) 111 H 106 H (75-99) mg/dL Calcium (8.4-10.2) mg/dL Total Bilirubin (0.2-1.3) mg/dL AST (17-59) U/L ALT (4-49) U/L Total Protein (6.3-8.2) g/dL Albumin (3.5-5.0) g/dL 07/26/21 07/27/21 07/27/21 Range/Units 20:11 04:20 04:20 RBC 3.06 L (4.30-5.90) m/uL Hgb 9.8 L (13.0-17.5) gm/dL Hct 29.6 L (39.0-53.0) % RDW 15.6 H (11.5-15.5) % Plt Count 76 L (150-450) k/uL Lymphocytes # 0.7 L (1.0-4.8) k/uL ABG pCO2 (35-45) mmHg ABG pO2 (83-108) mmHg ABG Total CO2 (19-24) mmol/L ABG O2 Saturation (94-97) % Sodium 133 L (137-145) mmol/L BUN 43 H (9-20) mg/dL Creatinine 1.28 H (0.66-1.25) mg/dL POC Glucose (mg/dL) 208 H (75-99) mg/dL Calcium 7.6 L (8.4-10.2) mg/dL Total Bilirubin 1.5 H (0.2-1.3) mg/dL AST 115 H (17-59) U/L ALT 267 H (4-49) U/L Total Protein 4.6 L (6.3-8.2) g/dL Albumin 2.4 L (3.5-5.0) g/dL 07/27/21 07/27/21 Range/Units 05:57 06:59 RBC (4.30-5.90) m/uL Hgb (13.0-17.5) gm/dL Hct (39.0-53.0) % RDW (11.5-15.5) % Plt Count (150-450) k/uL Lymphocytes # (1.0-4.8) k/uL ABG pCO2 33 L (35-45) mmHg ABG pO2 (83-108) mmHg ABG Total CO2 (19-24) mmol/L ABG O2 Saturation 98.3 H (94-97) % Sodium (137-145) mmol/L BUN (9-20) mg/dL Creatinine (0.66-1.25) mg/dL POC Glucose (mg/dL) 132 H (75-99) mg/dL Calcium (8.4-10.2) mg/dL Total Bilirubin (0.2-1.3) mg/dL AST (17-59) U/L ALT (4-49) U/L Total Protein (6.3-8.2) g/dL Albumin (3.5-5.0) g/dL Assessment and Plan Plan: Assessment: 1. Acute kidney injury secondary to ATN status post CABG. Renal function karla r. Creatinine 1.28 today. 2. Chronic kidney disease stage III a baseline creatinine in the range of 1-1.2 secondary to nephrosclerosis. UA benign. No evidence of hydronephrosis noted on kidney ultrasound. 3. A. fib with RVR maintained on oral amiodarone. 4. Acute blood loss anemia post blood transfusions this admission. On Aranesp. Iron deficiency noted. 5. Coronary artery disease status post CABG on 07/22/2021. 6. Metabolic acidosis secondary to acute kidney injury. Partially compensatory for respiratory alkalosis. Improved. 7. Volume overload. Improved. 8. Acute systolic heart failure with ejection fraction of 30-35%. 9. Hypotension due to underlying cardiac status, primacor, and anemia. On vasopressors. Also on midodrine. Plan: Lasix 40 mg IV once today. Avoid nephrotoxins. Continue to monitor renal function and urine output. Wean vasopressors. Add IV iron.
[2021-07-27] MEDS: CLOPIDOGREL 75 MG TAB PO SCH (09:00)
[2021-07-27] MEDS: ASPIRIN 81 MG PO SCH (09:00)
[2021-07-27] MEDS: AMIODARONE 200 MG TAB PO SCH ×2 (09:00→20:36)
[2021-07-27] MEDS: SODIUM FERRIC GLUCONAT-SUCROSE 125 MG in SODIUM CHLORIDE 0.9% 100 ML IVPB SCH (09:30)
[2021-07-27] MEDS: IPRATROPIUM-ALBUTEROL 3 ML NEB INHALATION SCH ×4 (10:23→19:44)
--- NOTE | 2021-07-27 11:22 | P.PN ---
Progress Note - Text Known coronary artery disease status post CABG making slow progress looks better today and denies any new symptoms Patient is still on pressors but more stable hemodynamically Remains in atrial fibrillation with controlled ventricular rate Not an anticoagulant because of concerns about her platelet count On exam today Comfortable at rest heart rate is 92-100 bpm blood pressure is 140/80 Carotid upstroke is diminished There is no jugular venous distention Chest exam reveals diminished air entry bilaterally Heart exam reveals first and second heart sounds no murmur no rub Extremities show mild edema Labs; Hemoglobin is 9.8 Assessment and plan Coronary artery disease status post CABG Hypotension Moderate pericardial effusion is Persistent atrial fibrillation Continue with current supportive care Continue oral amiodarone
[2021-07-27 11:31] LABS: Glucose,Whole Blood 123 mg/dL (75-99)
[2021-07-27] MEDS ORDERED: SENNOSIDES-DOCUSATE SODIUM 1 EACH TAB PO PRN (11:50)
--- NOTE | 2021-07-27 11:50 | P.PN ---
Subjective Progress Note Date: 07/27/21 Principal diagnosis: Triple-vessel coronary artery disease, non-STEMI and admission, acute systolic heart failure present on admission, EF 30-35%, first-degree heart block, paroxys mal episodes of second-degree and complete heart block this admission, acute kidney injury, elevated CRP, pro-calcitonin on admission. Previous medical history of hypertension, hyperlipidemia, uvu-syoqsbw-ufcukhmsz diabetes, never smoker, family history of heart disease, remains unvaccinated against covid POD #5 triple-vessel coronary artery bypass grafting using the left internal mammary artery to the left anterior descending coronary artery, reverse greater saphenous vein graft from the aorta to the second obtuse marginal coronary artery, and reverse greater saphenous vein graft from the aorta to the third obtuse marginal coronary artery. Aortic valve replacement using a 23 mm pericardial bioprosthetic Inspiris. Bilateral pulmonary vein isolation using bipolar radiofrequency energy from Atricure, exclusion of the left atrial appendage using a 40 mm Atriclip, intraoperative transesophageal echocardiogram, epi-aortic scanning and graft flow measurements using the VividCortex-Stim system. Endoscopic harvesting of left greater saphenous vein from the ankle to the groin, and right greater saphenous vein from just below the knee to the groin. Postoperative acute blood loss anemia, expected given hemodilution and cardiopulmonary bypass. Hypotension, multifactorial, could be secondary to his ejection fraction of 30- 35%. Paroxysmal atrial fibrillation, a known common occurrence after cardiac surgery and expected due to his known preoperative atrial fibrillation. The patient was seen and examined this morning with Dr. Bingham sitting up in the recliner in the ICU in no acute distress. He denies any pain or shortness of breath, states he feels pretty good. Was atrially paced at 86 BPM this morning, underlying rhythm sinus rhythm with 1st degree AVB with heart rate in the low 70s, then had a short period of atrial fibrillation. Continues to go in and out of atrial fibrillation. Remains on IV Primacor and low-dose levo, continuing to hold beta jose raul and statin therapy. Right internal jugular Pelham/Cordis, left radial arterial line, left pleural chest tube remained present. Patient does clinically appear a bit more stable and is in very good spirits. Objective - Vital Signs Vital signs: Vital Signs Temp 98.2 F 07/27/21 08:00 Pulse 85 07/27/21 10:00 Resp 22 07/27/21 10:00 BP 123/72 07/27/21 07:00 Pulse Ox 96 07/27/21 10:00 Intake & Output 07/26/21 07/27/21 07/27/21 18:59 06:59 18:59 Intake Total 2445.976 592.495 226.812 Output Total 805 680 770 Balance 1640.976 -87.505 -543.188 Weight 103.4 kg Intake: IV 631 371 151 CARDIAC OUTPUT 0.9 Sodium 100 60 30 Chloride Calcium Gluconate 1 gm In 100 Sodium Chloride 0.9% 100 ml @ 100 mls/hr IVPB ONCE ONE Rx#:[id number] PRESSURE BAG 0.9 Sodium 111 36 21 Chloride Sodium Chloride 0.9% 1, 300 275 100 000 ml @ 20 mls/hr IV . Q24H [facility] Rx#:[id number] Sodium Chloride 0.9% 50 20 ml @ 0.01 UNITS/MIN 1.53 mls/hr IVPB .Q24H [facility] with Vasopressin 20 unit Rx#:[id number] Intake, IV Titration 314.976 221.495 75.812 Amount Milrinone-D5w Pmx 20 mg 95.914 98.553 In Dextrose/Water 1 100ml .bag @ Per Protocol IV . Q0M [facility] Rx#:[id number] Norepinephrine 4 mg In 219.062 122.942 75.812 Sodium Chloride 0.9% 250 ml @ 0.02 MCG/KG/MIN 6. 934 mls/hr IV .Q24H [facility] Rx#:[id number] Oral 1500 Output: Chest Tube Drainage 310 90 190 Chest Tube Left Lateral 310 90 190 Chest Urine 495 590 580 Other: Voiding Method Indwelling Catheter Indwelling Catheter # Bowel Movements 1 1 ABP, PAP, CO, CI - Last Documented Arterial Blood Pressure 109/53 Pulmonary Artery Pressure 27/16 Cardiac Output 3.7 Cardiac Index 1.8 - Exam CONSTITUTIONAL: Appears comfortable, cooperative, no acute distress RESPIRATORY: Lungs sounds diminished bilaterally. Respirations even, nonlabored. Currently on 2 L nasal cannula with oxygen saturation 97%. Able to achieve 750 mL on incentive spirometry. Strong cough. CARDIOVASCULAR: S1, S2 present. Regular rate and rhythm, atrially paced at 86 bpm with underlying rhythm sinus with first-degree AV block, occasionally in atrial fibrillation. Sternum stable. Palpable peripheral pulses bilaterally. Generalized edema present. No calf pain or tenderness noted. Heart hugger in place with patient demonstrating appropriate use. Antiembolism stockings, SCDs present. GASTROINTESTINAL: Abdomen soft, nontender, nondistended. Active bowel sounds present 4 quadrants. Tolerating diet. Positive liquid stool GENITOURINARY: Nava present draining clear, yellow urine. Output overnight 30-70 mL per hour, 1045 mL in the last 24 hours INTEGUMENTARY: Skin is warm and dry with evidence of good perfusion. Anterior chest incision well approximated and covered with dry intact dressing. Bilateral EVH sites well approximated without redness or drainage. NEUROLOGIC: Cranial nerves II through XII intact MUSKULOSKELETAL: Able to move all extremities, strength equal bilaterally, gait normal PSYCHIATRIC: Alert and oriented to person place and time, appropriate affect, intact judgment and insight INVASIVE LINES AND TUBES: Left pleural chest tube present and connected to wall suction, no air leaks present, 180 mL serosanguineous drainage overnight, 650 mL in the last 24 hours. A/V epicardial pacemaker wires present, connected to generator, AAI mode with rate 86 bpm. Right internal jugular Pelham/Cordis, left radial arterial line present. Last CO/CI 3.7/1.8, PA 27/16, CVP 13. - Allied health notes Allied health notes reviewed: nursing - Labs CBC & Chem 7: 07/27/21 04:20 07/27/21 04:20 Labs: Abnormal Lab Results - Last 24 Hours (Table) 07/26/21 07/26/21 07/26/21 Range/Units 11:56 15:20 16:57 RBC (4.30-5.90) m/uL Hgb (13.0-17.5) gm/dL Hct (39.0-53.0) % RDW (11.5-15.5) % Plt Count (150-450) k/uL Lymphocytes # (1.0-4.8) k/uL ABG pCO2 (35-45) mmHg ABG pO2 26 L* (83-108) mmHg ABG Total CO2 26 H (19-24) mmol/L ABG O2 Saturation 43.3 L (94-97) % Sodium (137-145) mmol/L BUN (9-20) mg/dL Creatinine (0.66-1.25) mg/dL POC Glucose (mg/dL) 111 H 106 H (75-99) mg/dL Calcium (8.4-10.2) mg/dL Total Bilirubin (0.2-1.3) mg/dL AST (17-59) U/L ALT (4-49) U/L Total Protein (6.3-8.2) g/dL Albumin (3.5-5.0) g/dL 07/26/21 07/27/21 07/27/21 Range/Units 20:11 04:20 04:20 RBC 3.06 L (4.30-5.90) m/uL Hgb 9.8 L (13.0-17.5) gm/dL Hct 29.6 L (39.0-53.0) % RDW 15.6 H (11.5-15.5) % Plt Count 76 L (150-450) k/uL Lymphocytes # 0.7 L (1.0-4.8) k/uL ABG pCO2 (35-45) mmHg ABG pO2 (83-108) mmHg ABG Total CO2 (19-24) mmol/L ABG O2 Saturation (94-97) % Sodium 133 L (137-145) mmol/L BUN 43 H (9-20) mg/dL Creatinine 1.28 H (0.66-1.25) mg/dL POC Glucose (mg/dL) 208 H (75-99) mg/dL Calcium 7.6 L (8.4-10.2) mg/dL Total Bilirubin 1.5 H (0.2-1.3) mg/dL AST 115 H (17-59) U/L ALT 267 H (4-49) U/L Total Protein 4.6 L (6.3-8.2) g/dL Albumin 2.4 L (3.5-5.0) g/dL 07/27/21 07/27/21 Range/Units 05:57 06:59 RBC (4.30-5.90) m/uL Hgb (13.0-17.5) gm/dL Hct (39.0-53.0) % RDW (11.5-15.5) % Plt Count (150-450) k/uL Lymphocytes # (1.0-4.8) k/uL ABG pCO2 33 L (35-45) mmHg ABG pO2 (83-108) mmHg ABG Total CO2 (19-24) mmol/L ABG O2 Saturation 98.3 H (94-97) % Sodium (137-145) mmol/L BUN (9-20) mg/dL Creatinine (0.66-1.25) mg/dL POC Glucose (mg/dL) 132 H (75-99) mg/dL Calcium (8.4-10.2) mg/dL Total Bilirubin (0.2-1.3) mg/dL AST (17-59) U/L ALT (4-49) U/L Total Protein (6.3-8.2) g/dL Albumin (3.5-5.0) g/dL - Imaging and Cardiology Chest x-ray: report reviewed, image reviewed Assessment and Plan Assessment: 1. Triple-vessel coronary artery disease, non-STEMI and admission, status post three-vessel CABG 2. Acute systolic heart failure present on admission, EF 30-35% 3. First-degree heart block, paroxysmal episodes of second-degree and complete heart block this admission 4. Acute kidney injury 5. Elevated CRP, pro-calcitonin on admission 6. Aortic stenosis, status post bioprosthetic aortic valve replacement 7. History of hypertension 8. History of hyperlipidemia, treated, cholesterol 129, LDL 71 9. Rge-bqnxltk-wvdnvledv diabetes, hemoglobin A1c 8.6% 10. Never smoker, preoperative FEV1 72% of predicted 11. Family history of heart disease 12. Remains unvaccinated against covid 13. Preoperative as well as postoperative paroxysmal atrial fibrillation, status post bilateral pulmonary vein isolation and left atrial appendage ligation 14. Postoperative acute blood loss anemia, expected 15. Hypotension, multifactorial 16. Transaminitis, trending downward 17. Thrombocytopenia, expected, HIT negative Plan: 1. Continue low-dose aspirin and Plavix. Continue to hold beta jose raul this time due to episodes of bradycardia, first degree, second degree and complete heart block preoperatively. Will start beta jose raul when able to tolerate. 2. Continue to hold statin at this time due to his elevated liver enzymes. Once his liver enzymes are normalized we will restart his statin, liver enzymes are trending down. 3. Wean O2 as tolerated. Encourage incentive spirometry use 10 times every hour while awake. Bronchodilators per pulmonology/critical care medicine. 4. Increase activity, ambulate as tolerated. PT/OT/cardiac rehab following. 5. Will monitor daily labs and chest x-rays. Electrolyte replacement per protocol. Avoid nephrotoxic agents. Will give 40 mg IV push Lasix 1, okay with Dr. Carpenter 6. GI/DVT prophylaxis. 7. Insulin management per primary care service. The patient needs tight glucose control to prevent sternal wound infection and promote healing. 8. Continue right IJ Cordis and Pelham-Adalberto catheter with hemodynamic monitoring for now. Continue Primacor drip, will decrease to 0.2 mcg/kg/min after diuresis from Lasix 9. Wean levo as tolerated 10. Pain control with current medication regimen. 11. Keep the left pleural chest tube for another 24 hours to low continuous wall suction due to high output 12. Continue Nava catheter for another 24 hours for strict accurate intake and output. 13. Continue atrial and ventricular epicardial pacemaker wires, keep pacemaker generator at an AAI of 86 BPM. 14. Will give 2 g calcium gluconate IV piggyback 1 15. Hit panel negative, will stop Arixtra and restart subcu heparin 16. Continue Midodrine 10 mg by mouth 3 times a day. 17. Continue Amiodarone 18. Decision regarding placement of permanent pacemaker/biventricular ICD per Dr. Morse 19. C. diff samples sent per primary care, await results 20. More recommendations to follow based on patient's clinical course. Time with Patient: Greater than 30
[2021-07-27] MEDS ORDERED: ALBUMIN HUMAN 25% 50 ML in EMPTY BAG 1 BAG IVPB ONE (12:42)
[2021-07-27] MEDS ORDERED: Potassium Replacement Protocol 1 EACH MISC MISCELLANE PRN (13:26)
[2021-07-27] MEDS ORDERED: POTASSIUM BICARBONATE/CIT AC 20 MEQ TABLET.EFF NG-TUBE SCH (14:00)
--- NOTE | 2021-07-27 14:56 | P.PN ---
Subjective Progress Note Date: 07/27/21 Principal diagnosis: Status post triple-vessel CABG postoperative day #5. POD #5 triple-vessel coronary artery bypass grafting using the left internal mammary artery to the left anterior descending coronary artery, reverse greater saphenous vein graft from the aorta to the second obtuse marginal coronary artery, and reverse greater saphenous vein graft from the aorta to the third obtuse marginal coronary artery. Aortic valve replacement using a 23 mm pericardial bioprosthetic Inspiris. Bilateral pulmonary vein isolation using bipolar radiofrequency energy from Atricure, exclusion of the left atrial appendage using a 40 mm Atriclip, intraoperative transesophageal echocardiogram, epi-aortic scanning and graft flow measurements using the [employer]-Stim system. Endoscopic harvesting of left greater saphenous vein from the ankle to the groin, and right greater saphenous vein from just below the knee to the groin. Patient was reevaluated today on 07/27/2020, patient is still in the ICU, he is on 2 L nasal cannula, still requiring milrinone at 3 mcg/kg/m, he is off norepin ephrine, patient is off vasopressin, continues to have a relatively low cardiac output of 3.4 and cardiac index of 1.6. His pulmonary artery pressure is 27/12 CVP is 13. Incentive spirometry achieving about 7 50 mL. Chest x-ray does not show any evidence of congestive heart failure. Clinically the patient seems to be doing fairly well, continues to have a left sided chest tube in place. WBC c ount is 7 hemoglobin is 9.8. ABG this morning showed a pO2 of 96 pCO2 33 pH of 7.45. Basic metabolic profile is normal BUN is 43 creatinine is down to 1.28 from 1.60 yesterday. Patient continues to have atrial pacing at 86 bpm this morning, his underlying rhythm is sinus rhythm with first-degree AV block. Heart rate in the 70s. Intermittently had short periods of atrial fibrillation. Objective - Vital Signs Vital signs: Vital Signs Temp 97.8 F 07/27/21 12:00 Pulse 86 07/27/21 14:00 Resp 24 07/27/21 14:00 BP 123/72 07/27/21 14:00 Pulse Ox 97 07/27/21 14:00 Intake & Output 07/26/21 07/27/21 07/27/21 18:59 06:59 18:59 Intake Total 2445.976 592.495 350.812 Output Total 682 566 3796 Balance 1640.976 -87.505 -1369.188 Weight 103.4 kg Intake: IV 631 371 275 CARDIAC OUTPUT 0.9 Sodium 100 60 30 Chloride Calcium Gluconate 1 gm In 100 Sodium Chloride 0.9% 100 ml @ 100 mls/hr IVPB ONCE ONE Rx#:[id number] PRESSURE BAG 0.9 Sodium 111 36 45 Chloride Sodium Chloride 0.9% 1, 300 275 200 000 ml @ 20 mls/hr IV . Q24H [facility] Rx#:[id number] Sodium Chloride 0.9% 50 20 ml @ 0.01 UNITS/MIN 1.53 mls/hr IVPB .Q24H [facility] with Vasopressin 20 unit Rx#:[id number] Intake, IV Titration 314.976 221.495 75.812 Amount Milrinone-D5w Pmx 20 mg 95.914 98.553 In Dextrose/Water 1 100ml .bag @ Per Protocol IV . Q0M [facility] Rx#:[id number] Norepinephrine 4 mg In 219.062 122.942 75.812 Sodium Chloride 0.9% 250 ml @ 0.02 MCG/KG/MIN 6. 934 mls/hr IV .Q24H [facility] Rx#:[id number] Oral 1500 Output: Chest Tube Drainage 310 90 240 Chest Tube Left Lateral 310 90 240 Chest Urine 446 746 5687 Other: Voiding Method Indwelling Catheter Indwelling Catheter Indwelling Catheter # Bowel Movements 1 1 ABP, PAP, CO, CI - Last Documented Arterial Blood Pressure 132/61 Pulmonary Artery Pressure 25/14 Cardiac Output 3.4 Cardiac Index 1.6 - Exam Physical Exam revealed a 75-year-old white male in no distress, on 2 L nasal cannula. Head: Atraumatic normocephalic. HEENT:[Neck is supple.] [No neck masses.] [No thyromegaly.] [No JVD.] Chest: [Minimal fine crackles at the left base, otherwise unremarkable..] Cardiac Exam: [Normal S1 and S2, no S3 gallop, no murmur.] Abdomen: [Soft, nontender, no megaly, no rebound, no guarding, normal bowel sounds.] Extremities: [No clubbing, no edema, no cyanosis.] Neurological Exam: [No focal neurologic deficit.] Alert oriented 3. Psychiatric: Normal mood affect and normal mental status. - Labs CBC & Chem 7: 07/27/21 04:20 07/27/21 04:20 Labs: Abnormal Lab Results - Last 24 Hours (Table) 07/26/21 07/26/21 07/26/21 Range/Units 15:20 16:57 20:11 RBC (4.30-5.90) m/uL Hgb (13.0-17.5) gm/dL Hct (39.0-53.0) % RDW (11.5-15.5) % Plt Count (150-450) k/uL Lymphocytes # (1.0-4.8) k/uL ABG pCO2 (35-45) mmHg ABG pO2 26 L* (83-108) mmHg ABG Total CO2 26 H (19-24) mmol/L ABG O2 Saturation 43.3 L (94-97) % Sodium (137-145) mmol/L BUN (9-20) mg/dL Creatinine (0.66-1.25) mg/dL POC Glucose (mg/dL) 106 H 208 H (75-99) mg/dL Calcium (8.4-10.2) mg/dL Total Bilirubin (0.2-1.3) mg/dL AST (17-59) U/L ALT (4-49) U/L Total Protein (6.3-8.2) g/dL Albumin (3.5-5.0) g/dL 07/27/21 07/27/21 07/27/21 Range/Units 04:20 04:20 05:57 RBC 3.06 L (4.30-5.90) m/uL Hgb 9.8 L (13.0-17.5) gm/dL Hct 29.6 L (39.0-53.0) % RDW 15.6 H (11.5-15.5) % Plt Count 76 L (150-450) k/uL Lymphocytes # 0.7 L (1.0-4.8) k/uL ABG pCO2 33 L (35-45) mmHg ABG pO2 (83-108) mmHg ABG Total CO2 (19-24) mmol/L ABG O2 Saturation 98.3 H (94-97) % Sodium 133 L (137-145) mmol/L BUN 43 H (9-20) mg/dL Creatinine 1.28 H (0.66-1.25) mg/dL POC Glucose (mg/dL) (75-99) mg/dL Calcium 7.6 L (8.4-10.2) mg/dL Total Bilirubin 1.5 H (0.2-1.3) mg/dL AST 115 H (17-59) U/L ALT 267 H (4-49) U/L Total Protein 4.6 L (6.3-8.2) g/dL Albumin 2.4 L (3.5-5.0) g/dL 07/27/21 07/27/21 Range/Units 06:59 11:29 RBC (4.30-5.90) m/uL Hgb (13.0-17.5) gm/dL Hct (39.0-53.0) % RDW (11.5-15.5) % Plt Count (150-450) k/uL Lymphocytes # (1.0-4.8) k/uL ABG pCO2 (35-45) mmHg ABG pO2 (83-108) mmHg ABG Total CO2 (19-24) mmol/L ABG O2 Saturation (94-97) % Sodium (137-145) mmol/L BUN (9-20) mg/dL Creatinine (0.66-1.25) mg/dL POC Glucose (mg/dL) 132 H 123 H (75-99) mg/dL Calcium (8.4-10.2) mg/dL Total Bilirubin (0.2-1.3) mg/dL AST (17-59) U/L ALT (4-49) U/L Total Protein (6.3-8.2) g/dL Albumin (3.5-5.0) g/dL Assessment and Plan Assessment: Impression: Status post CABG and AVR, postoperative day #5 Acute non-ST elevation myocardial infarction Acute systolic congestive heart failure ejection fraction of 50-35%. Acute hypoxic respiratory failure secondary to LV dysfunction and cardiomyopathy. No clear-cut evidence of congestive heart failure on chest x- ray. Type 2 diabetes. Acute kidney injury, improving. Shock liver, improving. Acute blood loss anemia. Atrial fibrillation with RVR. On oral amiodarone. Recommendation: Continue present supportive care measures Continue inotropic. Continue amiodarone. Continue incentive spirometry. Continue to monitor renal profile. Early ambulation. BiPAP at bedtime if necessary. We will continue to follow. Prognosis remains relatively guarded. Time with Patient: Less than 30
[2021-07-27 16:15] LABS: Glucose,Whole Blood 170 mg/dL (75-99)
[2021-07-27] MEDS: HEPARIN SODIUM,PORCINE/PF 5,000 UNIT/0.5 ML SYRINGE SQ SCH (16:47)
[2021-07-27] MEDS: SODIUM CHLORIDE 0.9% 1,000 ML IV SCH (20:17)
[2021-07-27 20:33] LABS: Glucose,Whole Blood 124 mg/dL (75-99)
[2021-07-27] MEDS: MILRINONE-D5W PMX 20 MG in DEXTROSE/WATER 1 100ML.BAG IV SCH (21:00)
[2021-07-28] MEDS: HEPARIN SODIUM,PORCINE/PF 5,000 UNIT/0.5 ML SYRINGE SQ SCH ×3 (00:50→16:50)
[2021-07-28 01:53] LABS: Glucose,Whole Blood 142 mg/dL (75-99)
[2021-07-28] MEDS: INSULIN ASPART (NovoLOG) 100 UNIT/ML VIAL SQ SCH ×5 (01:58→20:28)
[2021-07-28 04:44] LABS: HCT 28.4 % (39.0-53.0); HGB 9.5 gm/dL (13.0-17.5); MCH 32.4 pg (25.0-35.0); MCHC 33.3 g/dL (31.0-37.0); MCV 97.3 fL (80.0-100.0); Macrocytosis Slight; RBC 2.92 m/uL (4.30-5.90); RDW 15.9 % (11.5-15.5); WBC 6.2 k/uL (3.8-10.6)
[2021-07-28 04:51] LABS: Platelet Count 88 k/uL (150-450)
[2021-07-28 05:14] LABS: Ionized Calcium 4.6 mg/dL (4.5-5.3)
[2021-07-28 05:37] LABS: Albumin 2.4 g/dL (3.5-5.0); Calcium 7.7 mg/dL (8.4-10.2); Potassium 3.7 mmol/L (3.5-5.1); Total Bilirubin 1.3 mg/dL (0.2-1.3); Total Protein 4.5 g/dL (6.3-8.2)
--- NOTE | 2021-07-28 07:17 | XR ---
EXAMINATION TYPE: XR chest 1V portable DATE OF EXAM: 07/28/2021 CLINICAL HISTORY: Post-CABG progress study. TECHNIQUE: Single AP portable semiupright view of the chest is obtained. COMPARISON: Chest x-ray from one day earlier and older studies. FINDINGS: Stable right internal jugular Burkburnett-Adalberto catheter. Stable left basilar chest tube. Overlyin g sternal wires and mediastinal clips along with the left atrial appendage clip are all redemonstrate d. Metallic aortic valve and overlying epicardial pacemaker wires are redemonstrated. Cardiomegaly with left greater than right bibasilar opacities and small bilateral pleural effusions w ithout visualized pneumothorax is redemonstrated. Osseous structures are intact. IMPRESSION: Persistent cardiomegaly with left greater than right bibasilar infiltrates and/or atelect asis and small bilateral pleural effusions are redemonstrated. No [facility].
[2021-07-28] MEDS ORDERED: CALCIUM GLUCONATE 2 GM in SODIUM CHLORIDE 0.9% 100 ML IVPB ONE (07:30)
[2021-07-28] MEDS: IPRATROPIUM-ALBUTEROL 3 ML NEB INHALATION SCH ×4 (07:31→20:05)
[2021-07-28 08:12] LABS: Glucose,Whole Blood 237 mg/dL (75-99)
[2021-07-28] MEDS: MIDODRINE 5 MG TAB PO SCH ×3 (08:26→16:53)
[2021-07-28] MEDS: MILRINONE-D5W PMX 20 MG in DEXTROSE/WATER 1 100ML.BAG IV SCH (08:27)
[2021-07-28] MEDS: PANTOPRAZOLE 40 MG TABLET PO SCH (08:27)
[2021-07-28] MEDS: AMIODARONE 200 MG TAB PO SCH ×2 (08:44→20:34)
[2021-07-28] MEDS: ASPIRIN 81 MG PO SCH (08:44)
[2021-07-28] MEDS: CLOPIDOGREL 75 MG TAB PO SCH (08:44)
--- NOTE | 2021-07-28 09:18 | P.PN ---
Subjective Patient is seen in follow-up for acute kidney injury on chronic kidney disease. Renal function better. On oral amiodarone. Remains on Primacor. Sitting up in chair. Nonoliguric. No active complaints. Vital signs are stable. HEENT: On nasal cannula. LUNGS: Breath sounds decreased. Chest tubes noted. HEART: Rate and Rhythm are regular. ABDOMEN: No distention. EXTREMITITES: 1+ edema. Objective - Vital Signs Vital signs: Vital Signs Temp 98.8 F 07/28/21 08:00 Pulse 86 07/28/21 08:00 Resp 20 07/28/21 08:00 BP 123/72 07/28/21 08:00 Pulse Ox 98 07/28/21 06:00 Intake & Output 07/27/21 07/28/21 07/28/21 18:59 06:59 18:59 Intake Total 449.812 740.439 6 Output Total 2060 700 110 Balance -1610.188 40.439 -104 Weight 102.4 kg Intake: IV 374 307 6 CARDIAC OUTPUT 0.9 Sodium 30 110 Chloride PRESSURE BAG 0.9 Sodium 69 72 6 Chloride Sodium Chloride 0.9% 1, 275 125 000 ml @ 20 mls/hr IV . Q24H [facility] Rx#:[id number] Intake, IV Titration 75.812 183.439 Amount Milrinone-D5w Pmx 20 mg 100 In Dextrose/Water 1 100ml .bag @ Per Protocol IV . Q0M [facility] Rx#:[id number] Norepinephrine 4 mg In 75.812 83.439 Sodium Chloride 0.9% 250 ml @ 0.02 MCG/KG/MIN 6. 934 mls/hr IV .Q24H [facility] Rx#:[id number] Oral 250 Output: Chest Tube Drainage 265 130 30 Chest Tube Left Lateral 265 130 30 Chest Urine 1795 570 80 Other: Voiding Method Indwelling Catheter Indwelling Catheter ABP, PAP, CO, CI - Last Documented Arterial Blood Pressure 104/43 Pulmonary Artery Pressure 28/16 Cardiac Output 5.5 Cardiac Index 2.6 - Labs CBC & Chem 7: 07/28/21 04:25 07/28/21 04:25 Labs: Abnormal Lab Results - Last 24 Hours (Table) 07/27/21 07/27/21 07/27/21 Range/Units 11:29 16:14 20:31 RBC (4.30-5.90) m/uL Hgb (13.0-17.5) gm/dL Hct (39.0-53.0) % RDW (11.5-15.5) % Plt Count (150-450) k/uL Sodium (137-145) mmol/L BUN (9-20) mg/dL Glucose (74-99) mg/dL POC Glucose (mg/dL) 123 H 170 H 124 H (75-99) mg/dL Calcium (8.4-10.2) mg/dL AST (17-59) U/L ALT (4-49) U/L Total Protein (6.3-8.2) g/dL Albumin (3.5-5.0) g/dL 07/28/21 07/28/21 07/28/21 Range/Units 01:51 04:25 04:25 RBC 2.92 L (4.30-5.90) m/uL Hgb 9.5 L (13.0-17.5) gm/dL Hct 28.4 L (39.0-53.0) % RDW 15.9 H (11.5-15.5) % Plt Count 88 L (150-450) k/uL Sodium 133 L (137-145) mmol/L BUN 39 H (9-20) mg/dL Glucose 141 H (74-99) mg/dL POC Glucose (mg/dL) 142 H (75-99) mg/dL Calcium 7.7 L (8.4-10.2) mg/dL AST 63 H (17-59) U/L ALT 193 H (4-49) U/L Total Protein 4.5 L (6.3-8.2) g/dL Albumin 2.4 L (3.5-5.0) g/dL 07/28/21 Range/Units 08:10 RBC (4.30-5.90) m/uL Hgb (13.0-17.5) gm/dL Hct (39.0-53.0) % RDW (11.5-15.5) % Plt Count (150-450) k/uL Sodium (137-145) mmol/L BUN (9-20) mg/dL Glucose (74-99) mg/dL POC Glucose (mg/dL) 237 H (75-99) mg/dL Calcium (8.4-10.2) mg/dL AST (17-59) U/L ALT (4-49) U/L Total Protein (6.3-8.2) g/dL Albumin (3.5-5.0) g/dL Assessment and Plan Plan: Assessment: 1. Acute kidney injury secondary to ATN status post CABG. Renal function better. Creatinine 1.2 today. 2. Chronic kidney disease stage III a baseline creatinine in the range of 1-1.2 secondary to nephrosclerosis. UA benign. No evidence of hydronephrosis noted on kidney ultrasound. 3. A. fib with RVR maintained on oral amiodarone. 4. Acute blood loss anemia post blood transfusions this admission. On Aranesp. Iron deficiency noted. 5. Coronary artery disease status post CABG on 07/22/2021. 6. Metabolic acidosis secondary to acute kidney injury. Partially compensatory for respiratory alkalosis. Improved. 7. Volume overload. 8. Acute systolic heart failure with ejection fraction of 30-35%. 9. Hypotension due to underlying cardiac status, primacor, and anemia. Off vasopressors. On midodrine. 10. Hypokalemia from diuresis. Plan: Repeat Lasix 40 mg IV once today. Avoid nephrotoxins. Continue to monitor renal function and urine output. Maintain IV iron. Replace potassium.
--- NOTE | 2021-07-28 09:39 | P.PN ---
Subjective Progress Note Date: 07/27/21 This is a pleasant 75 years old male with past medical history of Diabetes Mellitus, Hyperlipidemia, Hypertension Patient presents because of the progressive exertional dyspnea and decreased leg swelling over one month, bilateral leg swelling and bilateral neck pain. However yesterday he started getting orthopnea, he could not lay down and his asked him to come to emergency room. Also patient is complaining of from dry cough and sore throat, mouth is making some clear phlegm. He denies chest pain or abdominal pain. No dizziness. He was complaining of from little diarrhea, he felt almost going to vomit this morning but did not. No urinary complaints. No weakness or numbness He denies smoking, alcohol or illicit drugs Vitals are stable and he is saturating 96% on room air. Labs were reviewed including unremarkable CBC except for mild lymphopenia at 0.7, INR is 1.0. Sodium is 124, carbon dioxide 17, creatinine 1.1, glucose 220 Liver enzymes not elevated. Troponin is high as 0.418, C-reactive protein 2.0. ProBNP is 4880 Coronavirus not detected. EKG showing normal sinus rhythm at 85 with first-degree AV block and incomplete right bundle branch block, no significant ST-T changes. Chest x-ray: Interstitial pulmonary edema with increased cardiomegaly In the emergency room patient was started on IV Lasix 40 mg every 8 hours and cardiology team were consulted. 07/17/2021 Patient breathing is better, he does not complain from jaw pain or neck pain anymore, he is breathing easier, less leg edema. Patient is continued on IV Lasix 40 mg twice daily, also he is on heparin drip His sodium is improved today to 1.7 however his creatinine went up to 1.4. Because of his worsening kidney function we hold his metformin and switch him to Amaryl 2 mg daily, patient informed of his uncontrolled diabetes as his hemoglobin A1c is a 42.6%. Echocardiogram showed ejection fraction of 30-35% with moderate mitral regurgitation, 2018 8 was 55-60% Patient possibly will go for cardiac cath tomorrow 07/18/2021 Patient feels better, his breathing is easier. He has no more jaw pain, leg swelling is significantly improved he has crepitationandonlyminimal. He has some wheezing during examination most likely secondary to his CHF, patient is nonsmoker with no history of COPD. He is hemodynamically stable, he is on room air. Creatinine is trending up 1.1, 1.4, and 1.58 today. However sodium significantly improved up to 133. His Lasix was switched to 40 mg by mouth daily. His glucose is controlled 136 and 142 after he was started on Amaryl today we will keep monitoring, metformin was held for his acute kidney injury. He has slight ejection fraction of 30-35% with moderate MR and he needs cardiac cath however it is on hold now to further evaluation for his kidney injury, most likely secondary to diuresis, nephrology team was consulted, renal ultrasound is pending. 81 mg 07/19/2021 Patient breathing is improved close to normal however he has some residual basal crepitation which is mild. Very minimal leg swelling. No much exertional dyspnea. And his diuretics are switched to oral dose again Lasix 40 mg daily His creatinine improved 1.3 from 1.8 yesterday. Glucose less than 150. After switching his metformin and to Amaryl 2 mg daily. Hemoglobin A1c is 8.6% Plan for him to go for cardiac cath today. Renal ultrasound showing no hydronephrosis. Tenderness on home dose of aspirin 81 mg, oral Lasix and metoprolol 07/20/2021 Today with minimal dyspnea however he still have bilateral basal crepitation and leg edema, he is saturating 95-96% on 2 L oxygen via nasal cannula. His creatinine slightly up to 1.5. Glucose controlled. Renal ultrasound showing no hydronephrosis. Cardiac cath yesterday showing severe triple coronary artery disease, referred to thoracic surgery been consulted for possible CABG 07/21/2021 Patient currently sitting in bed looks comfortable, no chest pain, no significant dyspnea. Using his incentive spirometry frequently. He is cu rrently kept on heparin drip. Minimal leg swelling, mild basal crepitation. He is hemodynamically stable. He is saturating 97% on 2 L oxygen via nasal cannula. His sodium 132, creatinine improved to 1.28, glucose controlled while he is on Amaryl 2 mg. His metformin, metoprolol and lisinopril are on hold for hypertension acute kidney injury. Patient currently has been worked up for possible cardiac bypass surgery with cardiovascular surgery team on the case. 07/22/2021 Patient is going for cardiac bypass surgery today. This with no chest pain or dyspnea. Hemodynamically stable. Glucose controlled however it might be needed to be started on insulin drip. Most likely patient will go to the intensive care unit post procedure. We will follow up with him 07/23/2021 Patient status post multiple vessel coronary artery bypass grafting for severe triple coronary artery disease and aortic valve replacement for severe aortic stenosis and today is postop day #1. Patient was sitting in chair, awake but very drowsy however he is able to follow commands with minimal movement. Because of his generalized weakness. Patient has hypotension that required pressors in the form of vasodepressor at 0.03 and levophed at 0.14. Also he has some low-grade temperature at 100.9. He is tachypneic at 29, oxygen saturation and requirements is at 4 L/m. He developed postoperative hyperkalemia at 6.3, corrected with 10 units of insulin and D50 ample down to 5.1. He has drop of hemoglobin down to 7.3 and he is getting 1 unit of blood transfusion. Platelet count 108. Sodium is 132, creatinine 1.6 which is close to baseline as he has chronic kidney disease. Never enzymes significantly elevated with AST 568 and ALT 343. Chest x-ray showing no mild pulmonary vascular congestion and receives one-time dose of IV Lasix 20 mg Also he is on insulin drip while metformin and Amaryl are on hold. Blood pressure medication of metoprolol and lisinopril were held prior to surgery because of hypotension and acute kidney injury. Patient currently kept on home dose of aspirin 81 mg and added Mavik 75 mg 07/24/2021 Patient sitting in chair, his mentation improving today and he follows commands with no difficulty moving her arms or legs but he looks very tired and lethargic. Blood pressure is 93/74. Heart rate is around 70. He had no fever today and his respiratory rate is 24-28 and his oxygen saturation is acceptable and 2 L/m of oxygen. His sodium is 140, creatinine stable at 1.6 but liver enzymes trending up to 1133 and AST and ALT is still up about 497. Glucose controlled on insulin drip. He received one unit of blood transfusion in hemoglobin went up 7.38 to 9.1. Platelets 85K. Lipase is normal at 7.3. Chest x-ray showing postsurgical changes and chest tubes are unchanged in pos ition while there is decrease in vascular congestion. His pO2 was one and he is currently on BiPAP with FiO2 of 40%. He remains on amiodarone drip which is added for new onset A. fib. Also his continued on aspirin 81 mg which is home dose and added Plavix in the hospital. 07/25/2021 Patient remains monitored closely in the ICU under critical condition, he is very lethargic but awake and follow commands. His blood pressure is 108/59 and 80/40. That needs pressors. Heart rate is 94. Labs reviewed showing AST is 571 which is improving and ALT fourth 97. Glucose is controlled but around 200. Bilirubin is elevated at 2.1. Her hemoglobin is stable at 10.2. Platelet to 62K and white BC is 10 K. Chest x-ray showing no change with cardiomegaly and bibasilar infiltrates. Ejection fraction is still low at 25-30%. Patient remains on many risks are slightly renal. He is on aspirin and Plavix. And antihypertensive medications are on hold.. 07/26/2021 Patient looks less distressed today sitting in chair most of the time, minimal chest pain. Chest tubes in a Place. His blood pressure is 160/50, heart rate 94, sodium 134, creatinine 1.6. ast 264 and alt 385. bilirubin improved 2.1 down to 1.5. glucose is controlled. hemoglobin 9.6, platelet count 76. chest x-ray showing cardiomegaly with a stable chest tube on the left side and left lower lobe infiltrate stable as well. patient today is a started on fondaparinux, also he is on aspirin and plavix, he needed amiodarone. 07/27/2021 Patient is seen and evaluated and follow-up continues to be closely monitored in the ICU. We are following closely with cardiothoracic surgery and multiple medical consultations including nephrology, pulmonary, cardiology are following closely. Patient continues with chest tubes and is currently sitting up in the chair and working with physical therapy. Chest x-ray today shows postoperative findings with probable basilar atelectasis and possible associated effusion. Per nursing staff and patient patient has had multiple episodes of loose stool and will order C. diff. If negative will consider Imodium and monitor for improvement. Blood sugars being closely monitored patient continues on sliding scale. Labs: WBC is 7.0, hemoglobin is 9.8, platelets are 76, sodium is 133, potassium is 3.8, BUN is 43, creatinine is 1.28, calcium is 7.6, AST is 115, ALT 267 Review of systems: Constitutional: No reports of fatigue, fever, or chills Cardiovascular: No reports of chest pain or palpitations Respiratory: No reports of shortness of breath or cough GI: No reports of nausea, vomiting, or diarrhea : No reports of dysuria or retention Neurovascular: No reports of weakness or numbness All medications have been reviewed Active Medications Acetaminophen (Acetaminophen Tab 325 Mg Tab) 650 mg PO Q6HR PRN PRN Reason: Fever and/ or Pain Albuterol/Ipratropium (Ipratropium-Albuterol 3 Ml Neb) 3 ml INHALATION RT-Q2H PRN PRN Reason: Shortness Of Breath Or Wheezing Last Admin: 07/22/21 22:23 Dose: 3 ml Documented by: Albuterol/Ipratropium (Ipratropium-Albuterol 3 Ml Neb) 3 ml INHALATION RT-QID [facility] Last Admin: 07/27/21 15:17 Dose: 3 ml Documented by: Amiodarone HCl (Amiodarone 200 Mg Tab) 400 mg PO BID [facility] Last Admin: 07/27/21 09:00 Dose: 400 mg Documented by: Aspirin (Aspirin 81 Mg) 81 mg PO DAILY [facility] Last Admin: 07/27/21 09:00 Dose: 81 mg Documented by: Bisacodyl (Bisacodyl 10 Mg Supp) 10 mg RECTAL DAILY PRN PRN Reason: Constipation Last Admin: 07/25/21 13:55 Dose: 10 mg Documented by: Clopidogrel Bisulfate (Clopidogrel 75 Mg Tab) 75 mg PO DAILY [facility] Last Admin: 07/27/21 09:00 Dose: 75 mg Documented by: Darbepoetin Zac (Darbepoetin Zac 40 Mcg/0.4 Ml Syringe) 40 mcg SQ Q7D [facility] Last Admin: 07/26/21 11:59 Dose: 40 mcg Documented by: Heparin Sodium (Porcine) (Heparin Sodium,Porcine/Pf 5,000 Unit/0.5 Ml Syringe) 5,000 unit SQ Q8HR [facility] Norepinephrine Bitartrate 4 mg (/ Sodium Chloride) 254 mls @ 6.934 mls/hr IV .Q24H [facility]; Protocol Last Titration: 07/27/21 07:28 Dose: 0.02 mcg/kg/min, 6.934 mls/hr Documented by: Milrinone Lactate/Dextrose 20 (mg/ IV Solution) 100 mls @ 0 mls/hr IV .Q0M [facility]; Protocol Last Admin: 07/26/21 19:49 Dose: 0.3 mcg/kg/min, 8.19 mls/hr Documented by: Calcium Gluconate 2 gm/ Sodium (Chloride) 120 mls @ 100 mls/hr IVPB ONCE PRN PRN Reason: Ionized Calcium less than 4.4 Stop: 08/21/21 23:00 Sodium Chloride (Saline 0.9%) 1,000 mls @ 20 mls/hr IV .Q24H [facility] Last Admin: 07/26/21 20:33 Dose: 20 mls/hr Documented by: Ferric Sodium Gluconate 125 mg (/ Sodium Chloride) 110 mls @ 100 mls/hr IVPB DAILY [facility] Stop: 07/30/21 09:31 Last Admin: 07/27/21 09:30 Dose: 100 mls/hr Documented by: Insulin Aspart (Insulin Aspart (Novolog) 100 Unit/Ml Vial) 0 unit SQ [id number] [facility]; Protocol Last Admin: 07/27/21 11:52 Dose: Not Given Documented by: Magnesium Hydroxide (Magnesium Hydroxide 2,400 Mg/10 Ml Cup) 2,400 mg PO BID PRN PRN Reason: Constipation Midodrine (Midodrine 5 Mg Tab) 10 mg PO AC-TID [facility] Last Admin: 07/27/21 12:41 Dose: 10 mg Documented by: Miscellaneous Information (Magnesium Replacement Protocol 1 Each Misc) 1 each MISCELLANE DAILY PRN; Protocol PRN Reason: Per Protocol Miscellaneous Information (Phosphorus Replacement Protoco 1 Each Misc) 1 each MISCELLANE DAILY PRN; Protocol PRN Reason: Per Protocol Miscellaneous Information (Potassium Replacement Protocol 1 Each Misc) 1 each MISCELLANE DAILY PRN; Protocol PRN Reason: Per Protocol Miscellaneous Information (Potassium Replacement Protocol 1 Each Misc) 1 each MISCELLANE DAILY PRN; Protocol PRN Reason: Per Protocol Ondansetron HCl (Ondansetron 4 Mg/2 Ml Vial) 4 mg IVP Q6HR PRN PRN Reason: Nausea And Vomiting Pantoprazole Sodium (Pantoprazole 40 Mg Tablet) 40 mg PO AC-BRKFST [facility] Last Admin: 07/27/21 07:04 Dose: 40 mg Documented by: Senna/Docusate Sodium (Sennosides-Docusate Sodium 1 Each Tab) 2 each PO HS PRN PRN Reason: Constipation Sodium Chloride (Sodium Chloride 0.9% Flush 10 Ml Syringe) 10 ml IV BID [facility] Last Admin: 07/27/21 09:00 Dose: 10 ml Documented by: Physical exam: GENERAL: The patient is alert and oriented x3, not in any acute distress. Well developed, well nourished. HEENT: Pupils are round and equally reacting to light. EOMI. No scleral icterus. No conjunctival pallor. Normocephalic, atraumatic. No pharyngeal erythema. No thyromegaly. CARDIOVASCULAR: S1 and S2 present. No murmurs, rubs, or gallops. -PULMONARY: Chest is clear to auscultation, no wheezing . Bilateral basal crepitation ABDOMEN: Soft, nontender, nondistended, normoactive bowel sounds. No palpable organomegaly. MUSCULOSKELETAL: No joint swelling or deformity. -EXTREMITIES: No cyanosis, clubbing, . Bilateral pitting leg edema. NEUROLOGICAL: Gross neurological examination did not reveal any focal deficits. SKIN: No rashes. No petechiae Assessment: severe triple coronary artery disease, status post multiple vessel CABG Severe aortic stenosis status post aortic valve replacement Acute systolic heart failure, , ischemic cardiomyopathy is suspected with ejection fraction of 30-35% NSTEMI Acute kidney injury, suspected secondary to diuresis. On the top of his chronic kidney disease stage III Hypotension requiring pressors postoperatively, patient is off pressors Postoperative anemia requiring 1 unit of blood transfusion, hemoglobin has stabi lized and is currently 9.8 today Sore throat, improved, coronavirus is negative Hyponatremia Diabetes mellitus, With hyperglycemia upon admission . Hemoglobin A1c is 8.6% Hypertension Hyperlipidemia GI prophylaxis DVT prophylaxis full code Plan: this is a pleasant 75 years old male who presents with possible acute CHF and high troponin. Cardiothoracic surgery as admitting for CABG on 07/22 Continue to monitor blood pressure Continue with aspirin and Plavix Recommend Accu-Cheks before meals at bedtime and monitoring glucose while keeping the patient on insulin sliding scale Cardiology, pulmonary, nephrology following and cardiology recommending patient will need AICD upon discharge Monitor hemoglobin, hemoglobin is stable at 9.8 today Will continue to follow along closely with CT surgery during hospitalization Prognosis is guarded Objective - Vital Signs Vital signs: Vital Signs Temp 98.6 F 07/25/21 12:15 Pulse 85 07/27/21 06:45 Resp 15 07/27/21 07:00 BP 123/72 07/27/21 07:00 Pulse Ox 96 07/27/21 07:00 Intake & Output 07/26/21 07/27/21 07/27/21 18:59 06:59 18:59 Intake Total 2445.976 592.495 103.812 Output Total 805 680 140 Balance 1640.976 -87.505 -36.188 Weight 103.4 kg Intake: IV 631 371 28 CARDIAC OUTPUT 0.9 Sodium 100 60 Chloride Calcium Gluconate 1 gm In 100 Sodium Chloride 0.9% 100 ml @ 100 mls/hr IVPB ONCE ONE Rx#:[id number] PRESSURE BAG 0.9 Sodium 111 36 3 Chloride Sodium Chloride 0.9% 1, 300 275 25 000 ml @ 20 mls/hr IV . Q24H [facility] Rx#:[id number] Sodium Chloride 0.9% 50 20 ml @ 0.01 UNITS/MIN 1.53 mls/hr IVPB .Q24H [facility] with Vasopressin 20 unit Rx#:[id number] Intake, IV Titration 314.976 221.495 75.812 Amount Milrinone-D5w Pmx 20 mg 95.914 98.553 In Dextrose/Water 1 100ml .bag @ Per Protocol IV . Q0M [facility] Rx#:[id number] Norepinephrine 4 mg In 219.062 122.942 75.812 Sodium Chloride 0.9% 250 ml @ 0.02 MCG/KG/MIN 6. 934 mls/hr IV .Q24H [facility] Rx#:[id number] Oral 1500 Output: Chest Tube Drainage 310 90 100 Chest Tube Left Lateral 310 90 100 Chest Urine 495 590 40 Other: Voiding Method Indwelling Catheter Indwelling Catheter # Bowel Movements 1 1 ABP, PAP, CO, CI - Last Documented Arterial Blood Pressure 104/50 Pulmonary Artery Pressure 33/20 Cardiac Output 3.8 Cardiac Index 1.8 - Labs CBC & Chem 7: 07/28/21 04:25 07/28/21 04:25 Labs: Abnormal Lab Results - Last 24 Hours (Table) 07/26/21 07/26/21 07/26/21 Range/Units 08:32 08:36 11:56 RBC (4.30-5.90) m/uL Hgb (13.0-17.5) gm/dL Hct (39.0-53.0) % RDW (11.5-15.5) % Plt Count (150-450) k/uL Lymphocytes # (1.0-4.8) k/uL ABG pH 7.47 H (7.35-7.45) ABG pCO2 32 L (35-45) mmHg ABG pO2 26 L* (83-108) mmHg ABG HCO3 26 H (21-25) mmol/L ABG Total CO2 27 H (19-24) mmol/L ABG O2 Saturation 98.0 H 41.4 L (94-97) % Sodium (137-145) mmol/L BUN (9-20) mg/dL Creatinine (0.66-1.25) mg/dL POC Glucose (mg/dL) 111 H (75-99) mg/dL Calcium (8.4-10.2) mg/dL Total Bilirubin (0.2-1.3) mg/dL AST (17-59) U/L ALT (4-49) U/L Total Protein (6.3-8.2) g/dL Albumin (3.5-5.0) g/dL 07/26/21 07/26/21 07/26/21 Range/Units 15:20 16:57 20:11 RBC (4.30-5.90) m/uL Hgb (13.0-17.5) gm/dL Hct (39.0-53.0) % RDW (11.5-15.5) % Plt Count (150-450) k/uL Lymphocytes # (1.0-4.8) k/uL ABG pH (7.35-7.45) ABG pCO2 (35-45) mmHg ABG pO2 26 L* (83-108) mmHg ABG HCO3 (21-25) mmol/L ABG Total CO2 26 H (19-24) mmol/L ABG O2 Saturation 43.3 L (94-97) % Sodium (137-145) mmol/L BUN (9-20) mg/dL Creatinine (0.66-1.25) mg/dL POC Glucose (mg/dL) 106 H 208 H (75-99) mg/dL Calcium (8.4-10.2) mg/dL Total Bilirubin (0.2-1.3) mg/dL AST (17-59) U/L ALT (4-49) U/L Total Protein (6.3-8.2) g/dL Albumin (3.5-5.0) g/dL 07/27/21 07/27/21 07/27/21 Range/Units 04:20 04:20 05:57 RBC 3.06 L (4.30-5.90) m/uL Hgb 9.8 L (13.0-17.5) gm/dL Hct 29.6 L (39.0-53.0) % RDW 15.6 H (11.5-15.5) % Plt Count 76 L (150-450) k/uL Lymphocytes # 0.7 L (1.0-4.8) k/uL ABG pH (7.35-7.45) ABG pCO2 33 L (35-45) mmHg ABG pO2 (83-108) mmHg ABG HCO3 (21-25) mmol/L ABG Total CO2 (19-24) mmol/L ABG O2 Saturation 98.3 H (94-97) % Sodium 133 L (137-145) mmol/L BUN 43 H (9-20) mg/dL Creatinine 1.28 H (0.66-1.25) mg/dL POC Glucose (mg/dL) (75-99) mg/dL Calcium 7.6 L (8.4-10.2) mg/dL Total Bilirubin 1.5 H (0.2-1.3) mg/dL AST 115 H (17-59) U/L ALT 267 H (4-49) U/L Total Protein 4.6 L (6.3-8.2) g/dL Albumin 2.4 L (3.5-5.0) g/dL 07/27/21 Range/Units 06:59 RBC (4.30-5.90) m/uL Hgb (13.0-17.5) gm/dL Hct (39.0-53.0) % RDW (11.5-15.5) % Plt Count (150-450) k/uL Lymphocytes # (1.0-4.8) k/uL ABG pH (7.35-7.45) ABG pCO2 (35-45) mmHg ABG pO2 (83-108) mmHg ABG HCO3 (21-25) mmol/L ABG Total CO2 (19-24) mmol/L ABG O2 Saturation (94-97) % Sodium (137-145) mmol/L BUN (9-20) mg/dL Creatinine (0.66-1.25) mg/dL POC Glucose (mg/dL) 132 H (75-99) mg/dL Calcium (8.4-10.2) mg/dL Total Bilirubin (0.2-1.3) mg/dL AST (17-59) U/L ALT (4-49) U/L Total Protein (6.3-8.2) g/dL Albumin (3.5-5.0) g/dL
[2021-07-28] MEDS ORDERED: FUROSEMIDE 10 MG/ML 4 ML VIAL IV STA (09:51)
--- NOTE | 2021-07-28 09:56 | P.PN ---
Subjective Progress Note Date: 07/28/21 Principal diagnosis: Triple-vessel coronary artery disease, non-STEMI and admission, acute systolic heart failure present on admission, EF 30-35%, first-degree heart block, paroxys mal episodes of second-degree and complete heart block this admission, acute kidney injury, elevated CRP, pro-calcitonin on admission. Previous medical history of hypertension, hyperlipidemia, [id number] diabetes, never smoker, family history of heart disease, remains unvaccinated against covid POD #6 triple-vessel coronary artery bypass grafting using the left internal mammary artery to the left anterior descending coronary artery, reverse greater saphenous vein graft from the aorta to the second obtuse marginal coronary artery, and reverse greater saphenous vein graft from the aorta to the third obtuse marginal coronary artery. Aortic valve replacement using a 23 mm pericardial bioprosthetic Inspiris. Bilateral pulmonary vein isolation using bipolar radiofrequency energy from Atricure, exclusion of the left atrial appendage using a 40 mm Atriclip, intraoperative transesophageal echocardiogram, epi-aortic scanning and graft flow measurements using the Diabeto-Stim system. Endoscopic harvesting of left greater saphenous vein from the ankle to the groin, and right greater saphenous vein from just below the knee to the groin. Postoperative acute blood loss anemia, expected given hemodilution and cardiopulmonary bypass. Hypotension, multifactorial, could be secondary to his ejection fraction of 30- 35%. Paroxysmal atrial fibrillation, a known common occurrence after cardiac surgery and expected due to his known preoperative atrial fibrillation. The patient was seen and examined this morning sitting up in the recliner in the ICU in no acute distress. He denies any pain or shortness of breath, states he feels pretty good. Continues to be atrially paced at 86 BPM this morning, underlying rhythm sinus rhythm with 1st degree AVB with heart rate in the low 70s. Remains on IV Primacor, off levo, continuing to hold beta jose raul and statin therapy. Received IV lasix and concentrated albumin yesterday with excellent urine output and decreased weight. Right internal jugular Granville/Cordis, left radial arterial line, left pleural chest tube remaine present. Patient does clinically appear a bit more stable and is in very good spirits. He ambulated in the hallway yesterday of couple of times with PT/OT, tolerated well. Objective - Vital Signs Vital signs: Vital Signs Temp 97.7 F 07/28/21 04:00 Pulse 88 01/20/22 07:43 Resp 18 07/28/21 07:43 BP 123/72 07/28/21 05:00 Pulse Ox 98 07/28/21 06:00 Intake & Output 07/27/21 07/28/21 07/28/21 18:59 06:59 18:59 Intake Total 449.812 740.439 Output Total 2060 700 Balance -1610.188 40.439 Weight 102.4 kg Intake: IV 374 307 CARDIAC OUTPUT 0.9 Sodium 30 110 Chloride PRESSURE BAG 0.9 Sodium 69 72 Chloride Sodium Chloride 0.9% 1, 275 125 000 ml @ 20 mls/hr IV . Q24H [facility] Rx#:[id number] Intake, IV Titration 75.812 183.439 Amount Milrinone-D5w Pmx 20 mg 100 In Dextrose/Water 1 100ml .bag @ Per Protocol IV . Q0M [facility] Rx#:[id number] Norepinephrine 4 mg In 75.812 83.439 Sodium Chloride 0.9% 250 ml @ 0.02 MCG/KG/MIN 6. 934 mls/hr IV .Q24H [facility] Rx#:[id number] Oral 250 Output: Chest Tube Drainage 265 130 Chest Tube Left Lateral 265 130 Chest Urine 1795 570 Other: Voiding Method Indwelling Catheter Indwelling Catheter ABP, PAP, CO, CI - Last Documented Arterial Blood Pressure 113/53 Pulmonary Artery Pressure 28/16 Cardiac Output 5.5 Cardiac Index 2.6 - Exam CONSTITUTIONAL: Appears comfortable, cooperative, no acute distress RESPIRATORY: Lungs sounds diminished bilaterally. Respirations even, nonlabored. Currently on room air with oxygen saturation 95%. Able to achieve 1000 mL on incentive spirometry. Strong cough. CARDIOVASCULAR: S1, S2 present. Regular rate and rhythm, atrially paced at 86 bpm with underlying rhythm sinus with first-degree AV block. Sternum stable. Palpable peripheral pulses bilaterally. Generalized edema present. No calf pain or tenderness noted. Heart hugger in place with patient demonstrating appr opriate use. Antiembolism stockings, SCDs present. GASTROINTESTINAL: Abdomen soft, nontender, nondistended. Active bowel sounds present 4 quadrants. Tolerating diet. Positive liquid stool-negative for Cdiff GENITOURINARY: Nava present draining clear, yellow urine. Output overnight 30-60 mL per hour, 2365 mL in the last 24 hours INTEGUMENTARY: Skin is warm and dry with evidence of good perfusion. Anterior chest incision well approximated and covered with dry intact dressing. Bilateral EVH sites well approximated without redness or drainage. NEUROLOGIC: Cranial nerves II through XII intact MUSKULOSKELETAL: Able to move all extremities, strength equal bilaterally, gait normal PSYCHIATRIC: Alert and oriented to person place and time, appropriate affect, intact judgment and insight INVASIVE LINES AND TUBES: Left pleural chest tube present and connected to wall suction, no air leaks present, 105 mL serosanguineous drainage overnight, 400 mL in the last 24 hours. A/V epicardial pacemaker wires present, connected to generator, AAI mode with rate 86 bpm. Right internal jugular Granville/Cordis, left radial arterial line present. Last CO/CI 5.5/2.6, PA 34/17, CVP 11. - Allied health notes Allied health notes reviewed: nursing - Labs CBC & Chem 7: 07/28/21 04:25 07/28/21 04:25 Labs: Abnormal Lab Results - Last 24 Hours (Table) 07/27/21 07/27/21 07/27/21 Range/Units 11:29 16:14 20:31 RBC (4.30-5.90) m/uL Hgb (13.0-17.5) gm/dL Hct (39.0-53.0) % RDW (11.5-15.5) % Plt Count (150-450) k/uL Sodium (137-145) mmol/L BUN (9-20) mg/dL Glucose (74-99) mg/dL POC Glucose (mg/dL) 123 H 170 H 124 H (75-99) mg/dL Calcium (8.4-10.2) mg/dL AST (17-59) U/L ALT (4-49) U/L Total Protein (6.3-8.2) g/dL Albumin (3.5-5.0) g/dL 07/28/21 07/28/21 07/28/21 Range/Units 01:51 04:25 04:25 RBC 2.92 L (4.30-5.90) m/uL Hgb 9.5 L (13.0-17.5) gm/dL Hct 28.4 L (39.0-53.0) % RDW 15.9 H (11.5-15.5) % Plt Count 88 L (150-450) k/uL Sodium 133 L (137-145) mmol/L BUN 39 H (9-20) mg/dL Glucose 141 H (74-99) mg/dL POC Glucose (mg/dL) 142 H (75-99) mg/dL Calcium 7.7 L (8.4-10.2) mg/dL AST 63 H (17-59) U/L ALT 193 H (4-49) U/L Total Protein 4.5 L (6.3-8.2) g/dL Albumin 2.4 L (3.5-5.0) g/dL 07/28/21 Range/Units 08:10 RBC (4.30-5.90) m/uL Hgb (13.0-17.5) gm/dL Hct (39.0-53.0) % RDW (11.5-15.5) % Plt Count (150-450) k/uL Sodium (137-145) mmol/L BUN (9-20) mg/dL Glucose (74-99) mg/dL POC Glucose (mg/dL) 237 H (75-99) mg/dL Calcium (8.4-10.2) mg/dL AST (17-59) U/L ALT (4-49) U/L Total Protein (6.3-8.2) g/dL Albumin (3.5-5.0) g/dL - Imaging and Cardiology Chest x-ray: report reviewed, image reviewed Assessment and Plan Assessment: 1. Triple-vessel coronary artery disease, non-STEMI and admission, status post three-vessel CABG 2. Acute systolic heart failure present on admission, EF 30-35% 3. First-degree heart block, paroxysmal episodes of second-degree and complete heart block this admission 4. Acute kidney injury 5. Elevated CRP, pro-calcitonin on admission 6. Aortic stenosis, status post bioprosthetic aortic valve replacement 7. History of hypertension 8. History of hyperlipidemia, treated, cholesterol 129, LDL 71 9. Rko-sieotqp-gcdrbtnxk diabetes, hemoglobin A1c 8.6% 10. Never smoker, preoperative FEV1 72% of predicted 11. Family history of heart disease 12. Remains unvaccinated against covid 13. Preoperative as well as postoperative paroxysmal atrial fibrillation, stat us post bilateral pulmonary vein isolation and left atrial appendage ligation 14. Postoperative acute blood loss anemia, expected 15. Hypotension, multifactorial 16. Transaminitis, trending downward 17. Thrombocytopenia, expected, HIT negative Plan: 1. Continue low-dose aspirin and Plavix. Continue to hold beta jose raul this time due to episodes of bradycardia, first degree, second degree and complete heart block preoperatively. Will start beta jose raul when able to tolerate. 2. Continue to hold statin at this time due to his elevated liver enzymes. Once his liver enzymes are normalized we will restart his statin, liver enzymes are trending down. 3. Encourage incentive spirometry use 10 times every hour while awake. Bronchodilators per pulmonology/critical care medicine. 4. Increase activity, ambulate as tolerated. PT/OT/cardiac rehab following. 5. Will monitor daily labs and chest x-rays. Electrolyte replacement per protocol. Avoid nephrotoxic agents. Will give concentrated albumin followed by 40 mg IV push Lasix 1, okay with Dr. Carpenter 6. GI/DVT prophylaxis. 7. Insulin management per primary care service. The patient needs tight gluc ose control to prevent sternal wound infection and promote healing. 8. Discontinue right IJ Cordis and Granville-Adalberto. Decrease Primacor drip to 0.2 mcg/kg/min and connect to peripheral IV 9. Pain control with current medication regimen. 10. Will discontinue left pleural chest tube 11. Discontinue Nava catheter, may bladder scan and straight cath for >300 mL residual 12. Strict accurate intake and output. 13. Continue atrial and ventricular epicardial pacemaker wires, keep pacemaker generator at an AAI of 86 BPM. 14. Will give 2 g calcium gluconate IV piggyback 1 15. Continue Midodrine 10 mg by mouth 3 times a day. 16. Continue Amiodarone. No anticoagulation at this point 17. Decision regarding placement of permanent pacemaker/biventricular ICD per Dr. Morse 18. C. diff samples sent per primary care, negative, stool softners changed to PRN 19. More recommendations to follow based on patient's clinical course. Time with Patient: Greater than 30
[2021-07-28] MEDS ORDERED: ALBUMIN HUMAN 25% 50 ML in EMPTY BAG 1 BAG IVPB ONE (10:00)
[2021-07-28] MEDS: SODIUM FERRIC GLUCONAT-SUCROSE 125 MG in SODIUM CHLORIDE 0.9% 100 ML IVPB SCH ×2 (10:31→10:59)
[2021-07-28 11:15] LABS: Glucose,Whole Blood 224 mg/dL (75-99)
[2021-07-28] MEDS: POTASSIUM CHLORIDE ER 20 MEQ TAB.ER PO STA ×2 (11:41→11:54)
[2021-07-28] MEDS ORDERED: POTASSIUM CHLORIDE ER 20 MEQ TAB.ER PO STA (11:53)
--- NOTE | 2021-07-28 12:15 | P.PN ---
Subjective Progress Note Date: 07/28/21 Patient is a 75-year-old male postop day 6 of a triple vessel coronary artery bypass grafting and bioprosthesis aortic valve replacement. He is known history of coronary artery disease, ischemic cardiomyopathy, congestive heart failure, hyperlipidemia, hypertension, diabetes. He is seen today resting in the chair awake and alert doing well. He has mild pedal edema. He denies chest pain, palpitations, dizziness, dyspnea. His hypotension has improved and he's vasopressors have been turned off. He is maintaining his own blood pressure 128/73. Patient remains a paced on the monitor with a controlled heart rate of 85. He continues on by mouth amiodarone. Anticoagulation remains on hold due to thrombocytopenia him a platelets 88 today. Stat remains on hold due to increased liver function test. Will continue to monitor patient's blood pressure if remains stable and off vasopressors will consider starting beta jose raul and ALEJO inhibitor tomorrow. Patient's blood pressure is 128/73, heart rate 63 respirations 15, 96% on room air, afebrile. Patient continues on aspirin 81 mg daily, Plavix 75 mg daily midodrine 10 mg 3 times a day, PO amiodarone 400 mg BID, Milrinone DIAGNOSTICS: Telemetry shows patient atrial paced Chest x-ray showed cardiomegaly, left greater than right basilar infiltrates and/or wall bilateral pleural effusions areasignificant change from prior Labs reviewedhemoglobin 9.5 platelet 88, sodium 133, BUNs 39, creatinine 1.2, potassium 3.7, AST 63, ALT 193 Objective - Vital Signs Vital signs: Vital Signs Temp 98.8 F 07/28/21 08:00 Pulse 86 07/28/21 11:00 Resp 28 H 07/28/21 11:00 BP 123/72 07/28/21 10:00 Pulse Ox 96 07/28/21 11:00 Intake & Output 07/27/21 07/28/21 07/28/21 18:59 06:59 18:59 Intake Total 449.812 740.439 139 Output Total 2060 700 250 Balance -1610.188 40.439 -111 Weight 102.4 kg Intake: IV 374 307 139 CARDIAC OUTPUT 0.9 Sodium 30 110 20 Chloride PRESSURE BAG 0.9 Sodium 69 72 24 Chloride Sodium Chloride 0.9% 1, 275 125 95 000 ml @ 20 mls/hr IV . Q24H [facility] Rx#:[id number] Intake, IV Titration 75.812 183.439 Amount Milrinone-D5w Pmx 20 mg 100 In Dextrose/Water 1 100ml .bag @ Per Protocol IV . Q0M [facility] Rx#:[id number] Norepinephrine 4 mg In 75.812 83.439 Sodium Chloride 0.9% 250 ml @ 0.02 MCG/KG/MIN 6. 934 mls/hr IV .Q24H [facility] Rx#:[id number] Oral 250 Output: Chest Tube Drainage 265 130 50 Chest Tube Left Lateral 265 130 50 Chest Urine 1795 570 200 Other: Voiding Method Indwelling Catheter Indwelling Catheter ABP, PAP, CO, CI - Last Documented Arterial Blood Pressure 113/41 Pulmonary Artery Pressure 28/16 Cardiac Output 5.5 Cardiac Index 2.6 - Exam PHYSICAL EXAM: VITAL SIGNS: Reviewed. GENERAL: Well-developed in no acute distress. HEENT: Head is normocephalic. Pupils are equal, round. Sclerae anicteric. Mucous membranes of the mouth are moist. NECK: Supple. No JVD or thyromegaly RESPIRATORY: Respirations even and unlabored. Lungs diminished to auscultation bilaterally. CARDIO: irregular rate and rhythm. S1 and S2 heard. No murmur or gallops. EXTREMITIES: Normal range of motion. No clubbing or cyanosis. Peripheral pulses intact. mild bilateral pedal edema NEURO: Orientated to person, time, mood is appropriate - Labs CBC & Chem 7: 07/28/21 04:25 07/28/21 04:25 Labs: Abnormal Lab Results - Last 24 Hours (Table) 07/27/21 07/27/21 07/28/21 Range/Units 16:14 20:31 01:51 RBC (4.30-5.90) m/uL Hgb (13.0-17.5) gm/dL Hct (39.0-53.0) % RDW (11.5-15.5) % Plt Count (150-450) k/uL Sodium (137-145) mmol/L BUN (9-20) mg/dL Glucose (74-99) mg/dL POC Glucose (mg/dL) 170 H 124 H 142 H (75-99) mg/dL Calcium (8.4-10.2) mg/dL AST (17-59) U/L ALT (4-49) U/L Total Protein (6.3-8.2) g/dL Albumin (3.5-5.0) g/dL 07/28/21 07/28/21 07/28/21 Range/Units 04:25 04:25 08:10 RBC 2.92 L (4.30-5.90) m/uL Hgb 9.5 L (13.0-17.5) gm/dL Hct 28.4 L (39.0-53.0) % RDW 15.9 H (11.5-15.5) % Plt Count 88 L (150-450) k/uL Sodium 133 L (137-145) mmol/L BUN 39 H (9-20) mg/dL Glucose 141 H (74-99) mg/dL POC Glucose (mg/dL) 237 H (75-99) mg/dL Calcium 7.7 L (8.4-10.2) mg/dL AST 63 H (17-59) U/L ALT 193 H (4-49) U/L Total Protein 4.5 L (6.3-8.2) g/dL Albumin 2.4 L (3.5-5.0) g/dL 07/28/21 Range/Units 11:13 RBC (4.30-5.90) m/uL Hgb (13.0-17.5) gm/dL Hct (39.0-53.0) % RDW (11.5-15.5) % Plt Count (150-450) k/uL Sodium (137-145) mmol/L BUN (9-20) mg/dL Glucose (74-99) mg/dL POC Glucose (mg/dL) 224 H (75-99) mg/dL Calcium (8.4-10.2) mg/dL AST (17-59) U/L ALT (4-49) U/L Total Protein (6.3-8.2) g/dL Albumin (3.5-5.0) g/dL Assessment and Plan Assessment: Multivessel coronary artery disease status post three-vessel CABG Aortic valve insufficiency status post aortic valve replacement Pericardial effusion without cardiac tamponade Ischemic cardiomyopathy Congestive heart failure with reduced LV systolic function Hypotension Persistent Atrial fibrillation with a controlled ventricular response Thrombocytopenia Plan: Continue to monitor blood pressure, patient is able to maintain blood pressure without the need of vasopressin's, will consider starting beta jose raul and ALEJO inhibitor tomorrow Continue with ELiquis for anticoagulation Continue to monitor thrombocytopenia Continue dual antiplatelet therapy Continue with current all cardiac medications Continue with telemetry monitoring Further recommendations based on clinical course. The above impression and plan of care have been discussed and directed by the signing physician. Praveena Dowling, nurse practitioner, acting as scribe for signing physician.
--- NOTE | 2021-07-28 13:26 | P.PN ---
Subjective Progress Note Date: 07/28/21 On 07/22/2021, patient is seen in intensive care unit following his surgery, patient had a aortic valve replacement with the #23 is parous pericardial bioprosthetic valve, and a three-vessel coronary artery bypass grafting with BAIN to the LAD, SVG to the OM 2 and OM 3, left atrial appendage ligation. Tomasz lopez just arrived to the intensive care unit, intubated, and sedated, on assist-control mode of ventilation with a rate of 16, tidal volume of 500 FiO2 of sent and PEEP of 10. She is currently on 0.9 normal saline at a rate of 50 ML per hour, he is on norepinephrine at 9 mics per minute, vasopressin at 0.02 units/min, primacore at 0.3 mics per kilo per minute, Diprivan and is at 10 mics per kilo per minute. Hemodynamically patient is currently being paced at AAI mode with a rate of 80. Currently blood pressure is 139/48, PA pressures 31/20, CVP is 14, cardiac output is 4.2, cardiac index is 2.0. Patient has 4 chest tubes and mediastinal, 1 right pleural and one left pleural chest tubes, mediastinal chest tubes are connected to the same Pleur-evac, and there is 200 mL of serosanguineous output, left pleural chest tube has 140 mL of sanguinous output and a chest tube with 140 mL of sanguinous output. No air leak. Catheter is in place, and patient is making adequate urine output. Chest x-ray has been reviewed, tube to low intermittent suction. The patient is seen today 07/23/2021 in follow-up in the intensive care unit. This is postoperative day #1 of a triple vessel coronary artery bypass grafting using the BAIN to the LAD, reverse saphenous vein graft to the second obtuse marginal, third obtuse marginal. Aortic valve replacement using a 23 mm pericardial bioprosthetic Inspiris. He was successfully extubated at 10:15 last evening. Currently on 4 L high flow nasal cannula to maintain O2 saturation in the mid 90s. Chest x-ray showing interval development of mild pulmonary vascular congestion and a probable small bilateral effusions. He is sitting up in a chair at the bedside. He is arousable. He drifts off easily. He is oriented 1 to person. Somewhat slow to respond. Very weak. He did have hypotension postoperatively with some acute blood loss anemia. His ejection fraction is 30-35%. He is currently requiring norepinephrine at 0.14 g per kilogram per minute. He is on vasopressin at 0.03 units per minute. Primacor at 0.03 mcg/kg/m. Right IJ Cordis and Reynolds skin catheter in place. Current cardiac output 4.6. Cardiac index 2.2. PA pressures 39/15 with a CVP of 14. He is on insulin drip at 4 units per hour. 0.9% normal saline at 50 MLS per hour. He is currently in an atrial paced rhythm at 80 bpm. Pacer wires in place. Mediastinal, right and left pleural chest tubes remain in place. Urine output is adequate. White count 6.3. Hemoglobin 7.3. Platelets 108. Sodium 136. Potassium 5.0. Bicarb 20. BUN 22. Creatinine 1.62. Blood glucose 127. AST 568. ALT 343. Arterial blood gases revealed a pO2 of 84, P CO2 of 30 and a pH of 7.43. He is continued on heparin subcu for DVT prophylaxis. Protonix for GI prophylaxis. On 07/24/2021, the patient is sitting up on a chair. He is postop day #2 following coronary artery bypass surgery and aortic valve replacement. The patient was extubated and he is currently on oxygen by nasal cannula at 2 L. They did use BiPAP on and off post extubation. He was briefly placed on BiPAP yesterday and currently is on 2 L of oxygen by nasal cannula. He is using incentive spirometer. He is weak. His still lethargic. He is not confused. He is moving all 4 extremities without any limitation. The chest x-ray from today is showing adequate expansion of both lungs. Chest tubes are still in place. Some atelectatic changes in the lung bases bilaterally. No evidence of any pneumothorax. Reynolds-Adalberto catheter remains in a good location. Meanwhile, the patient remains on a combination of inotropes. He is on milrinone running at 0.3 back to respiratory kilogram per minute and he is also on vasopressin at 0.02 units an hour/minutes and he is also on norepinephrine infusion at 0.04 mcg/kg per minute. His cardiac output is at 4.2 with an index of 2. Pulmonary artery pressures of 43/22. Chest tubes are in place. The patient has 2 mediastinal and 1 left pleural chest tube. Output was noted. The output is in order of less than 100 mL over the past shift and there is no evidence of any air leak. The patient's cardiac rhythm is a atrial fibrillation, slightly tachycardic and the patient is going to be started on amiodarone drip. In terms of his other work, the patient had developed an acute kidney injury. Creatinine was up to 1.6. Today's creatinine is still at 1.6 with a BUN of 26. Sodium is at 140, potassium is at 4.6. White cell count is at 7.3 with a hemoglobin of 9.1 and platelet count of 85. Liver function tests are on the rise. ALT is up to 1133 and AST is up to 497. Insulin drip is still running at the rate of 5 units an hour. On 07/25/2021 patient seen in follow-up in the intensive care unit. Today is postoperative day #3, status post aortic valve replacement surgery, and three- vessel coronary artery bypass grafting with a BAIN to the LAD, SVG to the OM 2 and OM 3 and the left atrial appendage ligation. Patient is awake and alert, he is currently up in the recliner, he is mildly short of breath, does not appear to be in acute distress, he did wear BiPAP support during the day yesterday, and last night with pressures of 12 and 5 and FiO2 of 40%. He is currently on 2 L of oxygen. He remains on multiple drips including epinephrine at 0.02 mics per kilo per minute, milrinone remains a 0.4 mics per kilo per minute, amiodarone is a 0.5 mg/m, norepinephrine at 0.05 mics per kilo per minute, 0.9 normal saline at 50 ML per hour, vasopressin at 0.03 units per kilo per hour, and he is currently receiving a blood transfusion which is infusing at 200 mL on hour. His A. fib is currently slightly better controlled although he still mildly tachycardic at rate of 116 BPM, his blood pressure is 121/55, his PA pressure is 41/23, his CVP is 18, his cardiac output is 5.5 and cardiac index is 2.6. His been afebrile, today's chest x-ray has been reviewed showing persistent cardiomegaly with left greater than right bibasilar infiltrates and/or atelectasis and small left pleural effusion without significant change from one day earlier. He is awake and alert, oriented 3, he is answering to questions appropriately, he is still having some surgical incisional discomfort, his pain rating is 6 out of 10. On oral medications for pain control, incentive spirometry effort is 750 mL. Urine output is in the order of 10-30 ML per hour. Today's labs have been reviewed why blood cell count is 10.0, hemoglobin is 10.2, sodium is 134, potassium is 5.1, chloride is 108, CO2 is 13, anion gap was 13, BUN is 41, creatinine is 1.72, lactic acid today was 3.2, calcium was 8.2, total bilirubin was 2.1, AST was 571, ALT was 497, LFTs are improved. On 07/26/2021 patient is seen in follow-up in intensive care unit, he is awake and alert, in no acute distress, he is currently sitting up in the recliner, breathing comfortably, he is on 2 L of oxygen, he did wear BiPAP support overnight with pressures of 12 and 5 and FiO2 of 35%, and his pulse ox has been in the high 90s between 97-98%, patient has been afebrile, denies worsening dyspnea, his incentive spirometry effort is 750 ML. His right-sided chest tube has been removed, and mediastinal chest tubes have been removed, he only has one left pleural chest tube left in place. There has been 200 mL out of the left pleural chest tube in the last 24 hours. Today's chest x-ray shows cardiomegaly, and stable left lower lobe infiltrate, stable in appearance. Patient remains on vasopressors and inotropes, however vasopressin has been discontinued, and epinephrine drip has been discontinued, patient is currently on norepinephrine at 0.04 mics per kilo per minute which is less than he was on yesterday, and Primacor has also been decreased down to 0.3 mics per kilo per minute, his 0.9 normal saline at a rate of 25 ML per hour, he was given amiodarone bolus this morning, his drip has been discontinued, and patient has been switched to oral amiodarone. He was started on Arixtra for anti- coagulation. He remains in atrial fibrillation with the better controlled rate at 98 BPM. His cardiac output this morning is 4.1, and cardiac index is 1.9. His CVP is 7, his blood pressure is 95/44, his PA pressures 27/15. Patient received a dose of IV Lasix yesterday per nephrology and a history of urine output in the last 24 hours was 1360, however overall he is in positive net fluid balance of 2.2 L over the last 24 hours. Mild swelling in his upper and lower extremities. His creatinine is fairly stable, slightly improved, nephrology is following. On 07/28/2021 patient seen in follow-up in the intensive care unit, he is awake and alert, oriented 3, he sitting up in the recliner, breathing very comfortably, he is currently on room air, with pulse ox of 96-97%, he modynamically stable, he is on small amount of Primacor which is being weaned off, and is currently infusing at 0.2 mics per kilo per minute, norepinephrine drip has been discontinued, vasopressin and epinephrine drips have both been discontinued the day before yesterday, patient has converted to sinus mechanism and has remained in sinus mechanism, currently still pacing at a rate of 80 BPM, hemodynamically he has been stable, his latest cardiac output is 4.6, cardiac index is 2.2, his Reynolds-Adalberto catheter will be discontinued today. Full catheter is in place, he is making urine in the order of 40-80 ML per hour. Room air pulse ox is 96-97%, hemodynamically stable, afebrile, his incentive spirometer effort is better today, he is up to a liter on it today compared to 750 on yesterday's exam. His left-sided chest tube remains in place, today's chest x- ray showing persistent cardiomegaly with left greater than right basilar infiltrates and/or atelectasis and small bilateral pleural effusions without significant change compared to yesterday. Today's labs have been reviewed, white blood cell count is 6.2, hemoglobin is 9.5, sodium is 133, potassium is 3.7, chloride is 104, CO2 is 24, BUN of 39, creatinine is 1.2 AST 63, ALT is 193, alkaline phosphatase 72. No nausea vomiting, tolerating oral intake, patient had bowel movements, overall he states he is feeling better, appears to be much more awake and alert, and responsive. He received another dose of IV Lasix today per CT surgery. His been getting intermittent doses of diuretics, over the last 24 hours she is in -1.5 L net fluid balance. Generalized edema is improved. Objective - Vital Signs Vital signs: Vital Signs Temp 98.8 F 07/28/21 08:00 Pulse 86 07/28/21 12:00 Resp 26 H 07/28/21 12:00 BP 123/72 07/28/21 09:00 Pulse Ox 97 07/28/21 12:00 Intake & Output 07/27/21 07/28/21 07/28/21 18:59 06:59 18:59 Intake Total 449.812 740.439 412 Output Total 2060 700 250 Balance -1610.188 40.439 162 Weight 102.4 kg Intake: IV 374 307 162 CARDIAC OUTPUT 0.9 Sodium 30 110 20 Chloride PRESSURE BAG 0.9 Sodium 69 72 27 Chloride Sodium Chloride 0.9% 1, 275 125 115 000 ml @ 20 mls/hr IV . Q24H [facility] Rx#:[id number] Intake, IV Titration 75.812 183.439 Amount Milrinone-D5w Pmx 20 mg 100 In Dextrose/Water 1 100ml .bag @ Per Protocol IV . Q0M [facility] Rx#:[id number] Norepinephrine 4 mg In 75.812 83.439 Sodium Chloride 0.9% 250 ml @ 0.02 MCG/KG/MIN 6. 934 mls/hr IV .Q24H [facility] Rx#:[id number] Oral 250 250 Output: Chest Tube Drainage 265 130 50 Chest Tube Left Lateral 265 130 50 Chest Urine 1795 570 200 Other: Voiding Method Indwelling Catheter Indwelling Catheter ABP, PAP, CO, CI - Last Documented Arterial Blood Pressure 131/49 Pulmonary Artery Pressure 31/16 Cardiac Output 4.6 Cardiac Index 2.2 - Exam GENERAL EXAM: Awake and alert, mild short of breath, 75-year-old white gentlem an, on room air with a pulse ox of 97% sitting in the recliner. patient did not require BiPAP support last night, his dyspnea seems to have improved, patient is breathing more comfortably on today's exam HEAD: Normocephalic/atraumatic. EYES: Normal reaction of pupils, equal size. Conjunctiva pink, sclera white. NOSE: Clear with pink turbinates. THROAT: No erythema or exudates. NECK: No masses, no JVD, no thyroid enlargement, no adenopathy. CHEST: No chest wall deformity. Symmetrical expansion. 2 chest tubes, 2 MS chest tubes have been discontinued, right pleural chest tube has been discontin ued yesterday and left pleural chest tubes, no airleak, moderate sanguineous output LUNGS: Equal air entry with no crackles, wheeze, rhonchi or dullness. CVS: Regular rate and rhythm, normal S1 and S2, no gallops, no murmurs, no rubs ABDOMEN: Soft, nontender. No hepatosplenomegaly, normal bowel sounds, no guarding or rigidity. EXTREMITIES: No clubbing, mild edema in upper and lower extremities, no cyanosis, 2+ pulses and upper and lower extremities. MUSCULOSKELETAL: Muscle strength and tone normal. SPINE: No scoliosis or deformity SKIN: No rashes CENTRAL NERVOUS SYSTEM: awake and oriented 3 No focal deficits, tone is normal in all 4 extremities. - Labs CBC & Chem 7: 07/28/21 04:25 07/28/21 04:25 Labs: Abnormal Lab Results - Last 24 Hours (Table) 07/27/21 07/27/21 07/28/21 Range/Units 16:14 20:31 01:51 RBC (4.30-5.90) m/uL Hgb (13.0-17.5) gm/dL Hct (39.0-53.0) % RDW (11.5-15.5) % Plt Count (150-450) k/uL Sodium (137-145) mmol/L BUN (9-20) mg/dL Glucose (74-99) mg/dL POC Glucose (mg/dL) 170 H 124 H 142 H (75-99) mg/dL Calcium (8.4-10.2) mg/dL AST (17-59) U/L ALT (4-49) U/L Total Protein (6.3-8.2) g/dL Albumin (3.5-5.0) g/dL 07/28/21 07/28/21 07/28/21 Range/Units 04:25 04:25 08:10 RBC 2.92 L (4.30-5.90) m/uL Hgb 9.5 L (13.0-17.5) gm/dL Hct 28.4 L (39.0-53.0) % RDW 15.9 H (11.5-15.5) % Plt Count 88 L (150-450) k/uL Sodium 133 L (137-145) mmol/L BUN 39 H (9-20) mg/dL Glucose 141 H (74-99) mg/dL POC Glucose (mg/dL) 237 H (75-99) mg/dL Calcium 7.7 L (8.4-10.2) mg/dL AST 63 H (17-59) U/L ALT 193 H (4-49) U/L Total Protein 4.5 L (6.3-8.2) g/dL Albumin 2.4 L (3.5-5.0) g/dL 07/28/21 Range/Units 11:13 RBC (4.30-5.90) m/uL Hgb (13.0-17.5) gm/dL Hct (39.0-53.0) % RDW (11.5-15.5) % Plt Count (150-450) k/uL Sodium (137-145) mmol/L BUN (9-20) mg/dL Glucose (74-99) mg/dL POC Glucose (mg/dL) 224 H (75-99) mg/dL Calcium (8.4-10.2) mg/dL AST (17-59) U/L ALT (4-49) U/L Total Protein (6.3-8.2) g/dL Albumin (3.5-5.0) g/dL Assessment and Plan Plan: Assessment: #1. Acute non-ST segment elevated myocardial infarction and multivessel coronary artery disease and severe aortic valve stenosis, status post three- vessel coronary artery bypass grafting with BAIN to the LAD, SVG to the OM 2 and OM 3, and aortic valve replacement on 07/22/2021, patient remains in the intensive care unit, today it is postoperative day #3 on 07/25/2021, continues on multiple drips and inotropes for hemodynamic support. Cardiac output and index are improved on multiple drips and inotropes. Patient has developed an acute kidney injury and shock liver, requiring lnorepinephrine, epinephrine, milrinone and vasopressin. Currently improved, patient is off all vasopressors, currently remains on small dose of milrinone #2. Routine postoperative ventilator management, patient was successfully weaned and extubated on postoperative day #0, currently requiring on and off BiPAP support and nasal cannula with 2 L of oxygen and chest x-ray showing cardiomegaly with left greater than right bibasilar infiltrates and atelectasis small left pleural effusion. 07/28/2021 patient is improving, currently on room air, not requiring BiPAP support, breathing more comfortably, chest x-ray continues to show bibasilar atelectasis, and small pleural effusions, has been receiving intermittent doses of diuretics #3. Acute systolic congestive heart failure with an ejection fraction of 30- 35%. His preop CT chest showed bilateral pleural effusions with cardiomegaly #4. Hypotension, multifactorial, related to postoperative bleeding, and poor ejection fraction, improved. Patient is off vasopressors in the form of norepinephrine at 0.04 mcg/kg/min mics per minute, vasopressin and epinephrin hooker ve been weaned off. Remains on small dose of Primacor #5. Acute hypoxic respiratory failure secondary to pulmonary edema. His preop FEV1 was 72% of predicted. Patient was successfully weaned and extubated on postoperative day #0, however he is requiring on and off BiPAP support with FiO2 of 40% #6. Hypertension #7. Hyperlipidemia #8. Diabetes mellitus type 2 #9. Acute kidney injury likely cardiorenal and related to ATN, currently improved #10. Shock liver, improving #11. Acute blood loss anemia, expected outcome of surgery, patient has received 3 units of packed red blood cells current hemoglobin is 9.5 #12. New onset A. fib with rapid ventricular response currently on oral amio, rate is better controlled, and patient has converted to sinus rhythm on 07/28/2021 Plan: Clinically patient is feeling better, hemodynamically significantly improved, he is on small dose of Primacor, he is off all vasopressors Today's chest x-ray has been reviewed showing small bilateral pleural effusions Patient has received a dose of IV Lasix per CT surgery Patient remaining in negative net fluid balance Patient has converted to sinus rhythm Has not utilized BiPAP support Breathing much more comfortably, his mentation has improved We'll continue to follow his clinical course Encourage deep breathing and coughing I performed a history & physical examination of the patient and discussed their management with my nurse practitioner, Marilu Jiménez. I reviewed the nurse practitioner's note and agree with the documented findings and plan of care. Lung sounds are positive for diffuse wheezes throughout the lung martins. The findings and the impression was discussed with the patient. I attest to the documentation by the nurse practitioner. Time with Patient: Greater than 30
--- NOTE | 2021-07-28 14:37 | P.PN ---
Subjective Progress Note Date: 07/28/21 This is a pleasant 75 years old male with past medical history of Diabetes Mellitus, Hyperlipidemia, Hypertension Patient presents because of the progressive exertional dyspnea and decreased leg swelling over one month, bilateral leg swelling and bilateral neck pain. However yesterday he started getting orthopnea, he could not lay down and his asked him to come to emergency room. Also patient is complaining of from dry cough and sore throat, mouth is making some clear phlegm. He denies chest pain or abdominal pain. No dizziness. He was complaining of from little diarrhea, he felt almost going to vomit this morning but did not. No urinary complaints. No weakness or numbness He denies smoking, alcohol or illicit drugs Vitals are stable and he is saturating 96% on room air. Labs were reviewed including unremarkable CBC except for mild lymphopenia at 0.7, INR is 1.0. Sodium is 124, carbon dioxide 17, creatinine 1.1, glucose 220 Liver enzymes not elevated. Troponin is high as 0.418, C-reactive protein 2.0. ProBNP is 4880 Coronavirus not detected. EKG showing normal sinus rhythm at 85 with first-degree AV block and incomplete right bundle branch block, no significant ST-T changes. Chest x-ray: Interstitial pulmonary edema with increased cardiomegaly In the emergency room patient was started on IV Lasix 40 mg every 8 hours and cardiology team were consulted. 07/17/2021 Patient breathing is better, he does not complain from jaw pain or neck pain anymore, he is breathing easier, less leg edema. Patient is continued on IV Lasix 40 mg twice daily, also he is on heparin drip His sodium is improved today to 1.7 however his creatinine went up to 1.4. Because of his worsening kidney function we hold his metformin and switch him to Amaryl 2 mg daily, patient informed of his uncontrolled diabetes as his hemoglobin A1c is a 42.6%. Echocardiogram showed ejection fraction of 30-35% with moderate mitral regurgitation, 2018 8 was 55-60% Patient possibly will go for cardiac cath tomorrow 07/18/2021 Patient feels better, his breathing is easier. He has no more jaw pain, leg swelling is significantly improved he has crepitationandonlyminimal. He has some wheezing during examination most likely secondary to his CHF, patient is nonsmoker with no history of COPD. He is hemodynamically stable, he is on room air. Creatinine is trending up 1.1, 1.4, and 1.58 today. However sodium significantly improved up to 133. His Lasix was switched to 40 mg by mouth daily. His glucose is controlled 136 and 142 after he was started on Amaryl today we will keep monitoring, metformin was held for his acute kidney injury. He has slight ejection fraction of 30-35% with moderate MR and he needs cardiac cath however it is on hold now to further evaluation for his kidney injury, most likely secondary to diuresis, nephrology team was consulted, renal ultrasound is pending. 81 mg 07/19/2021 Patient breathing is improved close to normal however he has some residual basal crepitation which is mild. Very minimal leg swelling. No much exertional dyspnea. And his diuretics are switched to oral dose again Lasix 40 mg daily His creatinine improved 1.3 from 1.8 yesterday. Glucose less than 150. After switching his metformin and to Amaryl 2 mg daily. Hemoglobin A1c is 8.6% Plan for him to go for cardiac cath today. Renal ultrasound showing no hydronephrosis. Tenderness on home dose of aspirin 81 mg, oral Lasix and metoprolol 07/20/2021 Today with minimal dyspnea however he still have bilateral basal crepitation and leg edema, he is saturating 95-96% on 2 L oxygen via nasal cannula. His creatinine slightly up to 1.5. Glucose controlled. Renal ultrasound showing no hydronephrosis. Cardiac cath yesterday showing severe triple coronary artery disease, referred to thoracic surgery been consulted for possible CABG 07/21/2021 Patient currently sitting in bed looks comfortable, no chest pain, no significant dyspnea. Using his incentive spirometry frequently. He is cu rrently kept on heparin drip. Minimal leg swelling, mild basal crepitation. He is hemodynamically stable. He is saturating 97% on 2 L oxygen via nasal cannula. His sodium 132, creatinine improved to 1.28, glucose controlled while he is on Amaryl 2 mg. His metformin, metoprolol and lisinopril are on hold for hypertension acute kidney injury. Patient currently has been worked up for possible cardiac bypass surgery with cardiovascular surgery team on the case. 07/22/2021 Patient is going for cardiac bypass surgery today. This with no chest pain or dyspnea. Hemodynamically stable. Glucose controlled however it might be needed to be started on insulin drip. Most likely patient will go to the intensive care unit post procedure. We will follow up with him 07/23/2021 Patient status post multiple vessel coronary artery bypass grafting for severe triple coronary artery disease and aortic valve replacement for severe aortic stenosis and today is postop day #1. Patient was sitting in chair, awake but very drowsy however he is able to follow commands with minimal movement. Because of his generalized weakness. Patient has hypotension that required pressors in the form of vasodepressor at 0.03 and levophed at 0.14. Also he has some low-grade temperature at 100.9. He is tachypneic at 29, oxygen saturation and requirements is at 4 L/m. He developed postoperative hyperkalemia at 6.3, corrected with 10 units of insulin and D50 ample down to 5.1. He has drop of hemoglobin down to 7.3 and he is getting 1 unit of blood transfusion. Platelet count 108. Sodium is 132, creatinine 1.6 which is close to baseline as he has chronic kidney disease. Never enzymes significantly elevated with AST 568 and ALT 343. Chest x-ray showing no mild pulmonary vascular congestion and receives one-time dose of IV Lasix 20 mg Also he is on insulin drip while metformin and Amaryl are on hold. Blood pressure medication of metoprolol and lisinopril were held prior to surgery because of hypotension and acute kidney injury. Patient currently kept on home dose of aspirin 81 mg and added Mavik 75 mg 07/24/2021 Patient sitting in chair, his mentation improving today and he follows commands with no difficulty moving her arms or legs but he looks very tired and lethargic. Blood pressure is 93/74. Heart rate is around 70. He had no fever today and his respiratory rate is 24-28 and his oxygen saturation is acceptable and 2 L/m of oxygen. His sodium is 140, creatinine stable at 1.6 but liver enzymes trending up to 1133 and AST and ALT is still up about 497. Glucose controlled on insulin drip. He received one unit of blood transfusion in hemoglobin went up 7.38 to 9.1. Platelets 85K. Lipase is normal at 7.3. Chest x-ray showing postsurgical changes and chest tubes are unchanged in pos ition while there is decrease in vascular congestion. His pO2 was one and he is currently on BiPAP with FiO2 of 40%. He remains on amiodarone drip which is added for new onset A. fib. Also his continued on aspirin 81 mg which is home dose and added Plavix in the hospital. 07/25/2021 Patient remains monitored closely in the ICU under critical condition, he is very lethargic but awake and follow commands. His blood pressure is 108/59 and 80/40. That needs pressors. Heart rate is 94. Labs reviewed showing AST is 571 which is improving and ALT fourth 97. Glucose is controlled but around 200. Bilirubin is elevated at 2.1. Her hemoglobin is stable at 10.2. Platelet to 62K and white BC is 10 K. Chest x-ray showing no change with cardiomegaly and bibasilar infiltrates. Ejection fraction is still low at 25-30%. Patient remains on many risks are slightly renal. He is on aspirin and Plavix. And antihypertensive medications are on hold.. 07/26/2021 Patient looks less distressed today sitting in chair most of the time, minimal chest pain. Chest tubes in a Place. His blood pressure is 160/50, heart rate 94, sodium 134, creatinine 1.6. ast 264 and alt 385. bilirubin improved 2.1 down to 1.5. glucose is controlled. hemoglobin 9.6, platelet count 76. chest x-ray showing cardiomegaly with a stable chest tube on the left side and left lower lobe infiltrate stable as well. patient today is a started on fondaparinux, also he is on aspirin and plavix, he needed amiodarone. 07/27/2021 Patient is seen and evaluated and follow-up continues to be closely monitored in the ICU. We are following closely with cardiothoracic surgery and multiple medical consultations including nephrology, pulmonary, cardiology are following closely. Patient continues with chest tubes and is currently sitting up in the chair and working with physical therapy. Chest x-ray today shows postoperative findings with probable basilar atelectasis and possible associated effusion. Per nursing staff and patient patient has had multiple episodes of loose stool and will order C. diff. If negative will consider Imodium and monitor for improvement. Blood sugars being closely monitored patient continues on sliding scale. 07/28/2021 Patient is seen in follow-up today continues to be in the ICU being closely monitored with multiple medical consultations following. Patient had chest tubes and catheter from the neck removed today and is currently sitting up in the chair on room air. Patient is weak and will require physical therapy. C. diff testing was negative and patient continues with some loose stool and will add Imodium. Chest x-ray today shows persistent cardiomegaly with left greater than right bibasilar infiltrates and/or atelectasis and small bilateral pleural effusion are redemonstrated with no significant change. Patient does have incentive spirometer at the bedside and encourage the patient to continue using at least 10 times every hour while awake. Labs: WBC is 6.2, hemoglobin is 9.5, platelets are 88, sodium is 133, potassium 3.7, BUN 39, creatinine 1.20, calcium 7.7, AST 63, ALT 193 Review of systems: Constitutional: No reports of fatigue, fever, or chills Cardiovascular: No reports of chest pain or palpitations Respiratory: No reports of shortness of breath or cough GI: No reports of nausea, vomiting, reports continued diarrhea : No reports of dysuria or retention Neurovascular: reports of generalized weakness All medications have been reviewed Active Medications Acetaminophen (Acetaminophen Tab 325 Mg Tab) 650 mg PO Q6HR PRN PRN Reason: Fever and/ or Pain Albuterol/Ipratropium (Ipratropium-Albuterol 3 Ml Neb) 3 ml INHALATION RT-Q2H PRN PRN Reason: Shortness Of Breath Or Wheezing Last Admin: 07/22/21 22:23 Dose: 3 ml Documented by: Albuterol/Ipratropium (Ipratropium-Albuterol 3 Ml Neb) 3 ml INHALATION RT-QID [facility] Last Admin: 07/28/21 10:50 Dose: Not Given Documented by: Amiodarone HCl (Amiodarone 200 Mg Tab) 400 mg PO BID [facility] Last Admin: 07/28/21 08:44 Dose: 400 mg Documented by: Aspirin (Aspirin 81 Mg) 81 mg PO DAILY [facility] Last Admin: 07/28/21 08:44 Dose: 81 mg Documented by: Bisacodyl (Bisacodyl 10 Mg Supp) 10 mg RECTAL DAILY PRN PRN Reason: Constipation Last Admin: 07/25/21 13:55 Dose: 10 mg Documented by: Clopidogrel Bisulfate (Clopidogrel 75 Mg Tab) 75 mg PO DAILY [facility] Last Admin: 07/28/21 08:44 Dose: 75 mg Documented by: Darbepoetin Zac (Darbepoetin Zac 40 Mcg/0.4 Ml Syringe) 40 mcg SQ Q7D [facility] Last Admin: 07/26/21 11:59 Dose: 40 mcg Documented by: Heparin Sodium (Porcine) (Heparin Sodium,Porcine/Pf 5,000 Unit/0.5 Ml Syringe) 5,000 unit SQ Q8HR [facility] Last Admin: 07/28/21 08:30 Dose: 5,000 unit Documented by: Sodium Chloride (Saline 0.9%) 1,000 mls @ 20 mls/hr IV .Q24H [facility] Last Admin: 07/27/21 20:17 Dose: Not Given Documented by: Ferric Sodium Gluconate 125 mg (/ Sodium Chloride) 110 mls @ 100 mls/hr IVPB DAILY [facility] Stop: 07/30/21 09:31 Last Admin: 07/28/21 10:59 Dose: 100 mls/hr Documented by: Milrinone Lactate/Dextrose 20 (mg/ IV Solution) 100 mls @ 6.144 mls/hr IV .[id number] [facility] Last Admin: 07/28/21 08:27 Dose: 0.2 mcg/kg/min, 6.144 mls/hr Documented by: Insulin Aspart (Insulin Aspart (Novolog) 100 Unit/Ml Vial) 0 unit SQ [id number] [facility]; Protocol Last Admin: 07/28/21 11:47 Dose: 3 unit Documented by: Magnesium Hydroxide (Magnesium Hydroxide 2,400 Mg/10 Ml Cup) 2,400 mg PO BID PRN PRN Reason: Constipation Midodrine (Midodrine 5 Mg Tab) 10 mg PO AC-TID [facility] Last Admin: 07/28/21 11:53 Dose: 10 mg Documented by: Miscellaneous Information (Magnesium Replacement Protocol 1 Each Misc) 1 each MISCELLANE DAILY PRN; Protocol PRN Reason: Per Protocol Miscellaneous Information (Phosphorus Replacement Protoco 1 Each Misc) 1 each MISCELLANE DAILY PRN; Protocol PRN Reason: Per Protocol Miscellaneous Information (Potassium Replacement Protocol 1 Each Misc) 1 each MISCELLANE DAILY PRN; Protocol PRN Reason: Per Protocol Miscellaneous Information (Potassium Replacement Protocol 1 Each Misc) 1 each MISCELLANE DAILY PRN; Protocol PRN Reason: Per Protocol Ondansetron HCl (Ondansetron 4 Mg/2 Ml Vial) 4 mg IVP Q6HR PRN PRN Reason: Nausea And Vomiting Pantoprazole Sodium (Pantoprazole 40 Mg Tablet) 40 mg PO AC-BRKFST [facility] Last Admin: 07/28/21 08:27 Dose: 40 mg Documented by: Senna/Docusate Sodium (Sennosides-Docusate Sodium 1 Each Tab) 2 each PO HS PRN PRN Reason: Constipation Sodium Chloride (Sodium Chloride 0.9% Flush 10 Ml Syringe) 10 ml IV BID [facility] Last Admin: 07/28/21 11:40 Dose: 10 ml Documented by: Physical exam: GENERAL: The patient is alert and oriented x3, not in any acute distress. Well developed, well nourished. HEENT: Pupils are round and equally reacting to light. EOMI. No scleral icterus. No conjunctival pallor. Normocephalic, atraumatic. No pharyngeal erythema. No thyromegaly. CARDIOVASCULAR: S1 and S2 present. No murmurs, rubs, or gallops. PULMONARY: Chest is clear to auscultation, no wheezing ABDOMEN: Soft, nontender, nondistended, normoactive bowel sounds. No palpable organomegaly. MUSCULOSKELETAL: No joint swelling or deformity. EXTREMITIES: No cyanosis, clubbing, . Bilateral generalized leg edema. NEUROLOGICAL: Gross neurological examination did not reveal any focal deficits. SKIN: No rashes. No petechiae Assessment: severe triple coronary artery disease, status post multiple vessel CABG Severe aortic stenosis status post aortic valve replacement Acute systolic heart failure, , ischemic cardiomyopathy is suspected with ejection fraction of 30-35% NSTEMI Acute kidney injury, suspected secondary to diuresis. And also possibly due to his chronic kidney disease stage III Hypotension requiring pressors postoperatively, patient is off pressors, impr luis felipe Postoperative anemia requiring 1 unit of blood transfusion, hemoglobin has stabilized and is currently 9.8 today Sore throat, improved, coronavirus is negative Hyponatremia Diabetes mellitus, With hyperglycemia upon admission . Hemoglobin A1c is 8.6% Hypertension Hyperlipidemia GI prophylaxis DVT prophylaxis full code Plan: this is a pleasant 75 years old male who presents with possible acute CHF and high troponin. Cardiothoracic surgery as admitting now is patient underwent CABG on 07/22 patient had left chest tube and [place]-Adalberto catheter removed today, indwelling Nava catheter also removed and patient is voiding Continue to monitor blood pressure Continue with aspirin and Plavix Recommend Accu-Cheks before meals at bedtime and monitoring glucose while keeping the patient on insulin sliding scale Cardiology, pulmonary, nephrology following and cardiology recommending patient will need AICD upon discharge Monitor hemoglobin, hemoglobin is stable at 9.5 today Patient continues with loose stool and testing was negative for C. diff and stool softeners discontinued and will add Imodium as needed Will continue to follow along closely with CT surgery during hospitalization Prognosis is guarded Objective - Vital Signs Vital signs: Vital Signs Temp 98.8 F 07/28/21 08:00 Pulse 86 07/28/21 08:00 Resp 20 07/28/21 08:00 BP 123/72 07/28/21 08:00 Pulse Ox 98 07/28/21 06:00 Intake & Output 07/27/21 07/28/21 07/28/21 18:59 06:59 18:59 Intake Total 449.812 740.439 6 Output Total 2060 700 110 Balance -1610.188 40.439 -104 Weight 102.4 kg Intake: IV 374 307 6 CARDIAC OUTPUT 0.9 Sodium 30 110 Chloride PRESSURE BAG 0.9 Sodium 69 72 6 Chloride Sodium Chloride 0.9% 1, 275 125 000 ml @ 20 mls/hr IV . Q24H [facility] Rx#:[id number] Intake, IV Titration 75.812 183.439 Amount Milrinone-D5w Pmx 20 mg 100 In Dextrose/Water 1 100ml .bag @ Per Protocol IV . Q0M [facility] Rx#:[id number] Norepinephrine 4 mg In 75.812 83.439 Sodium Chloride 0.9% 250 ml @ 0.02 MCG/KG/MIN 6. 934 mls/hr IV .Q24H [facility] Rx#:[id number] Oral 250 Output: Chest Tube Drainage 265 130 30 Chest Tube Left Lateral 265 130 30 Chest Urine 1795 570 80 Other: Voiding Method Indwelling Catheter Indwelling Catheter ABP, PAP, CO, CI - Last Documented Arterial Blood Pressure 104/43 Pulmonary Artery Pressure 28/16 Cardiac Output 5.5 Cardiac Index 2.6 - Labs CBC & Chem 7: 07/28/21 04:25 07/28/21 04:25 Labs: Abnormal Lab Results - Last 24 Hours (Table) 07/27/21 07/27/21 07/27/21 Range/Units 11:29 16:14 20:31 RBC (4.30-5.90) m/uL Hgb (13.0-17.5) gm/dL Hct (39.0-53.0) % RDW (11.5-15.5) % Plt Count (150-450) k/uL Sodium (137-145) mmol/L BUN (9-20) mg/dL Glucose (74-99) mg/dL POC Glucose (mg/dL) 123 H 170 H 124 H (75-99) mg/dL Calcium (8.4-10.2) mg/dL AST (17-59) U/L ALT (4-49) U/L Total Protein (6.3-8.2) g/dL Albumin (3.5-5.0) g/dL 07/28/21 07/28/21 07/28/21 Range/Units 01:51 04:25 04:25 RBC 2.92 L (4.30-5.90) m/uL Hgb 9.5 L (13.0-17.5) gm/dL Hct 28.4 L (39.0-53.0) % RDW 15.9 H (11.5-15.5) % Plt Count 88 L (150-450) k/uL Sodium 133 L (137-145) mmol/L BUN 39 H (9-20) mg/dL Glucose 141 H (74-99) mg/dL POC Glucose (mg/dL) 142 H (75-99) mg/dL Calcium 7.7 L (8.4-10.2) mg/dL AST 63 H (17-59) U/L ALT 193 H (4-49) U/L Total Protein 4.5 L (6.3-8.2) g/dL Albumin 2.4 L (3.5-5.0) g/dL 07/28/21 Range/Units 08:10 RBC (4.30-5.90) m/uL Hgb (13.0-17.5) gm/dL Hct (39.0-53.0) % RDW (11.5-15.5) % Plt Count (150-450) k/uL Sodium (137-145) mmol/L BUN (9-20) mg/dL Glucose (74-99) mg/dL POC Glucose (mg/dL) 237 H (75-99) mg/dL Calcium (8.4-10.2) mg/dL AST (17-59) U/L ALT (4-49) U/L Total Protein (6.3-8.2) g/dL Albumin (3.5-5.0) g/dL
[2021-07-28 16:37] LABS: Glucose,Whole Blood 144 mg/dL (75-99)
[2021-07-28] MEDS: LOPERAMIDE 2 MG CAP PO SCH ×2 (16:54→20:29)
[2021-07-28 20:28] LABS: Glucose,Whole Blood 122 mg/dL (75-99)
[2021-07-29] MEDS: HEPARIN SODIUM,PORCINE/PF 5,000 UNIT/0.5 ML SYRINGE SQ SCH ×3 (01:02→16:15)
[2021-07-29] MEDS: MILRINONE-D5W PMX 20 MG in DEXTROSE/WATER 1 100ML.BAG IV SCH (01:08)
[2021-07-29 04:11] LABS: Glucose,Whole Blood 134 mg/dL (75-99)
[2021-07-29] MEDS: INSULIN ASPART (NovoLOG) 100 UNIT/ML VIAL SQ SCH ×5 (04:25→21:26)
[2021-07-29 04:28] LABS: Albumin 2.7 g/dL (3.5-5.0); Calcium 8.1 mg/dL (8.4-10.2); Magnesium 1.9 mg/dL (1.6-2.3); Potassium 3.8 mmol/L (3.5-5.1); Total Bilirubin 1.3 mg/dL (0.2-1.3); Total Protein 5.1 g/dL (6.3-8.2)
[2021-07-29 04:33] LABS: Anisocytosis Slight; Basophils % (A) 0 %; Eosinophils # (A) 0.2 k/uL (0-0.7); Eosinophils % (A) 3 %; HCT 29.5 % (39.0-53.0); HGB 9.7 gm/dL (13.0-17.5); Lymphocytes # (A) 0.7 k/uL (1.0-4.8); Lymphocytes % (A) 14 %; MCHC 32.7 g/dL (31.0-37.0); MCV 97.7 fL (80.0-100.0); Macrocytosis Slight; Mean Platelet Volume 8.6; Monocytes # (A) 0.4 k/uL (0-1.0); Monocytes % (A) 7 %; Neutrophils # (A) 3.8 k/uL (1.3-7.7); Neutrophils % (A) 73 %; Platelet Count 113 k/uL (150-450); RBC 3.02 m/uL (4.30-5.90); RDW 16.6 % (11.5-15.5); WBC 5.1 k/uL (3.8-10.6)
[2021-07-29] MEDS ORDERED: POTASSIUM CHLORIDE ER 20 MEQ TAB.ER PO SCH (06:00)
--- NOTE | 2021-07-29 06:16 | XR ---
EXAMINATION TYPE: XR chest 1V portable DATE OF EXAM: 07/29/2021 CLINICAL HISTORY: Postoperative cardiac surgery progress study. TECHNIQUE: Single AP portable semiupright view of the chest is obtained. COMPARISON: Chest x-ray from one day earlier and older studies FINDINGS: Interval removal of right internal jugular [place]-Adalberto catheter and left basilar chest tube. Overlying sternal wires and mediastinal clips along with the left atrial appendage clip are all red emonstrated. Metallic aortic valve and overlying epicardial pacemaker wires inferiorly are redemonstr ated. Cardiomegaly with left greater than right bibasilar opacities and small bilateral pleural effusions w ithout visualized pneumothorax is redemonstrated. Osseous structures are intact. IMPRESSION: Persistent cardiomegaly with left greater than right bibasilar infiltrates and/or atelect asis and small bilateral pleural effusions are redemonstrated. No significant change from 1 day earli er. Interval removal of left-sided chest tube without pneumothorax noted from one day earlier.
[2021-07-29 06:44] LABS: Glucose,Whole Blood 120 mg/dL (75-99)
[2021-07-29] MEDS ORDERED: POTASSIUM CHLORIDE ER 20 MEQ TAB.ER PO STA ×2 (06:46→07:05)
[2021-07-29] MEDS: MAGNESIUM SULFATE-D5W PMX 1 GM in DEXTROSE/WATER 1 100ML.BAG IVPB SCH ×2 (06:48→08:12)
[2021-07-29] MEDS: MIDODRINE 5 MG TAB PO SCH ×3 (06:48→17:10)
[2021-07-29] MEDS: PANTOPRAZOLE 40 MG TABLET PO SCH (06:48)
[2021-07-29] MEDS ORDERED: CALCIUM GLUCONATE 2 GM in SODIUM CHLORIDE 0.9% 100 ML IVPB ONE (07:00)
[2021-07-29] MEDS: IPRATROPIUM-ALBUTEROL 3 ML NEB INHALATION SCH ×4 (07:40→19:32)
[2021-07-29] MEDS ORDERED: FUROSEMIDE 10 MG/ML 4 ML VIAL IV ONE (07:57)
[2021-07-29] MEDS: ASPIRIN 81 MG PO SCH (08:12)
[2021-07-29] MEDS: CLOPIDOGREL 75 MG TAB PO SCH ×2 (08:13→08:16)
[2021-07-29] MEDS: SODIUM CHLORIDE 0.9% 1,000 ML IV SCH ×2 (08:22→12:49)
[2021-07-29] MEDS: AMIODARONE 200 MG TAB PO SCH ×2 (08:34→21:24)
[2021-07-29] MEDS: METOPROLOL TARTRATE 12.5 MG TAB PO SCH ×2 (08:35→21:25)
[2021-07-29] MEDS: LOPERAMIDE 2 MG CAP PO SCH ×3 (08:35→21:25)
--- NOTE | 2021-07-29 08:48 | P.PN ---
Subjective Patient is seen in follow-up for acute kidney injury on chronic kidney disease. Renal function stable. On oral amiodarone. Remains on Primacor. Sitting up in chair. Nonoliguric. No active complaints. Vital signs are stable. HEENT: On nasal cannula. LUNGS: Breath sounds decreased. HEART: Rate and Rhythm are regular. ABDOMEN: No distention. EXTREMITITES: 1+ edema. Objective - Vital Signs Vital signs: Vital Signs Temp 98.7 F 07/29/21 08:00 Pulse 100 07/29/21 08:01 Resp 18 07/29/21 08:00 BP 110/69 07/29/21 08:00 Pulse Ox 96 07/29/21 08:00 Intake & Output 07/28/21 07/29/21 07/29/21 18:59 06:59 18:59 Intake Total 550 576 292.725 Output Total 1900 625 0 Balance -1350 -49 292.725 Weight 102.7 kg Intake: IV 300 276 249 CARDIAC OUTPUT 0.9 Sodium 20 Chloride Calcium Gluconate 2 gm In 100 Sodium Chloride 0.9% 100 ml @ 100 mls/hr IVPB ONCE ONE Rx#:[id number] Magnesium Sulfate-D5w Pmx 100 1 gm In Dextrose/Water 1 100ml.bag @ 100 mls/hr IVPB Q1H [facility] Rx#: [id number] PRESSURE BAG 0.9 Sodium 45 36 9 Chloride Sodium Chloride 0.9% 1, 235 240 40 000 ml @ 20 mls/hr IV . Q24H [facility] Rx#:[id number] Intake, IV Titration 100 43.725 Amount Milrinone-D5w Pmx 20 mg 100 43.725 In Dextrose/Water 1 100ml .bag @ 0.1 MCG/KG/MIN 3. 072 mls/hr IV .Q24H [facility] Rx#:[id number] Oral 250 200 Output: Chest Tube Drainage 50 Chest Tube Left Lateral 50 Chest Urine 1850 625 0 Other: Voiding Method Indwelling Catheter Urinal # Voids 0 0 ABP, PAP, CO, CI - Last Documented Arterial Blood Pressure 117/56 Pulmonary Artery Pressure 31/16 Cardiac Output 4.6 Cardiac Index 2.2 - Labs CBC & Chem 7: 07/29/21 04:11 07/29/21 04:11 Labs: Abnormal Lab Results - Last 24 Hours (Table) 07/28/21 07/28/21 07/28/21 Range/Units 11:13 16:34 20:27 RBC (4.30-5.90) m/uL Hgb (13.0-17.5) gm/dL Hct (39.0-53.0) % RDW (11.5-15.5) % Plt Count (150-450) k/uL Lymphocytes # (1.0-4.8) k/uL Sodium (137-145) mmol/L BUN (9-20) mg/dL Creatinine (0.66-1.25) mg/dL Glucose (74-99) mg/dL POC Glucose (mg/dL) 224 H 144 H 122 H (75-99) mg/dL Calcium (8.4-10.2) mg/dL ALT (4-49) U/L Total Protein (6.3-8.2) g/dL Albumin (3.5-5.0) g/dL 07/29/21 07/29/21 07/29/21 Range/Units 04:10 04:11 04:11 RBC 3.02 L (4.30-5.90) m/uL Hgb 9.7 L (13.0-17.5) gm/dL Hct 29.5 L (39.0-53.0) % RDW 16.6 H (11.5-15.5) % Plt Count 113 L (150-450) k/uL Lymphocytes # 0.7 L (1.0-4.8) k/uL Sodium 133 L (137-145) mmol/L BUN 33 H (9-20) mg/dL Creatinine 1.30 H (0.66-1.25) mg/dL Glucose 135 H (74-99) mg/dL POC Glucose (mg/dL) 134 H (75-99) mg/dL Calcium 8.1 L (8.4-10.2) mg/dL ALT 130 H (4-49) U/L Total Protein 5.1 L (6.3-8.2) g/dL Albumin 2.7 L (3.5-5.0) g/dL 07/29/21 Range/Units 06:43 RBC (4.30-5.90) m/uL Hgb (13.0-17.5) gm/dL Hct (39.0-53.0) % RDW (11.5-15.5) % Plt Count (150-450) k/uL Lymphocytes # (1.0-4.8) k/uL Sodium (137-145) mmol/L BUN (9-20) mg/dL Creatinine (0.66-1.25) mg/dL Glucose (74-99) mg/dL POC Glucose (mg/dL) 120 H (75-99) mg/dL Calcium (8.4-10.2) mg/dL ALT (4-49) U/L Total Protein (6.3-8.2) g/dL Albumin (3.5-5.0) g/dL Assessment and Plan Plan: Assessment: 1. Acute kidney injury secondary to ATN status post CABG. Renal function stable. Creatinine 1.3 today. 2. Chronic kidney disease stage III a baseline creatinine in the range of 1-1.2 secondary to nephrosclerosis. UA benign. No evidence of hydronephrosis noted on kidney ultrasound. 3. A. fib with RVR maintained on oral amiodarone. 4. Acute blood loss anemia post blood transfusions this admission. On Aranesp. Iron deficiency noted. 5. Coronary artery disease status post CABG on 07/22/2021. 6. Metabolic acidosis secondary to acute kidney injury. Partially compensatory for respiratory alkalosis. Improved. 7. Volume overload. 8. Acute systolic heart failure with ejection fraction of 25-30%. 9. Hypotension due to underlying cardiac status, primacor, and anemia. Off vasopressors. On midodrine. 10. Hypokalemia from diuresis. Plan: Repeat Lasix 40 mg IV once today. Avoid nephrotoxins. Continue to monitor renal function and urine output. Maintain IV iron. Replace potassium. Possible AICD placement today.
--- NOTE | 2021-07-29 09:25 | P.PN ---
Subjective Progress Note Date: 07/29/21 Principal diagnosis: Triple-vessel coronary artery disease, non-STEMI and admission, acute systolic heart failure present on admission, EF 30-35%, first-degree heart block, paroxys mal episodes of second-degree and complete heart block this admission, acute kidney injury, elevated CRP, pro-calcitonin on admission. Previous medical history of hypertension, hyperlipidemia, wme-izqflst-cwogvkdwd diabetes, never smoker, family history of heart disease, remains unvaccinated against covid POD #7 triple-vessel coronary artery bypass grafting using the left internal mammary artery to the left anterior descending coronary artery, reverse greater saphenous vein graft from the aorta to the second obtuse marginal coronary artery, and reverse greater saphenous vein graft from the aorta to the third obtuse marginal coronary artery. Aortic valve replacement using a 23 mm pericardial bioprosthetic Inspiris. Bilateral pulmonary vein isolation using bipolar radiofrequency energy from Atricure, exclusion of the left atrial appendage using a 40 mm Atriclip, intraoperative transesophageal echocardiogram, epi-aortic scanning and graft flow measurements using the Fanitics-Stim system. Endoscopic harvesting of left greater saphenous vein from the ankle to the groin, and right greater saphenous vein from just below the knee to the groin. Postoperative acute blood loss anemia, expected given hemodilution and cardiopulmonary bypass. Hypotension, multifactorial, could be secondary to his ejection fraction of 30- 35%. Paroxysmal atrial fibrillation, a known common occurrence after cardiac surgery and expected due to his known preoperative atrial fibrillation. The patient was seen and examined this morning sitting up in the recliner in the ICU in no acute distress. He denies any pain or shortness of breath, states he feels pretty good. Currently in atrial fibrillation with heart rate in the low 100s. Remains on low-dose IV Primacor. Received IV lasix and concentrated a lbumin yesterday. Left radial arterial line remains present. Patient continues to show improvement daily. He has ambulated in the hallway with PT/OT, tolerated well. Objective - Vital Signs Vital signs: Vital Signs Temp 98.7 F 07/29/21 08:00 Pulse 100 07/29/21 08:01 Resp 18 07/29/21 08:00 BP 110/69 07/29/21 08:00 Pulse Ox 96 07/29/21 08:00 Intake & Output 07/28/21 07/29/21 07/29/21 18:59 06:59 18:59 Intake Total 550 576 292.725 Output Total 1900 625 0 Balance -1350 -49 292.725 Weight 102.7 kg Intake: IV 300 276 249 CARDIAC OUTPUT 0.9 Sodium 20 Chloride Calcium Gluconate 2 gm In 100 Sodium Chloride 0.9% 100 ml @ 100 mls/hr IVPB ONCE ONE Rx#:[id number] Magnesium Sulfate-D5w Pmx 100 1 gm In Dextrose/Water 1 100ml.bag @ 100 mls/hr IVPB Q1H [facility] Rx#: [id number] PRESSURE BAG 0.9 Sodium 45 36 9 Chloride Sodium Chloride 0.9% 1, 235 240 40 000 ml @ 20 mls/hr IV . Q24H [facility] Rx#:[id number] Intake, IV Titration 100 43.725 Amount Milrinone-D5w Pmx 20 mg 100 43.725 In Dextrose/Water 1 100ml .bag @ 0.1 MCG/KG/MIN 3. 072 mls/hr IV .Q24H [facility] Rx#:[id number] Oral 250 200 Output: Chest Tube Drainage 50 Chest Tube Left Lateral 50 Chest Urine 1850 625 0 Other: Voiding Method Indwelling Catheter Urinal # Voids 0 0 ABP, PAP, CO, CI - Last Documented Arterial Blood Pressure 117/56 Pulmonary Artery Pressure 31/16 Cardiac Output 4.6 Cardiac Index 2.2 - Exam CONSTITUTIONAL: Appears comfortable, cooperative, no acute distress RESPIRATORY: Lungs sounds diminished bilaterally. Respirations even, nonlabored. Currently on room air with oxygen saturation 96%. Able to achieve 1000 mL on incentive spirometry. Strong cough. CARDIOVASCULAR: S1, S2 present. Irregular rate and rhythm, atrial fibrillation on telemetry. Sternum stable. Palpable peripheral pulses bilaterally. Generalized edema present. No calf pain or tenderness noted. Heart hugger in place with patient demonstrating appropriate use. Antiembolism stockings, SCDs present. GASTROINTESTINAL: Abdomen soft, nontender, nondistended. Active bowel sounds present 4 quadrants. Tolerating diet. Positive liquid stool-negative for Cdiff GENITOURINARY: Nava discontinued yesterday, patient continues to void 200-300 mL at a time, 2475 mL in the last 24 hours INTEGUMENTARY: Skin is warm and dry with evidence of good perfusion. Anterior chest incision well approximated and covered with dry intact dressing. Bilater al EVH sites well approximated without redness or drainage. NEUROLOGIC: Cranial nerves II through XII intact MUSKULOSKELETAL: Able to move all extremities, strength equal bilaterally, gait normal PSYCHIATRIC: Alert and oriented to person place and time, appropriate affect, intact judgment and insight INVASIVE LINES AND TUBES: A/V epicardial pacemaker wires present, connected to generator, AAI mode with rate 86 bpm. - Allied health notes Allied health notes reviewed: nursing - Labs CBC & Chem 7: 07/29/21 04:11 07/29/21 04:11 Labs: Abnormal Lab Results - Last 24 Hours (Table) 07/28/21 07/28/21 07/28/21 Range/Units 11:13 16:34 20:27 RBC (4.30-5.90) m/uL Hgb (13.0-17.5) gm/dL Hct (39.0-53.0) % RDW (11.5-15.5) % Plt Count (150-450) k/uL Lymphocytes # (1.0-4.8) k/uL Sodium (137-145) mmol/L BUN (9-20) mg/dL Creatinine (0.66-1.25) mg/dL Glucose (74-99) mg/dL POC Glucose (mg/dL) 224 H 144 H 122 H (75-99) mg/dL Calcium (8.4-10.2) mg/dL ALT (4-49) U/L Total Protein (6.3-8.2) g/dL Albumin (3.5-5.0) g/dL 07/29/21 07/29/21 07/29/21 Range/Units 04:10 04:11 04:11 RBC 3.02 L (4.30-5.90) m/uL Hgb 9.7 L (13.0-17.5) gm/dL Hct 29.5 L (39.0-53.0) % RDW 16.6 H (11.5-15.5) % Plt Count 113 L (150-450) k/uL Lymphocytes # 0.7 L (1.0-4.8) k/uL Sodium 133 L (137-145) mmol/L BUN 33 H (9-20) mg/dL Creatinine 1.30 H (0.66-1.25) mg/dL Glucose 135 H (74-99) mg/dL POC Glucose (mg/dL) 134 H (75-99) mg/dL Calcium 8.1 L (8.4-10.2) mg/dL ALT 130 H (4-49) U/L Total Protein 5.1 L (6.3-8.2) g/dL Albumin 2.7 L (3.5-5.0) g/dL 07/29/21 Range/Units 06:43 RBC (4.30-5.90) m/uL Hgb (13.0-17.5) gm/dL Hct (39.0-53.0) % RDW (11.5-15.5) % Plt Count (150-450) k/uL Lymphocytes # (1.0-4.8) k/uL Sodium (137-145) mmol/L BUN (9-20) mg/dL Creatinine (0.66-1.25) mg/dL Glucose (74-99) mg/dL POC Glucose (mg/dL) 120 H (75-99) mg/dL Calcium (8.4-10.2) mg/dL ALT (4-49) U/L Total Protein (6.3-8.2) g/dL Albumin (3.5-5.0) g/dL - Imaging and Cardiology Chest x-ray: report reviewed, image reviewed Assessment and Plan Assessment: 1. Triple-vessel coronary artery disease, non-STEMI and admission, status post three-vessel CABG 2. Acute systolic heart failure present on admission, EF 30-35% 3. First-degree heart block, paroxysmal episodes of second-degree and complete heart block this admission 4. Acute kidney injury 5. Elevated CRP, pro-calcitonin on admission 6. Aortic stenosis, status post bioprosthetic aortic valve replacement 7. History of hypertension 8. History of hyperlipidemia, treated, cholesterol 129, LDL 71 9. Bsg-aiarwvh-sgkhutjie diabetes, hemoglobin A1c 8.6% 10. Never smoker, preoperative FEV1 72% of predicted 11. Family history of heart disease 12. Remains unvaccinated against covid 13. Preoperative as well as postoperative paroxysmal atrial fibrillation, status post bilateral pulmonary vein isolation and left atrial appendage ligation 14. Postoperative acute blood loss anemia, expected 15. Hypotension, multifactorial 16. Transaminitis, trending downward 17. Thrombocytopenia, expected, HIT negative Plan: 1. Continue low-dose aspirin and Plavix. Will start beta jose raul at low dose today 2. Continue to hold statin at this time due to his elevated liver enzymes. Once his liver enzymes are normalized we will restart his statin, liver enzymes are trending down. 3. Encourage incentive spirometry use 10 times every hour while awake. Bronchodilators per pulmonology/critical care medicine. 4. Increase activity, ambulate as tolerated. PT/OT/cardiac rehab following. 5. Will monitor daily labs and chest x-rays. Electrolyte replacement per protocol. Avoid nephrotoxic agents. Will give 40 mg IV push Lasix 1, okay with Dr. Carpenter. Calcium, magnesium, potassium replaced 6. GI/DVT prophylaxis. 7. Insulin management per primary care service. The patient needs tight glucose control to prevent sternal wound infection and promote healing. 8. Decrease Primacor drip to 0.1 mcg/kg/min 9. Pain control with current medication regimen. 10. Strict accurate intake and output. 11. Continue atrial and ventricular epicardial pacemaker wires, keep pacemaker generator at an AAI of 86 BPM. 12. Continue Midodrine 10 mg by mouth 3 times a day. 13. Continue Amiodarone. No anticoagulation until after device placed and epicardial pacemaker wires removed 14. Dr. Morse to place permanent pacemaker +/- ICD on Sunday. Will repeat limited echo to evaluate LV function per his request 15. More recommendations to follow based on patient's clinical course. Time with Patient: Greater than 30
[2021-07-29] MEDS: SODIUM FERRIC GLUCONAT-SUCROSE 125 MG in SODIUM CHLORIDE 0.9% 100 ML IVPB SCH (09:30)
--- NOTE | 2021-07-29 10:33 | PN ---
PROGRESS NOTE FOLLOW-UP NOTE: Hernandez is a 75-year-old gentleman who is admitted to hospital with arp-IO-mercali- elevation AL, had cardiomyopathy and congestive heart failure. He underwent cardiac catheterization and subsequently had bypass surgery, aortic valve replacement, and underwent pulmonary vein isolation for atrial fibrillation with exclusion of the left atrial appendage. Today is postoperative day number 8. He has had slow but steady recovery over the last several days. Currently on aspirin, amiodarone, Plavix, and had been started on Lopressor 12.5 b.i.d. Patient still has his pacer wires in place, but he is in his own rhythm. He is in normal sinus rhythm with first-degree AV block. His EKG prior to bypass surgery also had first-degree AV block. Patient has resumed normal sinus rhythm. He denies any chest pain or difficulty in breathing. On exam, heart rate is 93 beats per minute. Blood pressure is 115/69. Respiratory rate is 18. Chest exam reveals diminished air entry at the bases. Heart exam reveals first and second heart sounds. No gallop. No murmur. Abdomen is soft. Examination of extremities did not reveal any edema. Peripheral pulses are palpable. Labs show that the hemoglobin is 9.7, platelet count is 113. Potassium is 3.3. BUN is 33, creatinine is 1.3. ASSESSMENT: 1. Coronary artery disease, status post coronary artery bypass grafting, ischemic cardiomyopathy, status post bypass surgery. 2. Status post aortic valve replacement. 3. Status post atrial fibrillation ablation with exclusion of the left atrial appendage. 4. History of bradycardia. PLAN: Patient has improved significantly over the last 48 hours. At the moment patient is not using his pacer. He remains in sinus rhythm with first-degree AV block. Will repeat an echocardiogram on him tomorrow to reassess his LV function. If the patient remains in sinus rhythm and is not using his pacer wires, he may not need a permanent pacemaker, and his LV function improves down the road with revascularization may not need AICD. [id number] / AIYANAN: [id number] /
[2021-07-29 11:25] LABS: Glucose,Whole Blood 207 mg/dL (75-99)
--- NOTE | 2021-07-29 11:47 | ECHOF ---
Referral Reason:assess LV MEASUREMENTS -------- HEIGHT: 180.3 cm WEIGHT: 102.5 kg BP: 110/69 IVSd: 1.4 cm (0.6 - 1.1) LVIDd: 5.1 cm (3.9 - 5.3) LVPWd: 1.6 cm (0.6 - 1.1) IVSs: 1.9 cm LVIDs: 3.7 cm LVPWs: 1.7 cm FINDINGS -------- Sinus rhythm. TDS due to CABG and Bandages. The left ventricular size is normal. There is moderate concentric left ventricular hypertrophy. O verall left ventricular systolic function is low-normal with, an EF between 50 - 55 %. Aortic Valve bioprosthesis not well seen. S/P CABG AND AV REPLACEMENT CONCLUSIONS -------- 1. The left ventricular size is normal. 2. There is moderate concentric left ventricular hypertrophy. 3. Overall left ventricular systolic function is low-normal with, an EF between 50 - 55 %. QUALITY ASSURANCE TEST PROGRAM MANAGER: Miracle Roy [facility]
[2021-07-29 12:11] LABS: Glucose,Whole Blood 205 mg/dL (75-99)
--- NOTE | 2021-07-29 13:11 | P.PN ---
Subjective Progress Note Date: 07/29/21 On 07/22/2021, patient is seen in intensive care unit following his surgery, patient had a aortic valve replacement with the #23 is parous pericardial bioprosthetic valve, and a three-vessel coronary artery bypass grafting with BAIN to the LAD, SVG to the OM 2 and OM 3, left atrial appendage ligation. Tomasz lopze just arrived to the intensive care unit, intubated, and sedated, on assist-control mode of ventilation with a rate of 16, tidal volume of 500 FiO2 of sent and PEEP of 10. She is currently on 0.9 normal saline at a rate of 50 ML per hour, he is on norepinephrine at 9 mics per minute, vasopressin at 0.02 units/min, primacore at 0.3 mics per kilo per minute, Diprivan and is at 10 mics per kilo per minute. Hemodynamically patient is currently being paced at AAI mode with a rate of 80. Currently blood pressure is 139/48, PA pressures 31/20, CVP is 14, cardiac output is 4.2, cardiac index is 2.0. Patient has 4 chest tubes and mediastinal, 1 right pleural and one left pleural chest tubes, mediastinal chest tubes are connected to the same Pleur-evac, and there is 200 mL of serosanguineous output, left pleural chest tube has 140 mL of sanguinous output and a chest tube with 140 mL of sanguinous output. No air leak. Catheter is in place, and patient is making adequate urine output. Chest x-ray has been reviewed, tube to low intermittent suction. The patient is seen today 07/23/2021 in follow-up in the intensive care unit. This is postoperative day #1 of a triple vessel coronary artery bypass grafting using the BAIN to the LAD, reverse saphenous vein graft to the second obtuse marginal, third obtuse marginal. Aortic valve replacement using a 23 mm pericardial bioprosthetic Inspiris. He was successfully extubated at 10:15 last evening. Currently on 4 L high flow nasal cannula to maintain O2 saturation in the mid 90s. Chest x-ray showing interval development of mild pulmonary vascular congestion and a probable small bilateral effusions. He is sitting up in a chair at the bedside. He is arousable. He drifts off easily. He is oriented 1 to person. Somewhat slow to respond. Very weak. He did have hypotension postoperatively with some acute blood loss anemia. His ejection fraction is 30-35%. He is currently requiring norepinephrine at 0.14 g per kilogram per minute. He is on vasopressin at 0.03 units per minute. Primacor at 0.03 mcg/kg/m. Right IJ Cordis and Hawkins skin catheter in place. Current cardiac output 4.6. Cardiac index 2.2. PA pressures 39/15 with a CVP of 14. He is on insulin drip at 4 units per hour. 0.9% normal saline at 50 MLS per hour. He is currently in an atrial paced rhythm at 80 bpm. Pacer wires in place. Mediastinal, right and left pleural chest tubes remain in place. Urine output is adequate. White count 6.3. Hemoglobin 7.3. Platelets 108. Sodium 136. Potassium 5.0. Bicarb 20. BUN 22. Creatinine 1.62. Blood glucose 127. AST 568. ALT 343. Arterial blood gases revealed a pO2 of 84, P CO2 of 30 and a pH of 7.43. He is continued on heparin subcu for DVT prophylaxis. Protonix for GI prophylaxis. On 07/24/2021, the patient is sitting up on a chair. He is postop day #2 following coronary artery bypass surgery and aortic valve replacement. The patient was extubated and he is currently on oxygen by nasal cannula at 2 L. They did use BiPAP on and off post extubation. He was briefly placed on BiPAP yesterday and currently is on 2 L of oxygen by nasal cannula. He is using incentive spirometer. He is weak. His still lethargic. He is not confused. He is moving all 4 extremities without any limitation. The chest x-ray from today is showing adequate expansion of both lungs. Chest tubes are still in place. Some atelectatic changes in the lung bases bilaterally. No evidence of any pneumothorax. Hawkins-Adalberto catheter remains in a good location. Meanwhile, the patient remains on a combination of inotropes. He is on milrinone running at 0.3 back to respiratory kilogram per minute and he is also on vasopressin at 0.02 units an hour/minutes and he is also on norepinephrine infusion at 0.04 mcg/kg per minute. His cardiac output is at 4.2 with an index of 2. Pulmonary artery pressures of 43/22. Chest tubes are in place. The patient has 2 mediastinal and 1 left pleural chest tube. Output was noted. The output is in order of less than 100 mL over the past shift and there is no evidence of any air leak. The patient's cardiac rhythm is a atrial fibrillation, slightly tachycardic and the patient is going to be started on amiodarone drip. In terms of his other work, the patient had developed an acute kidney injury. Creatinine was up to 1.6. Today's creatinine is still at 1.6 with a BUN of 26. Sodium is at 140, potassium is at 4.6. White cell count is at 7.3 with a hemoglobin of 9.1 and platelet count of 85. Liver function tests are on the rise. ALT is up to 1133 and AST is up to 497. Insulin drip is still running at the rate of 5 units an hour. On 07/25/2021 patient seen in follow-up in the intensive care unit. Today is postoperative day #3, status post aortic valve replacement surgery, and three- vessel coronary artery bypass grafting with a BAIN to the LAD, SVG to the OM 2 and OM 3 and the left atrial appendage ligation. Patient is awake and alert, he is currently up in the recliner, he is mildly short of breath, does not appear to be in acute distress, he did wear BiPAP support during the day yesterday, and last night with pressures of 12 and 5 and FiO2 of 40%. He is currently on 2 L of oxygen. He remains on multiple drips including epinephrine at 0.02 mics per kilo per minute, milrinone remains a 0.4 mics per kilo per minute, amiodarone is a 0.5 mg/m, norepinephrine at 0.05 mics per kilo per minute, 0.9 normal saline at 50 ML per hour, vasopressin at 0.03 units per kilo per hour, and he is currently receiving a blood transfusion which is infusing at 200 mL on hour. His A. fib is currently slightly better controlled although he still mildly tachycardic at rate of 116 BPM, his blood pressure is 121/55, his PA pressure is 41/23, his CVP is 18, his cardiac output is 5.5 and cardiac index is 2.6. His been afebrile, today's chest x-ray has been reviewed showing persistent cardiomegaly with left greater than right bibasilar infiltrates and/or atelectasis and small left pleural effusion without significant change from one day earlier. He is awake and alert, oriented 3, he is answering to questions appropriately, he is still having some surgical incisional discomfort, his pain rating is 6 out of 10. On oral medications for pain control, incentive spirometry effort is 750 mL. Urine output is in the order of 10-30 ML per hour. Today's labs have been reviewed why blood cell count is 10.0, hemoglobin is 10.2, sodium is 134, potassium is 5.1, chloride is 108, CO2 is 13, anion gap was 13, BUN is 41, creatinine is 1.72, lactic acid today was 3.2, calcium was 8.2, total bilirubin was 2.1, AST was 571, ALT was 497, LFTs are improved. On 07/26/2021 patient is seen in follow-up in intensive care unit, he is awake and alert, in no acute distress, he is currently sitting up in the recliner, breathing comfortably, he is on 2 L of oxygen, he did wear BiPAP support overnight with pressures of 12 and 5 and FiO2 of 35%, and his pulse ox has been in the high 90s between 97-98%, patient has been afebrile, denies worsening dyspnea, his incentive spirometry effort is 750 ML. His right-sided chest tube has been removed, and mediastinal chest tubes have been removed, he only has one left pleural chest tube left in place. There has been 200 mL out of the left pleural chest tube in the last 24 hours. Today's chest x-ray shows cardiomegaly, and stable left lower lobe infiltrate, stable in appearance. Patient remains on vasopressors and inotropes, however vasopressin has been discontinued, and epinephrine drip has been discontinued, patient is currently on norepinephrine at 0.04 mics per kilo per minute which is less than he was on yesterday, and Primacor has also been decreased down to 0.3 mics per kilo per minute, his 0.9 normal saline at a rate of 25 ML per hour, he was given amiodarone bolus this morning, his drip has been discontinued, and patient has been switched to oral amiodarone. He was started on Arixtra for anti- coagulation. He remains in atrial fibrillation with the better controlled rate at 98 BPM. His cardiac output this morning is 4.1, and cardiac index is 1.9. His CVP is 7, his blood pressure is 95/44, his PA pressures 27/15. Patient received a dose of IV Lasix yesterday per nephrology and a history of urine output in the last 24 hours was 1360, however overall he is in positive net fluid balance of 2.2 L over the last 24 hours. Mild swelling in his upper and lower extremities. His creatinine is fairly stable, slightly improved, nephrology is following. On 07/28/2021 patient seen in follow-up in the intensive care unit, he is awake and alert, oriented 3, he sitting up in the recliner, breathing very comfortably, he is currently on room air, with pulse ox of 96-97%, he modynamically stable, he is on small amount of Primacor which is being weaned off, and is currently infusing at 0.2 mics per kilo per minute, norepinephrine drip has been discontinued, vasopressin and epinephrine drips have both been discontinued the day before yesterday, patient has converted to sinus mechanism and has remained in sinus mechanism, currently still pacing at a rate of 80 BPM, hemodynamically he has been stable, his latest cardiac output is 4.6, cardiac index is 2.2, his Hawkins-Adalberto catheter will be discontinued today. Full catheter is in place, he is making urine in the order of 40-80 ML per hour. Room air pulse ox is 96-97%, hemodynamically stable, afebrile, his incentive spirometer effort is better today, he is up to a liter on it today compared to 750 on yesterday's exam. His left-sided chest tube remains in place, today's chest x- ray showing persistent cardiomegaly with left greater than right basilar infiltrates and/or atelectasis and small bilateral pleural effusions without significant change compared to yesterday. Today's labs have been reviewed, white blood cell count is 6.2, hemoglobin is 9.5, sodium is 133, potassium is 3.7, chloride is 104, CO2 is 24, BUN of 39, creatinine is 1.2 AST 63, ALT is 193, alkaline phosphatase 72. No nausea vomiting, tolerating oral intake, patient had bowel movements, overall he states he is feeling better, appears to be much more awake and alert, and responsive. He received another dose of IV Lasix today per CT surgery. His been getting intermittent doses of diuretics, over the last 24 hours she is in -1.5 L net fluid balance. Generalized edema is improved. On 07/29/2021 patient seen in follow-up in intensive care unit, patient is awake and alert, in no acute distress. Today is postoperative day #7, status post aortic valve replacement surgery, and three-vessel coronary artery bypass grafting. Patient is breathing comfortably, he is currently on room air and his pulse ox is 96%, hemodynamically patient is stable, he remains on very small dose of Primacor which is currently at 0.1 mics per kilo per minute, no other drips, 0.9 normal saline at rate of 20 ML per hour, he is in sinus mechanism and has remained in sinus mechanism since yesterday with a rate of 67, he is not being paced anymore, and his pacemaker is at VVI backup of 50 BPM. Blood pressure stable 117/84. Did not require BiPAP support overnight, his chest x- ray today showing persistent cardiomegaly with left greater than right bibasilar infiltrates and/or atelectasis and small bilateral pleural effusions. Patient was given a dose of IV Lasix per CT surgery of 40 mg 1 IV push. He is sitting up in the recliner, denies any acute distress, he is working on incentive spirometer, Nava catheter has been discontinued, he is been avoiding. Chest tubes have been discontinued. Today's labs have been reviewed, his white blood cell count is 5.1, hemoglobin is 9.7, sodium is 133, potassium 3.8, chloride is 105, CO2 is 25, BUN is 33, creatinine is 1.3. His LFTs are recovering, his AST is 49, ALT is 1:30, and alk phos is 69. Patient has been receiving intermittent doses of diuretics, he is in -1.3 L net fluid balance over the last 24 hours. His surgical incisions are clean dry and intact. Objective - Vital Signs Vital signs: Vital Signs Temp 98.7 F 07/29/21 08:00 Pulse 66 07/29/21 11:00 Resp 8 L 07/29/21 11:00 BP 105/65 07/29/21 11:00 Pulse Ox 96 07/29/21 11:00 Intake & Output 07/28/21 07/29/21 07/29/21 18:59 06:59 18:59 Intake Total 550 576 315.725 Output Total 1900 625 650 Balance -1350 -49 -334.275 Weight 102.7 kg Intake: IV 300 276 272 CARDIAC OUTPUT 0.9 Sodium 20 Chloride Calcium Gluconate 2 gm In 100 Sodium Chloride 0.9% 100 ml @ 100 mls/hr IVPB ONCE ONE Rx#:[id number] Magnesium Sulfate-D5w Pmx 100 1 gm In Dextrose/Water 1 100ml.bag @ 100 mls/hr IVPB Q1H [facility] Rx#: [id number] PRESSURE BAG 0.9 Sodium 45 36 12 Chloride Sodium Chloride 0.9% 1, 235 240 60 000 ml @ 20 mls/hr IV . Q24H [facility] Rx#:[id number] Intake, IV Titration 100 43.725 Amount Milrinone-D5w Pmx 20 mg 100 43.725 In Dextrose/Water 1 100ml .bag @ 0.1 MCG/KG/MIN 3. 072 mls/hr IV .Q24H [facility] Rx#:[id number] Oral 250 200 Output: Chest Tube Drainage 50 Chest Tube Left Lateral 50 Chest Urine 1850 625 650 Other: Voiding Method Indwelling Catheter Urinal Urinal # Voids 0 0 # Bowel Movements 1 ABP, PAP, CO, CI - Last Documented Arterial Blood Pressure 128/58 Pulmonary Artery Pressure 31/16 Cardiac Output 4.6 Cardiac Index 2.2 - Exam GENERAL EXAM: Awake and alert, mild short of breath, 75-year-old white gentleman, on room air with a pulse ox of 96% sitting in the recliner. patient did not require BiPAP support last night, his dyspnea seems to have improved, patient is breathing more comfortably on today's exam HEAD: Normocephalic/atraumatic. EYES: Normal reaction of pupils, equal size. Conjunctiva pink, sclera white. NOSE: Clear with pink turbinates. THROAT: No erythema or exudates. NECK: No masses, no JVD, no thyroid enlargement, no adenopathy. CHEST: No chest wall deformity. Symmetrical expansion. 2 chest tubes, 2 MS chest tubes have been discontinued, right pleural chest tube has been discontinued and left pleural chest tubes was also discontinued on 07/28/2021 LUNGS: Equal air entry with no crackles, wheeze, rhonchi or dullness. CVS: Regular rate and rhythm, normal S1 and S2, no gallops, no murmurs, no rubs ABDOMEN: Soft, nontender. No hepatosplenomegaly, normal bowel sounds, no guarding or rigidity. EXTREMITIES: No clubbing, mild edema in upper and lower extremities, no cyanosis, 2+ pulses and upper and lower extremities. MUSCULOSKELETAL: Muscle strength and tone normal. SPINE: No scoliosis or deformity SKIN: No rashes CENTRAL NERVOUS SYSTEM: awake and oriented 3 No focal deficits, tone is normal in all 4 extremities. - Labs CBC & Chem 7: 07/29/21 04:11 07/29/21 04:11 Labs: Abnormal Lab Results - Last 24 Hours (Table) 07/28/21 07/28/21 07/29/21 Range/Units 16:34 20:27 04:10 RBC (4.30-5.90) m/uL Hgb (13.0-17.5) gm/dL Hct (39.0-53.0) % RDW (11.5-15.5) % Plt Count (150-450) k/uL Lymphocytes # (1.0-4.8) k/uL Sodium (137-145) mmol/L BUN (9-20) mg/dL Creatinine (0.66-1.25) mg/dL Glucose (74-99) mg/dL POC Glucose (mg/dL) 144 H 122 H 134 H (75-99) mg/dL Calcium (8.4-10.2) mg/dL ALT (4-49) U/L Total Protein (6.3-8.2) g/dL Albumin (3.5-5.0) g/dL 07/29/21 07/29/21 07/29/21 Range/Units 04:11 04:11 06:43 RBC 3.02 L (4.30-5.90) m/uL Hgb 9.7 L (13.0-17.5) gm/dL Hct 29.5 L (39.0-53.0) % RDW 16.6 H (11.5-15.5) % Plt Count 113 L (150-450) k/uL Lymphocytes # 0.7 L (1.0-4.8) k/uL Sodium 133 L (137-145) mmol/L BUN 33 H (9-20) mg/dL Creatinine 1.30 H (0.66-1.25) mg/dL Glucose 135 H (74-99) mg/dL POC Glucose (mg/dL) 120 H (75-99) mg/dL Calcium 8.1 L (8.4-10.2) mg/dL ALT 130 H (4-49) U/L Total Protein 5.1 L (6.3-8.2) g/dL Albumin 2.7 L (3.5-5.0) g/dL 07/29/21 07/29/21 Range/Units 11:24 12:09 RBC (4.30-5.90) m/uL Hgb (13.0-17.5) gm/dL Hct (39.0-53.0) % RDW (11.5-15.5) % Plt Count (150-450) k/uL Lymphocytes # (1.0-4.8) k/uL Sodium (137-145) mmol/L BUN (9-20) mg/dL Creatinine (0.66-1.25) mg/dL Glucose (74-99) mg/dL POC Glucose (mg/dL) 207 H 205 H (75-99) mg/dL Calcium (8.4-10.2) mg/dL ALT (4-49) U/L Total Protein (6.3-8.2) g/dL Albumin (3.5-5.0) g/dL Assessment and Plan Plan: Assessment: #1. Acute non-ST segment elevated myocardial infarction and multivessel coronary artery disease and severe aortic valve stenosis, status post three- vessel coronary artery bypass grafting with BAIN to the LAD, SVG to the OM 2 and OM 3, and aortic valve replacement on 07/22/2021, patient remains in the intensive care unit, today it is postoperative day #3 on 07/25/2021, continues on multiple drips and inotropes for hemodynamic support. Cardiac output and index are improved on multiple drips and inotropes. Patient has developed an acute kidney injury and shock liver, requiring lnorepinephrine, epinephrine, milrinone and vasopressin. Currently improved, patient is off all vasopressors, currently remains on small dose of milrinone #2. Routine postoperative ventilator management, patient was successfully weaned and extubated on postoperative day #0, currently requiring on and off BiPAP support and nasal cannula with 2 L of oxygen and chest x-ray showing cardiomegaly with left greater than right bibasilar infiltrates and atelectasis small left pleural effusion. 07/29/2021 patient is improving, currently on room air, not requiring BiPAP support, breathing more comfortably, chest x-ray continues to show bibasilar atelectasis, and small pleural effusions, has been receiving intermittent doses of diuretics #3. Acute systolic congestive heart failure with an ejection fraction of 30- 35%. His preop CT chest showed bilateral pleural effusions with cardiomegaly #4. Hypotension, multifactorial, related to postoperative bleeding, and poor ejection fraction, improved. Patient is off vasopressors in the form of norepinephrine at 0.04 mcg/kg/min mics per minute, vasopressin and epinephrin have been weaned off. Remains on small dose of Primacor #5. Acute hypoxic respiratory failure secondary to pulmonary edema. His preop FEV1 was 72% of predicted. Patient was successfully weaned and extubated on postoperative day #0, however he is requiring on and off BiPAP support with FiO2 of 40% #6. Hypertension #7. Hyperlipidemia #8. Diabetes mellitus type 2 #9. Acute kidney injury likely cardiorenal and related to ATN, currently improved #10. Shock liver, improving #11. Acute blood loss anemia, expected outcome of surgery, patient has received 3 units of packed red blood cells current hemoglobin is 9.5 #12. New onset A. fib with rapid ventricular response currently on oral amio, rate is better controlled, and patient has converted to sinus rhythm on 07/28/2021 Plan: Clinically patient is stable, and improving hemodynamically significantly improved, he is on small dose of Primacor, he is off all vasopressors Today's chest x-ray has been reviewed showing small bilateral pleural effusions Patient received an additional dose of Lasix per CT surgery Remains in sinus rhythm, Rate control medications and anticoagulation per CT surgery Otherwise no acute events overnight Chest tubes have been discontinued Hawkins-Adalberto has been discontinued Nava catheter is out Increase activity as tolerated Encourage deep breathing and coughing and incentive spirometry use Follow-up chest x-ray and labs in the morning Continue to follow along with CT surgery I performed a history & physical examination of the patient and discussed their management with my nurse practitioner, Marilu Jiménez. I reviewed the nurse practitioner's note and agree with the documented findings and plan of care. Lung sounds are positive for diffuse wheezes throughout the lung martins. The findings and the impression was discussed with the patient. I attest to the documentation by the nurse practitioner. Time with Patient: Less than 30
[2021-07-29 16:45] LABS: Glucose,Whole Blood 189 mg/dL (75-99)
[2021-07-29 21:21] LABS: Glucose,Whole Blood 259 mg/dL (75-99)
--- NOTE | 2021-07-29 23:41 | P.PN ---
Subjective Progress Note Date: 07/29/21 This is a pleasant 75 years old male with past medical history of Diabetes Mellitus, Hyperlipidemia, Hypertension Patient presents because of the progressive exertional dyspnea and decreased leg swelling over one month, bilateral leg swelling and bilateral neck pain. However yesterday he started getting orthopnea, he could not lay down and his asked him to come to emergency room. Also patient is complaining of from dry cough and sore throat, mouth is making some clear phlegm. He denies chest pain or abdominal pain. No dizziness. He was complaining of from little diarrhea, he felt almost going to vomit this morning but did not. No urinary complaints. No weakness or numbness He denies smoking, alcohol or illicit drugs Vitals are stable and he is saturating 96% on room air. Labs were reviewed including unremarkable CBC except for mild lymphopenia at 0.7, INR is 1.0. Sodium is 124, carbon dioxide 17, creatinine 1.1, glucose 220 Liver enzymes not elevated. Troponin is high as 0.418, C-reactive protein 2.0. ProBNP is 4880 Coronavirus not detected. EKG showing normal sinus rhythm at 85 with first-degree AV block and incomplete right bundle branch block, no significant ST-T changes. Chest x-ray: Interstitial pulmonary edema with increased cardiomegaly In the emergency room patient was started on IV Lasix 40 mg every 8 hours and cardiology team were consulted. 07/17/2021 Patient breathing is better, he does not complain from jaw pain or neck pain anymore, he is breathing easier, less leg edema. Patient is continued on IV Lasix 40 mg twice daily, also he is on heparin drip His sodium is improved today to 1.7 however his creatinine went up to 1.4. Because of his worsening kidney function we hold his metformin and switch him to Amaryl 2 mg daily, patient informed of his uncontrolled diabetes as his hemoglobin A1c is a 42.6%. Echocardiogram showed ejection fraction of 30-35% with moderate mitral regurgitation, 2018 8 was 55-60% Patient possibly will go for cardiac cath tomorrow 07/18/2021 Patient feels better, his breathing is easier. He has no more jaw pain, leg swelling is significantly improved he has crepitationandonlyminimal. He has some wheezing during examination most likely secondary to his CHF, patient is nonsmoker with no history of COPD. He is hemodynamically stable, he is on room air. Creatinine is trending up 1.1, 1.4, and 1.58 today. However sodium significantly improved up to 133. His Lasix was switched to 40 mg by mouth daily. His glucose is controlled 136 and 142 after he was started on Amaryl today we will keep monitoring, metformin was held for his acute kidney injury. He has slight ejection fraction of 30-35% with moderate MR and he needs cardiac cath however it is on hold now to further evaluation for his kidney injury, most likely secondary to diuresis, nephrology team was consulted, renal ultrasound is pending. 81 mg 07/19/2021 Patient breathing is improved close to normal however he has some residual basal crepitation which is mild. Very minimal leg swelling. No much exertional dyspnea. And his diuretics are switched to oral dose again Lasix 40 mg daily His creatinine improved 1.3 from 1.8 yesterday. Glucose less than 150. After switching his metformin and to Amaryl 2 mg daily. Hemoglobin A1c is 8.6% Plan for him to go for cardiac cath today. Renal ultrasound showing no hydronephrosis. Tenderness on home dose of aspirin 81 mg, oral Lasix and metoprolol 07/20/2021 Today with minimal dyspnea however he still have bilateral basal crepitation and leg edema, he is saturating 95-96% on 2 L oxygen via nasal cannula. His creatinine slightly up to 1.5. Glucose controlled. Renal ultrasound showing no hydronephrosis. Cardiac cath yesterday showing severe triple coronary artery disease, referred to thoracic surgery been consulted for possible CABG 07/21/2021 Patient currently sitting in bed looks comfortable, no chest pain, no significant dyspnea. Using his incentive spirometry frequently. He is cu rrently kept on heparin drip. Minimal leg swelling, mild basal crepitation. He is hemodynamically stable. He is saturating 97% on 2 L oxygen via nasal cannula. His sodium 132, creatinine improved to 1.28, glucose controlled while he is on Amaryl 2 mg. His metformin, metoprolol and lisinopril are on hold for hypertension acute kidney injury. Patient currently has been worked up for possible cardiac bypass surgery with cardiovascular surgery team on the case. 07/22/2021 Patient is going for cardiac bypass surgery today. This with no chest pain or dyspnea. Hemodynamically stable. Glucose controlled however it might be needed to be started on insulin drip. Most likely patient will go to the intensive care unit post procedure. We will follow up with him 07/23/2021 Patient status post multiple vessel coronary artery bypass grafting for severe triple coronary artery disease and aortic valve replacement for severe aortic stenosis and today is postop day #1. Patient was sitting in chair, awake but very drowsy however he is able to follow commands with minimal movement. Because of his generalized weakness. Patient has hypotension that required pressors in the form of vasodepressor at 0.03 and levophed at 0.14. Also he has some low-grade temperature at 100.9. He is tachypneic at 29, oxygen saturation and requirements is at 4 L/m. He developed postoperative hyperkalemia at 6.3, corrected with 10 units of insulin and D50 ample down to 5.1. He has drop of hemoglobin down to 7.3 and he is getting 1 unit of blood transfusion. Platelet count 108. Sodium is 132, creatinine 1.6 which is close to baseline as he has chronic kidney disease. Never enzymes significantly elevated with AST 568 and ALT 343. Chest x-ray showing no mild pulmonary vascular congestion and receives one-time dose of IV Lasix 20 mg Also he is on insulin drip while metformin and Amaryl are on hold. Blood pressure medication of metoprolol and lisinopril were held prior to surgery because of hypotension and acute kidney injury. Patient currently kept on home dose of aspirin 81 mg and added Mavik 75 mg 07/24/2021 Patient sitting in chair, his mentation improving today and he follows commands with no difficulty moving her arms or legs but he looks very tired and lethargic. Blood pressure is 93/74. Heart rate is around 70. He had no fever today and his respiratory rate is 24-28 and his oxygen saturation is acceptable and 2 L/m of oxygen. His sodium is 140, creatinine stable at 1.6 but liver enzymes trending up to 1133 and AST and ALT is still up about 497. Glucose controlled on insulin drip. He received one unit of blood transfusion in hemoglobin went up 7.38 to 9.1. Platelets 85K. Lipase is normal at 7.3. Chest x-ray showing postsurgical changes and chest tubes are unchanged in pos ition while there is decrease in vascular congestion. His pO2 was one and he is currently on BiPAP with FiO2 of 40%. He remains on amiodarone drip which is added for new onset A. fib. Also his continued on aspirin 81 mg which is home dose and added Plavix in the hospital. 07/25/2021 Patient remains monitored closely in the ICU under critical condition, he is very lethargic but awake and follow commands. His blood pressure is 108/59 and 80/40. That needs pressors. Heart rate is 94. Labs reviewed showing AST is 571 which is improving and ALT fourth 97. Glucose is controlled but around 200. Bilirubin is elevated at 2.1. Her hemoglobin is stable at 10.2. Platelet to 62K and white BC is 10 K. Chest x-ray showing no change with cardiomegaly and bibasilar infiltrates. Ejection fraction is still low at 25-30%. Patient remains on many risks are slightly renal. He is on aspirin and Plavix. And antihypertensive medications are on hold.. 07/26/2021 Patient looks less distressed today sitting in chair most of the time, minimal chest pain. Chest tubes in a Place. His blood pressure is 160/50, heart rate 94, sodium 134, creatinine 1.6. ast 264 and alt 385. bilirubin improved 2.1 down to 1.5. glucose is controlled. hemoglobin 9.6, platelet count 76. chest x-ray showing cardiomegaly with a stable chest tube on the left side and left lower lobe infiltrate stable as well. patient today is a started on fondaparinux, also he is on aspirin and plavix, he needed amiodarone. 07/27/2021 Patient is seen and evaluated and follow-up continues to be closely monitored in the ICU. We are following closely with cardiothoracic surgery and multiple medical consultations including nephrology, pulmonary, cardiology are following closely. Patient continues with chest tubes and is currently sitting up in the chair and working with physical therapy. Chest x-ray today shows postoperative findings with probable basilar atelectasis and possible associated effusion. Per nursing staff and patient patient has had multiple episodes of loose stool and will order C. diff. If negative will consider Imodium and monitor for improvement. Blood sugars being closely monitored patient continues on sliding scale. 07/28/2021 Patient is seen in follow-up today continues to be in the ICU being closely monitored with multiple medical consultations following. Patient had chest tubes and catheter from the neck removed today and is currently sitting up in the chair on room air. Patient is weak and will require physical therapy. C. diff testing was negative and patient continues with some loose stool and will add Imodium. Chest x-ray today shows persistent cardiomegaly with left greater than right bibasilar infiltrates and/or atelectasis and small bilateral pleural effusion are redemonstrated with no significant change. Patient does have incentive spirometer at the bedside and encourage the patient to continue using at least 10 times every hour while awake. 07/29/2021 Patient is seen today and continues to be in the ICU being closely monitored and we are following with cardiothoracic surgery as patient is recently status post CABG. Discussion is possible AICD placement in the next 2-3 days prior to discharge if needed although not currently requiring pacer support. 2d echo ordered and pending. Patient continues with some lower extremity edema and has received a dose of Lasix today. Patient with compression stockings and per patient legs are extremely tender to the touch and taut. Encourage the patient to elevate lower extremities as well at rest. Chest xray today shows Persistent cardiomegaly with left greater than right bibasilar infiltrates and or atelectasis and small bilateral pleural effusions are again remonstrated with no significant change from previous day and no pneumothorax noted from chest tube removal one day ago. Labs: WBC is 5.1, hemoglobin is 9.7, platelets are 113, sodium is 133, potassium 3.8, BUN 33, creatinine 1.30, calcium 8.1, magnesium 1.9 Review of systems: Constitutional: No reports of fatigue, fever, or chills Cardiovascular: No reports of chest pain or palpitations Respiratory: No reports of shortness of breath or cough GI: No reports of nausea, vomiting, improvement in diarrhea : No reports of dysuria or retention Neurovascular: reports of generalized weakness, reports bilateral lower extremity edema that is painful and taut. All medications have been reviewed Active Medications Acetaminophen (Acetaminophen Tab 325 Mg Tab) 650 mg PO Q6HR PRN PRN Reason: Fever and/ or Pain Albuterol/Ipratropium (Ipratropium-Albuterol 3 Ml Neb) 3 ml INHALATION RT-Q2H PRN PRN Reason: Shortness Of Breath Or Wheezing Last Admin: 07/22/21 22:23 Dose: 3 ml Documented by: Albuterol/Ipratropium (Ipratropium-Albuterol 3 Ml Neb) 3 ml INHALATION RT-QID [facility] Last Admin: 07/29/21 12:15 Dose: Not Given Documented by: Amiodarone HCl (Amiodarone 200 Mg Tab) 400 mg PO BID [facility] Last Admin: 07/29/21 08:34 Dose: 400 mg Documented by: Aspirin (Aspirin 81 Mg) 81 mg PO DAILY [facility] Last Admin: 07/29/21 08:12 Dose: 81 mg Documented by: Bisacodyl (Bisacodyl 10 Mg Supp) 10 mg RECTAL DAILY PRN PRN Reason: Constipation Last Admin: 07/25/21 13:55 Dose: 10 mg Documented by: Clopidogrel Bisulfate (Clopidogrel 75 Mg Tab) 75 mg PO DAILY [facility] Last Admin: 07/29/21 08:16 Dose: 75 mg Documented by: Darbepoetin Zac (Darbepoetin Zac 40 Mcg/0.4 Ml Syringe) 40 mcg SQ Q7D [facility] Last Admin: 07/26/21 11:59 Dose: 40 mcg Documented by: Heparin Sodium (Porcine) (Heparin Sodium,Porcine/Pf 5,000 Unit/0.5 Ml Syringe) 5,000 unit SQ Q8HR [facility] Last Admin: 07/29/21 08:14 Dose: 5,000 unit Documented by: Sodium Chloride (Saline 0.9%) 1,000 mls @ 20 mls/hr IV .Q24H [facility] Last Admin: 07/29/21 12:49 Dose: 20 mls/hr Documented by: Ferric Sodium Gluconate 125 mg (/ Sodium Chloride) 110 mls @ 100 mls/hr IVPB DAILY [facility] Stop: 07/30/21 09:31 Last Admin: 07/29/21 09:30 Dose: 100 mls/hr Documented by: Milrinone Lactate/Dextrose 20 (mg/ IV Solution) 100 mls @ 3.072 mls/hr IV .Q24H [facility] Last Infusion: 07/29/21 08:15 Dose: 0.1 mcg/kg/min, 3.072 mls/hr Documented by: Insulin Aspart (Insulin Aspart (Novolog) 100 Unit/Ml Vial) 0 unit SQ [id number] [facility]; Protocol Last Admin: 07/29/21 12:36 Dose: 2 unit Documented by: Loperamide HCl (Loperamide 2 Mg Cap) 2 mg PO TID [facility] Last Admin: 07/29/21 08:35 Dose: Not Given Documented by: Magnesium Hydroxide (Magnesium Hydroxide 2,400 Mg/10 Ml Cup) 2,400 mg PO BID PRN PRN Reason: Constipation Metoprolol Tartrate (Metoprolol Tartrate 12.5 Mg Tab) 12.5 mg PO BID [facility] Last Admin: 07/29/21 08:35 Dose: 12.5 mg Documented by: Midodrine (Midodrine 5 Mg Tab) 10 mg PO AC-TID [facility] Last Admin: 07/29/21 12:37 Dose: 10 mg Documented by: Miscellaneous Information (Magnesium Replacement Protocol 1 Each [facility] [place]) 1 each MISCELLANE DAILY PRN; Protocol PRN Reason: Per Protocol Miscellaneous Information (Phosphorus Replacement Protoco 1 Each [facility] [place]) 1 each MISCELLANE DAILY PRN; Protocol PRN Reason: Per Protocol Miscellaneous Information (Potassium Replacement Protocol 1 Each [facility] [place]) 1 each MISCELLANE DAILY PRN; Protocol PRN Reason: Per Protocol Miscellaneous Information (Potassium Replacement Protocol 1 Each [facility] [place]) 1 each MISCELLANE DAILY PRN; Protocol PRN Reason: Per Protocol Ondansetron HCl (Ondansetron 4 Mg/2 Ml Vial) 4 mg IVP Q6HR PRN PRN Reason: Nausea And Vomiting Pantoprazole Sodium (Pantoprazole 40 Mg Tablet) 40 mg PO AC-BRKFST [facility] Last Admin: 07/29/21 06:48 Dose: 40 mg Documented by: Senna/Docusate Sodium (Sennosides-Docusate Sodium 1 Each Tab) 2 each PO HS PRN PRN Reason: Constipation Sodium Chloride (Sodium Chloride 0.9% Flush 10 Ml Syringe) 10 ml IV BID [facility] Last Admin: 07/29/21 12:48 Dose: 10 ml Documented by: Physical exam: GENERAL: The patient is alert and oriented x3, not in any acute distress. Well developed, well nourished. HEENT: Pupils are round and equally reacting to light. EOMI. No scleral icterus. No conjunctival pallor. Normocephalic, atraumatic. No pharyngeal erythema. No th yromegaly. CARDIOVASCULAR: S1 and S2 present. No murmurs, rubs, or gallops. PULMONARY: Chest is clear to auscultation, no wheezing ABDOMEN: Soft, nontender, nondistended, normoactive bowel sounds. No palpable organomegaly. MUSCULOSKELETAL: No joint swelling or deformity. EXTREMITIES: No cyanosis, clubbing, . Bilateral generalized leg edema. NEUROLOGICAL: Gross neurological examination did not reveal any focal deficits. SKIN: No rashes. No petechiae Assessment: severe triple coronary artery disease, status post multiple vessel CABG Severe aortic stenosis status post aortic valve replacement Acute systolic heart failure, , ischemic cardiomyopathy is suspected with ejection fraction of 30-35% NSTEMI Acute kidney injury, suspected secondary to diuresis. And also possibly due to his chronic kidney disease stage III Hypotension requiring pressors postoperatively, patient is off pressors, improved Postoperative anemia requiring 1 unit of blood transfusion, hemoglobin has stabilized Sore throat, improved, coronavirus is negative Hyponatremia Diabetes mellitus, With hyperglycemia upon admission . Hemoglobin A1c is 8.6% Hypertension Hyperlipidemia GI prophylaxis DVT prophylaxis full code Plan: This is a pleasant 75 years old male who presented with possible acute CHF and h igh troponin. N-stemi and underwent CABG on 07/22. Continue to monitor blood pressure, off pressor support and has pacer wires although not requiring pacer at this time. 2d echo ordered and EF is improved at 50-55% and may not require AICD placement and cardio following closely. Continue with aspirin and Plavix Recommend Accu-Cheks before meals at bedtime and monitoring glucose while keeping the patient on insulin sliding scale Cardiology, pulmonary, nephrology following and cardiology Monitor hemoglobin, hemoglobin is stable at 9.6 Patient continues with loose stool although improving and has imodium as needed. Cdiff testing was negative. Patient continued with bilateral lower extremity edema and was given a dose of IV lasix. Encouraged the patient to continue with compression stockings, increasing activity as tolerated, and elevating lower extremities while at rest. Will continue to follow along closely with CT surgery during hospitalization Prognosis is guarded Objective - Vital Signs Vital signs: Vital Signs Temp 98.7 F 07/29/21 04:00 Pulse 100 07/29/21 08:01 Resp 27 H 07/29/21 07:00 BP 91/69 07/29/21 07:00 Pulse Ox 91 L 07/29/21 07:00 Intake & Output 07/28/21 07/29/21 07/29/21 18:59 06:59 18:59 Intake Total 550 576 23 Output Total 1900 625 0 Balance -1350 -49 23 Weight 102.7 kg Intake: IV 300 276 23 CARDIAC OUTPUT 0.9 Sodium 20 Chloride PRESSURE BAG 0.9 Sodium 45 36 3 Chloride Sodium Chloride 0.9% 1, 235 240 20 000 ml @ 20 mls/hr IV . Q24H [facility] Rx#:[id number] Intake, IV Titration 100 Amount Milrinone-D5w Pmx 20 mg 100 In Dextrose/Water 1 100ml .bag @ 0.1 MCG/KG/MIN 3. 072 mls/hr IV .Q24H [facility] Rx#:[id number] Oral 250 200 Output: Chest Tube Drainage 50 Chest Tube Left Lateral 50 Chest Urine 1850 625 0 Other: Voiding Method Indwelling Catheter Urinal # Voids 0 0 ABP, PAP, CO, CI - Last Documented Arterial Blood Pressure 111/59 Pulmonary Artery Pressure 31/16 Cardiac Output 4.6 Cardiac Index 2.2 - Labs CBC & Chem 7: 07/29/21 04:11 07/29/21 04:11 Labs: Abnormal Lab Results - Last 24 Hours (Table) 07/28/21 07/28/21 07/28/21 Range/Units 08:10 11:13 16:34 RBC (4.30-5.90) m/uL Hgb (13.0-17.5) gm/dL Hct (39.0-53.0) % RDW (11.5-15.5) % Plt Count (150-450) k/uL Lymphocytes # (1.0-4.8) k/uL Sodium (137-145) mmol/L BUN (9-20) mg/dL Creatinine (0.66-1.25) mg/dL Glucose (74-99) mg/dL POC Glucose (mg/dL) 237 H 224 H 144 H (75-99) mg/dL Calcium (8.4-10.2) mg/dL ALT (4-49) U/L Total Protein (6.3-8.2) g/dL Albumin (3.5-5.0) g/dL 07/28/21 07/29/21 07/29/21 Range/Units 20:27 04:10 04:11 RBC 3.02 L (4.30-5.90) m/uL Hgb 9.7 L (13.0-17.5) gm/dL Hct 29.5 L (39.0-53.0) % RDW 16.6 H (11.5-15.5) % Plt Count 113 L (150-450) k/uL Lymphocytes # 0.7 L (1.0-4.8) k/uL Sodium (137-145) mmol/L BUN (9-20) mg/dL Creatinine (0.66-1.25) mg/dL Glucose (74-99) mg/dL POC Glucose (mg/dL) 122 H 134 H (75-99) mg/dL Calcium (8.4-10.2) mg/dL ALT (4-49) U/L Total Protein (6.3-8.2) g/dL Albumin (3.5-5.0) g/dL 07/29/21 07/29/21 Range/Units 04:11 06:43 RBC (4.30-5.90) m/uL Hgb (13.0-17.5) gm/dL Hct (39.0-53.0) % RDW (11.5-15.5) % Plt Count (150-450) k/uL Lymphocytes # (1.0-4.8) k/uL Sodium 133 L (137-145) mmol/L BUN 33 H (9-20) mg/dL Creatinine 1.30 H (0.66-1.25) mg/dL Glucose 135 H (74-99) mg/dL POC Glucose (mg/dL) 120 H (75-99) mg/dL Calcium 8.1 L (8.4-10.2) mg/dL ALT 130 H (4-49) U/L Total Protein 5.1 L (6.3-8.2) g/dL Albumin 2.7 L (3.5-5.0) g/dL
[2021-07-30] MEDS: HEPARIN SODIUM,PORCINE/PF 5,000 UNIT/0.5 ML SYRINGE SQ SCH ×3 (00:09→17:15)
[2021-07-30] MEDS: INSULIN ASPART (NovoLOG) 100 UNIT/ML VIAL SQ SCH ×5 (02:10→20:38)
[2021-07-30 02:12] LABS: Glucose,Whole Blood 85 mg/dL (75-99)
[2021-07-30 04:17] LABS: Anisocytosis Slight; Basophils % (A) 0 %; Eosinophils # (A) 0.2 k/uL (0-0.7); Eosinophils % (A) 3 %; HCT 30.9 % (39.0-53.0); HGB 10.4 gm/dL (13.0-17.5); Hypochromasia Slight; Lymphocytes # (A) 0.6 k/uL (1.0-4.8); Lymphocytes % (A) 12 %; MCH 33.1 pg (25.0-35.0); MCHC 33.5 g/dL (31.0-37.0); MCV 98.9 fL (80.0-100.0); Macrocytosis Slight; Mean Platelet Volume 8.7; Monocytes # (A) 0.4 k/uL (0-1.0); Monocytes % (A) 9 %; Neutrophils # (A) 3.7 k/uL (1.3-7.7); Neutrophils % (A) 74 %; Platelet Count 144 k/uL (150-450); RBC 3.13 m/uL (4.30-5.90); RDW 16.3 % (11.5-15.5); WBC 5.1 k/uL (3.8-10.6)
[2021-07-30 05:08] LABS: Ionized Calcium 4.7 mg/dL (4.5-5.3)
[2021-07-30 05:15] LABS: Albumin 2.6 g/dL (3.5-5.0); Calcium 7.9 mg/dL (8.4-10.2); Magnesium 2.1 mg/dL (1.6-2.3); Potassium 3.6 mmol/L (3.5-5.1); Total Bilirubin 1.2 mg/dL (0.2-1.3); Total Protein 4.9 g/dL (6.3-8.2)
[2021-07-30] MEDS ORDERED: POTASSIUM CHLORIDE ER 20 MEQ TAB.ER PO SCH (06:00)
[2021-07-30] MEDS: PANTOPRAZOLE 40 MG TABLET PO SCH (06:28)
[2021-07-30] MEDS: MIDODRINE 5 MG TAB PO SCH ×3 (06:28→20:20)
--- NOTE | 2021-07-30 06:55 | XR ---
EXAMINATION TYPE: XR chest 1V portable DATE OF EXAM: 07/30/2021 5:33 AM COMPARISON:Chest radiograph from one day prior. TECHNIQUE: Frontal view of the chest. CLINICAL INDICATION:Male, 75 years old with history of post cardiac surgery; FINDINGS: Lungs/Pleura: Similar basilar airspace opacities left greater than right. No evidence of pneumothorax or pleural effusion. Pulmonary vascularity: Unremarkable. Heart/mediastinum: Cardiomediastinal silhouette is enlarged and partially obscured due to overlying a nd adjacent opacities. Musculoskeletal: No acute osseous pathology. Other findings: Midline sternotomy wires and surgical clips project over the mediastinum. IMPRESSION: Marked cardiomegaly with bibasilar airspace opacities left greater than right may represent atelectas is and/or developing airspace disease.
[2021-07-30 07:00] LABS: Glucose,Whole Blood 124 mg/dL (75-99)
[2021-07-30] MEDS ORDERED: CALCIUM GLUCONATE 2 GM in SODIUM CHLORIDE 0.9% 100 ML IVPB ONE (07:11)
[2021-07-30] MEDS ORDERED: POTASSIUM CHLORIDE ER 20 MEQ TAB.ER PO STA (07:11)
[2021-07-30] MEDS ORDERED: FUROSEMIDE 10 MG/ML 4 ML VIAL IV ONE (08:14)
--- NOTE | 2021-07-30 08:14 | P.PN ---
Subjective Progress Note Date: 07/30/21 Principal diagnosis: Triple-vessel coronary artery disease, non-STEMI and admission, acute systolic heart failure present on admission, EF 30-35%, first-degree heart block, paroxys mal episodes of second-degree and complete heart block this admission, acute kidney injury, elevated CRP, pro-calcitonin on admission. Previous medical history of hypertension, hyperlipidemia, oqk-[id number] diabetes, never smoker, family history of heart disease, remains unvaccinated against covid POD #8 triple-vessel coronary artery bypass grafting using the left internal mammary artery to the left anterior descending coronary artery, reverse greater saphenous vein graft from the aorta to the second obtuse marginal coronary artery, and reverse greater saphenous vein graft from the aorta to the third obtuse marginal coronary artery. Aortic valve replacement using a 23 mm pericardial bioprosthetic Inspiris. Bilateral pulmonary vein isolation using bipolar radiofrequency energy from Atricure, exclusion of the left atrial appendage using a 40 mm Atriclip, intraoperative transesophageal echocardiogram, epi-aortic scanning and graft flow measurements using the Pythian-Stim system. Endoscopic harvesting of left greater saphenous vein from the ankle to the groin, and right greater saphenous vein from just below the knee to the groin. Postoperative acute blood loss anemia, expected given hemodilution and cardiopulmonary bypass. Hypotension, multifactorial Paroxysmal atrial fibrillation, a known common occurrence after cardiac surgery and expected due to his known preoperative atrial fibrillation. The patient was seen and examined this morning sitting up in the recliner in the ICU in no acute distress. He denies any pain or shortness of breath, states he feels better everyday. Currently in sinus rhythm with first degree AV block. Remains on low-dose IV Primacor. Received IV lasix again yesterday. Patient continues to show improvement daily. He has ambulated in the hallway with PT/OT, tolerated well. Repeat limited echo was read as improvement in LV function with EF now 50-55%. Objective - Vital Signs Vital signs: Vital Signs Temp 97.8 F 07/30/21 04:00 Pulse 67 07/30/21 07:00 Resp 16 07/30/21 07:00 BP 104/66 07/30/21 07:00 Pulse Ox 96 07/30/21 07:00 Intake & Output 07/29/21 07/30/21 07/30/21 18:59 06:59 18:59 Intake Total 407.725 260 Output Total 1450 300 Balance -1042.275 -40 Weight 102.5 kg Intake: IV 364 260 Calcium Gluconate 2 gm In 100 Sodium Chloride 0.9% 100 ml @ 100 mls/hr IVPB ONCE ONE Rx#:[id number] Magnesium Sulfate-D5w Pmx 100 1 gm In Dextrose/Water 1 100ml.bag @ 100 mls/hr IVPB Q[facility]H [facility] Rx#: [id number] PRESSURE BAG 0.9 Sodium 24 0 Chloride Sodium Chloride 0.9% 1, 140 260 000 ml @ 20 mls/hr IV . Q24H [facility] Rx#:[id number] Intake, IV Titration 43.725 Amount Milrinone-D5w Pmx 20 mg 43.725 In Dextrose/Water 1 100ml .bag @ 0.1 MCG/KG/MIN 3. 072 mls/hr IV .Q24H [facility] Rx#:[id number] Output: Urine 1450 300 Other: Voiding Method Urinal # Voids 0 0 # Bowel Movements 1 ABP, PAP, CO, CI - Last Documented Arterial Blood Pressure 98/36 Pulmonary Artery Pressure 31/16 Cardiac Output 4.6 Cardiac Index 2.2 - Exam CONSTITUTIONAL: Appears comfortable, cooperative, no acute distress RESPIRATORY: Lungs sounds diminished bilaterally. Respirations even, nonlabored. Currently on room air with oxygen saturation 95%. Able to achieve 1000 mL on incentive spirometry. Strong dry cough. CARDIOVASCULAR: S1, S2 present. Regular rate, rhythm, sinus rhythm with first degree AV block on telemetry. Sternum stable. Palpable peripheral pulses bilaterally. Generalized edema present but less than yesterday. No calf pain or tenderness noted. Heart hugger in place with patient demonstrating appropriate use. Antiembolism stockings, SCDs present. GASTROINTESTINAL: Abdomen soft, nontender, nondistended. Active bowel sounds present 4 quadrants. Tolerating diet. Positive bowel movement 07/29/21 GENITOURINARY: Continues to void 150-200 mL at a time, 1750 mL in the last 24 hours INTEGUMENTARY: Skin is warm and dry with evidence of good perfusion. Anterior chest incision well approximated and covered with dry intact dressing. Bilateral EVH sites well approximated without redness or drainage. NEUROLOGIC: Cranial nerves II through XII intact MUSKULOSKELETAL: Able to move all extremities, strength equal bilaterally, gait normal PSYCHIATRIC: Alert and oriented to person place and time, appropriate affect, intact judgment and insight INVASIVE LINES AND TUBES: A/V epicardial pacemaker wires present, connected to generator, AAI mode with backup rate 50 bpm. - Allied health notes Allied health notes reviewed: nursing - Labs CBC & Chem 7: 07/30/21 03:43 07/30/21 03:43 Labs: Abnormal Lab Results - Last 24 Hours (Table) 07/29/21 07/29/21 07/29/21 Range/Units 11:24 12:09 16:44 RBC (4.30-5.90) m/uL Hgb (13.0-17.5) gm/dL Hct (39.0-53.0) % RDW (11.5-15.5) % Plt Count (150-450) k/uL Lymphocytes # (1.0-4.8) k/uL Sodium (137-145) mmol/L BUN (9-20) mg/dL Glucose (74-99) mg/dL POC Glucose (mg/dL) 207 H 205 H 189 H (75-99) mg/dL Calcium (8.4-10.2) mg/dL ALT (4-49) U/L Total Protein (6.3-8.2) g/dL Albumin (3.5-5.0) g/dL 07/29/21 07/30/21 07/30/21 Range/Units 21:20 03:43 03:43 RBC 3.13 L (4.30-5.90) m/uL Hgb 10.4 L (13.0-17.5) gm/dL Hct 30.9 L (39.0-53.0) % RDW 16.3 H (11.5-15.5) % Plt Count 144 L (150-450) k/uL Lymphocytes # 0.6 L (1.0-4.8) k/uL Sodium 133 L (137-145) mmol/L BUN 29 H (9-20) mg/dL Glucose 107 H (74-99) mg/dL POC Glucose (mg/dL) 259 H (75-99) mg/dL Calcium 7.9 L (8.4-10.2) mg/dL ALT 110 H (4-49) U/L Total Protein 4.9 L (6.3-8.2) g/dL Albumin 2.6 L (3.5-5.0) g/dL 07/30/21 Range/Units 06:59 RBC (4.30-5.90) m/uL Hgb (13.0-17.5) gm/dL Hct (39.0-53.0) % RDW (11.5-15.5) % Plt Count (150-450) k/uL Lymphocytes # (1.0-4.8) k/uL Sodium (137-145) mmol/L BUN (9-20) mg/dL Glucose (74-99) mg/dL POC Glucose (mg/dL) 124 H (75-99) mg/dL Calcium (8.4-10.2) mg/dL ALT (4-49) U/L Total Protein (6.3-8.2) g/dL Albumin (3.5-5.0) g/dL - Imaging and Cardiology Chest x-ray: report reviewed, image reviewed Assessment and Plan Assessment: 1. Triple-vessel coronary artery disease, non-STEMI and admission, status post three-vessel CABG 2. Acute systolic heart failure present on admission, EF 30-35% 3. First-degree heart block, paroxysmal episodes of second-degree and complete heart block this admission 4. Acute kidney injury 5. Elevated CRP, pro-calcitonin on admission 6. Aortic stenosis, status post bioprosthetic aortic valve replacement 7. History of hypertension 8. History of hyperlipidemia, treated, cholesterol 129, LDL 71 9. Ftx-ujrmwgi-fcijlyyrb diabetes, hemoglobin A1c 8.6% 10. Never smoker, preoperative FEV1 72% of predicted 11. Family history of heart disease 12. Remains unvaccinated against covid 13. Preoperative as well as postoperative paroxysmal atrial fibrillation, status post bilateral pulmonary vein isolation and left atrial appendage ligation 14. Postoperative acute blood loss anemia, expected 15. Hypotension, multifactorial 16. Transaminitis, trending downward 17. Thrombocytopenia, expected, HIT negative Plan: 1. Continue low-dose aspirin, plavix, low dose beta jose raul 2. Continue to hold statin at this time due to his elevated liver enzymes. Once his liver enzymes are normalized we will restart his statin, likely will restart tomorrow 3. Encourage incentive spirometry use 10 times every hour while awake. Bronchodilators per pulmonology/critical care medicine. 4. Increase activity, ambulate as tolerated. PT/OT/cardiac rehab following. 5. Will monitor daily labs and chest x-rays. Electrolyte replacement per protocol. Avoid nephrotoxic agents. Will give 40 mg IV push Lasix 1. Calcium, potassium replaced 6. GI/DVT prophylaxis. 7. Insulin management per primary care service. The patient needs tight glucose control to prevent sternal wound infection and promote healing. 8. Continue Primacor drip at 0.1 mcg/kg/min for 24 hours 9. Pain control with current medication regimen. 10. Strict accurate intake and output. 11. Continue atrial and ventricular epicardial pacemaker wires, keep pacemaker generator at an AAI 50 BPM. 12. Continue Midodrine 10 mg by mouth 3 times a day. 13. Continue Amiodarone, will decrease per protocol 08/01/21. No anticoagulation until after device placed and epicardial pacemaker wires removed 14. Dr. Morse to possibly place permanent pacemaker on Sunday 15. Keep in ICU while connected to pacemaker generator 16. More recommendations to follow based on patient's clinical course. Time with Patient: Greater than 30
[2021-07-30] MEDS: METOPROLOL TARTRATE 12.5 MG TAB PO SCH ×2 (08:20→20:38)
[2021-07-30] MEDS: LOPERAMIDE 2 MG CAP PO SCH ×3 (08:21→20:33)
[2021-07-30] MEDS: ASPIRIN 81 MG PO SCH (08:22)
[2021-07-30] MEDS: SODIUM FERRIC GLUCONAT-SUCROSE 125 MG in SODIUM CHLORIDE 0.9% 100 ML IVPB SCH (08:32)
[2021-07-30] MEDS: IPRATROPIUM-ALBUTEROL 3 ML NEB INHALATION SCH ×4 (08:36→20:08)
[2021-07-30] MEDS: MILRINONE-D5W PMX 20 MG in DEXTROSE/WATER 1 100ML.BAG IV SCH (08:43)
[2021-07-30] MEDS: AMIODARONE 200 MG TAB PO SCH ×2 (08:49→20:38)
[2021-07-30 11:22] LABS: Glucose,Whole Blood 211 mg/dL (75-99)
[2021-07-30] MEDS: SODIUM CHLORIDE 0.9% 1,000 ML IV SCH (12:21)
--- NOTE | 2021-07-30 12:40 | P.PN ---
Subjective Progress Note Date: 07/30/21 This is a pleasant 75 years old male with past medical history of Diabetes Mellitus, Hyperlipidemia, Hypertension Patient presents because of the progressive exertional dyspnea and decreased leg swelling over one month, bilateral leg swelling and bilateral neck pain. However yesterday he started getting orthopnea, he could not lay down and his asked him to come to emergency room. Also patient is complaining of from dry cough and sore throat, mouth is making some clear phlegm. He denies chest pain or abdominal pain. No dizziness. He was complaining of from little diarrhea, he felt almost going to vomit this morning but did not. No urinary complaints. No weakness or numbness He denies smoking, alcohol or illicit drugs Vitals are stable and he is saturating 96% on room air. Labs were reviewed including unremarkable CBC except for mild lymphopenia at 0.7, INR is 1.0. Sodium is 124, carbon dioxide 17, creatinine 1.1, glucose 220 Liver enzymes not elevated. Troponin is high as 0.418, C-reactive protein 2.0. ProBNP is 4880 Coronavirus not detected. EKG showing normal sinus rhythm at 85 with first-degree AV block and incomplete right bundle branch block, no significant ST-T changes. Chest x-ray: Interstitial pulmonary edema with increased cardiomegaly In the emergency room patient was started on IV Lasix 40 mg every 8 hours and cardiology team were consulted. 07/17/2021 Patient breathing is better, he does not complain from jaw pain or neck pain anymore, he is breathing easier, less leg edema. Patient is continued on IV Lasix 40 mg twice daily, also he is on heparin drip His sodium is improved today to 1.7 however his creatinine went up to 1.4. Because of his worsening kidney function we hold his metformin and switch him to Amaryl 2 mg daily, patient informed of his uncontrolled diabetes as his hemoglobin A1c is a 42.6%. Echocardiogram showed ejection fraction of 30-35% with moderate mitral regurgitation, 2018 8 was 55-60% Patient possibly will go for cardiac cath tomorrow 07/18/2021 Patient feels better, his breathing is easier. He has no more jaw pain, leg swelling is significantly improved he has crepitationandonlyminimal. He has some wheezing during examination most likely secondary to his CHF, patient is nonsmoker with no history of COPD. He is hemodynamically stable, he is on room air. Creatinine is trending up 1.1, 1.4, and 1.58 today. However sodium significantly improved up to 133. His Lasix was switched to 40 mg by mouth daily. His glucose is controlled 136 and 142 after he was started on Amaryl today we will keep monitoring, metformin was held for his acute kidney injury. He has slight ejection fraction of 30-35% with moderate MR and he needs cardiac cath however it is on hold now to further evaluation for his kidney injury, most likely secondary to diuresis, nephrology team was consulted, renal ultrasound is pending. 81 mg 07/19/2021 Patient breathing is improved close to normal however he has some residual basal crepitation which is mild. Very minimal leg swelling. No much exertional dyspnea. And his diuretics are switched to oral dose again Lasix 40 mg daily His creatinine improved 1.3 from 1.8 yesterday. Glucose less than 150. After switching his metformin and to Amaryl 2 mg daily. Hemoglobin A1c is 8.6% Plan for him to go for cardiac cath today. Renal ultrasound showing no hydronephrosis. Tenderness on home dose of aspirin 81 mg, oral Lasix and metoprolol 07/20/2021 Today with minimal dyspnea however he still have bilateral basal crepitation and leg edema, he is saturating 95-96% on 2 L oxygen via nasal cannula. His creatinine slightly up to 1.5. Glucose controlled. Renal ultrasound showing no hydronephrosis. Cardiac cath yesterday showing severe triple coronary artery disease, referred to thoracic surgery been consulted for possible CABG 07/21/2021 Patient currently sitting in bed looks comfortable, no chest pain, no significant dyspnea. Using his incentive spirometry frequently. He is cu rrently kept on heparin drip. Minimal leg swelling, mild basal crepitation. He is hemodynamically stable. He is saturating 97% on 2 L oxygen via nasal cannula. His sodium 132, creatinine improved to 1.28, glucose controlled while he is on Amaryl 2 mg. His metformin, metoprolol and lisinopril are on hold for hypertension acute kidney injury. Patient currently has been worked up for possible cardiac bypass surgery with cardiovascular surgery team on the case. 07/22/2021 Patient is going for cardiac bypass surgery today. This with no chest pain or dyspnea. Hemodynamically stable. Glucose controlled however it might be needed to be started on insulin drip. Most likely patient will go to the intensive care unit post procedure. We will follow up with him 07/23/2021 Patient status post multiple vessel coronary artery bypass grafting for severe triple coronary artery disease and aortic valve replacement for severe aortic stenosis and today is postop day #1. Patient was sitting in chair, awake but very drowsy however he is able to follow commands with minimal movement. Because of his generalized weakness. Patient has hypotension that required pressors in the form of vasodepressor at 0.03 and levophed at 0.14. Also he has some low-grade temperature at 100.9. He is tachypneic at 29, oxygen saturation and requirements is at 4 L/m. He developed postoperative hyperkalemia at 6.3, corrected with 10 units of insulin and D50 ample down to 5.1. He has drop of hemoglobin down to 7.3 and he is getting 1 unit of blood transfusion. Platelet count 108. Sodium is 132, creatinine 1.6 which is close to baseline as he has chronic kidney disease. Never enzymes significantly elevated with AST 568 and ALT 343. Chest x-ray showing no mild pulmonary vascular congestion and receives one-time dose of IV Lasix 20 mg Also he is on insulin drip while metformin and Amaryl are on hold. Blood pressure medication of metoprolol and lisinopril were held prior to surgery because of hypotension and acute kidney injury. Patient currently kept on home dose of aspirin 81 mg and added Mavik 75 mg 07/24/2021 Patient sitting in chair, his mentation improving today and he follows commands with no difficulty moving her arms or legs but he looks very tired and lethargic. Blood pressure is 93/74. Heart rate is around 70. He had no fever today and his respiratory rate is 24-28 and his oxygen saturation is acceptable and 2 L/m of oxygen. His sodium is 140, creatinine stable at 1.6 but liver enzymes trending up to 1133 and AST and ALT is still up about 497. Glucose controlled on insulin drip. He received one unit of blood transfusion in hemoglobin went up 7.38 to 9.1. Platelets 85K. Lipase is normal at 7.3. Chest x-ray showing postsurgical changes and chest tubes are unchanged in pos ition while there is decrease in vascular congestion. His pO2 was one and he is currently on BiPAP with FiO2 of 40%. He remains on amiodarone drip which is added for new onset A. fib. Also his continued on aspirin 81 mg which is home dose and added Plavix in the hospital. 07/25/2021 Patient remains monitored closely in the ICU under critical condition, he is very lethargic but awake and follow commands. His blood pressure is 108/59 and 80/40. That needs pressors. Heart rate is 94. Labs reviewed showing AST is 571 which is improving and ALT fourth 97. Glucose is controlled but around 200. Bilirubin is elevated at 2.1. Her hemoglobin is stable at 10.2. Platelet to 62K and white BC is 10 K. Chest x-ray showing no change with cardiomegaly and bibasilar infiltrates. Ejection fraction is still low at 25-30%. Patient remains on many risks are slightly renal. He is on aspirin and Plavix. And antihypertensive medications are on hold.. 07/26/2021 Patient looks less distressed today sitting in chair most of the time, minimal chest pain. Chest tubes in a Place. His blood pressure is 160/50, heart rate 94, sodium 134, creatinine 1.6. ast 264 and alt 385. bilirubin improved 2.1 down to 1.5. glucose is controlled. hemoglobin 9.6, platelet count 76. chest x-ray showing cardiomegaly with a stable chest tube on the left side and left lower lobe infiltrate stable as well. patient today is a started on fondaparinux, also he is on aspirin and plavix, he needed amiodarone. 07/27/2021 Patient is seen and evaluated and follow-up continues to be closely monitored in the ICU. We are following closely with cardiothoracic surgery and multiple medical consultations including nephrology, pulmonary, cardiology are following closely. Patient continues with chest tubes and is currently sitting up in the chair and working with physical therapy. Chest x-ray today shows postoperative findings with probable basilar atelectasis and possible associated effusion. Per nursing staff and patient patient has had multiple episodes of loose stool and will order C. diff. If negative will consider Imodium and monitor for improvement. Blood sugars being closely monitored patient continues on sliding scale. 07/28/2021 Patient is seen in follow-up today continues to be in the ICU being closely monitored with multiple medical consultations following. Patient had chest tubes and catheter from the neck removed today and is currently sitting up in the chair on room air. Patient is weak and will require physical therapy. C. diff testing was negative and patient continues with some loose stool and will add Imodium. Chest x-ray today shows persistent cardiomegaly with left greater than right bibasilar infiltrates and/or atelectasis and small bilateral pleural effusion are redemonstrated with no significant change. Patient does have incentive spirometer at the bedside and encourage the patient to continue using at least 10 times every hour while awake. 07/29/2021 Patient is seen today and continues to be in the ICU being closely monitored and we are following with cardiothoracic surgery as patient is recently status post CABG. Discussion is possible AICD placement in the next 2-3 days prior to discharge if needed although not currently requiring pacer support. 2d echo ordered and pending. Patient continues with some lower extremity edema and has received a dose of Lasix today. Patient with compression stockings and per patient legs are extremely tender to the touch and taut. Encourage the patient to elevate lower extremities as well at rest. Chest xray today shows Persistent cardiomegaly with left greater than right bibasilar infiltrates and or atelectasis and small bilateral pleural effusions are again remonstrated with no significant change from previous day and no pneumothorax noted from chest tube removal one day ago. Labs: WBC is 5.1, hemoglobin is 9.7, platelets are 113, sodium is 133, potassium 3.8, BUN 33, creatinine 1.30, calcium 8.1, magnesium 1.9 07/30/2020 Patient evaluated today in the ICU sitting up in the chair. he continues on primacor gtt, with pacer wire in place. Plan is for possible pacemaker on sunday. Patient is alert and oriented, appropriate. He is using his IS with a volume of [id number] without difficulty. He is able to take deep breaths with minimal to no pain at incision site. He does have a congested cough intermittent with no sputum production. Tolerating diet. Otherwise no acute events overnight and his only complaint is a sore bottom due to sitting. He has been ambulating. Mild lower extremity edema, drier take off tender to touch. Repeat chest xray today shows Marked cardiomegaly with bibasilar airspace opacities left greater than right may represent atelectasis and or developing airspace disease. Labs reviewed: WBC 5.1, hgb 10.4, platelets are 144, sodium 133, potassium 3.6, BUN 29, creatinine 1.14, calcium 7.9, magnesium 2.1 ALT 110, protein 4.9. Blood sugars ranging between 85 and 211. Review of systems: Constitutional: No reports of fatigue, fever, or chills Cardiovascular: No reports of chest pain or palpitations Respiratory: No reports of shortness of breath or cough GI: No reports of nausea, vomiting, improvement in diarrhea : No reports of dysuria or retention Neurovascular: reports of generalized weakness, reports bilateral lower extremity edema that is painful and taut. All medications have been reviewed Physical exam: GENERAL: The patient is alert and oriented x3, not in any acute distress. Well developed, well nourished. HEENT: Pupils are round and equally reacting to light. EOMI. No scleral icterus. No conjunctival pallor. Normocephalic, atraumatic. No pharyngeal erythema. No thyromegaly. CARDIOVASCULAR: S1 and S2 present. No murmurs, rubs, or gallops. PULMONARY: Chest is clear to auscultation, no wheezing ABDOMEN: Soft, nontender, nondistended, normoactive bowel sounds. No palpable organomegaly. MUSCULOSKELETAL: No joint swelling or deformity. EXTREMITIES: No cyanosis, clubbing, . Bilateral generalized leg edema. NEUROLOGICAL: Gross neurological examination did not reveal any focal deficits. SKIN: No rashes. No petechiae Assessment: severe triple coronary artery disease, status post multiple vessel CABG Severe aortic stenosis status post aortic valve replacement Acute systolic heart failure, ischemic cardiomyopathy is suspected with ejection fraction of 30-35%, now with an EF of 50-55% s/p CABG. First degree heart block with episodes of second to complete heart block, possible pacemaker Sunday. NSTEMI Acute kidney injury, suspected secondary to diuresis. And also possibly due to his chronic kidney disease stage III, improving Hypotension requiring pressors postoperatively, patient is off pressors, improved Postoperative anemia requiring 1 unit of blood transfusion, hemoglobin has stabilized Sore throat, improved, coronavirus is negative Hyponatremia Diabetes mellitus, With hyperglycemia upon admission . Hemoglobin A1c is 8.6% Paroxysmal atrial fibrillation preoperative and postoperative, patient is on an oral amiodarone taper managed by primary Hypertension Hyperlipidemia GI prophylaxis DVT prophylaxis full code Plan: This is a pleasant 75 years old male who presented with possible acute CHF and high troponin. N-stemi and underwent CABG on 07/22. Continue to monitor blood pressure, off pressor support. 2d echo ordered and EF is improved at 50-55%, patient continues with pacer wires and is connected to external pacemaker althought not pacing at this time, possible pacemaker on sunday, ongoing evaluation and monitoring. Continue in ICU for now. Continue with aspirin and Plavix Recommend Accu-Cheks before meals at bedtime and monitoring glucose while keeping the patient on insulin sliding scale Cardiology, pulmonary, nephrology following and cardiology Monitor hemoglobin, hemoglobin is stable at 10.4 Patient continues with loose stool although improving and has imodium as needed. Cdiff testing was negative. Patient continued with bilateral lower extremity edema and was given IV Lasix yesterday. Encouraged the patient to continue with compression stockings, increasing activity as tolerated, and elevating lower extremities while at rest. Will continue to follow along closely with CT surgery during hospitalization Prognosis is guarded Objective - Vital Signs Vital signs: Vital Signs Temp 98.5 F 07/30/21 08:00 Pulse 68 07/30/21 12:04 Resp 21 07/30/21 12:00 BP 117/69 07/30/21 12:00 Pulse Ox 97 07/30/21 12:00 Intake & Output 07/29/21 07/30/21 07/30/21 18:59 06:59 18:59 Intake Total 407.725 316.275 306.502 Output Total 5428 612 4180 Balance -1042.275 16.275 -1343.498 Weight 102.5 kg Intake: IV 364 260 100 Calcium Gluconate 2 gm In 100 Sodium Chloride 0.9% 100 ml @ 100 mls/hr IVPB ONCE ONE Rx#:[id number] Magnesium Sulfate-D5w Pmx 100 1 gm In Dextrose/Water 1 100ml.bag @ 100 mls/hr IVPB Q1H [facility] Rx#: [id number] PRESSURE BAG 0.9 Sodium 24 0 60 Chloride Sodium Chloride 0.9% 1, 140 260 40 000 ml @ 20 mls/hr IV . Q24H [facility] Rx#:[id number] Intake, IV Titration 43.725 56.275 206.502 Amount Calcium Gluconate 2 gm In 100 Sodium Chloride 0.9% 100 ml @ 100 mls/hr IVPB ONCE ONE Rx#:[id number] Milrinone-D5w Pmx 20 mg 43.725 56.275 6.502 In Dextrose/Water 1 100ml .bag @ 0.1 MCG/KG/MIN 3. 072 mls/hr IV .Q24H [facility] Rx#:[id number] Sodium Ferric Gluconat- 100 Sucrose 125 mg In Sodium Chloride 0.9% 100 ml @ 100 mls/hr IVPB DAILY [facility] Rx#:[id number] Output: Urine [id number] [id number] [id number] Other: Voiding Method Urinal Urinal # Voids 0 0 0 # Bowel Movements 1 ABP, PAP, CO, CI - Last Documented Arterial Blood Pressure 98/36 Pulmonary Artery Pressure 31/16 Cardiac Output 4.6 Cardiac Index 2.2 - Labs CBC & Chem 7: 07/30/21 03:43 07/30/21 03:43 Labs: Abnormal Lab Results - Last 24 Hours (Table) 07/29/21 07/29/21 07/30/21 Range/Units 16:44 21:20 03:43 RBC 3.13 L (4.30-5.90) m/uL Hgb 10.4 L (13.0-17.5) gm/dL Hct 30.9 L (39.0-53.0) % RDW 16.3 H (11.5-15.5) % Plt Count 144 L (150-450) k/uL Lymphocytes # 0.6 L (1.0-4.8) k/uL Sodium (137-145) mmol/L BUN (9-20) mg/dL Glucose (74-99) mg/dL POC Glucose (mg/dL) 189 H 259 H (75-99) mg/dL Calcium (8.4-10.2) mg/dL ALT (4-49) U/L Total Protein (6.3-8.2) g/dL Albumin (3.5-5.0) g/dL 07/30/21 07/30/21 07/30/21 Range/Units 03:43 06:59 11:19 RBC (4.30-5.90) m/uL Hgb (13.0-17.5) gm/dL Hct (39.0-53.0) % RDW (11.5-15.5) % Plt Count (150-450) k/uL Lymphocytes # (1.0-4.8) k/uL Sodium 133 L (137-145) mmol/L BUN 29 H (9-20) mg/dL Glucose 107 H (74-99) mg/dL POC Glucose (mg/dL) 124 H 211 H (75-99) mg/dL Calcium 7.9 L (8.4-10.2) mg/dL ALT 110 H (4-49) U/L Total Protein 4.9 L (6.3-8.2) g/dL Albumin 2.6 L (3.5-5.0) g/dL
--- NOTE | 2021-07-30 13:54 | P.PN ---
Subjective Progress Note Date: 07/30/21 Follow-up for acute kidney injury and volume overload. Sitting in the chair feels better. Objective - Vital Signs Vital signs: Vital Signs Temp 98.5 F 07/30/21 08:00 Pulse 74 07/30/21 13:00 Resp 28 H 07/30/21 13:00 BP 114/75 07/30/21 13:00 Pulse Ox 93 L 07/30/21 13:00 Intake & Output 07/29/21 07/30/21 07/30/21 18:59 06:59 18:59 Intake Total 407.725 316.275 326.502 Output Total 8951 228 1438 Balance -1042.275 16.275 -1673.498 Weight 102.5 kg Intake: IV 364 260 120 Calcium Gluconate 2 gm In 100 Sodium Chloride 0.9% 100 ml @ 100 mls/hr IVPB ONCE ONE Rx#:[id number] Magnesium Sulfate-D5w Pmx 100 1 gm In Dextrose/Water 1 100ml.bag @ 100 mls/hr IVPB Q1H [facility] Rx#: [id number] PRESSURE BAG 0.9 Sodium 24 0 80 Chloride Sodium Chloride 0.9% 1, 140 260 40 000 ml @ 20 mls/hr IV . Q24H [facility] Rx#:[id number] Intake, IV Titration 43.725 56.275 206.502 Amount Calcium Gluconate 2 gm In 100 Sodium Chloride 0.9% 100 ml @ 100 mls/hr IVPB ONCE ONE Rx#:[id number] Milrinone-D5w Pmx 20 mg 43.725 56.275 6.502 In Dextrose/Water 1 100ml .bag @ 0.1 MCG/KG/MIN 3. 072 mls/hr IV .Q24H [facility] Rx#:[id number] Sodium Ferric Gluconat- 100 Sucrose 125 mg In Sodium Chloride 0.9% 100 ml @ 100 mls/hr IVPB DAILY [facility] Rx#:[id number] Output: Urine 5667 872 6830 Other: Voiding Method Urinal Urinal # Voids 0 0 0 # Bowel Movements 1 ABP, PAP, CO, CI - Last Documented Arterial Blood Pressure 98/36 Pulmonary Artery Pressure 31/16 Cardiac Output 4.6 Cardiac Index 2.2 - Exam No acute distress S1-S2 heard Decreased breath sounds Edema. - Labs CBC & Chem 7: 07/30/21 03:43 07/30/21 03:43 Labs: Abnormal Lab Results - Last 24 Hours (Table) 07/29/21 07/29/21 07/30/21 Range/Units 16:44 21:20 03:43 RBC 3.13 L (4.30-5.90) m/uL Hgb 10.4 L (13.0-17.5) gm/dL Hct 30.9 L (39.0-53.0) % RDW 16.3 H (11.5-15.5) % Plt Count 144 L (150-450) k/uL Lymphocytes # 0.6 L (1.0-4.8) k/uL Sodium (137-145) mmol/L BUN (9-20) mg/dL Glucose (74-99) mg/dL POC Glucose (mg/dL) 189 H 259 H (75-99) mg/dL Calcium (8.4-10.2) mg/dL ALT (4-49) U/L Total Protein (6.3-8.2) g/dL Albumin (3.5-5.0) g/dL 07/30/21 07/30/21 07/30/21 Range/Units 03:43 06:59 11:19 RBC (4.30-5.90) m/uL Hgb (13.0-17.5) gm/dL Hct (39.0-53.0) % RDW (11.5-15.5) % Plt Count (150-450) k/uL Lymphocytes # (1.0-4.8) k/uL Sodium 133 L (137-145) mmol/L BUN 29 H (9-20) mg/dL Glucose 107 H (74-99) mg/dL POC Glucose (mg/dL) 124 H 211 H (75-99) mg/dL Calcium 7.9 L (8.4-10.2) mg/dL ALT 110 H (4-49) U/L Total Protein 4.9 L (6.3-8.2) g/dL Albumin 2.6 L (3.5-5.0) g/dL Assessment and Plan Assessment: #1 nonoliguric acute kidney injury secondary to hemodynamic ATN status post CABG. #2 chronic kidney disease stage III A secondary to nephrosclerosis with a baseline creatinine of 1.0-1.2 MG per DL. #3 atrial fibrillation with RVR. #4 hypervolemic hyponatremia. #5 CAD status post CABG #6 atrial fibrillation #7 volume overload Plan: #1 currently on Lasix as needed 40 mg IV daily. #2 with volume, add Lasix 20 mg IV every 8 with the goal net negative off 2.0- 2.5 L. #3 renal function stable. #4 avoid nephrotoxic agents.
--- NOTE | 2021-07-30 14:06 | P.PN ---
Subjective Progress Note Date: 07/30/21 Principal diagnosis: Status post triple-vessel CABG postoperative day #8. POD #5 triple-vessel coronary artery bypass grafting using the left internal mammary artery to the left anterior descending coronary artery, reverse greater saphenous vein graft from the aorta to the second obtuse marginal coronary artery, and reverse greater saphenous vein graft from the aorta to the third obtuse marginal coronary artery. Aortic valve replacement using a 23 mm pericardial bioprosthetic Inspiris. Bilateral pulmonary vein isolation using bipolar radiofrequency energy from Atricure, exclusion of the left atrial appendage using a 40 mm Atriclip, intraoperative transesophageal echocardiogram, epi-aortic scanning and graft flow measurements using the [email or web address] system. Endoscopic harvesting of left greater saphenous vein from the ankle to the groin, and right greater saphenous vein from just below the knee to the groin. Patient was reevaluated today on 07/27/2020, patient is still in the ICU, he is on 2 L nasal cannula, still requiring milrinone at 3 mcg/kg/m, he is off norepin ephrine, patient is off vasopressin, continues to have a relatively low cardiac output of 3.4 and cardiac index of 1.6. His pulmonary artery pressure is 27/12 CVP is 13. Incentive spirometry achieving about 7 50 mL. Chest x-ray does not show any evidence of congestive heart failure. Clinically the patient seems to be doing fairly well, continues to have a left sided chest tube in place. WBC c ount is 7 hemoglobin is 9.8. ABG this morning showed a pO2 of 96 pCO2 33 pH of 7.45. Basic metabolic profile is normal BUN is 43 creatinine is down to 1.28 from 1.60 yesterday. Patient continues to have atrial pacing at 86 bpm this morning, his underlying rhythm is sinus rhythm with first-degree AV block. Heart rate in the 70s. Intermittently had short periods of atrial fibrillation. Reevaluated today on 07/30/2021, patient remains in the ICU, still on milrinone at 0.1 mcg/kg/m. Patient does not seem to be in any distress, chest x-ray is showing small pleural effusions and atelectasis. Patient remains on room air. Denies any shortness of breath or pain. He is in sinus rhythm with first-degree AV block. Received Lasix early this morning. And he seems to be responding well to diuretics. No major issues over the last 24 hours, all his chest tubes have been removed. And chest x-ray was reviewed today. Objective - Vital Signs Vital signs: Vital Signs Temp 98.5 F 07/30/21 08:00 Pulse 74 07/30/21 13:00 Resp 28 H 07/30/21 13:00 BP 114/75 07/30/21 13:00 Pulse Ox 93 L 07/30/21 13:00 Intake & Output 07/29/21 07/30/21 07/30/21 18:59 06:59 18:59 Intake Total 407.725 316.275 326.502 Output Total 2120 327 8426 Balance -1042.275 16.275 -1673.498 Weight 102.5 kg Intake: IV 364 260 120 Calcium Gluconate 2 gm In 100 Sodium Chloride 0.9% 100 ml @ 100 mls/hr IVPB ONCE ONE Rx#:[id number] Magnesium Sulfate-D5w Pmx 100 1 gm In Dextrose/Water 1 100ml.bag @ 100 mls/hr IVPB Q1H [facility] Rx#: [id number] PRESSURE BAG 0.9 Sodium 24 0 80 Chloride Sodium Chloride 0.9% 1, 140 260 40 000 ml @ 20 mls/hr IV . Q24H [facility] Rx#:[id number] Intake, IV Titration 43.725 56.275 206.502 Amount Calcium Gluconate 2 gm In 100 Sodium Chloride 0.9% 100 ml @ 100 mls/hr IVPB ONCE ONE Rx#:[id number] Milrinone-D5w Pmx 20 mg 43.725 56.275 6.502 In Dextrose/Water 1 100ml .bag @ 0.1 MCG/KG/MIN 3. 072 mls/hr IV .Q24H [facility] Rx#:[id number] Sodium Ferric Gluconat- 100 Sucrose 125 mg In Sodium Chloride 0.9% 100 ml @ 100 mls/hr IVPB DAILY [facility] Rx#:[id number] Output: Urine 7518 877 2693 Other: Voiding Method Urinal Urinal # Voids 0 0 0 # Bowel Movements 1 ABP, PAP, CO, CI - Last Documented Arterial Blood Pressure 98/36 Pulmonary Artery Pressure 31/16 Cardiac Output 4.6 Cardiac Index 2.2 - Exam CONSTITUTIONAL: Revealed 75-year-old white male on room air, in no distress. RESPIRATORY: Diminished breath sounds at the bases, no crackles or rhonchi or wheezes. CARDIOVASCULAR: Distant S1 and S2, no S3 gallop. GASTROINTESTINAL: Soft nontender no megaly no rebound. INTEGUMENTARY: No rashes.. Anterior chest incision covered with dry intact dressing. NEUROLOGIC: Alert and oriented 3 no gross focal deficits. MUSKULOSKELETAL: No deformities noted limitation in range of motion. PSYCHIATRIC: Normal mood affect and normal mental status examination. - Labs CBC & Chem 7: 07/30/21 03:43 07/30/21 03:43 Labs: Abnormal Lab Results - Last 24 Hours (Table) 07/29/21 07/29/21 07/30/21 Range/Units 16:44 21:20 03:43 RBC 3.13 L (4.30-5.90) m/uL Hgb 10.4 L (13.0-17.5) gm/dL Hct 30.9 L (39.0-53.0) % RDW 16.3 H (11.5-15.5) % Plt Count 144 L (150-450) k/uL Lymphocytes # 0.6 L (1.0-4.8) k/uL Sodium (137-145) mmol/L BUN (9-20) mg/dL Glucose (74-99) mg/dL POC Glucose (mg/dL) 189 H 259 H (75-99) mg/dL Calcium (8.4-10.2) mg/dL ALT (4-49) U/L Total Protein (6.3-8.2) g/dL Albumin (3.5-5.0) g/dL 07/30/21 07/30/21 07/30/21 Range/Units 03:43 06:59 11:19 RBC (4.30-5.90) m/uL Hgb (13.0-17.5) gm/dL Hct (39.0-53.0) % RDW (11.5-15.5) % Plt Count (150-450) k/uL Lymphocytes # (1.0-4.8) k/uL Sodium 133 L (137-145) mmol/L BUN 29 H (9-20) mg/dL Glucose 107 H (74-99) mg/dL POC Glucose (mg/dL) 124 H 211 H (75-99) mg/dL Calcium 7.9 L (8.4-10.2) mg/dL ALT 110 H (4-49) U/L Total Protein 4.9 L (6.3-8.2) g/dL Albumin 2.6 L (3.5-5.0) g/dL Assessment and Plan Assessment: Impression: Triple-vessel coronary artery disease and non-ST elevation myocardial infarction status post three-vessel CABG. Acute systolic congestive heart failure on presentation with ejection fraction of 30-35%. Aortic stenosis, status post bioprosthetic aortic valve replacement History of hypertension. Preoperative and postoperative atrial fibrillation Postoperative blood loss anemia, expected. Type 2 diabetes. Acute kidney injury. Recommendation: Continue present supportive care measures Continue inotropic. Being addressed by thoracic surgery on the case, may be discontinued today. Continue amiodarone. Continue incentive spirometry. Continue to monitor renal profile. Early ambulation. We will continue to follow. Time with Patient: Less than 30
--- NOTE | 2021-07-30 15:01 | PN ---
PROGRESS NOTE FOLLOW-UP NOTE: This is a 75-year-old gentleman with coronary artery disease, status post CABG, postoperative day number 9, history of atrial fibrillation, status post pulmonary vein isolation and exclusion of the left atrial appendage, cardiomyopathy, aortic stenosis, status post aortic valve replacement, and bradycardia prior to surgery. Patient is doing well. Denies chest pain or difficulty in breathing. He is currently on aspirin, amiodarone 400 b.i.d., Plavix 75 daily, Lopressor 12.5 b.i.d. On exam, he remains in sinus rhythm. Heart rate is 68 beats per minute. Blood pressure is 117/69, respiratory rate 18. Monitor shows that he is in sinus rhythm with prolonged first-degree AV block, which was noted prior to surgery. He has not used the pacemaker in the last 24 hours. Chest exam reveals diminished air entry bilaterally. Heart exam reveals first and second heart sounds. No gallop. Examination of extremities reveals moderate edema. Peripheral pulses are felt. Labs show a hemoglobin of 10.4, platelet count is 144, potassium is 3.6, creatinine is 1.1. ASSESSMENT: 1. Coronary artery disease, status post coronary artery bypass grafting, postoperative day number 9. 2. Aortic stenosis, status post aortic valve replacement. 3. History of atrial fibrillation. 4. History of bradycardia. PLAN: Patient is doing much better. The echocardiogram shows that the LV function has improved. It is currently at 50% to 55%. The patient does not need any ICD, as the LV function had improved, and he does not need a permanent pacemaker, as he has not had any further episodes of high-grade AV block. I am going to decrease the dose of amiodarone to 200 b.i.d. and continue the metoprolol that he is on. MMODL / IJN: [id number] /
[2021-07-30] MEDS ORDERED: POTASSIUM CHLORIDE ER 20 MEQ TAB.ER PO ONE (16:00)
[2021-07-30 16:52] LABS: Glucose,Whole Blood 156 mg/dL (75-99)
[2021-07-30] MEDS: FUROSEMIDE 10 MG/ML 2 ML VIAL IV SCH (17:15)
[2021-07-30 20:30] LABS: Glucose,Whole Blood 228 mg/dL (75-99)
[2021-07-30] MEDS ORDERED: AMIODARONE 100 MG TAB PO SCH (21:00)
[2021-07-31] MEDS: FUROSEMIDE 10 MG/ML 2 ML VIAL IV SCH ×3 (00:15→21:05)
[2021-07-31] MEDS: HEPARIN SODIUM,PORCINE/PF 5,000 UNIT/0.5 ML SYRINGE SQ SCH ×3 (00:15→16:01)
[2021-07-31 02:41] LABS: Glucose,Whole Blood 117 mg/dL (75-99)
[2021-07-31] MEDS: INSULIN ASPART (NovoLOG) 100 UNIT/ML VIAL SQ SCH ×6 (02:41→21:09)
[2021-07-31 06:53] LABS: Glucose,Whole Blood 164 mg/dL (75-99)
[2021-07-31] MEDS: PANTOPRAZOLE 40 MG TABLET PO SCH (06:55)
[2021-07-31] MEDS: MIDODRINE 5 MG TAB PO SCH ×3 (06:55→17:23)
[2021-07-31] MEDS: IPRATROPIUM-ALBUTEROL 3 ML NEB INHALATION SCH ×5 (07:23→21:30)
[2021-07-31] MEDS: FONDAPARINUX 2.5 MG/0.5 ML SYRINGE SQ SCH (07:43)
[2021-07-31] MEDS: FUROSEMIDE 40 MG TAB PO SCH (07:45)
[2021-07-31] MEDS: hydrALAZINE HCL 25 MG TAB PO SCH (07:45)
[2021-07-31] MEDS: FAMOTIDINE 20 MG TAB PO SCH (07:46)
[2021-07-31] MEDS: SODIUM CHLORIDE 0.9% 1,000 ML IV SCH (07:49)
[2021-07-31] MEDS: MILRINONE-D5W PMX 20 MG in DEXTROSE/WATER 1 100ML.BAG IV SCH (07:50)
[2021-07-31] MEDS: ASPIRIN 81 MG PO SCH ×2 (07:52→07:59)
[2021-07-31] MEDS: ASPIRIN 325 MG TAB PO SCH (07:53)
[2021-07-31] MEDS: CLOPIDOGREL 75 MG TAB PO SCH (07:59)
[2021-07-31] MEDS: METOPROLOL TARTRATE 12.5 MG TAB PO SCH ×2 (07:59→21:05)
[2021-07-31] MEDS: AMIODARONE 200 MG TAB PO SCH ×2 (07:59→21:05)
[2021-07-31] MEDS: LOPERAMIDE 2 MG CAP PO SCH ×3 (08:00→21:24)
--- NOTE | 2021-07-31 08:29 | P.PN ---
Subjective Progress Note Date: 07/31/21 Principal diagnosis: Triple-vessel coronary artery disease, non-STEMI and admission, acute systolic heart failure present on admission, EF 30-35%, first-degree heart block, paroxys mal episodes of second-degree and complete heart block this admission, acute kidney injury, elevated CRP, pro-calcitonin on admission. Previous medical history of hypertension, hyperlipidemia, avn-ktuttqd-yrifzfegn diabetes, never smoker, family history of heart disease, remains unvaccinated against covid POD #9 triple-vessel coronary artery bypass grafting using the left internal mammary artery to the left anterior descending coronary artery, reverse greater saphenous vein graft from the aorta to the second obtuse marginal coronary artery, and reverse greater saphenous vein graft from the aorta to the third obtuse marginal coronary artery. Aortic valve replacement using a 23 mm pericardial bioprosthetic Inspiris. Bilateral pulmonary vein isolation using bipolar radiofrequency energy from Atricure, exclusion of the left atrial appendage using a 40 mm Atriclip, intraoperative transesophageal echocardiogram, epi-aortic scanning and graft flow measurements using the [employer]im system. Endoscopic harvesting of left greater saphenous vein from the ankle to the groin, and right greater saphenous vein from just below the knee to the groin. Postoperative acute blood loss anemia, expected given hemodilution and cardiopulmonary bypass. Hypotension, multifactorial Paroxysmal atrial fibrillation, a known common occurrence after cardiac surgery and expected due to his known preoperative atrial fibrillation. The patient was seen and examined this morning sitting up in the recliner in the ICU in no acute distress. He denies any pain or shortness of breath. Currently in sinus rhythm with first degree AV block. Remains on low-dose IV Primacor. Received IV lasix again yesterday, increased to every 8 hours by nephrology. Patient continues to show improvement daily. He has ambulated in the hallway with PT/OT, tolerated well. Repeat limited echo was read as improvement in LV function with EF now 50-55%. No plans for pacemaker as patient has not required any pacing for greater than 24 hours, no plans for ICD as patient's LV function improvement does not warrant ICD placement. Objective - Vital Signs Vital signs: Vital Signs Temp 98 F 07/31/21 04:00 Pulse 64 07/31/21 07:00 Resp 32 H 07/31/21 07:00 BP 121/67 07/31/21 07:00 Pulse Ox 85 L 07/31/21 07:00 Intake & Output 07/30/21 07/31/21 07/31/21 18:59 06:59 18:59 Intake Total 886.502 220 76.557 Output Total 3250 1275 0 Balance -2363.498 -1055 76.557 Weight 99.7 kg Intake: IV 320 220 20 PRESSURE BAG 0.9 Sodium 280 Chloride Sodium Chloride 0.9% 1, 40 220 20 000 ml @ 20 mls/hr IV . Q24H [facility] Rx#:[id number] Intake, IV Titration 206.502 56.557 Amount Calcium Gluconate 2 gm In 100 Sodium Chloride 0.9% 100 ml @ 100 mls/hr IVPB ONCE ONE Rx#:[id number] Milrinone-D5w Pmx 20 mg 6.502 56.557 In Dextrose/Water 1 100ml .bag @ 0.1 MCG/KG/MIN 3. 072 mls/hr IV .Q24H [facility] Rx#:[id number] Sodium Ferric Gluconat- 100 Sucrose 125 mg In Sodium Chloride 0.9% 100 ml @ 100 mls/hr IVPB DAILY [facility] Rx#:[id number] Oral 360 Output: Urine 3250 1275 0 Other: Voiding Method Urinal # Voids 0 0 0 ABP, PAP, CO, CI - Last Documented Arterial Blood Pressure 98/36 Pulmonary Artery Pressure 31/16 Cardiac Output 4.6 Cardiac Index 2.2 - Exam CONSTITUTIONAL: Appears comfortable, cooperative, no acute distress RESPIRATORY: Lungs sounds diminished bilaterally. Respirations even, nonlabored. Currently on room air with oxygen saturation 92%. Able to achieve 1000 mL on incentive spirometry. Strong dry cough. CARDIOVASCULAR: S1, S2 present. Regular rate, rhythm, sinus rhythm with long first degree AV block on telemetry. Sternum stable. Palpable peripheral pulses bilaterally. Generalized edema present but continues to decrease every day. No calf pain or tenderness noted. Heart hugger in place with patient demonstrating appropriate use. Antiembolism stockings, SCDs present. GASTROINTESTINAL: Abdomen soft, nontender, nondistended. Active bowel sounds present 4 quadrants. Tolerating diet. Positive bowel movement 07/30/21 GENITOURINARY: Continues to void, 3418 mL in the last 24 hours INTEGUMENTARY: Skin is warm and dry with evidence of good perfusion. Anterior chest incision well approximated and covered with dry intact dressing. Bilateral EVH sites well approximated without redness or drainage. NEUROLOGIC: Cranial nerves II through XII intact MUSKULOSKELETAL: Able to move all extremities, strength equal bilaterally, gait normal PSYCHIATRIC: Alert and oriented to person place and time, appropriate affect, intact judgment and insight INVASIVE LINES AND TUBES: A/V epicardial pacemaker wires present, connected to generator, AAI mode with backup rate 50 bpm. - Allied health notes Allied health notes reviewed: nursing - Labs CBC & Chem 7: 07/30/21 03:43 07/30/21 03:43 Labs: Abnormal Lab Results - Last 24 Hours (Table) 07/30/21 07/30/21 07/30/21 Range/Units 11:19 16:50 20:29 POC Glucose (mg/dL) 211 H 156 H 228 H (75-99) mg/dL 07/31/21 07/31/21 Range/Units 02:39 06:52 POC Glucose (mg/dL) 117 H 164 H (75-99) mg/dL - Imaging and Cardiology Chest x-ray: image reviewed Assessment and Plan Assessment: 1. Triple-vessel coronary artery disease, non-STEMI and admission, status post three-vessel CABG 2. Acute systolic heart failure present on admission, EF 30-35% 3. First-degree heart block, paroxysmal episodes of second-degree and complete heart block this admission 4. Acute kidney injury 5. Elevated CRP, pro-calcitonin on admission 6. Aortic stenosis, status post bioprosthetic aortic valve replacement 7. History of hypertension 8. History of hyperlipidemia, treated, cholesterol 129, LDL 71 9. Knl-frzberu-abroaqyrq diabetes, hemoglobin A1c 8.6% 10. Never smoker, preoperative FEV1 72% of predicted 11. Family history of heart disease 12. Remains unvaccinated against covid 13. Preoperative as well as postoperative paroxysmal atrial fibrillation, status post bilateral pulmonary vein isolation and left atrial appendage ligation 14. Postoperative acute blood loss anemia, expected 15. Hypotension, multifactorial 16. Transaminitis, trending downward 17. Thrombocytopenia, expected, HIT negative Plan: 1. Continue low-dose aspirin, plavix, low dose beta jose raul 2. Will restart his statin 3. Encourage incentive spirometry use 10 times every hour while awake. Bronchodilators per pulmonology/critical care medicine. 4. Increase activity, ambulate as tolerated. PT/OT/cardiac rehab following. 5. Will monitor daily labs and chest x-rays. Electrolyte replacement per protocol. Avoid nephrotoxic agents. Lasix ordered TID by nephrology 6. GI/DVT prophylaxis. 7. Insulin management per primary care service. The patient needs tight gl ucose control to prevent sternal wound infection and promote healing. 8. Discontinue Primacor 9. Pain control with current medication regimen. 10. Strict accurate intake and output. 11. Ground epicardial pacemaker wires 12. Continue Midodrine 10 mg by mouth 3 times a day. 13. Continue Amiodarone, decreased to 200 mg BID by cardiology. No anticoagulation until after epicardial pacemaker wires removed 14. Leave in ICU for 1 more day 15. More recommendations to follow based on patient's clinical course. Time with Patient: Greater than 30
--- NOTE | 2021-07-31 08:30 | XR ---
EXAMINATION TYPE: XR chest 1V portable DATE OF EXAM: 07/31/2021 COMPARISON: 07/30/2021 HISTORY: Post cardiac surgery TECHNIQUE: Single frontal view of the chest is obtained. FINDINGS: Patient is post median sternotomy and left atrial appendage clip placement, cardiac valve replacement. Heart is again enlarged. No evident pneumothorax. Bibasilar increased attenuation is pre sent, hemidiaphragms are obscured. Interstitium may be slightly increased. There are overlying artifa cts. IMPRESSION: Findings are similar, there is cardiomegaly, possible basilar effusions and associated a telectasis, difficult to exclude pneumonia, additional follow-up recommended
[2021-07-31] MEDS: ATORVASTATIN 40 MG TAB PO SCH (10:37)
[2021-07-31] MEDS: POTASSIUM CHLORIDE ER 20 MEQ TAB.ER PO SCH (10:37)
[2021-07-31 10:51] LABS: Anisocytosis Slight; HCT 32.9 % (39.0-53.0); HGB 10.1 gm/dL (13.0-17.5); Hypochromasia Slight; MCH 31.5 pg (25.0-35.0); MCHC 30.8 g/dL (31.0-37.0); MCV 102.4 fL (80.0-100.0); Macrocytosis Moderate; Mean Platelet Volume 8.1; Platelet Count 190 k/uL (150-450); RBC 3.22 m/uL (4.30-5.90); RDW 17.3 % (11.5-15.5); WBC 5.7 k/uL (3.8-10.6)
[2021-07-31 10:55] LABS: Albumin 2.9 g/dL (3.5-5.0); Calcium 8.3 mg/dL (8.4-10.2); Magnesium 1.8 mg/dL (1.6-2.3); Potassium 4.1 mmol/L (3.5-5.1); Total Bilirubin 1.3 mg/dL (0.2-1.3); Total Protein 5.5 g/dL (6.3-8.2)
[2021-07-31 11:16] LABS: Glucose,Whole Blood 202 mg/dL (75-99)
[2021-07-31 11:53] LABS: Glucose,Whole Blood 211 mg/dL (75-99)
[2021-07-31] MEDS: MAGNESIUM SULFATE-D5W PMX 1 GM in DEXTROSE/WATER 1 100ML.BAG IVPB SCH ×2 (11:57→13:12)
--- NOTE | 2021-07-31 13:35 | P.PN ---
Subjective Progress Note Date: 07/31/21 Follow-up for acute kidney injury and volume overload. Sitting in the chair feels better. Urine output of 4.5 L in the last 24 hours Objective - Vital Signs Vital signs: Vital Signs Temp 98.4 F 07/31/21 12:00 Pulse 65 07/31/21 12:00 Resp 16 07/31/21 12:00 BP 93/64 07/31/21 12:00 Pulse Ox 97 07/31/21 12:00 Intake & Output 07/30/21 07/31/21 07/31/21 18:59 06:59 18:59 Intake Total 886.502 220 236.557 Output Total 3250 1275 400 Balance -2363.498 -1055 -163.443 Weight 99.7 kg Intake: IV 320 220 180 Magnesium Sulfate-D5w Pmx 100 1 gm In Dextrose/Water 1 100ml.bag @ 100 mls/hr IVPB Q1H [facility] Rx#: [id number] PRESSURE BAG 0.9 Sodium 280 Chloride Sodium Chloride 0.9% 1, 40 220 80 000 ml @ 20 mls/hr IV . Q24H [facility] Rx#:[id number] Intake, IV Titration 206.502 56.557 Amount Calcium Gluconate 2 gm In 100 Sodium Chloride 0.9% 100 ml @ 100 mls/hr IVPB ONCE ONE Rx#:[id number] Milrinone-D5w Pmx 20 mg 6.502 56.557 In Dextrose/Water 1 100ml .bag @ 0.1 MCG/KG/MIN 3. 072 mls/hr IV .Q24H [facility] Rx#:[id number] Sodium Ferric Gluconat- 100 Sucrose 125 mg In Sodium Chloride 0.9% 100 ml @ 100 mls/hr IVPB DAILY [facility] Rx#:[id number] Oral 360 Output: Urine 3250 1275 400 Other: Voiding Method Urinal Urinal # Voids 0 0 1 ABP, PAP, CO, CI - Last Documented Arterial Blood Pressure 98/36 Pulmonary Artery Pressure 31/16 Cardiac Output 4.6 Cardiac Index 2.2 - Exam No acute distress S1-S2 heard Decreased breath sounds Edema. - Labs CBC & Chem 7: 07/31/21 09:14 07/31/21 09:14 Labs: Abnormal Lab Results - Last 24 Hours (Table) 07/30/21 07/30/2122 Range/Units 16:50 20:29 02:39 RBC (4.30-5.90) m/uL Hgb (13.0-17.5) gm/dL Hct (39.0-53.0) % MCV (80.0-100.0) fL MCHC (31.0-37.0) g/dL RDW (11.5-15.5) % Sodium (137-145) mmol/L BUN (9-20) mg/dL Creatinine (0.66-1.25) mg/dL Glucose (74-99) mg/dL POC Glucose (mg/dL) 156 H 228 H 117 H (75-99) mg/dL Calcium (8.4-10.2) mg/dL ALT (4-49) U/L Total Protein (6.3-8.2) g/dL Albumin (3.5-5.0) g/dL 07/31/21 07/31/21 07/31/21 Range/Units 06:52 09:14 09:14 RBC 3.22 L (4.30-5.90) m/uL Hgb 10.1 L (13.0-17.5) gm/dL Hct 32.9 L (39.0-53.0) % MCV 102.4 H (80.0-100.0) fL MCHC 30.8 L (31.0-37.0) g/dL RDW 17.3 H (11.5-15.5) % Sodium 132 L (137-145) mmol/L BUN 25 H (9-20) mg/dL Creatinine 1.45 H (0.66-1.25) mg/dL Glucose 176 H (74-99) mg/dL POC Glucose (mg/dL) 164 H (75-99) mg/dL Calcium 8.3 L (8.4-10.2) mg/dL ALT 79 H (4-49) U/L Total Protein 5.5 L (6.3-8.2) g/dL Albumin 2.9 L (3.5-5.0) g/dL 07/31/21 07/31/21 Range/Units 11:15 11:51 RBC (4.30-5.90) m/uL Hgb (13.0-17.5) gm/dL Hct (39.0-53.0) % MCV (80.0-100.0) fL MCHC (31.0-37.0) g/dL RDW (11.5-15.5) % Sodium (137-145) mmol/L BUN (9-20) mg/dL Creatinine (0.66-1.25) mg/dL Glucose (74-99) mg/dL POC Glucose (mg/dL) 202 H 211 H (75-99) mg/dL Calcium (8.4-10.2) mg/dL ALT (4-49) U/L Total Protein (6.3-8.2) g/dL Albumin (3.5-5.0) g/dL Assessment and Plan Assessment: #1 nonoliguric acute kidney injury secondary to hemodynamic ATN status post CABG. creeping creatinine secondary to over diuresis. #2 chronic kidney disease stage III A secondary to nephrosclerosis with a baseline creatinine of 1.0-1.2 MG per DL. #3 atrial fibrillation with RVR. #4 hypervolemic hyponatremia. #5 CAD status post CABG #6 atrial fibrillation #7 volume overload Plan: #1 continue with Lasix, decrease to 20 mg IV twice a day with the goal net negative off 2.0-2.5 L. #2 anticipate renal function to improve. Slight creep secondary to over diuresis #3 avoid nephrotoxic agents
--- NOTE | 2021-07-31 14:10 | P.PN ---
Subjective Progress Note Date: 07/31/21 This is a pleasant 75 years old male with past medical history of Diabetes Mellitus, Hyperlipidemia, Hypertension Patient presents because of the progressive exertional dyspnea and decreased leg swelling over one month, bilateral leg swelling and bilateral neck pain. However yesterday he started getting orthopnea, he could not lay down and his asked him to come to emergency room. Also patient is complaining of from dry cough and sore throat, mouth is making some clear phlegm. He denies chest pain or abdominal pain. No dizziness. He was complaining of from little diarrhea, he felt almost going to vomit this morning but did not. No urinary complaints. No weakness or numbness He denies smoking, alcohol or illicit drugs Vitals are stable and he is saturating 96% on room air. Labs were reviewed including unremarkable CBC except for mild lymphopenia at 0.7, INR is 1.0. Sodium is 124, carbon dioxide 17, creatinine 1.1, glucose 220 Liver enzymes not elevated. Troponin is high as 0.418, C-reactive protein 2.0. ProBNP is 4880 Coronavirus not detected. EKG showing normal sinus rhythm at 85 with first-degree AV block and incomplete right bundle branch block, no significant ST-T changes. Chest x-ray: Interstitial pulmonary edema with increased cardiomegaly In the emergency room patient was started on IV Lasix 40 mg every 8 hours and cardiology team were consulted. 07/17/2021 Patient breathing is better, he does not complain from jaw pain or neck pain anymore, he is breathing easier, less leg edema. Patient is continued on IV Lasix 40 mg twice daily, also he is on heparin drip His sodium is improved today to 1.7 however his creatinine went up to 1.4. Because of his worsening kidney function we hold his metformin and switch him to Amaryl 2 mg daily, patient informed of his uncontrolled diabetes as his hemoglobin A1c is a 42.6%. Echocardiogram showed ejection fraction of 30-35% with moderate mitral regurgitation, 2018 8 was 55-60% Patient possibly will go for cardiac cath tomorrow 07/18/2021 Patient feels better, his breathing is easier. He has no more jaw pain, leg swelling is significantly improved he has crepitationandonlyminimal. He has some wheezing during examination most likely secondary to his CHF, patient is nonsmoker with no history of COPD. He is hemodynamically stable, he is on room air. Creatinine is trending up 1.1, 1.4, and 1.58 today. However sodium significantly improved up to 133. His Lasix was switched to 40 mg by mouth daily. His glucose is controlled 136 and 142 after he was started on Amaryl today we will keep monitoring, metformin was held for his acute kidney injury. He has slight ejection fraction of 30-35% with moderate MR and he needs cardiac cath however it is on hold now to further evaluation for his kidney injury, most likely secondary to diuresis, nephrology team was consulted, renal ultrasound is pending. 81 mg 07/19/2021 Patient breathing is improved close to normal however he has some residual basal crepitation which is mild. Very minimal leg swelling. No much exertional dyspnea. And his diuretics are switched to oral dose again Lasix 40 mg daily His creatinine improved 1.3 from 1.8 yesterday. Glucose less than 150. After switching his metformin and to Amaryl 2 mg daily. Hemoglobin A1c is 8.6% Plan for him to go for cardiac cath today. Renal ultrasound showing no hydronephrosis. Tenderness on home dose of aspirin 81 mg, oral Lasix and metoprolol 07/20/2021 Today with minimal dyspnea however he still have bilateral basal crepitation and leg edema, he is saturating 95-96% on 2 L oxygen via nasal cannula. His creatinine slightly up to 1.5. Glucose controlled. Renal ultrasound showing no hydronephrosis. Cardiac cath yesterday showing severe triple coronary artery disease, referred to thoracic surgery been consulted for possible CABG 07/21/2021 Patient currently sitting in bed looks comfortable, no chest pain, no significant dyspnea. Using his incentive spirometry frequently. He is cu rrently kept on heparin drip. Minimal leg swelling, mild basal crepitation. He is hemodynamically stable. He is saturating 97% on 2 L oxygen via nasal cannula. His sodium 132, creatinine improved to 1.28, glucose controlled while he is on Amaryl 2 mg. His metformin, metoprolol and lisinopril are on hold for hypertension acute kidney injury. Patient currently has been worked up for possible cardiac bypass surgery with cardiovascular surgery team on the case. 07/22/2021 Patient is going for cardiac bypass surgery today. This with no chest pain or dyspnea. Hemodynamically stable. Glucose controlled however it might be needed to be started on insulin drip. Most likely patient will go to the intensive care unit post procedure. We will follow up with him 07/23/2021 Patient status post multiple vessel coronary artery bypass grafting for severe triple coronary artery disease and aortic valve replacement for severe aortic stenosis and today is postop day #1. Patient was sitting in chair, awake but very drowsy however he is able to follow commands with minimal movement. Because of his generalized weakness. Patient has hypotension that required pressors in the form of vasodepressor at 0.03 and levophed at 0.14. Also he has some low-grade temperature at 100.9. He is tachypneic at 29, oxygen saturation and requirements is at 4 L/m. He developed postoperative hyperkalemia at 6.3, corrected with 10 units of insulin and D50 ample down to 5.1. He has drop of hemoglobin down to 7.3 and he is getting 1 unit of blood transfusion. Platelet count 108. Sodium is 132, creatinine 1.6 which is close to baseline as he has chronic kidney disease. Never enzymes significantly elevated with AST 568 and ALT 343. Chest x-ray showing no mild pulmonary vascular congestion and receives one-time dose of IV Lasix 20 mg Also he is on insulin drip while metformin and Amaryl are on hold. Blood pressure medication of metoprolol and lisinopril were held prior to surgery because of hypotension and acute kidney injury. Patient currently kept on home dose of aspirin 81 mg and added Mavik 75 mg 07/24/2021 Patient sitting in chair, his mentation improving today and he follows commands with no difficulty moving her arms or legs but he looks very tired and lethargic. Blood pressure is 93/74. Heart rate is around 70. He had no fever today and his respiratory rate is 24-28 and his oxygen saturation is acceptable and 2 L/m of oxygen. His sodium is 140, creatinine stable at 1.6 but liver enzymes trending up to 1133 and AST and ALT is still up about 497. Glucose controlled on insulin drip. He received one unit of blood transfusion in hemoglobin went up 7.38 to 9.1. Platelets 85K. Lipase is normal at 7.3. Chest x-ray showing postsurgical changes and chest tubes are unchanged in pos ition while there is decrease in vascular congestion. His pO2 was one and he is currently on BiPAP with FiO2 of 40%. He remains on amiodarone drip which is added for new onset A. fib. Also his continued on aspirin 81 mg which is home dose and added Plavix in the hospital. 07/25/2021 Patient remains monitored closely in the ICU under critical condition, he is very lethargic but awake and follow commands. His blood pressure is 108/59 and 80/40. That needs pressors. Heart rate is 94. Labs reviewed showing AST is 571 which is improving and ALT fourth 97. Glucose is controlled but around 200. Bilirubin is elevated at 2.1. Her hemoglobin is stable at 10.2. Platelet to 62K and white BC is 10 K. Chest x-ray showing no change with cardiomegaly and bibasilar infiltrates. Ejection fraction is still low at 25-30%. Patient remains on many risks are slightly renal. He is on aspirin and Plavix. And antihypertensive medications are on hold.. 07/26/2021 Patient looks less distressed today sitting in chair most of the time, minimal chest pain. Chest tubes in a Place. His blood pressure is 160/50, heart rate 94, sodium 134, creatinine 1.6. ast 264 and alt 385. bilirubin improved 2.1 down to 1.5. glucose is controlled. hemoglobin 9.6, platelet count 76. chest x-ray showing cardiomegaly with a stable chest tube on the left side and left lower lobe infiltrate stable as well. patient today is a started on fondaparinux, also he is on aspirin and plavix, he needed amiodarone. 07/27/2021 Patient is seen and evaluated and follow-up continues to be closely monitored in the ICU. We are following closely with cardiothoracic surgery and multiple medical consultations including nephrology, pulmonary, cardiology are following closely. Patient continues with chest tubes and is currently sitting up in the chair and working with physical therapy. Chest x-ray today shows postoperative findings with probable basilar atelectasis and possible associated effusion. Per nursing staff and patient patient has had multiple episodes of loose stool and will order C. diff. If negative will consider Imodium and monitor for improvement. Blood sugars being closely monitored patient continues on sliding scale. 07/28/2021 Patient is seen in follow-up today continues to be in the ICU being closely monitored with multiple medical consultations following. Patient had chest tubes and catheter from the neck removed today and is currently sitting up in the chair on room air. Patient is weak and will require physical therapy. C. diff testing was negative and patient continues with some loose stool and will add Imodium. Chest x-ray today shows persistent cardiomegaly with left greater than right bibasilar infiltrates and/or atelectasis and small bilateral pleural effusion are redemonstrated with no significant change. Patient does have incentive spirometer at the bedside and encourage the patient to continue using at least 10 times every hour while awake. 07/29/2021 Patient is seen today and continues to be in the ICU being closely monitored and we are following with cardiothoracic surgery as patient is recently status post CABG. Discussion is possible AICD placement in the next 2-3 days prior to discharge if needed although not currently requiring pacer support. 2d echo ordered and pending. Patient continues with some lower extremity edema and has received a dose of Lasix today. Patient with compression stockings and per patient legs are extremely tender to the touch and taut. Encourage the patient to elevate lower extremities as well at rest. Chest xray today shows Persistent cardiomegaly with left greater than right bibasilar infiltrates and or atelectasis and small bilateral pleural effusions are again remonstrated with no significant change from previous day and no pneumothorax noted from chest tube removal one day ago. Labs: WBC is 5.1, hemoglobin is 9.7, platelets are 113, sodium is 133, potassium 3.8, BUN 33, creatinine 1.30, calcium 8.1, magnesium 1.9 07/30/2020 Patient evaluated today in the ICU sitting up in the chair. he continues on primacor gtt, with pacer wire in place. Plan is for possible pacemaker on sunday. Patient is alert and oriented, appropriate. He is using his IS with a volume of [id number] without difficulty. He is able to take deep breaths with minimal to no pain at incision site. He does have a congested cough intermittent with no sputum production. Tolerating diet. Otherwise no acute events overnight and his only complaint is a sore bottom due to sitting. He has been ambulating. Mild lower extremity edema, spinning mule tender to touch. Repeat chest xray today shows Marked cardiomegaly with bibasilar airspace opacities left greater than right may represent atelectasis and or developing airspace disease. Labs reviewed: WBC 5.1, hgb 10.4, platelets are 144, sodium 133, potassium 3.6, BUN 29, creatinine 1.14, calcium 7.9, magnesium 2.1 ALT 110, protein 4.9. Blood sugars ranging between 85 and 211. 07/31/2021 Patient evaluated in the ICU sitting up in the chair today. He has not had BM for 2 days. His lower extremity edema is slightly improving, less tender to touch. He has walked in the hallways today. He denies chest pain, cough, or shortness of breath. Lungs seems tighter than yesterday he is using IS frequently. Pacer wires are now grounded and patient will not being going for a permanent pacemaker tomorrow. Patient is now on IV lasix 20 mg q12 hour. Repeat chest xray today shows cardiomegaly, possible basilar effusions and associated atelectasis, difficult to exclude pneumonia. 4.5 L of urine output in the last 24 hours. Labs today show white count 5.7, hemoglobin 10.1, platelet count 190, sodium 132, BUN 25, creatinine 1.45 which is increased from yesterday. Mag 1.8, AST 29, ALT 79, total protein 5.5. Review of systems: Constitutional: No reports of fatigue, fever, or chills Cardiovascular: No reports of chest pain or palpitations Respiratory: No reports of shortness of breath or cough GI: No reports of nausea, vomiting, improvement in diarrhea no BM for 2 days : No reports of dysuria or retention Neurovascular: reports of generalized weakness, reports bilateral lower extre mity edema, states improving and less painful to touch All medications have been reviewed Physical exam: GENERAL: The patient is alert and oriented x3, not in any acute distress. Well developed, well nourished. HEENT: Pupils are round and equally reacting to light. EOMI. No scleral icterus. No conjunctival pallor. Normocephalic, atraumatic. No pharyngeal erythema. No thyromegaly. CARDIOVASCULAR: S1 and S2 present. No murmurs, rubs, or gallops. PULMONARY: Chest is clear to auscultation, no wheezing, there is diminished aeration bilateral bases ABDOMEN: Soft, nontender, nondistended, normoactive bowel sounds. No palpable organomegaly. MUSCULOSKELETAL: No joint swelling or deformity. EXTREMITIES: No cyanosis, clubbing, . Bilateral generalized leg edema, improving NEUROLOGICAL: Gross neurological examination did not reveal any focal deficits. SKIN: No rashes. No petechiae Assessment: severe triple coronary artery disease, status post multiple vessel CABG Severe aortic stenosis status post aortic valve replacement Acute systolic heart failure, ischemic cardiomyopathy is suspected with ejection fraction of 30-35%, now with an EF of 50-55% s/p CABG. First degree heart block with episodes of second to complete heart block, no pl NSTEMI Acute kidney injury, suspected secondary to diuresis. And also possibly due to his chronic kidney disease stage III, improving Hypotension requiring pressors postoperatively, patient is off pressors, improved Postoperative anemia requiring 1 unit of blood transfusion, hemoglobin has stabilized Sore throat, improved, coronavirus is negative Hyponatremia Diabetes mellitus, With hyperglycemia upon admission . Hemoglobin A1c is 8.6% Paroxysmal atrial fibrillation preoperative and postoperative, patient is on an oral amiodarone taper managed by primary Hypertension Hyperlipidemia GI prophylaxis DVT prophylaxis full code Plan: This is a pleasant 75 years old male who presented with possible acute CHF and high troponin. N-stemi and underwent CABG on 07/22. Continue to monitor blood pressure, off pressor support. 2d echo ordered and EF is improved at 50-55%, patient continues with pacer wires that are now grounded and no plans for pacer tomorrow, Continues in the ICU. Continue with aspirin and Plavix Recommend Accu-Cheks before meals at bedtime and monitoring glucose while keeping the patient on insulin sliding scale Cardiology, pulmonary, nephrology following and cardiology Monitor hemoglobin, hemoglobin is stable at 10.4 Patient continues with loose stool although improving and has imodium as needed. Cdiff testing was negative. Patient continued with bilateral lower extremity edema and was given IV Lasix yesterday. Lasix dosing was decreased today. Encouraged the patient to continue with compression stockings, increasing activity as tolerated, and elevating lower extremities while at rest. Will continue to follow along closely with CT surgery during hospitalization Prognosis is guarded Objective - Vital Signs Vital signs: Vital Signs Temp 98.4 F 07/31/21 12:00 Pulse 65 07/31/21 12:00 Resp 20 07/31/21 13:00 BP 105/62 07/31/21 13:00 Pulse Ox 98 07/31/21 13:00 Intake & Output 07/30/21 07/31/21 07/31/21 18:59 06:59 18:59 Intake Total 886.502 220 236.557 Output Total 3250 1275 750 Balance -2363.498 -1055 -513.443 Weight 99.7 kg Intake: IV 320 220 180 Magnesium Sulfate-D5w Pmx 100 1 gm In Dextrose/Water 1 100ml.bag @ 100 mls/hr IVPB Q1H [facility] Rx#: [id number] PRESSURE BAG 0.9 Sodium 280 Chloride Sodium Chloride 0.9% 1, 40 220 80 000 ml @ 20 mls/hr IV . Q24H [facility] Rx#:[id number] Intake, IV Titration 206.502 56.557 Amount Calcium Gluconate 2 gm In 100 Sodium Chloride 0.9% 100 ml @ 100 mls/hr IVPB ONCE ONE Rx#:[id number] Milrinone-D5w Pmx 20 mg 6.502 56.557 In Dextrose/Water 1 100ml .bag @ 0.1 MCG/KG/MIN 3. 072 mls/hr IV .Q24H [facility] Rx#:[id number] Sodium Ferric Gluconat- 100 Sucrose 125 mg In Sodium Chloride 0.9% 100 ml @ 100 mls/hr IVPB DAILY [facility] Rx#:[id number] Oral 360 Output: Urine 3250 1275 750 Other: Voiding Method Urinal Urinal # Voids 0 0 1 ABP, PAP, CO, CI - Last Documented Arterial Blood Pressure 98/36 Pulmonary Artery Pressure 31/16 Cardiac Output 4.6 Cardiac Index 2.2 - Labs CBC & Chem 7: 07/31/21 09:14 07/31/21 09:14 Labs: Abnormal Lab Results - Last 24 Hours (Table) 07/30/21 07/30/21 07/31/21 Range/Units 16:50 20:29 02:39 RBC (4.30-5.90) m/uL Hgb (13.0-17.5) gm/dL Hct (39.0-53.0) % MCV (80.0-100.0) fL MCHC (31.0-37.0) g/dL RDW (11.5-15.5) % Sodium (137-145) mmol/L BUN (9-20) mg/dL Creatinine (0.66-1.25) mg/dL Glucose (74-99) mg/dL POC Glucose (mg/dL) 156 H 228 H 117 H (75-99) mg/dL Calcium (8.4-10.2) mg/dL ALT (4-49) U/L Total Protein (6.3-8.2) g/dL Albumin (3.5-5.0) g/dL 07/31/21 07/31/21 07/31/21 Range/Units 06:52 09:14 09:14 RBC 3.22 L (4.30-5.90) m/uL Hgb 10.1 L (13.0-17.5) gm/dL Hct 32.9 L (39.0-53.0) % MCV 102.4 H (80.0-100.0) fL MCHC 30.8 L (31.0-37.0) g/dL RDW 17.3 H (11.5-15.5) % Sodium 132 L (137-145) mmol/L BUN 25 H (9-20) mg/dL Creatinine 1.45 H (0.66-1.25) mg/dL Glucose 176 H (74-99) mg/dL POC Glucose (mg/dL) 164 H (75-99) mg/dL Calcium 8.3 L (8.4-10.2) mg/dL ALT 79 H (4-49) U/L Total Protein 5.5 L (6.3-8.2) g/dL Albumin 2.9 L (3.5-5.0) g/dL 07/31/21 07/31/21 Range/Units 11:15 11:51 RBC (4.30-5.90) m/uL Hgb (13.0-17.5) gm/dL Hct (39.0-53.0) % MCV (80.0-100.0) fL MCHC (31.0-37.0) g/dL RDW (11.5-15.5) % Sodium (137-145) mmol/L BUN (9-20) mg/dL Creatinine (0.66-1.25) mg/dL Glucose (74-99) mg/dL POC Glucose (mg/dL) 202 H 211 H (75-99) mg/dL Calcium (8.4-10.2) mg/dL ALT (4-49) U/L Total Protein (6.3-8.2) g/dL Albumin (3.5-5.0) g/dL
--- NOTE | 2021-07-31 14:21 | P.PN ---
Progress Note - Text Patient is doing well ambulating with help remains in sinus rhythm with first- degree AV block stable hemodynamically Denies chest pain or difficulty in breathing Medications include aspirin Plavix amiodarone 200 twice a day Lasix 20 mg twice a day metoprolol 12.5 twice a day and potassium On exam comfortable at rest vital signs are stable chest exam reveals diminished air entry at the bases with without rhonchi or crackles heart exam reveals first and second heart sounds no gallop examination extremities reveals mild edema bilaterally Labs show that the hemoglobin is 10.1 platelet count is 190 potassium is 4.1 BUN is 25 creatinine is 1.4 Assessment and plan: Coronary artery disease status post CABG Aortic stenosis status post aortic valve replacement Status post pulmonary vein isolation and occlusion of the left atrial appendage History of bradycardia Patient remains in sinus rhythm tolerating both beta blockers and amiodarone has not had any episodes of high-grade AV block over the last 4 days No clear indication for a permanent pacemaker Repeat echo shows that the LV function is more than 35% hence no clear indica tion for AICD
--- NOTE | 2021-07-31 14:24 | P.PN ---
Subjective Progress Note Date: 07/31/21 Principal diagnosis: Status post triple-vessel CABG postoperative day #9 POD #5 triple-vessel coronary artery bypass grafting using the left internal mammary artery to the left anterior descending coronary artery, reverse greater saphenous vein graft from the aorta to the second obtuse marginal coronary artery, and reverse greater saphenous vein graft from the aorta to the third obtuse marginal coronary artery. Aortic valve replacement using a 23 mm pericardial bioprosthetic Inspiris. Bilateral pulmonary vein isolation using bipolar radiofrequency energy from Atricure, exclusion of the left atrial appendage using a 40 mm Atriclip, intraoperative transesophageal echocardiogram, epi-aortic scanning and graft flow measurements using the Medi-Stim system. Endoscopic harvesting of left greater saphenous vein from the ankle to the groin, and right greater saphenous vein from just below the knee to the groin. Patient was reevaluated today on 07/27/2020, patient is still in the ICU, he is on 2 L nasal cannula, still requiring milrinone at 3 mcg/kg/m, he is off norepinephrine, patient is off vasopressin, continues to have a relatively low cardiac output of 3.4 and cardiac index of 1.6. His pulmonary artery pressure is 27/12 CVP is 13. Incentive spirometry achieving about 7 50 mL. Chest x-ray does not show any evidence of congestive heart failure. Clinically the patient seems to be doing fairly well, continues to have a left sided chest tube in place. WBC count is 7 hemoglobin is 9.8. ABG this morning showed a pO2 of 96 pCO2 33 pH of 7.45. Basic metabolic profile is normal BUN is 43 creatinine is down to 1.28 from 1.60 yesterday. Patient continues to have atrial pacing at 86 bpm this morning, his underlying rhythm is sinus rhythm with first-degree AV block. Heart rate in the 70s. Intermittently had short periods of atrial fibrillation. Reevaluated today on 07/30/2021, patient remains in the ICU, still on milrinone at 0.1 mcg/kg/m. Patient does not seem to be in any distress, chest x-ray is showing small pleural effusions and atelectasis. Patient remains on room air. Denies any shortness of breath or pain. He is in sinus rhythm with first-degree AV block. Received Lasix early this morning. And he seems to be responding well to diuretics. No major issues over the last 24 hours, all his chest tubes have been removed. And chest x-ray was reviewed today. Reevaluated today on 07/31/2021, patient remains in the ICU, he is off Primacor. Chest x-ray is showing small bilateral pleural effusions, received Lasix earlier today. Agent remains on room air, denies any shortness of breath, no cough, no wheezing. Patient is achieving about 1000 mL with his incentive spirometry. Repeat echo showed improvement in his LV function. No plans for pacemaker placement on this patient. No plans for ICD placement. Overall the patient is better although his chest x-ray is showing small bilateral pleural effusions but the patient is relatively asymptomatic, and he has no pulmonary symptoms. Objective - Vital Signs Vital signs: Vital Signs Temp 98.4 F 07/31/21 12:00 Pulse 65 07/31/21 12:00 Resp 20 07/31/21 13:00 BP 105/62 07/31/21 13:00 Pulse Ox 98 07/31/21 13:00 Intake & Output 07/30/21 07/31/21 07/31/21 18:59 06:59 18:59 Intake Total 886.502 220 236.557 Output Total 3250 1275 750 Balance -2363.498 -1055 -513.443 Weight 99.7 kg Intake: IV 320 220 180 Magnesium Sulfate-D5w Pmx 100 1 gm In Dextrose/Water 1 100ml.bag @ 100 mls/hr IVPB Q1H [facility] Rx#: [id number] PRESSURE BAG 0.9 Sodium 280 Chloride Sodium Chloride 0.9% 1, 40 220 80 000 ml @ 20 mls/hr IV . Q24H [facility] Rx#:[id number] Intake, IV Titration 206.502 56.557 Amount Calcium Gluconate 2 gm In 100 Sodium Chloride 0.9% 100 ml @ 100 mls/hr IVPB ONCE ONE Rx#:[id number] Milrinone-D5w Pmx 20 mg 6.502 56.557 In Dextrose/Water 1 100ml .bag @ 0.1 MCG/KG/MIN 3. 072 mls/hr IV .Q24H [facility] Rx#:[id number] Sodium Ferric Gluconat- 100 Sucrose 125 mg In Sodium Chloride 0.9% 100 ml @ 100 mls/hr IVPB DAILY [facility] Rx#:[id number] Oral 360 Output: Urine 3250 1275 750 Other: Voiding Method Urinal Urinal # Voids 0 0 1 ABP, PAP, CO, CI - Last Documented Arterial Blood Pressure 98/36 Pulmonary Artery Pressure 31/16 Cardiac Output 4.6 Cardiac Index 2.2 - Exam CONSTITUTIONAL: Revealed 75-year-old white male on room air, in no distress. RESPIRATORY: Diminished breath sounds at the bases, no crackles or rhonchi or wheezes. CARDIOVASCULAR: Distant S1 and S2, no S3 gallop. GASTROINTESTINAL: Soft nontender no megaly no rebound. INTEGUMENTARY: No rashes.. Anterior chest incision covered with dry intact dressing. NEUROLOGIC: Alert and oriented 3 no gross focal deficits. MUSKULOSKELETAL: No deformities noted limitation in range of motion. PSYCHIATRIC: Normal mood affect and normal mental status examination. - Labs CBC & Chem 7: 07/31/21 09:14 07/31/21 09:14 Labs: Abnormal Lab Results - Last 24 Hours (Table) 07/30/21 07/30/21 07/31/21 Range/Units 16:50 20:29 02:39 RBC (4.30-5.90) m/uL Hgb (13.0-17.5) gm/dL Hct (39.0-53.0) % MCV (80.0-100.0) fL MCHC (31.0-37.0) g/dL RDW (11.5-15.5) % Sodium (137-145) mmol/L BUN (9-20) mg/dL Creatinine (0.66-1.25) mg/dL Glucose (74-99) mg/dL POC Glucose (mg/dL) 156 H 228 H 117 H (75-99) mg/dL Calcium (8.4-10.2) mg/dL ALT (4-49) U/L Total Protein (6.3-8.2) g/dL Albumin (3.5-5.0) g/dL 07/31/21 07/31/21 07/31/21 Range/Units 06:52 09:14 09:14 RBC 3.22 L (4.30-5.90) m/uL Hgb 10.1 L (13.0-17.5) gm/dL Hct 32.9 L (39.0-53.0) % MCV 102.4 H (80.0-100.0) fL MCHC 30.8 L (31.0-37.0) g/dL RDW 17.3 H (11.5-15.5) % Sodium 132 L (137-145) mmol/L BUN 25 H (9-20) mg/dL Creatinine 1.45 H (0.66-1.25) mg/dL Glucose 176 H (74-99) mg/dL POC Glucose (mg/dL) 164 H (75-99) mg/dL Calcium 8.3 L (8.4-10.2) mg/dL ALT 79 H (4-49) U/L Total Protein 5.5 L (6.3-8.2) g/dL Albumin 2.9 L (3.5-5.0) g/dL 07/31/21 07/31/21 Range/Units 11:15 11:51 RBC (4.30-5.90) m/uL Hgb (13.0-17.5) gm/dL Hct (39.0-53.0) % MCV (80.0-100.0) fL MCHC (31.0-37.0) g/dL RDW (11.5-15.5) % Sodium (137-145) mmol/L BUN (9-20) mg/dL Creatinine (0.66-1.25) mg/dL Glucose (74-99) mg/dL POC Glucose (mg/dL) 202 H 211 H (75-99) mg/dL Calcium (8.4-10.2) mg/dL ALT (4-49) U/L Total Protein (6.3-8.2) g/dL Albumin (3.5-5.0) g/dL Assessment and Plan Assessment: Impression: Triple-vessel coronary artery disease and non-ST elevation myocardial infarction status post three-vessel CABG. Acute systolic congestive heart failure on presentation with ejection fraction of 30-35%. However his repeat echocardiogram showed improvement. Aortic stenosis, status post bioprosthetic aortic valve replacement History of hypertension. Preoperative and postoperative atrial fibrillation Postoperative blood loss anemia, expected. Type 2 diabetes. Acute kidney injury. Recommendation: Continue present supportive care measures Patient is off inotropic support. Continue amiodarone. Orally. Agree with intermittent diuretics Continue incentive spirometry. Continue to monitor renal profile. Early ambulation. We will continue to follow. Time with Patient: Less than 30
[2021-07-31 17:16] LABS: Glucose,Whole Blood 223 mg/dL (75-99)
[2021-07-31 20:02] LABS: Glucose,Whole Blood 281 mg/dL (75-99)
[2021-08-01] MEDS: HEPARIN SODIUM,PORCINE/PF 5,000 UNIT/0.5 ML SYRINGE SQ SCH ×3 (00:41→17:08)
[2021-08-01 02:21] LABS: Glucose,Whole Blood 145 mg/dL (75-99)
[2021-08-01] MEDS: INSULIN ASPART (NovoLOG) 100 UNIT/ML VIAL SQ SCH ×5 (02:22→21:17)
[2021-08-01 03:42] LABS: Anisocytosis Slight; HCT 31.5 % (39.0-53.0); HGB 10.2 gm/dL (13.0-17.5); Hypochromasia Slight; MCH 32.9 pg (25.0-35.0); MCHC 32.5 g/dL (31.0-37.0); Macrocytosis Slight; Mean Platelet Volume 7.5; Platelet Count 222 k/uL (150-450); RBC 3.12 m/uL (4.30-5.90); RDW 17.5 % (11.5-15.5); WBC 5.8 k/uL (3.8-10.6)
[2021-08-01 04:08] LABS: Calcium 8.3 mg/dL (8.4-10.2); Total Bilirubin 1.4 mg/dL (0.2-1.3); Total Protein 5.5 g/dL (6.3-8.2)
[2021-08-01 06:41] LABS: Glucose,Whole Blood 132 mg/dL (75-99)
[2021-08-01] MEDS: PANTOPRAZOLE 40 MG TABLET PO SCH (06:54)
[2021-08-01] MEDS: MIDODRINE 5 MG TAB PO SCH ×3 (06:54→17:08)
--- NOTE | 2021-08-01 07:38 | P.PN ---
Subjective Progress Note Date: 08/01/21 Principal diagnosis: Status post open heart surgery The patient is a 75-year-old gentleman who is status post coronary artery bypass grafting along with aortic valve replacement as well as left atrial appendage ligation. He was seen this morning. He seems to be stable from the cardiac standpoint overview. He has been maintaining normal sinus rhythm was first-degree AV block . Hemodynamically in terms of pressure he is stable as well. Currently he is on dual antiplatelet therapy. He will be started on oral anticoagulation later on today and at that point we can drop one of the antiplatelet either the aspirin or the Plavix. He is on medium intensity statin which I would advise to increase the dose to high intensity statin once his liver function tests are back to normal. Beside that he is on beta jose raul. Down the line with advised the patient also to be on a small dose of ALEJO inhibitor. The chest x-ray was reviewed with and continues to showed evidence of left pleural effusion. Currently he is on Lasix IV. The pacer wires going to be removed later on to day. Objective - Vital Signs Vital signs: Vital Signs Temp 98.2 F 08/01/21 04:00 Pulse 65 08/01/21 07:00 Resp 20 08/01/21 07:00 BP 129/75 08/01/21 07:00 Pulse Ox 93 L 08/01/21 07:00 Intake & Output 07/31/21 08/01/21 08/01/21 18:59 06:59 18:59 Intake Total 236.557 Output Total 950 1525 0 Balance -713.443 -1525 0 Weight 97.5 kg Intake: IV 180 Magnesium Sulfate-D5w Pmx 100 1 gm In Dextrose/Water 1 100ml.bag @ 100 mls/hr IVPB Q1H [facility] Rx#: [id number] Sodium Chloride 0.9% 1, 80 000 ml @ 20 mls/hr IV . Q24H [facility] Rx#:[id number] Intake, IV Titration 56.557 Amount Milrinone-D5w Pmx 20 mg 56.557 In Dextrose/Water 1 100ml .bag @ 0.1 MCG/KG/MIN 3. 072 mls/hr IV .Q24H [facility] Rx#:[id number] Output: Urine 950 1525 0 Other: Voiding Method Urinal Urinal # Voids 1 ABP, PAP, CO, CI - Last Documented Arterial Blood Pressure 98/36 Pulmonary Artery Pressure 31/16 Cardiac Output 4.6 Cardiac Index 2.2 - Constitutional General appearance: Present: no acute distress - Respiratory Respiratory: bilateral: CTA - Cardiovascular Rhythm: regular - Labs CBC & Chem 7: 08/01/21 03:28 08/01/21 03:28 Labs: Abnormal Lab Results - Last 24 Hours (Table) 07/31/21 07/31/21 07/31/21 Range/Units 09:14 09:14 11:15 RBC 3.22 L (4.30-5.90) m/uL Hgb 10.1 L (13.0-17.5) gm/dL Hct 32.9 L (39.0-53.0) % MCV 102.4 H (80.0-100.0) fL MCHC 30.8 L (31.0-37.0) g/dL RDW 17.3 H (11.5-15.5) % Sodium 132 L (137-145) mmol/L BUN 25 H (9-20) mg/dL Creatinine 1.45 H (0.66-1.25) mg/dL Glucose 176 H (74-99) mg/dL POC Glucose (mg/dL) 202 H (75-99) mg/dL Calcium 8.3 L (8.4-10.2) mg/dL Total Bilirubin (0.2-1.3) mg/dL ALT 79 H (4-49) U/L Total Protein 5.5 L (6.3-8.2) g/dL Albumin 2.9 L (3.5-5.0) g/dL 07/31/21 07/31/21 07/31/21 Range/Units 11:51 17:14 20:01 RBC (4.30-5.90) m/uL Hgb (13.0-17.5) gm/dL Hct (39.0-53.0) % MCV (80.0-100.0) fL MCHC (31.0-37.0) g/dL RDW (11.5-15.5) % Sodium (137-145) mmol/L BUN (9-20) mg/dL Creatinine (0.66-1.25) mg/dL Glucose (74-99) mg/dL POC Glucose (mg/dL) 211 H 223 H 281 H (75-99) mg/dL Calcium (8.4-10.2) mg/dL Total Bilirubin (0.2-1.3) mg/dL ALT (4-49) U/L Total Protein (6.3-8.2) g/dL Albumin (3.5-5.0) g/dL 08/01/21 08/01/21 08/01/21 Range/Units 02:19 03:28 03:28 RBC 3.12 L (4.30-5.90) m/uL Hgb 10.2 L (13.0-17.5) gm/dL Hct 31.5 L (39.0-53.0) % MCV 101.0 H (80.0-100.0) fL MCHC (31.0-37.0) g/dL RDW 17.5 H (11.5-15.5) % Sodium 131 L (137-145) mmol/L BUN 27 H (9-20) mg/dL Creatinine (0.66-1.25) mg/dL Glucose 121 H (74-99) mg/dL POC Glucose (mg/dL) 145 H (75-99) mg/dL Calcium 8.3 L (8.4-10.2) mg/dL Total Bilirubin 1.4 H (0.2-1.3) mg/dL ALT 66 H (4-49) U/L Total Protein 5.5 L (6.3-8.2) g/dL Albumin 3.0 L (3.5-5.0) g/dL 08/01/21 Range/Units 06:39 RBC (4.30-5.90) m/uL Hgb (13.0-17.5) gm/dL Hct (39.0-53.0) % MCV (80.0-100.0) fL MCHC (31.0-37.0) g/dL RDW (11.5-15.5) % Sodium (137-145) mmol/L BUN (9-20) mg/dL Creatinine (0.66-1.25) mg/dL Glucose (74-99) mg/dL POC Glucose (mg/dL) 132 H (75-99) mg/dL Calcium (8.4-10.2) mg/dL Total Bilirubin (0.2-1.3) mg/dL ALT (4-49) U/L Total Protein (6.3-8.2) g/dL Albumin (3.5-5.0) g/dL Assessment and Plan Assessment: Assessment #1 status post coronary artery bypass grafting #2 status post aortic valve replacement #3 status post left atrial appendage ligation #4 paroxysmal atrial fibrillation #5 multiple comorbid conditions Plan #1 continue the current medical regimen #2 start the patient on oral anticoagulation #3 continue oral antiplatelet either with aspirin or Plavix #4 increase the dose of statin down the line #5 continue IV Lasix #6 follow-up with the patient
--- NOTE | 2021-08-01 07:59 | P.PN ---
Subjective Progress Note Date: 08/01/21 Principal diagnosis: Triple-vessel coronary artery disease, non-STEMI and admission, acute systolic heart failure present on admission, EF 30-35%, first-degree heart block, paroxys mal episodes of second-degree and complete heart block this admission, acute kidney injury, elevated CRP, pro-calcitonin on admission. Previous medical history of hypertension, hyperlipidemia, jyu-xfctulg-jjmoeyqhy diabetes, never smoker, family history of heart disease, remains unvaccinated against covid POD #10 triple-vessel coronary artery bypass grafting using the left internal mammary artery to the left anterior descending coronary artery, reverse greater saphenous vein graft from the aorta to the second obtuse marginal coronary artery, and reverse greater saphenous vein graft from the aorta to the third obtuse marginal coronary artery. Aortic valve replacement using a 23 mm pericardial bioprosthetic Inspiris. Bilateral pulmonary vein isolation using bipolar radiofrequency energy from Atricure, exclusion of the left atrial appendage using a 40 mm Atriclip, intraoperative transesophageal echocardiogram, epi-aortic scanning and graft flow measurements using the Sprinklr-Stim system. Endoscopic harvesting of left greater saphenous vein from the ankle to the groin, and right greater saphenous vein from just below the knee to the groin. Postoperative acute blood loss anemia, expected given hemodilution and cardiopulmonary bypass. Hypotension, multifactorial Paroxysmal atrial fibrillation, a known common occurrence after cardiac surgery and expected due to his known preoperative atrial fibrillation. The patient was seen and examined this morning sitting up in the recliner in the ICU in no acute distress. He denies any pain or shortness of breath. Remains in sinus rhythm with first degree AV block with rate in the low 60s, blood pressure stable. Patient continues to show improvement daily. He has ambulated in the hallway with PT/OT, tolerated well. Remans on room air and oxygenating well, using IS. Had first postop shower yesterday. No other new concerns. Objective - Vital Signs Vital signs: Vital Signs Temp 98.2 F 08/01/21 04:00 Pulse 65 08/01/21 07:00 Resp 20 08/01/21 07:00 BP 129/75 08/01/21 07:00 Pulse Ox 93 L 08/01/21 07:00 Intake & Output 07/31/21 08/01/21 08/01/21 18:59 06:59 18:59 Intake Total 236.557 Output Total 950 1525 0 Balance -713.443 -1525 0 Weight 97.5 kg Intake: IV 180 Magnesium Sulfate-D5w Pmx 100 1 gm In Dextrose/Water 1 100ml.bag @ 100 mls/hr IVPB Q1H [facility] Rx#: [id number] Sodium Chloride 0.9% 1, 80 000 ml @ 20 mls/hr IV . Q24H [facility] Rx#:[id number] Intake, IV Titration 56.557 Amount Milrinone-D5w Pmx 20 mg 56.557 In Dextrose/Water 1 100ml .bag @ 0.1 MCG/KG/MIN 3. 072 mls/hr IV .Q24H [facility] Rx#:[id number] Output: Urine 950 1525 0 Other: Voiding Method Urinal Urinal # Voids 1 ABP, PAP, CO, CI - Last Documented Arterial Blood Pressure 98/36 Pulmonary Artery Pressure 31/16 Cardiac Output 4.6 Cardiac Index 2.2 - Exam CONSTITUTIONAL: Appears comfortable, cooperative, no acute distress RESPIRATORY: Lungs sounds diminished bilaterally. Respirations even, nonlabored. Currently on room air with oxygen saturation 95%. Able to achieve 1000 mL on incentive spirometry. Strong dry cough. CARDIOVASCULAR: S1, S2 present. Regular rate, rhythm, sinus rhythm with long first degree AV block on telemetry. Sternum stable. Palpable peripheral pulses bilaterally. Minimal edema still present. No calf pain or tenderness noted. Heart hugger in place with patient demonstrating appropriate use. Anti embolism stockings, SCDs present. GASTROINTESTINAL: Abdomen soft, nontender, nondistended. Active bowel sounds present 4 quadrants. Tolerating diet. Positive bowel movement GENITOURINARY: Continues to void, 2475 mL in the last 24 hours INTEGUMENTARY: Skin is warm and dry with evidence of good perfusion. Anterior chest incision well approximated and covered with dry intact dressing. Bilat eral EVH sites well approximated without redness or drainage. NEUROLOGIC: Cranial nerves II through XII intact MUSKULOSKELETAL: Able to move all extremities, strength equal bilaterally, gait normal PSYCHIATRIC: Alert and oriented to person place and time, appropriate affect, intact judgment and insight INVASIVE LINES AND TUBES: A/V epicardial pacemaker wires present, grounded - Allied health notes Allied health notes reviewed: nursing - Labs CBC & Chem 7: 08/01/21 03:28 08/01/21 03:28 Labs: Abnormal Lab Results - Last 24 Hours (Table) 07/31/21 07/31/21 07/31/21 Range/Units 09:14 09:14 11:15 RBC 3.22 L (4.30-5.90) m/uL Hgb 10.1 L (13.0-17.5) gm/dL Hct 32.9 L (39.0-53.0) % MCV 102.4 H (80.0-100.0) fL MCHC 30.8 L (31.0-37.0) g/dL RDW 17.3 H (11.5-15.5) % Sodium 132 L (137-145) mmol/L BUN 25 H (9-20) mg/dL Creatinine 1.45 H (0.66-1.25) mg/dL Glucose 176 H (74-99) mg/dL POC Glucose (mg/dL) 202 H (75-99) mg/dL Calcium 8.3 L (8.4-10.2) mg/dL Total Bilirubin (0.2-1.3) mg/dL ALT 79 H (4-49) U/L Total Protein 5.5 L (6.3-8.2) g/dL Albumin 2.9 L (3.5-5.0) g/dL 07/31/21 07/31/21 07/31/21 Range/Units 11:51 17:14 20:01 RBC (4.30-5.90) m/uL Hgb (13.0-17.5) gm/dL Hct (39.0-53.0) % MCV (80.0-100.0) fL MCHC (31.0-37.0) g/dL RDW (11.5-15.5) % Sodium (137-145) mmol/L BUN (9-20) mg/dL Creatinine (0.66-1.25) mg/dL Glucose (74-99) mg/dL POC Glucose (mg/dL) 211 H 223 H 281 H (75-99) mg/dL Calcium (8.4-10.2) mg/dL Total Bilirubin (0.2-1.3) mg/dL ALT (4-49) U/L Total Protein (6.3-8.2) g/dL Albumin (3.5-5.0) g/dL 08/01/21 08/01/21 08/01/21 Range/Units 02:19 03:28 03:28 RBC 3.12 L (4.30-5.90) m/uL Hgb 10.2 L (13.0-17.5) gm/dL Hct 31.5 L (39.0-53.0) % MCV 101.0 H (80.0-100.0) fL MCHC (31.0-37.0) g/dL RDW 17.5 H (11.5-15.5) % Sodium 131 L (137-145) mmol/L BUN 27 H (9-20) mg/dL Creatinine (0.66-1.25) mg/dL Glucose 121 H (74-99) mg/dL POC Glucose (mg/dL) 145 H (75-99) mg/dL Calcium 8.3 L (8.4-10.2) mg/dL Total Bilirubin 1.4 H (0.2-1.3) mg/dL ALT 66 H (4-49) U/L Total Protein 5.5 L (6.3-8.2) g/dL Albumin 3.0 L (3.5-5.0) g/dL 08/01/21 Range/Units 06:39 RBC (4.30-5.90) m/uL Hgb (13.0-17.5) gm/dL Hct (39.0-53.0) % MCV (80.0-100.0) fL MCHC (31.0-37.0) g/dL RDW (11.5-15.5) % Sodium (137-145) mmol/L BUN (9-20) mg/dL Creatinine (0.66-1.25) mg/dL Glucose (74-99) mg/dL POC Glucose (mg/dL) 132 H (75-99) mg/dL Calcium (8.4-10.2) mg/dL Total Bilirubin (0.2-1.3) mg/dL ALT (4-49) U/L Total Protein (6.3-8.2) g/dL Albumin (3.5-5.0) g/dL - Imaging and Cardiology Chest x-ray: image reviewed Assessment and Plan Assessment: 1. Triple-vessel coronary artery disease, non-STEMI and admission, status post three-vessel CABG 2. Acute systolic heart failure present on admission, EF 30-35% 3. First-degree heart block, paroxysmal episodes of second-degree and complete heart block this admission 4. Acute kidney injury 5. Elevated CRP, pro-calcitonin on admission 6. Aortic stenosis, status post bioprosthetic aortic valve replacement 7. History of hypertension 8. History of hyperlipidemia, treated, cholesterol 129, LDL 71 9. Svi-mgiusei-xwujamjpm diabetes, hemoglobin A1c 8.6% 10. Never smoker, preoperative FEV1 72% of predicted 11. Family history of heart disease 12. Remains unvaccinated against covid 13. Preoperative as well as postoperative paroxysmal atrial fibrillation, status post bilateral pulmonary vein isolation and left atrial appendage ligation 14. Postoperative acute blood loss anemia, expected 15. Hypotension, multifactorial 16. Transaminitis, trending downward 17. Thrombocytopenia, expected, HIT negative Plan: 1. Continue low dose aspirin, statin, low dose beta jose raul. Continue midodrine, decrease dose to 5 mg TID 2. Continue amiodarone for afib prophylaxis. Will start Eliquis today after removal of pacer wires 3. Encourage incentive spirometry use 10 times every hour while awake. Bronchodilators per pulmonology/critical care medicine. 4. Increase activity, ambulate as tolerated. PT/OT/cardiac rehab following. 5. Will monitor daily labs and chest x-rays. Electrolyte replacement per protocol. Avoid nephrotoxic agents. Lasix dosing per nephrology 6. GI/DVT prophylaxis. 7. Insulin management per primary care service. The patient needs tight glucose control to prevent sternal wound infection and promote healing. 8. Will discontinue epicardial pacer wires. Patient to remain on bedrest for 1 hour post wire removal 9. Pain control with current medication regimen. 10. Strict accurate intake and output. 11. Will place transfer orders for 3 [facility] cardiac stepdown unit. May transfer when bed available 12. Discharge planning in progress. Anticipate discharge to home with home care in the next 24-48 hours 13. More recommendations to follow Time with Patient: Greater than 30
--- NOTE | 2021-08-01 08:20 | XR ---
EXAMINATION TYPE: XR chest 2V DATE OF EXAM: 08/01/2021 COMPARISON: 07/31/2021 HISTORY: 75 year-old male post cardiac surgery TECHNIQUE: PA and lateral views FINDINGS: Median sternotomy wires are present. Prosthetic aortic valve. Post-CABG clips in mediastinum. Heart i s enlarged. Mild interstitial prominence is similar. Improving aeration of the right base. Similar sm all left pleural effusion with left basilar retrocardiac opacity. IMPRESSION: Improving right basilar aeration. Similar mild cardiomegaly along with small left effusion with adjac ent atelectasis and/or consolidation.
[2021-08-01] MEDS: IPRATROPIUM-ALBUTEROL 3 ML NEB INHALATION SCH ×4 (08:49→20:49)
[2021-08-01] MEDS ORDERED: POTASSIUM BICARBONATE/CIT AC 20 MEQ TABLET.EFF PO ONE (09:03)
[2021-08-01] MEDS: POTASSIUM CHLORIDE ER 20 MEQ TAB.ER PO SCH (09:03)
[2021-08-01] MEDS: AMIODARONE 200 MG TAB PO SCH ×2 (09:10→21:16)
[2021-08-01] MEDS: ATORVASTATIN 40 MG TAB PO SCH (09:10)
[2021-08-01] MEDS: MAGNESIUM SULFATE-D5W PMX 1 GM in DEXTROSE/WATER 1 100ML.BAG IVPB SCH ×2 (09:10→11:31)
[2021-08-01] MEDS: FUROSEMIDE 10 MG/ML 2 ML VIAL IV SCH ×2 (09:10→21:17)
[2021-08-01] MEDS: METOPROLOL TARTRATE 12.5 MG TAB PO SCH ×2 (09:10→21:16)
[2021-08-01] MEDS: ASPIRIN 81 MG PO SCH (09:12)
--- NOTE | 2021-08-01 10:27 | P.PN ---
Subjective Principal diagnosis: Patient is seen for follow-up for acute kidney injury. Renal function has improved. Patient is currently being diuresed for volume overload. He has had good urine output with improvement in volume status. Lasix is currently 20 mg IV every 12 hours. There are plans for possible discharge tomorrow. Objective - Vital Signs Vital signs: Vital Signs Temp 97.7 F 08/01/21 08:00 Pulse 65 08/01/21 10:00 Resp 18 08/01/21 10:00 BP 114/64 08/01/21 08:00 Pulse Ox 96 08/01/21 08:00 Intake & Output 07/31/21 08/01/21 08/01/21 18:59 06:59 18:59 Intake Total 236.557 Output Total 950 1525 0 Balance -713.443 -1525 0 Weight 97.5 kg Intake: IV 180 Magnesium Sulfate-D5w Pmx 100 1 gm In Dextrose/Water 1 100ml.bag @ 100 mls/hr IVPB Q1H [facility] Rx#: [id number] Sodium Chloride 0.9% 1, 80 000 ml @ 20 mls/hr IV . Q24H [facility] Rx#:[id number] Intake, IV Titration 56.557 Amount Milrinone-D5w Pmx 20 mg 56.557 In Dextrose/Water 1 100ml .bag @ 0.1 MCG/KG/MIN 3. 072 mls/hr IV .Q24H [facility] Rx#:[id number] Output: Urine 950 1525 0 Other: Voiding Method Urinal Urinal Urinal # Voids 1 0 ABP, PAP, CO, CI - Last Documented Arterial Blood Pressure 98/36 Pulmonary Artery Pressure 31/16 Cardiac Output 4.6 Cardiac Index 2.2 - Exam On examination patient is awake comfortable not in any acute distress. He is alert and oriented 3. Examination of the heart S1 and S2 Examination lungs bilateral breath sounds are heard decreased breath sounds at the bases Abdomen is soft nontender Examination lower extremity shows edema 2+ bilaterally [employer] exam is grossly intact. - Labs CBC & Chem 7: 08/01/21 03:28 08/01/21 03:28 Labs: Abnormal Lab Results - Last 24 Hours (Table) 07/31/21 07/31/21 07/31/21 Range/Units 09:14 09:14 11:15 RBC 3.22 L (4.30-5.90) m/uL Hgb 10.1 L (13.0-17.5) gm/dL Hct 32.9 L (39.0-53.0) % MCV 102.4 H (80.0-100.0) fL MCHC 30.8 L (31.0-37.0) g/dL RDW 17.3 H (11.5-15.5) % Sodium 132 L (137-145) mmol/L BUN 25 H (9-20) mg/dL Creatinine 1.45 H (0.66-1.25) mg/dL Glucose 176 H (74-99) mg/dL POC Glucose (mg/dL) 202 H (75-99) mg/dL Calcium 8.3 L (8.4-10.2) mg/dL Total Bilirubin (0.2-1.3) mg/dL ALT 79 H (4-49) U/L Total Protein 5.5 L (6.3-8.2) g/dL Albumin 2.9 L (3.5-5.0) g/dL 07/31/21 07/31/21 07/31/21 Range/Units 11:51 17:14 20:01 RBC (4.30-5.90) m/uL Hgb (13.0-17.5) gm/dL Hct (39.0-53.0) % MCV (80.0-100.0) fL MCHC (31.0-37.0) g/dL RDW (11.5-15.5) % Sodium (137-145) mmol/L BUN (9-20) mg/dL Creatinine (0.66-1.25) mg/dL Glucose (74-99) mg/dL POC Glucose (mg/dL) 211 H 223 H 281 H (75-99) mg/dL Calcium (8.4-10.2) mg/dL Total Bilirubin (0.2-1.3) mg/dL ALT (4-49) U/L Total Protein (6.3-8.2) g/dL Albumin (3.5-5.0) g/dL 08/01/21 08/01/21 08/01/21 Range/Units 02:19 03:28 03:28 RBC 3.12 L (4.30-5.90) m/uL Hgb 10.2 L (13.0-17.5) gm/dL Hct 31.5 L (39.0-53.0) % MCV 101.0 H (80.0-100.0) fL MCHC (31.0-37.0) g/dL RDW 17.5 H (11.5-15.5) % Sodium 131 L (137-145) mmol/L BUN 27 H (9-20) mg/dL Creatinine (0.66-1.25) mg/dL Glucose 121 H (74-99) mg/dL POC Glucose (mg/dL) 145 H (75-99) mg/dL Calcium 8.3 L (8.4-10.2) mg/dL Total Bilirubin 1.4 H (0.2-1.3) mg/dL ALT 66 H (4-49) U/L Total Protein 5.5 L (6.3-8.2) g/dL Albumin 3.0 L (3.5-5.0) g/dL 08/01/21 Range/Units 06:39 RBC (4.30-5.90) m/uL Hgb (13.0-17.5) gm/dL Hct (39.0-53.0) % MCV (80.0-100.0) fL MCHC (31.0-37.0) g/dL RDW (11.5-15.5) % Sodium (137-145) mmol/L BUN (9-20) mg/dL Creatinine (0.66-1.25) mg/dL Glucose (74-99) mg/dL POC Glucose (mg/dL) 132 H (75-99) mg/dL Calcium (8.4-10.2) mg/dL Total Bilirubin (0.2-1.3) mg/dL ALT (4-49) U/L Total Protein (6.3-8.2) g/dL Albumin (3.5-5.0) g/dL Assessment and Plan Assessment: 1. Acute kidney injury ATN post coronary artery bypass surgery. Creatinine down to 1.25 today. Patient is maintained on IV Lasix which we can continue until discharged tomorrow when he can be switched to by mouth Lasix. 2. CK D stage IIIa secondary to nephrosclerosis baseline creatinine around 1- 1.2 mg/dL 3. A. fib with RVR currently with controlled ventricular response 4. Volume overload currently improved weight is down significantly. 5. Coronary artery disease status post coronary artery bypass surgery 3 6. Hypervolemic hyponatremia currently improving Plan: 1. Can switch to by mouth Lasix in a.m. patient can take 20 mg by mouth daily and follow-up as outpatient in about 1-2 weeks' time. Repeat labs in 3-4 days post discharge.
--- NOTE | 2021-08-01 11:16 | P.PN ---
Subjective Progress Note Date: 08/01/21 On 07/22/2021, patient is seen in intensive care unit following his surgery, patient had a aortic valve replacement with the #23 is parous pericardial bioprosthetic valve, and a three-vessel coronary artery bypass grafting with BAIN to the LAD, SVG to the OM 2 and OM 3, left atrial appendage ligation. Tomasz lopez just arrived to the intensive care unit, intubated, and sedated, on assist-control mode of ventilation with a rate of 16, tidal volume of 500 FiO2 of sent and PEEP of 10. She is currently on 0.9 normal saline at a rate of 50 ML per hour, he is on norepinephrine at 9 mics per minute, vasopressin at 0.02 units/min, primacore at 0.3 mics per kilo per minute, Diprivan and is at 10 mics per kilo per minute. Hemodynamically patient is currently being paced at AAI mode with a rate of 80. Currently blood pressure is 139/48, PA pressures 31/20, CVP is 14, cardiac output is 4.2, cardiac index is 2.0. Patient has 4 chest tubes and mediastinal, 1 right pleural and one left pleural chest tubes, mediastinal chest tubes are connected to the same Pleur-evac, and there is 200 mL of serosanguineous output, left pleural chest tube has 140 mL of sanguinous output and a chest tube with 140 mL of sanguinous output. No air leak. Catheter is in place, and patient is making adequate urine output. Chest x-ray has been reviewed, tube to low intermittent suction. The patient is seen today 07/23/2021 in follow-up in the intensive care unit. This is postoperative day #1 of a triple vessel coronary artery bypass grafting using the BAIN to the LAD, reverse saphenous vein graft to the second obtuse marginal, third obtuse marginal. Aortic valve replacement using a 23 mm pericardial bioprosthetic Inspiris. He was successfully extubated at 10:15 last evening. Currently on 4 L high flow nasal cannula to maintain O2 saturation in the mid 90s. Chest x-ray showing interval development of mild pulmonary vascular congestion and a probable small bilateral effusions. He is sitting up in a chair at the bedside. He is arousable. He drifts off easily. He is oriented 1 to person. Somewhat slow to respond. Very weak. He did have hypotension postoperatively with some acute blood loss anemia. His ejection fraction is 30-35%. He is currently requiring norepinephrine at 0.14 g per kilogram per minute. He is on vasopressin at 0.03 units per minute. Primacor at 0.03 mcg/kg/m. Right IJ Cordis and Cornish skin catheter in place. Current cardiac output 4.6. Cardiac index 2.2. PA pressures 39/15 with a CVP of 14. He is on insulin drip at 4 units per hour. 0.9% normal saline at 50 MLS per hour. He is currently in an atrial paced rhythm at 80 bpm. Pacer wires in place. Mediastinal, right and left pleural chest tubes remain in place. Urine output is adequate. White count 6.3. Hemoglobin 7.3. Platelets 108. Sodium 136. Potassium 5.0. Bicarb 20. BUN 22. Creatinine 1.62. Blood glucose 127. AST 568. ALT 343. Arterial blood gases revealed a pO2 of 84, P CO2 of 30 and a pH of 7.43. He is continued on heparin subcu for DVT prophylaxis. Protonix for GI prophylaxis. On 07/24/2021, the patient is sitting up on a chair. He is postop day #2 following coronary artery bypass surgery and aortic valve replacement. The patient was extubated and he is currently on oxygen by nasal cannula at 2 L. They did use BiPAP on and off post extubation. He was briefly placed on BiPAP yesterday and currently is on 2 L of oxygen by nasal cannula. He is using incentive spirometer. He is weak. His still lethargic. He is not confused. He is moving all 4 extremities without any limitation. The chest x-ray from today is showing adequate expansion of both lungs. Chest tubes are still in place. Some atelectatic changes in the lung bases bilaterally. No evidence of any pneumothorax. Cornish-Adalberto catheter remains in a good location. Meanwhile, the patient remains on a combination of inotropes. He is on milrinone running at 0.3 back to respiratory kilogram per minute and he is also on vasopressin at 0.02 units an hour/minutes and he is also on norepinephrine infusion at 0.04 mcg/kg per minute. His cardiac output is at 4.2 with an index of 2. Pulmonary artery pressures of 43/22. Chest tubes are in place. The patient has 2 mediastinal and 1 left pleural chest tube. Output was noted. The output is in order of less than 100 mL over the past shift and there is no evidence of any air leak. The patient's cardiac rhythm is a atrial fibrillation, slightly tachycardic and the patient is going to be started on amiodarone drip. In terms of his other work, the patient had developed an acute kidney injury. Creatinine was up to 1.6. Today's creatinine is still at 1.6 with a BUN of 26. Sodium is at 140, potassium is at 4.6. White cell count is at 7.3 with a hemoglobin of 9.1 and platelet count of 85. Liver function tests are on the rise. ALT is up to 1133 and AST is up to 497. Insulin drip is still running at the rate of 5 units an hour. On 07/25/2021 patient seen in follow-up in the intensive care unit. Today is postoperative day #3, status post aortic valve replacement surgery, and three- vessel coronary artery bypass grafting with a BAIN to the LAD, SVG to the OM 2 and OM 3 and the left atrial appendage ligation. Patient is awake and alert, he is currently up in the recliner, he is mildly short of breath, does not appear to be in acute distress, he did wear BiPAP support during the day yesterday, and last night with pressures of 12 and 5 and FiO2 of 40%. He is currently on 2 L of oxygen. He remains on multiple drips including epinephrine at 0.02 mics per kilo per minute, milrinone remains a 0.4 mics per kilo per minute, amiodarone is a 0.5 mg/m, norepinephrine at 0.05 mics per kilo per minute, 0.9 normal saline at 50 ML per hour, vasopressin at 0.03 units per kilo per hour, and he is currently receiving a blood transfusion which is infusing at 200 mL on hour. His A. fib is currently slightly better controlled although he still mildly tachycardic at rate of 116 BPM, his blood pressure is 121/55, his PA pressure is 41/23, his CVP is 18, his cardiac output is 5.5 and cardiac index is 2.6. His been afebrile, today's chest x-ray has been reviewed showing persistent cardiomegaly with left greater than right bibasilar infiltrates and/or atelectasis and small left pleural effusion without significant change from one day earlier. He is awake and alert, oriented 3, he is answering to questions appropriately, he is still having some surgical incisional discomfort, his pain rating is 6 out of 10. On oral medications for pain control, incentive spirometry effort is 750 mL. Urine output is in the order of 10-30 ML per hour. Today's labs have been reviewed why blood cell count is 10.0, hemoglobin is 10.2, sodium is 134, potassium is 5.1, chloride is 108, CO2 is 13, anion gap was 13, BUN is 41, creatinine is 1.72, lactic acid today was 3.2, calcium was 8.2, total bilirubin was 2.1, AST was 571, ALT was 497, LFTs are improved. On 07/26/2021 patient is seen in follow-up in intensive care unit, he is awake and alert, in no acute distress, he is currently sitting up in the recliner, breathing comfortably, he is on 2 L of oxygen, he did wear BiPAP support overnight with pressures of 12 and 5 and FiO2 of 35%, and his pulse ox has been in the high 90s between 97-98%, patient has been afebrile, denies worsening dyspnea, his incentive spirometry effort is 750 ML. His right-sided chest tube has been removed, and mediastinal chest tubes have been removed, he only has one left pleural chest tube left in place. There has been 200 mL out of the left pleural chest tube in the last 24 hours. Today's chest x-ray shows cardiomegaly, and stable left lower lobe infiltrate, stable in appearance. Patient remains on vasopressors and inotropes, however vasopressin has been discontinued, and epinephrine drip has been discontinued, patient is currently on norepinephrine at 0.04 mics per kilo per minute which is less than he was on yesterday, and Primacor has also been decreased down to 0.3 mics per kilo per minute, his 0.9 normal saline at a rate of 25 ML per hour, he was given amiodarone bolus this morning, his drip has been discontinued, and patient has been switched to oral amiodarone. He was started on Arixtra for anti- coagulation. He remains in atrial fibrillation with the better controlled rate at 98 BPM. His cardiac output this morning is 4.1, and cardiac index is 1.9. His CVP is 7, his blood pressure is 95/44, his PA pressures 27/15. Patient received a dose of IV Lasix yesterday per nephrology and a history of urine output in the last 24 hours was 1360, however overall he is in positive net fluid balance of 2.2 L over the last 24 hours. Mild swelling in his upper and lower extremities. His creatinine is fairly stable, slightly improved, nephrology is following. On 07/28/2021 patient seen in follow-up in the intensive care unit, he is awake and alert, oriented 3, he sitting up in the recliner, breathing very comfortably, he is currently on room air, with pulse ox of 96-97%, he modynamically stable, he is on small amount of Primacor which is being weaned off, and is currently infusing at 0.2 mics per kilo per minute, norepinephrine drip has been discontinued, vasopressin and epinephrine drips have both been discontinued the day before yesterday, patient has converted to sinus mechanism and has remained in sinus mechanism, currently still pacing at a rate of 80 BPM, hemodynamically he has been stable, his latest cardiac output is 4.6, cardiac index is 2.2, his Cornish-Adalberto catheter will be discontinued today. Full catheter is in place, he is making urine in the order of 40-80 ML per hour. Room air pulse ox is 96-97%, hemodynamically stable, afebrile, his incentive spirometer effort is better today, he is up to a liter on it today compared to 750 on yesterday's exam. His left-sided chest tube remains in place, today's chest x- ray showing persistent cardiomegaly with left greater than right basilar infiltrates and/or atelectasis and small bilateral pleural effusions without significant change compared to yesterday. Today's labs have been reviewed, white blood cell count is 6.2, hemoglobin is 9.5, sodium is 133, potassium is 3.7, chloride is 104, CO2 is 24, BUN of 39, creatinine is 1.2 AST 63, ALT is 193, alkaline phosphatase 72. No nausea vomiting, tolerating oral intake, patient had bowel movements, overall he states he is feeling better, appears to be much more awake and alert, and responsive. He received another dose of IV Lasix today per CT surgery. His been getting intermittent doses of diuretics, over the last 24 hours she is in -1.5 L net fluid balance. Generalized edema is improved. On 07/29/2021 patient seen in follow-up in intensive care unit, patient is awake and alert, in no acute distress. Today is postoperative day #7, status post aortic valve replacement surgery, and three-vessel coronary artery bypass grafting. Patient is breathing comfortably, he is currently on room air and his pulse ox is 96%, hemodynamically patient is stable, he remains on very small dose of Primacor which is currently at 0.1 mics per kilo per minute, no other drips, 0.9 normal saline at rate of 20 ML per hour, he is in sinus mechanism and has remained in sinus mechanism since yesterday with a rate of 67, he is not being paced anymore, and his pacemaker is at VVI backup of 50 BPM. Blood pressure stable 117/84. Did not require BiPAP support overnight, his chest x- ray today showing persistent cardiomegaly with left greater than right bibasilar infiltrates and/or atelectasis and small bilateral pleural effusions. Patient was given a dose of IV Lasix per CT surgery of 40 mg 1 IV push. He is sitting up in the recliner, denies any acute distress, he is working on incentive spirometer, Nava catheter has been discontinued, he is been avoiding. Chest tubes have been discontinued. Today's labs have been reviewed, his white blood cell count is 5.1, hemoglobin is 9.7, sodium is 133, potassium 3.8, chloride is 105, CO2 is 25, BUN is 33, creatinine is 1.3. His LFTs are recovering, his AST is 49, ALT is 1:30, and alk phos is 69. Patient has been receiving intermittent doses of diuretics, he is in -1.3 L net fluid balance over the last 24 hours. His surgical incisions are clean dry and intact. On 08/01/2021 patient seen in follow-up in intensive care unit, today is postoperative day number 10 status post aortic valve replacement surgery, and three-vessel coronary artery bypass grafting. Patient is awake and alert, in no acute distress, room air pulse ox is 96%. Breathing comfortably, sitting up in the recliner, he is awake and alert, oriented 3, denies any specific complaints, his IV fluids have been hep-locked, he is in sinus mechanism with a controlled rate. Today's chest x-ray has been reviewed showing improving right basilar aeration, mild cardiomegaly with small left pleural effusion and adjacent atelectasis. Today's labs have been reviewed, white blood cell count is 5.8, hemoglobin is 10.2, platelet count is 222, sodium is 134 quadrants electrolytes were unremarkable, BUN is 27, creatinine is 1.25. Objective - Vital Signs Vital signs: Vital Signs Temp 97.7 F 08/01/21 08:00 Pulse 65 08/01/21 10:00 Resp 18 08/01/21 10:00 BP 114/64 08/01/21 08:00 Pulse Ox 96 08/01/21 08:00 Intake & Output 07/31/21 08/01/21 08/01/21 18:59 06:59 18:59 Intake Total 236.557 Output Total 950 1525 0 Balance -713.443 -1525 0 Weight 97.5 kg Intake: IV 180 Magnesium Sulfate-D5w Pmx 100 1 gm In Dextrose/Water 1 100ml.bag @ 100 mls/hr IVPB Q1H [facility] Rx#: [id number] Sodium Chloride 0.9% 1, 80 000 ml @ 20 mls/hr IV . Q24H [facility] Rx#:[id number] Intake, IV Titration 56.557 Amount Milrinone-D5w Pmx 20 mg 56.557 In Dextrose/Water 1 100ml .bag @ 0.1 MCG/KG/MIN 3. 072 mls/hr IV .Q24H [facility] Rx#:[id number] Output: Urine 950 1525 0 Other: Voiding Method Urinal Urinal Urinal # Voids 1 0 ABP, PAP, CO, CI - Last Documented Arterial Blood Pressure 98/36 Pulmonary Artery Pressure 31/16 Cardiac Output 4.6 Cardiac Index 2.2 - Exam GENERAL EXAM: Awake and alert, mild short of breath, 75-year-old white gentleman, on room air with a pulse ox of 96% sitting in the recliner. patient did not require BiPAP support last night, his dyspnea seems to have improved, patient is breathing more comfortably on today's exam HEAD: Normocephalic/atraumatic. EYES: Normal reaction of pupils, equal size. Conjunctiva pink, sclera white. NOSE: Clear with pink turbinates. THROAT: No erythema or exudates. NECK: No masses, no JVD, no thyroid enlargement, no adenopathy. CHEST: No chest wall deformity. Symmetrical expansion. 2 chest tubes, 2 MS chest tubes have been discontinued, right pleural chest tube has been discontinued and left pleural chest tubes was also discontinued on 07/28/2021 LUNGS: Equal air entry with no crackles, wheeze, rhonchi or dullness. CVS: Regular rate and rhythm, normal S1 and S2, no gallops, no murmurs, no rubs ABDOMEN: Soft, nontender. No hepatosplenomegaly, normal bowel sounds, no guarding or rigidity. EXTREMITIES: No clubbing, mild edema in upper and lower extremities, no cyanosis, 2+ pulses and upper and lower extremities. MUSCULOSKELETAL: Muscle strength and tone normal. SPINE: No scoliosis or deformity SKIN: No rashes CENTRAL NERVOUS SYSTEM: awake and oriented 3 No focal deficits, tone is normal in all 4 extremities. - Labs CBC & Chem 7: 08/01/21 03:28 08/01/21 03:28 Labs: Abnormal Lab Results - Last 24 Hours (Table) 07/31/21 07/31/21 07/31/21 Range/Units 09:14 09:14 11:15 RBC 3.22 L (4.30-5.90) m/uL Hgb 10.1 L (13.0-17.5) gm/dL Hct 32.9 L (39.0-53.0) % MCV 102.4 H (80.0-100.0) fL MCHC 30.8 L (31.0-37.0) g/dL RDW 17.3 H (11.5-15.5) % Sodium 132 L (137-145) mmol/L BUN 25 H (9-20) mg/dL Creatinine 1.45 H (0.66-1.25) mg/dL Glucose 176 H (74-99) mg/dL POC Glucose (mg/dL) 202 H (75-99) mg/dL Calcium 8.3 L (8.4-10.2) mg/dL Total Bilirubin (0.2-1.3) mg/dL ALT 79 H (4-49) U/L Total Protein 5.5 L (6.3-8.2) g/dL Albumin 2.9 L (3.5-5.0) g/dL 07/31/21 07/31/21 07/31/21 Range/Units 11:51 17:14 20:01 RBC (4.30-5.90) m/uL Hgb (13.0-17.5) gm/dL Hct (39.0-53.0) % MCV (80.0-100.0) fL MCHC (31.0-37.0) g/dL RDW (11.5-15.5) % Sodium (137-145) mmol/L BUN (9-20) mg/dL Creatinine (0.66-1.25) mg/dL Glucose (74-99) mg/dL POC Glucose (mg/dL) 211 H 223 H 281 H (75-99) mg/dL Calcium (8.4-10.2) mg/dL Total Bilirubin (0.2-1.3) mg/dL ALT (4-49) U/L Total Protein (6.3-8.2) g/dL Albumin (3.5-5.0) g/dL 08/01/21 08/01/21 08/01/21 Range/Units 02:19 03:28 03:28 RBC 3.12 L (4.30-5.90) m/uL Hgb 10.2 L (13.0-17.5) gm/dL Hct 31.5 L (39.0-53.0) % MCV 101.0 H (80.0-100.0) fL MCHC (31.0-37.0) g/dL RDW 17.5 H (11.5-15.5) % Sodium 131 L (137-145) mmol/L BUN 27 H (9-20) mg/dL Creatinine (0.66-1.25) mg/dL Glucose 121 H (74-99) mg/dL POC Glucose (mg/dL) 145 H (75-99) mg/dL Calcium 8.3 L (8.4-10.2) mg/dL Total Bilirubin 1.4 H (0.2-1.3) mg/dL ALT 66 H (4-49) U/L Total Protein 5.5 L (6.3-8.2) g/dL Albumin 3.0 L (3.5-5.0) g/dL 08/01/21 Range/Units 06:39 RBC (4.30-5.90) m/uL Hgb (13.0-17.5) gm/dL Hct (39.0-53.0) % MCV (80.0-100.0) fL MCHC (31.0-37.0) g/dL RDW (11.5-15.5) % Sodium (137-145) mmol/L BUN (9-20) mg/dL Creatinine (0.66-1.25) mg/dL Glucose (74-99) mg/dL POC Glucose (mg/dL) 132 H (75-99) mg/dL Calcium (8.4-10.2) mg/dL Total Bilirubin (0.2-1.3) mg/dL ALT (4-49) U/L Total Protein (6.3-8.2) g/dL Albumin (3.5-5.0) g/dL Assessment and Plan Plan: Assessment: #1. Acute non-ST segment elevated myocardial infarction and multivessel coronary artery disease and severe aortic valve stenosis, status post three- vessel coronary artery bypass grafting with BAIN to the LAD, SVG to the OM 2 and OM 3, and aortic valve replacement on 07/22/2021, patient remains in the intensive care unit, today it is postoperative day #3 on 07/25/2021, continues on multiple drips and inotropes for hemodynamic support. Cardiac output and index are improved on multiple drips and inotropes. Patient has developed an acute kidney injury and shock liver, requiring lnorepinephrine, epinephrine, milrinone and vasopressin. Currently improved, patient is off all vasopressors and inotropes #2. Routine postoperative ventilator management, patient was successfully weaned and extubated on postoperative day #0, currently requiring on and off BiPAP support and nasal cannula with 2 L of oxygen and chest x-ray showing cardiomegaly with left greater than right bibasilar infiltrates and atelectasis small left pleural effusion. 07/29/2021 patient is improving, currently on room air, not requiring BiPAP support, breathing more comfortably, chest x-ray continues to show bibasilar atelectasis, and small pleural effusions, has been receiving intermittent doses of diuretics #3. Acute systolic congestive heart failure with an ejection fraction of 30- 35%. His preop CT chest showed bilateral pleural effusions with cardiomegaly #4. Hypotension, multifactorial, related to postoperative bleeding, and poor ejection fraction, improved. Off all inoptropes and vasopressors #5. Acute hypoxic respiratory failure secondary to pulmonary edema. His preop FEV1 was 72% of predicted. Patient was successfully weaned and extubated on postoperative day #0, was on BiPAP support for a day or twp, currently on room air #6. Hypertension #7. Hyperlipidemia #8. Diabetes mellitus type 2 #9. Acute kidney injury likely cardiorenal and related to ATN, currently improved #10. Shock liver, improving #11. Acute blood loss anemia, expected outcome of surgery, patient has received 3 units of packed red blood cells current hemoglobin is 9.5 #12. New onset A. fib with rapid ventricular response currently on oral amio, rate is better controlled, and patient has converted to sinus rhythm on 07/28/2021 Plan: Patient has remained stable, currently not on any drips, all inotropes and vasopressors have been discontinued Patient is maintaining stable O2 saturations on room air Continue encouraging deep breathing and coughing, today's chest x-ray has been reviewed Shows improving right basilar aeration, mild cardiomegaly and small left pleural effusion Remains in sinus mechanism All chest tubes, and catheters have been removed Today's labs have been noted Increase activity as tolerated Possible discharge home in the next 24 hours if cleared by CT surgery I performed a history & physical examination of the patient and discussed their management with my nurse practitioner, Marilu Jiménez. I reviewed the nurse practitioner's note and agree with the documented findings and plan of care. Lung sounds are positive for diffuse wheezes throughout the lung martins. The findings and the impression was discussed with the patient. I attest to the documentation by the nurse practitioner. Time with Patient: Greater than 30
[2021-08-01 11:36] LABS: Glucose,Whole Blood 212 mg/dL (75-99)
[2021-08-01 16:58] LABS: Glucose,Whole Blood 203 mg/dL (75-99)
[2021-08-01 20:37] LABS: Glucose,Whole Blood 184 mg/dL (75-99)
[2021-08-01] MEDS: APIXABAN 5 MG TAB PO SCH (21:17)
--- NOTE | 2021-08-01 23:46 | P.PN ---
Subjective Progress Note Date: 08/01/21 This is a pleasant 75 years old male with past medical history of Diabetes Mellitus, Hyperlipidemia, Hypertension Patient presents because of the progressive exertional dyspnea and decreased leg swelling over one month, bilateral leg swelling and bilateral neck pain. However yesterday he started getting orthopnea, he could not lay down and his asked him to come to emergency room. Also patient is complaining of from dry cough and sore throat, mouth is making some clear phlegm. He denies chest pain or abdominal pain. No dizziness. He was complaining of from little diarrhea, he felt almost going to vomit this morning but did not. No urinary complaints. No weakness or numbness He denies smoking, alcohol or illicit drugs Vitals are stable and he is saturating 96% on room air. Labs were reviewed including unremarkable CBC except for mild lymphopenia at 0.7, INR is 1.0. Sodium is 124, carbon dioxide 17, creatinine 1.1, glucose 220 Liver enzymes not elevated. Troponin is high as 0.418, C-reactive protein 2.0. ProBNP is 4880 Coronavirus not detected. EKG showing normal sinus rhythm at 85 with first-degree AV block and incomplete right bundle branch block, no significant ST-T changes. Chest x-ray: Interstitial pulmonary edema with increased cardiomegaly In the emergency room patient was started on IV Lasix 40 mg every 8 hours and cardiology team were consulted. 07/17/2021 Patient breathing is better, he does not complain from jaw pain or neck pain anymore, he is breathing easier, less leg edema. Patient is continued on IV Lasix 40 mg twice daily, also he is on heparin drip His sodium is improved today to 1.7 however his creatinine went up to 1.4. Because of his worsening kidney function we hold his metformin and switch him to Amaryl 2 mg daily, patient informed of his uncontrolled diabetes as his hemoglobin A1c is a 42.6%. Echocardiogram showed ejection fraction of 30-35% with moderate mitral regurgitation, 2018 8 was 55-60% Patient possibly will go for cardiac cath tomorrow 07/18/2021 Patient feels better, his breathing is easier. He has no more jaw pain, leg swelling is significantly improved he has crepitationandonlyminimal. He has some wheezing during examination most likely secondary to his CHF, patient is nonsmoker with no history of COPD. He is hemodynamically stable, he is on room air. Creatinine is trending up 1.1, 1.4, and 1.58 today. However sodium significantly improved up to 133. His Lasix was switched to 40 mg by mouth daily. His glucose is controlled 136 and 142 after he was started on Amaryl today we will keep monitoring, metformin was held for his acute kidney injury. He has slight ejection fraction of 30-35% with moderate MR and he needs cardiac cath however it is on hold now to further evaluation for his kidney injury, most likely secondary to diuresis, nephrology team was consulted, renal ultrasound is pending. 81 mg 07/19/2021 Patient breathing is improved close to normal however he has some residual basal crepitation which is mild. Very minimal leg swelling. No much exertional dyspnea. And his diuretics are switched to oral dose again Lasix 40 mg daily His creatinine improved 1.3 from 1.8 yesterday. Glucose less than 150. After switching his metformin and to Amaryl 2 mg daily. Hemoglobin A1c is 8.6% Plan for him to go for cardiac cath today. Renal ultrasound showing no hydronephrosis. Tenderness on home dose of aspirin 81 mg, oral Lasix and metoprolol 07/20/2021 Today with minimal dyspnea however he still have bilateral basal crepitation and leg edema, he is saturating 95-96% on 2 L oxygen via nasal cannula. His creatinine slightly up to 1.5. Glucose controlled. Renal ultrasound showing no hydronephrosis. Cardiac cath yesterday showing severe triple coronary artery disease, referred to thoracic surgery been consulted for possible CABG 07/21/2021 Patient currently sitting in bed looks comfortable, no chest pain, no significant dyspnea. Using his incentive spirometry frequently. He is cu rrently kept on heparin drip. Minimal leg swelling, mild basal crepitation. He is hemodynamically stable. He is saturating 97% on 2 L oxygen via nasal cannula. His sodium 132, creatinine improved to 1.28, glucose controlled while he is on Amaryl 2 mg. His metformin, metoprolol and lisinopril are on hold for hypertension acute kidney injury. Patient currently has been worked up for possible cardiac bypass surgery with cardiovascular surgery team on the case. 07/22/2021 Patient is going for cardiac bypass surgery today. This with no chest pain or dyspnea. Hemodynamically stable. Glucose controlled however it might be needed to be started on insulin drip. Most likely patient will go to the intensive care unit post procedure. We will follow up with him 07/23/2021 Patient status post multiple vessel coronary artery bypass grafting for severe triple coronary artery disease and aortic valve replacement for severe aortic stenosis and today is postop day #1. Patient was sitting in chair, awake but very drowsy however he is able to follow commands with minimal movement. Because of his generalized weakness. Patient has hypotension that required pressors in the form of vasodepressor at 0.03 and levophed at 0.14. Also he has some low-grade temperature at 100.9. He is tachypneic at 29, oxygen saturation and requirements is at 4 L/m. He developed postoperative hyperkalemia at 6.3, corrected with 10 units of insulin and D50 ample down to 5.1. He has drop of hemoglobin down to 7.3 and he is getting 1 unit of blood transfusion. Platelet count 108. Sodium is 132, creatinine 1.6 which is close to baseline as he has chronic kidney disease. Never enzymes significantly elevated with AST 568 and ALT 343. Chest x-ray showing no mild pulmonary vascular congestion and receives one-time dose of IV Lasix 20 mg Also he is on insulin drip while metformin and Amaryl are on hold. Blood pressure medication of metoprolol and lisinopril were held prior to surgery because of hypotension and acute kidney injury. Patient currently kept on home dose of aspirin 81 mg and added Mavik 75 mg 07/24/2021 Patient sitting in chair, his mentation improving today and he follows commands with no difficulty moving her arms or legs but he looks very tired and lethargic. Blood pressure is 93/74. Heart rate is around 70. He had no fever today and his respiratory rate is 24-28 and his oxygen saturation is acceptable and 2 L/m of oxygen. His sodium is 140, creatinine stable at 1.6 but liver enzymes trending up to 1133 and AST and ALT is still up about 497. Glucose controlled on insulin drip. He received one unit of blood transfusion in hemoglobin went up 7.38 to 9.1. Platelets 85K. Lipase is normal at 7.3. Chest x-ray showing postsurgical changes and chest tubes are unchanged in pos ition while there is decrease in vascular congestion. His pO2 was one and he is currently on BiPAP with FiO2 of 40%. He remains on amiodarone drip which is added for new onset A. fib. Also his continued on aspirin 81 mg which is home dose and added Plavix in the hospital. 07/25/2021 Patient remains monitored closely in the ICU under critical condition, he is very lethargic but awake and follow commands. His blood pressure is 108/59 and 80/40. That needs pressors. Heart rate is 94. Labs reviewed showing AST is 571 which is improving and ALT fourth 97. Glucose is controlled but around 200. Bilirubin is elevated at 2.1. Her hemoglobin is stable at 10.2. Platelet to 62K and white BC is 10 K. Chest x-ray showing no change with cardiomegaly and bibasilar infiltrates. Ejection fraction is still low at 25-30%. Patient remains on many risks are slightly renal. He is on aspirin and Plavix. And antihypertensive medications are on hold.. 07/26/2021 Patient looks less distressed today sitting in chair most of the time, minimal chest pain. Chest tubes in a Place. His blood pressure is 160/50, heart rate 94, sodium 134, creatinine 1.6. ast 264 and alt 385. bilirubin improved 2.1 down to 1.5. glucose is controlled. hemoglobin 9.6, platelet count 76. chest x-ray showing cardiomegaly with a stable chest tube on the left side and left lower lobe infiltrate stable as well. patient today is a started on fondaparinux, also he is on aspirin and plavix, he needed amiodarone. 07/27/2021 Patient is seen and evaluated and follow-up continues to be closely monitored in the ICU. We are following closely with cardiothoracic surgery and multiple medical consultations including nephrology, pulmonary, cardiology are following closely. Patient continues with chest tubes and is currently sitting up in the chair and working with physical therapy. Chest x-ray today shows postoperative findings with probable basilar atelectasis and possible associated effusion. Per nursing staff and patient patient has had multiple episodes of loose stool and will order C. diff. If negative will consider Imodium and monitor for improvement. Blood sugars being closely monitored patient continues on sliding scale. 07/28/2021 Patient is seen in follow-up today continues to be in the ICU being closely monitored with multiple medical consultations following. Patient had chest tubes and catheter from the neck removed today and is currently sitting up in the chair on room air. Patient is weak and will require physical therapy. C. diff testing was negative and patient continues with some loose stool and will add Imodium. Chest x-ray today shows persistent cardiomegaly with left greater than right bibasilar infiltrates and/or atelectasis and small bilateral pleural effusion are redemonstrated with no significant change. Patient does have incentive spirometer at the bedside and encourage the patient to continue using at least 10 times every hour while awake. 07/29/2021 Patient is seen today and continues to be in the ICU being closely monitored and we are following with cardiothoracic surgery as patient is recently status post CABG. Discussion is possible AICD placement in the next 2-3 days prior to discharge if needed although not currently requiring pacer support. 2d echo ordered and pending. Patient continues with some lower extremity edema and has received a dose of Lasix today. Patient with compression stockings and per patient legs are extremely tender to the touch and taut. Encourage the patient to elevate lower extremities as well at rest. Chest xray today shows Persistent cardiomegaly with left greater than right bibasilar infiltrates and or atelectasis and small bilateral pleural effusions are again remonstrated with no significant change from previous day and no pneumothorax noted from chest tube removal one day ago. 07/30/2020 Patient evaluated today in the ICU sitting up in the chair. he continues on primacor gtt, with pacer wire in place. Plan is for possible pacemaker on sunday. Patient is alert and oriented, appropriate. He is using his IS with a volume of [id number] without difficulty. He is able to take deep breaths with minimal to no pain at incision site. He does have a congested cough intermittent with no sputum production. Tolerating diet. Otherwise no acute events overnight and his only complaint is a sore bottom due to sitting. He has been ambulating. Mild lower extremity edema, starch mangle tender to touch. Repeat chest xray today shows Marked cardiomegaly with bibasilar airspace opacities left greater than right may represent atelectasis and or developing airspace disease. Labs reviewed: WBC 5.1, hgb 10.4, platelets are 144, sodium 133, potassium 3.6, BUN 29, creatinine 1.14, calcium 7.9, magnesium 2.1 ALT 110, protein 4.9. Blood sugars ranging between 85 and 211. 07/31/2021 Patient evaluated in the ICU sitting up in the chair today. He has not had BM for 2 days. His lower extremity edema is slightly improving, less tender to touch. He has walked in the hallways today. He denies chest pain, cough, or shortness of breath. Lungs seems tighter than yesterday he is using IS frequently. Pacer wires are now grounded and patient will not being going for a permanent pacemaker tomorrow. Patient is now on IV lasix 20 mg q12 hour. Repeat chest xray today shows cardiomegaly, possible basilar effusions and associated atelectasis, difficult to exclude pneumonia. 4.5 L of urine output in the last 24 hours. Labs today show white count 5.7, hemoglobin 10.1, platelet count 190, sodium 132, BUN 25, creatinine 1.45 which is increased from yesterday. Mag 1.8, AST 29, ALT 79, total protein 5.5. 08/01/2021 Patient is seen and evaluated in the ICU currently awaiting a bed on the selective unit with multiple medical consultations following. Patient continues with some lower extremity edema and maintained on IV lasix twice daily. Chest xray shows some improving right basilar aeration and similar mild cardiomegaly along with small left effusion with adjacent atelectasis and or consolidation. Patient is currently 95% on room air and denies any shortness of breath. Blood sugars mildly elevated and maintained on sliding scale and will likely require insulin on discharge. Labs: WBC is 5.8, hemoglobin is 10.2, platelets are 222, sodium is 131, potassium 4.0, BUN 27, creatinine 1.25, calcium 8.3, magnesium 1.9, total bili 1.4 Review of systems: Constitutional: No reports of fatigue, fever, or chills Cardiovascular: No reports of chest pain or palpitations Respiratory: No reports of shortness of breath or cough GI: No reports of nausea, vomiting, improvement in diarrhea : No reports of dysuria or retention Neurovascular: reports of generalized weakness, reports moving better and working with physical therapy daily. All medications have been reviewed Active Medications Acetaminophen (Acetaminophen Tab 325 Mg Tab) 650 mg PO Q6HR PRN PRN Reason: Fever and/ or Pain Last Admin: 07/29/21 21:25 Dose: 650 mg Documented by: Albuterol/Ipratropium (Ipratropium-Albuterol 3 Ml Neb) 3 ml INHALATION RT-Q2H PRN PRN Reason: Shortness Of Breath Or Wheezing Last Admin: 07/22/21 22:23 Dose: 3 ml Documented by: Albuterol/Ipratropium (Ipratropium-Albuterol 3 Ml Neb) 3 ml INHALATION RT-QID PENDING SALE TO [facility] Last Admin: 08/01/21 10:36 Dose: Not Given Documented by: Amiodarone HCl (Amiodarone 200 Mg Tab) 200 mg PO BID PENDING SALE TO [facility] Last Admin: 08/01/21 09:10 Dose: 200 mg Documented by: Apixaban (Apixaban 5 Mg Tab) 5 mg PO BID PENDING SALE TO [facility]; Protocol Aspirin (Aspirin 81 Mg) 81 mg PO DAILY PENDING SALE TO [facility] Last Admin: 08/01/21 09:12 Dose: 81 mg Documented by: Atorvastatin Calcium (Atorvastatin 40 Mg Tab) 40 mg PO DAILY PENDING SALE TO [facility] Last Admin: 08/01/21 09:10 Dose: 40 mg Documented by: Bisacodyl (Bisacodyl 10 Mg Supp) 10 mg RECTAL DAILY PRN PRN Reason: Constipation Last Admin: 07/25/21 13:55 Dose: 10 mg Documented by: Darbepoetin Zac (Darbepoetin Zac 40 Mcg/0.4 Ml Syringe) 40 mcg SQ Q7D PENDING SALE TO [facility] Last Admin: 07/26/21 11:59 Dose: 40 mcg Documented by: Furosemide (Furosemide 10 Mg/Ml 2 Ml Vial) 20 mg IV Q12HR PENDING SALE TO [facility] Last Admin: 08/01/21 09:10 Dose: 20 mg Documented by: Heparin Sodium (Porcine) (Heparin Sodium,Porcine/Pf 5,000 Unit/0.5 Ml Syringe) 5,000 unit SQ Q8HR PENDING SALE TO [facility] Stop: 08/01/21 16:30 Last Admin: 08/01/21 09:11 Dose: 5,000 unit Documented by: Insulin Aspart (Insulin Aspart (Novolog) 100 Unit/Ml Vial) 0 unit SQ [id number] PENDING SALE TO [facility]; Protocol Last Admin: 08/01/21 12:03 Dose: 3 unit Documented by: Magnesium Hydroxide (Magnesium Hydroxide 2,400 Mg/10 Ml Cup) 2,400 mg PO BID PRN PRN Reason: Constipation Metoprolol Tartrate (Metoprolol Tartrate 12.5 Mg Tab) 12.5 mg PO BID PENDING SALE TO [facility] Last Admin: 08/01/21 09:10 Dose: 12.5 mg Documented by: Midodrine (Midodrine 5 Mg Tab) 5 mg PO AC-TID PENDING SALE TO [facility] Last Admin: 08/01/21 12:02 Dose: 5 mg Documented by: Miscellaneous Information (Magnesium Replacement Protocol 1 Each [facility]) 1 each MISCELLANE DAILY PRN; Protocol PRN Reason: Per Protocol Miscellaneous Information (Phosphorus Replacement Protoco 1 Each Mis) 1 each MISCELLANE DAILY PRN; Protocol PRN Reason: Per Protocol Miscellaneous Information (Potassium Replacement Protocol 1 Each [facility]) 1 each MISCELLANE DAILY PRN; Protocol PRN Reason: Per Protocol Miscellaneous Information (Potassium Replacement Protocol 1 Each [facility]) 1 each MISCELLANE DAILY PRN; Protocol PRN Reason: Per Protocol Ondansetron HCl (Ondansetron 4 Mg/2 Ml Vial) 4 mg IVP Q6HR PRN PRN Reason: Nausea And Vomiting Pantoprazole Sodium (Pantoprazole 40 Mg Tablet) 40 mg PO AC-BRKFST PENDING SALE TO [facility] Last Admin: 08/01/21 06:54 Dose: 40 mg Documented by: Potassium Bicarbonate (Potassium Bicarbonate/Cit Ac 20 Meq Tablet.Eff) 40 meq PO DAILY PENDING SALE TO [facility] Senna/Docusate Sodium (Sennosides-Docusate Sodium 1 Each Tab) 2 each PO HS PRN PRN Reason: Constipation Sodium Chloride (Sodium Chloride 0.9% Flush 10 Ml Syringe) 10 ml IV BID PENDING SALE TO [facility] Last Admin: 08/01/21 09:13 Dose: 10 ml Documented by: Physical exam: GENERAL: The patient is alert and oriented x3, not in any acute distress. Well developed, well nourished. HEENT: Pupils are round and equally reacting to light. EOMI. No scleral icterus. No conjunctival pallor. Normocephalic, atraumatic. No pharyngeal erythema. No thyromegaly. CARDIOVASCULAR: S1 and S2 present. No murmurs, rubs, or gallops. PULMONARY: Chest is clear to auscultation, no wheezing ABDOMEN: Soft, nontender, nondistended, normoactive bowel sounds. No palpable organomegaly. MUSCULOSKELETAL: No joint swelling or deformity. EXTREMITIES: No cyanosis, clubbing, . Bilateral generalized leg edema with improvement. NEUROLOGICAL: Gross neurological examination did not reveal any focal deficits. SKIN: No rashes. No petechiae Assessment: severe triple coronary artery disease, status post multiple vessel CABG Severe aortic stenosis status post aortic valve replacement Acute systolic heart failure, ischemic cardiomyopathy is suspected with ejection fraction of 30-35%, now with an EF of 50-55% s/p CABG. First degree heart block with episodes of second to complete heart block, card iology following and continued on current medication regimen NSTEMI Acute kidney injury, suspected secondary to diuresis. And also possibly due to his chronic kidney disease stage III, improving Hypotension requiring pressors postoperatively, patient is off pressors, improved Postoperative anemia requiring 1 unit of blood transfusion, hemoglobin has stabilized Sore throat, improved, coronavirus is negative Hyponatremia, improving Diabetes mellitus, With hyperglycemia upon admission . Hemoglobin A1c is 8.6% Paroxysmal atrial fibrillation preoperative and postoperative, patient is on an oral amiodarone taper managed by primary Hypertension Hyperlipidemia GI prophylaxis DVT prophylaxis full code Plan: This is a pleasant 75 years old male who presented with possible acute CHF and high troponin. N-stemi and underwent CABG on 07/22. Continue to monitor blood pressure, off pressor support. 2d echo ordered and EF is improved at 50-55%, patient continues with pacer wires that are now grounded and no plans for pacer tomorrow, Continues in the ICU although awaiting selective bed for transfer. Continue with aspirin and Plavix, Eliquis Recommend Accu-Cheks before meals at bedtime and monitoring glucose while keeping the patient on insulin sliding scale, patient will likely need insulin on discharge for tighter glycemic control Cardiology, pulmonary, nephrology following and cardiology Monitor hemoglobin, hemoglobin is stable at 10.2 Patient continues with loose stool although improving and has imodium as needed. Cdiff testing was negative. Patient continued with bilateral lower extremity edema and is maintained on IV Lasix BID. Encouraged the patient to continue with compression stockings, increasing activity as tolerated, and elevating lower extremities while at rest. Will continue to follow along closely with CT surgery during hospitalization Prognosis is guarded Objective - Vital Signs Vital signs: Vital Signs Temp 98.2 F 08/01/21 04:00 Pulse 65 08/01/21 07:00 Resp 20 08/01/21 07:00 BP 129/75 08/01/21 07:00 Pulse Ox 93 L 08/01/21 07:00 Intake & Output 0108/01/21 08/01/21 18:59 06:59 18:59 Intake Total 236.557 Output Total 950 1525 0 Balance -713.443 -1525 0 Weight 97.5 kg Intake: IV 180 Magnesium Sulfate-D5w Pmx 100 1 gm In Dextrose/Water 1 100ml.bag @ 100 mls/hr IVPB Q1H [facility] Rx#: [id number] Sodium Chloride 0.9% 1, 80 000 ml @ 20 mls/hr IV . Q24H [facility] Rx#:[id number] Intake, IV Titration 56.557 Amount Milrinone-D5w Pmx 20 mg 56.557 In Dextrose/Water 1 100ml .bag @ 0.1 MCG/KG/MIN 3. 072 mls/hr IV .Q24H [facility] Rx#:[id number] Output: Urine 950 1525 0 Other: Voiding Method Urinal Urinal # Voids 1 0 ABP, PAP, CO, CI - Last Documented Arterial Blood Pressure 98/36 Pulmonary Artery Pressure 31/16 Cardiac Output 4.6 Cardiac Index 2.2 - Labs CBC & Chem 7: 08/01/21 03:28 08/01/21 03:28 Labs: Abnormal Lab Results - Last 24 Hours (Table) 07/31/21 07/31/21 07/31/21 Range/Units 09:14 09:14 11:15 RBC 3.22 L (4.30-5.90) m/uL Hgb 10.1 L (13.0-17.5) gm/dL Hct 32.9 L (39.0-53.0) % MCV 102.4 H (80.0-100.0) fL MCHC 30.8 L (31.0-37.0) g/dL RDW 17.3 H (11.5-15.5) % Sodium 132 L (137-145) mmol/L BUN 25 H (9-20) mg/dL Creatinine 1.45 H (0.66-1.25) mg/dL Glucose 176 H (74-99) mg/dL POC Glucose (mg/dL) 202 H (75-99) mg/dL Calcium 8.3 L (8.4-10.2) mg/dL Total Bilirubin (0.2-1.3) mg/dL ALT 79 H (4-49) U/L Total Protein 5.5 L (6.3-8.2) g/dL Albumin 2.9 L (3.5-5.0) g/dL 07/31/21 07/31/21 07/31/21 Range/Units 11:51 17:14 20:01 RBC (4.30-5.90) m/uL Hgb (13.0-17.5) gm/dL Hct (39.0-53.0) % MCV (80.0-100.0) fL MCHC (31.0-37.0) g/dL RDW (11.5-15.5) % Sodium (137-145) mmol/L BUN (9-20) mg/dL Creatinine (0.66-1.25) mg/dL Glucose (74-99) mg/dL POC Glucose (mg/dL) 211 H 223 H 281 H (75-99) mg/dL Calcium (8.4-10.2) mg/dL Total Bilirubin (0.2-1.3) mg/dL ALT (4-49) U/L Total Protein (6.3-8.2) g/dL Albumin (3.5-5.0) g/dL 08/01/21 08/01/21 08/01/21 Range/Units 02:19 03:28 03:28 RBC 3.12 L (4.30-5.90) m/uL Hgb 10.2 L (13.0-17.5) gm/dL Hct 31.5 L (39.0-53.0) % MCV 101.0 H (80.0-100.0) fL MCHC (31.0-37.0) g/dL RDW 17.5 H (11.5-15.5) % Sodium 131 L (137-145) mmol/L BUN 27 H (9-20) mg/dL Creatinine (0.66-1.25) mg/dL Glucose 121 H (74-99) mg/dL POC Glucose (mg/dL) 145 H (75-99) mg/dL Calcium 8.3 L (8.4-10.2) mg/dL Total Bilirubin 1.4 H (0.2-1.3) mg/dL ALT 66 H (4-49) U/L Total Protein 5.5 L (6.3-8.2) g/dL Albumin 3.0 L (3.5-5.0) g/dL 08/01/21 Range/Units 06:39 RBC (4.30-5.90) m/uL Hgb (13.0-17.5) gm/dL Hct (39.0-53.0) % MCV (80.0-100.0) fL MCHC (31.0-37.0) g/dL RDW (11.5-15.5) % Sodium (137-145) mmol/L BUN (9-20) mg/dL Creatinine (0.66-1.25) mg/dL Glucose (74-99) mg/dL POC Glucose (mg/dL) 132 H (75-99) mg/dL Calcium (8.4-10.2) mg/dL Total Bilirubin (0.2-1.3) mg/dL ALT (4-49) U/L Total Protein (6.3-8.2) g/dL Albumin (3.5-5.0) g/dL
[2021-08-02 01:37] LABS: Glucose,Whole Blood 135 mg/dL (75-99)
[2021-08-02] MEDS: INSULIN ASPART (NovoLOG) 100 UNIT/ML VIAL SQ SCH ×3 (01:45→12:14)
[2021-08-02 06:44] LABS: Glucose,Whole Blood 132 mg/dL (75-99)
[2021-08-02] MEDS: PANTOPRAZOLE 40 MG TABLET PO SCH (06:49)
[2021-08-02] MEDS: MIDODRINE 5 MG TAB PO SCH ×2 (06:52→11:59)
[2021-08-02] MEDS: IPRATROPIUM-ALBUTEROL 3 ML NEB INHALATION SCH ×2 (07:20→11:04)
[2021-08-02 08:09] LABS: Anisocytosis Slight; HCT 34.1 % (39.0-53.0); HGB 10.7 gm/dL (13.0-17.5); Hypochromasia Slight; MCHC 31.3 g/dL (31.0-37.0); MCV 102.3 fL (80.0-100.0); Macrocytosis Moderate; Mean Platelet Volume 7.8; Platelet Count 232 k/uL (150-450); RBC 3.34 m/uL (4.30-5.90); RDW 17.1 % (11.5-15.5); WBC 5.2 k/uL (3.8-10.6)
--- NOTE | 2021-08-02 08:18 | XR ---
EXAMINATION TYPE: XR chest 2V DATE OF EXAM: 08/02/2021 COMPARISON: 08/01/2021 HISTORY: Shortness of breath TECHNIQUE: Frontal and lateral views of the chest are obtained. FINDINGS: Scattered senescent parenchymal changes noted. Hyperinflation compatible with COPD. Left lower lobe infiltrate or atelectasis persists with small effusion. Heart size is stable. Mediastinal structures are stable and grossly unremarkable. No evidence for hilar prominence. Degenerative changes dorsal spine. IMPRESSION: 1. Left lower lobe infiltrate or atelectasis persists with small effusion.
[2021-08-02 08:23] LABS: Albumin 3.4 g/dL (3.5-5.0); Calcium 8.3 mg/dL (8.4-10.2); Total Bilirubin 1.7 mg/dL (0.2-1.3); Total Protein 6.2 g/dL (6.3-8.2)
--- NOTE | 2021-08-02 08:31 | P.PN ---
Subjective Progress Note Date: 08/02/21 Principal diagnosis: Triple-vessel coronary artery disease, non-STEMI and admission, acute systolic heart failure present on admission, EF 30-35%, first-degree heart block, paroxys mal episodes of second-degree and complete heart block this admission, acute kidney injury, elevated CRP, pro-calcitonin on admission. Previous medical history of hypertension, hyperlipidemia, enh-exabhdz-bnbzjcudp diabetes, never smoker, family history of heart disease, remains unvaccinated against covid POD #11 triple-vessel coronary artery bypass grafting using the left internal mammary artery to the left anterior descending coronary artery, reverse greater saphenous vein graft from the aorta to the second obtuse marginal coronary artery, and reverse greater saphenous vein graft from the aorta to the third obtuse marginal coronary artery. Aortic valve replacement using a 23 mm pericardial bioprosthetic Inspiris. Bilateral pulmonary vein isolation using bipolar radiofrequency energy from [employer], exclusion of the left atrial appendage using a 40 mm Atriclip, intraoperative transesophageal echocardiogram, epi-aortic scanning and graft flow measurements using the [employer]-Stim system. Endoscopic harvesting of left greater saphenous vein from the ankle to the groin, and right greater saphenous vein from just below the knee to the groin. Postoperative acute blood loss anemia, expected given hemodilution and cardiopulmonary bypass. Hypotension, multifactorial Paroxysmal atrial fibrillation, a known common occurrence after cardiac surgery and expected due to his known preoperative atrial fibrillation. The patient was seen and examined this morning sitting up in the recliner on the cardiac stepdown unit in no acute distress. He denies any pain except continued pain to his coccyx, denies shortness of breath. Remains in sinus rhythm with first degree AV block with rate in the low 60s, blood pressure stable. Patient continues to show improvement daily. He has ambulated in the hallway with PT/OT, tolerated well. Remans on room air and oxygenating well, using IS. P acemaker wires discontinued yesterday. Patient has showered daily. No other new concerns. Objective - Vital Signs Vital signs: Vital Signs Temp 98.2 F 08/02/21 03:21 Pulse 70 08/02/21 07:31 Resp 18 08/02/21 03:21 BP 98/60 08/02/21 03:21 Pulse Ox 94 L 08/02/21 03:21 Intake & Output 08/01/21 08/02/21 08/02/21 18:59 06:59 18:59 Intake Total 680 Output Total 800 Balance -120 Weight 98.2 kg Intake: IV 200 Magnesium Sulfate-D5w Pmx 200 1 gm In Dextrose/Water 1 100ml.bag @ 100 mls/hr IVPB Q1H BISHOP Rx#: [id number] Oral 480 Output: Urine 800 Other: Voiding Method Urinal Urinal # Voids 0 1 # Bowel Movements 1 ABP, PAP, CO, CI - Last Documented Arterial Blood Pressure 98/36 Pulmonary Artery Pressure 31/16 Cardiac Output 4.6 Cardiac Index 2.2 - Exam CONSTITUTIONAL: Appears comfortable, cooperative, no acute distress RESPIRATORY: Lungs sounds diminished bilaterally. Respirations even, nonlabored. Currently on room air with oxygen saturation 94%. Able to achieve 1000 mL on incentive spirometry. Strong productive cough. CARDIOVASCULAR: S1, S2 present. Regular rate, rhythm, sinus rhythm with long first degree AV block on telemetry. Sternum stable. Palpable peripheral pulses bilaterally. Minimal edema still present. No calf pain or tenderness noted. Heart hugger in place with patient demonstrating appropriate use. Antiembolism stockings, SCDs present. GASTROINTESTINAL: Abdomen soft, nontender, nondistended. Active bowel sounds present 4 quadrants. Tolerating diet. Positive bowel movement this morning GENITOURINARY: Continues to void INTEGUMENTARY: Skin is warm and dry with evidence of good perfusion. Anterior chest incision well approximated. Bilateral EVH sites well approximated without redness or drainage. NEUROLOGIC: Cranial nerves II through XII intact MUSKULOSKELETAL: Able to move all extremities, strength equal bilaterally, gait normal PSYCHIATRIC: Alert and oriented to person place and time, appropriate affect, intact judgment and insight - Allied health notes Allied health notes reviewed: nursing - Labs CBC & Chem 7: 08/02/21 07:44 08/02/21 07:44 Labs: Abnormal Lab Results - Last 24 Hours (Table) 08/01/21 08/01/21 08/01/21 Range/Units 11:34 16:38 20:36 POC Glucose (mg/dL) 212 H 203 H 184 H (75-99) mg/dL 08/02/21 08/02/21 Range/Units 01:35 06:43 POC Glucose (mg/dL) 135 H 132 H (75-99) mg/dL - Imaging and Cardiology Chest x-ray: image reviewed Assessment and Plan Assessment: 1. Triple-vessel coronary artery disease, non-STEMI and admission, status post three-vessel CABG 2. Acute systolic heart failure present on admission, EF 30-35% 3. First-degree heart block, paroxysmal episodes of second-degree and complete heart block this admission 4. Acute kidney injury 5. Elevated CRP, pro-calcitonin on admission 6. Aortic stenosis, status post bioprosthetic aortic valve replacement 7. History of hypertension 8. History of hyperlipidemia, treated, cholesterol 129, LDL 71 9. Wry-ghklsnt-kjiyhezjz diabetes, hemoglobin A1c 8.6% 10. Never smoker, preoperative FEV1 72% of predicted 11. Family history of heart disease 12. Remains unvaccinated against covid 13. Preoperative as well as postoperative paroxysmal atrial fibrillation, status post bilateral pulmonary vein isolation and left atrial appendage ligation 14. Postoperative acute blood loss anemia, expected 15. Hypotension, multifactorial 16. Transaminitis, trending downward 17. Thrombocytopenia, expected, HIT negative Plan: 1. Continue low dose aspirin, statin, low dose beta jose raul. Continue midodrine 2. Continue amiodarone for afib prophylaxis. Continue Eliquis 3. Encourage incentive spirometry use 10 times every hour while awake. Bronchodilators per pulmonology/critical care medicine. 4. Increase activity, ambulate as tolerated. PT/OT/cardiac rehab following. 5. Will monitor daily labs and chest x-rays. Electrolyte replacement per protocol. Avoid nephrotoxic agents. Lasix dosing per nephrology 6. GI/DVT prophylaxis. 7. Insulin management per primary care service. Discussed with internal medicine the discharge meds, will add glipizide for better blood sugar control 8. Pain control with current medication regimen. 9. Strict accurate intake and output. 10. Discharge planning in progress. Anticipate discharge to home with home care today 11. More recommendations to follow Time with Patient: Greater than 30
[2021-08-02] MEDS: ATORVASTATIN 40 MG TAB PO SCH (08:50)
[2021-08-02] MEDS: FUROSEMIDE 10 MG/ML 2 ML VIAL IV SCH (08:50)
[2021-08-02] MEDS: METOPROLOL TARTRATE 12.5 MG TAB PO SCH (08:50)
[2021-08-02] MEDS: APIXABAN 5 MG TAB PO SCH (08:50)
[2021-08-02] MEDS: AMIODARONE 200 MG TAB PO SCH (08:50)
[2021-08-02] MEDS: ASPIRIN 81 MG PO SCH (08:50)
[2021-08-02] MEDS ORDERED: POTASSIUM BICARBONATE/CIT AC 20 MEQ TABLET.EFF PO SCH (09:00)
[2021-08-02] MEDS ORDERED: metFORMIN 500 MG TAB PO SCH (10:15)
--- NOTE | 2021-08-02 11:57 | P.PN ---
Subjective Progress Note Date: 08/02/21 This is a pleasant 75 years old male with past medical history of Diabetes Mellitus, Hyperlipidemia, Hypertension Patient presents because of the progressive exertional dyspnea and decreased leg swelling over one month, bilateral leg swelling and bilateral neck pain. However yesterday he started getting orthopnea, he could not lay down and his asked him to come to emergency room. Also patient is complaining of from dry cough and sore throat, mouth is making some clear phlegm. He denies chest pain or abdominal pain. No dizziness. He was complaining of from little diarrhea, he felt almost going to vomit this morning but did not. No urinary complaints. No weakness or numbness He denies smoking, alcohol or illicit drugs Vitals are stable and he is saturating 96% on room air. Labs were reviewed including unremarkable CBC except for mild lymphopenia at 0.7, INR is 1.0. Sodium is 124, carbon dioxide 17, creatinine 1.1, glucose 220 Liver enzymes not elevated. Troponin is high as 0.418, C-reactive protein 2.0. ProBNP is 4880 Coronavirus not detected. EKG showing normal sinus rhythm at 85 with first-degree AV block and incomplete right bundle branch block, no significant ST-T changes. Chest x-ray: Interstitial pulmonary edema with increased cardiomegaly In the emergency room patient was started on IV Lasix 40 mg every 8 hours and cardiology team were consulted. 07/17/2021 Patient breathing is better, he does not complain from jaw pain or neck pain anymore, he is breathing easier, less leg edema. Patient is continued on IV Lasix 40 mg twice daily, also he is on heparin drip His sodium is improved today to 1.7 however his creatinine went up to 1.4. Because of his worsening kidney function we hold his metformin and switch him to Amaryl 2 mg daily, patient informed of his uncontrolled diabetes as his hemoglobin A1c is a 42.6%. Echocardiogram showed ejection fraction of 30-35% with moderate mitral regurgitation, 2018 8 was 55-60% Patient possibly will go for cardiac cath tomorrow 07/18/2021 Patient feels better, his breathing is easier. He has no more jaw pain, leg swelling is significantly improved he has crepitationandonlyminimal. He has some wheezing during examination most likely secondary to his CHF, patient is nonsmoker with no history of COPD. He is hemodynamically stable, he is on room air. Creatinine is trending up 1.1, 1.4, and 1.58 today. However sodium significantly improved up to 133. His Lasix was switched to 40 mg by mouth daily. His glucose is controlled 136 and 142 after he was started on Amaryl today we will keep monitoring, metformin was held for his acute kidney injury. He has slight ejection fraction of 30-35% with moderate MR and he needs cardiac cath however it is on hold now to further evaluation for his kidney injury, most likely secondary to diuresis, nephrology team was consulted, renal ultrasound is pending. 81 mg 07/19/2021 Patient breathing is improved close to normal however he has some residual basal crepitation which is mild. Very minimal leg swelling. No much exertional dyspnea. And his diuretics are switched to oral dose again Lasix 40 mg daily His creatinine improved 1.3 from 1.8 yesterday. Glucose less than 150. After switching his metformin and to Amaryl 2 mg daily. Hemoglobin A1c is 8.6% Plan for him to go for cardiac cath today. Renal ultrasound showing no hydronephrosis. Tenderness on home dose of aspirin 81 mg, oral Lasix and metoprolol 07/20/2021 Today with minimal dyspnea however he still have bilateral basal crepitation and leg edema, he is saturating 95-96% on 2 L oxygen via nasal cannula. His creatinine slightly up to 1.5. Glucose controlled. Renal ultrasound showing no hydronephrosis. Cardiac cath yesterday showing severe triple coronary artery disease, referred to thoracic surgery been consulted for possible CABG 07/21/2021 Patient currently sitting in bed looks comfortable, no chest pain, no significant dyspnea. Using his incentive spirometry frequently. He is cu rrently kept on heparin drip. Minimal leg swelling, mild basal crepitation. He is hemodynamically stable. He is saturating 97% on 2 L oxygen via nasal cannula. His sodium 132, creatinine improved to 1.28, glucose controlled while he is on Amaryl 2 mg. His metformin, metoprolol and lisinopril are on hold for hypertension acute kidney injury. Patient currently has been worked up for possible cardiac bypass surgery with cardiovascular surgery team on the case. 07/22/2021 Patient is going for cardiac bypass surgery today. This with no chest pain or dyspnea. Hemodynamically stable. Glucose controlled however it might be needed to be started on insulin drip. Most likely patient will go to the intensive care unit post procedure. We will follow up with him 07/23/2021 Patient status post multiple vessel coronary artery bypass grafting for severe triple coronary artery disease and aortic valve replacement for severe aortic stenosis and today is postop day #1. Patient was sitting in chair, awake but very drowsy however he is able to follow commands with minimal movement. Because of his generalized weakness. Patient has hypotension that required pressors in the form of vasodepressor at 0.03 and levophed at 0.14. Also he has some low-grade temperature at 100.9. He is tachypneic at 29, oxygen saturation and requirements is at 4 L/m. He developed postoperative hyperkalemia at 6.3, corrected with 10 units of insulin and D50 ample down to 5.1. He has drop of hemoglobin down to 7.3 and he is getting 1 unit of blood transfusion. Platelet count 108. Sodium is 132, creatinine 1.6 which is close to baseline as he has chronic kidney disease. Never enzymes significantly elevated with AST 568 and ALT 343. Chest x-ray showing no mild pulmonary vascular congestion and receives one-time dose of IV Lasix 20 mg Also he is on insulin drip while metformin and Amaryl are on hold. Blood pressure medication of metoprolol and lisinopril were held prior to surgery because of hypotension and acute kidney injury. Patient currently kept on home dose of aspirin 81 mg and added Mavik 75 mg 07/24/2021 Patient sitting in chair, his mentation improving today and he follows commands with no difficulty moving her arms or legs but he looks very tired and lethargic. Blood pressure is 93/74. Heart rate is around 70. He had no fever today and his respiratory rate is 24-28 and his oxygen saturation is acceptable and 2 L/m of oxygen. His sodium is 140, creatinine stable at 1.6 but liver enzymes trending up to 1133 and AST and ALT is still up about 497. Glucose controlled on insulin drip. He received one unit of blood transfusion in hemoglobin went up 7.38 to 9.1. Platelets 85K. Lipase is normal at 7.3. Chest x-ray showing postsurgical changes and chest tubes are unchanged in pos ition while there is decrease in vascular congestion. His pO2 was one and he is currently on BiPAP with FiO2 of 40%. He remains on amiodarone drip which is added for new onset A. fib. Also his continued on aspirin 81 mg which is home dose and added Plavix in the hospital. 07/25/2021 Patient remains monitored closely in the ICU under critical condition, he is very lethargic but awake and follow commands. His blood pressure is 108/59 and 80/40. That needs pressors. Heart rate is 94. Labs reviewed showing AST is 571 which is improving and ALT fourth 97. Glucose is controlled but around 200. Bilirubin is elevated at 2.1. Her hemoglobin is stable at 10.2. Platelet to 62K and white BC is 10 K. Chest x-ray showing no change with cardiomegaly and bibasilar infiltrates. Ejection fraction is still low at 25-30%. Patient remains on many risks are slightly renal. He is on aspirin and Plavix. And antihypertensive medications are on hold.. 07/26/2021 Patient looks less distressed today sitting in chair most of the time, minimal chest pain. Chest tubes in a Place. His blood pressure is 160/50, heart rate 94, sodium 134, creatinine 1.6. ast 264 and alt 385. bilirubin improved 2.1 down to 1.5. glucose is controlled. hemoglobin 9.6, platelet count 76. chest x-ray showing cardiomegaly with a stable chest tube on the left side and left lower lobe infiltrate stable as well. patient today is a started on fondaparinux, also he is on aspirin and plavix, he needed amiodarone. 07/27/2021 Patient is seen and evaluated and follow-up continues to be closely monitored in the ICU. We are following closely with cardiothoracic surgery and multiple medical consultations including nephrology, pulmonary, cardiology are following closely. Patient continues with chest tubes and is currently sitting up in the chair and working with physical therapy. Chest x-ray today shows postoperative findings with probable basilar atelectasis and possible associated effusion. Per nursing staff and patient patient has had multiple episodes of loose stool and will order C. diff. If negative will consider Imodium and monitor for improvement. Blood sugars being closely monitored patient continues on sliding scale. 07/28/2021 Patient is seen in follow-up today continues to be in the ICU being closely monitored with multiple medical consultations following. Patient had chest tubes and catheter from the neck removed today and is currently sitting up in the chair on room air. Patient is weak and will require physical therapy. C. diff testing was negative and patient continues with some loose stool and will add Imodium. Chest x-ray today shows persistent cardiomegaly with left greater than right bibasilar infiltrates and/or atelectasis and small bilateral pleural effusion are redemonstrated with no significant change. Patient does have incentive spirometer at the bedside and encourage the patient to continue using at least 10 times every hour while awake. 07/29/2021 Patient is seen today and continues to be in the ICU being closely monitored and we are following with cardiothoracic surgery as patient is recently status post CABG. Discussion is possible AICD placement in the next 2-3 days prior to discharge if needed although not currently requiring pacer support. 2d echo ordered and pending. Patient continues with some lower extremity edema and has received a dose of Lasix today. Patient with compression stockings and per patient legs are extremely tender to the touch and taut. Encourage the patient to elevate lower extremities as well at rest. Chest xray today shows Persistent cardiomegaly with left greater than right bibasilar infiltrates and or atelectasis and small bilateral pleural effusions are again remonstrated with no significant change from previous day and no pneumothorax noted from chest tube removal one day ago. 07/30/2020 Patient evaluated today in the ICU sitting up in the chair. he continues on primacor gtt, with pacer wire in place. Plan is for possible pacemaker on sunday. Patient is alert and oriented, appropriate. He is using his IS with a volume of [id number] without difficulty. He is able to take deep breaths with minimal to no pain at incision site. He does have a congested cough intermittent with no sputum production. Tolerating diet. Otherwise no acute events overnight and his only complaint is a sore bottom due to sitting. He has been ambulating. Mild lower extremity edema, hydrogenation still operator to touch. Repeat chest xray today shows Marked cardiomegaly with bibasilar airspace opacities left greater than right may represent atelectasis and or developing airspace disease. Labs reviewed: WBC 5.1, hgb 10.4, platelets are 144, sodium 133, potassium 3.6, BUN 29, creatinine 1.14, calcium 7.9, magnesium 2.1 ALT 110, protein 4.9. Blood sugars ranging between 85 and 211. 07/31/2021 Patient evaluated in the ICU sitting up in the chair today. He has not had BM for 2 days. His lower extremity edema is slightly improving, less tender to touch. He has walked in the hallways today. He denies chest pain, cough, or shortness of breath. Lungs seems tighter than yesterday he is using IS frequently. Pacer wires are now grounded and patient will not being going for a permanent pacemaker tomorrow. Patient is now on IV lasix 20 mg q12 hour. Repeat chest xray today shows cardiomegaly, possible basilar effusions and associated atelectasis, difficult to exclude pneumonia. 4.5 L of urine output in the last 24 hours. Labs today show white count 5.7, hemoglobin 10.1, platelet count 190, sodium 132, BUN 25, creatinine 1.45 which is increased from yesterday. Mag 1.8, AST 29, ALT 79, total protein 5.5. 08/01/2021 Patient is seen and evaluated in the ICU currently awaiting a bed on the selective unit with multiple medical consultations following. Patient continues with some lower extremity edema and maintained on IV lasix twice daily. Chest xray shows some improving right basilar aeration and similar mild cardiomegaly along with small left effusion with adjacent atelectasis and or consolidation. Patient is currently 95% on room air and denies any shortness of breath. Blood sugars mildly elevated and maintained on sliding scale and will likely require insulin on discharge. 08/02/2021 Patient is seen this morning in follow-up continues to have buttock pain and has been offloading and using a doughnut pillow and strongly encourage the patient to increase activity and maintain offloading pressure to the coccyx region and continuing with current local wound care. Patient's blood sugars have been slightly elevated and will resume metformin he takes 1000 mg twice daily and will add low-dose glyburide his hemoglobin A1c was 8.6. Discussed with the patient about strict glycemic control and monitoring blood sugars before meals and at bedtime and more frequently if feeling hyper or hypoglycemic. Patient al so strongly encouraged to follow-up with primary care provider and discuss possible initiation of insulin. Also stressed the importance of protein and diet restrictions. Patient with lower extremity edema which appears to be improving and encourage the patient to elevate lower extremities while at rest and continue with compression stockings to bilateral lower extremities. Again encouraged the importance of increasing activity as tolerated and get up and walking more often. Chest x-ray today shows left lower lobe infiltrate or atelectasis persists with small effusion. Patient will likely continue on Lasix oral in the outpatient setting Labs: WBC is 5.2, hemoglobin is 10.7, platelets are 232, sodium is 128, potassium 4.0, BUN 26, creatinine 1.49, calcium 8.3 Review of systems: Constitutional: No reports of fatigue, fever, or chills Cardiovascular: No reports of chest pain or palpitations Respiratory: No reports of shortness of breath or cough GI: No reports of nausea, vomiting, improvement in diarrhea : No reports of dysuria or retention Neurovascular: reports of generalized weakness, reports moving better and working with physical therapy daily. All medications have been reviewed Active Medications Acetaminophen (Acetaminophen Tab 325 Mg Tab) 650 mg PO Q6HR PRN PRN Reason: Fever and/ or Pain Last Admin: 07/29/21 21:25 Dose: 650 mg Documented by: Albuterol/Ipratropium (Ipratropium-Albuterol 3 Ml Neb) 3 ml INHALATION RT-Q2H PRN PRN Reason: Shortness Of Breath Or Wheezing Last Admin: 07/22/21 22:23 Dose: 3 ml Documented by: Albuterol/Ipratropium (Ipratropium-Albuterol 3 Ml Neb) 3 ml INHALATION RT-QID [facility] Last Admin: 08/02/21 11:04 Dose: 3 ml Documented by: Amiodarone HCl (Amiodarone 200 Mg Tab) 200 mg PO BID [facility] Last Admin: 08/02/21 08:50 Dose: 200 mg Documented by: Apixaban (Apixaban 5 Mg Tab) 5 mg PO BID [facility]; Protocol Last Admin: 08/02/21 08:50 Dose: 5 mg Documented by: Aspirin (Aspirin 81 Mg) 81 mg PO DAILY [facility] Last Admin: 08/02/21 08:50 Dose: 81 mg Documented by: Atorvastatin Calcium (Atorvastatin 40 Mg Tab) 40 mg PO DAILY [facility] Last Admin: 08/02/21 08:50 Dose: 40 mg Documented by: Bisacodyl (Bisacodyl 10 Mg Supp) 10 mg RECTAL DAILY PRN PRN Reason: Constipation Last Admin: 07/25/21 13:55 Dose: 10 mg Documented by: Darbepoetin Zac (Darbepoetin Zac 40 Mcg/0.4 Ml Syringe) 40 mcg SQ Q7D [facility] Last Admin: 07/26/21 11:59 Dose: 40 mcg Documented by: Furosemide (Furosemide 10 Mg/Ml 2 Ml Vial) 20 mg IV Q12HR [facility] Last Admin: 08/02/21 08:50 Dose: 20 mg Documented by: Insulin Aspart (Insulin Aspart (Novolog) 100 Unit/Ml Vial) 0 unit SQ [id number] [facility]; Protocol Last Admin: 08/02/21 06:49 Dose: 1 unit Documented by: Magnesium Hydroxide (Magnesium Hydroxide 2,400 Mg/10 Ml Cup) 2,400 mg PO BID PRN PRN Reason: Constipation Metformin HCl (Metformin 500 Mg Tab) 1,000 mg PO BID-W/MEALS [facility] Last Admin: 08/02/21 10:17 Dose: 1,000 mg Documented by: Metoprolol Tartrate (Metoprolol Tartrate 12.5 Mg Tab) 12.5 mg PO BID [facility] Last Admin: 08/02/21 08:50 Dose: 12.5 mg Documented by: Midodrine (Midodrine 5 Mg Tab) 5 mg PO AC-TID [facility] Last Admin: 08/02/21 06:52 Dose: 5 mg Documented by: Miscellaneous Information (Magnesium Replacement Protocol 1 Each Misc) 1 each MISCELLANE DAILY PRN; Protocol PRN Reason: Per Protocol Miscellaneous Information (Phosphorus Replacement Protoco 1 Each Misc) 1 each MISCELLANE DAILY PRN; Protocol PRN Reason: Per Protocol Miscellaneous Information (Potassium Replacement Protocol 1 Each Misc) 1 each MISCELLANE DAILY PRN; Protocol PRN Reason: Per Protocol Miscellaneous Information (Potassium Replacement Protocol 1 Each Misc) 1 each MISCELLANE DAILY PRN; Protocol PRN Reason: Per Protocol Ondansetron HCl (Ondansetron 4 Mg/2 Ml Vial) 4 mg IVP Q6HR PRN PRN Reason: Nausea And Vomiting Pantoprazole Sodium (Pantoprazole 40 Mg Tablet) 40 mg PO AC-BRKFST [facility] Last Admin: 08/02/21 06:49 Dose: 40 mg Documented by: Potassium Bicarbonate (Potassium Bicarbonate/Cit Ac 20 Meq Tablet.Eff) 40 meq PO DAILY [facility] Last Admin: 08/02/21 08:50 Dose: 40 meq Documented by: Senna/Docusate Sodium (Sennosides-Docusate Sodium 1 Each Tab) 2 each PO HS PRN PRN Reason: Constipation Sodium Chloride (Sodium Chloride 0.9% Flush 10 Ml Syringe) 10 ml IV BID [facility] Last Admin: 08/02/21 10:12 Dose: Not Given Documented by: Physical exam: GENERAL: The patient is alert and oriented x3, not in any acute distress. Well developed, well nourished. HEENT: Pupils are round and equally reacting to light. EOMI. No scleral icterus. No conjunctival pallor. Normocephalic, atraumatic. No pharyngeal erythema. No thyromegaly. CARDIOVASCULAR: S1 and S2 present. No murmurs, rubs, or gallops. PULMONARY: Chest is clear to auscultation, no wheezing ABDOMEN: Soft, nontender, nondistended, normoactive bowel sounds. No palpable organomegaly. MUSCULOSKELETAL: No joint swelling or deformity. EXTREMITIES: No cyanosis, clubbing, . Bilateral generalized leg edema with improvement. NEUROLOGICAL: Gross neurological examination did not reveal any focal deficits. SKIN: No rashes. No petechiae Assessment: severe triple coronary artery disease, status post multiple vessel CABG Severe aortic stenosis status post aortic valve replacement Acute systolic heart failure, ischemic cardiomyopathy is suspected with ejection fraction of 30-35%, now with an EF of 50-55% s/p CABG. First degree heart block with episodes of second degree complete heart block, cardiology following and continued on current medication regimen Stage II pressure ulcer to coccyx as reported by nursing documentation, present on admission NSTEMI Acute kidney injury, suspected secondary to diuresis. And also possibly due to his chronic kidney disease stage III, improving Hypotension requiring pressors postoperatively, patient is off pressors, improved Postoperative anemia requiring 1 unit of blood transfusion, hemoglobin has stabilized Sore throat, improved, coronavirus is negative Hyponatremia Diabetes mellitus, With hyperglycemia upon admission . Hemoglobin A1c is 8.6% Paroxysmal atrial fibrillation preoperative and postoperative, patient is on an oral amiodarone taper managed by primary Hypertension Hyperlipidemia GI prophylaxis DVT prophylaxis full code Plan: This is a pleasant 75 years old male who presented with possible acute CHF and high troponin. N-stemi and underwent CABG on 07/22. Continue to monitor blood pressure, off pressor support. 2d echo ordered and EF is improved at 50-55%, patient continues with pacer wires that are now grounded and no plans for pacer. Patient is scheduled for discharge today. Continue with aspirin and Plavix, Eliquis Recommend Accu-Cheks before meals at bedtime and monitoring glucose while keeping the patient on metformin 1000 mg twice a day and will add low-dose glyburide and strongly recommend outpatient follow-up with primary care provider to discuss current medication regimen along with the necessity of possibly requiring insulin due to the hemoglobin A1c being 8.6. Discussed with patient a bout tight glycemic control and encourage the patient to continue to monitor Accu-Cheks before meals and at bedtime and keep a diary for primary care follow- up Multiple medical consultations following and patient will have close outpatient follow-ups with them which are scheduled. Monitor hemoglobin, hemoglobin is stable at 10.7 Patient continues with loose stool although improving and has imodium as needed. Cdiff testing was negative. Patient continued with bilateral lower extremity edema and is maintained on IV Lasix BID. Encouraged the patient to continue with compression stockings, incre asing activity as tolerated, and elevating lower extremities while at rest. Will continue to follow along closely with CT surgery during hospitalization Prognosis is guarded Plan is for discharge today and arrangements are being made with CT surgery and follow-up appointments. Objective - Vital Signs Vital signs: Vital Signs Temp 98.2 F 08/02/21 03:21 Pulse 70 08/02/21 07:31 Resp 18 08/02/21 03:21 BP 98/60 08/02/21 03:21 Pulse Ox 94 L 08/02/21 03:21 Intake & Output 08/01/21 08/02/21 08/02/21 18:59 06:59 18:59 Intake Total 680 600 Output Total 800 750 Balance -120 -150 Weight 98.2 kg Intake: IV 200 Magnesium Sulfate-D5w Pmx 200 1 gm In Dextrose/Water 1 100ml.bag @ 100 mls/hr IVPB Q1H [facility] Rx#: [id number] Oral 480 600 Output: Urine 800 750 Other: Voiding Method Urinal Urinal # Voids 0 1 # Bowel Movements 1 1 ABP, PAP, CO, CI - Last Documented Arterial Blood Pressure 98/36 Pulmonary Artery Pressure 31/16 Cardiac Output 4.6 Cardiac Index 2.2 - Labs CBC & Chem 7: 08/02/21 07:44 08/02/21 07:44 Labs: Abnormal Lab Results - Last 24 Hours (Table) 08/01/21 08/01/21 08/01/21 Range/Units 11:34 16:38 20:36 RBC (4.30-5.90) m/uL Hgb (13.0-17.5) gm/dL Hct (39.0-53.0) % MCV (80.0-100.0) fL RDW (11.5-15.5) % Sodium (137-145) mmol/L Chloride (98-107) mmol/L BUN (9-20) mg/dL Creatinine (0.66-1.25) mg/dL Glucose (74-99) mg/dL POC Glucose (mg/dL) 212 H 203 H 184 H (75-99) mg/dL Calcium (8.4-10.2) mg/dL Total Bilirubin (0.2-1.3) mg/dL ALT (4-49) U/L Total Protein (6.3-8.2) g/dL Albumin (3.5-5.0) g/dL 08/02/21 08/02/21 08/02/21 Range/Units 01:35 06:43 07:44 RBC 3.34 L (4.30-5.90) m/uL Hgb 10.7 L (13.0-17.5) gm/dL Hct 34.1 L (39.0-53.0) % MCV 102.3 H (80.0-100.0) fL RDW 17.1 H (11.5-15.5) % Sodium (137-145) mmol/L Chloride (98-107) mmol/L BUN (9-20) mg/dL Creatinine (0.66-1.25) mg/dL Glucose (74-99) mg/dL POC Glucose (mg/dL) 135 H 132 H (75-99) mg/dL Calcium (8.4-10.2) mg/dL Total Bilirubin (0.2-1.3) mg/dL ALT (4-49) U/L Total Protein (6.3-8.2) g/dL Albumin (3.5-5.0) g/dL 08/02/21 Range/Units 07:44 RBC (4.30-5.90) m/uL Hgb (13.0-17.5) gm/dL Hct (39.0-53.0) % MCV (80.0-100.0) fL RDW (11.5-15.5) % Sodium 128 L (137-145) mmol/L Chloride 95 L (98-107) mmol/L BUN 26 H (9-20) mg/dL Creatinine 1.49 H (0.66-1.25) mg/dL Glucose 212 H (74-99) mg/dL POC Glucose (mg/dL) (75-99) mg/dL Calcium 8.3 L (8.4-10.2) mg/dL Total Bilirubin 1.7 H (0.2-1.3) mg/dL ALT 58 H (4-49) U/L Total Protein 6.2 L (6.3-8.2) g/dL Albumin 3.4 L (3.5-5.0) g/dL
[2021-08-02 12:02] LABS: Glucose,Whole Blood 188 mg/dL (75-99)
[2021-08-02] MEDS: DARBEPOETIN ALFA 40 MCG/0.4 ML SYRINGE SQ SCH (12:14)
--- NOTE | 2021-08-02 12:24 | P.PN ---
Subjective Progress Note Date: 08/02/21 HISTORY OF PRESENT ILLNESS: Patient is s/p CABG and aortic valve replacement. Patient has been transferred out of the ICU to the cardiac stepdown unit. He denies chest pain or pressure. Denies SOB. Reports discomfort to his coccyx. Telemetry reveals sinus mechanism. PHYSICAL EXAM: VITAL SIGNS: Reviewed. GENERAL: Well-developed in no acute distress. NECK: Supple. No JVD or thyromegaly LUNGS: Respirations even and unlabored. Lungs diminished, left greater than right HEART: Regular rate and rhythm. S1 and S2 heard. EXTREMITIES: Normal range of motion. No clubbing or cyanosis. Peripheral pulses intact. No lower extremity edema ASSESSMENT: Non-STEMI Coronary artery disease, s/p CABG x 3 Aortic stenosis, s/p bioprosthetic aortic valve replacement Hypertension Hyperlipidemia Diabetes Paroxysmal atrial fibrillation Elevated LFTs PLAN: Continue postoperative management per CTS Continue current cardiac medications Continue anticoagulation with Eliquis Increase activity as tolerated Continue use of incentive spirometer IV lasix per nephrology Further recommendations pending patient course Nurse practitioner note has been reviewed by physician. Signing provider agrees with the documented findings, assessment, and plan of care. Objective - Vital Signs Vital signs: Vital Signs Temp 98.0 F 08/02/21 08:00 Pulse 68 08/02/21 11:11 Resp 18 08/02/21 08:00 BP 112/62 08/02/21 08:00 Pulse Ox 93 L 08/02/21 08:00 Intake & Output 08/01/21 08/02/21 08/02/21 18:59 06:59 18:59 Intake Total 680 600 Output Total 800 750 Balance -120 -150 Weight 98.2 kg Intake: IV 200 Magnesium Sulfate-D5w Pmx 200 1 gm In Dextrose/Water 1 100ml.bag @ 100 mls/hr IVPB Q1H [facility] Rx#: [id number] Oral 480 600 Output: Urine 800 750 Other: Voiding Method Urinal Urinal Urinal # Voids 0 1 1 # Bowel Movements 1 1 ABP, PAP, CO, CI - Last Documented Arterial Blood Pressure 98/36 Pulmonary Artery Pressure 31/16 Cardiac Output 4.6 Cardiac Index 2.2 - Labs CBC & Chem 7: 08/02/21 07:44 08/02/21 07:44 Labs: Abnormal Lab Results - Last 24 Hours (Table) 08/01/21 08/01/2122 Range/Units 16:38 20:36 01:35 RBC (4.30-5.90) m/uL Hgb (13.0-17.5) gm/dL Hct (39.0-53.0) % MCV (80.0-100.0) fL RDW (11.5-15.5) % Sodium (137-145) mmol/L Chloride (98-107) mmol/L BUN (9-20) mg/dL Creatinine (0.66-1.25) mg/dL Glucose (74-99) mg/dL POC Glucose (mg/dL) 203 H 184 H 135 H (75-99) mg/dL Calcium (8.4-10.2) mg/dL Total Bilirubin (0.2-1.3) mg/dL ALT (4-49) U/L Total Protein (6.3-8.2) g/dL Albumin (3.5-5.0) g/dL 08/02/21 08/02/21 08/02/21 Range/Units 06:43 07:44 07:44 RBC 3.34 L (4.30-5.90) m/uL Hgb 10.7 L (13.0-17.5) gm/dL Hct 34.1 L (39.0-53.0) % MCV 102.3 H (80.0-100.0) fL RDW 17.1 H (11.5-15.5) % Sodium 128 L (137-145) mmol/L Chloride 95 L (98-107) mmol/L BUN 26 H (9-20) mg/dL Creatinine 1.49 H (0.66-1.25) mg/dL Glucose 212 H (74-99) mg/dL POC Glucose (mg/dL) 132 H (75-99) mg/dL Calcium 8.3 L (8.4-10.2) mg/dL Total Bilirubin 1.7 H (0.2-1.3) mg/dL ALT 58 H (4-49) U/L Total Protein 6.2 L (6.3-8.2) g/dL Albumin 3.4 L (3.5-5.0) g/dL 08/02/21 Range/Units 11:46 RBC (4.30-5.90) m/uL Hgb (13.0-17.5) gm/dL Hct (39.0-53.0) % MCV (80.0-100.0) fL RDW (11.5-15.5) % Sodium (137-145) mmol/L Chloride (98-107) mmol/L BUN (9-20) mg/dL Creatinine (0.66-1.25) mg/dL Glucose (74-99) mg/dL POC Glucose (mg/dL) 188 H (75-99) mg/dL Calcium (8.4-10.2) mg/dL Total Bilirubin (0.2-1.3) mg/dL ALT (4-49) U/L Total Protein (6.3-8.2) g/dL Albumin (3.5-5.0) g/dL
--- NOTE | 2021-08-02 12:29 | P.PN ---
Subjective Progress Note Date: 08/02/21 On 07/22/2021, patient is seen in intensive care unit following his surgery, patient had a aortic valve replacement with the #23 is parous pericardial bioprosthetic valve, and a three-vessel coronary artery bypass grafting with BAIN to the LAD, SVG to the OM 2 and OM 3, left atrial appendage ligation. Tomasz lopez just arrived to the intensive care unit, intubated, and sedated, on assist-control mode of ventilation with a rate of 16, tidal volume of 500 FiO2 of sent and PEEP of 10. She is currently on 0.9 normal saline at a rate of 50 ML per hour, he is on norepinephrine at 9 mics per minute, vasopressin at 0.02 units/min, primacore at 0.3 mics per kilo per minute, Diprivan and is at 10 mics per kilo per minute. Hemodynamically patient is currently being paced at AAI mode with a rate of 80. Currently blood pressure is 139/48, PA pressures 31/20, CVP is 14, cardiac output is 4.2, cardiac index is 2.0. Patient has 4 chest tubes and mediastinal, 1 right pleural and one left pleural chest tubes, mediastinal chest tubes are connected to the same Pleur-evac, and there is 200 mL of serosanguineous output, left pleural chest tube has 140 mL of sanguinous output and a chest tube with 140 mL of sanguinous output. No air leak. Catheter is in place, and patient is making adequate urine output. Chest x-ray has been reviewed, tube to low intermittent suction. The patient is seen today 07/23/2021 in follow-up in the intensive care unit. This is postoperative day #1 of a triple vessel coronary artery bypass grafting using the BAIN to the LAD, reverse saphenous vein graft to the second obtuse marginal, third obtuse marginal. Aortic valve replacement using a 23 mm pericardial bioprosthetic Inspiris. He was successfully extubated at 10:15 last evening. Currently on 4 L high flow nasal cannula to maintain O2 saturation in the mid 90s. Chest x-ray showing interval development of mild pulmonary vascular congestion and a probable small bilateral effusions. He is sitting up in a chair at the bedside. He is arousable. He drifts off easily. He is oriented 1 to person. Somewhat slow to respond. Very weak. He did have hypotension postoperatively with some acute blood loss anemia. His ejection fraction is 30-35%. He is currently requiring norepinephrine at 0.14 g per kilogram per minute. He is on vasopressin at 0.03 units per minute. Primacor at 0.03 mcg/kg/m. Right IJ Cordis and Maskell skin catheter in place. Current cardiac output 4.6. Cardiac index 2.2. PA pressures 39/15 with a CVP of 14. He is on insulin drip at 4 units per hour. 0.9% normal saline at 50 MLS per hour. He is currently in an atrial paced rhythm at 80 bpm. Pacer wires in place. Mediastinal, right and left pleural chest tubes remain in place. Urine output is adequate. White count 6.3. Hemoglobin 7.3. Platelets 108. Sodium 136. Potassium 5.0. Bicarb 20. BUN 22. Creatinine 1.62. Blood glucose 127. AST 568. ALT 343. Arterial blood gases revealed a pO2 of 84, P CO2 of 30 and a pH of 7.43. He is continued on heparin subcu for DVT prophylaxis. Protonix for GI prophylaxis. On 07/24/2021, the patient is sitting up on a chair. He is postop day #2 following coronary artery bypass surgery and aortic valve replacement. The patient was extubated and he is currently on oxygen by nasal cannula at 2 L. They did use BiPAP on and off post extubation. He was briefly placed on BiPAP yesterday and currently is on 2 L of oxygen by nasal cannula. He is using incentive spirometer. He is weak. His still lethargic. He is not confused. He is moving all 4 extremities without any limitation. The chest x-ray from today is showing adequate expansion of both lungs. Chest tubes are still in place. Some atelectatic changes in the lung bases bilaterally. No evidence of any pneumothorax. Maskell-Adalberto catheter remains in a good location. Meanwhile, the patient remains on a combination of inotropes. He is on milrinone running at 0.3 back to respiratory kilogram per minute and he is also on vasopressin at 0.02 units an hour/minutes and he is also on norepinephrine infusion at 0.04 mcg/kg per minute. His cardiac output is at 4.2 with an index of 2. Pulmonary artery pressures of 43/22. Chest tubes are in place. The patient has 2 mediastinal and 1 left pleural chest tube. Output was noted. The output is in order of less than 100 mL over the past shift and there is no evidence of any air leak. The patient's cardiac rhythm is a atrial fibrillation, slightly tachycardic and the patient is going to be started on amiodarone drip. In terms of his other work, the patient had developed an acute kidney injury. Creatinine was up to 1.6. Today's creatinine is still at 1.6 with a BUN of 26. Sodium is at 140, potassium is at 4.6. White cell count is at 7.3 with a hemoglobin of 9.1 and platelet count of 85. Liver function tests are on the rise. ALT is up to 1133 and AST is up to 497. Insulin drip is still running at the rate of 5 units an hour. On 07/25/2021 patient seen in follow-up in the intensive care unit. Today is postoperative day #3, status post aortic valve replacement surgery, and three- vessel coronary artery bypass grafting with a BAIN to the LAD, SVG to the OM 2 and OM 3 and the left atrial appendage ligation. Patient is awake and alert, he is currently up in the recliner, he is mildly short of breath, does not appear to be in acute distress, he did wear BiPAP support during the day yesterday, and last night with pressures of 12 and 5 and FiO2 of 40%. He is currently on 2 L of oxygen. He remains on multiple drips including epinephrine at 0.02 mics per kilo per minute, milrinone remains a 0.4 mics per kilo per minute, amiodarone is a 0.5 mg/m, norepinephrine at 0.05 mics per kilo per minute, 0.9 normal saline at 50 ML per hour, vasopressin at 0.03 units per kilo per hour, and he is currently receiving a blood transfusion which is infusing at 200 mL on hour. His A. fib is currently slightly better controlled although he still mildly tachycardic at rate of 116 BPM, his blood pressure is 121/55, his PA pressure is 41/23, his CVP is 18, his cardiac output is 5.5 and cardiac index is 2.6. His been afebrile, today's chest x-ray has been reviewed showing persistent cardiomegaly with left greater than right bibasilar infiltrates and/or atelectasis and small left pleural effusion without significant change from one day earlier. He is awake and alert, oriented 3, he is answering to questions appropriately, he is still having some surgical incisional discomfort, his pain rating is 6 out of 10. On oral medications for pain control, incentive spirometry effort is 750 mL. Urine output is in the order of 10-30 ML per hour. Today's labs have been reviewed why blood cell count is 10.0, hemoglobin is 10.2, sodium is 134, potassium is 5.1, chloride is 108, CO2 is 13, anion gap was 13, BUN is 41, creatinine is 1.72, lactic acid today was 3.2, calcium was 8.2, total bilirubin was 2.1, AST was 571, ALT was 497, LFTs are improved. On 07/26/2021 patient is seen in follow-up in intensive care unit, he is awake and alert, in no acute distress, he is currently sitting up in the recliner, breathing comfortably, he is on 2 L of oxygen, he did wear BiPAP support overnight with pressures of 12 and 5 and FiO2 of 35%, and his pulse ox has been in the high 90s between 97-98%, patient has been afebrile, denies worsening dyspnea, his incentive spirometry effort is 750 ML. His right-sided chest tube has been removed, and mediastinal chest tubes have been removed, he only has one left pleural chest tube left in place. There has been 200 mL out of the left pleural chest tube in the last 24 hours. Today's chest x-ray shows cardiomegaly, and stable left lower lobe infiltrate, stable in appearance. Patient remains on vasopressors and inotropes, however vasopressin has been discontinued, and epinephrine drip has been discontinued, patient is currently on norepinephrine at 0.04 mics per kilo per minute which is less than he was on yesterday, and Primacor has also been decreased down to 0.3 mics per kilo per minute, his 0.9 normal saline at a rate of 25 ML per hour, he was given amiodarone bolus this morning, his drip has been discontinued, and patient has been switched to oral amiodarone. He was started on Arixtra for anti- coagulation. He remains in atrial fibrillation with the better controlled rate at 98 BPM. His cardiac output this morning is 4.1, and cardiac index is 1.9. His CVP is 7, his blood pressure is 95/44, his PA pressures 27/15. Patient received a dose of IV Lasix yesterday per nephrology and a history of urine output in the last 24 hours was 1360, however overall he is in positive net fluid balance of 2.2 L over the last 24 hours. Mild swelling in his upper and lower extremities. His creatinine is fairly stable, slightly improved, nephrology is following. On 07/28/2021 patient seen in follow-up in the intensive care unit, he is awake and alert, oriented 3, he sitting up in the recliner, breathing very comfortably, he is currently on room air, with pulse ox of 96-97%, he modynamically stable, he is on small amount of Primacor which is being weaned off, and is currently infusing at 0.2 mics per kilo per minute, norepinephrine drip has been discontinued, vasopressin and epinephrine drips have both been discontinued the day before yesterday, patient has converted to sinus mechanism and has remained in sinus mechanism, currently still pacing at a rate of 80 BPM, hemodynamically he has been stable, his latest cardiac output is 4.6, cardiac index is 2.2, his Maskell-Adalberto catheter will be discontinued today. Full catheter is in place, he is making urine in the order of 40-80 ML per hour. Room air pulse ox is 96-97%, hemodynamically stable, afebrile, his incentive spirometer effort is better today, he is up to a liter on it today compared to 750 on yesterday's exam. His left-sided chest tube remains in place, today's chest x- ray showing persistent cardiomegaly with left greater than right basilar infiltrates and/or atelectasis and small bilateral pleural effusions without significant change compared to yesterday. Today's labs have been reviewed, white blood cell count is 6.2, hemoglobin is 9.5, sodium is 133, potassium is 3.7, chloride is 104, CO2 is 24, BUN of 39, creatinine is 1.2 AST 63, ALT is 193, alkaline phosphatase 72. No nausea vomiting, tolerating oral intake, patient had bowel movements, overall he states he is feeling better, appears to be much more awake and alert, and responsive. He received another dose of IV Lasix today per CT surgery. His been getting intermittent doses of diuretics, over the last 24 hours she is in -1.5 L net fluid balance. Generalized edema is improved. On 07/29/2021 patient seen in follow-up in intensive care unit, patient is awake and alert, in no acute distress. Today is postoperative day #7, status post aortic valve replacement surgery, and three-vessel coronary artery bypass grafting. Patient is breathing comfortably, he is currently on room air and his pulse ox is 96%, hemodynamically patient is stable, he remains on very small dose of Primacor which is currently at 0.1 mics per kilo per minute, no other drips, 0.9 normal saline at rate of 20 ML per hour, he is in sinus mechanism and has remained in sinus mechanism since yesterday with a rate of 67, he is not being paced anymore, and his pacemaker is at VVI backup of 50 BPM. Blood pressure stable 117/84. Did not require BiPAP support overnight, his chest x- ray today showing persistent cardiomegaly with left greater than right bibasilar infiltrates and/or atelectasis and small bilateral pleural effusions. Patient was given a dose of IV Lasix per CT surgery of 40 mg 1 IV push. He is sitting up in the recliner, denies any acute distress, he is working on incentive spirometer, Nava catheter has been discontinued, he is been avoiding. Chest tubes have been discontinued. Today's labs have been reviewed, his white blood cell count is 5.1, hemoglobin is 9.7, sodium is 133, potassium 3.8, chloride is 105, CO2 is 25, BUN is 33, creatinine is 1.3. His LFTs are recovering, his AST is 49, ALT is 1:30, and alk phos is 69. Patient has been receiving intermittent doses of diuretics, he is in -1.3 L net fluid balance over the last 24 hours. His surgical incisions are clean dry and intact. On 08/01/2021 patient seen in follow-up in intensive care unit, today is postoperative day number 10 status post aortic valve replacement surgery, and three-vessel coronary artery bypass grafting. Patient is awake and alert, in no acute distress, room air pulse ox is 96%. Breathing comfortably, sitting up in the recliner, he is awake and alert, oriented 3, denies any specific complaints, his IV fluids have been hep-locked, he is in sinus mechanism with a controlled rate. Today's chest x-ray has been reviewed showing improving right basilar aeration, mild cardiomegaly with small left pleural effusion and adjacent atelectasis. Today's labs have been reviewed, white blood cell count is 5.8, hemoglobin is 10.2, platelet count is 222, sodium is 134 quadrants electrolytes were unremarkable, BUN is 27, creatinine is 1.25. On 08/02/2021 patient seen in follow-up on selective care unit, patient is awake and alert, in no acute distress, breathing comfortably, he took his shower today, tolerated activity very well, his been tolerating ambulation, room air pulse ox is 93%. Chest tubes in all catheters have been discontinued. His surgical incisions are clean dry and intact. Vital signs have been stable, no acute issues overnight, today's chest x-ray has been reviewed, showing left lower lobe infiltrate or atelectasis with small pleural effusion. Today's labs have been reviewed, white blood cell count is 5.2, hemoglobin is 10.7, sodium is 128, potassium is 4.0, chloride is 95, B1 is 26, creatinine is 1.49. Patient continues on Eliquis for paroxysmal atrial fibrillation, he continues on IV Lasix per nephrology, he is maintaining negative fluid balance. Objective - Vital Signs Vital signs: Vital Signs Temp 98.0 F 08/02/21 08:00 Pulse 68 08/02/21 11:11 Resp 18 08/02/21 08:00 BP 112/62 08/02/21 08:00 Pulse Ox 93 L 08/02/21 08:00 Intake & Output 08/01/21 08/02/21 08/02/21 18:59 06:59 18:59 Intake Total 680 600 Output Total 800 750 Balance -120 -150 Weight 98.2 kg Intake: IV 200 Magnesium Sulfate-D5w Pmx 200 1 gm In Dextrose/Water 1 100ml.bag @ 100 mls/hr IVPB Q1H BISHOP Rx#: [id number] Oral 480 600 Output: Urine 800 750 Other: Voiding Method Urinal Urinal Urinal # Voids 0 1 1 # Bowel Movements 1 1 ABP, PAP, CO, CI - Last Documented Arterial Blood Pressure 98/36 Pulmonary Artery Pressure 31/16 Cardiac Output 4.6 Cardiac Index 2.2 - Exam GENERAL EXAM: Awake and alert, mild short of breath, 75-year-old white gentleman, on room air with a pulse ox of 93% sitting in the recliner. patient did not require BiPAP support last night, his dyspnea seems to have improved, patient is breathing more comfortably on today's exam HEAD: Normocephalic/atraumatic. EYES: Normal reaction of pupils, equal size. Conjunctiva pink, sclera white. NOSE: Clear with pink turbinates. THROAT: No erythema or exudates. NECK: No masses, no JVD, no thyroid enlargement, no adenopathy. CHEST: No chest wall deformity. Symmetrical expansion. 2 chest tubes, 2 MS chest tubes have been discontinued, right pleural chest tube has been discontinued and left pleural chest tubes was also discontinued on 07/28/2021 LUNGS: Equal air entry with no crackles, wheeze, rhonchi or dullness. CVS: Regular rate and rhythm, normal S1 and S2, no gallops, no murmurs, no rubs ABDOMEN: Soft, nontender. No hepatosplenomegaly, normal bowel sounds, no guarding or rigidity. EXTREMITIES: No clubbing, mild edema in upper and lower extremities, no cyanosis, 2+ pulses and upper and lower extremities. MUSCULOSKELETAL: Muscle strength and tone normal. SPINE: No scoliosis or deformity SKIN: No rashes CENTRAL NERVOUS SYSTEM: awake and oriented 3 No focal deficits, tone is normal in all 4 extremities. - Labs CBC & Chem 7: 08/02/21 07:44 08/02/21 07:44 Labs: Abnormal Lab Results - Last 24 Hours (Table) 08/01/21 08/01/21 08/02/21 Range/Units 16:38 20:36 01:35 RBC (4.30-5.90) m/uL Hgb (13.0-17.5) gm/dL Hct (39.0-53.0) % MCV (80.0-100.0) fL RDW (11.5-15.5) % Sodium (137-145) mmol/L Chloride (98-107) mmol/L BUN (9-20) mg/dL Creatinine (0.66-1.25) mg/dL Glucose (74-99) mg/dL POC Glucose (mg/dL) 203 H 184 H 135 H (75-99) mg/dL Calcium (8.4-10.2) mg/dL Total Bilirubin (0.2-1.3) mg/dL ALT (4-49) U/L Total Protein (6.3-8.2) g/dL Albumin (3.5-5.0) g/dL 08/02/21 08/02/21 08/02/21 Range/Units 06:43 07:44 07:44 RBC 3.34 L (4.30-5.90) m/uL Hgb 10.7 L (13.0-17.5) gm/dL Hct 34.1 L (39.0-53.0) % MCV 102.3 H (80.0-100.0) fL RDW 17.1 H (11.5-15.5) % Sodium 128 L (137-145) mmol/L Chloride 95 L (98-107) mmol/L BUN 26 H (9-20) mg/dL Creatinine 1.49 H (0.66-1.25) mg/dL Glucose 212 H (74-99) mg/dL POC Glucose (mg/dL) 132 H (75-99) mg/dL Calcium 8.3 L (8.4-10.2) mg/dL Total Bilirubin 1.7 H (0.2-1.3) mg/dL ALT 58 H (4-49) U/L Total Protein 6.2 L (6.3-8.2) g/dL Albumin 3.4 L (3.5-5.0) g/dL 08/02/21 Range/Units 11:46 RBC (4.30-5.90) m/uL Hgb (13.0-17.5) gm/dL Hct (39.0-53.0) % MCV (80.0-100.0) fL RDW (11.5-15.5) % Sodium (137-145) mmol/L Chloride (98-107) mmol/L BUN (9-20) mg/dL Creatinine (0.66-1.25) mg/dL Glucose (74-99) mg/dL POC Glucose (mg/dL) 188 H (75-99) mg/dL Calcium (8.4-10.2) mg/dL Total Bilirubin (0.2-1.3) mg/dL ALT (4-49) U/L Total Protein (6.3-8.2) g/dL Albumin (3.5-5.0) g/dL Assessment and Plan Plan: Assessment: #1. Acute non-ST segment elevated myocardial infarction and multivessel coronary artery disease and severe aortic valve stenosis, status post three- vessel coronary artery bypass grafting with BAIN to the LAD, SVG to the OM 2 and OM 3, and aortic valve replacement on 07/22/2021, patient remains in the in tensive care unit, today it is postoperative day #3 on 07/25/2021, continues on multiple drips and inotropes for hemodynamic support. Cardiac output and index are improved on multiple drips and inotropes. Patient has developed an acute kidney injury and shock liver, requiring lnorepinephrine, epinephrine, milrinone and vasopressin. Currently improved, patient is off all vasopressors and inotropes #2. Routine postoperative ventilator management, patient was successfully weaned and extubated on postoperative day #0, currently requiring on and off BiPAP support and nasal cannula with 2 L of oxygen and chest x-ray showing cardiomegaly with left greater than right bibasilar infiltrates and atelectasis small left pleural effusion. 07/29/2021 patient is improving, currently on room air, not requiring BiPAP support, breathing more comfortably, chest x-ray continues to show bibasilar atelectasis, and small pleural effusions, has been receiving intermittent doses of diuretics #3. Acute systolic congestive heart failure with an ejection fraction of 30- 35%. His preop CT chest showed bilateral pleural effusions with cardiomegaly #4. Hypotension, multifactorial, related to postoperative bleeding, and poor ejection fraction, improved. Off all inoptropes and vasopressors #5. Acute hypoxic respiratory failure secondary to pulmonary edema. His preop FEV1 was 72% of predicted. Patient was successfully weaned and extubated on postoperative day #0, was on BiPAP support for a day or twp, currently on room air #6. Hypertension #7. Hyperlipidemia #8. Diabetes mellitus type 2 #9. Acute kidney injury likely cardiorenal and related to ATN, currently improved #10. Shock liver, improving #11. Acute blood loss anemia, expected outcome of surgery, patient has received 3 units of packed red blood cells current hemoglobin is 9.5 #12. New onset A. fib with rapid ventricular response currently on oral amio, rate is better controlled, and patient has converted to sinus rhythm on 07/28/2021 Plan: Patient has remained stable, vital signs have been stable Patient is maintaining stable O2 saturations on room air Today's chest x-ray has been reviewed showing small left pleural effusion and adjacent atelectasis Patient is tolerating ambulation He was able to get a shower Remains in sinus mechanism with first-degree AV block Today's labs have been noted Increase activity as tolerated Follow up with Dr. Mathew in the office in 1 week I performed a history & physical examination of the patient and discussed their management with my nurse practitioner, Marilu Jiménez. I reviewed the nurse practitioner's note and agree with the documented findings and plan of care. L lupe sounds are positive for diffuse wheezes throughout the lung martins. The findings and the impression was discussed with the patient. I attest to the documentation by the nurse practitioner. Time with Patient: Less than 30
--- NOTE | 2021-08-02 12:39 | P.PN ---
Subjective Principal diagnosis: Patient is seen for follow-up for acute kidney injury. Renal function has improved. Patient is currently being diuresed for volume overload. He has had good urine output with improvement in volume status. Lasix is currently 20 mg IV every 12 hours. There are plans for possible discharge today No shortness of breath noted. Patient has had good urine output Objective - Vital Signs Vital signs: Vital Signs Temp 98.0 F 08/02/21 08:00 Pulse 68 08/02/21 11:11 Resp 18 08/02/21 08:00 BP 112/62 08/02/21 08:00 Pulse Ox 93 L 08/02/21 08:00 Intake & Output 08/01/21 08/02/21 08/02/21 18:59 06:59 18:59 Intake Total 680 600 Output Total 800 750 Balance -120 -150 Weight 98.2 kg Intake: IV 200 Magnesium Sulfate-D5w Pmx 200 1 gm In Dextrose/Water 1 100ml.bag @ 100 mls/hr IVPB Q1H BISHOP Rx#: [id number] Oral 480 600 Output: Urine 800 750 Other: Voiding Method Urinal Urinal Urinal # Voids 0 1 1 # Bowel Movements 1 1 ABP, PAP, CO, CI - Last Documented Arterial Blood Pressure 98/36 Pulmonary Artery Pressure 31/16 Cardiac Output 4.6 Cardiac Index 2.2 - Exam On examination patient is awake comfortable not in any acute distress. He is alert and oriented 3. 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 - Labs CBC & Chem 7: 08/02/21 07:44 08/02/21 07:44 Labs: Abnormal Lab Results - Last 24 Hours (Table) 08/01/21 08/01/21 08/02/21 Range/Units 16:38 20:36 01:35 RBC (4.30-5.90) m/uL Hgb (13.0-17.5) gm/dL Hct (39.0-53.0) % MCV (80.0-100.0) fL RDW (11.5-15.5) % Sodium (137-145) mmol/L Chloride (98-107) mmol/L BUN (9-20) mg/dL Creatinine (0.66-1.25) mg/dL Glucose (74-99) mg/dL POC Glucose (mg/dL) 203 H 184 H 135 H (75-99) mg/dL Calcium (8.4-10.2) mg/dL Total Bilirubin (0.2-1.3) mg/dL ALT (4-49) U/L Total Protein (6.3-8.2) g/dL Albumin (3.5-5.0) g/dL 08/02/21 08/02/21 08/02/21 Range/Units 06:43 07:44 07:44 RBC 3.34 L (4.30-5.90) m/uL Hgb 10.7 L (13.0-17.5) gm/dL Hct 34.1 L (39.0-53.0) % MCV 102.3 H (80.0-100.0) fL RDW 17.1 H (11.5-15.5) % Sodium 128 L (137-145) mmol/L Chloride 95 L (98-107) mmol/L BUN 26 H (9-20) mg/dL Creatinine 1.49 H (0.66-1.25) mg/dL Glucose 212 H (74-99) mg/dL POC Glucose (mg/dL) 132 H (75-99) mg/dL Calcium 8.3 L (8.4-10.2) mg/dL Total Bilirubin 1.7 H (0.2-1.3) mg/dL ALT 58 H (4-49) U/L Total Protein 6.2 L (6.3-8.2) g/dL Albumin 3.4 L (3.5-5.0) g/dL 08/02/21 Range/Units 11:46 RBC (4.30-5.90) m/uL Hgb (13.0-17.5) gm/dL Hct (39.0-53.0) % MCV (80.0-100.0) fL RDW (11.5-15.5) % Sodium (137-145) mmol/L Chloride (98-107) mmol/L BUN (9-20) mg/dL Creatinine (0.66-1.25) mg/dL Glucose (74-99) mg/dL POC Glucose (mg/dL) 188 H (75-99) mg/dL Calcium (8.4-10.2) mg/dL Total Bilirubin (0.2-1.3) mg/dL ALT (4-49) U/L Total Protein (6.3-8.2) g/dL Albumin (3.5-5.0) g/dL Assessment and Plan Assessment: 1. Acute kidney injury ATN post coronary artery bypass surgery. Creatinine is increased to 1.4 today. Patient is maintained on IV Lasix which we can continue until discharge when he can be switched to by mouth Lasix. I would use 40 mg daily for at least 3-4 days and then switch to 20 mg daily with follow-up in about 1 week post discharge 2. CK D stage IIIa secondary to nephrosclerosis baseline creatinine around 1- 1.2 mg/dL 3. A. fib with RVR currently with controlled ventricular response 4. Volume overload currently improved weight is down significantly. 5. Coronary artery disease status post coronary artery bypass surgery 3 6. Hypervolemic hyponatremia currently improving Plan: 1. Can switch to po lasix 40 mg of Lasix by mouth daily for 4 days and then s witch to 20 mg daily subsequently and follow-up as outpatient in about 1-2 weeks' time. Repeat labs in 3-4 days post discharge.
--- NOTE | 2021-08-02 12:46 | P.DS ---
Providers Date of admission: 07/16/21 06:00 Expected date of discharge: 08/02/21 Attending physician: Chris Bingham Consults: 07/16/21 06:00 Consult Physician Routine Consulting Provider: Elda Landis Consult Reason/Comments: chf Do you want consulting provider notified?: Yes 07/17/21 11:21 Consult Physician Urgent Consulting Provider: Benitez Carpenter Consult Reason/Comments: magan Do you want consulting provider notified?: Yes 07/19/21 13:07 Consult Physician Routine Consulting Provider: Keyon Goyal Consult Reason/Comments: CABG evaluation. s/p cardiac catheterization with triple vessel disease Do you want consulting provider notified?: Yes 07/19/21 13:12 Consult Physician Routine Consulting Provider: Odilon Hatfield Consult Reason/Comments: preop cabg clearence Do you want consulting provider notified?: Already Contacted 07/21/21 09:16 Consult to Anesthesia Routine Consulting Provider: Anesthesia,Services Consult Reason/Comments: Cardiac Surgery Pre-Op 07/22/21 16:00 Consult Physician Routine Consulting Provider: Angelia Harry Consult Reason/Comments: med mgmt Do you want consulting provider notified?: Already Contacted Primary care physician: [facility] Course: FINAL DIAGNOSIS: 1. Triple-vessel coronary artery disease, non-STEMI this admission 2. Acute systolic heart failure present on admission, EF 30-35%, improved to 50-55% 3. First-degree heart block, paroxysmal episodes of second-degree and complete heart block this admission 4. Acute kidney injury 5. Elevated CRP, pro-calcitonin on admission 6. Aortic stenosis 7. History of hypertension 8. History of hyperlipidemia, treated, cholesterol 129, LDL 71 9. Ykj-[id number]-[id number] diabetes, hemoglobin A1c 8.6% 10. Never smoker, preoperative FEV1 72% of predicted 11. Family history of heart disease 12. Remains unvaccinated against Covid 13. Preoperative as well as postoperative paroxysmal atrial fibrillation 14. Postoperative acute blood loss anemia, expected 15. Hypotension, multifactorial 16. Transaminitis, resolving 17. Thrombocytopenia, HIT negative, resolved PRINCIPAL PROCEDURE: 1. Triple-vessel coronary artery bypass grafting using the left internal mammary artery to the left anterior descending artery, reverse greater saphenous vein graft from the aorta to the second obtuse marginal artery, reverse greater saphenous vein graft from the aorta to the third obtuse marginal coronary artery 2. Aortic valve replacement using a 23 mm pericardial bioprosthetic Inspiris 3. Bilateral pulmonary vein isolation using bipolar radiofrequency energy from AtriCure 4. Exclusion of the left atrial appendage using a 40 mm AtriClip 5. Intraoperative transesophageal echocardiogram and epi-aortic scanning 6. Graft flow measurements using the Medistim system 7. Endoscopic harvesting of the left greater saphenous vein from ankle to the groin and the right greater saphenous vein from just below the knee to the groin HISTORY OF PRESENT ILLNESS: This is a 75-year-old gentleman who follows on an outpatient basis with the [facility] for primary care. He presented to [facility] emergency room with complaints of dyspnea on exertion, orthopnea, bilateral lower extremity edema, and jaw pain with exertion which was relieved at rest. EKG demonstrated sinus rhythm with first-degree AV block and occasional PVCs. Chest x-ray demonstrated pulmonary edema consistent with heart failure with elevated BNP of 4880. Troponins were elevated and the patient was ruled in for non-STEMI. He was admitted for evaluation and treatment with consultation placed to cardiology. Workup included transthoracic echocardiogram which demonstrated impaired left ventricular systolic function with EF 30-35%, mild aortic stenosis with mean gradient 10 mmHg, aortic valve area 0.8 cm by continuity equation, mild aortic insufficiency, moderate mitral regurgitation, and mild tricuspid regurgitation. Over the next few days he was optimized medically with subsequent heart catheterization which demonstrated triple-vessel coronary artery disease with proximal and mid LAD stenosis 95%, circumflex stenosis 95%, and RCA stenosis 100%. Consultation was placed to Dr. Bingham from cardiothoracic surgery for recommendations which included completing a transesophageal echocardiogram after medical optimization. The mitral valve was found to have mild mitral regurgitation, however the aortic valve demonstrated moderate aortic stenosis. The patient was recommended to undergo coronary artery bypass grafting along with aortic valve replacement. The usual perioperative course was discussed in detail with the patient and his family, all risks and benefits were explained, all questions were answered, and consent was obtained to proceed with surgery. The patient was kept inpatient due to the nature of his disease process. HOSPITAL COURSE: The patient was brought to the preoperative area 07/22/21, prepared in the usual fashion, and subsequently taken to the operating room where Dr. Bingham performed three-vessel CABG along with aortic valve replacement. Upon completion of surgery the patient was transferred to the cardiovascular intensive care unit where he was recovered and monitored hemodynamically. He was extubated, all lines, tubes, and drips were discontinued when appropriate, and he continued to recover slowly. Eventually he was transferred to [facility] cardiac stepdown unit for further monitoring and rehabilitation. His oxygen was titrated down, he continued to work with physical and occupational therapy, he was tolerating oral diet, his pain was controlled, and he was ready to be discharged to home with [facility]idential home care arranged through the [facility] on postoperative day #11. He received written and verbal instruction regarding his medications, activity restrictions, signs and symptoms requiring physician notification, and follow-up appointments. Patient Condition at Discharge: Stable Plan - Discharge Summary Discharge Rx Participant: Yes New Discharge Prescriptions: New Metoprolol Tartrate [Lopressor] 12.5 mg PO BID #60 tab Sennosides-Docusate Sodium [Senokot-S] 2 each PO HS PRN tab PRN Reason: Constipation glyBURIDE [Diabeta] 5 mg PO AC-BID 30 Days #60 tablet Amiodarone [Cordarone] 200 mg PO BID #15 tab Apixaban [Eliquis] 5 mg PO BID #60 tab Atorvastatin [Lipitor] 40 mg PO DAILY #30 tab Potassium Chloride 40 meq PO DAILY #240 ml Midodrine [ProAmatine] 5 mg PO AC-TID #90 tab Pantoprazole [Protonix] 40 mg PO AC-BRKFST #30 tab Acetaminophen Tab [Tylenol] 650 mg PO Q6HR PRN tab PRN Reason: Fever And/ Or Pain Furosemide [Lasix] 40 mg PO DAILY #30 tablet Continue Aspirin 81 mg PO DAILY #30 chewable metFORMIN HCL [Glucophage] 1,000 mg PO BID Discontinued Simvastatin [Zocor] 20 mg PO DAILY HYDROcodone/APAP 10-325MG [Electra 10-325] 1 tab PO BID PRN PRN Reason: Pain lisinopriL [Prinivil] 20 mg PO DAILY Discharge Medication List Aspirin 81 mg PO DAILY #30 chewable 02/06/18 [Rx] metFORMIN HCL [Glucophage] 1,000 mg PO BID 07/16/21 [History] Acetaminophen Tab [Tylenol] 650 mg PO Q6HR PRN tab 08/02/21 [Rx] Amiodarone [Cordarone] 200 mg PO BID #15 tab 08/02/21 [Rx] Apixaban [Eliquis] 5 mg PO BID #60 tab 08/02/21 [Rx] Atorvastatin [Lipitor] 40 mg PO DAILY #30 tab 08/02/21 [Rx] Furosemide [Lasix] 40 mg PO DAILY #30 tablet 08/02/21 [Rx] Metoprolol Tartrate [Lopressor] 12.5 mg PO BID #60 tab 08/02/21 [Rx] Midodrine [ProAmatine] 5 mg PO AC-TID #90 tab 08/02/21 [Rx] Pantoprazole [Protonix] 40 mg PO AC-BRKFST #30 tab 08/02/21 [Rx] Potassium Chloride 40 meq PO DAILY #240 ml 08/02/21 [Rx] Sennosides-Docusate Sodium [Senokot-S] 2 each PO HS PRN tab 08/02/21 [Rx] glyBURIDE [Diabeta] 5 mg PO AC-BID 30 Days #60 tablet 08/02/21 [Rx] Follow up Appointment(s)/Referral(s): Zully Valencia MD [STAFF PHYSICIAN] - 08/10/21 2:00 pm (appointment is with KELSEY Moyer) [facility] ,Cardiac [NON-STAFF] - 4 Weeks (You will receive a phone call in 4-6 weeks for evaluation for cardiac rehab) Chris Bingham MD [STAFF PHYSICIAN] - 08/19/21 10:15 am Zheng Mathews DO [STAFF PHYSICIAN] - 08/15/21 2:30 pm Duyen Mathew NPC [Nurse Practitioner] - 08/23/21 2:45 pm Nando Francois NPC [Nurse Practitioner] - 08/10/21 1:30 pm (To be seen in the surgeon's office behind the hospital in [facility] [place], [address], [address]. Phone number to office is ) [facility] [NON-STAFF] - 1-2 Days (Needs to be seen 24 hours after discharge by RN, then 2-3 times per week for 4 weeks by RN) [facility] [Primary Care Provider] - 08/10/21 9:00 am Ambulatory/Diagnostic Orders: Complete Blood Count w/diff [LAB.AMB] Time Frame: 3 Days, Location: None Selected Comprehensive Metabolic Panel [LAB.AMB] Time Frame: 3 Days, Location: None Selected Activity/Diet/Wound Care/Special Instructions: wound to coccyx pressure stage 2 sacral size optifoam in use DISCHARGE INSTRUCTIONS: 1. No driving for 4 weeks, or until physician gives their ok. 2. The patient should sleep in their own bed, no medical bed needed. 3. Stairs are not an issue. If the bedroom is upstairs, it is advised that the patient go up at night and down in the morning for the first week. Go slowly, using handrail and take 1 step at a time. 4. YOU hose are to be worn for 30 days or until physician discontinues. 5. Heart hugger is to be worn 100% of the time until physician discontinues.(except when showering) 6. No lifting, pushing, or pulling more than 10 pounds for 12 weeks. The physician will advise of any restriction changes. 7. The patient is expected to continue the prescribed walking program. 8. Continue pain control per as needed orders. 9. Continue with incentive spirometry and splinting/heart hugger until otherwise directed by the physician. 10. Must shower daily using liquid antibacterial soap and a separate white washcloth for each individual incision. 11. Routine sternal incision care. No powders, lotions, ointments on incisions. No dressings are necessary on incisions unless they are draining. Dermabond tape is to remain on sternal incision until surgeon follow-up. 12. Please call surgeon/FLIGHT TEACHER for temp greater than 101 F or purulent drainage from incisions. 13. You should weigh yourself daily, record and bring with you to all follow-up appointments 14. All prescriptions given by surgeon for 30 days. Refills need to be filled through wet sander/primary care physician. 15. A Red armband has been placed on the patient. It should be worn for 30 days post surgery and will be removed by the cardiac surgeons. If an ER visit is necessary, please make sure the number on the Red armband is called. 16. You have been referred to and are expected to begin Cardiac Rehab in approximately 4-6 weeks. HOME HEALTH SERVICES TO PROVIDE: RN SKILLED HOME CARE SERVICES FOR POST-OP SURGICAL PATIENTS WITH THE FOLLOWING: Coronary Artery Bypass Surgery (CABG), Mitral Valve Replacement/Repair ( MVR), Aortic Valve Replacement/Repair (AVR) RN TO CONTINUE EDUCATION FROM ``ROAD TO A HEALTH HEART PATIENT EDUCATION MANUAL (GIVEN TO PATIENT IN THE HOSPITAL) MEDICATION RECONCILIATION WITH EDUCATION NEEDED ON FIRST HOME VISIT EMPHASIZE IMPORTANCE OF WEARING BREAST SUPPORT/HEART HUGGER ENCOURAGE USE OF INCENTIVE SPIROMETER 10 X EVERY HOUR WHILE AWAKE ENCOURAGE UTILIZATION OF LOWER EXTREMITY COMPRESSION STOCKINGS/YOU HOSE and ELEVATE LEGS ABOVE LEVEL OF HEART WHILE AT REST. ENCOURAGE AMBULATION 3-5x/day INCREASING TOLERATES, WHILE AVOIDING EXTREMES IN TEMPERATURE FREQUENCY: RN TO OPEN THE PATIENT WITHIN 24 HOURS OF DISCHARGE FROM THE HOSPITAL WITH TELEHEALTH INSTALLED AT [facility], RN TO VISIT 2-3 X A WEEK FOR 4 WEEKS ESTABLISHED BY PATIENT NEEDS. LABORATORY: CBC, CMP TO BE DRAWN ON THE THIRD DAY HOME, (RAN STAT) FAX RESULTS TO [phone]. TELEHEALTH PARAMETERS: WEIGHT: NOTIFY MD OF WEIGHT GAIN OF 2 LBS IN 24 HOURS OR 5 LBS IN ONE WEEK HR: NOTIFY MD OF HR <55 BPM OR HR>100 BPM BP: NOTIFY MD IF BP <90/55 OR BP>140/100 O2 SAT: NOTIFY MD IF PO2<93% ON ROOM AIR SEND TELEHEALTH REPORT TO STOCK RANCH SUPERVISOR AND CARDIOVASCULAR SURGEON THE FIRST WEEK OF CARE AND THEN BI-WEEKLY. PLEASE ADDITIONALLY COMMUNICATE ANY ABNORMALS AND NEW FINDINGS TO THE SURGEONS OFFICE. [facility] is arranging Homecare with Nursing, Telehealth, Physical Therapy and Occupational therapy - Residential Home Care has been arranged by the [facility] Continue to monitor blood sugars before meals and at bedtime and keep a diary for primary care follow-up and continue with current medication regimen as prescribed. Discussed further with your primary care provider about possibly initiating insulin as hemoglobin A1c is 8.6 Discharge Disposition: HOME WITH HOME HEALTH SERVICES
[2021-08-02 13:36] VITALS: BP 104/60; PULSE 85; RESP 16; TEMP 97.9
--- NOTE | 2021-08-11 12:18 | CONS ---
CONSULTATION DATE OF SERVICE: 07/19/21 I met with the patient for 45 minutes during this consultation. TEX / AIYANAN: [id number] / [phone]
== END 2021-08-02 14:10 | disposition home health service (06) | DRG 216 ==
LOC: EC 02:59 → 3SCARD 06:00 → 3NCARDOBS 07-19 20:49 → 3SCARD 07-19 20:49 → 2SICU 07-22 07:35 → 3SCARD 08-01 14:10
PROVIDERS: ADMIT Surgery; ATTEND Surgery
PROC: 4A023N7 Measurement of Cardiac Sampling and Pressure, Left Heart, Percutaneous Approach (ICD-10-PCS; 2021-07-19)
PROC: B2111ZZ Fluoroscopy of Multiple Coronary Arteries using Low Osmolar Contrast (ICD-10-PCS; 2021-07-19)
PROC: B24BZZ4 Ultrasonography of Heart with Aorta, Transesophageal (ICD-10-PCS; 2021-07-20)
PROC: 025S0ZZ Destruction of Right Pulmonary Vein, Open Approach (ICD-10-PCS; 2021-07-22)
PROC: 06BQ4ZZ Excision of Left Saphenous Vein, Percutaneous Endoscopic Approach (ICD-10-PCS; 2021-07-22)
PROC: 5A1221Z Performance of Cardiac Output, Continuous (ICD-10-PCS; 2021-07-22)
PROC: 02L70CK Occlusion of Left Atrial Appendage with Extraluminal Device, Open Approach (ICD-10-PCS; 2021-07-22)
PROC: B24BZZ4 Ultrasonography of Heart with Aorta, Transesophageal (ICD-10-PCS; 2021-07-22)
PROC: 3E033XZ Introduction of Vasopressor into Peripheral Vein, Percutaneous Approach (ICD-10-PCS; 2021-07-22)
PROC: 02RF08Z Replacement of Aortic Valve with Zooplastic Tissue, Open Approach (ICD-10-PCS; principal; 2021-07-22 08:00)
PROC: 02100Z9 Bypass Coronary Artery, One Artery from Left Internal Mammary, Open Approach (ICD-10-PCS; 2021-07-22 08:00)
PROC: 021109W Bypass Coronary Artery, Two Arteries from Aorta with Autologous Venous Tissue, Open Approach (ICD-10-PCS; 2021-07-22 08:00)
PROC: 025T0ZZ Destruction of Left Pulmonary Vein, Open Approach (ICD-10-PCS; 2021-07-22 08:00)
DX: I21.4 Non-ST elevation (NSTEMI) myocardial infarction (principal); I50.23 Acute on chronic systolic (congestive) heart failure; J96.01 Acute respiratory failure with hypoxia; K72.00 Acute and subacute hepatic failure without coma; N17.0 Acute kidney failure with tubular necrosis; D62 Acute posthemorrhagic anemia; E87.1 Hypo-osmolality and hyponatremia; E87.4 Mixed disorder of acid-base balance; I13.0 Hypertensive heart and chronic kidney disease with heart failure and stage 1 through stage 4 chronic kidney disease, or unspecified chronic kidney disease; I31.3 Pericardial effusion (noninflammatory); I44.2 Atrioventricular block, complete; I48.19 Other persistent atrial fibrillation; J98.11 Atelectasis; D69.6 Thrombocytopenia, unspecified; D72.810 Lymphocytopenia; N18.31 Chronic kidney disease, stage 3a; E11.22 Type 2 diabetes mellitus with diabetic chronic kidney disease; E11.65 Type 2 diabetes mellitus with hyperglycemia; Z20.822 Contact with and (suspected) exposure to COVID-19; E61.1 Iron deficiency; E78.5 Hyperlipidemia, unspecified; E87.5 Hyperkalemia; E87.6 Hypokalemia; I08.0 Rheumatic disorders of both mitral and aortic valves; I25.10 Atherosclerotic heart disease of native coronary artery without angina pectoris; I25.2 Old myocardial infarction; I25.5 Ischemic cardiomyopathy; I70.0 Atherosclerosis of aorta; J44.9 Chronic obstructive pulmonary disease, unspecified; I95.89 Other hypotension; L89.152 Pressure ulcer of sacral region, stage 2; Z79.02 Long term (current) use of antithrombotics/antiplatelets; Z79.82 Long term (current) use of aspirin; Z79.84 Long term (current) use of oral hypoglycemic drugs; Z79.899 Other long term (current) drug therapy; Z82.49 Family history of ischemic heart disease and other diseases of the circulatory system; Z83.3 Family history of diabetes mellitus; Z95.1 Presence of aortocoronary bypass graft; Z95.3 Presence of xenogenic heart valve
CPT/HCPCS: 36415; 71045; 71046; 71250; 76770; 80048; 80053; 80061; 80074; 81003; 82330; 82533; 82803; 82805; 83036; 83540; 83550; 83605; 83615; 83735; 83880; 84132; 84145; 84443; 84484; 85025; 85027; 85520; 85610; 85730; 86022; 86140; 86850; 86891; 86900; 86901; 86920; 87070; 87081; 87324; 87430; 87635; 88305; 88311; 93005; 93306; 93308; 93312; 93320; 93325; 93458; 93880; 93930; 93970; 94002; 94640; 94660; 96372; 96375; 96376; 99285

== ENCOUNTER 2021-08-04 07:12 | Observation (INO) | payer MEDICARE, OTHER ==
[2021-08-04 07:31] LABS: Glucose,Whole Blood 70 mg/dL (75-99)
[2021-08-04 07:31] LABS: Glucose,Whole Blood 25 mg/dL (75-99)
[2021-08-04 07:42] LABS: Anisocytosis Slight; Basophils % (A) 0 %; Eosinophils % (A) 1 %; HCT 29.6 % (39.0-53.0); HGB 9.7 gm/dL (13.0-17.5); Hypochromasia Slight; Lymphocytes # (A) 0.2 k/uL (1.0-4.8); Lymphocytes % (A) 3 %; MCH 33.1 pg (25.0-35.0); MCHC 32.9 g/dL (31.0-37.0); MCV 100.4 fL (80.0-100.0); Macrocytosis Slight; Mean Platelet Volume 7.5; Monocytes # (A) 0.3 k/uL (0-1.0); Monocytes % (A) 4 %; Neutrophils # (A) 6.2 k/uL (1.3-7.7); Neutrophils % (A) 91 %; Platelet Count 246 k/uL (150-450); RBC 2.95 m/uL (4.30-5.90); WBC 6.8 k/uL (3.8-10.6)
[2021-08-04 07:53] LABS: INR 1.1 (<1.2); Partial Thromboplastin Time 28.5 sec (22.0-30.0); Prothrombin Time 11.8 sec (9.0-12.0)
[2021-08-04 07:59] LABS: Albumin 2.7 g/dL (3.5-5.0); Calcium 7.2 mg/dL (8.4-10.2); Potassium 3.4 mmol/L (3.5-5.1); Total Bilirubin 0.9 mg/dL (0.2-1.3); Total Protein 5.2 g/dL (6.3-8.2)
--- NOTE | 2021-08-04 08:23 | CT ---
EXAMINATION TYPE: CT brain luisine wo con DATE OF EXAM: 08/04/2021 COMPARISON: Brain 02/05/2018 HISTORY: 75-year-old male with pain after trauma, Fall, Confusion CT DLP: 1473.40 mGycm Automated exposure control for dose reduction was used. Technique: Examination of the head was done in axial plane without intravenous contrast. Coronal and sagittal reconstructions performed. CT of the cervical spine was obtained in axial plane without intravenous injection of contrast mater ial. Coronal and sagittal reformatted images were obtained from the axial views for evaluation of f ractures, spinal alignment and canal. FINDINGS: Head: There is no evidence of acute intracranial hemorrhage, acute ischemic changes, mass, mass-effect, or extra-axial fluid collection. There is no effacement of cerebral sulci or basal subarachnoid cister ns. There is no hydrocephalus. There is no midline shift. Laura-white matter distinction is preserv ed. Redemonstrated old lacunar infarct left coronal radiata. Old blowout fracture medial left orbital wall. Mild to moderate mucosal thickening throughout the eth moid air cells. Moderate to severe mucosal thickening right maxillary sinus. Mastoid air cells well p neumatized. Cervical spine: No craniocervical junction abnormality, predental space widening, or prevertebral soft tissue swellin g. Degenerative change at the C1 dens articulation. Multilevel hypertrophic facet and uncovertebral joint arthropathy. Some degenerative bony ankylosis a long the right C4-C5 facet joint in a fixed grade 1 anterolisthesis here at C4-C5. Otherwise, there is straightening of the normal cervical lordosis. Remaining alignment is maintained. Some heterotopic ossification along the posterior midline along the supraspinous ligament likely sequ saul of remote injuries. Moderate disc/endplate degenerative change C5-C7 levels. Likely some resultant very minimal mild spin al canal narrowing at these levels. No acute fracture seen of the of the cervical spine. Some air within the venous system along the left supraclavicular region likely introduced during peripheral line placement. Sagittal and coronal reformatted images confirm above findings. COMBINED IMPRESSION: 1. No acute intracranial abnormality seen. 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 2. No acute fracture of the cervical spine. Moderate spondylotic change with a degenerative grade 1 a nterolisthesis at C4-C5. 3. Moderate to severe right maxillary sinus disease. Consider outpatient ENT referral if symptomatic.
--- NOTE | 2021-08-04 08:43 | ED ---
General Adult HPI - General Chief complaint: Fall Stated complaint: Confusion Time Seen by Provider: 08/04/21 07:13 Source: patient, EMS, RN notes reviewed, old records reviewed Mode of arrival: EMS Limitations: no limitations - History of Present Illness Initial comments: 75-year-old male presenting for evaluation of confusion and fall. Patient had been brought in by EMS, he was noted to have a blood sugar in the 40s. He been given oral glucose and had returned to baseline. Patient is status post coronary artery bypass grafting and valve replacement. He is anticoagulated. He does not believe he hit his head. Paramedics denied any external signs of trauma to indicate head trauma. The fall was from a seated position on the edge of the bed. Patient has no pain complaints no chest pain, no abdominal pain. No hip or leg pain. No neck pain or headache. He states he feels completely normal at the time my evaluation. He is currently on metformin and glyburide. - Related Data Home Medications Medication Instructions Recorded Confirmed metFORMIN HCL [Glucophage] 1,000 mg PO BID 07/16/21 08/04/21 Amiodarone [Cordarone] See Taper PO DIRECTED 08/04/21 08/04/21 Furosemide [Lasix] See Taper PO DAILY 08/04/21 08/04/21 Sennosides-Docusate Sodium 2 tab PO HS PRN 08/04/21 08/04/21 [Senokot-S] Previous Rx's Medication Instructions Recorded Aspirin 81 mg PO DAILY #30 chewable 02/06/18 Acetaminophen Tab [Tylenol] 650 mg PO Q6HR PRN tab 08/02/21 Apixaban [Eliquis] 5 mg PO BID #60 tab 08/02/21 Atorvastatin [Lipitor] 40 mg PO DAILY #30 tab 08/02/21 Metoprolol Tartrate [Lopressor] 12.5 mg PO BID #60 tab 08/02/21 Midodrine [ProAmatine] 5 mg PO AC-TID #90 tab 08/02/21 Pantoprazole [Protonix] 40 mg PO AC-BRKFST #30 tab 08/02/21 Potassium Chloride 40 meq PO DAILY #240 ml 08/02/21 glyBURIDE [Diabeta] 5 mg PO AC-BID 30 Days #60 tablet 08/02/21 Allergies Allergy/AdvReac Type Severity Reaction Status Date / Time No Known Allergies Allergy Verified 08/04/21 11:05 Review of Systems ROS Statement: Those systems with pertinent positive or pertinent negative responses have been documented in the HPI. ROS Other: All systems not noted in ROS Statement are negative. Past Medical History Past Medical History: Coronary Artery Disease (CAD), Diabetes Mellitus, Hyperlipidemia, Hypertension, Myocardial Infarction ([place]) History of Any Multi-Drug Resistant Organisms: None Reported Past Surgical History: Cardiac Valve Replacement, Heart Catheterization With Stent, Hernia Repair Additional Past Surgical History / Comment(s): Right knee surgery CUT OUT CARTILAGE, hernia repair Past Anesthesia/Blood Transfusion Reactions: No Reported Reaction Past Psychological History: No Psychological Hx Reported Smoking Status: Never smoker Past Alcohol Use History: None Reported Past Drug Use History: None Reported - Past Family History Father Additional Family Medical History / Comment(s): AT AGE 84-CANCER OF LARNYX (SMOKER), CARDIAC PROBLEMS Mother Family Medical History: Diabetes Mellitus Additional Family Medical History / Comment(s): AT AGE 83- HAD A PITUITARY TUMOR REMOVED HAD SON CRISIS Sister(s) Family Medical History: Coronary Artery Disease (CAD) Additional Family Medical History / Comment(s): had CABG in her 70s General Exam Limitations: no limitations General appearance: alert, in no apparent distress Head exam: Present: atraumatic, normocephalic Eye exam: Present: normal appearance, PERRL ENT exam: Present: normal exam Neck exam: Present: normal inspection. Absent: tenderness, meningismus Respiratory exam: Present: normal lung sounds bilaterally. Absent: respiratory distress, wheezes Cardiovascular Exam: Present: regular rate, normal rhythm GI/Abdominal exam: Present: soft. Absent: distended, tenderness, guarding Extremities exam: Present: pedal edema Neurological exam: Present: alert, oriented X3, CN II-XII intact. Absent: motor sensory deficit Psychiatric exam: Present: normal affect, normal mood Skin exam: Present: warm, dry, intact. Absent: cyanosis, diaphoretic Course Vital Signs 08/04/21 08/04/21 07:15 09:03 Temperature 98.3 F Pulse Rate 109 H 68 Respiratory 18 18 Rate Blood Pressure 103/64 101/64 O2 Sat by Pulse 97 95 Oximetry - Reevaluation(s) Reevaluation #1: 08/04/21 08:39 Patient had been evaluated by Ina andrew for cardiothoracic surgery who was aware of the patient prior to arrival. Cleared for discharge from c ardiothoracic standpoint. Medical Decision Making - Medical Decision Making 75-year-old male presenting with confusion and minor fall. Confusion likely secondary to hypoglycemia as this improved to baseline with normalization of sugar. Head CT was performed as he is anticoagulated. There is no intracranial hemorrhage or mass effect. His additional laboratory testing is stable. Hemoglobin 9.7 which is in the range of where he has was at discharge. His kidney function is 1.28 which is improved. He has some electrolyte abnormalities which are stable. Patient's blood sugar does normalize with oral glucose and feeding but then subsequently dropped again into the 40s. He required 2 A as well as continuous IV dextrose. He will be monitored in observation status for close blood glucose monitoring. Case discussed with Dr. Solares. - Lab Data Result diagrams: 08/04/21 07:30 08/04/21 07:30 Lab Results 08/04/21 08/04/21 08/04/21 Range/Units 07:19 07:20 07:30 WBC 6.8 (3.8-10.6) k/uL RBC 2.95 L (4.30-5.90) m/uL Hgb 9.7 L (13.0-17.5) gm/dL Hct 29.6 L (39.0-53.0) % MCV 100.4 H (80.0-100.0) fL MCH 33.1 (25.0-35.0) pg MCHC 32.9 (31.0-37.0) g/dL RDW 17.0 H (11.5-15.5) % Plt Count 246 (150-450) k/uL MPV 7.5 Neutrophils % 91 % Lymphocytes % 3 % Monocytes % 4 % Eosinophils % 1 % Basophils % 0 % Neutrophils # 6.2 (1.3-7.7) k/uL Lymphocytes # 0.2 L (1.0-4.8) k/uL Monocytes # 0.3 (0-1.0) k/uL Eosinophils # 0.0 (0-0.7) k/uL Basophils # 0.0 (0-0.2) k/uL Hypochromasia Slight Anisocytosis Slight Macrocytosis Slight PT (9.0-12.0) sec INR (<1.2) APTT (22.0-30.0) sec Sodium (137-145) mmol/L Potassium (3.5-5.1) mmol/L Chloride (98-107) mmol/L Carbon Dioxide (22-30) mmol/L Anion Gap mmol/L BUN (9-20) mg/dL Creatinine (0.66-1.25) mg/dL Est GFR (CKD-EPI)AfAm (>60 ml/min/1.73 sqM) Est GFR (CKD-EPI)NonAf (>60 ml/min/1.73 sqM) Glucose (74-99) mg/dL POC Glucose (mg/dL) 25 L 70 L (75-99) mg/dL POC Glu Radiation Control Technician ID Leonora, Lj Leonora, Mobile Calcium (8.4-10.2) mg/dL Total Bilirubin (0.2-1.3) mg/dL AST (17-59) U/L ALT (4-49) U/L Alkaline Phosphatase (38-126) U/L Total Protein (6.3-8.2) g/dL Albumin (3.5-5.0) g/dL 08/04/21 08/04/21 08/04/21 Range/Units 07:30 07:30 08:56 WBC (3.8-10.6) k/uL RBC (4.30-5.90) m/uL Hgb (13.0-17.5) gm/dL Hct (39.0-53.0) % MCV (80.0-100.0) fL MCH (25.0-35.0) pg MCHC (31.0-37.0) g/dL RDW (11.5-15.5) % Plt Count (150-450) k/uL MPV Neutrophils % % Lymphocytes % % Monocytes % % Eosinophils % % Basophils % % Neutrophils # (1.3-7.7) k/uL Lymphocytes # (1.0-4.8) k/uL Monocytes # (0-1.0) k/uL Eosinophils # (0-0.7) k/uL Basophils # (0-0.2) k/uL Hypochromasia Anisocytosis Macrocytosis PT 11.8 (9.0-12.0) sec INR 1.1 (<1.2) APTT 28.5 (22.0-30.0) sec Sodium 130 L (137-145) mmol/L Potassium 3.4 L (3.5-5.1) mmol/L Chloride 100 (98-107) mmol/L Carbon Dioxide 26 (22-30) mmol/L Anion Gap 4 mmol/L BUN 29 H (9-20) mg/dL Creatinine 1.28 H (0.66-1.25) mg/dL Est GFR (CKD-EPI)AfAm 62 (>60 ml/min/1.73 sqM) Est GFR (CKD-EPI)NonAf 54 (>60 ml/min/1.73 sqM) Glucose 129 H (74-99) mg/dL POC Glucose (mg/dL) 47 L (75-99) mg/dL POC Glu Radiation Control Technician ID Tabitha Maldonado Calcium 7.2 L (8.4-10.2) mg/dL Total Bilirubin 0.9 (0.2-1.3) mg/dL AST 26 (17-59) U/L ALT 36 (4-49) U/L Alkaline Phosphatase 61 (38-126) U/L Total Protein 5.2 L (6.3-8.2) g/dL Albumin 2.7 L (3.5-5.0) g/dL 08/04/21 08/04/21 08/04/21 Range/Units 08:57 09:19 10:07 WBC (3.8-10.6) k/uL RBC (4.30-5.90) m/uL Hgb (13.0-17.5) gm/dL Hct (39.0-53.0) % MCV (80.0-100.0) fL MCH (25.0-35.0) pg MCHC (31.0-37.0) g/dL RDW (11.5-15.5) % Plt Count (150-450) k/uL MPV Neutrophils % % Lymphocytes % % Monocytes % % Eosinophils % % Basophils % % Neutrophils # (1.3-7.7) k/uL Lymphocytes # (1.0-4.8) k/uL Monocytes # (0-1.0) k/uL Eosinophils # (0-0.7) k/uL Basophils # (0-0.2) k/uL Hypochromasia Anisocytosis Macrocytosis PT (9.0-12.0) sec INR (<1.2) APTT (22.0-30.0) sec Sodium (137-145) mmol/L Potassium (3.5-5.1) mmol/L Chloride (98-107) mmol/L Carbon Dioxide (22-30) mmol/L Anion Gap mmol/L BUN (9-20) mg/dL Creatinine (0.66-1.25) mg/dL Est GFR (CKD-EPI)AfAm (>60 ml/min/1.73 sqM) Est GFR (CKD-EPI)NonAf (>60 ml/min/1.73 sqM) Glucose (74-99) mg/dL POC Glucose (mg/dL) 44 L 93 85 (75-99) mg/dL POC Glu Radiation Control Technician JAKE Maldonado, Tabitha Maldonado, Yanique Aquino Calcium (8.4-10.2) mg/dL Total Bilirubin (0.2-1.3) mg/dL AST (17-59) U/L ALT (4-49) U/L Alkaline Phosphatase (38-126) U/L Total Protein (6.3-8.2) g/dL Albumin (3.5-5.0) g/dL 08/04/21 Range/Units 11:54 WBC (3.8-10.6) k/uL RBC (4.30-5.90) m/uL Hgb (13.0-17.5) gm/dL Hct (39.0-53.0) % MCV (80.0-100.0) fL MCH (25.0-35.0) pg MCHC (31.0-37.0) g/dL RDW (11.5-15.5) % Plt Count (150-450) k/uL MPV Neutrophils % % Lymphocytes % % Monocytes % % Eosinophils % % Basophils % % Neutrophils # (1.3-7.7) k/uL Lymphocytes # (1.0-4.8) k/uL Monocytes # (0-1.0) k/uL Eosinophils # (0-0.7) k/uL Basophils # (0-0.2) k/uL Hypochromasia Anisocytosis Macrocytosis PT (9.0-12.0) sec INR (<1.2) APTT (22.0-30.0) sec Sodium (137-145) mmol/L Potassium (3.5-5.1) mmol/L Chloride (98-107) mmol/L Carbon Dioxide (22-30) mmol/L Anion Gap mmol/L BUN (9-20) mg/dL Creatinine (0.66-1.25) mg/dL Est GFR (CKD-EPI)AfAm (>60 ml/min/1.73 sqM) Est GFR (CKD-EPI)NonAf (>60 ml/min/1.73 sqM) Glucose (74-99) mg/dL POC Glucose (mg/dL) 46 L (75-99) mg/dL POC Glu Radiation Control Technician ID Tabitha Maldonado Calcium (8.4-10.2) mg/dL Total Bilirubin (0.2-1.3) mg/dL AST (17-59) U/L ALT (4-49) U/L Alkaline Phosphatase (38-126) U/L Total Protein (6.3-8.2) g/dL Albumin (3.5-5.0) g/dL Disposition Clinical Impression: Hypoglycemia Disposition: ADMITTED IP TO THIS HOSP Condition: Fair Additional Instructions: Please monitor glucose closely at home. Please do not take your glyburide today. Is patient prescribed a controlled substance at d/c from ED?: No Referrals: [facility],Clinic [Primary Care Provider] - 1-2 days Decision to Admit Reason: Admit from EC Decision Date: 08/04/21 Decision Time: 12:10
[2021-08-04] MEDS ORDERED: DEXTROSE 50% SYRINGE 50 ML IVP STA ×2 (08:58→11:56)
[2021-08-04 09:02] LABS: Glucose,Whole Blood 44 mg/dL (75-99)
[2021-08-04 09:02] LABS: Glucose,Whole Blood 47 mg/dL (75-99)
[2021-08-04 09:30] LABS: Glucose,Whole Blood 93 mg/dL (75-99)
[2021-08-04 10:09] LABS: Glucose,Whole Blood 85 mg/dL (75-99)
[2021-08-04 11:57] LABS: Glucose,Whole Blood 46 mg/dL (75-99)
[2021-08-04] MEDS ORDERED: NALOXONE 0.4 MG/ML 1 ML VIAL IV PRN (12:08)
[2021-08-04] MEDS ORDERED: ACETAMINOPHEN TAB 325 MG TAB PO PRN ×2 (12:08→13:28)
[2021-08-04] MEDS: DEXTROSE 5%-0.9% NACL 1,000 ML IV SCH (12:11)
[2021-08-04] MEDS ORDERED: SENNOSIDES-DOCUSATE SODIUM 1 EACH TAB PO PRN (13:29)
--- NOTE | 2021-08-04 13:58 | XR ---
EXAMINATION TYPE: XR chest 1V portable DATE OF EXAM: 08/04/2021 COMPARISON: Chest x-ray 08/02/2021 HISTORY: Post cardiac surgery, abnormal chest x-ray TECHNIQUE: Single frontal view of the chest is obtained. FINDINGS: Patient is post median sternotomy, cardiac valve replacement, left atrial appendage clip p lacement. The heart is enlarged. Abnormal density present at the left lung base persists. No pneumoth orax. There is arthropathy within the shoulders. Interstitium appears somewhat increased. There is ar thropathy within the shoulders. Lung volumes are low. Technique somewhat apical lordotic and rotated. IMPRESSION: Possible left lower lobe atelectasis versus pneumonia and associated effusion, difficult to exclude interstitial edema, exam is somewhat expiratory and rotated, follow-up suggested.
--- NOTE | 2021-08-04 14:23 | P.GSCN ---
History of Present Illness Consult date: 08/04/21 Reason for Consult: recent CABG/AVR Requesting physician: Elias Parrish History of present illness: This is a 75-year-old gentleman who follows on an outpatient basis with the [facility] for primary care as well as Dr. Mathews for cardiology. He was discharged 2 days ago from [facility] after undergoing 3 vessel CABG and bioprosthetic aortic valve replacement during a hospitalization which included diagnoses of non-STEMI, acute systolic heart failure, paroxysmal episodes of second-degree as well as complete heart block and paroxysmal atrial fibrillation, as well as acute kidney injury. He was recovering uneventfully at home until this morning when his reported he was a bit confused and had a hard time getting out of bed, eventually sliding to the floor. They both deny that he hit his head. His called EMS to bring him to the hospital, he was noted to have a blood sugar in the 40s. He did have a head CT which demonstrated no acute process. Plan was to stabilize his blood sugar, discharge him to home and hold his glyburide which was a new medication for him, however his blood sugar kept dropping in the emergency room so decision was made to keep him overnight for observation. Lab work was reviewed, WBC 6.8, hemoglobin 9.7, platelet count 246, INR 1.1, sodium 1:30, potassium 3.4, BUN 29, creatinine 1.28, calcium 7.2, and Covid PCR was positive. Mr. Ervin does remain unvaccinated from Covid. Consultation was placed to cardiothoracic surgery as this patient is well-known to us from his previous admission. Review of Systems Review of systems was completed and was negative except as noted - Constitutional Reports weakness - Neurological Reports as per HPI, Reports confusion - Endocrine Reports as per HPI, Reports low blood sugars Past Medical History Past Medical History: Atrial Fibrillation, Coronary Artery Disease (CAD), Diabetes Mellitus, Hyperlipidemia, Hypertension, Myocardial Infarction ([place]), Renal Disease Additional Past Medical History / Comment(s): Aortic stenosis; baseline sinus rhythm with first-degree AV block, paroxysmal episodes of second and third- degree block preoperatively History of Any Multi-Drug Resistant Organisms: None Reported Past Surgical History: Cardiac Valve Replacement, Coronary Bypass/CABG, Heart Catheterization With Stent, Hernia Repair Additional Past Surgical History / Comment(s): Right knee surgery CUT OUT CARTILAGE, hernia repair; three-vessel CABG as well as bioprosthetic aortic valve replacement 07/22/2021 Past Anesthesia/Blood Transfusion Reactions: No Reported Reaction Past Psychological History: No Psychological Hx Reported Smoking Status: Never smoker Past Alcohol Use History: None Reported Past Drug Use History: None Reported - Past Family History Father Additional Family Medical History / Comment(s): AT AGE 84-CANCER OF LARNYX (SMOKER), CARDIAC PROBLEMS Mother Family Medical History: Diabetes Mellitus Additional Family Medical History / Comment(s): AT AGE 83- HAD A PITUITARY TUMOR REMOVED HAD SON CRISIS Sister(s) Family Medical History: Coronary Artery Disease (CAD) Additional Family Medical History / Comment(s): had CABG in her 70s Medications and Allergies Home Medications Medication Instructions Recorded Confirmed Type Aspirin 81 mg PO DAILY #30 chewable 02/06/18 08/04/21 Rx metFORMIN HCL [Glucophage] 1,000 mg PO BID 07/16/21 08/04/21 History Acetaminophen Tab [Tylenol] 650 mg PO Q6HR PRN tab 08/02/21 08/04/21 Rx Apixaban [Eliquis] 5 mg PO BID #60 tab 08/02/21 08/04/21 Rx Atorvastatin [Lipitor] 40 mg PO DAILY #30 tab 08/02/21 08/04/21 Rx Metoprolol Tartrate [Lopressor] 12.5 mg PO BID #60 tab 08/02/21 08/04/21 Rx Midodrine [ProAmatine] 5 mg PO AC-TID #90 tab 08/02/21 08/04/21 Rx Pantoprazole [Protonix] 40 mg PO AC-BRKFST #30 tab 08/02/21 08/04/21 Rx Potassium Chloride 40 meq PO DAILY #240 ml 08/02/21 08/04/21 Rx glyBURIDE [Diabeta] 5 mg PO AC-BID 30 Days #60 tablet 08/02/21 08/04/21 Rx Amiodarone [Cordarone] See Taper PO DIRECTED 08/04/21 08/04/21 History Furosemide [Lasix] See Taper PO DAILY 08/04/21 08/04/21 History Sennosides-Docusate Sodium 2 tab PO HS PRN 08/04/21 08/04/21 History [Senokot-S] Allergies Allergy/AdvReac Type Severity Reaction Status Date / Time No Known Allergies Allergy Verified 08/04/21 11:05 Surgical - Exam Vital Signs Temp Pulse Resp BP Pulse Ox 98.3 F 109 H 18 103/64 97 08/04/21 07:15 08/04/21 07:15 08/04/21 07:15 08/04/21 07:15 08/04/21 07:15 CONSTITUTIONAL: Awake and alert, appears comfortable, cooperative, well- developed, well-nourished, no pain, no acute distress EYES: Pupils equal, round, reactive to light, normal ocular movement ENT: Moist mucous membranes without oral lesions present NECK: No masses, no bruits, trachea midline RESPIRATORY: Lungs sounds are managed in the bases bilaterally, left greater than right. Respirations even, nonlabored. Currently on room air with oxygen saturation 95%. Strong cough. CARDIOVASCULAR: S1, S2 present. Regular rate and rhythm. Sternum stable. Palpable peripheral pulses bilaterally. Trace bilateral lower extremity edema present. No calf pain or tenderness noted. Heart hugger in place with patient demonstrating appropriate use GASTROINTESTINAL: Abdomen soft, nontender, nondistended without masses or organomegaly noted. There is no rebound or guarding present. Active bowel sounds present 4 quadrants. GENITOURINARY: Deferred INTEGUMENTARY: Skin is warm and dry with evidence of good perfusion. Anterior chest incision well approximated, surgical tape removed. Chest tube sites and lower extremity EVH sites well approximated without redness or drainage NEUROLOGIC: Cranial nerves II through XII intact, normal coordination, no obvious motor or sensory deficits, speech is normal MUSKULOSKELETAL: Able to move all extremities, strength equal bilaterally, normal posture PSYCHIATRIC: Alert and oriented to person place and time, appropriate affect, intact judgment and insight Results - Labs 08/04/21 07:30 08/04/21 07:30 Abnormal Lab Results - Last 24 Hours (Table) 08/04/21 08/04/21 08/04/21 Range/Units 07:19 07:20 07:30 RBC 2.95 L (4.30-5.90) m/uL Hgb 9.7 L (13.0-17.5) gm/dL Hct 29.6 L (39.0-53.0) % MCV 100.4 H (80.0-100.0) fL RDW 17.0 H (11.5-15.5) % Lymphocytes # 0.2 L (1.0-4.8) k/uL Sodium (137-145) mmol/L Potassium (3.5-5.1) mmol/L BUN (9-20) mg/dL Creatinine (0.66-1.25) mg/dL Glucose (74-99) mg/dL POC Glucose (mg/dL) 25 L 70 L (75-99) mg/dL Calcium (8.4-10.2) mg/dL Total Protein (6.3-8.2) g/dL Albumin (3.5-5.0) g/dL Coronavirus (PCR) (Not Detectd) 08/04/21 08/04/21 08/04/21 Range/Units 07:30 08:56 08:57 RBC (4.30-5.90) m/uL Hgb (13.0-17.5) gm/dL Hct (39.0-53.0) % MCV (80.0-100.0) fL RDW (11.5-15.5) % Lymphocytes # (1.0-4.8) k/uL Sodium 130 L (137-145) mmol/L Potassium 3.4 L (3.5-5.1) mmol/L BUN 29 H (9-20) mg/dL Creatinine 1.28 H (0.66-1.25) mg/dL Glucose 129 H (74-99) mg/dL POC Glucose (mg/dL) 47 L 44 L (75-99) mg/dL Calcium 7.2 L (8.4-10.2) mg/dL Total Protein 5.2 L (6.3-8.2) g/dL Albumin 2.7 L (3.5-5.0) g/dL Coronavirus (PCR) (Not Detectd) 08/04/21 08/04/21 Range/Units 11:54 12:23 RBC (4.30-5.90) m/uL Hgb (13.0-17.5) gm/dL Hct (39.0-53.0) % MCV (80.0-100.0) fL RDW (11.5-15.5) % Lymphocytes # (1.0-4.8) k/uL Sodium (137-145) mmol/L Potassium (3.5-5.1) mmol/L BUN (9-20) mg/dL Creatinine (0.66-1.25) mg/dL Glucose (74-99) mg/dL POC Glucose (mg/dL) 46 L (75-99) mg/dL Calcium (8.4-10.2) mg/dL Total Protein (6.3-8.2) g/dL Albumin (3.5-5.0) g/dL Coronavirus (PCR) Detected A (Not Detectd) Diabetes panel 08/04/21 Range/Units 07:30 Sodium 130 L (137-145) mmol/L Potassium 3.4 L (3.5-5.1) mmol/L Chloride 100 (98-107) mmol/L Carbon Dioxide 26 (22-30) mmol/L BUN 29 H (9-20) mg/dL Creatinine 1.28 H (0.66-1.25) mg/dL Glucose 129 H (74-99) mg/dL Calcium 7.2 L (8.4-10.2) mg/dL AST 26 (17-59) U/L ALT 36 (4-49) U/L Alkaline Phosphatase 61 (38-126) U/L Total Protein 5.2 L (6.3-8.2) g/dL Albumin 2.7 L (3.5-5.0) g/dL Calcium panel 08/04/21 Range/Units 07:30 Calcium 7.2 L (8.4-10.2) mg/dL Albumin 2.7 L (3.5-5.0) g/dL Pituitary panel 08/04/21 Range/Units 07:30 Sodium 130 L (137-145) mmol/L Potassium 3.4 L (3.5-5.1) mmol/L Chloride 100 (98-107) mmol/L Carbon Dioxide 26 (22-30) mmol/L BUN 29 H (9-20) mg/dL Creatinine 1.28 H (0.66-1.25) mg/dL Glucose 129 H (74-99) mg/dL Calcium 7.2 L (8.4-10.2) mg/dL Adrenal panel 08/04/21 Range/Units 07:30 Sodium 130 L (137-145) mmol/L Potassium 3.4 L (3.5-5.1) mmol/L Chloride 100 (98-107) mmol/L Carbon Dioxide 26 (22-30) mmol/L BUN 29 H (9-20) mg/dL Creatinine 1.28 H (0.66-1.25) mg/dL Glucose 129 H (74-99) mg/dL Calcium 7.2 L (8.4-10.2) mg/dL Total Bilirubin 0.9 (0.2-1.3) mg/dL AST 26 (17-59) U/L ALT 36 (4-49) U/L Alkaline Phosphatase 61 (38-126) U/L Total Protein 5.2 L (6.3-8.2) g/dL Albumin 2.7 L (3.5-5.0) g/dL - Imaging Chest x-ray: report reviewed, image reviewed Assessment and Plan Assessment: 1. Hypoglycemia present on admission 2. Positive for COVID-19, remains unvaccinated 3. Triple-vessel coronary artery disease with recent non-STEMI last admission, status post three-vessel CABG 4. Chronic systolic heart failure, recent admission for acute heart failure with EF 30-35%, improved post surgery to 50-55% 5. First-degree heart block with preoperative episodes of second and complete heart block 6. Recent acute kidney injury 7. Aortic stenosis, status post bioprosthetic aortic valve replacement 8. History of hypertension with recent hypotension 9. Qhe-[id number] diabetes, preoperative hemoglobin A1c is 8.6%, on metformin at home with glyburide added at discharge 10. History of hyperlipidemia Plan: The patient was seen and examined in the emergency room. Chart/diagnostics reviewed. The case was discussed in detail with Dr. Goyal. We recommend continuing current home medications without his oral hypoglycemics at this point. Blood sugars to be monitored every 2 hours. As blood sugars normalize patient should be restarted on his metformin, likely without glyburide. Patient will still need tight blood sugar control to prevent sternal infection. Continue sternal precautions including no lifting/pushing/pulling anything greater than 10 pounds, patient to shower daily. Incentive spirometer ordered and should be encouraged. Consultation placed to pulmonology for recommendations regarding Covid treatment. Will discuss the case with Dr. Bingham. More recommendations to follow. Thank you for this consult. We will continue to follow along closely. Time with Patient: Greater than 30
[2021-08-04 14:27] LABS: Glucose,Whole Blood 52 mg/dL (75-99)
[2021-08-04 14:27] LABS: Glucose,Whole Blood 49 mg/dL (75-99)
[2021-08-04 15:31] LABS: Glucose,Whole Blood 53 mg/dL (75-99)
[2021-08-04 16:16] LABS: Glucose,Whole Blood 63 mg/dL (75-99)
[2021-08-04 16:33] LABS: Glucose,Whole Blood 47 mg/dL (75-99)
[2021-08-04 16:52] LABS: Glucose,Whole Blood 93 mg/dL (75-99)
[2021-08-04 18:28] LABS: Glucose,Whole Blood 101 mg/dL (75-99)
[2021-08-04] MEDS: MIDODRINE 5 MG TAB PO SCH (19:56)
[2021-08-04 20:04] LABS: Glucose,Whole Blood 164 mg/dL (75-99)
--- NOTE | 2021-08-04 20:44 | P.HPIM ---
History of Present Illness H&P Date: 08/04/21 Chief Complaint: Fall Patient is a 75-year-old male with a known history of coronary artery disease, hypertension, hyperlipidemia, diabetes type 2 [id number] and severe aortic stenosis who recently had triple-vessel CABG and aortic valve replacement and was discharged from the hospital on 08/02/2021. Postoperatively patient developed acute systolic heart failure and paroxysmal episodes of heart block and probable atrial fibrillation and acute kidney injury. Patient did improve clinically and was discharged from the hospital. Patient certainly side of the bed and suddenly had fall and landed on his buttocks. EMS was called due to altered mental status and fall. Blood sugar noted to be in 40s. Patient was given oral glucose and was brought to the hosp ital. Patient denied any hitting his head. Denied any fever or chills. No cough or sputum production. No complaints of chest pain. No nausea vomiting abdominal pain or diarrhea. Patient has been having poor appetite since discharge and has not been eating very well. Currently patient is awake alert and oriented x3. Does take Metformin 1000 mg twice daily and glyburide at home. CT head and cervical spine showed no acute intracranial abnormality seen. No acute fracture of the cervical spine. Moderate spondylotic change with degenerative grade 1 anterior listhesis at C4-C5. Moderate to severe right maxillary sinus disease. Chest x-ray showed possible left lower lobe atelectasis versus pneumonia and associated effusion difficult to exclude interstitial edema. Exam is somewhat expiratory and rotated follow-up suggested. Laboratory showed WBC 6.8 hemoglobin 9.7 and MCV 100.4 platelets 246 Lymphocytes 0.2 Sodium 130 potassium 3.4 chloride 100 BUN 29 and creatinine 1.28 blood sugar is 129 calcium 7.2 albumin 2.7 Coronavirus PCR detected. Review of Systems Constitutional: Patient denies any fever or chills . No generalized weakness or weight loss. Abdomen: Patient denied nausea vomiting and diarrhea and abdominal pain. Cardiovascular: Patient denies any chest pain or short of breath no palpitations. Respiratory: patient denied any cough or sputum production. No shortness of breath Neurologic: Patient denied any numbness or tingling headache. Musculoskeletal: Patient denies any complaints of joint swelling or deformity. Skin: Negative Psychiatric: Negative Endocrine: No heat or cold intolerance. No recent weight gain. Genitourinary: No dysuria or hematuria. All other 14 point ROS negative except the above Past Medical History Past Medical History: Coronary Artery Disease (CAD), Diabetes Mellitus, Hyperlipidemia, Hypertension, Myocardial Infarction (ND) History of Any Multi-Drug Resistant Organisms: None Reported Past Surgical History: Cardiac Valve Replacement, Heart Catheterization With Stent, Hernia Repair Additional Past Surgical History / Comment(s): Right knee surgery CUT OUT CARTILAGE, hernia repair Past Anesthesia/Blood Transfusion Reactions: No Reported Reaction Past Psychological History: No Psychological Hx Reported Smoking Status: Never smoker Past Alcohol Use History: None Reported Past Drug Use History: None Reported - Past Family History Father Additional Family Medical History / Comment(s): AT AGE 84-CANCER OF LARNYX (SMOKER), CARDIAC PROBLEMS Mother Family Medical History: Diabetes Mellitus Additional Family Medical History / Comment(s): AT AGE 83- HAD A PITUITARY TUMOR REMOVED HAD SON CRISIS Sister(s) Family Medical History: Coronary Artery Disease (CAD) Additional Family Medical History / Comment(s): had CABG in her 70s Medications and Allergies Home Medications Medication Instructions Recorded Confirmed Type Aspirin 81 mg PO DAILY #30 chewable 02/06/18 08/04/21 Rx metFORMIN HCL [Glucophage] 1,000 mg PO BID 07/16/21 08/04/21 History Acetaminophen Tab [Tylenol] 650 mg PO Q6HR PRN tab 08/02/21 08/04/21 Rx Apixaban [Eliquis] 5 mg PO BID #60 tab 08/02/21 08/04/21 Rx Atorvastatin [Lipitor] 40 mg PO DAILY #30 tab 08/02/21 08/04/21 Rx Metoprolol Tartrate [Lopressor] 12.5 mg PO BID #60 tab 08/02/21 08/04/21 Rx Midodrine [ProAmatine] 5 mg PO AC-TID #90 tab 08/02/21 08/04/21 Rx Pantoprazole [Protonix] 40 mg PO AC-BRKFST #30 tab 08/02/21 08/04/21 Rx Potassium Chloride 40 meq PO DAILY #240 ml 08/02/21 08/04/21 Rx glyBURIDE [Diabeta] 5 mg PO AC-BID 30 Days #60 tablet 08/02/21 08/04/21 Rx Amiodarone [Cordarone] See Taper PO DIRECTED 08/04/21 08/04/21 History Furosemide [Lasix] See Taper PO DAILY 08/04/21 08/04/21 History Sennosides-Docusate Sodium 2 tab PO HS PRN 08/04/21 08/04/21 History [Senokot-S] Allergies Allergy/AdvReac Type Severity Reaction Status Date / Time No Known Allergies Allergy Verified 08/04/21 11:05 Physical Exam Vitals: Vital Signs Temp Pulse Resp BP Pulse Ox 08/04/21 09:03 68 18 101/64 95 08/04/21 07:15 98.3 F 109 H 18 103/64 97 Intake and Output 08/03/21 08/04/21 08/04/21 22:59 06:59 14:59 Other: Weight 92.986 kg PHYSICAL EXAMINATION: Patient is lying in the bed comfortably, no acute distress, awake alert and oriented.. HEENT: Normocephalic. Neck is supple. Pupils reactive. Nostrils clear. Oral cavity is moist. Neck reveals no JVD, carotid bruits, or thyromegaly. CHEST EXAMINATION: Trachea is central. Symmetrical expansion. Bibasilar diminished sounds. Scattered coarse sounds. No wheezing or rhonchi.. CARDIAC: Normal S1, S2 with no gallops. No murmurs ABDOMEN: Soft. Bowel sounds normal. No organomegaly. No abdominal bruits. Extremities: reveal no edema. No clubbing or cyanosis Neurologically awake, alert, oriented x3 with well-coordinated movements. No focal deficits noted Skin: No rash or skin lesions. Psychiatric: Cooperative. Nonsuicidal Musculoskeletal: No joint swelling or deformity. Normal range of motion. Results CBC & Chem 7: 08/04/21 07:30 08/04/21 07:30 Labs: Abnormal Lab Results - Last 24 Hours (Table) 08/04/21 08/04/21 08/04/21 Range/Units 07:19 07:20 07:30 RBC 2.95 L (4.30-5.90) m/uL Hgb 9.7 L (13.0-17.5) gm/dL Hct 29.6 L (39.0-53.0) % MCV 100.4 H (80.0-100.0) fL RDW 17.0 H (11.5-15.5) % Lymphocytes # 0.2 L (1.0-4.8) k/uL Sodium (137-145) mmol/L Potassium (3.5-5.1) mmol/L BUN (9-20) mg/dL Creatinine (0.66-1.25) mg/dL Glucose (74-99) mg/dL POC Glucose (mg/dL) 25 L 70 L (75-99) mg/dL Calcium (8.4-10.2) mg/dL Total Protein (6.3-8.2) g/dL Albumin (3.5-5.0) g/dL Coronavirus (PCR) (Not Detectd) 08/04/21 08/04/21 08/04/21 Range/Units 07:30 08:56 08:57 RBC (4.30-5.90) m/uL Hgb (13.0-17.5) gm/dL Hct (39.0-53.0) % MCV (80.0-100.0) fL RDW (11.5-15.5) % Lymphocytes # (1.0-4.8) k/uL Sodium 130 L (137-145) mmol/L Potassium 3.4 L (3.5-5.1) mmol/L BUN 29 H (9-20) mg/dL Creatinine 1.28 H (0.66-1.25) mg/dL Glucose 129 H (74-99) mg/dL POC Glucose (mg/dL) 47 L 44 L (75-99) mg/dL Calcium 7.2 L (8.4-10.2) mg/dL Total Protein 5.2 L (6.3-8.2) g/dL Albumin 2.7 L (3.5-5.0) g/dL Coronavirus (PCR) (Not Detectd) 08/04/21 08/04/21 Range/Units 11:54 12:23 RBC (4.30-5.90) m/uL Hgb (13.0-17.5) gm/dL Hct (39.0-53.0) % MCV (80.0-100.0) fL RDW (11.5-15.5) % Lymphocytes # (1.0-4.8) k/uL Sodium (137-145) mmol/L Potassium (3.5-5.1) mmol/L BUN (9-20) mg/dL Creatinine (0.66-1.25) mg/dL Glucose (74-99) mg/dL POC Glucose (mg/dL) 46 L (75-99) mg/dL Calcium (8.4-10.2) mg/dL Total Protein (6.3-8.2) g/dL Albumin (3.5-5.0) g/dL Coronavirus (PCR) Detected A (Not Detectd) Thrombosis Risk Factor Assmnt - DVT/VTE Prophylaxis DVT/VTE Prophylaxis: Pharmacologic Prophylaxis ordered Assessment and Plan Assessment: Altered mental status due to hypoglycemia with blood sugar in 40s Status post fall. Acute COVID-19 infection. Patient is not vaccinated. Hypovolemic hyponatremia Acute kidney injury likely prerenal Hypokalemia Recent history of triple-vessel CABG and aortic valve replacement. Discharged on 08/02/2020 Chronic CHF with systolic dysfunction ejection fraction 30 to 35% improved to 50 to 55% post r surgery Paroxysmal atrial fibrillation on anticoagulation with Eliquis Diabetes type 2 [id number]. On Metformin and glyburide at home. A1c 8.6 Hypertension. Patient has been hypotensive. Hyperlipidemia DVT prophylaxis currently on Eliquis. Plan: Patient was given D50 in the ER. Still hypoglycemic and is being continued on gentle IV hydration with D5 normal saline. Monitor blood sugar closely. Metformin and glyburide on hold. Patient is currently on room air. Continue with anticoagulation and multivitamin supplementation. Monitor respiratory status closely. Continue with aspirin statins and metoprolol. CT surgery and pulmonary was consulted. Continue to follow closely. Prognosis is guarded at this time. Time with Patient: Greater than 30
[2021-08-04] MEDS ORDERED: FAMOTIDINE 20 MG/2 ML VIAL IV SCH (21:00)
[2021-08-04] MEDS: METOPROLOL TARTRATE 12.5 MG TAB PO SCH (21:47)
[2021-08-04] MEDS: AMIODARONE 200 MG TAB PO SCH (21:47)
[2021-08-04] MEDS: APIXABAN 5 MG TAB PO SCH (21:47)
[2021-08-04 22:03] LABS: Glucose,Whole Blood 151 mg/dL (75-99)
[2021-08-05 00:06] LABS: Glucose,Whole Blood 128 mg/dL (75-99)
[2021-08-05 02:10] LABS: Glucose,Whole Blood 150 mg/dL (75-99)
[2021-08-05 04:14] LABS: Glucose,Whole Blood 143 mg/dL (75-99)
[2021-08-05 05:42] LABS: Glucose,Whole Blood 142 mg/dL (75-99)
[2021-08-05 07:09] LABS: Glucose,Whole Blood 150 mg/dL (75-99)
[2021-08-05 07:42] LABS: Anisocytosis Slight; HCT 31.5 % (39.0-53.0); HGB 10.1 gm/dL (13.0-17.5); Hypochromasia Slight; MCH 32.3 pg (25.0-35.0); MCV 100.9 fL (80.0-100.0); Macrocytosis Slight; Mean Platelet Volume 7.4; Platelet Count 231 k/uL (150-450); RBC 3.12 m/uL (4.30-5.90); RDW 16.8 % (11.5-15.5); WBC 4.9 k/uL (3.8-10.6)
[2021-08-05 07:43] LABS: ALT 34 U/L (4-49); AST 26 U/L (17-59); African American GFR (CKD) 62 (>60 ml/min/1.73 sqM); Albumin 2.8 g/dL (3.5-5.0); Alkaline Phosphatase 69 U/L (38-126); Anion Gap 5 mmol/L; Blood Urea Nitrogen 26 mg/dL (9-20); Calcium 7.9 mg/dL (8.4-10.2); Carbon Dioxide 29 mmol/L (22-30); Chloride 95 mmol/L (98-107); Globulin 2.7 g/dL; Glucose 147 mg/dL (74-99); LDH 741 U/L (313-618); Magnesium 1.9 mg/dL (1.6-2.3); Non-African American GFR(CKD) 53 (>60 ml/min/1.73 sqM); Potassium 4.4 mmol/L (3.5-5.1); Sodium 129 mmol/L (137-145); Total Bilirubin 1.1 mg/dL (0.2-1.3); Total Protein 5.5 g/dL (6.3-8.2)
[2021-08-05] MEDS: PANTOPRAZOLE 40 MG TABLET PO SCH (07:59)
[2021-08-05] MEDS: APIXABAN 5 MG TAB PO SCH ×2 (07:59→21:17)
[2021-08-05] MEDS: CHOLECALCIFEROL 25 MCG (1000 IU) TABLET PO SCH (07:59)
[2021-08-05] MEDS: POTASSIUM CHLORIDE ER 20 MEQ TAB.ER PO SCH (07:59)
[2021-08-05] MEDS: ZINC SULFATE 220 MG CAP PO SCH (07:59)
[2021-08-05] MEDS: FUROSEMIDE 40 MG TAB PO SCH (07:59)
[2021-08-05] MEDS: ATORVASTATIN 40 MG TAB PO SCH (08:00)
[2021-08-05] MEDS: ASPIRIN 81 MG PO SCH (08:00)
[2021-08-05] MEDS: METOPROLOL TARTRATE 12.5 MG TAB PO SCH ×2 (08:07→21:17)
[2021-08-05] MEDS: AMIODARONE 200 MG TAB PO SCH (08:07)
--- NOTE | 2021-08-05 08:19 | P.PN ---
Subjective Progress Note Date: 08/05/21 Principal diagnosis: Hypoglycemia present on admission, positive for COVID-19, remains unvaccinated. Previous medical history of triple-vessel coronary artery disease with recent non-STEMI last admission, status post three-vessel CABG, aortic stenosis, status post bioprosthetic aortic valve replacement, chronic systolic heart failure, recent admission for acute heart failure with EF 30-35%, improved post surgery to 50-55%, first-degree heart block with preoperative episodes of second and complete heart block, paroxysmal atrial fibrillation on Eliquis anticoagulation, recent acute kidney injury, hypertension with recent hypotension, [id number] diabetes, hyperlipidemia The patient was seen and examined this morning sitting up at the bedside eating breakfast in no acute distress. States he feels much better. Denies any pain or shortness of breath. No confusion present. Patient is oxygenating well on room air. He has been ambulatory in his room. Blood sugars have been well controlled although patient has had no diabetic medication, remains on D5 0.9. Covid PCR was positive, LDH this morning is 741. Pulmonology consulted for recommendations. BNP 11,700, patient is on Lasix, however he is also getting fluids. Objective - Vital Signs Vital signs: Vital Signs Temp 98.2 F 08/05/21 02:06 Pulse 61 08/05/21 02:06 Resp 19 08/05/21 02:06 BP 94/53 08/05/21 02:06 Pulse Ox 96 08/05/21 02:06 Intake & Output 08/04/21 08/05/21 08/05/21 18:59 06:59 18:59 Intake Total 90 Output Total 0 0 Balance 90 0 Weight 92.986 kg 95 kg Intake: Oral 90 Output: Stool 0 0 Other: # Voids 1 1 - Exam CONSTITUTIONAL: Appears comfortable, cooperative, no acute distress RESPIRATORY: Lungs sounds diminished bilaterally. Respirations even, nonlabored. Currently on room air with oxygen saturation 96%. Strong cough. CARDIOVASCULAR: S1, S2 present. Regular rate and rhythm. Sternum stable. Palpable peripheral pulses bilaterally. Trace bilateral lower extremity edema present, left greater than right. No calf pain or tenderness noted. Heart hugger in place with patient demonstrating appropriate use. Antiembolism stockings present. GASTROINTESTINAL: Abdomen soft, nontender, nondistended. Active bowel sounds present 4 quadrants. Tolerating diet. GENITOURINARY: Continues to void although amount not documented INTEGUMENTARY: Skin is warm and dry with evidence of good perfusion. Anterior chest incision well approximated. Bilateral lower extremity EVH site well approximated NEUROLOGIC: Cranial nerves II through XII intact MUSKULOSKELETAL: Able to move all extremities, strength equal bilaterally, gait normal PSYCHIATRIC: Alert and oriented to person place and time, appropriate affect, intact judgment and insight - Allied health notes Allied health notes reviewed: nursing - Labs CBC & Chem 7: 08/05/21 07:01 08/05/21 07:01 Labs: Abnormal Lab Results - Last 24 Hours (Table) 08/04/21 08/04/21 08/04/21 Range/Units 07:30 08:56 08:57 RBC (4.30-5.90) m/uL Hgb (13.0-17.5) gm/dL Hct (39.0-53.0) % MCV (80.0-100.0) fL RDW (11.5-15.5) % Sodium 130 L (137-145) mmol/L Potassium 3.4 L (3.5-5.1) mmol/L Chloride (98-107) mmol/L BUN 29 H (9-20) mg/dL Creatinine 1.28 H (0.66-1.25) mg/dL Glucose 129 H (74-99) mg/dL POC Glucose (mg/dL) 47 L 44 L (75-99) mg/dL Calcium 7.2 L (8.4-10.2) mg/dL Lactate Dehydrogenase (313-618) U/L Total Protein 5.2 L (6.3-8.2) g/dL Albumin 2.7 L (3.5-5.0) g/dL Coronavirus (PCR) (Not Detectd) 08/04/21 08/04/21 08/04/21 Range/Units 11:54 12:23 14:24 RBC (4.30-5.90) m/uL Hgb (13.0-17.5) gm/dL Hct (39.0-53.0) % MCV (80.0-100.0) fL RDW (11.5-15.5) % Sodium (137-145) mmol/L Potassium (3.5-5.1) mmol/L Chloride (98-107) mmol/L BUN (9-20) mg/dL Creatinine (0.66-1.25) mg/dL Glucose (74-99) mg/dL POC Glucose (mg/dL) 46 L 49 L (75-99) mg/dL Calcium (8.4-10.2) mg/dL Lactate Dehydrogenase (313-618) U/L Total Protein (6.3-8.2) g/dL Albumin (3.5-5.0) g/dL Coronavirus (PCR) Detected A (Not Detectd) 08/04/21 08/04/21 08/04/21 Range/Units 14:25 15:29 16:14 RBC (4.30-5.90) m/uL Hgb (13.0-17.5) gm/dL Hct (39.0-53.0) % MCV (80.0-100.0) fL RDW (11.5-15.5) % Sodium (137-145) mmol/L Potassium (3.5-5.1) mmol/L Chloride (98-107) mmol/L BUN (9-20) mg/dL Creatinine (0.66-1.25) mg/dL Glucose (74-99) mg/dL POC Glucose (mg/dL) 52 L 53 L 63 L (75-99) mg/dL Calcium (8.4-10.2) mg/dL Lactate Dehydrogenase (313-618) U/L Total Protein (6.3-8.2) g/dL Albumin (3.5-5.0) g/dL Coronavirus (PCR) (Not Detectd) 08/04/21 08/04/21 08/04/21 Range/Units 16:32 18:18 20:02 RBC (4.30-5.90) m/uL Hgb (13.0-17.5) gm/dL Hct (39.0-53.0) % MCV (80.0-100.0) fL RDW (11.5-15.5) % Sodium (137-145) mmol/L Potassium (3.5-5.1) mmol/L Chloride (98-107) mmol/L BUN (9-20) mg/dL Creatinine (0.66-1.25) mg/dL Glucose (74-99) mg/dL POC Glucose (mg/dL) 47 L 101 H 164 H (75-99) mg/dL Calcium (8.4-10.2) mg/dL Lactate Dehydrogenase (313-618) U/L Total Protein (6.3-8.2) g/dL Albumin (3.5-5.0) g/dL Coronavirus (PCR) (Not Detectd) 08/04/21 08/05/21 08/05/21 Range/Units 22:02 00:04 02:09 RBC (4.30-5.90) m/uL Hgb (13.0-17.5) gm/dL Hct (39.0-53.0) % MCV (80.0-100.0) fL RDW (11.5-15.5) % Sodium (137-145) mmol/L Potassium (3.5-5.1) mmol/L Chloride (98-107) mmol/L BUN (9-20) mg/dL Creatinine (0.66-1.25) mg/dL Glucose (74-99) mg/dL POC Glucose (mg/dL) 151 H 128 H 150 H (75-99) mg/dL Calcium (8.4-10.2) mg/dL Lactate Dehydrogenase (313-618) U/L Total Protein (6.3-8.2) g/dL Albumin (3.5-5.0) g/dL Coronavirus (PCR) (Not Detectd) 08/05/21 08/05/21 08/05/21 Range/Units 04:12 05:40 07:01 RBC 3.12 L (4.30-5.90) m/uL Hgb 10.1 L (13.0-17.5) gm/dL Hct 31.5 L (39.0-53.0) % MCV 100.9 H (80.0-100.0) fL RDW 16.8 H (11.5-15.5) % Sodium (137-145) mmol/L Potassium (3.5-5.1) mmol/L Chloride (98-107) mmol/L BUN (9-20) mg/dL Creatinine (0.66-1.25) mg/dL Glucose (74-99) mg/dL POC Glucose (mg/dL) 143 H 142 H (75-99) mg/dL Calcium (8.4-10.2) mg/dL Lactate Dehydrogenase (313-618) U/L Total Protein (6.3-8.2) g/dL Albumin (3.5-5.0) g/dL Coronavirus (PCR) (Not Detectd) 08/05/21 08/05/21 Range/Units 07:01 07:07 RBC (4.30-5.90) m/uL Hgb (13.0-17.5) gm/dL Hct (39.0-53.0) % MCV (80.0-100.0) fL RDW (11.5-15.5) % Sodium 129 L (137-145) mmol/L Potassium (3.5-5.1) mmol/L Chloride 95 L (98-107) mmol/L BUN 26 H (9-20) mg/dL Creatinine 1.29 H (0.66-1.25) mg/dL Glucose 147 H (74-99) mg/dL POC Glucose (mg/dL) 150 H (75-99) mg/dL Calcium 7.9 L (8.4-10.2) mg/dL Lactate Dehydrogenase 741 H (313-618) U/L Total Protein 5.5 L (6.3-8.2) g/dL Albumin 2.8 L (3.5-5.0) g/dL Coronavirus (PCR) (Not Detectd) - Imaging and Cardiology Chest x-ray: image reviewed Assessment and Plan Assessment: 1. Hypoglycemia present on admission 2. Positive for COVID-19, remains unvaccinated 3. Triple-vessel coronary artery disease with recent non-STEMI last admission, status post three-vessel CABG 4. Aortic stenosis, status post bioprosthetic aortic valve replacement 5. Chronic systolic heart failure, recent admission for acute heart failure with EF 30-35%, improved post surgery to 50-55% 6. First-degree heart block with preoperative episodes of second and complete heart block 7. Paroxysmal atrial fibrillation, on Eliquis for anticoagulation 8. Recent acute kidney injury 9. History of hypertension with recent hypotension, currently on midodrine 10. Ggo-upuamsp-wipkscltr diabetes, preoperative hemoglobin A1c is 8.6%, on metformin at home with glyburide added at discharge 11. History of hyperlipidemia, treated Plan: 1. Continue low-dose aspirin, statin, beta jose raul 2. Continue amiodarone for A. fib prophylaxis, continue Eliquis her anticoagulation 3. Continue midodrine for now for hypotension. Will wean off. Would like to start ALEJO/ARB for afterload reduction when able 4. Will consult cardiology for further recommendations regarding CHF, medication regimen 5. Blood sugar management per internal medicine. Would recommend against discharging patient on glyburide, patient still needs tight blood sugar control to prevent sternal infection, however need to avoid hypoglycemia as well 6. Continue Lasix. Hep lock fluids when able 7. Will replace calcium and magnesium 8. Continue sternal precautions 9. Patient to shower daily, daily weights 10. Incentive spirometer was ordered, discussed with RN, should be encouraged 11. Consultation was placed to pulmonology for Covid treatment. Appreciate recommendations 12. All of patient's previous follow-up appointments placed on discharge plan 13. More recommendations to follow Time with Patient: Greater than 30
[2021-08-05] MEDS: MIDODRINE 5 MG TAB PO SCH ×2 (08:35→12:29)
[2021-08-05] MEDS: MAGNESIUM SULFATE-D5W PMX 1 GM in DEXTROSE/WATER 1 100ML.BAG IVPB SCH ×3 (08:46→11:29)
[2021-08-05] MEDS ORDERED: CALCIUM GLUCONATE 2 GM in SODIUM CHLORIDE 0.9% 100 ML IVPB ONE (09:00)
--- NOTE | 2021-08-05 09:09 | XR ---
EXAMINATION TYPE: XR chest 1V portable DATE OF EXAM: 08/05/2021 Comparison: 08/04/2021 Clinical History: 75-year-old male post cardiac surgery Findings: Median sternotomy wires are present post CABG clips in the mediastinum. Heart is moderately enlarged. Mild interstitial prominence is similar. The retrocardiac region is underpenetrated and not well ass essed. Possible trace left effusion. Impression: Moderate cardiomegaly. Possible trace left effusion though the retrocardiac region is underpenetrated and not well assessed.
[2021-08-05] MEDS: DEXTROSE 5%-0.9% NACL 1,000 ML IV SCH (10:49)
--- NOTE | 2021-08-05 12:19 | P.CNPUL ---
History of Present Illness Consult date: 08/05/21 Requesting physician: Janes Solares Reason for consult: abnormal CXR/CT Chief complaint: Hypoglycemia. History of present illness: Pulmonary consult dated 08/05/2021. 75-year-old male, who was recently discharged from the hospital on August 02, status post non-ST segment elevation myocardial infarction, and triple-vessel bypass grafting. The patient also had aortic valve replacement, pulmonary vein isolation, exclusion of the left atrial appendage, and intraoperative transesophageal echocardiogram. The surgery was done by Dr. Bingham. The patient was subsequently seen in the emergency department on August 04. He apparently came in because he had fallen, and was confused. It was noted that his blood sugar was only 40. In addition, incidentally, he tested positive for coronavirus infection. He really had minimal pulmonary complaints. Maybe was a bit short of breath yesterday but not short of breath today. He's been on room air the entire time he's been here. His initial chest x-ray showed some mild fluid overload congestion initially, but the more recent chest x-ray is much improved. In addition to coronary disease, he has a history of diabetes, hyperlipidemia, hypertension, and non-ST; elevation myocardial infarction. White count is 4.9, hemoglobin 10.1, hematocrit 31.5, and platelet count 231,000. Sodium 129, potassium 4.4, chlorides 95, CO2 29, anion gap 5, BUN 26, and creatinine 1.29. His N-terminal proBNP was 11,700. Review of Systems REVIEW OF SYSTEMS: CONSTITUTIONAL: Falling. NEUROLOGIC: Confusion. HEENT: [ Negative.] CARDIAC: [Negative.] PULMONARY: Minimal shortness of breath. GI: [Negative.] : [Negative.] RHEUMATOLOGIC: [ Negative.] IMMUNOLOGIC: [ Negative.] ENDOCRINE: [Negative. ] DERMATOLOGIC: [Negative.] Past Medical History Past Medical History: Coronary Artery Disease (CAD), Diabetes Mellitus, Hyperlipidemia, Hypertension, Myocardial Infarction (PR) Additional Past Medical History / Comment(s): Pt recently admitted to [facility] on 07/16/21 with NSTEMI, new cardiomyopathy, acute systolic chf, 1st degree heart block/paroxysmal 2 degree and 3rd degree heart block, hypotension. Pt had cardiac cath/DELVIS/ CABG 3 vessel with aortic valve replacement. Last Myocardial Infarction Date:: 07/16/21 History of Any Multi-Drug Resistant Organisms: None Reported Past Surgical History: Cardiac Valve Replacement, Heart Catheterization With Stent, Hernia Repair Additional Past Surgical History / Comment(s): Right knee surgery CUT OUT CARTILAGE, hernia repair Past Anesthesia/Blood Transfusion Reactions: No Reported Reaction Past Psychological History: No Psychological Hx Reported Smoking Status: Never smoker Past Alcohol Use History: None Reported Past Drug Use History: None Reported - Past Family History Father Additional Family Medical History / Comment(s): AT AGE 84-CANCER OF LARNYX (SMOKER), CARDIAC PROBLEMS Mother Family Medical History: Diabetes Mellitus Additional Family Medical History / Comment(s): AT AGE 83- HAD A PITUITARY TUMOR REMOVED HAD SON CRISIS Sister(s) Family Medical History: Coronary Artery Disease (CAD) Additional Family Medical History / Comment(s): had CABG in her 70s Medications and Allergies Home Medications Medication Instructions Recorded Confirmed Type Aspirin 81 mg PO DAILY #30 chewable 02/06/18 08/04/21 Rx metFORMIN HCL [Glucophage] 1,000 mg PO BID 07/16/21 08/04/21 History Acetaminophen Tab [Tylenol] 650 mg PO Q6HR PRN tab 08/02/21 08/04/21 Rx Apixaban [Eliquis] 5 mg PO BID #60 tab 08/02/21 08/04/21 Rx Atorvastatin [Lipitor] 40 mg PO DAILY #30 tab 08/02/21 08/04/21 Rx Metoprolol Tartrate [Lopressor] 12.5 mg PO BID #60 tab 08/02/21 08/04/21 Rx Midodrine [ProAmatine] 5 mg PO AC-TID #90 tab 08/02/21 08/04/21 Rx Pantoprazole [Protonix] 40 mg PO AC-BRKFST #30 tab 08/02/21 08/04/21 Rx Potassium Chloride 40 meq PO DAILY #240 ml 08/02/21 08/04/21 Rx glyBURIDE [Diabeta] 5 mg PO AC-BID 30 Days #60 tablet 08/02/21 08/04/21 Rx Amiodarone [Cordarone] See Taper PO DIRECTED 08/04/21 08/04/21 History Furosemide [Lasix] See Taper PO DAILY 08/04/21 08/04/21 History Sennosides-Docusate Sodium 2 tab PO HS PRN 08/04/21 08/04/21 History [Senokot-S] Allergies Allergy/AdvReac Type Severity Reaction Status Date / Time No Known Allergies Allergy Verified 08/04/21 11:05 Physical Exam Osteopathic Statement: *. No significant issues noted on an osteopathic structural exam other than those noted in the History and Physical/Consult. Vitals: Vital Signs Temp Pulse Pulse Pulse Resp BP BP 08/05/21 11:00 74 18 127/74 08/05/21 08:29 18 08/05/21 07:30 97.6 F 60 18 129/76 08/05/21 02:06 98.2 F 61 19 08/04/21 20:00 61 15 08/04/21 19:38 98.1 F 61 15 08/04/21 18:25 98.2 F 71 18 08/04/21 15:40 98.9 F 88 18 97/63 BP Pulse Ox 08/05/21 11:00 08/05/21 08:29 08/05/21 07:30 99 08/05/21 02:06 94/53 96 08/04/21 20:00 08/04/21 19:38 115/70 97 08/04/21 18:25 113/64 90 L 08/04/21 15:40 96 Intake and Output 08/04/21 08/05/21 08/05/21 22:59 06:59 14:59 Intake Total 90 120 Output Total 0 500 Balance 90 -380 Intake: Oral 90 120 Output: Urine 500 Stool 0 0 Other: Voiding Method Urinal # Voids 1 1 Weight 92.986 kg 95 kg No acute distress, oriented 3. Currently on room air. Saturations are between 98 and 99%. HEENT examination is grossly unremarkable. Neck supple. Full range of motion. No adenopathy thyromegaly or neck vein distention. Cardiovascular examination reveals regular rhythm rate. S1-S2 normal. No S3 or S4. No discernible murmur noted. Heart rate 74 bpm. Lungs reveal mild to moderate scattered rhonchi. Minimal basilar crackles. No wheezes. Breath sounds equal bilaterally. Abdomen soft bowel sounds are heard. No masses or tenderness. Extremities are intact. No cyanosis clubbing or edema. Skin is without rash or lesion. Neurologic examination is brief but nonfocal. Results - Laboratory Findings CBC and BMP: 08/05/21 07:01 08/05/21 07:01 PT/INR, D-dimer PT 11.8 sec (9.0-12.0) 08/04/21 07:30 INR 1.1 (<1.2) 08/04/21 07:30 Abnormal lab findings: Abnormal Labs 08/04/21 08/04/21 08/04/21 07:19 07:20 07:30 RBC 2.95 L Hgb 9.7 L Hct 29.6 L MCV 100.4 H RDW 17.0 H Lymphocytes # 0.2 L Sodium Potassium Chloride BUN Creatinine Glucose POC Glucose (mg/dL) 25 L 70 L Calcium Lactate Dehydrogenase Total Protein Albumin Coronavirus (PCR) 08/04/21 08/04/21 08/04/21 07:30 08:56 08:57 RBC Hgb Hct MCV RDW Lymphocytes # Sodium 130 L Potassium 3.4 L Chloride BUN 29 H Creatinine 1.28 H Glucose 129 H POC Glucose (mg/dL) 47 L 44 L Calcium 7.2 L Lactate Dehydrogenase Total Protein 5.2 L Albumin 2.7 L Coronavirus (PCR) 08/04/21 08/04/21 08/04/21 11:54 12:23 14:24 RBC Hgb Hct MCV RDW Lymphocytes # Sodium Potassium Chloride BUN Creatinine Glucose POC Glucose (mg/dL) 46 L 49 L Calcium Lactate Dehydrogenase Total Protein Albumin Coronavirus (PCR) Detected A 08/04/21 08/04/21 08/04/21 14:25 15:29 16:14 RBC Hgb Hct MCV RDW Lymphocytes # Sodium Potassium Chloride BUN Creatinine Glucose POC Glucose (mg/dL) 52 L 53 L 63 L Calcium Lactate Dehydrogenase Total Protein Albumin Coronavirus (PCR) 08/04/21 08/04/21 08/04/21 16:32 18:18 20:02 RBC Hgb Hct MCV RDW Lymphocytes # Sodium Potassium Chloride BUN Creatinine Glucose POC Glucose (mg/dL) 47 L 101 H 164 H Calcium Lactate Dehydrogenase Total Protein Albumin Coronavirus (PCR) 08/04/21 08/05/21 08/05/21 22:02 00:04 02:09 RBC Hgb Hct MCV RDW Lymphocytes # Sodium Potassium Chloride BUN Creatinine Glucose POC Glucose (mg/dL) 151 H 128 H 150 H Calcium Lactate Dehydrogenase Total Protein Albumin Coronavirus (PCR) 08/05/21 08/05/21 08/05/21 04:12 05:40 07:01 RBC 3.12 L Hgb 10.1 L Hct 31.5 L MCV 100.9 H RDW 16.8 H Lymphocytes # Sodium Potassium Chloride BUN Creatinine Glucose POC Glucose (mg/dL) 143 H 142 H Calcium Lactate Dehydrogenase Total Protein Albumin Coronavirus (PCR) 08/05/21 08/05/21 07:01 07:07 RBC Hgb Hct MCV RDW Lymphocytes # Sodium 129 L Potassium Chloride 95 L BUN 26 H Creatinine 1.29 H Glucose 147 H POC Glucose (mg/dL) 150 H Calcium 7.9 L Lactate Dehydrogenase 741 H Total Protein 5.5 L Albumin 2.8 L Coronavirus (PCR) - Diagnostic Findings Chest x-ray: image reviewed Assessment and Plan Assessment: Confusion, and subsequent fall secondary to hypoglycemia. Mild fluid overload, based on the symptoms of shortness of breath, and elevated N-terminal proBNP, and his initial chest x-ray. Incidental finding of coronavirus infection, with no significant pulmonary symptoms. Status post three-vessel bypass grafting, and aortic valve replacement, with recent hospital discharge on August 02. Recent non-ST segment elevation myocardial infarction. History of diabetes mellitus. History of hyperlipidemia. History of hypertension. Plan: Plan dated 08/05/2021. From the pulmonary standpoint, the patient's doing well. He is on room air. He was a bit short of breath initially. He has received some Lasix. His chest x- ray my opinion show some mild fluid overload. Patient does not need anything special for his incidental finding of coronavirus infection. We do recommend vitamin C, vitamin D3, and zinc. The patient is not a candidate for Decadron. The patient is already on Eliquis. We will continue to follow make recomm endations were appropriate. Prognosis is guarded. Time with Patient: Greater than 30
[2021-08-05 12:40] LABS: Glucose,Whole Blood 159 mg/dL (75-99)
--- NOTE | 2021-08-05 12:55 | P.CRDCN ---
History of Present Illness History of present illness: HISTORY OF PRESENTING ILLNESS This is a pleasant 75-year-old male with history of diabetes mellitus type 2, hyperlipidemia, hypertension. He was recently in the hospital from 07/16/21- 08/02/21 with NSTEMI, found to have new cardiomyopathy with EF 30-35%, aortic stenosis he underwent 3 vessel CABG and Aortic valve replacement on 07/22/21, paroxysmal atrial fibrillation he is on Eliquis. His EF improved post operatively to 50-55%. He follows with Dr. Mathews. We are consulted for known patient and recent CABG and aortic valve replacement. Patient was brought to the emergency department on 08/04/21 with complaints of altered mental status and fall at home. Found to have a blood sugar of 25. Patient was confused per his , tried to get out of bed and slide down to the floor. His called EMS and his blood sugar was in the 40s. Patient was also incidently found to be positive Covid-19. He denies any chest pain, shortness of breath, lightheadedness or dizziness or palpitations. He was given oral glucose and started on D5 0.9 and his symptoms have improved and blood sugars have improved. CT Brain with no acute intracranial process. Chest x-ray revealed moderate cardiomegaly. REVIEW OF SYSTEMS At the time of my exam: CONSTITUTIONAL: Denies fever or chills. CARDIOVASCULAR: Denies chest pain, shortness of breath, orthopnea, no PND or palpitations. RESPIRATORY: Denies cough. GASTROINTESTINAL: Denies abdominal pain, diarrhea, constipation, nausea or vomiting. MUSCULOSKELETAL: Denies myalgias. NEUROLOGIC: Denies numbness, tingling or weakness. ENDOCRINE: Denies fatigue, weight change, polydipsia or polyurina. GENITOURINARY: Denies burning, hematuria or urgency with micturation. HEMATOLOGIC: Denies history of anemia or bleeding. PHYSICAL EXAMINATION Vital signs reviewed. CONSTITUTIONAL: No apparent distress. HEENT: Neck Supple. No JVD. No carotid bruit. CHEST EXAMINATION: Lungs are clear to auscultation. No chest wall tenderness is noted on palpation or with deep breathing. HEART EXAMINATION: Regular rate and rhythm. S1, S2 heard. No murmurs, gallops or rub. ABDOMEN: Soft, nontender. Positive bowel sounds. EXTREMITIES: 2+ peripheral pulses, no lower extremity edema and no calf tenderness. NEUROLOGIC EXAMINATION: Patient is awake, alert and oriented x3. ASSESSMENT Hypoglycemia Altered mental status, improved Covid-19 Infection Chronic heart failure with preserved ejection fraction, improved EF 50-55% Recent admission with ischemic cardiomyopathy, with improved EF Recent Non-STEMI Status post 3 vessel CABG Aortic stenosis status post aortic valve replacement Paroxysmal atrial fibrillation on Eliquis First-degree heart block, paroxysmal episodes of second-degree and complete heart block last admission Diabetes mellitus type 2 Hyperlipidemia Hypertension PLAN Recommend continuing patient's home medication amiodarone, aspirin, eliquis, aspirin, atorvastatin, metoprolol Would continue PO Lasix at this time Recommend decreasing midodrine before starting ACEI/ARB Further recommendations based on clinical course Past Medical History Past Medical History: Coronary Artery Disease (CAD), Diabetes Mellitus, Hyperlipidemia, Hypertension, Myocardial Infarction (ND) Additional Past Medical History / Comment(s): Pt recently admitted to [facility] on 07/16/21 with NSTEMI, new cardiomyopathy, acute systolic chf, 1st degree heart block/paroxysmal 2 degree and 3rd degree heart block, hypotension. Pt had cardiac cath/DELVIS/ CABG 3 vessel with aortic valve replacement. Last Myocardial Infarction Date:: 07/16/21 History of Any Multi-Drug Resistant Organisms: None Reported Past Surgical History: Cardiac Valve Replacement, Heart Catheterization With Stent, Hernia Repair Additional Past Surgical History / Comment(s): Right knee surgery CUT OUT CARTILAGE, hernia repair Past Anesthesia/Blood Transfusion Reactions: No Reported Reaction Past Psychological History: No Psychological Hx Reported Smoking Status: Never smoker Past Alcohol Use History: None Reported Past Drug Use History: None Reported - Past Family History Father Additional Family Medical History / Comment(s): AT AGE 84-CANCER OF LARNYX (SMOKER), CARDIAC PROBLEMS Mother Family Medical History: Diabetes Mellitus Additional Family Medical History / Comment(s): AT AGE 83- HAD A PITUITARY TUMOR REMOVED HAD SON CRISIS Sister(s) Family Medical History: Coronary Artery Disease (CAD) Additional Family Medical History / Comment(s): had CABG in her 70s Medications and Allergies Home Medications Medication Instructions Recorded Confirmed Type Aspirin 81 mg PO DAILY #30 chewable 02/06/18 08/04/21 Rx metFORMIN HCL [Glucophage] 1,000 mg PO BID 07/16/21 08/04/21 History Acetaminophen Tab [Tylenol] 650 mg PO Q6HR PRN tab 08/02/21 08/04/21 Rx Apixaban [Eliquis] 5 mg PO BID #60 tab 08/02/21 08/04/21 Rx Atorvastatin [Lipitor] 40 mg PO DAILY #30 tab 08/02/21 08/04/21 Rx Metoprolol Tartrate [Lopressor] 12.5 mg PO BID #60 tab 08/02/21 08/04/21 Rx Midodrine [ProAmatine] 5 mg PO AC-TID #90 tab 08/02/21 08/04/21 Rx Pantoprazole [Protonix] 40 mg PO AC-BRKFST #30 tab 08/02/21 08/04/21 Rx Potassium Chloride 40 meq PO DAILY #240 ml 08/02/21 08/04/21 Rx glyBURIDE [Diabeta] 5 mg PO AC-BID 30 Days #60 tablet 08/02/21 08/04/21 Rx Amiodarone [Cordarone] See Taper PO DIRECTED 08/04/21 08/04/21 History Furosemide [Lasix] See Taper PO DAILY 08/04/21 08/04/21 History Sennosides-Docusate Sodium 2 tab PO HS PRN 08/04/21 08/04/21 History [Senokot-S] Allergies Allergy/AdvReac Type Severity Reaction Status Date / Time No Known Allergies Allergy Verified 08/04/21 11:05 Physical Exam Vitals: Vital Signs Temp Pulse Pulse Pulse Resp BP BP 08/05/21 11:00 74 18 127/74 08/05/21 08:29 18 08/05/21 07:30 97.6 F 60 18 129/76 08/05/21 02:06 98.2 F 61 19 08/04/21 20:00 61 15 08/04/21 19:38 98.1 F 61 15 08/04/21 18:25 98.2 F 71 18 08/04/21 15:40 98.9 F 88 18 97/63 BP Pulse Ox 08/05/21 11:00 08/05/21 08:29 08/05/21 07:30 99 08/05/21 02:06 94/53 96 08/04/21 20:00 08/04/21 19:38 115/70 97 08/04/21 18:25 113/64 90 L 08/04/21 15:40 96 Intake and Output 08/04/21 08/05/21 08/05/21 22:59 06:59 14:59 Intake Total 90 120 Output Total 0 500 Balance 90 -380 Intake: Oral 90 120 Output: Urine 500 Stool 0 0 Other: Voiding Method Urinal # Voids 1 1 Weight 92.986 kg 95 kg Results 08/05/21 07:01 08/05/21 07:01 Cardiac Enzymes 08/05/21 Range/Units 07:01 AST 26 (17-59) U/L Lactate Dehydrogenase 741 H (313-618) U/L CBC 08/05/21 Range/Units 07:01 WBC 4.9 (3.8-10.6) k/uL RBC 3.12 L (4.30-5.90) m/uL Hgb 10.1 L (13.0-17.5) gm/dL Hct 31.5 L (39.0-53.0) % Plt Count 231 (150-450) k/uL Comprehensive Metabolic Panel 08/05/21 Range/Units 07:01 Sodium 129 L (137-145) mmol/L Potassium 4.4 (3.5-5.1) mmol/L Chloride 95 L (98-107) mmol/L Carbon Dioxide 29 (22-30) mmol/L BUN 26 H (9-20) mg/dL Creatinine 1.29 H (0.66-1.25) mg/dL Glucose 147 H (74-99) mg/dL Calcium 7.9 L (8.4-10.2) mg/dL AST 26 (17-59) U/L ALT 34 (4-49) U/L Alkaline Phosphatase 69 (38-126) U/L Total Protein 5.5 L (6.3-8.2) g/dL Albumin 2.8 L (3.5-5.0) g/dL Current Medications Generic Name Dose Route Start Last Admin Trade Name Freq PRN Reason Stop Dose Admin Acetaminophen 650 mg 08/04/21 13:28 Acetaminophen Tab 325 Mg Tab PO Q6HR PRN Fever and/ or Pain Amiodarone HCl 200 mg 08/06/21 09:00 Amiodarone 200 Mg Tab PO DAILY BISHOP Apixaban 5 mg 08/04/21 21:00 08/05/21 07:59 Apixaban 5 Mg Tab PO 5 mg BID BISHOP Administration Protocol Aspirin 81 mg 08/05/21 09:00 08/05/21 08:00 Aspirin 81 Mg PO 81 mg DAILY [facility] Administration Atorvastatin Calcium 40 mg 08/05/21 09:00 08/05/21 08:00 Atorvastatin 40 Mg Tab PO 40 mg DAILY BISHOP Administration Cholecalciferol 25 mcg 08/05/21 09:00 08/05/21 07:59 Cholecalciferol 25 Mcg (1000 Iu) Tablet PO 25 mcg DAILY BISHOP Administration Furosemide 40 mg 08/05/21 09:00 08/05/21 07:59 Furosemide 40 Mg Tab PO 40 mg DAILY BISHOP Administration Insulin Aspart 0 unit 08/05/21 12:30 Insulin Aspart (Novolog) 100 Unit/Ml Vial SQ ACHS [facility] Protocol Metoprolol Tartrate 12.5 mg 08/04/21 21:00 08/05/21 08:07 Metoprolol Tartrate 12.5 Mg Tab PO 12.5 mg BID [facility] Administration Midodrine 5 mg 08/04/21 17:30 08/05/21 12:29 Midodrine 5 Mg Tab PO Not Given AC-TID [facility] Naloxone HCl 0.2 mg 08/04/21 12:08 Naloxone 0.4 Mg/Ml 1 Ml Vial IV Q2M PRN Opioid Reversal Pantoprazole Sodium 40 mg 08/05/21 07:30 08/05/21 07:59 Pantoprazole 40 Mg Tablet PO 40 mg AC-BRKFST [facility] Administration Potassium Chloride 40 meq 08/05/21 09:00 08/05/21 07:59 Potassium Chloride Er 20 Meq Tab.Er PO 40 meq DAILY [facility] Administration Senna/Docusate Sodium 2 each 08/04/21 13:29 08/04/21 21:46 Sennosides-Docusate Sodium 1 Each Tab PO 2 each HS PRN Administration Constipation Sodium Chloride 10 ml 08/04/21 21:00 08/04/21 21:48 Sodium Chloride 0.9% Flush 10 Ml Syringe IV 10 ml BID [facility] Administration Zinc Sulfate 220 mg 08/05/21 09:00 08/05/21 07:59 Zinc Sulfate 220 Mg Cap PO 220 mg DAILY [facility] Administration Intake and Output 08/04/21 08/05/21 08/05/21 22:59 06:59 14:59 Intake Total 90 120 Output Total 0 500 Balance 90 -380 Intake: Oral 90 120 Output: Urine 500 Stool 0 0 Other: Voiding Method Urinal # Voids 1 1 Weight 92.986 kg 95 kg 08/05/21 07:01 08/05/21 07:01
[2021-08-05] MEDS: INSULIN ASPART (NovoLOG) 100 UNIT/ML VIAL SQ SCH ×3 (12:59→21:17)
[2021-08-05 17:16] LABS: Glucose,Whole Blood 166 mg/dL (75-99)
[2021-08-05 19:11] LABS: C Reactive Protein 5.6 mg/dL (0.00-0.80)
[2021-08-05 20:59] LABS: Glucose,Whole Blood 203 mg/dL (75-99)
--- NOTE | 2021-08-05 23:22 | P.PN ---
Subjective Progress Note Date: 08/05/21 Patient is a 75-year-old male with a known history of coronary artery disease, hypertension, hyperlipidemia, diabetes type 2 [id number] and severe aortic stenosis who recently had triple-vessel CABG and aortic valve replacement and was discharged from the hospital on 08/02/2021. Postoperatively patient developed acute systolic heart failure and paroxysmal episodes of heart block and probable atrial fibrillation and acute kidney injury. Patient did improve clinically and was discharged from the hospital. Patient certainly side of the bed and suddenly had fall and landed on his buttocks. EMS was called due to altered mental status and fall. Blood sugar noted to be in 40s. Patient was given oral glucose and was brought to the hospital. Patient denied any hitting his head. Denied any fever or chills. No cough or sputum production. No complaints of chest pain. No nausea vomiting abdominal pain or diarrhea. Patient has been having poor appetite since discharge and has not been eating very well. Currently patient is awake alert and oriented x3. Does take Metformin 1000 mg twice daily and glyburide at home. CT head and cervical spine showed no acute intracranial abnormality seen. No acute fracture of the cervical spine. Moderate spondylotic change with degenerative grade 1 anterior listhesis at C4-C5. Moderate to severe right maxillary sinus disease. Chest x-ray showed possible left lower lobe atelectasis versus pneumonia and associated effusion difficult to exclude interstitial edema. Exam is somewhat expiratory and rotated follow-up suggested. Laboratory showed WBC 6.8 hemoglobin 9.7 and MCV 100.4 platelets 246 Lymphocytes 0.2 Sodium 130 potassium 3.4 chloride 100 BUN 29 and creatinine 1.28 blood sugar is 129 calcium 7.2 albumin 2.7 Coronavirus PCR detected. 08/05/2021 Patient is seen and evaluated this morning currently lying in bed in no acute distress. Patient is alert and oriented x 3. Patient was maintained on IV dextrose and will discontinue as blood sugars improved. Will hold oral anti- diabetic agents for now and add sliding scale as needed. Patient is being followed by CT surgery for recent CABG and continues on oral lasix. Pulmonary and cardiology also following. Patient was found to be positive for Covid 19 and states experiencing no symptoms. Patient continues on room air and denies shortness of breath. Patient is afebrile. Patient will continue eliquis and vitamin and zinc being added. No need for steroids. Encouraged increase activity as tolerated. Chest xray ordered today. Labs: WBC is 4.9, hgb is 10.1, platelets are 231, sodium is 129, potassium is 4.4, bun is 26, cr is 1.29, mag is 1.9, ldh is 741, crp is 5.6, [place] [address] Review of systems: Constitutional: No reports of fatigue, fever, or chills Cardiovascular: No reports of chest pain or palpitations Respiratory: No reports of shortness of breath or cough GI: No reports of nausea, vomiting, or diarrhea : No reports of dysuria or retention Neurovascular: No reports of weakness or numbness All medications have been reviewed Active Medications Acetaminophen (Acetaminophen Tab 325 Mg Tab) 650 mg PO Q6HR PRN PRN Reason: Fever and/ or Pain Amiodarone HCl (Amiodarone 200 Mg Tab) 200 mg PO DAILY [facility] Apixaban (Apixaban 5 Mg Tab) 5 mg PO BID [facility]; Protocol Last Admin: 08/05/21 07:59 Dose: 5 mg Documented by: Aspirin (Aspirin 81 Mg) 81 mg PO DAILY [facility] Last Admin: 08/05/21 08:00 Dose: 81 mg Documented by: Atorvastatin Calcium (Atorvastatin 40 Mg Tab) 40 mg PO DAILY [facility] Last Admin: 08/05/21 08:00 Dose: 40 mg Documented by: Cholecalciferol (Cholecalciferol 25 Mcg (1000 Iu) Tablet) 25 mcg PO DAILY [facility] Last Admin: 08/05/21 07:59 Dose: 25 mcg Documented by: Furosemide (Furosemide 40 Mg Tab) 40 mg PO DAILY [facility] Last Admin: 08/05/21 07:59 Dose: 40 mg Documented by: Insulin Aspart (Insulin Aspart (Novolog) 100 Unit/Ml Vial) 0 unit SQ [facility]; Protocol Last Admin: 08/05/21 12:59 Dose: 1 unit Documented by: Metoprolol Tartrate (Metoprolol Tartrate 12.5 Mg Tab) 12.5 mg PO BID [facility] Last Admin: 08/05/21 08:07 Dose: 12.5 mg Documented by: Naloxone HCl (Naloxone 0.4 Mg/Ml 1 Ml Vial) 0.2 mg IV Q2M PRN PRN Reason: Opioid Reversal Pantoprazole Sodium (Pantoprazole 40 Mg Tablet) 40 mg PO AC-BRKFST [facility] Last Admin: 08/05/21 07:59 Dose: 40 mg Documented by: Potassium Chloride (Potassium Chloride Er 20 Meq Tab.Er) 40 meq PO DAILY [facility] Last Admin: 08/05/21 07:59 Dose: 40 meq Documented by: Senna/Docusate Sodium (Sennosides-Docusate Sodium 1 Each Tab) 2 each PO HS PRN PRN Reason: Constipation Last Admin: 08/04/21 21:46 Dose: 2 each Documented by: Sodium Chloride (Sodium Chloride 0.9% Flush 10 Ml Syringe) 10 ml IV BID [facility] Last Admin: 08/04/21 21:48 Dose: 10 ml Documented by: Zinc Sulfate (Zinc Sulfate 220 Mg Cap) 220 mg PO DAILY [facility] Last Admin: 08/05/21 07:59 Dose: 220 mg Documented by: PHYSICAL EXAMINATION: Patient is lying in the bed comfortably, no acute distress, awake alert and oriented.. HEENT: Normocephalic. Neck is supple. Pupils reactive. Nostrils clear. Oral cavity is moist. Neck reveals no JVD, carotid bruits, or thyromegaly. CHEST EXAMINATION: Trachea is central. Symmetrical expansion. Bibasilar diminished sounds. Scattered coarse sounds. No wheezing or rhonchi.. CARDIAC: Normal S1, S2 with no gallops. No murmurs ABDOMEN: Soft. obese. Bowel sounds normal. No organomegaly. No abdominal bruits. Extremities: reveal no edema. No clubbing or cyanosis Neurologically awake, alert, oriented x3 with well-coordinated movements. No focal deficits noted Skin: No rash or skin lesions. Psychiatric: Cooperative. Non-suicidal Musculoskeletal: No joint swelling or deformity. Normal range of motion. Assessment: Altered mental status due to hypoglycemia with blood sugar in 40s, improved Status post fall. Acute COVID-19 infection. Patient is not vaccinated. Hypovolemic hyponatremia Acute kidney injury likely prerenal Hypokalemia, improved Recent history of triple-vessel CABG and aortic valve replacement. Discharged on 08/02/2020 Chronic CHF with systolic dysfunction ejection fraction 30 to 35% improved to 50 to 55% post surgery Paroxysmal atrial fibrillation on anticoagulation with Eliquis Diabetes type 2 [id number]. On Metformin and glyburide at home. A1c 8.6 Hypertension. Patient has been hypotensive and currently maintained on midodrine Hyperlipidemia DVT prophylaxis currently on Eliquis. full code Plan: Patient was given D50 in the ER. blood sugars trending up and will discontinue IV fluids. Add sliding scale as needed and will resume metformin on discharge. Monitor blood sugar closely. Metformin and glyburide on hold currently. Patient is currently on room air. Continue with anticoagulation and multivitamin supplementation. Vitamin and zinc supplements ordered. Monitor respiratory status closely. Continue with aspirin statins and metoprolol. CT surgery and pulmonary was consulted. Chest xray shows moderate cardiomegaly with possible trace left pleural effusion. Will continue oral Lasix. Continue to follow closely. Prognosis is guarded at this time. Encouraged increased activity as tolerated. Possible discharge in 24 hours. Objective - Vital Signs Vital signs: Vital Signs Temp 97.6 F 08/05/21 07:30 Pulse 60 08/05/21 07:30 Resp 18 08/05/21 08:29 BP 129/76 08/05/21 07:30 Pulse Ox 99 08/05/21 07:30 Intake & Output 08/04/21 08/05/21 08/05/21 18:59 06:59 18:59 Intake Total 90 120 Output Total 0 0 0 Balance 90 0 120 Weight 92.986 kg 95 kg Intake: Oral 90 120 Output: Stool 0 0 0 Other: Voiding Method Urinal # Voids 1 1 1 - Labs CBC & Chem 7: 08/05/21 07:01 08/05/21 07:01 Labs: Abnormal Lab Results - Last 24 Hours (Table) 08/04/21 08/04/21 08/04/21 Range/Units 11:54 12:23 14:24 RBC (4.30-5.90) m/uL Hgb (13.0-17.5) gm/dL Hct (39.0-53.0) % MCV (80.0-100.0) fL RDW (11.5-15.5) % Sodium (137-145) mmol/L Chloride (98-107) mmol/L BUN (9-20) mg/dL Creatinine (0.66-1.25) mg/dL Glucose (74-99) mg/dL POC Glucose (mg/dL) 46 L 49 L (75-99) mg/dL Calcium (8.4-10.2) mg/dL Lactate Dehydrogenase (313-618) U/L Total Protein (6.3-8.2) g/dL Albumin (3.5-5.0) g/dL Coronavirus (PCR) Detected A (Not Detectd) 08/04/21 08/04/21 08/04/21 Range/Units 14:25 15:29 16:14 RBC (4.30-5.90) m/uL Hgb (13.0-17.5) gm/dL Hct (39.0-53.0) % MCV (80.0-100.0) fL RDW (11.5-15.5) % Sodium (137-145) mmol/L Chloride (98-107) mmol/L BUN (9-20) mg/dL Creatinine (0.66-1.25) mg/dL Glucose (74-99) mg/dL POC Glucose (mg/dL) 52 L 53 L 63 L (75-99) mg/dL Calcium (8.4-10.2) mg/dL Lactate Dehydrogenase (313-618) U/L Total Protein (6.3-8.2) g/dL Albumin (3.5-5.0) g/dL Coronavirus (PCR) (Not Detectd) 08/04/21 08/04/21 08/04/21 Range/Units 16:32 18:18 20:02 RBC (4.30-5.90) m/uL Hgb (13.0-17.5) gm/dL Hct (39.0-53.0) % MCV (80.0-100.0) fL RDW (11.5-15.5) % Sodium (137-145) mmol/L Chloride (98-107) mmol/L BUN (9-20) mg/dL Creatinine (0.66-1.25) mg/dL Glucose (74-99) mg/dL POC Glucose (mg/dL) 47 L 101 H 164 H (75-99) mg/dL Calcium (8.4-10.2) mg/dL Lactate Dehydrogenase (313-618) U/L Total Protein (6.3-8.2) g/dL Albumin (3.5-5.0) g/dL Coronavirus (PCR) (Not Detectd) 08/04/21 08/05/21 08/05/21 Range/Units 22:02 00:04 02:09 RBC (4.30-5.90) m/uL Hgb (13.0-17.5) gm/dL Hct (39.0-53.0) % MCV (80.0-100.0) fL RDW (11.5-15.5) % Sodium (137-145) mmol/L Chloride (98-107) mmol/L BUN (9-20) mg/dL Creatinine (0.66-1.25) mg/dL Glucose (74-99) mg/dL POC Glucose (mg/dL) 151 H 128 H 150 H (75-99) mg/dL Calcium (8.4-10.2) mg/dL Lactate Dehydrogenase (313-618) U/L Total Protein (6.3-8.2) g/dL Albumin (3.5-5.0) g/dL Coronavirus (PCR) (Not Detectd) 08/05/21 08/05/21 08/05/21 Range/Units 04:12 05:40 07:01 RBC 3.12 L (4.30-5.90) m/uL Hgb 10.1 L (13.0-17.5) gm/dL Hct 31.5 L (39.0-53.0) % MCV 100.9 H (80.0-100.0) fL RDW 16.8 H (11.5-15.5) % Sodium (137-145) mmol/L Chloride (98-107) mmol/L BUN (9-20) mg/dL Creatinine (0.66-1.25) mg/dL Glucose (74-99) mg/dL POC Glucose (mg/dL) 143 H 142 H (75-99) mg/dL Calcium (8.4-10.2) mg/dL Lactate Dehydrogenase (313-618) U/L Total Protein (6.3-8.2) g/dL Albumin (3.5-5.0) g/dL Coronavirus (PCR) (Not Detectd) 08/05/21 08/05/21 Range/Units 07:01 07:07 RBC (4.30-5.90) m/uL Hgb (13.0-17.5) gm/dL Hct (39.0-53.0) % MCV (80.0-100.0) fL RDW (11.5-15.5) % Sodium 129 L (137-145) mmol/L Chloride 95 L (98-107) mmol/L BUN 26 H (9-20) mg/dL Creatinine 1.29 H (0.66-1.25) mg/dL Glucose 147 H (74-99) mg/dL POC Glucose (mg/dL) 150 H (75-99) mg/dL Calcium 7.9 L (8.4-10.2) mg/dL Lactate Dehydrogenase 741 H (313-618) U/L Total Protein 5.5 L (6.3-8.2) g/dL Albumin 2.8 L (3.5-5.0) g/dL Coronavirus (PCR) (Not Detectd)
--- NOTE | 2021-08-06 06:52 | XR ---
EXAMINATION TYPE: XR chest 1V portable DATE OF EXAM: 08/06/2021 COMPARISON: NONE HISTORY: Covid pneumonia, post CABG surgery. TECHNIQUE: Single frontal view of the chest is obtained. FINDINGS: Postsurgical changes of CABG surgery. The heart is markedly enlarged but the pulmonary vasculature does not appear congested. There is no p neumothorax or large pleural effusion. The right lung is clear. The retrocardiac region is limited due to the cardiomegaly. Mild atelectasis or other infiltrate not excluded. Overall there is been no interval change. IMPRESSION: No significant interval change.
[2021-08-06 07:31] LABS: Glucose,Whole Blood 120 mg/dL (75-99)
[2021-08-06] MEDS: INSULIN ASPART (NovoLOG) 100 UNIT/ML VIAL SQ SCH ×4 (08:00→20:32)
[2021-08-06] MEDS: ZINC SULFATE 220 MG CAP PO SCH (08:15)
[2021-08-06] MEDS: POTASSIUM CHLORIDE ER 20 MEQ TAB.ER PO SCH (08:15)
[2021-08-06] MEDS: ATORVASTATIN 40 MG TAB PO SCH (08:16)
[2021-08-06] MEDS: METOPROLOL TARTRATE 12.5 MG TAB PO SCH ×2 (08:16→20:21)
[2021-08-06] MEDS: PANTOPRAZOLE 40 MG TABLET PO SCH (08:16)
[2021-08-06] MEDS: APIXABAN 5 MG TAB PO SCH ×2 (08:16→20:32)
[2021-08-06] MEDS: CHOLECALCIFEROL 25 MCG (1000 IU) TABLET PO SCH (08:16)
[2021-08-06] MEDS: AMIODARONE 200 MG TAB PO SCH (08:16)
[2021-08-06] MEDS: FUROSEMIDE 40 MG TAB PO SCH (08:16)
[2021-08-06] MEDS: ASPIRIN 81 MG PO SCH (08:16)
--- NOTE | 2021-08-06 08:22 | P.PN ---
Subjective Progress Note Date: 08/06/21 Principal diagnosis: Hypoglycemia present on admission, positive for COVID-19, remains unvaccinated. Previous medical history of triple-vessel coronary artery disease with recent non-STEMI last admission, status post three-vessel CABG, aortic stenosis, status post bioprosthetic aortic valve replacement, chronic systolic heart failure, recent admission for acute heart failure with EF 30-35%, improved post surgery to 50-55%, first-degree heart block with preoperative episodes of second and complete heart block, paroxysmal atrial fibrillation on Eliquis anticoagulation, recent acute kidney injury, hypertension with recent hypotension, amx-ijfiwyi-dwpcvnewh diabetes, hyperlipidemia The patient was seen and examined this morning laying in bed in no acute distress. Continues to feel better. Denies any pain or shortness of breath. No confusion present. Patient is oxygenating well on room air. He has been ambulatory in his room. Blood sugars have been well controlled cough IV dextrose. Patient has not yet been restarted on his metformin to assess how his blood sugar will react. Otherwise no new concerns Objective - Vital Signs Vital signs: Vital Signs Temp 97.9 F 08/06/21 07:00 Pulse 50 L 08/06/21 07:00 Resp 18 08/06/21 07:00 BP 118/70 08/06/21 07:00 Pulse Ox 94 L 08/06/21 07:00 Intake & Output 08/05/21 08/06/21 08/06/21 18:59 06:59 18:59 Intake Total 238 Output Total 900 Balance -662 Weight 95.7 kg Intake: Oral 238 Output: Urine 900 Stool 0 Other: Voiding Method Urinal Urinal # Voids 1 2 - Exam CONSTITUTIONAL: Appears comfortable, cooperative, no acute distress RESPIRATORY: Lungs sounds diminished bilaterally. Respirations even, nonlabored. Currently on room air with oxygen saturation 94%. Strong cough. CARDIOVASCULAR: S1, S2 present. Regular rate and rhythm. Sternum stable. Palpable peripheral pulses bilaterally. Trace bilateral lower extremity edema present, left greater than right. No calf pain or tenderness noted. Heart hugg er in place with patient demonstrating appropriate use. Antiembolism stockings present. GASTROINTESTINAL: Abdomen soft, nontender, nondistended. Active bowel sounds present 4 quadrants. Tolerating diet. GENITOURINARY: Continues to void although amount not documented INTEGUMENTARY: Skin is warm and dry with evidence of good perfusion. Anterior chest incision well approximated. Bilateral lower extremity EVH site well approximated NEUROLOGIC: Cranial nerves II through XII intact MUSKULOSKELETAL: Able to move all extremities, strength equal bilaterally, gait normal PSYCHIATRIC: Alert and oriented to person place and time, appropriate affect, intact judgment and insight - Allied health notes Allied health notes reviewed: nursing - Labs CBC & Chem 7: 08/05/21 07:01 08/05/21 07:01 Labs: Abnormal Lab Results - Last 24 Hours (Table) 08/05/21 08/05/21 08/05/21 Range/Units 07:01 12:38 17:15 POC Glucose (mg/dL) 159 H 166 H (75-99) mg/dL C-Reactive Protein 5.60 H (0.00-0.80) mg/dL 08/05/21 08/06/21 Range/Units 20:58 07:20 POC Glucose (mg/dL) 203 H 120 H (75-99) mg/dL C-Reactive Protein (0.00-0.80) mg/dL - Imaging and Cardiology Chest x-ray: report reviewed, image reviewed Assessment and Plan Assessment: 1. Hypoglycemia present on admission 2. Positive for COVID-19, remains unvaccinated 3. Triple-vessel coronary artery disease with recent non-STEMI last admission, status post three-vessel CABG 4. Aortic stenosis, status post bioprosthetic aortic valve replacement 5. Chronic systolic heart failure, recent admission for acute heart failure with EF 30-35%, improved post surgery to 50-55% 6. First-degree heart block with preoperative episodes of second and complete heart block 7. Paroxysmal atrial fibrillation, on Eliquis for anticoagulation 8. Recent acute kidney injury 9. History of hypertension with recent hypotension, currently on midodrine 10. Wev-riockaz-dkevxnvku diabetes, preoperative hemoglobin A1c is 8.6%, on metformin at home with glyburide added at discharge 11. History of hyperlipidemia, treated Plan: 1. Continue low-dose aspirin, statin, beta jose raul 2. Continue amiodarone for A. fib prophylaxis, continue Eliquis her anticoagulation 3. Midodrine discontinued yesterday. Would like to start ALEJO/ARB for afterload reduction when able 4. Cardiology consulted for further recommendations regarding CHF, medication regimen 5. Blood sugar management per internal medicine. Would recommend against discharging patient on glyburide, patient still needs tight blood sugar control to prevent sternal infection, however need to avoid hypoglycemia as well. Would recommend starting metformin inpatient to assess blood sugar tolerance 6. Continue Lasix 7. Continue sternal precautions 8. Patient to shower daily, daily weights 9. Encourage incentive spirometry use 10. All of patient's previous follow-up appointments placed on discharge plan 11. Patient may be discharged from cardiothoracic surgery standpoint once blood sugars well-regulated on metformin 12. More recommendations to follow Time with Patient: Greater than 30
--- NOTE | 2021-08-06 08:52 | P.PN ---
Subjective Progress Note Date: 08/06/21 Principal diagnosis: status post open heart surgery the patient is a pleasant 75-year-old gentleman with coronary artery disease and status post CABG 3 as well as paroxysmal atrial fibrillation and also hypertension and dyslipidemia and diabetes was admitted to the hospital with change in mental status. He was diagnosed COVID-19 infection. The patient was evaluated today. He seems to be asymptomatic from a cardiovascular standpoint of view, he seems to be also neurologically stable with marginally low heart rate in the 50s. He is on oral anticoagulation. No symptoms of chest pain or chest discomfort or shortness of breath at this point. Objective - Vital Signs Vital signs: Vital Signs Temp 97.9 F 08/06/21 07:00 Pulse 50 L 08/06/21 07:00 Resp 18 08/06/21 07:00 BP 118/70 08/06/21 07:00 Pulse Ox 94 L 08/06/21 07:00 Intake & Output 08/05/21 08/06/21 08/06/21 18:59 06:59 18:59 Intake Total 238 Output Total 900 Balance -662 Weight 95.7 kg Intake: Oral 238 Output: Urine 900 Stool 0 Other: Voiding Method Urinal Urinal # Voids 1 2 - Constitutional General appearance: Present: no acute distress - Labs CBC & Chem 7: 08/05/21 07:01 08/05/21 07:01 Labs: Abnormal Lab Results - Last 24 Hours (Table) 08/05/21 08/05/21 08/05/21 Range/Units 07:01 12:38 17:15 POC Glucose (mg/dL) 159 H 166 H (75-99) mg/dL C-Reactive Protein 5.60 H (0.00-0.80) mg/dL 08/05/21 08/06/21 Range/Units 20:58 07:20 POC Glucose (mg/dL) 203 H 120 H (75-99) mg/dL C-Reactive Protein (0.00-0.80) mg/dL Assessment and Plan Assessment: assessment #1 coronary artery disease and status post CABG #2 paroxysmal atrial fibrillation #3 COVID-19 infection #4 multiple comorbid conditions Plan #1 continue the current medical regimen #2 the patient seems to be asymptomatic from the cardiac standpoint of view, #3 the patient seems to be hemodynamically stable #4 follow-up with the patient on when necessary case
[2021-08-06 11:17] LABS: Glucose,Whole Blood 240 mg/dL (75-99)
[2021-08-06 12:42] LABS: HCT 32.2 % (39.6-50.0); MCH 31.3 pg (27.0-32.0); MCHC 31.1 g/dL (32.0-37.0); MCV 100.9 fL (80.0-97.0); Mean Platelet Volume 10.5 fL (9.5-12.2); Platelet Count 234 X 10*3/uL (140-440); RBC 3.19 X 10*6/uL (4.40-5.60); RDW 17.3 % (11.5-14.5); WBC 4.94 X 10*3/uL (4.50-10.00)
[2021-08-06] MEDS: metFORMIN 500 MG TAB PO SCH ×2 (12:45→17:24)
[2021-08-06 13:03] LABS: African American GFR (CKD) 67.2 (60.0-200.0); Anion Gap 10.7 mmol/L (10.00-18.00); BUN/Creat Ratio 19.5 Ratio (12.00-20.00); Blood Urea Nitrogen 23.4 mg/dL (9.0-27.0); Calcium 8.6 mg/dL (8.7-10.3); Carbon Dioxide 27.3 mmol/L (20.0-27.5); Magnesium 2.2 mg/dL (1.5-2.4); Potassium 4.4 mmol/L (3.5-5.5)
--- NOTE | 2021-08-06 15:28 | P.PN ---
Subjective Progress Note Date: 08/06/21 Principal diagnosis: COVID infection. Pulmonary consult dated 08/05/2021. 75-year-old male, who was recently discharged from the hospital on August 02, status post non-ST segment elevation myocardial infarction, and triple-vessel bypass grafting. The patient also had aortic valve replacement, pulmonary vein isolation, exclusion of the left atrial appendage, and intraoperative transesophageal echocardiogram. The surgery was done by Dr. Bingham. The patient was subsequently seen in the emergency department on August 04. He apparently came in because he had fallen, and was confused. It was noted that his blood sugar was only 40. In addition, incidentally, he tested positive for coronavirus infection. He really had minimal pulmonary complaints. Maybe was a bit short of breath yesterday but not short of breath today. He's been on room air the entire time he's been here. His initial chest x-ray showed some mild fluid overload congestion initially, but the more recent chest x-ray is much improved. In addition to coronary disease, he has a history of diabetes, hyperlipidemia, hypertension, and non-ST; elevation myocardial infarction. White count is 4.9, hemoglobin 10.1, hematocrit 31.5, and platelet count 231,000. Sodium 129, potassium 4.4, chlorides 95, CO2 29, anion gap 5, BUN 26, and creatinine 1.29. His N-terminal proBNP was 11,700. Progress note dated 08/06/2021. 75-year-old male, seen in consultation yesterday. He was discharged from the hospital on August 02. At that time, the patient had a non-ST segment elevation myocardial infarction. He also underwent a triple vessel bypass procedure, and aortic valve replacement. The patient was readmitted because he became hypoglycemic. He does have a history of diabetes. We are asked to see him because he tested positive for coronavirus infection. He was not having much in the way of pulmonary complaints. Chest x-ray did not show pneumonia. He is on room air with excellent saturations. Laboratory data today include a white count 4.94, hemoglobin 10, hematocrit 32.2, and platelet count 234,000. Sodium 133, potassium 4.4, chlorides 95, CO2 27, anion gap 11, BUN 23, and crea tinine 1.2. Chest x-ray today showed cardiomegaly, and some minimal basilar atelectasis. Objective - Vital Signs Vital signs: Vital Signs Temp 97.7 F 08/06/21 15:00 Pulse 65 08/06/21 15:00 Resp 16 08/06/21 15:00 BP 115/58 08/06/21 15:00 Pulse Ox 93 L 08/06/21 15:00 Intake & Output 08/05/21 08/06/21 08/06/21 18:59 06:59 18:59 Intake Total 238 Output Total 900 400 Balance -662 -400 Weight 95.7 kg Intake: Oral 238 Output: Urine 900 400 Stool 0 Other: Voiding Method Urinal Urinal Urinal # Voids 1 2 1 # Bowel Movements 1 - Exam No acute distress, oriented 3. Currently on room air. Saturations are 95%. HEENT examination is grossly unremarkable. Neck supple. Full range of motion. No adenopathy thyromegaly or neck vein distention. Cardiovascular examination reveals regular rhythm rate. S1-S2 normal. No S3 or S4. No discernible murmur noted. Heart rate 65 bpm. Lungs reveal mild to moderate scattered rhonchi. Minimal basilar crackles. No wheezes. Breath sounds equal bilaterally. Abdomen soft bowel sounds are heard. No masses or tenderness. Extremities are intact. No cyanosis clubbing or edema. Skin is without rash or lesion. Neurologic examination is brief but nonfocal. - Labs CBC & Chem 7: 08/06/21 08:10 08/06/21 08:10 Labs: Abnormal Lab Results - Last 24 Hours (Table) 08/05/21 08/05/21 08/05/21 Range/Units 07:01 17:15 20:58 RBC (4.40-5.60) X 10*6/uL Hgb (13.0-17.0) g/dL Hct (39.6-50.0) % MCV (80.0-97.0) fL MCHC (32.0-37.0) g/dL RDW (11.5-14.5) % Sodium (135-145) mmol/L Chloride (96-109) mmol/L Est GFR (CKD-EPI)NonAf (60.0-200.0) Glucose (70-110) mg/dL POC Glucose (mg/dL) 166 H 203 H (75-99) mg/dL Calcium (8.7-10.3) mg/dL C-Reactive Protein 5.60 H (0.00-0.80) mg/dL 08/06/21 08/06/21 08/06/21 Range/Units 07:20 08:10 08:10 RBC 3.19 L (4.40-5.60) X 10*6/uL Hgb 10.0 L (13.0-17.0) g/dL Hct 32.2 L (39.6-50.0) % MCV 100.9 H (80.0-97.0) fL MCHC 31.1 L (32.0-37.0) g/dL RDW 17.3 H (11.5-14.5) % Sodium 133 L (135-145) mmol/L Chloride 95 L (96-109) mmol/L Est GFR (CKD-EPI)NonAf 58.0 L (60.0-200.0) Glucose 123 H (70-110) mg/dL POC Glucose (mg/dL) 120 H (75-99) mg/dL Calcium 8.6 L (8.7-10.3) mg/dL C-Reactive Protein (0.00-0.80) mg/dL 08/06/21 Range/Units 11:17 RBC (4.40-5.60) X 10*6/uL Hgb (13.0-17.0) g/dL Hct (39.6-50.0) % MCV (80.0-97.0) fL MCHC (32.0-37.0) g/dL RDW (11.5-14.5) % Sodium (135-145) mmol/L Chloride (96-109) mmol/L Est GFR (CKD-EPI)NonAf (60.0-200.0) Glucose (70-110) mg/dL POC Glucose (mg/dL) 240 H (75-99) mg/dL Calcium (8.7-10.3) mg/dL C-Reactive Protein (0.00-0.80) mg/dL Assessment and Plan Assessment: Confusion, and subsequent fall secondary to hypoglycemia. Mild fluid overload, based on the symptoms of shortness of breath, and elevated N-terminal proBNP, and his initial chest x-ray. Incidental finding of coronavirus infection, with no significant pulmonary symptoms. Status post three-vessel bypass grafting, and aortic valve replacement, with recent hospital discharge on August 02. Recent non-ST segment elevation myocardial infarction. History of diabetes mellitus. History of hyperlipidemia. History of hypertension. Plan: Plan dated 08/05/2021. From the pulmonary standpoint, the patient's doing well. He is on room air. He was a bit short of breath initially. He has received some Lasix. His chest x- ray my opinion show some mild fluid overload. Patient does not need anything special for his incidental finding of coronavirus infection. We do recommend vitamin C, vitamin D3, and zinc. The patient is not a candidate for Decadron. The patient is already on Eliquis. We will continue to follow make recommendations were appropriate. Prognosis is guarded. Plan dated 08/06/2021. The patient's doing well. The patient was recommended to be on vitamins, in cluding vitamin C, vitamin D3, and zinc. The patient is on Eliquis already. No need to place the patient on Decadron. The patient's on room air. He's not having any pulmonary issues. We'll see the patient moving forward only as needed. No additional recommendations are made. Prognosis is thought to be generally good. Time with Patient: Less than 30
[2021-08-06 17:21] LABS: Glucose,Whole Blood 171 mg/dL (75-99)
[2021-08-06 20:24] LABS: Glucose,Whole Blood 195 mg/dL (75-99)
[2021-08-07 03:11] VITALS: TEMP 98
--- NOTE | 2021-08-07 07:01 | XR ---
EXAMINATION TYPE: XR chest 1V portable DATE OF EXAM: 08/07/2021 COMPARISON: 08/06/2021 HISTORY: Postcardiac surgery TECHNIQUE: Single frontal view of the chest is obtained. FINDINGS: Exam is limited by technique. There is been prior CABG surgery. The heart is markedly enlarged, unchanged compared to previous. The right lung remains clear. Left lo wer lobe appears better aerated than on the prior study likely indicating decrease in pleural effusio n and/or atelectasis. Allograft is no pneumothorax. The osseous structures are intact. IMPRESSION: Limited study. Persistent marked cardiomegaly and in increased aeration in the left lung base compared to previous.
[2021-08-07 07:54] LABS: Glucose,Whole Blood 112 mg/dL (75-99)
[2021-08-07] MEDS: INSULIN ASPART (NovoLOG) 100 UNIT/ML VIAL SQ SCH ×2 (07:54→11:24)
[2021-08-07] MEDS: CHOLECALCIFEROL 25 MCG (1000 IU) TABLET PO SCH (07:55)
[2021-08-07] MEDS: ATORVASTATIN 40 MG TAB PO SCH (07:55)
[2021-08-07] MEDS: POTASSIUM CHLORIDE ER 20 MEQ TAB.ER PO SCH (07:55)
[2021-08-07] MEDS: APIXABAN 5 MG TAB PO SCH (07:55)
[2021-08-07] MEDS: FUROSEMIDE 40 MG TAB PO SCH (07:55)
[2021-08-07] MEDS: METOPROLOL TARTRATE 12.5 MG TAB PO SCH (07:55)
[2021-08-07] MEDS: ASPIRIN 81 MG PO SCH (07:55)
[2021-08-07] MEDS: PANTOPRAZOLE 40 MG TABLET PO SCH (07:55)
[2021-08-07] MEDS: ZINC SULFATE 220 MG CAP PO SCH (07:55)
[2021-08-07] MEDS: metFORMIN 500 MG TAB PO SCH (07:55)
[2021-08-07] MEDS: AMIODARONE 200 MG TAB PO SCH (08:12)
--- NOTE | 2021-08-07 08:28 | P.PN ---
Subjective Progress Note Date: 08/07/21 Principal diagnosis: Hypoglycemia present on admission, positive for COVID-19, remains unvaccinated. Previous medical history of triple-vessel coronary artery disease with recent non-STEMI last admission, status post three-vessel CABG, aortic stenosis, status post bioprosthetic aortic valve replacement, chronic systolic heart failure, recent admission for acute heart failure with EF 30-35%, improved post surgery to 50-55%, first-degree heart block with preoperative episodes of second and complete heart block, paroxysmal atrial fibrillation on Eliquis anticoagulation, recent acute kidney injury, hypertension with recent hypotension, [id number] diabetes, hyperlipidemia The patient was seen and examined this morning laying in bed in no acute distress. Continues to feel better. Denies any pain or shortness of breath. No confusion present. Patient is oxygenating well on room air. He has been ambulatory in his room. Blood sugars have been mostly controlled, patient restarted on metformin yesterday. Midodrine was discontinued Sunday, patient's blood pressure pressure has remained stable. No other new concerns Objective - Vital Signs Vital signs: Vital Signs Temp 98.0 F 08/07/21 02:28 Pulse 60 08/07/21 02:28 Resp 18 08/07/21 02:28 BP 121/69 08/07/21 02:28 Pulse Ox 94 L 08/07/21 02:28 Intake & Output 08/06/21 08/07/21 08/07/21 18:59 06:59 18:59 Intake Total 120 Output Total 400 550 Balance -280 -550 Weight 96 kg Intake: Oral 120 Output: Urine 400 550 Other: Voiding Method Urinal Urinal # Voids 2 3 # Bowel Movements 1 1 - Exam CONSTITUTIONAL: Appears comfortable, cooperative, no acute distress RESPIRATORY: Lungs sounds diminished bilaterally. Respirations even, nonlabored. Currently on room air with oxygen saturation 94%. Strong cough. Able to achieve 1500 mL on his incentive spirometry CARDIOVASCULAR: S1, S2 present. Regular rate and rhythm. Sternum stable. Palpable peripheral pulses bilaterally. Bilateral lower extremity edema present. No calf pain or tenderness noted. Heart hugger in place with patient demonstrating appropriate use. Antiembolism stockings not currently on GASTROINTESTINAL: Abdomen soft, nontender, nondistended. Active bowel sounds present 4 quadrants. Tolerating diet. GENITOURINARY: Continues to void INTEGUMENTARY: Skin is warm and dry with evidence of good perfusion. Anterior chest incision well approximated. Bilateral lower extremity EVH site well approximated NEUROLOGIC: Cranial nerves II through XII intact MUSKULOSKELETAL: Able to move all extremities, strength equal bilaterally, gait normal PSYCHIATRIC: Alert and oriented to person place and time, appropriate affect, intact judgment and insight - Allied health notes Allied health notes reviewed: nursing - Labs CBC & Chem 7: 08/06/21 08:10 08/06/21 08:10 Labs: Abnormal Lab Results - Last 24 Hours (Table) 08/06/21 08/06/21 08/06/21 Range/Units 08:10 08:10 11:17 RBC 3.19 L (4.40-5.60) X 10*6/uL Hgb 10.0 L (13.0-17.0) g/dL Hct 32.2 L (39.6-50.0) % MCV 100.9 H (80.0-97.0) fL MCHC 31.1 L (32.0-37.0) g/dL RDW 17.3 H (11.5-14.5) % Sodium 133 L (135-145) mmol/L Chloride 95 L (96-109) mmol/L Est GFR (CKD-EPI)NonAf 58.0 L (60.0-200.0) Glucose 123 H (70-110) mg/dL POC Glucose (mg/dL) 240 H (75-99) mg/dL Calcium 8.6 L (8.7-10.3) mg/dL 08/06/21 08/06/21 08/07/21 Range/Units 17:19 20:23 07:53 RBC (4.40-5.60) X 10*6/uL Hgb (13.0-17.0) g/dL Hct (39.6-50.0) % MCV (80.0-97.0) fL MCHC (32.0-37.0) g/dL RDW (11.5-14.5) % Sodium (135-145) mmol/L Chloride (96-109) mmol/L Est GFR (CKD-EPI)NonAf (60.0-200.0) Glucose (70-110) mg/dL POC Glucose (mg/dL) 171 H 195 H 112 H (75-99) mg/dL Calcium (8.7-10.3) mg/dL - Imaging and Cardiology Chest x-ray: report reviewed, image reviewed Assessment and Plan Assessment: 1. Hypoglycemia present on admission 2. Positive for COVID-19, remains unvaccinated 3. Triple-vessel coronary artery disease with recent non-STEMI last admission, status post three-vessel CABG 4. Aortic stenosis, status post bioprosthetic aortic valve replacement 5. Chronic systolic heart failure, recent admission for acute heart failure with EF 30-35%, improved post surgery to 50-55% 6. First-degree heart block with preoperative episodes of second and complete heart block 7. Paroxysmal atrial fibrillation, on Eliquis for anticoagulation 8. Recent acute kidney injury 9. History of hypertension with recent hypotension, currently on midodrine 10. Lrv-wnlbrjz-dwvjtwmrj diabetes, preoperative hemoglobin A1c is 8.6%, on metformin at home with glyburide added at discharge 11. History of hyperlipidemia, treated Plan: 1. Continue low-dose aspirin, statin, beta jose raul 2. Continue amiodarone at 200 mg daily for A. fib prophylaxis until 08/12/2021 and then stop, continue Eliquis her anticoagulation 3. Will start low-dose ADAMS for afterload reduction today 4. Cardiology and pulmonology have signed off and feel patient can be discharged when okay with other services 5. Blood sugar management per internal medicine. Would recommend against discharging patient on glyburide, patient still needs tight blood sugar control to prevent sternal infection, however need to avoid hypoglycemia as well 6. Continue Lasix 7. Continue sternal precautions 8. Patient to shower daily, daily weights. May Adams wrap lower extremities instead of antiembolism stockings for patient comfort 9. Encourage incentive spirometry use 10. All of patient's previous follow-up appointments placed on discharge plan 11. Patient may be discharged from cardiothoracic surgery standpoint when okay with primary care 12. More recommendations to follow Time with Patient: Greater than 30
[2021-08-07 10:27] LABS: Glucose,Whole Blood 183 mg/dL (75-99)
[2021-08-07 10:29] VITALS: BP 120/71; PULSE 54; RESP 16
[2021-08-07 11:32] LABS: African American GFR (CKD) 55.8 (60.0-200.0); BUN/Creat Ratio 18.21 Ratio (12.00-20.00); Blood Urea Nitrogen 25.5 mg/dL (9.0-27.0); Calcium 8.3 mg/dL (8.7-10.3); Magnesium 2.1 mg/dL (1.5-2.4); Non-African American GFR(CKD) 48.1 (60.0-200.0); Potassium 4.5 mmol/L (3.5-5.5)
--- NOTE | 2021-08-07 11:40 | P.PN ---
Subjective Progress Note Date: 08/07/21 Principal diagnosis: status post open heart surgery the patient is a pleasant 75-year-old gentleman with coronary artery disease and status post CABG 3 as well as paroxysmal atrial fibrillation and also hypertension and dyslipidemia and diabetes was admitted to the hospital with change in mental status. He was diagnosed COVID-19 infection. The patient was evaluated today. He seems to be asymptomatic from a cardiovascular standpoint of view, he seems to be also neurologically stable with marginally low heart rate in the 50s. He is on oral anticoagulation. No symptoms of chest pain or chest discomfort or shortness of breath at this point. From the cardiovascular standpoint of view, we will follow-up with the patient on when necessary case Objective - Vital Signs Vital signs: Vital Signs Temp 98.0 F 08/07/21 07:00 Pulse 54 L 08/07/21 10:28 Resp 16 08/07/21 10:28 BP 120/71 08/07/21 10:28 Pulse Ox 98 08/07/21 10:28 Intake & Output 08/06/21 08/07/21 08/07/21 18:59 06:59 18:59 Intake Total 120 354 Output Total 400 550 0 Balance -280 -550 354 Weight 96 kg Intake: Oral 120 354 Output: Urine 400 550 Stool 0 Other: Voiding Method Urinal Urinal Urinal # Voids 2 3 2 # Bowel Movements 1 1 - Constitutional General appearance: Present: no acute distress - Labs CBC & Chem 7: 08/06/21 08:10 08/07/21 07:33 Labs: Abnormal Lab Results - Last 24 Hours (Table) 08/06/21 08/06/21 08/06/21 Range/Units 08:10 08:10 17:19 RBC 3.19 L (4.40-5.60) X 10*6/uL Hgb 10.0 L (13.0-17.0) g/dL Hct 32.2 L (39.6-50.0) % MCV 100.9 H (80.0-97.0) fL MCHC 31.1 L (32.0-37.0) g/dL RDW 17.3 H (11.5-14.5) % Sodium 133 L (135-145) mmol/L Chloride 95 L (96-109) mmol/L Est GFR (CKD-EPI)AfAm (60.0-200.0) Est GFR (CKD-EPI)NonAf 58.0 L (60.0-200.0) Glucose 123 H (70-110) mg/dL POC Glucose (mg/dL) 171 H (75-99) mg/dL Calcium 8.6 L (8.7-10.3) mg/dL 08/06/21 08/07/21 08/07/21 Range/Units 20:23 07:33 07:53 RBC (4.40-5.60) X 10*6/uL Hgb (13.0-17.0) g/dL Hct (39.6-50.0) % MCV (80.0-97.0) fL MCHC (32.0-37.0) g/dL RDW (11.5-14.5) % Sodium 132 L (135-145) mmol/L Chloride 94 L (96-109) mmol/L Est GFR (CKD-EPI)AfAm 55.8 L (60.0-200.0) Est GFR (CKD-EPI)NonAf 48.1 L (60.0-200.0) Glucose 114 H (70-110) mg/dL POC Glucose (mg/dL) 195 H 112 H (75-99) mg/dL Calcium 8.3 L (8.7-10.3) mg/dL 08/07/21 Range/Units 10:25 RBC (4.40-5.60) X 10*6/uL Hgb (13.0-17.0) g/dL Hct (39.6-50.0) % MCV (80.0-97.0) fL MCHC (32.0-37.0) g/dL RDW (11.5-14.5) % Sodium (135-145) mmol/L Chloride (96-109) mmol/L Est GFR (CKD-EPI)AfAm (60.0-200.0) Est GFR (CKD-EPI)NonAf (60.0-200.0) Glucose (70-110) mg/dL POC Glucose (mg/dL) 183 H (75-99) mg/dL Calcium (8.7-10.3) mg/dL Assessment and Plan Assessment: assessment #1 coronary artery disease and status post CABG #2 paroxysmal atrial fibrillation #3 COVID-19 infection #4 multiple comorbid conditions Plan #1 continue the current medical regimen #2 the patient seems to be asymptomatic from the cardiac standpoint of view, #3 the patient seems to be hemodynamically stable #4 follow-up with the patient on when necessary case
[2021-08-07 11:54] LABS: HCT 29.9 % (39.6-50.0); HGB 9.4 g/dL (13.0-17.0); MCH 31.6 pg (27.0-32.0); MCHC 31.4 g/dL (32.0-37.0); MCV 100.7 fL (80.0-97.0); Mean Platelet Volume 10.5 fL (9.5-12.2); Platelet Count 223 X 10*3/uL (140-440); RBC 2.97 X 10*6/uL (4.40-5.60); RDW 17.1 % (11.5-14.5); WBC 4.36 X 10*3/uL (4.50-10.00)
[2021-08-07] MEDS ORDERED: lisinopriL 5 MG TAB PO SCH (12:00)
== END 2021-08-07 13:50 | disposition home health service (06) ==
LOC: EC 07:12 → 6NMEDSUR 12:09
PROVIDERS: ADMIT Internal Medicine; ATTEND Internal Medicine
DX: E11.649 Type 2 diabetes mellitus with hypoglycemia without coma (principal); U07.1 COVID-19; I11.0 Hypertensive heart disease with heart failure; I50.43 Acute on chronic combined systolic (congestive) and diastolic (congestive) heart failure; I25.5 Ischemic cardiomyopathy; I35.0 Nonrheumatic aortic (valve) stenosis; I44.2 Atrioventricular block, complete; E78.5 Hyperlipidemia, unspecified; N17.9 Acute kidney failure, unspecified; E86.1 Hypovolemia; E87.1 Hypo-osmolality and hyponatremia; E87.6 Hypokalemia; I25.10 Atherosclerotic heart disease of native coronary artery without angina pectoris; I48.0 Paroxysmal atrial fibrillation; J32.0 Chronic maxillary sinusitis; I25.2 Old myocardial infarction; W19.XXXA Unspecified fall, initial encounter; Y92.009 Unspecified place in unspecified non-institutional (private) residence as the place of occurrence of the external cause; M47.22 Other spondylosis with radiculopathy, cervical region; R00.1 Bradycardia, unspecified; N28.9 Disorder of kidney and ureter, unspecified; E66.9 Obesity, unspecified; Z68.29 Body mass index [BMI] 29.0-29.9, adult; Z79.01 Long term (current) use of anticoagulants; Z79.82 Long term (current) use of aspirin; Z79.84 Long term (current) use of oral hypoglycemic drugs; Z79.899 Other long term (current) drug therapy; Z95.1 Presence of aortocoronary bypass graft; Z95.3 Presence of xenogenic heart valve; Z82.49 Family history of ischemic heart disease and other diseases of the circulatory system; Z83.3 Family history of diabetes mellitus; Z80.1 Family history of malignant neoplasm of trachea, bronchus and lung
CPT/HCPCS: 99285; 96375; 96376; 96365; 96366 ×2; 96367; 36415; 97116 ×2; 97162; 97166; 82747; 83880; 80053 ×2; 80048 ×2; 82607; 83615; 83735 ×3; 85025; 85027 ×3; 85610; 85730; 86140; 87635; 71045 ×4; 72125; 70450; G0378 ×4; J3475; J0610

== ENCOUNTER 2021-09-08 20:18 | Emergency (ER) | payer OTHER ==
[2021-09-08 20:35] VITALS: BP 104/68; PULSE 79; RESP 16; TEMP 97.1
[2021-09-08] MEDS ORDERED: ONDANSETRON 4 MG/2 ML VIAL IVP STA (21:15)
--- NOTE | 2021-09-08 22:14 | ED ---
Nausea/Vomiting/Diarrhea HPI - General Chief complaint: Nausea/Vomiting/Diarrhea Stated complaint: Nausea Time Seen by Provider: 09/08/21 21:13 Source: patient Mode of arrival: wheelchair Limitations: no limitations - History of Present Illness Initial comments: Patient is a 75 y/o male presenting with CC of nausea and vomiting. PMH of heart failure, diabetes, hypertension. Patient states that ever since his hip surgery in July he "feels sick when he looks at food". He has been eating about 50% less than his usual according to his . He had 2 episodes of vomiting today after eating, and one episode yesterday. His last bowel movement was this morning and he described it as "hard nicholas". He states "I thought someone put me on a medicine so I don't get constipated, but I cant remember". He denies any abdominal pain. He is able to tolerate fluids. Denies fever, chills, diarrhea, dysuria, urgency, frequency, hematuria, hematochezia, he matemesis, chest pain, shortness of breath, hemoptysis, palpitations, flank pain. - Related Data Home Medications Medication Instructions Recorded Confirmed metFORMIN HCL [Glucophage] 1,000 mg PO BID 07/16/21 08/04/21 Amiodarone [Cordarone] See Taper PO DIRECTED 08/04/21 08/04/21 Furosemide [Lasix] See Taper PO DAILY 08/04/21 08/04/21 Sennosides-Docusate Sodium 2 tab PO HS PRN 08/04/21 08/04/21 [Senokot-S] Previous Rx's Medication Instructions Recorded Aspirin 81 mg PO DAILY #30 chewable 02/06/18 Acetaminophen Tab [Tylenol] 650 mg PO Q6HR PRN tab 08/02/21 Apixaban [Eliquis] 5 mg PO BID #60 tab 08/02/21 Atorvastatin [Lipitor] 40 mg PO DAILY #30 tab 08/02/21 Metoprolol Tartrate [Lopressor] 12.5 mg PO BID #60 tab 08/02/21 Pantoprazole [Protonix] 40 mg PO AC-BRKFST #30 tab 08/02/21 Potassium Chloride 40 meq PO DAILY #240 ml 08/02/21 lisinopriL [Zestril] 5 mg PO DAILY@1200 #30 tab 08/07/21 Ondansetron Odt [Zofran Odt] 4 mg PO Q12HR PRN #20 tab 09/08/21 Metoclopramide [Reglan] 10 mg PO ACHS #20 tab 09/09/21 Allergies Allergy/AdvReac Type Severity Reaction Status Date / Time No Known Allergies Allergy Verified 09/08/21 20:35 Review of Systems ROS Statement: Those systems with pertinent positive or pertinent negative responses have been documented in the HPI. ROS Other: All systems not noted in ROS Statement are negative. Past Medical History Past Medical History: Coronary Artery Disease (CAD), Diabetes Mellitus, Hyperlipidemia, Hypertension, Myocardial Infarction ([place]) Additional Past Medical History / Comment(s): Pt recently admitted to [facility] on 07/16/21 with NSTEMI, new cardiomyopathy, acute systolic chf, 1st degree heart block/paroxysmal 2 degree and 3rd degree heart block, hypotension. Pt had cardiac cath/DELVIS/ CABG 3 vessel with aortic valve replacement. Last Myocardial Infarction Date:: 07/16/21 History of Any Multi-Drug Resistant Organisms: None Reported Past Surgical History: Cardiac Valve Replacement, Heart Catheterization With Stent, Hernia Repair Additional Past Surgical History / Comment(s): Right knee surgery CUT OUT CARTILAGE, hernia repair Past Anesthesia/Blood Transfusion Reactions: No Reported Reaction Past Psychological History: No Psychological Hx Reported Smoking Status: Never smoker Past Alcohol Use History: None Reported Past Drug Use History: None Reported - Past Family History Father Additional Family Medical History / Comment(s): AT AGE 84-CANCER OF LARNYX (SMOKER), CARDIAC PROBLEMS Mother Family Medical History: Diabetes Mellitus Additional Family Medical History / Comment(s): AT AGE 83- HAD A PITUITARY TUMOR REMOVED HAD SON CRISIS Sister(s) Family Medical History: Coronary Artery Disease (CAD) Additional Family Medical History / Comment(s): had CABG in her 70s General Exam Limitations: no limitations General appearance: alert, in no apparent distress Head exam: Present: atraumatic, normocephalic, normal inspection Eye exam: Present: normal appearance, PERRL, EOMI. Absent: scleral icterus, conjunctival injection, periorbital swelling ENT exam: Present: normal exam, mucous membranes moist Neck exam: Present: normal inspection Respiratory exam: Present: normal lung sounds bilaterally. Absent: respiratory distress, wheezes, rales, rhonchi, stridor Cardiovascular Exam: Present: regular rate, normal rhythm, normal heart sounds. Absent: systolic murmur, diastolic murmur, rubs, gallop, clicks GI/Abdominal exam: Present: soft, normal bowel sounds. Absent: distended, tenderness, guarding, rebound, rigid Back exam: Absent: CVA tenderness (R), CVA tenderness (L) Neurological exam: Present: alert, oriented X3, CN II-XII intact Psychiatric exam: Present: normal affect, normal mood Skin exam: Present: warm, dry, intact, normal color. Absent: rash Course Vital Signs 09/08/21 20:31 Temperature 97.1 F L Pulse Rate 79 Respiratory 16 Rate Blood Pressure 104/68 O2 Sat by Pulse 94 L Oximetry Medical Decision Making - Medical Decision Making Patient is 75-year-old male presenting with nausea. he had 2 episodes of emesis today and one yesterday, all of which were food particles and none contained blood. He denies abdominal pain, fever, chills, chest pain, shortness of breath. Laboratory studies were unremarkable. Troponin was negative. EKG showed no acute changes. Abdominal x-ray was unremarkable. UA was unremarkable. Patient was given 4 mg of IV Zofran and responded well. Sent him home with prescription for Zofran 4 mg every 12 hours as needed and Reglan 10 mg take 30 minutes before meals. Symptoms may be related to gastroparesis due to history of diabetes. Educated patient on parameters for return. Follow-up with PCP in one to 2 days. Return to ER with worsening symptoms or new onset alarming symptoms, including but not limited to chest pain, shortness of breath, fever, chills, diarrhea, vomiting, blood in stool or emesis. Answered all questions. Patient conveyed verbal understanding and agreed to the plan. My attending was Dr. Champagne. - Lab Data Result diagrams: 09/08/21 22:04 09/08/21 22:04 Lab Results 09/08/21 09/08/21 09/08/21 Range/Units 22:04 22:04 22:40 WBC 6.8 (3.8-10.6) k/uL RBC 4.32 (4.30-5.90) m/uL Hgb 13.6 D (13.0-17.5) gm/dL Hct 41.0 (39.0-53.0) % MCV 95.0 D (80.0-100.0) fL MCH 31.5 (25.0-35.0) pg MCHC 33.2 (31.0-37.0) g/dL RDW 15.7 H (11.5-15.5) % Plt Count 204 (150-450) k/uL MPV 8.2 Neutrophils % 55 % Lymphocytes % 29 % Monocytes % 8 % Eosinophils % 4 % Basophils % 1 % Neutrophils # 3.7 (1.3-7.7) k/uL Lymphocytes # 2.0 (1.0-4.8) k/uL Monocytes # 0.6 (0-1.0) k/uL Eosinophils # 0.3 (0-0.7) k/uL Basophils # 0.1 (0-0.2) k/uL Sodium 135 L (137-145) mmol/L Potassium 4.5 (3.5-5.1) mmol/L Chloride 97 L (98-107) mmol/L Carbon Dioxide 21 L (22-30) mmol/L Anion Gap 17 mmol/L BUN 29 H (9-20) mg/dL Creatinine 1.36 H (0.66-1.25) mg/dL Est GFR (CKD-EPI)AfAm 58 (>60 ml/min/1.73 sqM) Est GFR (CKD-EPI)NonAf 50 (>60 ml/min/1.73 sqM) Glucose 134 H (74-99) mg/dL Calcium 9.6 (8.4-10.2) mg/dL Total Bilirubin 0.8 (0.2-1.3) mg/dL AST 17 (17-59) U/L ALT 16 (4-49) U/L Alkaline Phosphatase 78 (38-126) U/L Troponin I (0.000-0.034) ng/mL Total Protein 7.8 (6.3-8.2) g/dL Albumin 4.4 (3.5-5.0) g/dL Amylase 91 (30-110) U/L Lipase 201 (23-300) U/L Urine Color Yellow Urine Appearance Clear (Clear) Urine pH 5.0 (5.0-8.0) Ur Specific [place] 1.011 (1.001-1.035) Urine Protein Negative (Negative) Urine Glucose (UA) Negative (Negative) Urine Ketones Negative (Negative) Urine Blood Negative (Negative) Urine Nitrite Negative (Negative) Urine Bilirubin Negative (Negative) Urine Urobilinogen <2.0 (<2.0) mg/dL Ur Leukocyte Esterase Negative (Negative) 09/09/21 Range/Units 00:29 WBC (3.8-10.6) k/uL RBC (4.30-5.90) m/uL Hgb (13.0-17.5) gm/dL Hct (39.0-53.0) % MCV (80.0-100.0) fL MCH (25.0-35.0) pg MCHC (31.0-37.0) g/dL RDW (11.5-15.5) % Plt Count (150-450) k/uL MPV Neutrophils % % Lymphocytes % % Monocytes % % Eosinophils % % Basophils % % Neutrophils # (1.3-7.7) k/uL Lymphocytes # (1.0-4.8) k/uL Monocytes # (0-1.0) k/uL Eosinophils # (0-0.7) k/uL Basophils # (0-0.2) k/uL Sodium (137-145) mmol/L Potassium (3.5-5.1) mmol/L Chloride (98-107) mmol/L Carbon Dioxide (22-30) mmol/L Anion Gap mmol/L BUN (9-20) mg/dL Creatinine (0.66-1.25) mg/dL Est GFR (CKD-EPI)AfAm (>60 ml/min/1.73 sqM) Est GFR (CKD-EPI)NonAf (>60 ml/min/1.73 sqM) Glucose (74-99) mg/dL Calcium (8.4-10.2) mg/dL Total Bilirubin (0.2-1.3) mg/dL AST (17-59) U/L ALT (4-49) U/L Alkaline Phosphatase (38-126) U/L Troponin I 0.029 (0.000-0.034) ng/mL Total Protein (6.3-8.2) g/dL Albumin (3.5-5.0) g/dL Amylase (30-110) U/L Lipase (23-300) U/L Urine Color Urine Appearance (Clear) Urine pH (5.0-8.0) Ur Specific [place] (1.001-1.035) Urine Protein (Negative) Urine Glucose (UA) (Negative) Urine Ketones (Negative) Urine Blood (Negative) Urine Nitrite (Negative) Urine Bilirubin (Negative) Urine Urobilinogen (<2.0) mg/dL Ur Leukocyte Esterase (Negative) When compared to previous EKG there are: no significant change Interpretation: no acute changes - Radiology Data Radiology results: report reviewed No acute abdominal process Disposition Clinical Impression: Nausea & vomiting Disposition: HOME SELF-CARE Condition: Good Instructions (If sedation given, give patient instructions): Acute Nausea and Vomiting (ED) Additional Instructions: Follow-up with primary care provider in one to 2 days. Take medication as p rescribed. Report back to ER with worsening symptoms or new onset alarming symptoms such as blood in vomit or stool, abdominal pain, fever, chills, chest pain, shortness of breath. Prescriptions: Metoclopramide [Reglan] 10 mg PO ACHS #20 tab Ondansetron Odt [Zofran Odt] 4 mg PO Q12HR PRN #20 tab PRN Reason: Nausea Is patient prescribed a controlled substance at d/c from ED?: No Referrals: [facility],Clinic [Primary Care Provider] - 1-2 days Time of Disposition: 23:30
[2021-09-08 22:23] LABS: Basophils # (A) 0.1 k/uL (0-0.2); Basophils % (A) 1 %; Eosinophils # (A) 0.3 k/uL (0-0.7); Eosinophils % (A) 4 %; Lymphocytes % (A) 29 %; MCH 31.5 pg (25.0-35.0); MCHC 33.2 g/dL (31.0-37.0); Mean Platelet Volume 8.2; Monocytes # (A) 0.6 k/uL (0-1.0); Monocytes % (A) 8 %; Neutrophils # (A) 3.7 k/uL (1.3-7.7); Neutrophils % (A) 55 %; Platelet Count 204 k/uL (150-450); RBC 4.32 m/uL (4.30-5.90); RDW 15.7 % (11.5-15.5); WBC 6.8 k/uL (3.8-10.6)
[2021-09-08 22:32] LABS: Albumin 4.4 g/dL (3.5-5.0); Calcium 9.6 mg/dL (8.4-10.2); Potassium 4.5 mmol/L (3.5-5.1); Total Bilirubin 0.8 mg/dL (0.2-1.3); Total Protein 7.8 g/dL (6.3-8.2)
[2021-09-08 22:48] LABS: HGB 13.6 gm/dL (13.0-17.5)
[2021-09-08 22:53] LABS: Appearance,Urine Clear (Clear); Bilirubin,Urine Negative (Negative); Blood,Urine Negative (Negative); Color,Urine Yellow; Glucose,Urine (UA) Negative (Negative); Ketones,Urine Negative (Negative); Leukocyte Esterase,Urine Negative (Negative); Nitrite,Urine Negative (Negative); Protein,Urine Negative (Negative); Specific Gravity,Urine 1.011 (1.001-1.035); Urobilinogen,Urine <2.0 mg/dL (<2.0)
--- NOTE | 2021-09-08 22:57 | XR ---
EXAMINATION TYPE: XR abdomen acute w cxr DATE OF EXAM: 09/08/2021 COMPARISON: Chest x-ray 08/07/2021 HISTORY: Nausea and vomiting TECHNIQUE: 4 views FINDINGS: There is blunting left costophrenic angle. There is some mild infiltrate left lung base. Th ere are sternal wires. There is no gross heart failure. Right lung is clear. There is no sign of intestinal obstruction or pneumoperitoneum. Fecal pattern is normal. There is no evidence of a mass. There are no pathologic calcifications over the kidneys. IMPRESSION: There is left pleural effusion and left lower lobe infiltrate increased compared to old e xam. Nonacute abdomen. No heart failure seen.
== END 2021-09-09 01:31 | disposition home or self-care (01) ==
LOC: EC 20:18
DX: R11.2 Nausea with vomiting, unspecified (principal); E11.9 Type 2 diabetes mellitus without complications; I10 Essential (primary) hypertension; I25.2 Old myocardial infarction
CPT/HCPCS: 36415; 93005; 80053; 82150; 83690; 84484; 85025; 81003; 74022; 99284; 96374; J2405

== ENCOUNTER 2022-01-18 15:56 | Emergency (ER) | payer OTHER ==
--- NOTE | 2022-01-18 18:18 | ED ---
General Adult HPI - General Chief complaint: Extremity Problem,Nontraumatic Stated complaint: Post-Op Leg/groin Pain and swelling Time Seen by Provider: 01/18/22 18:04 Source: patient, RN notes reviewed, old records reviewed Mode of arrival: wheelchair Limitations: no limitations - History of Present Illness Initial comments: 76-year-old male presents for evaluation of pain and swelling in the left leg. Patient had open-heart surgery in July. He developed a area of soft tissue swelling just distal to the knee at the vein harvesting site. He states has been present since the time of his surgery. It has not been warm or erythematous and has just been swollen since that time. Over the past 24-48 hours developed some warmth and superficial erythema. And then he states that he had developed some groin pain. There is been no discharge. Patient has had subjective fever and chills. No dyspnea or chest pain. He is on anticoagulation. - Related Data Home Medications Medication Instructions Recorded Confirmed metFORMIN HCL [Glucophage] 1,000 mg PO BID 07/16/21 08/04/21 Amiodarone [Cordarone] See Taper PO DIRECTED 08/04/21 08/04/21 Furosemide [Lasix] See Taper PO DAILY 08/04/21 08/04/21 Sennosides-Docusate Sodium 2 tab PO HS PRN 08/04/21 08/04/21 [Senokot-S] Previous Rx's Medication Instructions Recorded Aspirin 81 mg PO DAILY #30 chewable 02/06/18 Acetaminophen Tab [Tylenol] 650 mg PO Q6HR PRN tab 08/02/21 Apixaban [Eliquis] 5 mg PO BID #60 tab 08/02/21 Atorvastatin [Lipitor] 40 mg PO DAILY #30 tab 08/02/21 Metoprolol Tartrate [Lopressor] 12.5 mg PO BID #60 tab 08/02/21 Pantoprazole [Protonix] 40 mg PO AC-BRKFST #30 tab 08/02/21 Potassium Chloride 40 meq PO DAILY #240 ml 08/02/21 lisinopriL [Zestril] 5 mg PO DAILY@1200 #30 tab 08/07/21 Ondansetron Odt [Zofran Odt] 4 mg PO Q12HR PRN #20 tab 09/08/21 Metoclopramide [Reglan] 10 mg PO ACHS #20 tab 09/09/21 Cephalexin [Keflex] 500 mg PO QID 10 Days #40 cap 01/18/22 Sulfamethox-Tmp 800-160Mg [Bactrim 1 tab PO Q12HR #28 tab 01/18/22 DS 800-160 mg] Allergies Allergy/AdvReac Type Severity Reaction Status Date / Time No Known Allergies Allergy Verified 01/18/22 16:36 Review of Systems ROS Statement: Those systems with pertinent positive or pertinent negative responses have been documented in the HPI. ROS Other: All systems not noted in ROS Statement are negative. Past Medical History Past Medical History: Coronary Artery Disease (CAD), Diabetes Mellitus, Hyperlipidemia, Hypertension, Myocardial Infarction ([place]) Additional Past Medical History / Comment(s): Pt recently admitted to [facility] on 07/16/21 with NSTEMI, new cardiomyopathy, acute systolic chf, 1st degree heart block/paroxysmal 2 degree and 3rd degree heart block, hypotension. Pt had cardiac cath/DELVIS/ CABG 3 vessel with aortic valve replacement. Last Myocardial Infarction Date:: 07/16/21 History of Any Multi-Drug Resistant Organisms: None Reported Past Surgical History: Cardiac Valve Replacement, Heart Catheterization With Stent, Hernia Repair Additional Past Surgical History / Comment(s): Right knee surgery CUT OUT CARTILAGE, hernia repair Past Anesthesia/Blood Transfusion Reactions: No Reported Reaction Past Psychological History: No Psychological Hx Reported Smoking Status: Never smoker Past Alcohol Use History: None Reported Past Drug Use History: None Reported - Past Family History Father Additional Family Medical History / Comment(s): AT AGE 84-CANCER OF LARNYX (SMOKER), CARDIAC PROBLEMS Mother Family Medical History: Diabetes Mellitus Additional Family Medical History / Comment(s): AT AGE 83- HAD A PITUITARY TUMOR REMOVED HAD SON CRISIS Sister(s) Family Medical History: Coronary Artery Disease (CAD) Additional Family Medical History / Comment(s): had CABG in her 70s General Exam Limitations: no limitations General appearance: alert, in no apparent distress Head exam: Present: atraumatic, normocephalic Eye exam: Present: normal appearance, PERRL ENT exam: Present: normal exam Neck exam: Present: normal inspection Respiratory exam: Present: normal lung sounds bilaterally. Absent: respiratory distress, wheezes Cardiovascular Exam: Present: regular rate, normal rhythm GI/Abdominal exam: Present: soft. Absent: distended, tenderness Extremities exam: Present: normal capillary refill (Distal pulses are intact.), other (Area of swelling medial aspect just distal to the knee on the left. This is warm and erythematous but non-indurated or fluctuant. Nonpulsatile.). Absent: pedal edema, calf tenderness Neurological exam: Present: alert, oriented X3, CN II-XII intact. Absent: motor sensory deficit Psychiatric exam: Present: normal affect, normal mood Skin exam: Present: warm, dry, intact. Absent: cyanosis, diaphoretic Course Vital Signs 01/18/22 16:33 Temperature 100 F H Pulse Rate 99 Respiratory 16 Rate Blood Pressure 114/72 O2 Sat by Pulse 96 Oximetry Medical Decision Making - Medical Decision Making 76-year-old male with pain and swelling in the left leg. There was concern for DVT, DVT study was negative. There was some lymphadenopathy in the groin. There is an area of swelling and erythema to the medial aspect just distal to the knee. Patient states this has been present for months. Ultrasound showing cystic structure. There may be a superficial infection noted and the patient is started on antibiotics given the lymphadenopathy in the groin. He is given strict return parameters. I will not drain this at this time because the structure has been present for many months and is at the site of previous vein extraction. Patient should follow closely with his primary care physician or return as needed. Disposition Clinical Impression: Cellulitis, Lymphadenopathy Disposition: HOME SELF-CARE Condition: Fair Instructions (If sedation given, give patient instructions): Cellulitis (ED), Lymphadenopathy (ED) Prescriptions: Sulfamethox-Tmp 800-160Mg [Bactrim DS 800-160 mg] 1 tab PO Q12HR #28 tab Cephalexin [Keflex] 500 mg PO QID 10 Days #40 cap Is patient prescribed a controlled substance at d/c from ED?: No Referrals: [facility],Clinic [Primary Care Provider] - 1-2 days Time of Disposition: 20:38
[2022-01-18] MEDS ORDERED: ACETAMINOPHEN TAB 500 MG TAB PO STA (19:19)
--- NOTE | 2022-01-18 20:27 | US ---
EXAMINATION TYPE: US venous doppler duplex LE LT DATE OF EXAM: 01/18/2022 7:57 PM COMPARISON: NONE CLINICAL HISTORY: swelling. CABG 07/30. Left saphenous vein harvest. Redness, edema left leg SIDE PERFORMED: left TECHNIQUE: The lower extremity deep venous system is examined utilizing real time linear array sonog judy with graded compression, doppler sonography and color-flow sonography. VESSELS IMAGED: Common Femoral Vein Deep Femoral Vein Greater Saphenous Vein * Femoral Vein Popliteal Vein Small Saphenous Vein * Proximal Calf Veins (* superficial vessels) Left Leg: no evidence of DVT as visualized. Note is made of technical limitations, patient unable to tolerate compressions due to pain. rouleaux flow noted. Multiple lymph nodes left groin Grayscale, c olor doppler, spectral doppler imaging performed of the deep veins of the lower extremities. There i s normal flow, compressibility, vascular waveforms. IMPRESSION: 1. No evidence of DVT in the left lower extremity. Note is made of an difficult exam which limited t he evaluation. 2. Streaky subcutaneous edema
--- NOTE | 2022-01-18 20:28 | US ---
EXAMINATION TYPE: US extremity nonvasc mass LT DATE OF EXAM: 01/18/2022 COMPARISON: NONE CLINICAL HISTORY: Soft tissue mass distal to the right knee medial. Palpable area inferior to left kn ee, medial lower leg scanned within area of concern, left medial lower leg just inferior to knee, anechoic avascular area noted = 5.5 x 2.2 x 4.4cm IMPRESSION: Findings most compatible with cyst. This could be related to popliteal fossa cyst. This can be furthe r evaluated with MRI of the leg if clinically warranted.
[2022-01-18] MEDS ORDERED: SULFAMETHOX-TMP 800-160MG 1 EACH TAB PO STA (20:33)
[2022-01-18] MEDS ORDERED: CEPHALEXIN 500 MG CAP PO STA (20:33)
[2022-01-18 21:52] VITALS: BP 107/68; PULSE 86; RESP 18; TEMP 99.1
== END 2022-01-18 21:54 | disposition home or self-care (01) ==
LOC: EC 15:56
DX: L03.90 Cellulitis, unspecified (principal); R59.1 Generalized enlarged lymph nodes; I10 Essential (primary) hypertension; E78.5 Hyperlipidemia, unspecified; I25.2 Old myocardial infarction
CPT/HCPCS: 99283

== ENCOUNTER 2022-01-20 16:59 | Inpatient (IN) | payer OTHER, MEDICARE ==
[2022-01-20] MEDS ORDERED: CLINDAMYCIN 900 MG in DEXTROSE 5% IN WATER 50 ML IVPB STA ×2 (19:27)
[2022-01-20] MEDS ORDERED: SODIUM CHLORIDE 0.9% 1,000 ML IV ONE (19:27)
--- NOTE | 2022-01-20 20:13 | ED ---
Skin/Abscess/FB HPI - General Chief complaint: Skin/Abscess/Foreign Body Stated complaint: Sore on knee,pain Time Seen by Provider: 01/20/22 19:05 Source: patient Mode of arrival: ambulatory Limitations: no limitations - History of Present Illness Initial comments: This is a pleasant 76-year-old male with history of coronary artery disease, di abetes mellitus, hyperlipidemia, hypertension, previous myocardial infarction. Patient presents to the emergency department today complaining of worsening erythema to the medial aspect of his left knee. Patient states he was seen here 2 days ago and he was started on Bactrim DS and cephalexin. Patient states at that time he had inguinal adenopathy as well. He states the lymph nodes seem to be improved. Patient denying any fever. Denies any nausea or vomiting. No other skin manifestations or lesions. Patient denying any injury. No distal symptomology. No headache, no fever or chills, no changes in vision or hearing, no sore throat or difficulty with speech, no neck pain, no chest pain or shortness of breath, no abdominal pain, no nausea or vomiting, no changes in urination or bowel movements, no numbness or tingling, PATIENT complaining of mild pain to the medial aspect of left knee overlying the erythematous area., no skin rashes or lesions. - Related Data Home Medications Medication Instructions Recorded Confirmed metFORMIN HCL [Glucophage] 1,000 mg PO BID 07/16/21 08/04/21 Amiodarone [Cordarone] See Taper PO DIRECTED 08/04/21 08/04/21 Furosemide [Lasix] See Taper PO DAILY 08/04/21 08/04/21 Sennosides-Docusate Sodium 2 tab PO HS PRN 08/04/21 08/04/21 [Senokot-S] Previous Rx's Medication Instructions Recorded Aspirin 81 mg PO DAILY #30 chewable 02/06/18 Acetaminophen Tab [Tylenol] 650 mg PO Q6HR PRN tab 08/02/21 Apixaban [Eliquis] 5 mg PO BID #60 tab 08/02/21 Atorvastatin [Lipitor] 40 mg PO DAILY #30 tab 08/02/21 Metoprolol Tartrate [Lopressor] 12.5 mg PO BID #60 tab 08/02/21 Pantoprazole [Protonix] 40 mg PO AC-BRKFST #30 tab 08/02/21 Potassium Chloride 40 meq PO DAILY #240 ml 08/02/21 lisinopriL [Zestril] 5 mg PO DAILY@1200 #30 tab 08/07/21 Ondansetron Odt [Zofran Odt] 4 mg PO Q12HR PRN #20 tab 09/08/21 Metoclopramide [Reglan] 10 mg PO ACHS #20 tab 09/09/21 Cephalexin [Keflex] 500 mg PO QID 10 Days #40 cap 01/18/22 Sulfamethox-Tmp 800-160Mg [Bactrim 1 tab PO Q12HR #28 tab 01/18/22 DS 800-160 mg] Allergies Allergy/AdvReac Type Severity Reaction Status Date / Time No Known Allergies Allergy Verified 01/20/22 17:06 Review of Systems ROS Statement: Those systems with pertinent positive or pertinent negative responses have been documented in the HPI. ROS Other: All systems not noted in ROS Statement are negative. Past Medical History Past Medical History: Coronary Artery Disease (CAD), Diabetes Mellitus, Hyperlipidemia, Hypertension, Myocardial Infarction (PR) Additional Past Medical History / Comment(s): Pt recently admitted to [facility] on 07/16/21 with NSTEMI, new cardiomyopathy, acute systolic chf, 1st degree heart block/paroxysmal 2 degree and 3rd degree heart block, hypotension. Pt had cardiac cath/DELVIS/ CABG 3 vessel with aortic valve replacement. Last Myocardial Infarction Date:: 07/16/21 History of Any Multi-Drug Resistant Organisms: None Reported Past Surgical History: Cardiac Valve Replacement, Heart Catheterization With Stent, Hernia Repair Additional Past Surgical History / Comment(s): Right knee surgery CUT OUT CARTILAGE, hernia repair Past Anesthesia/Blood Transfusion Reactions: No Reported Reaction Past Psychological History: No Psychological Hx Reported Smoking Status: Never smoker Past Alcohol Use History: None Reported Past Drug Use History: None Reported - Past Family History Father Additional Family Medical History / Comment(s): AT AGE 84-CANCER OF LARNYX (SMOKER), CARDIAC PROBLEMS Mother Family Medical History: Diabetes Mellitus Additional Family Medical History / Comment(s): AT AGE 83- HAD A PITUITARY TUMOR REMOVED HAD SON CRISIS Sister(s) Family Medical History: Coronary Artery Disease (CAD) Additional Family Medical History / Comment(s): had CABG in her 70s General Exam - General Exam Comments Initial Comments: Signs reviewed, patient does not appear to be ill or toxic. Limitations: no limitations General appearance: alert, in no apparent distress Head exam: Present: atraumatic, normocephalic, normal inspection Eye exam: Present: normal appearance, PERRL, EOMI. Absent: scleral icterus, conjunctival injection, periorbital swelling ENT exam: Present: normal exam, mucous membranes moist Neck exam: Present: normal inspection, full ROM. Absent: tenderness, meningismus, lymphadenopathy Respiratory exam: Present: normal lung sounds bilaterally. Absent: respiratory distress, wheezes, rales, rhonchi, stridor Cardiovascular Exam: Present: regular rate, normal rhythm, normal heart sounds. Absent: systolic murmur, diastolic murmur, rubs, gallop, clicks GI/Abdominal exam: Present: soft, normal bowel sounds. Absent: distended, tenderness, guarding, rebound, rigid Extremities exam: Present: full ROM (Patient has full range of motion with regards to the knee. Full flexion and extension are noted.), tenderness (Minimal tenderness over the erythematous area to the medial/inferior aspect of the left knee. Negative Homans sign), normal capillary refill, other (No l ymphangitis, no inguinal adenopathy, no break in skin integrity.). Absent: normal inspection, pedal edema, joint swelling, calf tenderness Back exam: Present: normal inspection Neurological exam: Present: alert, oriented X3, CN II-XII intact Psychiatric exam: Present: normal affect, normal mood Skin exam: Present: warm, dry, intact, normal color. Absent: rash Course Vital Signs 01/20/22 17:04 Temperature 98.2 F Pulse Rate 82 Respiratory 20 Rate Blood Pressure 113/76 O2 Sat by Pulse 96 Oximetry - Reevaluation(s) Reevaluation #1: 01/20/22 21:17 Medical record is reviewed Symptoms are improved here in the emergency department Patient is informed of results and questions answered Patient in no distress - Consultations Consultation #1: Case discussed in detail with the hospitalist physician. The physician group, Dr. Martins Procedures - Procedures Initial comment: Bedside ultrasound performed by me does reveal some evidence of fluid collection with in this suspicious area to the medial/inferior aspect of the left knee Medical Decision Making - Medical Decision Making Appears to have cellulitis to the medial/. Aspect left knee. Patient does have previous scarring from vein harvesting for cardiac bypass. This is in the area of the patient's symptomology. Apparently the patient has had problems with this before. There is a slight fluid collection noted on bedside ultrasound. Patient had a venous Doppler done yesterday which did show some subcutaneous edema. No DVT. There is an erythematous area which is approximately 15 cm in diameter. Patient will be admitted for outpatient treatment failure regarding cellulitis and abscess to left lower extremity. Case discussed in detail with the hospitalist physician. The case was discussed in detail with ED attending physician. Presentation, findings, treatment plan discussed in detail. Decorator Hand Dr. Hopper - Lab Data Result diagrams: 01/20/22 19:58 01/20/22 19:58 Lab Results 01/20/22 01/20/22 01/20/22 Range/Units 19:58 19:58 20:11 WBC 9.9 (3.8-10.6) k/uL RBC 4.15 L (4.30-5.90) m/uL Hgb 13.5 (13.0-17.5) gm/dL Hct 39.5 (39.0-53.0) % MCV 95.1 (80.0-100.0) fL MCH 32.4 (25.0-35.0) pg MCHC 34.1 (31.0-37.0) g/dL RDW 13.5 (11.5-15.5) % Plt Count 183 (150-450) k/uL MPV 8.3 Neutrophils % 78 % Lymphocytes % 9 % Monocytes % 8 % Eosinophils % 2 % Basophils % 1 % Neutrophils # 7.7 (1.3-7.7) k/uL Lymphocytes # 0.9 L (1.0-4.8) k/uL Monocytes # 0.8 (0-1.0) k/uL Eosinophils # 0.2 (0-0.7) k/uL Basophils # 0.1 (0-0.2) k/uL Sodium 133 L (137-145) mmol/L Potassium 3.7 (3.5-5.1) mmol/L Chloride 89 L (98-107) mmol/L Carbon Dioxide 30 (22-30) mmol/L Anion Gap 14 mmol/L BUN 34 H (9-20) mg/dL Creatinine 1.95 H (0.66-1.25) mg/dL Est GFR (CKD-EPI)AfAm 37 (>60 ml/min/1.73 sqM) Est GFR (CKD-EPI)NonAf 32 (>60 ml/min/1.73 sqM) Glucose 161 H (74-99) mg/dL Plasma Lactic Acid Loco 2.5 H* (0.7-2.0) mmol/L Calcium 9.5 (8.4-10.2) mg/dL Total Bilirubin 1.1 (0.2-1.3) mg/dL AST 17 (17-59) U/L ALT 11 (4-49) U/L Alkaline Phosphatase 80 (38-126) U/L Total Protein 8.0 (6.3-8.2) g/dL Albumin 4.6 (3.5-5.0) g/dL Disposition Clinical Impression: Cellulitis and abscess of left leg Disposition: ADMITTED IP TO THIS HOSP Condition: Good Referrals: [facility],Clinic [Primary Care Provider] - 1-2 days Time of Disposition: 21:17
--- NOTE | 2022-01-20 20:24 | XR ---
EXAMINATION TYPE: XR tibia fibula LT DATE OF EXAM: 01/20/2022 CLINICAL HISTORY: pain TECHNIQUE: AP and lateral images of the left tibia and fibula are obtained. COMPARISON: None. FINDINGS: There is no acute fracture/dislocation evident. The joint spaces appear within normal bell its. Correlate for soft tissue cellulitis. No evidence for osteomyelitis. IMPRESSION: There is no acute fracture or dislocation seen. ICD 10 NO FRACTURE, INITIAL EVALUATION
[2022-01-20 20:47] LABS: Basophils # (A) 0.1 k/uL (0-0.2); Basophils % (A) 1 %; Eosinophils # (A) 0.2 k/uL (0-0.7); Eosinophils % (A) 2 %; HCT 39.5 % (39.0-53.0); HGB 13.5 gm/dL (13.0-17.5); Lymphocytes # (A) 0.9 k/uL (1.0-4.8); Lymphocytes % (A) 9 %; MCH 32.4 pg (25.0-35.0); MCHC 34.1 g/dL (31.0-37.0); MCV 95.1 fL (80.0-100.0); Mean Platelet Volume 8.3; Monocytes # (A) 0.8 k/uL (0-1.0); Monocytes % (A) 8 %; Neutrophils # (A) 7.7 k/uL (1.3-7.7); Neutrophils % (A) 78 %; Platelet Count 183 k/uL (150-450); RBC 4.15 m/uL (4.30-5.90); RDW 13.5 % (11.5-15.5); WBC 9.9 k/uL (3.8-10.6)
[2022-01-20 20:57] LABS: Albumin 4.6 g/dL (3.5-5.0); Calcium 9.5 mg/dL (8.4-10.2); Potassium 3.7 mmol/L (3.5-5.1); Total Bilirubin 1.1 mg/dL (0.2-1.3)
[2022-01-20] MEDS ORDERED: NALOXONE 0.4 MG/ML 1 ML VIAL IV PRN (21:21)
[2022-01-20] MEDS ORDERED: ACETAMINOPHEN TAB 325 MG TAB PO PRN (21:21)
[2022-01-20] MEDS ORDERED: MORPHINE SULFATE 4 MG/ML SYRINGE IV PRN (21:21)
[2022-01-20] MEDS ORDERED: METOPROLOL TARTRATE 5 MG/5 ML VIAL IVP PRN (21:27)
--- NOTE | 2022-01-20 22:03 | CT ---
EXAMINATION TYPE: CT lower extremity LT wo con DATE OF EXAM: 01/20/2022 COMPARISON: None HISTORY: Infectious process, LT lower knee/leg. Recent cardiac cath/DELVIS/CABG 3 vessel w/aortic valve replacement. CT DLP: 187.4 mGycm Automated exposure control for dose reduction was used. Unenhanced CT of the left lower extremity was performed from above the knee through the mid tibia and fibula. Bone and soft tissue window settings are submitted in the coronal axial and sagittal planes. FINDINGS: At the level of the medial knee there is a fluid collection noted within the subcutaneous tissues tiffany suring 7.9 cm craniocaudal dimension 4.3 cm AP dimension by 2.9 cm transverse dimension. There are ad jacent clips noted in this could reflect hematoma however infected collection is not excluded. There is stranding within the adjacent subcutaneous tissues. No additional collections are seen within the subcutaneous tissues. There is evidence of a Carranza's cy st measuring 4.4 cm in craniocaudal dimension. There is evidence of osteoarthritis with moderate narr owing of the medial tibiofemoral joint space and patellofemoral joint space. No bony destructive proc ess seen. Vascular calcifications identified. Osseous structures are intact without evidence of fract ure or osseous lesion. IMPRESSION: 1. Fluid collection at the level of the medial knee within the subcutaneous tissues with dimensions g iven above. Adjacent clips are noted. While this could reflect hematoma infected collection is not ex cluded. Correlate clinically.
[2022-01-21] MEDS: SODIUM CHLORIDE 0.9% 1,000 ML IV SCH ×2 (01:09→12:15)
[2022-01-21] MEDS: PANTOPRAZOLE 40 MG/10 ML VIAL IVP SCH ×2 (01:18→07:48)
[2022-01-21] MEDS ORDERED: CLINDAMYCIN 600 MG in DEXTROSE 5% IN WATER 50 ML IVPB SCH ×2 (02:00)
[2022-01-21] MEDS ORDERED: SODIUM CHLORIDE 0.9% 1,000 ML IV ONE ×2 (03:30→06:04)
--- NOTE | 2022-01-21 03:39 | P.HPIM ---
History of Present Illness H&P Date: 01/20/22 The patient is a 76-year-old male with a PMH of coronary artery disease status post CABG in 07/2021 with saphenous vein grafting, A. fib on Eliquis, type II DM, CHF, hypertension, who presents to the emergency room with complaints of left leg pain and redness. The patient reports that he has had persistent issues with the left vein grafting site on the medial aspect of the left knee. He reports having seen multiple providers including an infectious disease doctor and having completed multiple courses of antibiotics. Reports however that over the past 1 week, his symptoms seem to have worsened. He denies fever or chills at home. Also denies experiencing chest discomfort, shortness of breath, nausea, vomiting, abdominal pain, diarrhea. Laboratory evaluation in the emergency room was remarkable for lactic acid 2.5, BUN 34, creatinine 1.95, glucose 161. Review of systems: Pertinent positives and negatives as discussed in HPI, a complete review of systems was performed and all other systems are negative. Physical examination: General: non toxic, no distress, appears at stated age, normal weight Derm: Erythema and induration at the medial aspect of the left knee with possible underlying collection Head: atraumatic, normocephalic, symmetric Eyes: EOMI, no lid lag, anicteric sclera, pupils equal round reactive to light ENT: Nose and ears atraumatic Neck: No cervical lymphadenopathy, trachea midline, supple Mouth: no lip lesion, mucus membranes moist Cardiovascular: S1S2 reg, no murmur, positive dorsalis pedis pulse bilateral, no edema Lungs: CTA bilateral, no rhonchi, no rales, no accessory muscle use Abdominal: soft, nontender to palpation, no guarding Ext: muscle strength 5 out of 5 in all 4 extremities grossly, no gross muscle atrophy, no contractures, Neuro: CN II-XI grossly intact, no gross focal neuro deficits Psych: Alert, oriented, appropriate affect Assessment/plan Left lower extremity cellulitis with suspected underlying abscess -Vascular surgery and infectious disease consulted -Continue with IV antibiotics: Clindamycin -IV fluids -Involved the area marked to track progress Lactic acidosis -IV fluids -Monitor for resolution CHAPARRO on chronic kidney disease -IV fluids Chronic conditions: A. fib, type II DM, CHF, hypothyroidism, CAD -Continue with home meds -Holding home Lasix dose at this time -Insulin sliding scale and blood glucose monitoring DVT prophylaxis -Eliquis The patient is admitted with an anticipated greater than 2 midnight stay for evaluation of LLE cellulitis CODE STATUS: Full Code Discussed with: Patient Anticipated discharge date: 2-[address]: Home Past Medical History Past Medical History: Coronary Artery Disease (CAD), Diabetes Mellitus, Hyperlipidemia, Hypertension, Myocardial Infarction (PR) Additional Past Medical History / Comment(s): Pt recently admitted to [facility] on 07/16/21 with NSTEMI, new cardiomyopathy, acute systolic chf, 1st degree heart block/paroxysmal 2 degree and 3rd degree heart block, hypotension. Pt had cardiac cath/DELVIS/ CABG 3 vessel with aortic valve replacement. Last Myocardial Infarction Date:: 07/16/21 History of Any Multi-Drug Resistant Organisms: None Reported Past Surgical History: Cardiac Valve Replacement, Heart Catheterization With Stent, Hernia Repair Additional Past Surgical History / Comment(s): Right knee surgery CUT OUT CARTILAGE, hernia repair Past Anesthesia/Blood Transfusion Reactions: No Reported Reaction Past Psychological History: No Psychological Hx Reported Smoking Status: Never smoker Past Alcohol Use History: None Reported Past Drug Use History: None Reported - Past Family History Father Additional Family Medical History / Comment(s): AT AGE 84-CANCER OF LARNYX (SMOKER), CARDIAC PROBLEMS Mother Family Medical History: Diabetes Mellitus Additional Family Medical History / Comment(s): AT AGE 83- HAD A PITUITARY TUMOR REMOVED HAD SON CRISIS Sister(s) Family Medical History: Coronary Artery Disease (CAD) Additional Family Medical History / Comment(s): had CABG in her 70s Medications and Allergies Home Medications Medication Instructions Recorded Confirmed Type Aspirin 81 mg PO DAILY #30 chewable 02/06/18 01/20/22 Rx metFORMIN HCL [Glucophage] 1,000 mg PO BID 07/16/21 01/20/22 History Apixaban [Eliquis] 5 mg PO BID #60 tab 08/02/21 01/20/22 Rx Pantoprazole [Protonix] 40 mg PO AC-BRKFST #30 tab 08/02/21 01/20/22 Rx Furosemide [Lasix] 40 mg PO DAILY 08/04/21 01/20/22 History Ondansetron Odt [Zofran Odt] 4 mg PO Q12HR PRN #20 tab 09/08/21 01/20/22 Rx Cephalexin [Keflex] 500 mg PO QID 10 Days #40 cap 01/18/22 01/20/22 Rx Sulfamethox-Tmp 800-160Mg [Bactrim 1 tab PO Q12HR #28 tab 01/18/22 01/20/22 Rx DS 800-160 mg] Atorvastatin Calcium [Lipitor] 40 mg PO HS 01/20/22 01/20/22 History Metoprolol Tartrate [Lopressor] 12.5 mg PO BID 01/20/22 01/20/22 History Allergies Allergy/AdvReac Type Severity Reaction Status Date / Time No Known Allergies Allergy Verified 01/20/22 22:52 Physical Exam Vitals: Vital Signs Temp Pulse Resp BP Pulse Ox 01/20/22 17:04 98.2 F 82 20 113/76 96 Intake and Output 01/20/22 01/20/22 01/20/22 06:59 14:59 22:59 Other: Weight 86.183 kg Results CBC & Chem 7: 01/20/22 19:58 01/20/22 19:58 Labs: Abnormal Lab Results - Last 24 Hours (Table) 01/20/22 01/20/22 01/20/22 Range/Units 19:58 19:58 20:11 RBC 4.15 L (4.30-5.90) m/uL Lymphocytes # 0.9 L (1.0-4.8) k/uL Sodium 133 L (137-145) mmol/L Chloride 89 L (98-107) mmol/L BUN 34 H (9-20) mg/dL Creatinine 1.95 H (0.66-1.25) mg/dL Glucose 161 H (74-99) mg/dL Plasma Lactic Acid Loco 2.5 H* (0.7-2.0) mmol/L
[2022-01-21 04:09] LABS: Basophils % (A) 1 %; Eosinophils # (A) 0.2 k/uL (0-0.7); Eosinophils % (A) 2 %; HCT 33.7 % (39.0-53.0); HGB 11.4 gm/dL (13.0-17.5); Lymphocytes # (A) 0.9 k/uL (1.0-4.8); Lymphocytes % (A) 11 %; MCH 32.1 pg (25.0-35.0); MCHC 33.9 g/dL (31.0-37.0); Mean Platelet Volume 8.4; Monocytes # (A) 0.7 k/uL (0-1.0); Monocytes % (A) 9 %; Neutrophils # (A) 6.3 k/uL (1.3-7.7); Neutrophils % (A) 75 %; Platelet Count 162 k/uL (150-450); RBC 3.55 m/uL (4.30-5.90); RDW 13.2 % (11.5-15.5); WBC 8.4 k/uL (3.8-10.6)
[2022-01-21 04:19] LABS: Calcium 8.4 mg/dL (8.4-10.2); Potassium 3.2 mmol/L (3.5-5.1)
[2022-01-21] MEDS ORDERED: VANCOMYCIN IV PER PHARMACY 1 EACH MISC MISCELLANE PRN (06:03)
[2022-01-21] MEDS ORDERED: POTASSIUM CHLORIDE ER 20 MEQ TAB.ER PO STA (06:05)
[2022-01-21] MEDS ORDERED: VANCOMYCIN 1,500 MG in SODIUM CHLORIDE 0.9% 250 ML IVPB ONE (06:15)
[2022-01-21] MEDS: PIPERACILLIN-TAZOBACTAM 3.375 GM in SODIUM CHLORIDE 0.9% 100 ML IVPB SCH ×3 (06:26→21:19)
[2022-01-21] MEDS: METOPROLOL TARTRATE 12.5 MG TAB PO SCH ×2 (07:48→21:19)
[2022-01-21] MEDS: INSULIN ASPART (NovoLOG) 100 UNIT/ML VIAL SQ SCH ×4 (07:52→21:20)
[2022-01-21 07:53] LABS: Glucose,Whole Blood 138 mg/dL (70-110)
[2022-01-21 11:41] LABS: Glucose,Whole Blood 152 mg/dL (70-110)
[2022-01-21] MEDS: APIXABAN 5 MG TAB PO SCH ×2 (12:39→21:19)
[2022-01-21] MEDS: ASPIRIN 81 MG PO SCH (12:39)
[2022-01-21 16:36] LABS: Glucose,Whole Blood 185 mg/dL (70-110)
--- NOTE | 2022-01-21 18:03 | P.PN ---
Subjective Progress Note Date: 01/21/22 Principal diagnosis: Cellulitis of the left limb Showed left cellulitis on clindamycin Objective - Vital Signs Vital signs: Vital Signs Temp 98.4 F 01/21/22 14:00 Pulse 71 01/21/22 14:00 Resp 18 01/21/22 14:00 BP 110/64 01/21/22 14:00 Pulse Ox 94 L 01/21/22 14:00 FiO2 Intake & Output 01/20/22 01/21/22 01/21/22 18:59 06:59 18:59 Intake Total 1974 1080 Output Total 550 Balance 1974 530 Weight 86.183 kg 86.183 kg Intake: Intake, IV Titration 1475 Amount Clindamycin 600 mg In 50 Dextrose 5% in Water 50 ml @ 50 mls/hr IVPB Q6H [facility] Rx#:[id number] Clindamycin 900 mg In 50 Dextrose 5% in Water 50 ml @ 50 mls/hr IVPB ONCE STA Rx#:[id number] Sodium Chloride 0.9% 1, 375 000 ml @ 75 mls/hr IV . [id number] [facility] Rx#:[id number] Sodium Chloride 0.9% 1, 1000 000 ml @ 999 mls/hr IV . Q1H1M ONE Rx#:[id number] Oral 500 1080 Output: Urine 550 Other: Voiding Method Urinal # Voids 3 - Constitutional General appearance: Present: no acute distress - Respiratory Respiratory: bilateral: CTA - Cardiovascular Rhythm: regular - Gastrointestinal General gastrointestinal: Present: normal bowel sounds - Integumentary Integumentary Comment(s): Left leg with erythema and fluctuance on medial leg - Musculoskeletal Musculoskeletal: Present: strength equal bilaterally - Psychiatric Psychiatric: Present: A&O x's 3 - Labs CBC & Chem 7: 01/21/22 03:51 01/21/22 03:47 Labs: Abnormal Lab Results - Last 24 Hours (Table) 01/20/22 01/20/22 01/20/22 Range/Units 19:58 19:58 20:11 RBC 4.15 L (4.30-5.90) m/uL Hgb (13.0-17.5) gm/dL Hct (39.0-53.0) % Lymphocytes # 0.9 L (1.0-4.8) k/uL Sodium 133 L (137-145) mmol/L Potassium (3.5-5.1) mmol/L Chloride 89 L (98-107) mmol/L BUN 34 H (9-20) mg/dL Creatinine 1.95 H (0.66-1.25) mg/dL Glucose 161 H (74-99) mg/dL POC Glucose (mg/dL) (70-110) mg/dL Plasma Lactic Acid Loco 2.5 H* (0.7-2.0) mmol/L 01/20/22 01/21/22 01/21/22 Range/Units 23:36 03:47 03:51 RBC 3.55 L (4.30-5.90) m/uL Hgb 11.4 L (13.0-17.5) gm/dL Hct 33.7 L (39.0-53.0) % Lymphocytes # 0.9 L (1.0-4.8) k/uL Sodium 132 L (137-145) mmol/L Potassium 3.2 L (3.5-5.1) mmol/L Chloride 94 L (98-107) mmol/L BUN 33 H (9-20) mg/dL Creatinine 1.66 H (0.66-1.25) mg/dL Glucose 228 H (74-99) mg/dL POC Glucose (mg/dL) (70-110) mg/dL Plasma Lactic Acid Loco 2.3 H* (0.7-2.0) mmol/L 01/21/22 01/21/22 01/21/22 Range/Units 03:51 07:52 11:40 RBC (4.30-5.90) m/uL Hgb (13.0-17.5) gm/dL Hct (39.0-53.0) % Lymphocytes # (1.0-4.8) k/uL Sodium (137-145) mmol/L Potassium (3.5-5.1) mmol/L Chloride (98-107) mmol/L BUN (9-20) mg/dL Creatinine (0.66-1.25) mg/dL Glucose (74-99) mg/dL POC Glucose (mg/dL) 138 H 152 H (70-110) mg/dL Plasma Lactic Acid Loco 3.0 H* (0.7-2.0) mmol/L 01/21/22 Range/Units 16:34 RBC (4.30-5.90) m/uL Hgb (13.0-17.5) gm/dL Hct (39.0-53.0) % Lymphocytes # (1.0-4.8) k/uL Sodium (137-145) mmol/L Potassium (3.5-5.1) mmol/L Chloride (98-107) mmol/L BUN (9-20) mg/dL Creatinine (0.66-1.25) mg/dL Glucose (74-99) mg/dL POC Glucose (mg/dL) 185 H (70-110) mg/dL Plasma Lactic Acid Loco (0.7-2.0) mmol/L Microbiology - Last 24 Hours (Table) 01/20/22 19:50 Blood Culture - Final Blood Assessment and Plan (1) Cellulitis and abscess of left leg Narrative/Plan: At surgery, continue clindamycin patient states slight improvement pain control with IV morphine Current Visit: Yes Status: Acute Code(s): L03.116 - CELLULITIS OF LEFT LOWER LIMB; L02.416 - CUTANEOUS ABSCESS OF LEFT LOWER LIMB SNOMED Code(s): 130593366 (2) Congestive heart failure Narrative/Plan: Continue current patient compensated Current Visit: No Status: Acute Code(s): I50.9 - HEART FAILURE, UNSPECIFIED SNOMED Code(s): 63526038 (3) Hypoglycemia Narrative/Plan: Continue sliding-scale coverage Current Visit: No Status: Acute Code(s): E16.2 - HYPOGLYCEMIA, UNSPECIFIED SNOMED Code(s): 778068598
--- NOTE | 2022-01-21 19:07 | P.GSCN ---
History of Present Illness Consult date: 01/21/22 History of present illness: Hernandez is a 76-year-old male who has a recent history of CABG in July 2021 as well as porcine valve. He is atrial fibrillation on [place], has type 2 diabetes, CHF, hypertension. He came to the ER with left leg pain and redness. He states his at the medial knee at the site of where the vein was harvested. He believes it was an issue shortly after the procedure itself however has been continuing to grow since then and becoming uncomfortable. He has tried multiple courses of antibiotics. He says it has not significantly helped. Past Medical History Past Medical History: Coronary Artery Disease (CAD), Diabetes Mellitus, Hyperlipidemia, Hypertension, Myocardial Infarction ([place]) Additional Past Medical History / Comment(s): Pt recently admitted to [facility] on 07/16/21 with NSTEMI, new cardiomyopathy, acute systolic chf, 1st degree heart block/paroxysmal 2 degree and 3rd degree heart block, hypotension. Pt had cardiac cath/DELVIS/ CABG 3 vessel with aortic valve replacement. Last Myocardial Infarction Date:: 07/16/21 History of Any Multi-Drug Resistant Organisms: None Reported Past Surgical History: Cardiac Valve Replacement, Heart Catheterization With Stent, Hernia Repair Additional Past Surgical History / Comment(s): Right knee surgery CUT OUT CARTILAGE, hernia repair Past Anesthesia/Blood Transfusion Reactions: No Reported Reaction Date of Last Stent Placement:: 07/16/21 Past Psychological History: No Psychological Hx Reported Smoking Status: Never smoker Past Alcohol Use History: None Reported Past Drug Use History: None Reported - Past Family History Father Additional Family Medical History / Comment(s): AT AGE 84-CANCER OF LARNYX (SMOKER), CARDIAC PROBLEMS Mother Family Medical History: Diabetes Mellitus Additional Family Medical History / Comment(s): AT AGE 83- HAD A PITUITARY TUMOR REMOVED HAD SON CRISIS Sister(s) Family Medical History: Coronary Artery Disease (CAD) Additional Family Medical History / Comment(s): had CABG in her 70s Medications and Allergies Home Medications Medication Instructions Recorded Confirmed Type Aspirin 81 mg PO DAILY #30 chewable 02/06/18 01/20/22 Rx metFORMIN HCL [Glucophage] 1,000 mg PO BID 07/16/21 01/20/22 History Apixaban [Eliquis] 5 mg PO BID #60 tab 08/02/21 01/20/22 Rx Pantoprazole [Protonix] 40 mg PO AC-BRKFST #30 tab 08/02/21 01/20/22 Rx Furosemide [Lasix] 40 mg PO DAILY 08/04/21 01/20/22 History Ondansetron Odt [Zofran Odt] 4 mg PO Q12HR PRN #20 tab 09/08/21 01/20/22 Rx Cephalexin [Keflex] 500 mg PO QID 10 Days #40 cap 01/18/22 01/20/22 Rx Sulfamethox-Tmp 800-160Mg [Bactrim 1 tab PO Q12HR #28 tab 01/18/22 01/20/22 Rx DS 800-160 mg] Atorvastatin Calcium [Lipitor] 40 mg PO HS 01/20/22 01/20/22 History Metoprolol Tartrate [Lopressor] 12.5 mg PO BID 01/20/22 01/20/22 History Allergies Allergy/AdvReac Type Severity Reaction Status Date / Time No Known Allergies Allergy Verified 01/20/22 22:52 Surgical - Exam Vital Signs Temp Pulse Resp BP Pulse Ox 98.2 F 82 20 113/76 96 01/20/22 17:04 01/20/22 17:04 01/20/22 17:04 01/20/22 17:04 01/20/22 17:04 Gen. is a pleasant cooperative male in no acute distress. HEENT is normal cephalic, atraumatic, extracted and was intact. Heart appears regular. Lungs are clear bilaterally. Abdomen is soft. Healed chest incision. Right lower extremity warm and dry. Left lower extremity at the medial knee there is an area of mild induration and slight warmth with mild erythema. It is at the site of a previous puncture site from the vein harvest. Results Computed tomography scan is reviewed. Collect the fluid of the left medial knee. No evidence of leukocytosis - Labs 01/21/22 03:51 01/21/22 03:47 Abnormal Lab Results - Last 24 Hours (Table) 01/20/22 01/20/22 01/20/22 Range/Units 19:58 19:58 20:11 RBC 4.15 L (4.30-5.90) m/uL Hgb (13.0-17.5) gm/dL Hct (39.0-53.0) % Lymphocytes # 0.9 L (1.0-4.8) k/uL Sodium 133 L (137-145) mmol/L Potassium (3.5-5.1) mmol/L Chloride 89 L (98-107) mmol/L BUN 34 H (9-20) mg/dL Creatinine 1.95 H (0.66-1.25) mg/dL Glucose 161 H (74-99) mg/dL POC Glucose (mg/dL) (70-110) mg/dL Plasma Lactic Acid Loco 2.5 H* (0.7-2.0) mmol/L 01/20/22 01/21/22 01/21/22 Range/Units 23:36 03:47 03:51 RBC 3.55 L (4.30-5.90) m/uL Hgb 11.4 L (13.0-17.5) gm/dL Hct 33.7 L (39.0-53.0) % Lymphocytes # 0.9 L (1.0-4.8) k/uL Sodium 132 L (137-145) mmol/L Potassium 3.2 L (3.5-5.1) mmol/L Chloride 94 L (98-107) mmol/L BUN 33 H (9-20) mg/dL Creatinine 1.66 H (0.66-1.25) mg/dL Glucose 228 H (74-99) mg/dL POC Glucose (mg/dL) (70-110) mg/dL Plasma Lactic Acid Loco 2.3 H* (0.7-2.0) mmol/L 01/21/22 01/21/22 01/21/22 Range/Units 03:51 07:52 11:40 RBC (4.30-5.90) m/uL Hgb (13.0-17.5) gm/dL Hct (39.0-53.0) % Lymphocytes # (1.0-4.8) k/uL Sodium (137-145) mmol/L Potassium (3.5-5.1) mmol/L Chloride (98-107) mmol/L BUN (9-20) mg/dL Creatinine (0.66-1.25) mg/dL Glucose (74-99) mg/dL POC Glucose (mg/dL) 138 H 152 H (70-110) mg/dL Plasma Lactic Acid Loco 3.0 H* (0.7-2.0) mmol/L 01/21/22 Range/Units 16:34 RBC (4.30-5.90) m/uL Hgb (13.0-17.5) gm/dL Hct (39.0-53.0) % Lymphocytes # (1.0-4.8) k/uL Sodium (137-145) mmol/L Potassium (3.5-5.1) mmol/L Chloride (98-107) mmol/L BUN (9-20) mg/dL Creatinine (0.66-1.25) mg/dL Glucose (74-99) mg/dL POC Glucose (mg/dL) 185 H (70-110) mg/dL Plasma Lactic Acid Loco (0.7-2.0) mmol/L Microbiology - Last 24 Hours (Table) 01/20/22 19:50 Blood Culture - Final Blood Diabetes panel 01/20/22 01/21/22 Range/Units 19:58 03:47 Sodium 133 L 132 L (137-145) mmol/L Potassium 3.7 3.2 L (3.5-5.1) mmol/L Chloride 89 L 94 L (98-107) mmol/L Carbon Dioxide 30 26 (22-30) mmol/L BUN 34 H 33 H (9-20) mg/dL Creatinine 1.95 H 1.66 H (0.66-1.25) mg/dL Glucose 161 H 228 H (74-99) mg/dL Calcium 9.5 8.4 (8.4-10.2) mg/dL AST 17 (17-59) U/L ALT 11 (4-49) U/L Alkaline Phosphatase 80 (38-126) U/L Total Protein 8.0 (6.3-8.2) g/dL Albumin 4.6 (3.5-5.0) g/dL Calcium panel 01/20/22 01/21/22 Range/Units 19:58 03:47 Calcium 9.5 8.4 (8.4-10.2) mg/dL Albumin 4.6 (3.5-5.0) g/dL Pituitary panel 01/20/22 01/21/22 Range/Units 19:58 03:47 Sodium 133 L 132 L (137-145) mmol/L Potassium 3.7 3.2 L (3.5-5.1) mmol/L Chloride 89 L 94 L (98-107) mmol/L Carbon Dioxide 30 26 (22-30) mmol/L BUN 34 H 33 H (9-20) mg/dL Creatinine 1.95 H 1.66 H (0.66-1.25) mg/dL Glucose 161 H 228 H (74-99) mg/dL Calcium 9.5 8.4 (8.4-10.2) mg/dL Adrenal panel 01/20/22 01/21/22 Range/Units 19:58 03:47 Sodium 133 L 132 L (137-145) mmol/L Potassium 3.7 3.2 L (3.5-5.1) mmol/L Chloride 89 L 94 L (98-107) mmol/L Carbon Dioxide 30 26 (22-30) mmol/L BUN 34 H 33 H (9-20) mg/dL Creatinine 1.95 H 1.66 H (0.66-1.25) mg/dL Glucose 161 H 228 H (74-99) mg/dL Calcium 9.5 8.4 (8.4-10.2) mg/dL Total Bilirubin 1.1 (0.2-1.3) mg/dL AST 17 (17-59) U/L ALT 11 (4-49) U/L Alkaline Phosphatase 80 (38-126) U/L Total Protein 8.0 (6.3-8.2) g/dL Albumin 4.6 (3.5-5.0) g/dL Assessment and Plan Assessment: Left medial knee fluid collection Vein harvest 2021 A. fib on anticoagulation Plan: Given the appearance on imaging and the patient's discomfort of the bedside it was decided to go forward with a bedside aspiration and drainage. The area was cleansed with ChloraPrep. Anesthetic was instilled. An 18-gauge needle was used to aspirate fluid. A straw-colored and appearing like serous fluid. No turbid look. No purulent drainage. Approximately 20 mL was aspirated. It was sent for culture. A pressure dressing was placed. The patient tolerated the procedure well. We will await pending cultures to see if patient needs further debridement. Likely is just a seroma
[2022-01-21 20:11] LABS: Glucose,Whole Blood 186 mg/dL (70-110)
[2022-01-21] MEDS: ATORVASTATIN 40 MG TAB PO SCH (21:19)
--- NOTE | 2022-01-22 00:18 | P.CONS ---
History of Present Illness - Reason for Consult Consult date: 01/21/22 - History of Present Illness Patient is a 76-year male with a past medical he significant for coronary artery disease in this patient with status post coronary artery bypass grafting on 07/17/2021 patient mention he did have a vein taken from his bilateral legs, patient did mention that right side has healed up however he did have problem with occasional swelling to the left leg vein harvest site which is on the medial aspect of his left leg at the knee area patient mention he did have recurrent swelling or redness and has been evaluated in the past and treated for possible infection patient was doing okay until Sunday when he was done with his cardiac rehab exercises went home patient noticed to have discomfort on the left medial leg area and also in the left groin patient noticed the left medial leg has been swollen and red and painful patient describes the pain to be more of a sharp in nature patient mention he did came to the ER on 01/18/2022 with the patient was evaluated by the ER physician patient mention he was sent home on 2 antibiotics in the form of Bactrim and Keflex and was advised if any worsening swelling or redness to come back to the ER patient mention he did not have any improvement as he presented back to the ER has been complaining of pain and swelling to the left medial leg around the knee patient was describing the pain to be more of a sharp in nature almost 10 out of 10 when he presented however seem to have some improvement with the pain medication currently do not have any open wound or any drainage patient on presentation to the hospital was afebrile and no fever have been recorded subsequently patient did have a normal white count without left shift BUN and creatinine was mildly elevated did have elevated lactic acid patient is currently being treated with vancomycin and Zosyn infectious disease was consulted for further management of antibiotic therapy, patient did have a CT of the left lower extremity fluid collection at the level of the medial knee within the subcutaneous tissue at the center Noted This Could Reflect Hematoma Infected Collection Not Excluded Past Medical History Past Medical History: Coronary Artery Disease (CAD), Diabetes Mellitus, Hyperlipidemia, Hypertension, Myocardial Infarction ([place]) Additional Past Medical History / Comment(s): Pt recently admitted to [facility] on 07/16/21 with NSTEMI, new cardiomyopathy, acute systolic chf, 1st degree heart block/paroxysmal 2 degree and 3rd degree heart block, hypotension. Pt had cardiac cath/DELVIS/ CABG 3 vessel with aortic valve replacement. Last Myocardial Infarction Date:: 07/16/21 History of Any Multi-Drug Resistant Organisms: None Reported Past Surgical History: Cardiac Valve Replacement, Heart Catheterization With Stent, Hernia Repair Additional Past Surgical History / Comment(s): Right knee surgery CUT OUT CARTIL AGE, hernia repair Past Anesthesia/Blood Transfusion Reactions: No Reported Reaction Date of Last Stent Placement:: 07/16/21 Past Psychological History: No Psychological Hx Reported Smoking Status: Never smoker Past Alcohol Use History: None Reported Past Drug Use History: None Reported - Past Family History Father Additional Family Medical History / Comment(s): AT AGE 84-CANCER OF LARNYX (SMOKER), CARDIAC PROBLEMS Mother Family Medical History: Diabetes Mellitus Additional Family Medical History / Comment(s): AT AGE 83- HAD A PITUITARY TUMOR REMOVED HAD SON CRISIS Sister(s) Family Medical History: Coronary Artery Disease (CAD) Additional Family Medical History / Comment(s): had CABG in her 70s Medications and Allergies Home Medications Medication Instructions Recorded Confirmed Type Aspirin 81 mg PO DAILY #30 chewable 02/06/18 01/20/22 Rx metFORMIN HCL [Glucophage] 1,000 mg PO BID 07/16/21 01/20/22 History Apixaban [Eliquis] 5 mg PO BID #60 tab 08/02/21 01/20/22 Rx Pantoprazole [Protonix] 40 mg PO AC-BRKFST #30 tab 08/02/21 01/20/22 Rx Furosemide [Lasix] 40 mg PO DAILY 08/04/21 01/20/22 History Ondansetron Odt [Zofran Odt] 4 mg PO Q12HR PRN #20 tab 09/08/21 01/20/22 Rx Cephalexin [Keflex] 500 mg PO QID 10 Days #40 cap 01/18/22 01/20/22 Rx Sulfamethox-Tmp 800-160Mg [Bactrim 1 tab PO Q12HR #28 tab 01/18/22 01/20/22 Rx DS 800-160 mg] Atorvastatin Calcium [Lipitor] 40 mg PO HS 01/20/22 01/20/22 History Metoprolol Tartrate [Lopressor] 12.5 mg PO BID 01/20/22 01/20/22 History Allergies Allergy/AdvReac Type Severity Reaction Status Date / Time No Known Allergies Allergy Verified 01/20/22 22:52 Physical Exam Vitals: Vital Signs Temp Pulse Pulse Resp BP BP Pulse Ox 01/21/22 07:47 98.7 F 75 18 110/64 97 01/21/22 01:57 98.0 F 89 17 101/64 97 01/21/22 00:32 65 18 111/69 97 01/20/22 17:04 98.2 F 82 20 113/76 96 Intake and Output 01/20/22 01/21/22 01/21/22 22:59 06:59 14:59 Intake Total 1974 Balance 1974 Intake: Intake, IV Titration 1475 Amount Clindamycin 600 mg In 50 Dextrose 5% in Water 50 ml @ 50 mls/hr IVPB Q6H [facility] Rx#:[id number] Clindamycin 900 mg In 50 Dextrose 5% in Water 50 ml @ 50 mls/hr IVPB ONCE [facility] Rx#:[id number] Sodium Chloride 0.9% 1, 375 000 ml @ 75 mls/hr IV . [id number] [facility] Rx#:[id number] Sodium Chloride 0.9% 1, 1000 000 ml @ 999 mls/hr IV . Q1H1M [facility] Rx#:[id number] Oral 500 Other: Voiding Method Urinal # Voids 3 Weight 86.183 kg 86.183 kg Results CBC & Chem 7: 01/21/22 03:51 01/21/22 03:47 Labs: Abnormal Lab Results - Last 24 Hours (Table) 01/20/22 01/20/22 01/20/22 Range/Units 19:58 19:58 20:11 RBC 4.15 L (4.30-5.90) m/uL Hgb (13.0-17.5) gm/dL Hct (39.0-53.0) % Lymphocytes # 0.9 L (1.0-4.8) k/uL Sodium 133 L (137-145) mmol/L Potassium (3.5-5.1) mmol/L Chloride 89 L (98-107) mmol/L BUN 34 H (9-20) mg/dL Creatinine 1.95 H (0.66-1.25) mg/dL Glucose 161 H (74-99) mg/dL POC Glucose (mg/dL) (70-110) mg/dL Plasma Lactic Acid Looc 2.5 H* (0.7-2.0) mmol/L 01/20/22 01/21/22 01/21/22 Range/Units 23:36 03:47 03:51 RBC 3.55 L (4.30-5.90) m/uL Hgb 11.4 L (13.0-17.5) gm/dL Hct 33.7 L (39.0-53.0) % Lymphocytes # 0.9 L (1.0-4.8) k/uL Sodium 132 L (137-145) mmol/L Potassium 3.2 L (3.5-5.1) mmol/L Chloride 94 L (98-107) mmol/L BUN 33 H (9-20) mg/dL Creatinine 1.66 H (0.66-1.25) mg/dL Glucose 228 H (74-99) mg/dL POC Glucose (mg/dL) (70-110) mg/dL Plasma Lactic Acid Loco 2.3 H* (0.7-2.0) mmol/L 01/21/22 01/21/22 01/21/22 Range/Units 03:51 07:52 11:40 RBC (4.30-5.90) m/uL Hgb (13.0-17.5) gm/dL Hct (39.0-53.0) % Lymphocytes # (1.0-4.8) k/uL Sodium (137-145) mmol/L Potassium (3.5-5.1) mmol/L Chloride (98-107) mmol/L BUN (9-20) mg/dL Creatinine (0.66-1.25) mg/dL Glucose (74-99) mg/dL POC Glucose (mg/dL) 138 H 152 H (70-110) mg/dL Plasma Lactic Acid Loco 3.0 H* (0.7-2.0) mmol/L Assessment and Plan Plan: 1patient presented to hospital with a painful lump to the left medial leg around the knee area and this patient mention site of vein harvest for the coronary artery bypass graft in this patient CT did shows evidence of fluid collection concerning for possible hematoma versus infected hematoma. 2borderline kidney function high risk of nephrotoxicity. 3Marked area of the swelling and redness. 4await vascular surgery evaluation for possible debridement and deep culture versus aspirate. 5continue with the vancomycin however discontinue Zosyn to decrease risk of nephrotoxicity. We will follow on clinical condition and cultures to further adjust medication if needed Thank you for this consultation will follow this patient along with you Time with Patient: Greater than 30
[2022-01-22 02:04] LABS: Glucose,Whole Blood 199 mg/dL (70-110)
[2022-01-22] MEDS: SODIUM CHLORIDE 0.9% 1,000 ML IV SCH ×2 (02:26→17:17)
[2022-01-22] MEDS: VANCOMYCIN 1,500 MG in SODIUM CHLORIDE 0.9% 250 ML IVPB SCH (05:44)
[2022-01-22 06:10] LABS: Glucose,Whole Blood 159 mg/dL (70-110)
[2022-01-22 07:01] LABS: Glucose,Whole Blood 163 mg/dL (70-110)
[2022-01-22] MEDS: INSULIN ASPART (NovoLOG) 100 UNIT/ML VIAL SQ SCH ×4 (09:00→21:02)
[2022-01-22] MEDS: METOPROLOL TARTRATE 12.5 MG TAB PO SCH ×2 (09:01→21:02)
[2022-01-22] MEDS: APIXABAN 5 MG TAB PO SCH ×2 (09:01→21:02)
[2022-01-22] MEDS: ASPIRIN 81 MG PO SCH (09:01)
[2022-01-22] MEDS: PANTOPRAZOLE 40 MG/10 ML VIAL IVP SCH (09:02)
[2022-01-22 11:42] LABS: Glucose,Whole Blood 133 mg/dL (70-110)
--- NOTE | 2022-01-22 16:33 | P.PN ---
Subjective Progress Note Date: 01/22/22 Principal diagnosis: Left leg cellulitis Showed left cellulitis on clindamycin s/p bedside I and D Objective - Vital Signs Vital signs: Vital Signs Temp 99.0 F 01/22/22 14:00 Pulse 75 01/22/22 14:00 Resp 16 01/22/22 14:00 BP 118/67 01/22/22 14:00 Pulse Ox 96 01/22/22 14:00 FiO2 Intake & Output 01/21/22 01/22/22 01/22/22 18:59 06:59 18:59 Intake Total 1080 2500 Output Total 550 380 Balance 530 2120 Intake: Intake, IV Titration 1000 Amount Piperacillin-Tazobactam 3 100 .375 gm In Sodium Chloride 0.9% 100 ml @ 25 mls/hr IVPB Q8H [facility] Rx#: [id number] Sodium Chloride 0.9% 1, 900 000 ml @ 75 mls/hr IV . [id number] [facility] Rx#:[id number] Oral 1080 1500 Output: Urine 550 380 Other: Voiding Method Urinal # Voids 3 5 - Constitutional General appearance: Present: no acute distress - Respiratory Respiratory: bilateral: CTA - Cardiovascular Rhythm: regular - Gastrointestinal General gastrointestinal: Present: normal bowel sounds - Integumentary Integumentary: Present: normal - Musculoskeletal Musculoskeletal Comment(s): erythema and swelling of the left foot - Psychiatric Psychiatric: Present: appropriate affect - Labs CBC & Chem 7: 01/21/22 03:51 01/22/22 05:56 Labs: Abnormal Lab Results - Last 24 Hours (Table) 01/21/22 01/21/22 01/22/22 Range/Units 16:34 20:08 02:02 Creatinine (0.66-1.25) mg/dL POC Glucose (mg/dL) 185 H 186 H 199 H (70-110) mg/dL 01/22/22 01/22/22 01/22/22 Range/Units 05:56 06:09 07:00 Creatinine 1.40 H (0.66-1.25) mg/dL POC Glucose (mg/dL) 159 H 163 H (70-110) mg/dL 01/22/22 Range/Units 11:40 Creatinine (0.66-1.25) mg/dL POC Glucose (mg/dL) 133 H (70-110) mg/dL Microbiology - Last 24 Hours (Table) 01/21/22 18:45 Gram Stain - Preliminary Knee - Left Wound Culture - Preliminary 01/20/22 19:50 Blood Culture Gram Stain - Preliminary Blood Blood Culture - Preliminary Staphylococcus epidermidis 01/20/22 20:05 Blood Culture - Preliminary Blood No Growth after 24 hours 01/21/22 18:45 Anaerobic Culture - Preliminary Knee - Left 01/20/22 19:50 Blood Culture - Final Blood Assessment and Plan (1) Cellulitis and abscess of left leg Narrative/Plan: Status post I and D , continue clindamycin patient feels that pain is worse appreciate surgery's input Current Visit: Yes Status: Acute Code(s): L03.116 - CELLULITIS OF LEFT LOWER LIMB; L02.416 - CUTANEOUS ABSCESS OF LEFT LOWER LIMB SNOMED Code(s): 206811809 (2) Congestive heart failure Narrative/Plan: Continue current patient compensated monitor fluid status Current Visit: No Status: Acute Code(s): I50.9 - HEART FAILURE, UNSPECIFIED SNOMED Code(s): 81498628 (3) Hypoglycemia Narrative/Plan: Will continue sliding-scale coverage Current Visit: No Status: Acute Code(s): E16.2 - HYPOGLYCEMIA, UNSPECIFIED SNOMED Code(s): 186875114
[2022-01-22 16:52] LABS: Glucose,Whole Blood 188 mg/dL (70-110)
[2022-01-22 20:07] LABS: Glucose,Whole Blood 149 mg/dL (70-110)
[2022-01-22] MEDS: ATORVASTATIN 40 MG TAB PO SCH (21:02)
[2022-01-23 02:19] LABS: Glucose,Whole Blood 163 mg/dL (70-110)
[2022-01-23] MEDS: SODIUM CHLORIDE 0.9% 1,000 ML IV SCH ×2 (05:45→18:14)
[2022-01-23] MEDS: VANCOMYCIN 1,500 MG in SODIUM CHLORIDE 0.9% 250 ML IVPB SCH (05:45)
[2022-01-23 07:09] LABS: Glucose,Whole Blood 162 mg/dL (70-110)
[2022-01-23] MEDS: PANTOPRAZOLE 40 MG TABLET PO SCH (08:02)
[2022-01-23] MEDS: METOPROLOL TARTRATE 12.5 MG TAB PO SCH ×2 (08:02→22:26)
[2022-01-23] MEDS: APIXABAN 5 MG TAB PO SCH ×2 (08:02→22:26)
[2022-01-23] MEDS: INSULIN ASPART (NovoLOG) 100 UNIT/ML VIAL SQ SCH ×4 (08:02→22:26)
[2022-01-23] MEDS: ASPIRIN 81 MG PO SCH (08:02)
--- NOTE | 2022-01-23 08:21 | P.PN ---
Subjective Progress Note Date: 01/22/22 Principal diagnosis: Left lower leg cellulitis and question of abscess Patient is a 76-year-old male with a history of coronary bypass grafting on 07/17/2021 patient did have recurrent problem with the left medial thigh site of vein harvesting, presented to hospital with increasing pain swelling redness to the left medial knee area status post drainage by the vascular surgery on 01/21/2022. On today's evaluation that is 01/22/2022, the patient denies having any fever or chills, overall of pain and discomfort with left medial knee area has slight decrease in intensity, the patient denies having any chest pain or shortness of breath or cough no abdominal pain or diarrhea Objective - Vital Signs Vital signs: Vital Signs Temp 98.3 F 01/22/22 08:00 Pulse 74 01/22/22 08:00 Resp 16 01/22/22 08:00 BP 146/81 01/22/22 08:00 Pulse Ox 98 01/22/22 08:00 FiO2 Intake & Output 01/21/22 01/22/22 01/22/22 18:59 06:59 18:59 Intake Total 1080 2500 Output Total 550 380 Balance 530 2120 Intake: Intake, IV Titration 1000 Amount Piperacillin-Tazobactam 3 100 .375 gm In Sodium Chloride 0.9% 100 ml @ 25 mls/hr IVPB Q8H [facility] Rx#: [id number] Sodium Chloride 0.9% 1, 900 000 ml @ 75 mls/hr IV . [id number] [facility] Rx#:[id number] Oral 1080 1500 Output: Urine 550 380 Other: Voiding Method Urinal # Voids 3 - Exam GENERAL DESCRIPTION: An elderly male lying in bed in no distress RESPIRATORY SYSTEM: Unlabored breathing , decreased breath sounds at bases HEART: S1 S2 regular rate and rhythm , ABDOMEN: Soft , no tenderness EXTREMITIES: Left medial knee area did have a swelling redness and induration no drainage - Labs CBC & Chem 7: 01/21/22 03:51 01/23/22 05:39 Labs: Abnormal Lab Results - Last 24 Hours (Table) 01/21/22 01/21/22 01/22/22 Range/Units 16:34 20:08 02:02 Creatinine (0.66-1.25) mg/dL POC Glucose (mg/dL) 185 H 186 H 199 H (70-110) mg/dL 01/22/22 01/22/22 01/22/22 Range/Units 05:56 06:09 07:00 Creatinine 1.40 H (0.66-1.25) mg/dL POC Glucose (mg/dL) 159 H 163 H (70-110) mg/dL 01/22/22 Range/Units 11:40 Creatinine (0.66-1.25) mg/dL POC Glucose (mg/dL) 133 H (70-110) mg/dL Microbiology - Last 24 Hours (Table) 01/21/22 18:45 Gram Stain - Preliminary Knee - Left Wound Culture - Preliminary 01/20/22 19:50 Blood Culture Gram Stain - Preliminary Blood Blood Culture - Preliminary Staphylococcus epidermidis 01/20/22 20:05 Blood Culture - Preliminary Blood No Growth after 24 hours 01/21/22 18:45 Anaerobic Culture - Preliminary Knee - Left 01/20/22 19:50 Blood Culture - Final Blood Assessment and Plan (1) Cellulitis and abscess of left leg Current Visit: Yes Status: Acute Code(s): L03.116 - CELLULITIS OF LEFT LOWER LIMB; L02.416 - CUTANEOUS ABSCESS OF LEFT LOWER LIMB SNOMED Code(s): 628326670 Plan: 1patient presented to hospital with a painful lump to the left medial leg around the knee area and this patient mention site of vein harvest for the coronary artery bypass graft in this patient CT did shows evidence of fluid collection concerning for possible hematoma versus infected hematoma. 2patient is status post vascular surgery evaluation and drainage cultures are currently pending 3patient to continue with the vancomycin while waiting for the cultures to finalize Time with Patient: Less than 30
[2022-01-23 12:19] LABS: Glucose,Whole Blood 214 mg/dL (70-110)
[2022-01-23 13:15] VITALS: BMI 26.4
--- NOTE | 2022-01-23 14:17 | P.PN ---
Subjective Progress Note Date: 01/23/22 Principal diagnosis: left lower extremity cellulitis Patient is seen and examined as a follow-up. He underwent fluid aspiration 2 days ago with fluid studies with preliminary coming back as presumptive staph aureus. Infectious disease is following. He states that he is afebrile. Still has some tenderness and discomfort as well as redness at the site. States he believes that it might be getting slightly worse. Objective - Vital Signs Vital signs: Vital Signs Temp 97.7 F 01/23/22 06:45 Pulse 68 01/23/22 06:45 Resp 16 01/23/22 06:45 BP 161/82 01/23/22 06:45 Pulse Ox 96 01/23/22 06:45 FiO2 Intake & Output 01/22/22 01/23/22 01/23/22 18:59 06:59 18:59 Intake Total 590 Output Total 900 Balance -310 Intake: Oral 590 Output: Urine 900 Other: # Voids 5 - Exam General appearance: The patient is alert, oriented, appears in no acute distress. HET: Head is normocephalic and atraumatic. Pupils are equal and reactive. Neck: Supple without lymphadenopathy. Trachea midline. No audible carotid bruit. Extremities: Left lower extremity medial aspect of knee with induration, warm and erythema. Area is marked from admission, seems there may be some improvement in areas. Neurological: No focal deficits. Strength and sensation are grossly intact. - Labs CBC & Chem 7: 01/21/22 03:51 01/23/22 05:39 Labs: Abnormal Lab Results - Last 24 Hours (Table) 01/22/22 01/22/22 01/22/22 Range/Units 11:40 16:51 20:05 POC Glucose (mg/dL) 133 H 188 H 149 H (70-110) mg/dL 01/23/22 01/23/22 Range/Units 02:17 07:07 POC Glucose (mg/dL) 163 H 162 H (70-110) mg/dL Microbiology - Last 24 Hours (Table) 01/20/22 20:05 Blood Culture - Preliminary Blood No Growth after 48 hours 01/21/22 18:45 Gram Stain - Preliminary Knee - Left Wound Culture - Preliminary Presumptive Staph aureus Assessment and Plan Assessment: 1. Left medial knee fluid collection 2. Vein harvest July 2021 3. Atrial fibrillation on anticoagulation Plan: 1. Continue symptomatic and supportive care 2. Continue IV antibiotics recommended by infectious disease 3. Further recommendations forthcoming per vascular surgeon Thank you for this consultation, we will continue to follow The impression and plan of care has been dictated as directed. I performed a history and examination of this patient, discussed the same with the dictator. I agree with the dictator's note ,documented as a scribe. Any additional findings or plans will be noted.
[2022-01-23 16:50] LABS: Glucose,Whole Blood 199 mg/dL (70-110)
--- NOTE | 2022-01-23 18:44 | P.PN ---
Subjective Progress Note Date: 01/23/22 Principal diagnosis: Left knee cellulitis Patient was seen and examined. No acute events overnight. Patient reports slight improvement in his left knee redness and swelling. He denies any chest pain, shortness breath or palpitations. No nausea or vomiting. No fever or chills. Objective - Vital Signs Vital signs: Vital Signs Temp 97.6 F 01/23/22 14:00 Pulse 82 01/23/22 14:00 Resp 16 01/23/22 14:00 BP 158/77 01/23/22 14:00 Pulse Ox 98 01/23/22 14:00 FiO2 Intake & Output 01/22/22 01/23/22 01/23/22 18:59 06:59 18:59 Intake Total 590 760 Output Total 900 1000 Balance -310 -240 Weight 86.183 kg Intake: Oral 590 760 Output: Urine 900 1000 Other: # Voids 5 4 - Exam General: [non toxic], [no distress], [appears at stated age] Derm: [warm], [dry] Head: [atraumatic], [normocephalic], [symmetric] Eyes: [EOMI], [no lid lag], [anicteric sclera] Mouth: [no lip lesion], [mucus membranes moist] Cardiovascular: [S1S2 reg], [no murmur] Lungs: [CTA bilateral], [no rhonchi, no rales] , [no accessory muscle use] Abdominal: [soft], [ nontender to palpation], [no guarding], [no appreciable organomegaly] Ext: [no gross muscle atrophy], [erythema and swelling over the medial aspect of the left knee], [no contractures] Neuro: [no focal neuro deficits] Psych: [Alert], [oriented], [appropriate affect] - Labs CBC & Chem 7: 01/21/22 03:51 01/23/22 05:39 Labs: Abnormal Lab Results - Last 24 Hours (Table) 01/22/22 01/23/22 01/23/22 Range/Units 20:05 02:17 07:07 POC Glucose (mg/dL) 149 H 163 H 162 H (70-110) mg/dL 01/23/22 01/23/22 Range/Units 12:15 16:48 POC Glucose (mg/dL) 214 H 199 H (70-110) mg/dL Microbiology - Last 24 Hours (Table) 01/21/22 18:45 Anaerobic Culture - Preliminary Knee - Left 01/20/22 19:50 Blood Culture Gram Stain - Final Blood Blood Culture - Final Staphylococcus epidermidis 01/20/22 20:05 Blood Culture - Preliminary Blood No Growth after 48 hours 01/21/22 18:45 Gram Stain - Preliminary Knee - Left Wound Culture - Preliminary Presumptive Staph aureus Assessment and Plan Assessment: Assessment/plan Left lower extremity cellulitis with suspected underlying abscess -Vascular surgery and infectious disease consulted -Plans for I&D with packing if not improved tomorrow -Continue with IV antibiotics: Vancomycin -IV fluids -Involved the area marked to track progress CHAPARRO on chronic kidney disease -IV fluids Hypokalemia -Repeat BMP tomorrow morning Chronic conditions: A. fib, type II DM, CHF, hypothyroidism, CAD -Continue with home meds -Holding home Lasix dose at this time -Insulin sliding scale and blood glucose monitoring DVT prophylaxis -Eliquis Resolved: Lactic acidosis The patient is admitted with an anticipated greater than 2 midnight stay for evaluation of LLE cellulitis CODE STATUS: Full Code Discussed with: Patient Anticipated discharge date: 2-[address]: Home
[2022-01-23] MEDS ORDERED: VANCOMYCIN 1,500 MG in SODIUM CHLORIDE 0.9% 250 ML IVPB SCH (22:00)
[2022-01-23 22:22] LABS: Glucose,Whole Blood 271 mg/dL (70-110)
[2022-01-23] MEDS: ATORVASTATIN 40 MG TAB PO SCH (22:26)
[2022-01-24 02:11] LABS: Glucose,Whole Blood 138 mg/dL (70-110)
[2022-01-24] MEDS: SODIUM CHLORIDE 0.9% 1,000 ML IV SCH ×2 (06:32→19:31)
[2022-01-24 07:15] LABS: Glucose,Whole Blood 167 mg/dL (70-110)
[2022-01-24 07:19] LABS: African American GFR (CKD) 72 (>60 ml/min/1.73 sqM); Anion Gap 3 mmol/L; Blood Urea Nitrogen 17 mg/dL (9-20); Carbon Dioxide 27 mmol/L (22-30); Chloride 106 mmol/L (98-107); Glucose 144 mg/dL (74-99); Non-African American GFR(CKD) 62 (>60 ml/min/1.73 sqM); Potassium 3.8 mmol/L (3.5-5.1); Sodium 136 mmol/L (137-145)
[2022-01-24] MEDS: METOPROLOL TARTRATE 12.5 MG TAB PO SCH ×2 (08:15→21:28)
[2022-01-24] MEDS: ASPIRIN 81 MG PO SCH (08:30)
[2022-01-24] MEDS: PANTOPRAZOLE 40 MG TABLET PO SCH (08:30)
[2022-01-24] MEDS: INSULIN ASPART (NovoLOG) 100 UNIT/ML VIAL SQ SCH ×4 (08:30→21:28)
--- NOTE | 2022-01-24 08:32 | P.PN ---
Subjective Progress Note Date: 01/23/22 Principal diagnosis: Left lower leg cellulitis and question of abscess Patient is a 76-year-old male with a history of coronary bypass grafting on 07/17/2021 patient did have recurrent problem with the left medial thigh site of vein harvesting, presented to hospital with increasing pain swelling redness to the left medial knee area status post drainage by the vascular surgery on 01/21/2022. On today's evaluation that is 01/23/2022, the patient remains to be afebrile, the patient pain and discomfort to the left medial knee area has slight decrease in intensity, the patient denies having any chest pain or shortness of breath or cough no abdominal pain or diarrhea Objective - Vital Signs Vital signs: Vital Signs Temp 97.7 F 01/23/22 06:45 Pulse 68 01/23/22 06:45 Resp 16 01/23/22 06:45 BP 161/82 01/23/22 06:45 Pulse Ox 96 01/23/22 06:45 FiO2 Intake & Output 01/22/22 01/23/22 01/23/22 18:59 06:59 18:59 Intake Total 590 240 Output Total 900 1000 Balance -310 -760 Intake: Oral 590 240 Output: Urine 900 1000 Other: # Voids 5 - Exam GENERAL DESCRIPTION: An elderly male lying in bed in no distress RESPIRATORY SYSTEM: Unlabored breathing , decreased breath sounds at bases HEART: S1 S2 regular rate and rhythm , ABDOMEN: Soft , no tenderness EXTREMITIES: Left medial knee area did have a swelling redness and induration no drainage - Labs CBC & Chem 7: 01/21/22 03:51 01/24/22 06:14 Labs: Abnormal Lab Results - Last 24 Hours (Table) 01/22/22 01/22/22 01/23/22 Range/Units 16:51 20:05 02:17 POC Glucose (mg/dL) 188 H 149 H 163 H (70-110) mg/dL 01/23/22 01/23/22 Range/Units 07:07 12:15 POC Glucose (mg/dL) 162 H 214 H (70-110) mg/dL Microbiology - Last 24 Hours (Table) 01/20/22 19:50 Blood Culture Gram Stain - Final Blood Blood Culture - Final Staphylococcus epidermidis 01/20/22 20:05 Blood Culture - Preliminary Blood No Growth after 48 hours 01/21/22 18:45 Gram Stain - Preliminary Knee - Left Wound Culture - Preliminary Presumptive Staph aureus Assessment and Plan (1) Cellulitis and abscess of left leg Current Visit: Yes Status: Acute Code(s): L03.116 - CELLULITIS OF LEFT LOWER LIMB; L02.416 - CUTANEOUS ABSCESS OF LEFT LOWER LIMB SNOMED Code(s): 362259440 Plan: 1patient presented to hospital with a painful lump to the left medial leg arou nd the knee area and this patient mention site of vein harvest for the coronary artery bypass graft in this patient CT did shows evidence of fluid collection concerning for possible hematoma versus infected hematoma. 2patient is status post vascular surgery evaluation and drainage cultures are currently growing staph aureus 3patient to continue with the vancomycin while waiting for the cultures to finalize, however with concern for possible infected hematoma patient may benefit from further surgical debridement Time with Patient: Less than 30
--- NOTE | 2022-01-24 08:46 | P.PN ---
Subjective Progress Note Date: 01/24/22 Principal diagnosis: left lower extremity cellulitis Patient is seen and examined as a follow-up. He underwent fluid aspirationwith fluid studies with preliminary coming back as presumptive staph aureus. Infectious disease is following. He states that he is afebrile. Still has some tenderness and discomfort as well as redness at the site. States he believes that it might be getting slightly better. He denies any acute changes through the night. Denies any shortness of breath, chest pain, or abdominal pain. Objective - Vital Signs Vital signs: Vital Signs Temp 98.3 F 01/24/22 07:29 Pulse 72 01/24/22 07:29 Resp 16 01/24/22 07:29 BP 136/73 01/24/22 07:29 Pulse Ox 96 01/24/22 07:29 FiO2 Intake & Output 01/23/22 01/24/22 01/24/22 18:59 06:59 18:59 Intake Total 760 1080 Output Total 1000 1020 Balance -240 60 Weight 86.183 kg Intake: Oral 760 1080 Output: Urine 1000 1020 Other: Voiding Method Urinal # Voids 4 - Exam General appearance: The patient is alert, oriented, appears in no acute distress. HET: Head is normocephalic and atraumatic. Pupils are equal and reactive. Neck: Supple without lymphadenopathy. Trachea midline. No audible carotid bruit. Extremities: Left lower extremity medial aspect of knee with induration, warm and erythema. Area is marked from admission, seems there may be some improvement in areas. Neurological: No focal deficits. Strength and sensation are grossly intact. - Labs CBC & Chem 7: 01/21/22 03:51 01/24/22 06:14 Labs: Abnormal Lab Results - Last 24 Hours (Table) 01/23/22 01/23/22 01/23/22 Range/Units 12:15 16:48 22:20 Sodium (137-145) mmol/L Glucose (74-99) mg/dL POC Glucose (mg/dL) 214 H 199 H 271 H (70-110) mg/dL Calcium (8.4-10.2) mg/dL 01/24/22 01/24/22 01/24/22 Range/Units 02:10 06:14 07:11 Sodium 136 L (137-145) mmol/L Glucose 144 H (74-99) mg/dL POC Glucose (mg/dL) 138 H 167 H (70-110) mg/dL Calcium 8.0 L (8.4-10.2) mg/dL Microbiology - Last 24 Hours (Table) 01/20/22 20:05 Blood Culture - Preliminary Blood No Growth after 72 hours 01/21/22 18:45 Gram Stain - Final Knee - Left Wound Culture - Final Staphylococcus aureus 01/21/22 18:45 Anaerobic Culture - Preliminary Knee - Left 01/20/22 19:50 Blood Culture Gram Stain - Final Blood Blood Culture - Final Staphylococcus epidermidis Assessment and Plan Assessment: 1. Left medial knee fluid collection 2. Preliminary fluid culture positive for staph aureus 3. Vein harvest July 2021 4. Atrial fibrillation on anticoagulation Plan: 1. Continue symptomatic and supportive care 2. Continue IV antibiotics recommended by infectious disease 3. Plan for surgical incision and drainage this afternoon 4. Keep nothing by mouth Thank you for this consultation, we will continue to follow The impression and plan of care has been dictated as directed. I performed a history and examination of this patient, discussed the same with the dictator. I agree with the dictator's note ,documented as a scribe. Any additional findings or plans will be noted.
[2022-01-24] MEDS: APIXABAN 5 MG TAB PO SCH ×2 (11:04→21:28)
--- NOTE | 2022-01-24 11:35 | P.PN ---
Subjective Progress Note Date: 01/24/22 Feels okay, no chest pain no abdominal pain no nausea no vomiting no dizziness no shortness of breath. Remains afebrile. Objective - Vital Signs Vital signs: Vital Signs Temp 98.3 F 01/24/22 07:29 Pulse 72 01/24/22 07:29 Resp 16 01/24/22 07:29 BP 136/73 01/24/22 07:29 Pulse Ox 96 01/24/22 07:29 FiO2 Intake & Output 01/23/22 01/24/22 01/24/22 18:59 06:59 18:59 Intake Total 760 1080 Output Total 1000 1020 Balance -240 60 Weight 86.183 kg Intake: Oral 760 1080 Output: Urine 1000 1020 Other: Voiding Method Urinal # Voids 4 - Exam General: [non toxic], [no distress], [appears at stated age] Derm: [warm], [dry] Head: [atraumatic], [normocephalic], [symmetric] Eyes: [EOMI], [no lid lag], Mouth: [no lip lesion], [mucus membranes moist] Cardiovascular: [S1S2 reg], [no murmur] Lungs: Decreased breath sounds, no wheezing Abdominal: [soft], [ nontender to palpation], [no guarding], [no appreciable organomegaly] Ext: [no gross muscle atrophy], [erythema and swelling over the medial aspect of the left knee], [no contractures] Neuro: [no focal neuro deficits] Psych: [Alert], [oriented], [appropriate affect] - Labs CBC & Chem 7: 01/21/22 03:51 01/24/22 06:14 Labs: Abnormal Lab Results - Last 24 Hours (Table) 01/23/22 01/23/22 01/23/22 Range/Units 12:15 16:48 22:20 Sodium (137-145) mmol/L Glucose (74-99) mg/dL POC Glucose (mg/dL) 214 H 199 H 271 H (70-110) mg/dL Calcium (8.4-10.2) mg/dL 01/24/22 01/24/22 01/24/22 Range/Units 02:10 06:14 07:11 Sodium 136 L (137-145) mmol/L Glucose 144 H (74-99) mg/dL POC Glucose (mg/dL) 138 H 167 H (70-110) mg/dL Calcium 8.0 L (8.4-10.2) mg/dL Microbiology - Last 24 Hours (Table) 01/20/22 20:05 Blood Culture - Preliminary Blood No Growth after 72 hours 01/21/22 18:45 Gram Stain - Final Knee - Left Wound Culture - Final Staphylococcus aureus 01/21/22 18:45 Anaerobic Culture - Preliminary Knee - Left 01/20/22 19:50 Blood Culture Gram Stain - Final Blood Blood Culture - Final Staphylococcus epidermidis Assessment and Plan Plan: Left lower extremity cellulitis with suspected underlying abscess, wound cultures consistent with staph aureus -Vascular surgery and infectious disease consulted -Plans for I&D with packing today -Continue with IV antibiotics: Vancomycin -IV fluids CHAPARRO on chronic kidney disease -IV fluids, resolved, serum creatinine down to 1.1 from 1.9 at its peak Hypokalemia Replace as indicated Chronic conditions: A. fib, type II DM, CHF, hypothyroidism, CAD -Continue with home meds -Holding home Lasix dose at this time -Insulin sliding scale and blood glucose monitoring DVT prophylaxis -Eliquis Staph epi bacteremia likely a contaminant Resolved: Lactic acidosis CODE STATUS: Full Code Discussed with: Patient Anticipated discharge date: 2-[address]: Home
[2022-01-24 11:56] LABS: Glucose,Whole Blood 163 mg/dL (70-110)
[2022-01-24] MEDS ORDERED: LACTATED RINGERS 1,000 ML IV ONE (15:10)
[2022-01-24 15:11] LABS: Glucose,Whole Blood 129 mg/dL (70-110)
[2022-01-24] MEDS: ONDANSETRON 4 MG/2 ML VIAL IVP PRN (15:28)
[2022-01-24] MEDS ORDERED: fentaNYL (PF) 50 MCG/ML 2 ML AMP ONE (15:46)
[2022-01-24] MEDS ORDERED: KETAMINE 10 MG/ML 20 ML VIAL ONE (15:46)
[2022-01-24] MEDS ORDERED: MIDAZOLAM 2 MG/2 ML VIAL ONE (15:46)
[2022-01-24] MEDS ORDERED: PROPOFOL 10 MG/ML 20 ML VIAL IV ONE (15:46)
--- NOTE | 2022-01-24 17:20 | P.OP ---
Date of Procedure: 01/24/22 Preoperative Diagnosis: left medial lower leg cellulitis, MRSA infection Postoperative Diagnosis: Infected seroma left medial lower leg Procedure(s) Performed: Incision and drainage of the left lower leg infected seroma Anesthesia: MAC Surgeon: Braydon Amaya Estimated Blood Loss (ml): 5 Pathology: other (wound cultures) Condition: stable Disposition: PACU Indications for Procedure: 76 year old male with left sided medial leg wound, swelling and cellulitis at a previous vein harvesting site presents to the operating room for incision and drainage. He previously had the area aspirated which demonstrated MRSA infection. The site hasn't improved and is causing worsening pain and therefore he presents for drainage. Description of Procedure: After written and informed consent was obtained from the patient and all risks, benefits and complications were described the patient was brought to the operative suite and laid in a supine position. The area of the left leg was prepped and draped in the usual fashion. Timeout was performed in usual fa shion. Antibiotics given prior to incision. A small incision was then created at the swelling site and turbid fluid was expressed and cultures were taken. Using a stat the debris was fractured and the seroma was expressed in its entirety. The wound was copiously irrigated and then packed with gauze. The area was cleansed and dressings were placed. The patient tolerated the procedure well and was sent to PACU for recovery.
[2022-01-24 21:08] LABS: Glucose,Whole Blood 157 mg/dL (70-110)
[2022-01-24] MEDS: ATORVASTATIN 40 MG TAB PO SCH (21:28)
[2022-01-25 02:02] LABS: Glucose,Whole Blood 168 mg/dL (70-110)
[2022-01-25 06:53] LABS: Glucose,Whole Blood 148 mg/dL (70-110)
--- NOTE | 2022-01-25 07:24 | P.PN ---
Subjective Progress Note Date: 01/24/22 Principal diagnosis: Left lower leg cellulitis and question of abscess Patient is a 76-year-old male with a history of coronary bypass grafting on 07/17/2021 patient did have recurrent problem with the left medial thigh site of vein harvesting, presented to hospital with increasing pain swelling redness to the left medial knee area status post drainage by the vascular surgery on 01/21/2022. On today's evaluation that is 01/24/2022, the patient denies having any fever or any chills, the patient pain and discomfort to the left medial knee area is currently controlled with pain medication, the patient denies having any chest pain or shortness of breath or cough, the patient denies abdominal pain or diarrhea Objective - Vital Signs Vital signs: Vital Signs Temp 98.3 F 01/24/22 07:29 Pulse 72 01/24/22 07:29 Resp 16 01/24/22 07:29 BP 136/73 01/24/22 07:29 Pulse Ox 96 01/24/22 07:29 FiO2 Intake & Output 01/23/22 01/24/22 01/24/22 18:59 06:59 18:59 Intake Total 760 1080 Output Total 1000 1020 Balance -240 60 Weight 86.183 kg Intake: Oral 760 1080 Output: Urine 1000 1020 Other: Voiding Method Urinal # Voids 4 - Exam GENERAL DESCRIPTION: An elderly male lying in bed in no distress RESPIRATORY SYSTEM: Unlabored breathing , decreased breath sounds at bases HEART: S1 S2 regular rate and rhythm , ABDOMEN: Soft , no tenderness EXTREMITIES: Left medial knee area did have a swelling redness and induration no drainage - Labs CBC & Chem 7: 01/21/22 03:51 01/24/22 06:14 Labs: Abnormal Lab Results - Last 24 Hours (Table) 01/23/22 01/23/22 01/24/22 Range/Units 16:48 22:20 02:10 Sodium (137-145) mmol/L Glucose (74-99) mg/dL POC Glucose (mg/dL) 199 H 271 H 138 H (70-110) mg/dL Calcium (8.4-10.2) mg/dL 01/24/22 01/24/22 01/24/22 Range/Units 06:14 07:11 11:52 Sodium 136 L (137-145) mmol/L Glucose 144 H (74-99) mg/dL POC Glucose (mg/dL) 167 H 163 H (70-110) mg/dL Calcium 8.0 L (8.4-10.2) mg/dL Microbiology - Last 24 Hours (Table) 01/20/22 20:05 Blood Culture - Preliminary Blood No Growth after 72 hours 01/21/22 18:45 Gram Stain - Final Knee - Left Wound Culture - Final Staphylococcus aureus 01/21/22 18:45 Anaerobic Culture - Preliminary Knee - Left 01/20/22 19:50 Blood Culture Gram Stain - Final Blood Blood Culture - Final Staphylococcus epidermidis Assessment and Plan (1) Cellulitis and abscess of left leg Current Visit: Yes Status: Acute Code(s): L03.116 - CELLULITIS OF LEFT LOWER LIMB; L02.416 - CUTANEOUS ABSCESS OF LEFT LOWER LIMB SNOMED Code(s): 667151072 Plan: 1patient presented to hospital with a painful lump to the left medial leg around the knee area and this patient mention site of vein harvest for the coronary artery bypass graft in this patient CT did shows evidence of fluid collection concerning for possible hematoma versus infected hematoma. 2patient is status post vascular surgery evaluation and drainage cultures are currently growing MSSA, patient scheduled for further drainage this afternoon 3we will discontinue the vancomycin and start the patient on cefazolin 2 g every 8 hours Time with Patient: Less than 30
[2022-01-25] MEDS: METOPROLOL TARTRATE 12.5 MG TAB PO SCH ×2 (07:52→21:12)
[2022-01-25] MEDS: ASPIRIN 81 MG PO SCH (07:52)
[2022-01-25] MEDS: INSULIN ASPART (NovoLOG) 100 UNIT/ML VIAL SQ SCH ×4 (07:52→21:12)
[2022-01-25] MEDS: PANTOPRAZOLE 40 MG TABLET PO SCH (07:52)
[2022-01-25] MEDS: SODIUM CHLORIDE 0.9% 1,000 ML IV SCH ×2 (07:52→22:13)
[2022-01-25] MEDS: APIXABAN 5 MG TAB PO SCH ×2 (07:52→21:12)
--- NOTE | 2022-01-25 09:57 | P.PN ---
Subjective Progress Note Date: 01/25/22 Principal diagnosis: left lower extremity cellulitis Patient is seen and examined as a follow-up. He underwent fluid aspiration with fluid studies with preliminary coming back as presumptive staph aureus. Infectious disease is following and started him on antibiotics. However he continued to have significant induration and redness. Yesterday he underwent a surgical incision and drainage in the operating room. Today he states it does feel better however he did have some pain through the night which required some morphine. He's been afebrile. Deep tissue cultures were sent. Objective - Vital Signs Vital signs: Vital Signs Temp 98.4 F 01/25/22 06:49 Pulse 81 01/25/22 06:49 Resp 18 01/25/22 06:49 BP 144/77 01/25/22 06:49 Pulse Ox 91 L 01/25/22 06:49 FiO2 Intake & Output 01/24/22 01/25/22 01/25/22 18:59 06:59 18:59 Intake Total 300 Output Total 305 475 Balance -5 -475 Intake: IV 300 Output: Urine 300 475 Estimated Blood Loss 5 Other: Voiding Method Toilet # Voids 3 - Exam General appearance: The patient is alert, oriented, appears in no acute distress. HET: Head is normocephalic and atraumatic. Pupils are equal and reactive. Neck: Supple without lymphadenopathy. Trachea midline. No audible carotid bruit. Extremities: Left lower extremity medial aspect below knee incision site with the iodoform packing. Packing removed. Induration and erythema improved. Repacked with iodoform, and dressed with 4 x 4 and Kerlix. Neurological: No focal deficits. Strength and sensation are grossly intact. - Labs CBC & Chem 7: 01/21/22 03:51 01/24/22 06:14 Labs: Abnormal Lab Results - Last 24 Hours (Table) 01/24/22 01/24/22 01/24/22 Range/Units 11:52 15:09 21:06 POC Glucose (mg/dL) 163 H 129 H 157 H (70-110) mg/dL 01/25/22 01/25/22 Range/Units 02:00 06:52 POC Glucose (mg/dL) 168 H 148 H (70-110) mg/dL Microbiology - Last 24 Hours (Table) 01/24/22 16:13 Gram Stain - Preliminary Leg - Left Wound Culture - Preliminary 01/24/22 16:13 Anaerobic Culture - Preliminary Leg - Left 01/20/22 20:05 Blood Culture - Preliminary Blood No Growth after 96 hours Assessment and Plan Assessment: 1. Left medial knee fluid collection, post incision and drainage 2. Fluid culture positive for staph aureus 3. Vein harvest July 2021 4. Atrial fibrillation on anticoagulation Plan: 1. Continue symptomatic and supportive care 2. Continue IV antibiotics recommended by infectious disease 3. Daily dressing change with iodoform packing, dressed with 4 x 4 and Kerlix wrap 4. Patient will need outpatient wound care Thank you for this consultation, we will continue to follow The impression and plan of care has been dictated as directed. Dr. Nava I performed a history and examination of this patient, discussed the same with the dictator. I agree with the dictator's note ,documented as a scribe. Any additional findings or plans will be noted.
[2022-01-25 10:19] LABS: Basophils # (A) 0.08 X 10*3/uL (0.00-0.10); Basophils % (A) 1.2 %; Eosinophils # (A) 0.25 X 10*3/uL (0.04-0.35); Eosinophils % (A) 3.6 %; HGB 9.9 g/dL (13.0-17.0); Immature Grans, Automated 0.6 %; Lymphocytes # (A) 1.27 X 10*3/uL (0.90-5.00); Lymphocytes % (A) 18.4 %; MCH 31.6 pg (27.0-32.0); MCV 95.8 fL (80.0-97.0); Mean Platelet Volume 10.1 fL (9.5-12.2); Monocytes # (A) 0.99 X 10*3/uL (0.20-1.00); Monocytes % (A) 14.3 %; NRBC Per 100 WBC 0 /100 WBCS (0.0-0.0); Neutrophils # (A) 4.28 X 10*3/uL (1.80-7.70); Neutrophils % (A) 61.9 %; Platelet Count 203 X 10*3/uL (140-440); RBC 3.13 X 10*6/uL (4.40-5.60); RDW 13.6 % (11.5-14.5); WBC 6.91 X 10*3/uL (4.50-10.00)
[2022-01-25 10:38] LABS: African American GFR (CKD) 55.4 (60.0-200.0); Albumin 3.2 g/dL (3.8-4.9); Albumin/Globulin Ratio 1.19 (1.60-3.17); Anion Gap 8.9 mmol/L (10.00-18.00); BUN/Creat Ratio 11.93 Ratio (12.00-20.00); Blood Urea Nitrogen 16.7 mg/dL (9.0-27.0); Calcium 8.5 mg/dL (8.7-10.3); Carbon Dioxide 27.1 mmol/L (20.0-27.5); Globulin 2.7 g/dL (1.6-3.3); Non-African American GFR(CKD) 47.8 (60.0-200.0); Potassium 4.5 mmol/L (3.5-5.5); Total Bilirubin 0.4 mg/dL (0.30-1.20); Total Protein 5.9 g/dL (6.2-8.2)
--- NOTE | 2022-01-25 11:05 | P.PN ---
Subjective Progress Note Date: 01/25/22 Feels okay, no chest pain no abdominal pain no nausea no vomiting no dizziness no shortness of breath. Remains afebrile. Status post I&D yesterday Objective - Vital Signs Vital signs: Vital Signs Temp 98.4 F 01/25/22 06:49 Pulse 81 01/25/22 06:49 Resp 18 01/25/22 06:49 BP 144/77 01/25/22 06:49 Pulse Ox 91 L 01/25/22 06:49 FiO2 Intake & Output 01/24/22 01/25/22 01/25/22 18:59 06:59 18:59 Intake Total 300 180 Output Total 305 475 Balance -5 -475 180 Intake: IV 300 Oral 180 Output: Urine 300 475 Estimated Blood Loss 5 Other: Voiding Method Toilet Toilet # Voids 3 - Exam General: [non toxic], [no distress], [appears at stated age] Derm: [warm], [dry] Head: [atraumatic], [normocephalic], [symmetric] Eyes: [EOMI], [no lid lag], Mouth: [no lip lesion], [mucus membranes moist] Cardiovascular: [S1S2 reg], [no murmur] Lungs: Decreased breath sounds, no wheezing Abdominal: [soft], [ nontender to palpation], [no guarding], [no appreciable organomegaly] Ext: [no gross muscle atrophy], [erythema and swelling over the medial aspect of the left knee], [no contractures] Neuro: [no focal neuro deficits] Psych: [Alert], [oriented], [appropriate affect] - Labs CBC & Chem 7: 01/25/22 06:29 01/25/22 06:29 Labs: Abnormal Lab Results - Last 24 Hours (Table) 01/24/22 01/24/22 01/24/22 Range/Units 11:52 15:09 21:06 RBC (4.40-5.60) X 10*6/uL Hgb (13.0-17.0) g/dL Hct (39.6-50.0) % Anion Gap (10.00-18.00) mmol/L Est GFR (CKD-EPI)AfAm (60.0-200.0) Est GFR (CKD-EPI)NonAf (60.0-200.0) BUN/Creatinine Ratio (12.00-20.00) Ratio Glucose (70-110) mg/dL POC Glucose (mg/dL) 163 H 129 H 157 H (70-110) mg/dL Calcium (8.7-10.3) mg/dL AST (14-35) U/L ALT (10-49) U/L Total Protein (6.2-8.2) g/dL Albumin (3.8-4.9) g/dL Albumin/Globulin Ratio (1.60-3.17) g/dL 01/25/22 01/25/22 01/25/22 Range/Units 02:00 06:29 06:29 RBC 3.13 L (4.40-5.60) X 10*6/uL Hgb 9.9 L (13.0-17.0) g/dL Hct 30.0 L (39.6-50.0) % Anion Gap 8.90 L (10.00-18.00) mmol/L Est GFR (CKD-EPI)AfAm 55.4 L (60.0-200.0) Est GFR (CKD-EPI)NonAf 47.8 L (60.0-200.0) BUN/Creatinine Ratio 11.93 L (12.00-20.00) Ratio Glucose 152 H (70-110) mg/dL POC Glucose (mg/dL) 168 H (70-110) mg/dL Calcium 8.5 L (8.7-10.3) mg/dL AST 12 L (14-35) U/L ALT 7 L (10-49) U/L Total Protein 5.9 L (6.2-8.2) g/dL Albumin 3.2 L (3.8-4.9) g/dL Albumin/Globulin Ratio 1.19 L (1.60-3.17) g/dL 01/25/22 Range/Units 06:52 RBC (4.40-5.60) X 10*6/uL Hgb (13.0-17.0) g/dL Hct (39.6-50.0) % Anion Gap (10.00-18.00) mmol/L Est GFR (CKD-EPI)AfAm (60.0-200.0) Est GFR (CKD-EPI)NonAf (60.0-200.0) BUN/Creatinine Ratio (12.00-20.00) Ratio Glucose (70-110) mg/dL POC Glucose (mg/dL) 148 H (70-110) mg/dL Calcium (8.7-10.3) mg/dL AST (14-35) U/L ALT (10-49) U/L Total Protein (6.2-8.2) g/dL Albumin (3.8-4.9) g/dL Albumin/Globulin Ratio (1.60-3.17) g/dL Microbiology - Last 24 Hours (Table) 01/24/22 16:13 Gram Stain - Preliminary Leg - Left Wound Culture - Preliminary 01/24/22 16:13 Anaerobic Culture - Preliminary Leg - Left 01/20/22 20:05 Blood Culture - Preliminary Blood No Growth after 96 hours Assessment and Plan Plan: Left lower extremity cellulitis with suspected underlying abscess, wound cultures consistent with staph aureus -Vascular surgery and infectious disease consulted -Status post I&D 01/24/2022 -Continue with IV antibiotics: Infectious disease stopped Vancomycin and started cefazolin CHAPARRO on chronic kidney disease -IV fluids, resolved, serum creatinine down to 1.4 from 1.9 at its peak Hypokalemia Replace as indicated Chronic conditions: A. fib (on Eliquis), type II DM, CHF, hypothyroidism, CAD -Continue with home meds -Holding home Lasix dose at this time -Insulin sliding scale and blood glucose monitoring DVT prophylaxis -Eliquis Staph epi bacteremia likely a contaminant Resolved: Lactic acidosis CODE STATUS: Full Code Discussed with: Patient Anticipated discharge date: 1-[address]: Home
[2022-01-25 11:53] LABS: Glucose,Whole Blood 219 mg/dL (70-110)
[2022-01-25 16:25] LABS: Glucose,Whole Blood 134 mg/dL (70-110)
[2022-01-25 20:51] LABS: Glucose,Whole Blood 257 mg/dL (70-110)
[2022-01-25] MEDS: ATORVASTATIN 40 MG TAB PO SCH (21:12)
[2022-01-26 02:09] LABS: Glucose,Whole Blood 114 mg/dL (70-110)
[2022-01-26 07:05] LABS: Glucose,Whole Blood 147 mg/dL (70-110)
[2022-01-26] MEDS: ONDANSETRON 4 MG/2 ML VIAL IVP PRN (08:04)
--- NOTE | 2022-01-26 08:25 | P.PN ---
Subjective Progress Note Date: 01/25/22 Principal diagnosis: Left lower leg cellulitis and question of abscess Patient is a 76-year-old male with a history of coronary bypass grafting on 07/17/2021 patient did have recurrent problem with the left medial thigh site of vein harvesting, presented to hospital with increasing pain swelling redness to the left medial knee area status post drainage by the vascular surgery on 01/21/2022. The patient is status post surgical drainage of the infected hematoma complicated on 01/24/2022 On today's evaluation that is 01/25/2022, the patient remains to be afebrile, t he patient pain and discomfort to the left medial knee area is currently controlled with pain medication, the patient denies having any chest pain or shortness of breath or cough, the patient denies abdominal pain or diarrhea Objective - Vital Signs Vital signs: Vital Signs Temp 98.4 F 01/25/22 06:49 Pulse 81 01/25/22 06:49 Resp 18 01/25/22 06:49 BP 144/77 01/25/22 06:49 Pulse Ox 91 L 01/25/22 06:49 FiO2 Intake & Output 01/24/22 01/25/22 01/25/22 18:59 06:59 18:59 Intake Total 300 180 Output Total 305 475 Balance -5 -475 180 Intake: IV 300 Oral 180 Output: Urine 300 475 Estimated Blood Loss 5 Other: Voiding Method Toilet Toilet # Voids 3 - Exam GENERAL DESCRIPTION: An elderly male lying in bed in no distress RESPIRATORY SYSTEM: Unlabored breathing , decreased breath sounds at bases HEART: S1 S2 regular rate and rhythm , ABDOMEN: Soft , no tenderness EXTREMITIES: Left medial knee area did have a swelling redness and induration no drainage - Labs CBC & Chem 7: 01/25/22 06:29 01/25/22 06:29 Labs: Abnormal Lab Results - Last 24 Hours (Table) 01/24/22 01/24/22 01/25/22 Range/Units 15:09 21:06 02:00 RBC (4.40-5.60) X 10*6/uL Hgb (13.0-17.0) g/dL Hct (39.6-50.0) % Anion Gap (10.00-18.00) mmol/L Est GFR (CKD-EPI)AfAm (60.0-200.0) Est GFR (CKD-EPI)NonAf (60.0-200.0) BUN/Creatinine Ratio (12.00-20.00) Ratio Glucose (70-110) mg/dL POC Glucose (mg/dL) 129 H 157 H 168 H (70-110) mg/dL Calcium (8.7-10.3) mg/dL AST (14-35) U/L ALT (10-49) U/L Total Protein (6.2-8.2) g/dL Albumin (3.8-4.9) g/dL Albumin/Globulin Ratio (1.60-3.17) g/dL 01/25/22 01/25/22 01/25/22 Range/Units 06:29 06:29 06:52 RBC 3.13 L (4.40-5.60) X 10*6/uL Hgb 9.9 L (13.0-17.0) g/dL Hct 30.0 L (39.6-50.0) % Anion Gap 8.90 L (10.00-18.00) mmol/L Est GFR (CKD-EPI)AfAm 55.4 L (60.0-200.0) Est GFR (CKD-EPI)NonAf 47.8 L (60.0-200.0) BUN/Creatinine Ratio 11.93 L (12.00-20.00) Ratio Glucose 152 H (70-110) mg/dL POC Glucose (mg/dL) 148 H (70-110) mg/dL Calcium 8.5 L (8.7-10.3) mg/dL AST 12 L (14-35) U/L ALT 7 L (10-49) U/L Total Protein 5.9 L (6.2-8.2) g/dL Albumin 3.2 L (3.8-4.9) g/dL Albumin/Globulin Ratio 1.19 L (1.60-3.17) g/dL 01/25/22 Range/Units 11:51 RBC (4.40-5.60) X 10*6/uL Hgb (13.0-17.0) g/dL Hct (39.6-50.0) % Anion Gap (10.00-18.00) mmol/L Est GFR (CKD-EPI)AfAm (60.0-200.0) Est GFR (CKD-EPI)NonAf (60.0-200.0) BUN/Creatinine Ratio (12.00-20.00) Ratio Glucose (70-110) mg/dL POC Glucose (mg/dL) 219 H (70-110) mg/dL Calcium (8.7-10.3) mg/dL AST (14-35) U/L ALT (10-49) U/L Total Protein (6.2-8.2) g/dL Albumin (3.8-4.9) g/dL Albumin/Globulin Ratio (1.60-3.17) g/dL Microbiology - Last 24 Hours (Table) 01/24/22 16:13 Gram Stain - Preliminary Leg - Left Wound Culture - Preliminary 01/24/22 16:13 Anaerobic Culture - Preliminary Leg - Left 01/20/22 20:05 Blood Culture - Preliminary Blood No Growth after 96 hours Assessment and Plan (1) Cellulitis and abscess of left leg Current Visit: Yes Status: Acute Code(s): L03.116 - CELLULITIS OF LEFT LOWER LIMB; L02.416 - CUTANEOUS ABSCESS OF LEFT LOWER LIMB SNOMED Code(s): 718804541 Plan: 1patient presented to hospital with a painful lump to the left medial leg around the knee area and this patient mention site of vein harvest for the coronary artery bypass graft in this patient CT did shows evidence of fluid collection concerning for possible hematoma versus infected hematoma. 2patient is status post vascular surgery evaluation and drainage cultures are currently growing MSSA, patient is status post surgical drainage of infected hematoma on 01/24/2022 with deep cultures pending 3patient to continue with cefazolin 2 g every 8 hours, plan is for PICC line and outpatient IV antibiotic prescription were given to the heel caser Time with Patient: Less than 30
[2022-01-26] MEDS: PANTOPRAZOLE 40 MG TABLET PO SCH (09:04)
[2022-01-26] MEDS: INSULIN ASPART (NovoLOG) 100 UNIT/ML VIAL SQ SCH ×4 (09:05→21:47)
[2022-01-26] MEDS: APIXABAN 5 MG TAB PO SCH ×2 (10:15→21:45)
[2022-01-26] MEDS: ASPIRIN 81 MG PO SCH (10:15)
[2022-01-26] MEDS: METOPROLOL TARTRATE 12.5 MG TAB PO SCH ×2 (10:16→21:47)
--- NOTE | 2022-01-26 11:00 | P.PN ---
Subjective Progress Note Date: 01/26/22 Principal diagnosis: left lower extremity cellulitis Patient is seen and examined as a follow-up. He underwent fluid aspiration with fluid studies with preliminary coming back as MSSA. Infectious disease is following and started him on antibiotics. He is postop day #2 for incision and drainagewith deep tissue cultures. All cultures are currently pending. Infectious disease is following and recommends outpatient IV antibiotics. He states pain in the left lower extremity has improved significantly. He's been afebrile. He denies any shortness of breath chest pain, abdominal pain, nausea or vomiting. Objective - Vital Signs Vital signs: Vital Signs Temp 98.4 F 01/26/22 08:39 Pulse 83 01/26/22 08:39 Resp 17 01/26/22 08:39 BP 158/84 01/26/22 08:39 Pulse Ox 93 L 01/26/22 08:39 FiO2 Intake & Output 01/25/22 01/26/22 01/26/22 18:59 06:59 18:59 Intake Total 360 Output Total 800 900 Balance -440 -900 Intake: Oral 360 Output: Urine 800 900 Other: Voiding Method Toilet Toilet - Exam General appearance: The patient is alert, oriented, appears in no acute distress. HET: Head is normocephalic and atraumatic. Pupils are equal and reactive. Neck: Supple without lymphadenopathy. Trachea midline. No audible carotid bruit. Extremities: Left lower extremity with dressing clean dry and intact. Neurological: No focal deficits. Strength and sensation are grossly intact. - Labs CBC & Chem 7: 01/25/22 06:29 01/25/22 06:29 Labs: Abnormal Lab Results - Last 24 Hours (Table) 01/25/22 01/25/22 01/25/22 Range/Units 06:29 06:29 11:51 RBC 3.13 L (4.40-5.60) X 10*6/uL Hgb 9.9 L (13.0-17.0) g/dL Hct 30.0 L (39.6-50.0) % Anion Gap 8.90 L (10.00-18.00) mmol/L Est GFR (CKD-EPI)AfAm 55.4 L (60.0-200.0) Est GFR (CKD-EPI)NonAf 47.8 L (60.0-200.0) BUN/Creatinine Ratio 11.93 L (12.00-20.00) Ratio Glucose 152 H (70-110) mg/dL POC Glucose (mg/dL) 219 H (70-110) mg/dL Calcium 8.5 L (8.7-10.3) mg/dL AST 12 L (14-35) U/L ALT 7 L (10-49) U/L Total Protein 5.9 L (6.2-8.2) g/dL Albumin 3.2 L (3.8-4.9) g/dL Albumin/Globulin Ratio 1.19 L (1.60-3.17) g/dL 01/25/22 01/25/22 01/26/22 Range/Units 16:24 20:49 02:08 RBC (4.40-5.60) X 10*6/uL Hgb (13.0-17.0) g/dL Hct (39.6-50.0) % Anion Gap (10.00-18.00) mmol/L Est GFR (CKD-EPI)AfAm (60.0-200.0) Est GFR (CKD-EPI)NonAf (60.0-200.0) BUN/Creatinine Ratio (12.00-20.00) Ratio Glucose (70-110) mg/dL POC Glucose (mg/dL) 134 H 257 H 114 H (70-110) mg/dL Calcium (8.7-10.3) mg/dL AST (14-35) U/L ALT (10-49) U/L Total Protein (6.2-8.2) g/dL Albumin (3.8-4.9) g/dL Albumin/Globulin Ratio (1.60-3.17) g/dL 01/26/22 Range/Units 07:03 RBC (4.40-5.60) X 10*6/uL Hgb (13.0-17.0) g/dL Hct (39.6-50.0) % Anion Gap (10.00-18.00) mmol/L Est GFR (CKD-EPI)AfAm (60.0-200.0) Est GFR (CKD-EPI)NonAf (60.0-200.0) BUN/Creatinine Ratio (12.00-20.00) Ratio Glucose (70-110) mg/dL POC Glucose (mg/dL) 147 H (70-110) mg/dL Calcium (8.7-10.3) mg/dL AST (14-35) U/L ALT (10-49) U/L Total Protein (6.2-8.2) g/dL Albumin (3.8-4.9) g/dL Albumin/Globulin Ratio (1.60-3.17) g/dL Microbiology - Last 24 Hours (Table) 01/20/22 20:05 Blood Culture - Preliminary Blood No Growth after 120 hours 01/21/22 18:45 Anaerobic Culture - Final Knee - Left 01/24/22 16:13 Gram Stain - Preliminary Leg - Left Wound Culture - Preliminary Assessment and Plan Assessment: 1. Left medial knee fluid collection, post incision and drainage 2. Fluid culture positive for staph aureus 3. Vein harvest July 2021 4. Atrial fibrillation on anticoagulation Plan: 1. Continue symptomatic and supportive care 2. Continue IV antibiotics recommended by infectious disease 3. Daily dressing change with iodoform packing, dressed with 4 x 4 and Kerlix wrap 4. Patient will need outpatient wound care Thank you for this consultation, we will sign off at this time. The impression and plan of care has been dictated as directed. Dr. Nava I performed a history and examination of this patient, discussed the same with the dictator. I agree with the dictator's note ,documented as a scribe. Any additional findings or plans will be noted.
[2022-01-26 11:38] LABS: Glucose,Whole Blood 216 mg/dL (70-110)
[2022-01-26] MEDS: SODIUM CHLORIDE 0.9% 1,000 ML IV SCH (13:01)
--- NOTE | 2022-01-26 15:29 | P.PN ---
Subjective Progress Note Date: 01/26/22 Principal diagnosis: Left knee cellulitis Patient was seen and examined. No acute events overnight. Patient reports slight improvement in his left knee redness and swelling. He denies any chest pain, shortness breath or palpitations. No nausea or vomiting. No fever or chills. Underwent I&D POD 2. Objective - Vital Signs Vital signs: Vital Signs Temp 98.2 F 01/26/22 13:22 Pulse 65 01/26/22 13:22 Resp 22 01/26/22 13:22 BP 153/80 01/26/22 13:22 Pulse Ox 94 L 01/26/22 13:22 FiO2 Intake & Output 01/25/22 01/26/22 01/26/22 18:59 06:59 18:59 Intake Total 360 Output Total 800 900 Balance -440 -900 Intake: Oral 360 Output: Urine 800 900 Other: Voiding Method Toilet Toilet Toilet - Exam General: [non toxic], [no distress], [appears at stated age] Derm: [warm], [dry] Head: [atraumatic], [normocephalic], [symmetric] Eyes: [EOMI], [no lid lag], [anicteric sclera] Mouth: [no lip lesion], [mucus membranes moist] Cardiovascular: [S1S2 reg], [no murmur] Lungs: [CTA bilateral], [no rhonchi, no rales] , [no accessory muscle use] Abdominal: [soft], [ nontender to palpation], [no guarding], [no appreciable organomegaly] Ext: [no gross muscle atrophy], [erythema and swelling over the medial aspect of the left knee], [no contractures] Neuro: [no focal neuro deficits] Psych: [Alert], [oriented], [appropriate affect] - Labs CBC & Chem 7: 01/25/22 06:29 01/25/22 06:29 Labs: Abnormal Lab Results - Last 24 Hours (Table) 01/25/22 01/25/22 01/26/22 Range/Units 16:24 20:49 02:08 POC Glucose (mg/dL) 134 H 257 H 114 H (70-110) mg/dL 01/26/22 01/26/22 Range/Units 07:03 11:36 POC Glucose (mg/dL) 147 H 216 H (70-110) mg/dL Microbiology - Last 24 Hours (Table) 01/20/22 20:05 Blood Culture - Preliminary Blood No Growth after 120 hours 01/21/22 18:45 Anaerobic Culture - Final Knee - Left Assessment and Plan Assessment: Assessment/plan Left lower extremity cellulitis with suspected underlying abscess -Vascular surgery and infectious disease consulted -Underwent I&D 01/24, Wound cultures pending -Continue with IV antibiotics: Cefazolin -Involved the area marked to track progress Normocytic anemia -Trend CBC Chronic conditions: A. fib, type II DM, CHF, hypothyroidism, CAD, CKD -Continue with home meds -Holding home Lasix dose at this time -Insulin sliding scale and blood glucose monitoring DVT prophylaxis -Eliquis Resolved: Lactic acidosis, CHAPARRO, Hypokalemia The patient is admitted with an anticipated greater than 2 midnight stay for evaluation of LLE cellulitis CODE STATUS: Full Code Discussed with: Patient Anticipated discharge date: 1-[address]: SNF Plans for SNF. Insurance authorization pending. Medically stable. Needs IV antibiotics.
--- NOTE | 2022-01-26 15:59 | IR ---
PICC LINE PLACEMENT: HISTORY: Infection requiring long-term antibiotic therapy PROCEDURE: Ultrasound and fluoroscopic guidance of PICC line placement. COMPLICATIONS: None ANESTHESIA: 1. 1% Lidocaine locally. FINDINGS/TECHNIQUE: The procedure was explained to the patient. The risks, complications, benefits and alternatives were discussed and any questions were answered. Informed consent was obtained. The patient was placed supine on the fluoroscopic table and prepped and draped in the usual sterile fash ion. Utilizing a 21 gauge needle and sonographic and fluoroscopic guidance, access in the left basi lic vein was achieved and there is placement of a 0.018 guidewire. The vein is patent. A 4-F sheath was placed over the guidewire. The guidewire and dilator were removed and a 4-F. PICC line was plac ed through the sheath with the tip at the level of the SVC. The sheath was removed, the catheter was flushed and sutured into position. The patient was stable throughout the procedure and remained sta ble upon discharge from the Department of Radiology. The vein puncture was patent under ultrasound. A mayers scale image was obtained to document patency of the vein punctured. All elements of the maximal barrier technique were utilized. FLUOROSCOPY TIME: 0.1 minutes and one images submitted IMPRESSION: Successful PICC line placement under ultrasound and fluoroscopic guidance.
[2022-01-26 16:25] LABS: Glucose,Whole Blood 175 mg/dL (70-110)
[2022-01-26 21:00] LABS: Glucose,Whole Blood 165 mg/dL (70-110)
[2022-01-26] MEDS: ATORVASTATIN 40 MG TAB PO SCH (21:45)
[2022-01-27 02:44] LABS: Glucose,Whole Blood 184 mg/dL (70-110)
[2022-01-27 07:12] LABS: Glucose,Whole Blood 146 mg/dL (70-110)
[2022-01-27] MEDS: APIXABAN 5 MG TAB PO SCH (07:41)
[2022-01-27] MEDS: METOPROLOL TARTRATE 12.5 MG TAB PO SCH (07:41)
[2022-01-27] MEDS: INSULIN ASPART (NovoLOG) 100 UNIT/ML VIAL SQ SCH ×2 (07:41→13:49)
[2022-01-27] MEDS: PANTOPRAZOLE 40 MG TABLET PO SCH (07:41)
[2022-01-27] MEDS: ASPIRIN 81 MG PO SCH (07:41)
[2022-01-27 07:47] VITALS: BP 110/65; PULSE 62; RESP 17; TEMP 97.6
--- NOTE | 2022-01-27 10:54 | P.DS ---
Providers Date of admission: 01/20/22 21:32 Expected date of discharge: 01/27/22 Attending physician: Jorge Alberto Martins MD Consults: 01/20/22 21:21 Consult Physician Urgent Consulting Provider: Braydon Amaya Consult Reason/Comments: Cellulitis and abscess of left lower extremity Do you want consulting provider notified?: Yes 01/21/22 03:35 Consult Physician Urgent Consulting Provider: Danni Roca Consult Reason/Comments: Cellulitis Do you want consulting provider notified?: Yes Primary care physician: [facility] Course: The patient is a 76-year-old male with a PMH of coronary artery disease status post CABG in 07/2021 with saphenous vein grafting, A. fib on Eliquis, type II DM, CHF, hypertension, who presents to the emergency room with complaints of lef t leg pain and redness. The patient reports that he has had persistent issues with the left vein grafting site on the medial aspect of the left knee. He reports having seen multiple providers including an infectious disease doctor and having completed multiple courses of antibiotics. Reports however that over the past 1 week, his symptoms seem to have worsened. He denies fever or chills at home. Also denies experiencing chest discomfort, shortness of breath, nausea, vomiting, abdominal pain, diarrhea. Laboratory evaluation in the emergency room was remarkable for lactic acid 2.5, BUN 34, creatinine 1.95, glucose 161. Patient was initially started on clindamycin which was switched to vancomycin. Infectious disease was consulted and deep wound culture was collected. Wound culture grew staph aureus. Infectious disease was consulted and recommended IV antibiotics for 3 weeks cefazolin 2 g IV every 8 hours. Patient was subsequently discharged to [facility] continue antibiotic therapy. General: [non toxic], [no distress], [appears at stated age] Derm: [warm], [dry] Head: [atraumatic], [normocephalic], [symmetric] Eyes: [EOMI], [no lid lag], [anicteric sclera] Mouth: [no lip lesion], [mucus membranes moist] Cardiovascular: [S1S2 reg], [no murmur] Lungs: [CTA bilateral], [no rhonchi, no rales] , [no accessory muscle use] Abdominal: [soft], [ nontender to palpation], [no guarding], [no appreciable organomegaly] Ext: [no gross muscle atrophy], [erythema and swelling over the medial aspect of the left knee], [no contractures] Neuro: [no focal neuro deficits] Psych: [Alert], [oriented], [appropriate affect] Discharge diagnosis: Left lower extremity cellulitis with suspected underlying abscess Normocytic anemia Chronic conditions: A. fib, type II DM, CHF, hypothyroidism, CAD, CKD Resolved: Lactic acidosis, CHAPARRO, Hypokalemia This complex discharge took about 45 minutes to complete. Pertinent Studies: Tib-fib x-ray Lower extremity CT Procedures: PICC line Patient Condition at Discharge: Stable Plan - Discharge Summary New Discharge Prescriptions: New ceFAZolin [Kefzol] 2 gm IVP Q8HR 21 Days ml Continue Aspirin 81 mg PO DAILY #30 chewable Furosemide [Lasix] 40 mg PO DAILY Ondansetron Odt [Zofran ODT] 4 mg PO Q12HR PRN #20 tab PRN Reason: Nausea Metoprolol Tartrate [Lopressor] 12.5 mg PO BID metFORMIN HCL [Glucophage] 1,000 mg PO BID Apixaban [Eliquis] 5 mg PO BID #60 tab Pantoprazole [Protonix] 40 mg PO AC-BRKFST #30 tab Atorvastatin Calcium [Lipitor] 40 mg PO HS Discontinued Sulfamethox-Tmp 800-160Mg [Bactrim DS 800-160 mg] 1 tab PO Q12HR #28 tab Cephalexin [Keflex] 500 mg PO QID 10 Days #40 cap Discharge Medication List Aspirin 81 mg PO DAILY #30 chewable 02/06/18 [Rx] metFORMIN HCL [Glucophage] 1,000 mg PO BID 07/16/21 [History] Apixaban [Eliquis] 5 mg PO BID #60 tab 08/02/21 [Rx] Pantoprazole [Protonix] 40 mg PO AC-BRKFST #30 tab 08/02/21 [Rx] Furosemide [Lasix] 40 mg PO DAILY 08/04/21 [History] Ondansetron Odt [Zofran ODT] 4 mg PO Q12HR PRN #20 tab 09/08/21 [Rx] Atorvastatin Calcium [Lipitor] 40 mg PO HS 01/20/22 [History] Metoprolol Tartrate [Lopressor] 12.5 mg PO BID 01/20/22 [History] ceFAZolin [Kefzol] 2 gm IVP Q8HR 21 Days ml 01/27/22 [Rx] Follow up Appointment(s)/Referral(s): Braydon Amaya DO [STAFF PHYSICIAN] - 2 Weeks Danni Roca MD [STAFF PHYSICIAN] - 1 Week [facility] [Primary Care Provider] - 1-2 days Activity/Diet/Wound Care/Special Instructions: Aquacel silver packing of the wound change every 48 hour, follow-up with Dr. May brown in the wound care center next week, call [phone] to make an appointment Discharge Disposition: TRANSFER TO SNF/ECF
[2022-01-27 11:18] LABS: Glucose,Whole Blood 152 mg/dL (70-110)
== END 2022-01-27 12:33 | DRG 863 ==
LOC: EC 16:59 → 4SSUR 21:32
PROVIDERS: ADMIT Internal Medicine; ATTEND Internal Medicine
PROC: 0J9P0ZX Drainage of Left Lower Leg Subcutaneous Tissue and Fascia, Open Approach, Diagnostic (ICD-10-PCS; principal; 2022-01-24 07:30)
PROC: 02HV33Z Insertion of Infusion Device into Superior Vena Cava, Percutaneous Approach (ICD-10-PCS; 2022-01-26)
PROC: B548ZZA Ultrasonography of Superior Vena Cava, Guidance (ICD-10-PCS; 2022-01-26)
PROC: B5181ZA Fluoroscopy of Superior Vena Cava using Low Osmolar Contrast, Guidance (ICD-10-PCS; 2022-01-26)
DX: T81.41XA Infection following a procedure, superficial incisional surgical site, initial encounter (principal); L76.34 Postprocedural seroma of skin and subcutaneous tissue following other procedure; E87.2 Acidosis; I13.0 Hypertensive heart and chronic kidney disease with heart failure and stage 1 through stage 4 chronic kidney disease, or unspecified chronic kidney disease; I42.9 Cardiomyopathy, unspecified; I50.22 Chronic systolic (congestive) heart failure; L02.416 Cutaneous abscess of left lower limb; L03.116 Cellulitis of left lower limb; N17.9 Acute kidney failure, unspecified; E11.22 Type 2 diabetes mellitus with diabetic chronic kidney disease; E11.649 Type 2 diabetes mellitus with hypoglycemia without coma; B95.62 Methicillin resistant Staphylococcus aureus infection as the cause of diseases classified elsewhere; D64.9 Anemia, unspecified; E03.9 Hypothyroidism, unspecified; Z79.890 Hormone replacement therapy; Y84.8 Other medical procedures as the cause of abnormal reaction of the patient, or of later complication, without mention of misadventure at the time of the procedure; N18.9 Chronic kidney disease, unspecified; E78.5 Hyperlipidemia, unspecified; E87.6 Hypokalemia; I25.10 Atherosclerotic heart disease of native coronary artery without angina pectoris; I25.2 Old myocardial infarction; I48.91 Unspecified atrial fibrillation; Z79.01 Long term (current) use of anticoagulants; Z79.2 Long term (current) use of antibiotics; Z79.82 Long term (current) use of aspirin; Z79.84 Long term (current) use of oral hypoglycemic drugs; Z79.899 Other long term (current) drug therapy; Z82.49 Family history of ischemic heart disease and other diseases of the circulatory system; Z83.3 Family history of diabetes mellitus; Z86.14 Personal history of Methicillin resistant Staphylococcus aureus infection; Z95.1 Presence of aortocoronary bypass graft; Z95.2 Presence of prosthetic heart valve
CPT/HCPCS: 36415; 36573; 80048; 80053; 82565; 83605; 85025; 87040; 87070; 87075; 87077; 87186; 87205; 96365; 96366; 99285

== ENCOUNTER → 2022-06-27 | Outpatient (CLI) | payer OTHER ==
--- NOTE | 2022-06-27 18:39 | MR ---
EXAMINATION TYPE: MR iac wo/w con DATE OF EXAM: 06/27/2022 COMPARISON: CT brain August 04, 2021 HISTORY: SENSORINEURAL HEARING LOSS ODALYS TECHNIQUE: Multiplanar, multisequence images of the brain and brainstem is performed without and with IV contras t, utilizing 8 mL intravenous Gadavist . Acoustic nerve disorder protocol. FINDINGS: Diffusion weighted images demonstrate no evidence of a recent infarct or other diffusion ab normality. There is mild to moderate ventricular and sulcal prominence. Tiny old lacunar infarct lef t coronal radiata axial image 18 redemonstrated. No significant white matter changes Midline structures demonstrate normal morphology. The craniocervical junction appears within normal limits. Post contrast images demonstrate no abnormal enhancement. The dural venous sinuses appear pa tent. Mild mucosal thickening involving the ethmoid sinuses bilaterally. Mild to moderate mucosal thi ckening in the right maxillary sinus. Globes are intact bilaterally. No suspicious increase fluid signal in the bilateral mastoid air cells. The vestibulocochlear complex es are symmetric and felt within normal limits. There is no abnormal enhancing cerebellopontine angle mass identified bilaterally. IMPRESSION: 1. Source of patient's bilateral sensorineural hearing loss is not identified. 2. There is mild to moderate diffuse cerebral atrophy and chronic paranasal sinus disease noted.
== END | disposition home or self-care (01) ==
LOC: RADMRIMAIN 06:57
PROVIDERS: ATTEND Otolaryngology
DX: H90.3 Sensorineural hearing loss, bilateral (principal); G31.9 Degenerative disease of nervous system, unspecified; J32.8 Other chronic sinusitis
CPT/HCPCS: 70553; A9585

== ENCOUNTER 2022-11-20 23:15 | Emergency (ER) | payer OTHER ==
[2022-11-20 23:41] VITALS: RESP 18; TEMP 97.9
[2022-11-21 00:35] LABS: Glucose,Whole Blood 138 mg/dL (70-110)
--- NOTE | 2022-11-21 00:48 | ED ---
Recheck HPI - General Source: patient, RN notes reviewed Mode of arrival: ambulatory Limitations: no limitations - History of Present Illness MD Complaint: other (Hyperglycemia) <Elise Santo - Last Filed: 11/21/22 00:48> <Can Archuleta - Last Filed: 11/21/22 05:09> - General Chief Complaint: Recheck/Abnormal Lab/Rx Stated Complaint: Hyperglycemia Time Seen by Provider: 11/21/22 00:35 - History of Present Illness Initial Comments: This is a 77-year-old male who presents to the emergency department for concerns of elevated blood sugar. He is currently being treated with metformin for diabetes mellitus type 2. He is not able to check his blood sugar at home, as he is still waiting for a new glucometer from the [place]. However, he is concerned that his sugar has been very high, as he feels strange like he typically does whenever it is elevated. (Elise Santo) This is a 77-year-old male with a past medical history including diabetes as w ell as hypertension presented to the emergency department to check for high blood sugar. The patient stated that his blood glucose meter was broken at home and he did contact the [place] for replacement but he still waiting. The patient stated that he has not checked his blood sugar and "very long time" and stated he came to the emergency department today to have his blood sugar checked. The patient denied any complaints at this time including any nausea, vomiting, fevers and chills. The patient was resting in bed comfortably. (Can Archuleta) - Related Data Home Medications Medication Instructions Recorded Confirmed metFORMIN HCL [Glucophage] 1,000 mg PO BID 07/16/21 01/20/22 Furosemide [Lasix] 40 mg PO DAILY 08/04/21 01/20/22 Atorvastatin Calcium [Lipitor] 40 mg PO HS 01/20/22 01/20/22 Metoprolol Tartrate [Lopressor] 12.5 mg PO BID 01/20/22 01/20/22 Previous Rx's Medication Instructions Recorded Aspirin 81 mg PO DAILY #30 chewable 02/06/18 Apixaban [Eliquis] 5 mg PO BID #60 tab 08/02/21 Pantoprazole [Protonix] 40 mg PO AC-BRKFST #30 tab 08/02/21 Ondansetron Odt [Zofran ODT] 4 mg PO Q12HR PRN #20 tab 09/08/21 ceFAZolin [Kefzol] 2 gm IVP Q8HR 21 Days ml 01/27/22 Erythromycin Ophth Oint [Romycin 1 applic LEFT EYE Q4H 5 Days #1 gm 08/26/22 Ophth Oint] Allergies Allergy/AdvReac Type Severity Reaction Status Date / Time No Known Allergies Allergy Verified 11/20/22 23:41 Review of Systems ROS Other: All systems not noted in ROS Statement are negative. <Elise Santo - Last Filed: 11/21/22 00:48> ROS Other: All systems not noted in ROS Statement are negative. <Can Archuleta - Last Filed: 11/21/22 05:09> ROS Statement: Those systems with pertinent positive or pertinent negative responses have been documented in the HPI. Past Medical History Past Medical History: Coronary Artery Disease (CAD), Diabetes Mellitus, Hyperlipidemia, Hypertension, Myocardial Infarction ([place]) Additional Past Medical History / Comment(s): Pt recently admitted to [facility] on 07/16/21 with NSTEMI, new cardiomyopathy, acute systolic chf, 1st degree heart block/paroxysmal 2 degree and 3rd degree heart block, hypotension. Pt had cardiac cath/DELVIS/ CABG 3 vessel with aortic valve replacement. Last Myocardial Infarction Date:: 07/16/21 History of Any Multi-Drug Resistant Organisms: None Reported Past Surgical History: Cardiac Valve Replacement, Heart Catheterization With Stent, Hernia Repair Additional Past Surgical History / Comment(s): Right knee surgery CUT OUT CARTILAGE, hernia repair Past Anesthesia/Blood Transfusion Reactions: No Reported Reaction Date of Last Stent Placement:: 07/16/21 Past Psychological History: No Psychological Hx Reported Smoking Status: Never smoker Past Alcohol Use History: None Reported Past Drug Use History: None Reported - Past Family History Father Additional Family Medical History / Comment(s): AT AGE 84-CANCER OF LARNYX (SMOKER), CARDIAC PROBLEMS Mother Family Medical History: Diabetes Mellitus Additional Family Medical History / Comment(s): AT AGE 83- HAD A PITUITARY TUMOR REMOVED HAD SON CRISIS Sister(s) Family Medical History: Coronary Artery Disease (CAD) Additional Family Medical History / Comment(s): had CABG in her 70s <Elise Santo - Last Filed: 11/21/22 00:48> General Exam Limitations: no limitations <Elise Santo - Last Filed: 11/21/22 00:48> Limitations: no limitations General appearance: alert, in no apparent distress Head exam: Present: atraumatic, normocephalic, normal inspection Eye exam: Present: normal appearance, PERRL Pupils: Present: normal accommodation ENT exam: Present: normal exam, normal oropharynx, mucous membranes moist Neck exam: Present: normal inspection, full ROM Respiratory exam: Present: normal lung sounds bilaterally Cardiovascular Exam: Present: regular rate, normal rhythm, normal heart sounds GI/Abdominal exam: Present: soft, normal bowel sounds Extremities exam: Present: normal inspection, full ROM Back exam: Present: normal inspection, full ROM Neurological exam: Present: alert, oriented X3, CN II-XII intact Psychiatric exam: Present: normal affect, normal mood Skin exam: Present: warm, dry <Can Archuleta - Last Filed: 11/21/22 05:09> - General Exam Comments Initial Comments: Visual Physical Exam Vital signs reviewed General: Well-appearing, nontoxic, no acute distress. Head: Normocephalic, atraumatic Eyes: PERRLA, EOMI ENT: Airway patent Chest: Nonlabored breathing Skin: No visual rash, normal skin tone Neuro: Alert and oriented 3 Musculoskeletal: No gross abnormalities (Elise Santo) Course Vital Signs 11/20/22 23:38 Temperature 97.9 F Pulse Rate 63 Respiratory 18 Rate Blood Pressure 158/86 O2 Sat by Pulse 99 Oximetry Medical Decision Making - Lab Data Result diagrams: 11/21/22 00:35 11/21/22 00:35 <Can Archuleta - Last Filed: 11/21/22 05:09> - Medical Decision Making Was pt. sent in by a medical professional or institution (, PA, FILAMENT TESTER, urgent care, hospital, or intermediate...) When possible be specific @ -No Did you speak to anyone other than the patient for history (EMS, parent, family, police, friend...)? What history was obtained from this source @ -No Did you review nursing and triage notes (agree or disagree)? Why? @ -I reviewed and agree with nursing and triage notes Were old charts reviewed (outside hosp., previous admission, EMS record, old EKG, old radiological studies, urgent care reports/EKG's, intermediate records)? Report findings @ -No old charts were reviewed Differential Diagnosis (chest pain, altered mental status, abdominal pain women, abdominal pain men, vaginal bleeding, weakness, fever, dyspnea, syncope, headache, dizziness, GI bleed, back pain, seizure, CVA, palpatations, mental health)? @ -hyperglycemia, normal physical exam, electrolyte abnormality EKG interpreted by me (3pts min.). @ -None X-rays interpreted by me (1pt min.). @ -None done CT interpreted by me (1pt min.). @ -None done U/S interpreted by me (1pt. min.). @ -None done What testing was considered but not performed or refused? (CT, X-rays, U/S, labs)? Why? @ -None What meds were considered but not given or refused? Why? @ -None Did you discuss the management of the patient with other professionals (professionals i.e. , PA, FILAMENT TESTER, lab, RT, psych nurse, social work specialist, automation qtp tester, teacher, space operations officer, rn case manager)? Give summary @ -No Was smoking cessation discussed for >3mins.? @ -No Was critical care preformed (if so, how long)? @ -No Were there social determinants of health that impacted care today? How? (Homelessness, low income, unemployed, alcoholism, drug addiction, transportation, low edu. Level, literacy, decrease access to med. care, custodial, rehab)? @ -No Was there de-escalation of care discussed even if they declined (Discuss DNR or withdrawal of care, Hospice)? DNR status @ -No What co-morbidities impacted this encounter? (DM, HTN, Smoking, COPD, CAD, Cancer, CVA, ARF, Chemo, Hep., AIDS, mental health diagnosis, sleep apnea, morbid obesity)? @ -Hypertension, diabetes Was patient admitted / discharged? Hospital course, mention meds given and route, prescriptions, significant lab abnormalities, going to OR and other pertinent info. @ -The patient was seen and evaluated emergency department. Physical exam, the patient was resting in bed without any acute distress. Vital signs admission were stable. Due to the nature the patient's complaints, laboratory workup was initiated in triage and all laboratory workup was negative. The patient's blood glucose was 138 on initial arrival and was 140 on reevaluation when he was placed into the room. The patient continued to remain asymptomatic and was stable for discharge home. The patient was advised to follow-up with his primary care physician for further workup and evaluation and to report back to the emergency department if he had worsening symptoms including nausea, vomiting and lightheadedness. The patient was agreeable to this and all his questions were answered. The patient was discharged home in stable condition. Undiagnosed new problem with uncertain prognosis? @ -No Drug Therapy requiring intensive monitoring for toxicity (Heparin, Nitro, Insulin, Cardizem)? @ -No Were any procedures done? @ -No Diagnosis/symptom? @ -Normal physical exam Acute, or Chronic, or Acute on Chronic? @ -Acute Uncomplicated (without systemic symptoms) or Complicated (systemic symptoms)? @ -Uncomplicated Side effects of treatment? @ -No Exacerbation, Progression, or Severe Exacerbation? @ -No Poses a threat to life or bodily function? How? (Chest pain, [place], [place], pneumonia, PE, COPD, DKA, ARF, appy, cholecystitis, CVA, Diverticulitis, Homicidal, Suicidal, threat to staff... and all critical care pts) @ -No (Can Archuleta) - Lab Data Lab Results 11/21/22 11/21/22 11/21/22 Range/Units 00:32 00:35 00:35 WBC 5.0 (3.8-10.6) k/uL RBC 3.97 L (4.30-5.90) m/uL Hgb 12.7 L (13.0-17.5) gm/dL Hct 37.9 L (39.0-53.0) % MCV 95.3 (80.0-100.0) fL MCH 31.9 (25.0-35.0) pg MCHC 33.4 (31.0-37.0) g/dL RDW 13.1 (11.5-15.5) % Plt Count 167 (150-450) k/uL MPV 8.5 Neutrophils % 52 % Lymphocytes % 28 % Monocytes % 10 % Eosinophils % 5 % Basophils % 1 % Neutrophils # 2.6 (1.3-7.7) k/uL Lymphocytes # 1.4 (1.0-4.8) k/uL Monocytes # 0.5 (0-1.0) k/uL Eosinophils # 0.3 (0-0.7) k/uL Basophils # 0.1 (0-0.2) k/uL VBG pH (7.31-7.41) VBG pCO2 (37-51) mmHg VBG HCO3 (24-28) mmol/L Sodium 137 (137-145) mmol/L Potassium 3.8 (3.5-5.1) mmol/L Chloride 98 (98-107) mmol/L Carbon Dioxide 28 (22-30) mmol/L Anion Gap 11 mmol/L BUN 27 H (9-20) mg/dL Creatinine 1.38 H (0.66-1.25) mg/dL Est GFR (CKD-EPI)AfAm 56 (>60 ml/min/1.73 sqM) Est GFR (CKD-EPI)NonAf 48 (>60 ml/min/1.73 sqM) Glucose 135 H (74-99) mg/dL POC Glucose (mg/dL) 138 H (70-110) mg/dL POC Glu [employer] Arturo Mota Plasma Lactic Acid Loco (0.7-2.0) mmol/L Calcium 9.3 (8.4-10.2) mg/dL Phosphorus 3.6 (2.5-4.5) mg/dL Magnesium 1.9 (1.6-2.3) mg/dL Total Bilirubin 0.7 (0.2-1.3) mg/dL AST 22 (17-59) U/L ALT 19 (4-49) U/L Alkaline Phosphatase 58 (38-126) U/L Total Protein 7.3 (6.3-8.2) g/dL Albumin 4.5 (3.5-5.0) g/dL Urine Color Urine Appearance (Clear) Urine pH (5.0-8.0) Ur Specific [place] (1.001-1.035) Urine Protein (Negative) Urine Glucose (UA) (Negative) Urine Ketones (Negative) Urine Blood (Negative) Urine Nitrite (Negative) Urine Bilirubin (Negative) Urine Urobilinogen (<2.0) mg/dL Ur Leukocyte Esterase (Negative) Acetone, Qual Negative (Negative) 11/21/22 11/21/22 11/21/22 Range/Units 00:35 00:35 02:35 WBC (3.8-10.6) k/uL RBC (4.30-5.90) m/uL Hgb (13.0-17.5) gm/dL Hct (39.0-53.0) % MCV (80.0-100.0) fL MCH (25.0-35.0) pg MCHC (31.0-37.0) g/dL RDW (11.5-15.5) % Plt Count (150-450) k/uL MPV Neutrophils % % Lymphocytes % % Monocytes % % Eosinophils % % Basophils % % Neutrophils # (1.3-7.7) k/uL Lymphocytes # (1.0-4.8) k/uL Monocytes # (0-1.0) k/uL Eosinophils # (0-0.7) k/uL Basophils # (0-0.2) k/uL VBG pH 7.37 (7.31-7.41) VBG pCO2 50 (37-51) mmHg VBG HCO3 29 H (24-28) mmol/L Sodium (137-145) mmol/L Potassium (3.5-5.1) mmol/L Chloride (98-107) mmol/L Carbon Dioxide (22-30) mmol/L Anion Gap mmol/L BUN (9-20) mg/dL Creatinine (0.66-1.25) mg/dL Est GFR (CKD-EPI)AfAm (>60 ml/min/1.73 sqM) Est GFR (CKD-EPI)NonAf (>60 ml/min/1.73 sqM) Glucose (74-99) mg/dL POC Glucose (mg/dL) (70-110) mg/dL POC Glu [employer] ID Plasma Lactic Acid Loco 1.3 (0.7-2.0) mmol/L Calcium (8.4-10.2) mg/dL Phosphorus (2.5-4.5) mg/dL Magnesium (1.6-2.3) mg/dL Total Bilirubin (0.2-1.3) mg/dL AST (17-59) U/L ALT (4-49) U/L Alkaline Phosphatase (38-126) U/L Total Protein (6.3-8.2) g/dL Albumin (3.5-5.0) g/dL Urine Color Light Yellow Urine Appearance Clear (Clear) Urine pH 5.5 (5.0-8.0) Ur Specific [place] 1.009 (1.001-1.035) Urine Protein Negative (Negative) Urine Glucose (UA) Negative (Negative) Urine Ketones Negative (Negative) Urine Blood Negative (Negative) Urine Nitrite Negative (Negative) Urine Bilirubin Negative (Negative) Urine Urobilinogen <2.0 (<2.0) mg/dL Ur Leukocyte Esterase Negative (Negative) Acetone, Qual (Negative) Disposition <Elise Santo - Last Filed: 11/21/22 00:48> Is patient prescribed a controlled substance at d/c from ED?: No Time of Disposition: 05:05 <Can Archuleta - Last Filed: 11/21/22 05:09> Clinical Impression: Normal exam Disposition: HOME SELF-CARE Condition: Stable Instructions (If sedation given, give patient instructions): Normal Exam (ED) Referrals: [facility],Clinic [Primary Care Provider] - 1-2 days
[2022-11-21 00:53] LABS: Basophils # (A) 0.1 k/uL (0-0.2); Basophils % (A) 1 %; Eosinophils # (A) 0.3 k/uL (0-0.7); Eosinophils % (A) 5 %; HCT 37.9 % (39.0-53.0); HGB 12.7 gm/dL (13.0-17.5); Lymphocytes # (A) 1.4 k/uL (1.0-4.8); Lymphocytes % (A) 28 %; MCH 31.9 pg (25.0-35.0); MCHC 33.4 g/dL (31.0-37.0); MCV 95.3 fL (80.0-100.0); Mean Platelet Volume 8.5; Monocytes # (A) 0.5 k/uL (0-1.0); Monocytes % (A) 10 %; Neutrophils # (A) 2.6 k/uL (1.3-7.7); Neutrophils % (A) 52 %; Platelet Count 167 k/uL (150-450); RBC 3.97 m/uL (4.30-5.90); RDW 13.1 % (11.5-15.5)
[2022-11-21 01:06] LABS: ALT 19 U/L (4-49); AST 22 U/L (17-59); African American GFR (CKD) 56 (>60 ml/min/1.73 sqM); Albumin 4.5 g/dL (3.5-5.0); Alkaline Phosphatase 58 U/L (38-126); Anion Gap 11 mmol/L; Blood Urea Nitrogen 27 mg/dL (9-20); Calcium 9.3 mg/dL (8.4-10.2); Carbon Dioxide 28 mmol/L (22-30); Chloride 98 mmol/L (98-107); Glucose 135 mg/dL (74-99); Magnesium 1.9 mg/dL (1.6-2.3); Non-African American GFR(CKD) 48 (>60 ml/min/1.73 sqM); Phosphorus 3.6 mg/dL (2.5-4.5); Potassium 3.8 mmol/L (3.5-5.1); Sodium 137 mmol/L (137-145); Total Bilirubin 0.7 mg/dL (0.2-1.3); Total Protein 7.3 g/dL (6.3-8.2)
[2022-11-21 01:35] LABS: VBG PH 7.37 (7.31-7.41)
[2022-11-21 03:03] LABS: Appearance,Urine Clear (Clear); Bilirubin,Urine Negative (Negative); Blood,Urine Negative (Negative); Color,Urine Light Yellow; Glucose,Urine (UA) Negative (Negative); Ketones,Urine Negative (Negative); Leukocyte Esterase,Urine Negative (Negative); Nitrite,Urine Negative (Negative); PH, Urine 5.5 (5.0-8.0); Protein,Urine Negative (Negative); Specific Gravity,Urine 1.009 (1.001-1.035); Urobilinogen,Urine <2.0 mg/dL (<2.0)
[2022-11-21 05:06] LABS: Glucose,Whole Blood 140 mg/dL (70-110)
[2022-11-21 05:11] VITALS: BP 146/63; PULSE 64
== END 2022-11-21 05:22 | disposition home or self-care (01) ==
LOC: EC 23:15
DX: Z00.00 Encounter for general adult medical examination without abnormal findings (principal); E11.9 Type 2 diabetes mellitus without complications; I10 Essential (primary) hypertension; I25.10 Atherosclerotic heart disease of native coronary artery without angina pectoris; I25.2 Old myocardial infarction; E78.5 Hyperlipidemia, unspecified; Z79.84 Long term (current) use of oral hypoglycemic drugs; Z79.899 Other long term (current) drug therapy; Z95.1 Presence of aortocoronary bypass graft
CPT/HCPCS: 36415; 80053; 81003; 82009; 82803; 83605; 83735; 84100; 85025; 99284

== ENCOUNTER 2024-05-21 12:44 | Emergency (ER) | payer OTHER ==
[2024-05-21 13:31] VITALS: RESP 18
--- NOTE | 2024-05-21 14:39 | ED ---
URI HPI - General Chief Complaint: Upper Respiratory Infection Stated Complaint: Fever Time Seen by Provider: 05/21/24 13:09 Source: patient, RN notes reviewed Mode of arrival: ambulatory Limitations: no limitations - History of Present Illness Initial Comments: 78 year old male presenting to the ER with a chief complaint of a "slight cough". Patient states his recently tested positive for COVID-19. Patient is concerned he may also have COVID. Patient states for the past couple of days he has been feeling ill with a "slight cough, body aches and sore throat". He denies any fevers, difficulty breathing, wheezing, chest pain, abdominal pain, constipation/diarrhea, urinary complaints or peripheral edema. Patient has not taken anything for his symptoms at this time. - Related Data Home Medications Medication Instructions Recorded Confirmed metFORMIN HCL [Glucophage] 1,000 mg PO BID 07/16/21 01/20/22 Furosemide [Lasix] 40 mg PO DAILY 08/04/21 01/20/22 Atorvastatin Calcium [Lipitor] 40 mg PO HS 01/20/22 01/20/22 Metoprolol Tartrate [Lopressor] 12.5 mg PO BID 01/20/22 01/20/22 Previous Rx's Medication Instructions Recorded Aspirin 81 mg PO DAILY #30 chewable 02/06/18 Apixaban [Eliquis] 5 mg PO BID #60 tab 08/02/21 Pantoprazole [Protonix] 40 mg PO AC-BRKFST #30 tab 08/02/21 Ondansetron Odt [Zofran ODT] 4 mg PO Q12HR PRN #20 tab 09/08/21 ceFAZolin [Kefzol] 2 gm IVP Q8HR 21 Days ml 01/27/22 Erythromycin Ophth Oint [Romycin 1 applic LEFT EYE Q4H 5 Days #1 gm 08/26/22 Ophth Oint] Allergies Allergy/AdvReac Type Severity Reaction Status Date / Time No Known Allergies Allergy Verified 05/21/24 13:08 Review of Systems ROS Statement: Those systems with pertinent positive or pertinent negative responses have been documented in the HPI. ROS Other: All systems not noted in ROS Statement are negative. Past Medical History Past Medical History: Coronary Artery Disease (CAD), Diabetes Mellitus, Hyp erlipidemia, Hypertension, Myocardial Infarction ([place]) Additional Past Medical History / Comment(s): Pt recently admitted to [facility] on 07/16/21 with NSTEMI, new cardiomyopathy, acute systolic chf, 1st degree heart block/paroxysmal 2 degree and 3rd degree heart block, hypotension. Pt had cardiac cath/DELVIS/ CABG 3 vessel with aortic valve replacement. Last Myocardial Infarction Date:: 07/16/21 History of Any Multi-Drug Resistant Organisms: None Reported Past Surgical History: Cardiac Valve Replacement, Heart Catheterization With Stent, Hernia Repair Additional Past Surgical History / Comment(s): Right knee surgery CUT OUT CARTILAGE, hernia repair Past Anesthesia/Blood Transfusion Reactions: No Reported Reaction Date of Last Stent Placement:: 07/16/21 Past Psychological History: No Psychological Hx Reported Smoking Status: Never smoker Past Alcohol Use History: None Reported Past Drug Use History: None Reported - Past Family History Father Additional Family Medical History / Comment(s): AT AGE 84-CANCER OF LARNYX (SMOKER), CARDIAC PROBLEMS Mother Family Medical History: Diabetes Mellitus Additional Family Medical History / Comment(s): AT AGE 83- HAD A PITUITARY TUMOR REMOVED HAD SON CRISIS Sister(s) Family Medical History: Coronary Artery Disease (CAD) Additional Family Medical History / Comment(s): had CABG in her 70s General Exam Limitations: no limitations General appearance: alert, in no apparent distress ENT exam: Present: normal exam, normal oropharynx, mucous membranes moist, TM's normal bilaterally Neck exam: Present: normal inspection. Absent: tenderness, meningismus, lymphadenopathy Respiratory exam: Present: normal lung sounds bilaterally. Absent: respiratory distress, wheezes, rales, rhonchi, stridor Cardiovascular Exam: Present: regular rate, normal rhythm, normal heart sounds. Absent: systolic murmur, diastolic murmur, rubs, gallop, clicks Neurological exam: Present: alert, oriented X3, CN II-XII intact Skin exam: Present: warm, dry, intact, normal color. Absent: rash Course Vital Signs 05/21/24 05/21/24 13:05 13:25 Temperature 97.6 F Pulse Rate 68 Respiratory 20 18 Rate Blood Pressure 178/72 O2 Sat by Pulse 98 Oximetry Medical Decision Making - Medical Decision Making Was pt. sent in by a medical professional or institution (, PA, LABORATORY CLERK, urgent care, hospital, or fdc...) When possible be specific @ -No Did you speak to anyone other than the patient for history (EMS, parent, family, police, friend...)? What history was obtained from this source @ -No Did you review nursing and triage notes (agree or disagree)? Why? @ -I reviewed and agree with nursing and triage notes Were old charts reviewed (outside hosp., previous admission, EMS record, old EKG, old radiological studies, urgent care reports/EKG's, fdc records)? Report findings @ -No old charts were reviewed Differential Diagnosis (chest pain, altered mental status, abdominal pain women, abdominal pain men, vaginal bleeding, weakness, fever, dyspnea, syncope, hea dache, dizziness, GI bleed, back pain, seizure, CVA, palpatations, mental health, musculoskeletal)? @ -COVID, RSV, influenza, viral sinusitis, pneumonia this list is not meant to be all-inclusive EKG interpreted by me (3pts min.). @ -None done X-rays interpreted by me (1pt min.). @ -None done CT interpreted by me (1pt min.). @ -None done U/S interpreted by me (1pt. min.). @ -None done What testing was considered but not performed or refused? (CT, X-rays, U/S, labs)? Why? @ -None What meds were considered but not given or refused? Why? @ -Patient refused analgesic medications Did you discuss the management of the patient with other professionals (professionals i.e. , PA, LABORATORY CLERK, lab, RT, psych nurse, health care social worker, analytical engineer, teacher, inspectors and regulatory officers, caser in)? Give summary @ -No Was smoking cessation discussed for >3mins.? @ -No Was critical care preformed (if so, how long)? @ -No Were there social determinants of health that impacted care today? How? (Homelessness, low income, unemployed, alcoholism, drug addiction, transportation, low edu. Level, literacy, decrease access to med. care, [facility], rehab)? @ -No Was there de-escalation of care discussed even if they declined (Discuss DNR or withdrawal of care, Hospice)? DNR status @ -No What co-morbidities impacted this encounter? (DM, HTN, Smoking, COPD, CAD, Cancer, CVA, ARF, Chemo, Hep., AIDS, mental health diagnosis, sleep apnea, morbid obesity)? @ -None Was patient admitted / discharged? Hospital course, mention meds given and route, prescriptions, significant lab abnormalities, going to OR and other pertinent info. @ -Discharge. 78-year-old male presented to ER with a chief complaint of "slight cough". History and physical exam completed. Vital stable. Patient in no signs of acute distress nontoxic-appearing. Exam benign. Viral swabs positive for COVID. Influenza and RSV negative. Patient refused analgesic medications. Upon reevaluation, patient standing in exam room no signs of acute distress and eager for discharge. Patient stable for discharge at this time. Strict return parameters discussed. Patient discharged in stable condition with follow-up to PCP. Patient verbally expressed understanding and agreement with care plan. Case discussed with ED attending, Dr. Aleman. Undiagnosed new problem with uncertain prognosis? @ -No Drug Therapy requiring intensive monitoring for toxicity (Heparin, Nitro, Insulin, Cardizem)? @ -No Were any procedures done? @ -No Diagnosis/symptom? @ -Viral sinusitis/COVID/viral illness Acute, or Chronic, or Acute on Chronic? @ -Acute Uncomplicated (without systemic symptoms) or Complicated (systemic symptoms)? @ -Uncomplicated Side effects of treatment? @ -No Exacerbation, Progression, or Severe Exacerbation? @ -No Poses a threat to life or bodily function? How? (Chest pain, [place], [place], pneumonia, PE, COPD, DKA, ARF, appy, cholecystitis, CVA, Diverticulitis, Homicidal, Suicidal, threat to staff... and all critical care pts) @ -No - Lab Data Lab Results 05/21/24 Range/Units 13:33 Influenza Type A (PCR) Not Detected (Not Detectd) Influenza Type B (PCR) Not Detected (Not Detectd) RSV (PCR) Not Detected (Not Detectd) SARS-CoV-2 (PCR) Detected A (Not Detectd) Disposition Clinical Impression: Viral infection, COVID-19, Acute viral sinusitis Disposition: HOME SELF-CARE Condition: Stable Instructions (If sedation given, give patient instructions): COVID-19 (Coronavirus Disease 2019) (ED) Additional Instructions: Follow-up with PCP. Return to the ER for new or worsening concerns. You may take [id number] Tylenol and ibuprofen for symptom control. Is patient prescribed a controlled substance at d/c from ED?: No Referrals: [facility],Clinic [Primary Care Provider] - 1-2 days Time of Disposition: 14:39
[2024-05-21 14:51] VITALS: BP 150/78; PULSE 71; TEMP 97.8
== END 2024-05-21 14:51 | disposition home or self-care (01) ==
LOC: EC 12:44
DX: U07.1 COVID-19 (principal); Z95.1 Presence of aortocoronary bypass graft
CPT/HCPCS: 87636; 99283

== ENCOUNTER 2024-09-11 12:04 | Inpatient (IN) | payer OTHER, MEDICARE ==
[2024-09-11 12:10] LABS: Glucose,Whole Blood 198 mg/dL (70-110)
--- NOTE | 2024-09-11 12:14 | ED ---
Neuro HPI <Seb Aleman Lynette - Last Filed: 09/11/24 14:24> - General Source: patient, family Mode of arrival: ambulatory Limitations: no limitations - History of Present Illness Is the patient presenting with stroke symptoms?: No <Edil Carlton - Last Filed: 09/11/24 15:32> - General Chief Complaint: Neuro Symptoms/Deficit Stated Complaint: AMS - History of Present Illness Initial Comments: Patient is a 78-year-old male with coronary artery disease, diabetes mellitus, hyperlipidemia, hypertension, history of IA, history of aortic valve replacement, history of mini strokes over the past week presented to the ED with acute onset confusion that started this morning at around 5 AM. Patient r eported that he was having difficulty finding digits on his cell phone was feeling overall confused. Family reported patient has had about 4 episodes of mini strokes over the past week. Patient reports that his symptoms have slightly improved since this morning however still not back to baseline. Patient also reported some mild slurred speech this morning. Patient reported he has been having coughing, runny nose, sore throat, dizziness over the past week. Patient also reports a tension headache that started this morning. He denies fever, chills, nausea, vomiting, chest pain, shortness of breath, belly pain, diarrhea, constipation, lower extremity swelling, dysuria. (Edil Carlton) - Related Data Home Medications: Home Medications Medication Instructions Recorded Confirmed metFORMIN HCL [Glucophage] 1,000 mg PO BID 07/16/21 09/11/24 Atorvastatin Calcium [Lipitor] 40 mg PO HS 01/20/22 09/11/24 Metoprolol Tartrate [Lopressor] 12.5 mg PO BID 01/20/22 09/11/24 Furosemide [Lasix] 20 mg PO DAILY 09/11/24 09/11/24 HYDROcodone/APAP 10-325MG [[place] 1 tab PO BID PRN 09/11/24 09/11/24 10-325] Previous Rx's Medication Instructions Recorded Aspirin 81 mg PO DAILY #30 chewable 02/06/18 Apixaban [Eliquis] 5 mg PO BID #60 tab 08/02/21 Allergies/Adverse Reactions: Allergies Allergy/AdvReac Type Severity Reaction Status Date / Time No Known Allergies Allergy Verified 09/11/24 14:06 Review of Systems ROS Other: All systems not noted in ROS Statement are negative. <Seb Aleman - Last Filed: 09/11/24 14:24> ROS Other: All systems not noted in ROS Statement are negative. Constitutional: Denies: fever, chills Respiratory: Denies: cough, dyspnea Cardiovascular: Denies: chest pain, palpitations Gastrointestinal: Denies: abdominal pain, nausea, vomiting Genitourinary: Denies: urgency, dysuria Neurological: Reports: headache, confusion. Denies: weakness, numbness, paresthesias <Edil Carlton - Last Filed: 09/11/24 15:32> ROS Statement: Those systems with pertinent positive or pertinent negative responses have been documented in the HPI. General Exam Limitations: no limitations <Edil Carlton - Last Filed: 09/11/24 15:32> - General Exam Comments Initial Comments: GENERAL: This is a 78-year-old in no apparent distress at the time of examination. Pleasant and cooperative. HEENT: Head is atraumatic, normocephalic. PERRLA. RESPIRATORY: Clear to auscultation bilaterally. No wheezing, rhonchi, crackles, Rales. CARDIOVASCULAR: Regular rate and rhythm. No systolic or diastolic murmurs. GASTROINTESTINAL: No abdominal distention. Abdomen soft and nontender to palpation. INTEGUMENTARY: No cyanosis. No jaundice. No rashes noted. No cellulitis noted. EXTREMITIES: 2+ peripheral pulses. No evidence of peripheral edema. No calf tenderness noted. NEUROLOGIC: Cranial nerves II-XII intact. Muscle strength in upper and lower extremity intact bilaterally. Sensation intact bilaterally in upper and lower extremity. PSYCHIATRIC: Awake, alert, and oriented X 3. Appropriate affect. Intact judgement and insight. (Edil Carlton) Stroke MDM - Lab Data Result diagrams: 09/11/24 13:00 09/11/24 13:00 <Seb Aleman - Last Filed: 09/11/24 14:24> - Lab Data Result diagrams: 09/11/24 13:00 09/11/24 13:00 <Edil Carlton - Last Filed: 09/11/24 15:32> - Lab Data Lab Results 09/11/24 09/11/24 09/11/24 Range/Units 12:08 13:00 13:00 WBC 8.6 (3.8-10.6) k/uL RBC 4.60 (4.30-5.90) m/uL Hgb 14.4 (13.0-17.5) gm/dL Hct 44.4 (39.0-53.0) % MCV 96.6 (80.0-100.0) fL MCH 31.4 (25.0-35.0) pg MCHC 32.5 (31.0-37.0) g/dL RDW 12.8 (11.5-15.5) % Plt Count 215 (150-450) k/uL MPV 7.8 Neutrophils % 79 % Lymphocytes % 13 % Monocytes % 5 % Eosinophils % 2 % Basophils % 1 % Neutrophils # 6.8 (1.3-7.7) k/uL Lymphocytes # 1.1 (1.0-4.8) k/uL Monocytes # 0.4 (0-1.0) k/uL Eosinophils # 0.2 (0-0.7) k/uL Basophils # 0.1 (0-0.2) k/uL PT 10.9 (10.0-12.5) sec INR 1.0 (<1.2) APTT 23.9 (22.0-30.0) sec Sodium (137-145) mmol/L Potassium (3.5-5.1) mmol/L Chloride (98-107) mmol/L Carbon Dioxide (22-30) mmol/L Anion Gap mmol/L BUN (9-20) mg/dL Creatinine (0.66-1.25) mg/dL Est GFR (CKD-EPI)AfAm (>60 ml/min/1.73 sqM) Est GFR (CKD-EPI)NonAf (>60 ml/min/1.73 sqM) Glucose (74-99) mg/dL POC Glucose (mg/dL) 198 H (70-110) mg/dL POC Glu Cherry Picker Operator ID Jomar Bk Calcium (8.4-10.2) mg/dL Total Bilirubin (0.2-1.3) mg/dL AST (17-59) U/L ALT (4-49) U/L Alkaline Phosphatase (38-126) U/L Creatine Kinase (55-170) U/L Troponin I (0.000-0.034) ng/mL Total Protein (6.3-8.2) g/dL Albumin (3.5-5.0) g/dL 09/11/24 09/11/24 Range/Units 13:00 13:00 WBC (3.8-10.6) k/uL RBC (4.30-5.90) m/uL Hgb (13.0-17.5) gm/dL Hct (39.0-53.0) % MCV (80.0-100.0) fL MCH (25.0-35.0) pg MCHC (31.0-37.0) g/dL RDW (11.5-15.5) % Plt Count (150-450) k/uL MPV Neutrophils % % Lymphocytes % % Monocytes % % Eosinophils % % Basophils % % Neutrophils # (1.3-7.7) k/uL Lymphocytes # (1.0-4.8) k/uL Monocytes # (0-1.0) k/uL Eosinophils # (0-0.7) k/uL Basophils # (0-0.2) k/uL PT (10.0-12.5) sec INR (<1.2) APTT (22.0-30.0) sec Sodium 134 L (137-145) mmol/L Potassium 4.2 (3.5-5.1) mmol/L Chloride 94 L (98-107) mmol/L Carbon Dioxide 30 (22-30) mmol/L Anion Gap 10 mmol/L BUN 29 H (9-20) mg/dL Creatinine 1.34 H (0.66-1.25) mg/dL Est GFR (CKD-EPI)AfAm 58 (>60 ml/min/1.73 sqM) Est GFR (CKD-EPI)NonAf 50 (>60 ml/min/1.73 sqM) Glucose 197 H (74-99) mg/dL POC Glucose (mg/dL) (70-110) mg/dL POC Glu Cherry Picker Operator ID Calcium 9.8 (8.4-10.2) mg/dL Total Bilirubin 0.8 (0.2-1.3) mg/dL AST 22 (17-59) U/L ALT 19 (4-49) U/L Alkaline Phosphatase 81 (38-126) U/L Creatine Kinase 53 L (55-170) U/L Troponin I 0.012 (0.000-0.034) ng/mL Total Protein 7.9 (6.3-8.2) g/dL Albumin 4.6 (3.5-5.0) g/dL - Medical Decision Making I personally saw the patient and performed the critical portion of the service. I discussed the patient care with the resident or medical student. I directed management, care planning and final disposition of the patient. This includes, but not limited to, review of all lab work, radiological studies, EKG's, consultations, vital signs, and nursing notes. My EKG interpretation: Ventricular rate 6, sinus rhythm,. Both to 93, QRS 131, QTc 446. No NH prolongation, no QTC prolongation, no ST or T-wave changes noted. Overall, this EKG is unremarkable EKG interpreted by me (3pts min.) @As above X-Rays interpreted by me (1 pt min.) @Chest x-ray shows no acute processes CT interpreted by me ( 1pt min.) @CT brain is nonacute U/S interpreted by me (1 pt min.) @None Critical care time of 0 minutes excluding separately billable procedures was spent in conjunction with critical care activities provided by the Resident and Attending simultaneously. I was present during no procedures for all critical portions of the procedure and as immediately available to furnish service during the entire procedure. Patient was seen and evaluated upon arrival. Patient presents emergency department with episode of confusion. Patient believes that he was having a st roke. Denies any extremity deficits. His symptoms were considered as confusion with difficulty texting and communicating with his cell phone. Patient did have a mild headache that he denies that it is the worst headache of his life. Denies any thunderclap nature. Vital signs are stable. Patient is well- appearing. NIH score of 0. Neuroexam is benign. Not aphasic. Nondysarthric. Labs and imaging are unremarkable. Disposition options discussed with patient (Seb Aleman) Was pt. sent in by a medical professional or institution (, [facility], BOARD MACHINE SET UP OPERATOR, urgent care, hospital, or long term...) When possible be specific @ -No Did you speak to anyone other than the patient for history (EMS, parent, family, police, friend...)? What history was obtained from this source @ -Spoke with patient family Did you review nursing and triage notes (agree or disagree)? Why? @ -I reviewed and agree with nursing and triage notes Were old charts reviewed (outside hosp., previous admission, EMS record, old EKG, old radiological studies, urgent care reports/EKG's, long term records)? Report findings @ -No old charts reviewed Differential Diagnosis? @ -Mini stroke, acute ischemic stroke, hemorrhagic stroke, vertigo, altered mental status EKG interpreted by me (3pts min.). @ -Sinus rhythm with first-degree AV block with occasional ventricular premature complexes, ventricular rate of 76 bpm, QTc interval 446 ms, no ST elevation or deviation X-rays interpreted by me (1pt min.). @ -No acute cardiopulmonary process CT interpreted by me (1pt min.). @ -No acute intracranial bleeding or mass U/S interpreted by me (1pt. min.). @ -Not performed What testing was considered but not performed or refused? (CT, X-rays, U/S, labs)? Why? @ -Considered obtaining CT angiography however given patient's NIH score of 0, will not order at this time. What meds were considered but not given or refused? Why? @ -None Did you discuss the management of the patient with other professionals (professionals i.e. , PA, BOARD MACHINE SET UP OPERATOR, lab, RT, psych nurse, social sciences chair, horizontal boring mill set up operator, teacher, commercial loan officer, case work aide)? Give summary @ -Discussed with Dr. Aleman Was smoking cessation discussed for >3mins.? @ -No Was critical care preformed (if so, how long)? @ -No Were there social determinants of health that impacted care today? How? (Homelessness, low income, unemployed, alcoholism, drug addiction, transportation, low edu. Level, literacy, decrease access to med. care, senior living, rehab)? @ -No Was there de-escalation of care discussed even if they declined (Discuss DNR or withdrawal of care, Hospice)? DNR status @ -No What co-morbidities impacted this encounter? (DM, HTN, Smoking, COPD, CAD, Cancer, CVA, ARF, Chemo, Hep., AIDS, mental health diagnosis, sleep apnea, morbid obesity)? @ -Coronary artery disease, diabetes mellitus, hyperlipidemia, hypertension, history of IA, history of mini strokes Was patient admitted / discharged? Hospital course, mention meds given and route, prescriptions, significant lab abnormalities, going to OR and other pertinent info. @ -Patient will be admitted to observation. CT of head without contrast was ordered which showed no acute bleeding or mass. Chest x-ray showed no acute cardiopulmonary process. Given patient's age and symptom of mild dysarthria happened this morning, patient will be admitted to observation. Aspirin 325 mg was given. Undiagnosed new problem with uncertain prognosis? @ -No Drug Therapy requiring intensive monitoring for toxicity (Heparin, Nitro, Insulin, Cardizem)? @ -No Were any procedures done? @ -Head CT and chest x-ray Diagnosis/symptom? @ -TIA Acute, or Chronic, or Acute on Chronic? @ -Acute Uncomplicated (without systemic symptoms) or Complicated (systemic symptoms)? @ -Uncomplicated Side effects of treatment? @ -No side effects Exacerbation, Progression, or Severe Exacerbation? @ -No exacerbation Poses a threat to life or bodily function? How? (Chest pain, USA, IA, pneumonia, PE, COPD, DKA, ARF, appy, cholecystitis, CVA, Diverticulitis, Homicidal, Suicidal, threat to staff... and all critical care pts) @ -No (Edil Carlton) Past Medical History Past Medical History: Coronary Artery Disease (CAD), Diabetes Mellitus, Hyperlipidemia, Hypertension, Myocardial Infarction (IA) Additional Past Medical History / Comment(s): Pt recently admitted to [facility] on 07/16/21 with NSTEMI, new cardiomyopathy, acute systolic chf, 1st degree heart block/paroxysmal 2 degree and 3rd degree heart block, hypotension. Pt had cardiac cath/DELVIS/ CABG 3 vessel with aortic valve replacement. Last Myocardial Infarction Date:: 07/16/21 History of Any Multi-Drug Resistant Organisms: None Reported Past Surgical History: Cardiac Valve Replacement, Heart Catheterization With Stent, Hernia Repair Additional Past Surgical History / Comment(s): Right knee surgery CUT OUT CARTILAGE, hernia repair Past Anesthesia/Blood Transfusion Reactions: No Reported Reaction Date of Last Stent Placement:: 07/16/21 Past Psychological History: No Psychological Hx Reported Smoking Status: Never smoker Past Alcohol Use History: None Reported Past Drug Use History: None Reported - Past Family History Father Additional Family Medical History / Comment(s): AT AGE 84-CANCER OF LARNYX (SMOKER), CARDIAC PROBLEMS Mother Family Medical History: Diabetes Mellitus Additional Family Medical History / Comment(s): AT AGE 83- HAD A PITUITARY TUMOR REMOVED HAD SON CRISIS Sister(s) Family Medical History: Coronary Artery Disease (CAD) Additional Family Medical History / Comment(s): had CABG in her 70s <Edil Carlton - Last Filed: 09/11/24 15:32> Course Vital Signs 09/11/24 09/11/24 09/11/24 12:08 13:04 13:40 Temperature 97.3 F L Pulse Rate 90 76 79 Respiratory 20 16 18 Rate Blood Pressure 210/99 197/103 178/104 O2 Sat by Pulse 98 97 97 Oximetry 09/11/24 15:00 Temperature Pulse Rate 71 Respiratory 20 Rate Blood Pressure 141/59 O2 Sat by Pulse 97 Oximetry Disposition <Seb Aleman - Last Filed: 09/11/24 14:24> Is patient prescribed a controlled substance at d/c from ED?: No Time of Disposition: 15:30 <Edil Carlton - Last Filed: 09/11/24 15:32> Clinical Impression: Transient cerebral ischemia Narrative: Patient will be admitted to observation for TIA/stroke like symptoms. Aspirin 325 mg was given in the ED. (Edil Carlton) Disposition: ADMITTED IP TO THIS HOSP Condition: Stable
[2024-09-11 13:12] LABS: Eosinophils % (A) 2 %; HCT 44.4 % (39.0-53.0); HGB 14.4 gm/dL (13.0-17.5); Lymphocytes % (A) 13 %; MCH 31.4 pg (25.0-35.0); MCHC 32.5 g/dL (31.0-37.0); MCV 96.6 fL (80.0-100.0); Mean Platelet Volume 7.8; Monocytes % (A) 5 %; Neutrophils % (A) 79 %; Platelet Count 215 k/uL (150-450); RDW 12.8 % (11.5-15.5); WBC 8.6 k/uL (3.8-10.6)
[2024-09-11 13:13] LABS: Basophils # (A) 0.1 k/uL (0-0.2); Basophils % (A) 1 %; Eosinophils # (A) 0.2 k/uL (0-0.7); Lymphocytes # (A) 1.1 k/uL (1.0-4.8); Monocytes # (A) 0.4 k/uL (0-1.0); Neutrophils # (A) 6.8 k/uL (1.3-7.7)
[2024-09-11 13:26] LABS: ALT 19 U/L (4-49); AST 22 U/L (17-59); African American GFR (CKD) 58 (>60 ml/min/1.73 sqM); Albumin 4.6 g/dL (3.5-5.0); Alkaline Phosphatase 81 U/L (38-126); Anion Gap 10 mmol/L; Blood Urea Nitrogen 29 mg/dL (9-20); Calcium 9.8 mg/dL (8.4-10.2); Carbon Dioxide 30 mmol/L (22-30); Chloride 94 mmol/L (98-107); Creatine Kinase 53 U/L (55-170); Glucose 197 mg/dL (74-99); Non-African American GFR(CKD) 50 (>60 ml/min/1.73 sqM); Potassium 4.2 mmol/L (3.5-5.1); Sodium 134 mmol/L (137-145); Total Bilirubin 0.8 mg/dL (0.2-1.3); Total Protein 7.9 g/dL (6.3-8.2)
[2024-09-11 13:29] LABS: Partial Thromboplastin Time 23.9 sec (22.0-30.0); Prothrombin Time 10.9 sec (10.0-12.5)
--- NOTE | 2024-09-11 13:47 | CT ---
EXAMINATION TYPE: CT brain wo con DATE OF EXAM: 09/11/2024 COMPARISON: 08/04/2021 CLINICAL INDICATION: Male, 78 years old with history of Neuro deficit, acute, stroke suspected; PHH, AMS CT DLP: 1103 mGycm Automated exposure control for dose reduction was used. Findings: The ventricles, basal cisterns and sulci over the convexities are within normal limits for the patien t's age. And there is no mass effect or shift of midline structures. There is a small remote lacunar infarct in left basal ganglia. There is no acute intra or extra-axial hemorrhage The posterior fossa including the brainstem, fourth ventricle and cerebellar pontine angles appear no rmal. Intraorbital contents appear normal and symmetric. There is an air-fluid level in the right maxillary sinus consistent with acute sinusitis. There is mi ld chronic inflammatory changes in the left maxilla sinus. The mastoid air cells are well aerated. The calvarium is intact. IMPRESSION: 1. No acute bleed or mass effect. 2. Small remote lacunar infarct left basal ganglia. 3 mild to moderate age-appropriate atrophy. 4. Acute and chronic maxillary sinusitis. [facility], , 09/11/2024 1:45 PM
--- NOTE | 2024-09-11 13:59 | XR ---
EXAMINATION TYPE: XR chest 2V DATE OF EXAM: 09/11/2024 1:54 PM COMPARISON: Multiple radiographs, with the most recent on 08/07/2021. TECHNIQUE: XR chest 2V Frontal and lateral views of the chest. CLINICAL INDICATION:Male, 78 years old with history of altered mental status; FINDINGS: Lungs/Pleura: There is no evidence of pleural effusion, focal consolidation, or pneumothorax. Pulmonary vascularity: Chronic interstitial prominence. Heart/mediastinum: Cardiomediastinal silhouette is enlarged and stable. Cardiac valvular prosthesis. Post-CABG changes. Left atrial appendage occlusion devices present. Musculoskeletal: Multiple level degenerative disc disease changes seen throughout the spine. Midline sternotomy wires are noted and stable. Mild bilateral AC joint arthropathy. IMPRESSION: Chronic changes without acute pulmonary process. [facility], , 09/11/2024 1:57 PM
[2024-09-11] MEDS: ASPIRIN 325 MG TAB PO STA (15:25)
[2024-09-11] MEDS ORDERED: DEXTROSE 50% SYRINGE 50 ML IVP PRN ×2 (17:27)
[2024-09-11] MEDS ORDERED: HYDROcodone/APAP 10-325MG 1 EACH TAB PO PRN (17:27)
[2024-09-11 17:44] LABS: Glucose,Whole Blood 295 mg/dL (70-110)
[2024-09-11] MEDS: INSULIN LISPRO (HumaLOG) 100 UNIT/ML 10 mL VL SQ SCH (17:53)
--- NOTE | 2024-09-11 18:01 | P.HPIM ---
History of Present Illness H&P Date: 09/11/24 Patient is a 78-year-old male with A-fib (on Eliquis), CAD (stent placement and three-vessel CABG) , CVA, TIA diabetes, hyperlipidemia, hypertension, heart failure, history of aortic valve placement for evaluation of acute onset confusion that started around 5 AM this morning. Patient reported that he initially had difficulty finding the digits on his cell phone and was feeling overall confused and had noted some mild slurred speech. He reports an associated tension headache. He denied fever, chills, cough, nausea, vomiting, chest pain, palpitations, shortness of breath, extremity swelling, calf pain, focal weakness, facial asymmetry, speech changes or recent hospitalizations. On admission, he reports that his symptoms have slightly improved however does not feel that he is at baseline. Per family, patient had about 4 episodes of "mini strokes" over the past week. He also admitted that he recently had a cough with a runny nose and sore throat over the past week. On admission, brain CT showed no acute bleed/mass effect, small remote lacunar infarct of the left basal ganglia, mild to moderate age-appropriate atrophy, acute and chronic maxillary sinusitis. Chest x-ray showed chronic changes without acute pulmonary process. EKG shows sinus rhythm with a rate of 76 and first-degree AV block with IL interval 293 MS, prolonged QRS duration 131 MS PVCs seen, inverted T waves V1-V3, QTc 446 MS Labs on admission showed WBC 8.6, hemoglobin 14.4, platelet count 215,000, PT 10.9, INR 1, PTT 23.9, sodium 134, potassium 4.2, chloride 94, bicarb 30, BUN 29, creatinine 1.34, glucose 197, calcium 9.8, troponins negative at 0.0 12, albumin 4.6, creatinine kinase 53. Vitals on admission showed temperature 97.3, pulse rate 90, respiratory rate 20, blood pressure 210/99, O2 saturation 98% on room air ED documentation reviewed. High-dose aspirin given in the ED Review of systems: Pertinent positives and negatives as discussed in HPI, a complete review of systems was performed and all other systems are negative. Social history: Tobacco: Never smoker Alcohol: History of heavy alcohol intake. Case of beer daily. Quit 20 years ago Recreational drugs: Denies illicit or recreational drug use Travel: No recent prolonged travel Physical examination: Vital signs reviewed General: non toxic, no distress, appears at stated age, Derm: no unusual rashes/lesions, warm Head: atraumatic, normocephalic, symmetric Eyes: EOMI, anicteric sclera, pupils equal round reactive to light ENT: Nose and ears atraumatic Neck: No cervical lymphadenopathy, trachea midline, supple Mouth: no lip lesion, mucus membranes moist Cardiovascular: S1S2 reg, no murmur Lungs: CTA bilateral, no rhonchi, no rales, no accessory muscle use Abdominal: soft, nondistended, nontender to palpation, no guarding Ext: muscle strength 5 out of 5 in all distal and proximal 4 extremities grossly, no gross muscle atrophy, no contractures, positive dorsalis pedis pulse bilateral, no edema Neuro: CN II-XI grossly intact, no gross focal neuro deficits Psych: Alert and oriented x 3, appropriate affect and mood Assessment/Plan: 78-year-old male with history of A-fib, CAD, diabetes, hyperlipidemia, hypertension, heart failure CVA, TIA and history of aortic valve replacement here for evaluation of acute onset confusion and slurred speech concerning for CVA. #. CVA -brain CT showed no acute bleed/mass effect, small remote lacunar infarct of the left basal ganglia, mild to moderate age-appropriate atrophy, acute and chronic maxillary sinusitis. -EKG shows sinus rhythm with a rate of 76 and first-degree AV block with IL interval 293 MS, prolonged QRS duration 131 MS PVCs seen, inverted T waves V1-V 3, QTc 446 MS -Glucose 197 -Allow permissive hypertension -Neurochecks -Cardiac telemetry -Supplemental oxygen as needed -High dose aspirin given in the ED. Continue with aspirin 81 -Continue with home Lipitor 40 mg p.o. daily -Continue home metoprolol 12.5 twice daily -Brain MRI ordered -Check TSH, lipid panel and A1c -Consult PT OT and speech therapy -Consult neuro #. CKD stage III, at baseline -Creatinine 1.34 -Monitor renal function #. Diabetes with hyperglycemia -Glucose 197 -Check A1c -Insulin sliding scale ACHS -Glucose Accu-Cheks ACHS. Monitor for hypoglycemia Chronic Conditions: #. A-fib (on Eliquis) #. CAD (stent placement and three-vessel CABG) #. Hyperlipidemia #. Hypertension #. Heart failure -Resume home Eliquis -Resume home [place] -Hold Lasix for now F: Oral intake E: Monitor electrolytes and renal function N: Heart healthy diet A: Can self ambulate DVT ppx: Eliquis 5 mg p.o. twice daily Dispo: The patient is admitted as observation with an anticipated less than 2 midnight stay for evaluation of CVA CODE STATUS: Full Discussed with: Patient Anticipated discharge place: Home Jenny Ornelas MD PGY-1 IM Dictation was produced using [employer] dictation software. please excuse any grammatical, word or spelling errors. I have seen and evaluated the patient today. Discussed with the resident and agree with the residents finding and plan as documented in the resident's note. Changes highlighted in blue font. Past Medical History Past Medical History: Coronary Artery Disease (CAD), Diabetes Mellitus, Hyperlipidemia, Hypertension, Myocardial Infarction ([place]) Additional Past Medical History / Comment(s): Pt recently admitted to [facility] on 07/16/21 with NSTEMI, new cardiomyopathy, acute systolic chf, 1st degree heart block/paroxysmal 2 degree and 3rd degree heart block, hypotension. Pt had cardiac cath/DELVIS/ CABG 3 vessel with aortic valve replacement. Last Myocardial Infarction Date:: 07/16/21 History of Any Multi-Drug Resistant Organisms: None Reported Past Surgical History: Cardiac Valve Replacement, Heart Catheterization With Stent, Hernia Repair Additional Past Surgical History / Comment(s): Right knee surgery CUT OUT CARTILAGE, hernia repair Past Anesthesia/Blood Transfusion Reactions: No Reported Reaction Date of Last Stent Placement:: 07/16/21 Past Psychological History: No Psychological Hx Reported Smoking Status: Never smoker Past Alcohol Use History: None Reported Past Drug Use History: None Reported - Past Family History Father Additional Family Medical History / Comment(s): AT AGE 84-CANCER OF LARNYX (SMOKER), CARDIAC PROBLEMS Mother Family Medical History: Diabetes Mellitus Additional Family Medical History / Comment(s): AT AGE 83- HAD A PITUITARY TUMOR REMOVED HAD SON CRISIS Sister(s) Family Medical History: Coronary Artery Disease (CAD) Additional Family Medical History / Comment(s): had CABG in her 70s Medications and Allergies Home Medications Medication Instructions Recorded Confirmed Type Aspirin 81 mg PO DAILY #30 chewable 02/06/18 09/11/24 Rx metFORMIN HCL [Glucophage] 1,000 mg PO BID 07/16/21 09/11/24 History Apixaban [Eliquis] 5 mg PO BID #60 tab 08/02/21 09/11/24 Rx Atorvastatin Calcium [Lipitor] 40 mg PO HS 01/20/22 09/11/24 History Metoprolol Tartrate [Lopressor] 12.5 mg PO BID 01/20/22 09/11/24 History Furosemide [Lasix] 20 mg PO DAILY 09/11/24 09/11/24 History HYDROcodone/APAP 10-325MG [[place] 1 tab PO BID PRN 09/11/24 09/11/24 History 10-325] Allergies Allergy/AdvReac Type Severity Reaction Status Date / Time No Known Allergies Allergy Verified 09/11/24 14:06 Physical Exam Vitals: Vital Signs Temp Pulse Resp BP Pulse Ox 09/11/24 15:00 71 20 141/59 97 09/11/24 13:40 79 18 178/104 97 09/11/24 13:04 76 16 197/103 97 09/11/24 12:08 97.3 F L 90 20 210/99 98 Intake and Output 09/11/24 09/11/24 09/11/24 06:59 14:59 22:59 Other: Weight 81.647 kg Results CBC & Chem 7: 09/11/24 13:00 09/11/24 13:00 Labs: Abnormal Lab Results - Last 24 Hours (Table) 09/11/24 09/11/24 Range/Units 12:08 13:00 Sodium 134 L (137-145) mmol/L Chloride 94 L (98-107) mmol/L BUN 29 H (9-20) mg/dL Creatinine 1.34 H (0.66-1.25) mg/dL Glucose 197 H (74-99) mg/dL POC Glucose (mg/dL) 198 H (70-110) mg/dL Creatine Kinase 53 L (55-170) U/L
[2024-09-11 20:33] LABS: Glucose,Whole Blood 199 mg/dL (70-110)
[2024-09-11] MEDS: ATORVASTATIN 40 MG TAB PO SCH (21:06)
[2024-09-11] MEDS: APIXABAN 5 MG TAB PO SCH (21:06)
[2024-09-11] MEDS: METOPROLOL TARTRATE 12.5 MG TAB PO SCH (21:06)
[2024-09-12 06:18] LABS: Basophils # (A) 0.1 k/uL (0-0.2); Basophils % (A) 1 %; Eosinophils # (A) 0.2 k/uL (0-0.7); Eosinophils % (A) 3 %; HCT 43.2 % (39.0-53.0); HGB 13.5 gm/dL (13.0-17.5); Lymphocytes # (A) 1.1 k/uL (1.0-4.8); Lymphocytes % (A) 17 %; MCH 30.7 pg (25.0-35.0); MCHC 31.3 g/dL (31.0-37.0); MCV 98.1 fL (80.0-100.0); Mean Platelet Volume 7.9; Monocytes # (A) 0.5 k/uL (0-1.0); Monocytes % (A) 7 %; Neutrophils # (A) 4.6 k/uL (1.3-7.7); Neutrophils % (A) 70 %; Platelet Count 219 k/uL (150-450); RBC 4.41 m/uL (4.30-5.90); RDW 12.8 % (11.5-15.5); WBC 6.5 k/uL (3.8-10.6)
[2024-09-12 06:47] LABS: ALT 17 U/L (4-49); AST 19 U/L (17-59); African American GFR (CKD) 55 (>60 ml/min/1.73 sqM); Albumin 4.1 g/dL (3.5-5.0); Alkaline Phosphatase 66 U/L (38-126); Anion Gap 12 mmol/L; Blood Urea Nitrogen 32 mg/dL (9-20); Calcium 9.3 mg/dL (8.4-10.2); Carbon Dioxide 26 mmol/L (22-30); Chloride 97 mmol/L (98-107); Glucose 269 mg/dL (74-99); Non-African American GFR(CKD) 48 (>60 ml/min/1.73 sqM); Potassium 4.3 mmol/L (3.5-5.1); Sodium 135 mmol/L (137-145); Total Bilirubin 0.8 mg/dL (0.2-1.3); Total Protein 6.9 g/dL (6.3-8.2)
[2024-09-12 07:04] LABS: Glucose,Whole Blood 242 mg/dL (70-110)
[2024-09-12 09:12] LABS: Glucose,Whole Blood 228 mg/dL (70-110)
[2024-09-12] MEDS: ASPIRIN 81 MG PO SCH (09:13)
[2024-09-12] MEDS: AMOXIC-POT CLAV 500-125 MG 1 EACH TAB PO SCH (09:13)
[2024-09-12 10:11] LABS: Glucose,Whole Blood 231 mg/dL (70-110)
[2024-09-12 11:12] LABS: Chol/HDL Ratio 4.12 Ratio
--- NOTE | 2024-09-12 11:40 | MR ---
EXAMINATION TYPE: MR brain wo con DATE OF EXAM: 09/12/2024 COMPARISON: CT brain from 1 day earlier. HISTORY: AMS. Stroke. TECHNIQUE: Multiplanar, multisequence imaging of the brain and brainstem is performed without IV cont rast. FINDINGS: Diffusion weighted images demonstrate no evidence of a recent infarct or other diffusion abnormality. There is moderate ventricular and sulcal prominence. No suspicious white matter signal abnormalities. Midline structures demonstrate normal morphology. The craniocervical junction appears within normal limits. Normal vascular flow voids are present. The globes are intact bilaterally. Mild to moderate m ucosal thickening involving bilateral maxillary sinuses with some dependent fluid on the right noted. Mild to moderate mucosal thickening involving ethmoid sinuses bilaterally. IMPRESSION: 1. No MRI evidence for a recent infarct. 2. There is persistent moderate diffuse cerebral atrophy. 3. Bilateral maxillary sinus disease with acute finding suspected on the right redemonstrated. [facility], , 09/12/2024 11:37 AM
--- NOTE | 2024-09-12 11:48 | CA ---
Transthoracic Echo Report Name: Hernandez Maki Age: 78 Gender: M : 1945 Exam Date: 09/12/2024 10:15 Exam Location: [facility] Ht (in): 70 Wt (lb): 180 Ordering Physician: Paul Arana MD Attending/Referring Phys: Customer Records Division Supervisor Joanna Starr RDCS Procedure CPT: Indications: stroke Cardiac Hx: AV Replacement, CABG Technical Quality: Fair Contrast 1: Definity Total Dose (mL): 2 Contrast 2: Total Dose (mL): MEASUREMENTS (Male / Female) Normal Values 2D ECHO LV Diastolic Diameter PLAX 5.0 cm 4.2 - 5.9 / 3.9 - 5.3 cm LV Systolic Diameter PLAX 3.7 cm IVS Diastolic Thickness 1.1 cm 0.6 - 1.0 / 0.6 - 0.9 cm LVPW Diastolic Thickness 1.1 cm 0.6 - 1.0 / 0.6 - 0.9 cm LV Relative Wall Thickness 0.5 RV Internal Dim ED PLAX 1.5 cm LVOT Diameter 1.7 cm Aortic Root Diameter 3.7 cm LA Systolic Diameter LX 5.4 cm 3.0 - 4.0 / 2.7 - 3.8 cm LA Volume 113.7 cm??? 18 - 58 / 22 - 52 cm??? LA Volume Index 56.3 cm???/m??? 16 - 28 cm???/m??? M-MODE Aortic Root Diameter MM 3.2 cm LA Systolic Diameter MM 3.8 cm LA Ao Ratio MM 1.2 DOPPLER AV Peak Velocity 217.1 cm/s AV Peak Gradient 18.9 mmHg AV Mean Velocity 141.6 cm/s AV Mean Gradient 9.1 mmHg AV Velocity Time Integral 49.6 cm LVOT Peak Velocity 91.2 cm/s LVOT Peak Gradient 3.3 mmHg LVOT Velocity Time Integral 22.4 cm LVOT Stroke Volume 51.0 cm??? LVOT Stroke Volume Index 25.5 ml/m??? LVOT Cardiac Index 1616.2 cm???/min???m??? AV Area Cont Eq vti 1.0 cm??? AV Area Cont Eq pk 1.0 cm??? MV Peak Velocity 124.6 cm/s MV Peak Gradient 6.2 mmHg MV Mean Velocity 79.9 cm/s MV Mean Gradient 3.0 mmHg MV Velocity Time Integral 36.5 cm MV Area PHT 3.2 cm??? Mitral E Point Velocity 122.5 cm/s Mitral A Point Velocity 102.5 cm/s Mitral E to A Ratio 1.2 MV Deceleration Time 235.9 ms TR Peak Velocity 278.4 cm/s TR Peak Gradient 31.0 mmHg FINDINGS Left Ventricle Left ventricular ejection fraction is estimated at 40-45 %. Mildly increased septal wall thickness. Left ventricular cavity size normal. Mildly reduced global left ventricular systolic function. Right Ventricle Mild right ventricular dilatation. Mild pulmonary hypertension. Right Atrium Moderate right atrial dilatation. Left Atrium Severely increased left atrial diameter. Severely increased left atrial volume. Mitral Valve Mitral valve thickened. Mild mitral regurgitation. No mitral stenosis. Aortic Valve Normally functioning prosthetic aortic valve with a peak gradient of 19 mmHg and a mean gradient of 9mmHg. No aortic regurgitation. Tricuspid Valve Structurally normal tricuspid valve. Mild tricuspid regurgitation. No tricuspid stenosis. Pulmonic Valve Structurally normal pulmonic valve. Moderate pulmonic regurgitation. No pulmonic stenosis. Pericardium No pericardial or pleural effusion. Aorta Mildly dilated proximal ascending aorta (tube). CONCLUSIONS Diagnosis CVA like symptoms Mildly reduced LV systolic function ejection fraction 45% Bioprosthetic aortic valve stable and functioning normally with acceptable gradients No intracardiac masses Left atrial enlargement No [id number] shunting at the intra atrial level Previewed by: Dr. Wilber Morse MD (Electronically Signed) Final Date: 12 September 2024 11:47
[2024-09-12 12:39] LABS: Glucose,Whole Blood 214 mg/dL (70-110)
[2024-09-12] MEDS ORDERED: NITROGLYCERIN-D5W PMX 50 MG in DEXTROSE/WATER 1 250ML.BAG IV SCH (16:15)
--- NOTE | 2024-09-12 16:24 | US ---
EXAMINATION TYPE: US carotid duplex BILAT DATE OF EXAM: 09/12/2024 COMPARISON: Carotid ultrasound 07/19/2021, CTA head and neck 02/05/2018 CLINICAL INDICATION: Male, 78 years old with history of TIA; Multiple strokes, confusion and weakness started today; Hx HTN and DM Additional History: .... TECHNIQUE: Grayscale, color Doppler and spectral Doppler evaluation of the bilateral carotid systems and vertebral arteries. Indirect Doppler criteria was utilized. FINDINGS: EXAM MEASUREMENTS: RIGHT: Peak Systolic Velocity (PSV) cm/sec ----- Right CCA: 44 ----- Right ICA: 133 ----- Right ECA: 131 ICA/CCA ratio: 3.0 RIGHT: End Diastole cm/sec ----- Right CCA: 11 ----- Right ICA: 14 ----- Right ECA: 8 LEFT: Peak Systolic Velocity (PSV) cm/sec ----- Left CCA: 59 ----- Left ICA: 95 ----- Left ECA: 90 ICA/CCA ratio: 1.6 LEFT: End Diastole cm/sec ----- Left CCA: 10 ----- Left ICA: 17 ----- Left ECA: 8 VERTEBRALS (direction of flow): Right Vertebral: Antegrade Left Vertebral: Antegrade Rhythm: Arrhythmia ENVELOPE FOLDING MACHINE ADJUSTER NOTES: Calcified plaque seen bilaterally, intimal thickening seen left CCA, slightly elev ated right ICA and ECA velocities. Color Doppler imaging shows patency with blood flow throughout the carotid artery. Spectral waveforms are within normal limits. IMPRESSION: Right: 50-69% stenosis of the proximal right internal carotid artery. Left: Less than 50% stenosis of the carotid bifurcation. Criteria for Assigning % of Stenosis / Diameter reduction (Estimation based on the indirect measurements of the internal carotid artery velocities (ICA PSV). 1. Normal (no stenosis)=ICA PSV < 125 cm/s: ratio < 2.0: ICA EDV<40 cm/s. 2. Less than 50% stenosis=ICA PSV < 125 cm/s: ratio < 2.0: ICA EDV<40 cm/s. 3. 50 to 69% stenosis=ICA PSV of 125 to 230 cm/s: ration 2.0 ? 4.0: ICA EDV 40-100 cm/s. 4. Greater than 70% stenosis to near occlusion= ICA PSV > 230 cm/s: ratio > 4.0: ICA EDV > 100 cm/s. 5. Near occlusion= ICA PSV velocities may be low or undetectable: variable ratio and ICA EDV. 6. Total occlusion=unable to detect flow. [facility], , 09/12/2024 4:22 PM
--- NOTE | 2024-09-12 16:38 | P.PN ---
Subjective Progress Note Date: 09/12/24 Hospital course: Patient is a pleasant 78-year-old male with a past medical history of CAD status post CABG x 3, valvular heart disease with bioprosthetic aortic valve replacement, paroxysmal atrial fibrillation on anticoagulation with Eliquis, hypertension, hyperlipidemia, type II kte-zkivmwm-mjvthciah diabetes mellitus, recurrent TIAs and a previous CVA. He presented to the emergency department on 09/11/2024 with a chief complaint of altered mental status with reports of confusion and difficulties doing simple basic activities such as using his phone. Patient also reports experiencing some slurred speech and a severe headache. Patient reported experiencing multiple TIAs over the past week approximately 4 but states this 1 lasted longer than any of the others so he was concerned and came to the emergency department. On arrival to our facility, patient underwent evaluation in the emergency department. Vital signs upon arrival show blood pressure of 210/99, heart rate 90, respiratory rate 20, temp 97.3 F, and SpO2 of 98% on room air. Point of care glucose upon arrival 198. EKG completed showing normal sinus rhythm at 76 bpm with occasional PVCs and a right bundle branch block. Chest x-ray completed negative for acute cardiopulmonary process showing chronic interstitial prominence. CT brain negative for acute process showing small remote lacunar infarct in left basal ganglia. Labs completed and reviewed. CBC unremarkable. Coagulation profile normal findings. BMP showing sodium 134, chloride 94, BUN of 29, creatinine 1.34, and GFR of 50 with baseline creatinine around 1.4. Liver profile unremarkable. Creatinine kidneys 53. Troponin was negative at 0.012. Patient admitted under our services with consultation to neurology. Physical exam: Patient seen and fully evaluated at bedside this morning. wireless cellular technician also at bedside preparing to do echocardiogram at this time. Patient currently reports near resolution of all previous symptoms stating he is approximately 95% back to baseline at this time. He continues to report mild headache and does admit to experiencing some sinus congestion and pressure over the past week. Vital signs reviewed and stable. General: Nontoxic, no distress and appears stated age. Derm: Skin warm and dry, normal coloration for ethnicity. Head: Atraumatic, normocephalic and symmetric. Eyes: EOM's intact, no lid lag, and anicteric sclera Mouth: no lip lesions, mucus membranes moist Cardiovascular: regular rate and rhythm with normal S1S2, systolic murmur, positive posterior tibial pulses bilaterally, and cap refill < 2 seconds. Lungs: Respirations even, regular, and unlabored on room air. Lungs CTA bilaterally, no rhonchi, no rales, no wheezing, and no accessory muscle usage. Abdominal: soft, nontender to palpation, no guarding, no appreciable organomegaly Ext: ROM intact. No gross muscle atrophy, no edema, no contractures Neuro: Speech clear, face symmetrical and CN II-XII grossly intact with no noted focal neuro deficits Psych: Alert and oriented to person, place, time, and situation. Appropriate and pleasant affect. Assessment and Plan of Care: Altered mental status with transient episode of cognitive and speech impairment, rule out TIA versus CVA History of recurrent TIAs History of CVA -Consult neurology -MRI brain without contrast -Echocardiogram -TSH normal findings at 2.180, Lipid profile showing elevated triglycerides of 231 and elevated VLDL of 46.20. Hgb A1c elevated at 9.6%. -NIH stroke scale with neuro checks every 4 hours and as needed -Continue aspirin 81 mg daily, atorvastatin 40 mg nightly, and Eliquis 5 mg twice daily. -PT/OT consult -Fall precautions and provide pt with assistance as needed. Acute on chronic sinusitis -Patient started on Augmentin 500/125 mg twice daily x 10 days. CAD status post CABG x 3 Hypertensive urgency upon arrival Valvular heart disease status post bioprosthetic aortic valve replacement Paroxysmal atrial fibrillation Hyperlipidemia -Continue daily medication regimen with aspirin 81 mg daily, Eliquis 5 mg twice daily, atorvastatin 40 mg nightly, and metoprolol 12.5 mg twice daily. Type II xyn-hsfceuy-uswgeaaiu diabetes mellitus with hyperglycemia -Hemoglobin A1c resulting at 9.6%. Patient admits to poorly managed diabetes, acknowledging due to his own dietary choices over the past month. -Had long discussion and educated patient on the importance of optimizing control of its diabetes. At this time metformin held and patient placed on glycemic protocol with NovoLog sliding scale. Data and imaging reviewed: Morning labs reviewed. CBC unremarkable. BMP showing sodium 135 and chloride 97 with BUN of 32, creatinine 1.39 and GFR 48 at baseline. Blood glucose 269. Hemoglobin A1c was elevated at 9.6%. Liver profile unremarkable. Lipid profile showing elevated triglycerides of 231.00 and VLDL of 46.20. TSH was normal findings at 2.180. Vital signs reviewed. Blood pressure 126/72, heart rate 58, respiratory rate 16, and SpO2 of 95% on room air. CODE STATUS: Full code DVT prophylaxis: Eliquis Anticipated discharge date: Pending clinical course, likely 24 to [address]: Home Patient was seen independently by Nurse Pracitioner. This document was prepared using [employer] dictation software. Please allow for errors in licensed practical nurse instructor, while rare they do occur. Steven Burks PROMOTIONS ASSISTANT rendered care for this patient independently, reviewed the findings and plan as documented in the note above and agree with plan. I did not physically speak with or examine the patient on this date. Objective - Vital Signs Vital signs: Vital Signs Temp 97.3 F L 09/11/24 12:08 Pulse 58 L 09/12/24 07:00 Resp 16 09/12/24 07:00 BP 126/72 09/12/24 07:00 Pulse Ox 95 09/12/24 07:00 FiO2 Intake & Output 09/11/24 09/12/24 09/12/24 18:59 06:59 18:59 Weight 81.647 kg - Labs CBC & Chem 7: 09/12/24 05:41 09/12/24 05:41 Labs: Abnormal Lab Results - Last 24 Hours (Table) 09/11/24 09/11/24 09/11/24 Range/Units 12:08 13:00 17:40 Sodium 134 L (137-145) mmol/L Chloride 94 L (98-107) mmol/L BUN 29 H (9-20) mg/dL Creatinine 1.34 H (0.66-1.25) mg/dL Glucose 197 H (74-99) mg/dL POC Glucose (mg/dL) 198 H 295 H (70-110) mg/dL Hemoglobin A1c (<=6.0) % Creatine Kinase 53 L (55-170) U/L 09/11/24 09/12/24 09/12/24 Range/Units 20:31 05:41 05:41 Sodium 135 L (137-145) mmol/L Chloride 97 L (98-107) mmol/L BUN 32 H (9-20) mg/dL Creatinine 1.39 H (0.66-1.25) mg/dL Glucose 269 H (74-99) mg/dL POC Glucose (mg/dL) 199 H (70-110) mg/dL Hemoglobin A1c 9.6 H (<=6.0) % Creatine Kinase (55-170) U/L 09/12/24 Range/Units 06:59 Sodium (137-145) mmol/L Chloride (98-107) mmol/L BUN (9-20) mg/dL Creatinine (0.66-1.25) mg/dL Glucose (74-99) mg/dL POC Glucose (mg/dL) 242 H (70-110) mg/dL Hemoglobin A1c (<=6.0) % Creatine Kinase (55-170) U/L
[2024-09-12 17:50] LABS: Glucose,Whole Blood 217 mg/dL (70-110)
[2024-09-12 20:01] LABS: Glucose,Whole Blood 134 mg/dL (70-110)
--- NOTE | 2024-09-12 20:33 | CT ---
EXAMINATION TYPE: CODE STROKE: CT brain wo contr DATE OF EXAM: 09/12/2024 COMPARISON: 09/11/2024 CLINICAL INDICATION: Male, 78 years old with history of code stroke; PHH, CODE STROKE Facial droop, s lurred speech, aphasia... mini strokes the last week. TECHNIQUE: CT scan of the head is performed without contrast. CT DLP: 2220.[address] CTDI: mGy Automated exposure control for dose reduction was used. FINDINGS: There is no acute intracranial hemorrhage or midline shift identified. There is diffuse v entricular and sulcal prominence consistent with diffuse age-related cerebral atrophy. Small lacunar infarct left vallejo radiata. There is low-attenuation in the periventricular white matter consistent with chronic small vessel ischemic change. The globes are intact and the visualized sinuses are rica r. IMPRESSION: No acute intracranial hemorrhage or midline shift. There is diffuse age-related cerebra l atrophy and chronic small vessel ischemic change noted. [facility], , 09/12/2024 8:31 PM
--- NOTE | 2024-09-12 20:53 | CT ---
EXAMINATION TYPE: CODE STROKE: CTA head neck DATE OF EXAM: 09/12/2024 8:39 PM COMPARISON: None. CLINICAL INDICATION: Male, 78 years old with history of code stroke, CODE STROKE Facial droop, slurre d speech, aphasia... mini strokes the last week., TECHNIQUE: Axially acquired helical CT Angiogram of the Neck was obtained with and without contrast. 3-D images were not provided. Technologist's note states "Unable to log into ISP For 3Ds... 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 (None if empty) CT DLP: mGycm, Automated exposure control for dose reduction was used. FINDINGS: NECK: Right carotid system: Mild plaque is seen of the right common carotid artery. There is mild plaque a lso noted at the carotid bulb and proximal ICA. No significant diameter reduction. ECA is patent. Right vertebral artery appears unremarkable. Left carotid system: Mild plaque is seen of the left common carotid artery. There is mild plaque als o noted at the carotid bulb and proximal ICA. No significant diameter reduction. ECA is patent. Lef t vertebral artery appears unremarkable. BRAIN: Vertebrobasilar system as well as intracranial portions of the internal carotid arteries and their ma ana [place] tributaries are patent. I do not see evidence for sizable aneurysm or vascular malformation. Pl ease note MRI provides greater sensitivity and specificity. Visualized brain appears grossly unremar kable. IMPRESSION: 1. Limited study given lack of 3-D images. 2. No evidence for hemodynamically significant stenosis at the carotid bifurcations. No significant diameter reduction to account for the patient's symptoms. 3. Limited evaluation of the intracranial vasculature fails to demonstrate evidence for obvious high -grade stenosis or aneurysm. [facility], , 09/12/2024 8:51 PM
[2024-09-12 21:53] LABS: Basophils # (A) 0.1 k/uL (0-0.2); Basophils % (A) 1 %; Eosinophils # (A) 0.2 k/uL (0-0.7); Eosinophils % (A) 2 %; HCT 40.5 % (39.0-53.0); HGB 12.9 gm/dL (13.0-17.5); Lymphocytes # (A) 1.4 k/uL (1.0-4.8); Lymphocytes % (A) 20 %; MCH 30.9 pg (25.0-35.0); MCHC 31.9 g/dL (31.0-37.0); MCV 96.9 fL (80.0-100.0); Mean Platelet Volume 7.8; Monocytes # (A) 0.5 k/uL (0-1.0); Monocytes % (A) 7 %; Neutrophils # (A) 4.6 k/uL (1.3-7.7); Neutrophils % (A) 67 %; Platelet Count 183 k/uL (150-450); RBC 4.18 m/uL (4.30-5.90); RDW 12.8 % (11.5-15.5); WBC 6.9 k/uL (3.8-10.6)
[2024-09-12 21:55] LABS: INR 1.1 (<1.2); Prothrombin Time 11.9 sec (10.0-12.5)
[2024-09-12 22:21] LABS: ALT 16 U/L (4-49); AST 19 U/L (17-59); African American GFR (CKD) 58 (>60 ml/min/1.73 sqM); Alkaline Phosphatase 64 U/L (38-126); Anion Gap 11 mmol/L; Blood Urea Nitrogen 34 mg/dL (9-20); Calcium 9.5 mg/dL (8.4-10.2); Carbon Dioxide 27 mmol/L (22-30); Chloride 98 mmol/L (98-107); Glucose 117 mg/dL (74-99); Non-African American GFR(CKD) 50 (>60 ml/min/1.73 sqM); Potassium 4.1 mmol/L (3.5-5.1); Sodium 136 mmol/L (137-145); Total Bilirubin 0.6 mg/dL (0.2-1.3)
[2024-09-13 06:08] LABS: Glucose,Whole Blood 189 mg/dL (70-110)
--- NOTE | 2024-09-13 07:08 | P.CNNES ---
History of Present Illness Consult date: 09/12/24 Requesting physician: Edil Carlton Reason for Consult: Strokelike symptoms History of Present Illness: Patient is a 78-year-old right-handed male came to the hospital yesterday at 12:04 PM for strokelike symptoms. Patient developed strokelike symptoms yesterday when he woke up at 5:30 AM feeling "funny". He couldn't think, couldn't type simple words on the phone. He spoke to his and said something was wrong. He waited and see if it symptoms will go away. As the symptoms persisted, he decided come to the ER. His last known well was 10 PM the night prior before he went to bed when he was feeling fine. At present his symptoms are about 98% gone. He states he is now fully recovered. Vital signs on arrival blood pressure at 110/99, pulse rate 90 temperature nine 7.3. Repeat blood pressure 197/103. Blood test shows normal CBC, sodium 135 potassium 4.3, BUN 32, creatinine 1.39. Hepatic panel is normal. EKG showed sinus rhythm with first-degree AV block. Right bundle branch block. Chest x- ray showed chronic changes without acute pulmonary process. Patient had a carotid Doppler on 07/19/2021 which revealed right greater than left atherosclerotic changes without hemodynamically significant stenosis seen in the either ICA. Antegrade flow in both vertebral arteries. Home medications include aspirin 81 mg, Eliquis 5 mg twice daily, metformin 1000 g daily metoprolol, Lipitor 40 mg. Patient states he had history of TIA 2 times in the past and both of them occurred 2 years ago, within a few months apart. Each of them lasted for about 3 hours. No history of seizures. He denies any tobacco or alcohol use. He does have history of diabetes for 20 years. Patient was not a candidate for TNK because he woke up with the symptoms. Review of Systems All pertinent positive and negative review of systems mentioned in HPI. Otherwise unremarkable. Past Medical History Past Medical History: Coronary Artery Disease (CAD), Diabetes Mellitus, Hyperlipidemia, Hypertension, Myocardial Infarction ([place]) Additional Past Medical History / Comment(s): Pt recently admitted to [facility] on 07/16/21 with NSTEMI, new cardiomyopathy, acute systolic chf, 1st degree heart block/paroxysmal 2 degree and 3rd degree heart block, hypotension. Pt had cardiac cath/DELVIS/ CABG 3 vessel with aortic valve replacement. Last Myocardial Infarction Date:: 07/16/21 History of Any Multi-Drug Resistant Organisms: None Reported Past Surgical History: Cardiac Valve Replacement, Heart Catheterization With Stent, Hernia Repair Additional Past Surgical History / Comment(s): Right knee surgery CUT OUT CARTILAGE, hernia repair Past Anesthesia/Blood Transfusion Reactions: No Reported Reaction Date of Last Stent Placement:: 07/16/21 Past Psychological History: No Psychological Hx Reported Smoking Status: Never smoker Past Alcohol Use History: None Reported Past Drug Use History: None Reported - Past Family History Father Additional Family Medical History / Comment(s): AT AGE 84-CANCER OF LARNYX (SMOKER), CARDIAC PROBLEMS Mother Family Medical History: Diabetes Mellitus Additional Family Medical History / Comment(s): AT AGE 83- HAD A PITUITARY TUMOR REMOVED HAD SON CRISIS Sister(s) Family Medical History: Coronary Artery Disease (CAD) Additional Family Medical History / Comment(s): had CABG in her 70s Medications and Allergies Home Medications Medication Instructions Recorded Confirmed Type Aspirin 81 mg PO DAILY #30 chewable 02/06/18 09/11/24 Rx metFORMIN HCL [Glucophage] 1,000 mg PO BID 07/16/21 09/11/24 History Apixaban [Eliquis] 5 mg PO BID #60 tab 08/02/21 09/11/24 Rx Atorvastatin Calcium [Lipitor] 40 mg PO HS 01/20/22 09/11/24 History Metoprolol Tartrate [Lopressor] 12.5 mg PO BID 01/20/22 09/11/24 History Furosemide [Lasix] 20 mg PO DAILY 09/11/24 09/11/24 History HYDROcodone/APAP 10-325MG [[place] 1 tab PO BID PRN 09/11/24 09/11/24 History 10-325] Allergies Allergy/AdvReac Type Severity Reaction Status Date / Time No Known Allergies Allergy Verified 09/11/24 14:06 Physical Examination - Vital Signs Vital Signs: Vital Signs Temp Pulse Resp BP Pulse Ox 09/12/24 13:00 80 18 95 09/12/24 11:57 97.5 F L 65 18 119/82 97 09/12/24 09:11 70 18 166/81 96 09/12/24 08:27 97.9 F 67 18 150/78 97 09/12/24 08:00 71 18 98 09/12/24 07:27 73 18 134/98 97 09/12/24 07:00 58 L 16 126/72 95 09/12/24 05:41 93 18 120/64 97 09/12/24 03:00 62 18 122/95 97 09/11/24 23:00 80 18 147/83 09/11/24 19:05 68 18 127/69 09/11/24 16:40 109 H 20 131/77 97 Patient is an elderly male, very pleasant, in no acute distress. Patient is alert awake oriented to time place and person. Speech and language functions are normal. Patient can name and repeat very well. No aphasia or dysarthria. Attention, concentration and fund of knowledge is adequate. On cranial nerve examination, pupils are equal, round and reacting to light, visual martins are full on confrontation, with no neglect on double simultaneous stimulation. Extraocular muscles are intact with no nystagmus. Face is symmetric, tongue protrudes to the midline. Palatal elevation and sensation normal, hearing and shoulder shrug normal, facial sensation normal. On muscle strength testing, there is no pronator drift and the strength is normal in arms and legs distally and proximally. Deep tendon reflexes are symmetric diminished and plantars downgoing. Sensory to touch is equal with no neglect on double simultaneous stimulation. Cerebellar function showed no ataxia for [id number] testing. No dysdiadochokinesia. No ataxia for [id number] testing on either side. Tone and bulk of muscles normal. Gait deferred.. On general examination, there is no carotid bruit or murmur, S1-S2 audible. Chest is clear on consultation. Abdomen is soft nontender. No organomegaly, bowel sounds present. Peripheral pulses are present. No peripheral edema. Results - Laboratory Findings CBC and BMP: 09/12/24 21:34 09/12/24 21:34 Abnormal Lab Findings: Abnormal Labs 09/11/24 09/11/24 09/11/24 12:08 13:00 17:40 Sodium 134 L Chloride 94 L BUN 29 H Creatinine 1.34 H Glucose 197 H POC Glucose (mg/dL) 198 H 295 H Hemoglobin A1c Creatine Kinase 53 L Triglycerides VLDL Cholesterol, Calc 09/11/24 09/12/24 09/12/24 20:31 05:41 05:41 Sodium 135 L Chloride 97 L BUN 32 H Creatinine 1.39 H Glucose 269 H POC Glucose (mg/dL) 199 H Hemoglobin A1c 9.6 H Creatine Kinase Triglycerides 231.00 H VLDL Cholesterol, Calc 46.20 H 09/12/24 09/12/24 09/12/24 06:59 09:11 10:07 Sodium Chloride BUN Creatinine Glucose POC Glucose (mg/dL) 242 H 228 H 231 H Hemoglobin A1c Creatine Kinase Triglycerides VLDL Cholesterol, Calc 09/12/24 12:37 Sodium Chloride BUN Creatinine Glucose POC Glucose (mg/dL) 214 H Hemoglobin A1c Creatine Kinase Triglycerides VLDL Cholesterol, Calc Assessment and Plan Assessment: * Probable TIA manifesting with speech difficulty, that resolved in about elicia ral hours. At present all symptoms have resolved. Current NIH stroke scale is 0. * Diabetes * Hypertension * Hyperlipidemia * Coronary artery disease * History of TIA 2 in the past Plan: MRI of the brain without contrast, revealed no evidence for a recent infarct. There is persistent moderate diffuse cerebral atrophy. Bilateral maxillary sinus disease with acute findings suspected on the right redemonstrated. 2-D echo revealed mildly reduced LV systolic function with EF 45%. Severely increased left atrial diameter. Mild MR. Normally functioning prosthetic aortic valve with peak gradient of 19 mmHg. Carotid Doppler, was performed. Revealed 50-69% stenosis of the proximal right ICA. Less than 50% stenosis of the carotid bifurcation. Antegrade flow in both vertebral arteries. Recommend vascular surgery consultation. Fasting a.m. lipid panel cholesterol 193, LDL 100, HDL 46 and triglycerides 231. Continue Lipitor 40 mg daily. Hemoglobin A1c 9.6. Recommend optimize control of diabetes to target A1c <7.0. Optimize control of blood pressure to normotensive level. Avoid hypotension. Continue Eliquis 5 mg twice daily and aspirin 81 mg daily. Neuro checks as per protocol. Telemetry monitoring rule out any arrhythmia PT, OT, speech therapy DVT prophylaxis: Patient on Eliquis. Dr. Facundo Wong to resume neurology service in the morning. Thank you for the consult. Addendum: CTA of the head and neck revealed no evidence for hemodynamically significant stenosis of the carotid bifurcations. No significant diameter reduction to call for the patient's symptoms. Limited evaluation of the intracranial vasculature fails to demonstrate evidence for obvious high-grade stenosis or aneurysm. Neurologically clear for discharge.
[2024-09-13 08:07] LABS: HCT 38.6 % (39.0-53.0); HGB 12.3 gm/dL (13.0-17.5); MCH 30.9 pg (25.0-35.0); MCHC 31.7 g/dL (31.0-37.0); MCV 97.4 fL (80.0-100.0); Mean Platelet Volume 8.1; Platelet Count 172 k/uL (150-450); RBC 3.97 m/uL (4.30-5.90); RDW 12.9 % (11.5-15.5)
[2024-09-13 08:29] LABS: ALT 15 U/L (4-49); AST 18 U/L (17-59); African American GFR (CKD) 61 (>60 ml/min/1.73 sqM); Albumin 3.7 g/dL (3.5-5.0); Alkaline Phosphatase 60 U/L (38-126); Anion Gap 8 mmol/L; Blood Urea Nitrogen 30 mg/dL (9-20); Carbon Dioxide 26 mmol/L (22-30); Chloride 100 mmol/L (98-107); Glucose 170 mg/dL (74-99); Magnesium 1.9 mg/dL (1.6-2.3); Non-African American GFR(CKD) 53 (>60 ml/min/1.73 sqM); Potassium 4.2 mmol/L (3.5-5.1); Sodium 134 mmol/L (137-145); Total Bilirubin 0.8 mg/dL (0.2-1.3); Total Protein 6.3 g/dL (6.3-8.2)
[2024-09-13 11:17] LABS: Glucose,Whole Blood 211 mg/dL (70-110)
--- NOTE | 2024-09-13 12:23 | P.GSCN ---
History of Present Illness Consult date: 09/13/24 Reason for Consult: Carotid stenosis. History of present illness: Patient is an 78-year-old male who experienced "fuzziness" upon arising appro ximately 5:30 in the morning. He felt disoriented and could not get his bearings. This spurred him to present to the emergency room. His symptoms did resolve. This was his first and only event. He did speak to his via the phone. His symptoms have completely resolved. He is a never smoker. Past Medical History Past Medical History: Coronary Artery Disease (CAD), Diabetes Mellitus, Hyperlipidemia, Hypertension, Myocardial Infarction ([place]) Additional Past Medical History / Comment(s): Pt recently admitted to [facility] on 07/16/21 with NSTEMI, new cardiomyopathy, acute systolic chf, 1st degree heart block/paroxysmal 2 degree and 3rd degree heart block, hypotension. Pt had cardiac cath/DELVIS/ CABG 3 vessel with aortic valve replacement. Last Myocardial Infarction Date:: 07/16/21 History of Any Multi-Drug Resistant Organisms: None Reported Past Surgical History: Cardiac Valve Replacement, Heart Catheterization With Stent, Hernia Repair Additional Past Surgical History / Comment(s): Right knee surgery CUT OUT CARTILAGE, hernia repair Past Anesthesia/Blood Transfusion Reactions: No Reported Reaction Date of Last Stent Placement:: 07/16/21 Past Psychological History: No Psychological Hx Reported Smoking Status: Never smoker Past Alcohol Use History: None Reported Past Drug Use History: None Reported - Past Family History Father Additional Family Medical History / Comment(s): AT AGE 84-CANCER OF LARNYX (SMOKER), CARDIAC PROBLEMS Mother Family Medical History: Diabetes Mellitus Additional Family Medical History / Comment(s): AT AGE 83- HAD A PITU ITARY TUMOR REMOVED HAD SON CRISIS Sister(s) Family Medical History: Coronary Artery Disease (CAD) Additional Family Medical History / Comment(s): had CABG in her 70s Medications and Allergies Home Medications Medication Instructions Recorded Confirmed Type Aspirin 81 mg PO DAILY #30 chewable 02/06/18 09/11/24 Rx metFORMIN HCL [Glucophage] 1,000 mg PO BID 07/16/21 09/11/24 History Apixaban [Eliquis] 5 mg PO BID #60 tab 08/02/21 09/11/24 Rx Atorvastatin Calcium [Lipitor] 40 mg PO HS 01/20/22 09/11/24 History Metoprolol Tartrate [Lopressor] 12.5 mg PO BID 01/20/22 09/11/24 History Furosemide [Lasix] 20 mg PO DAILY 09/11/24 09/11/24 History HYDROcodone/APAP 10-325MG [[place] 1 tab PO BID PRN 09/11/24 09/11/24 History 10-325] Allergies Allergy/AdvReac Type Severity Reaction Status Date / Time No Known Allergies Allergy Verified 09/11/24 14:06 Surgical - Exam Osteopathic Statement: *. No significant issues noted on an osteopathic structural exam other than those noted in the History and Physical/Consult. Vital Signs Temp Pulse Resp BP Pulse Ox 97.3 F L 90 20 210/99 98 09/11/24 12:08 09/11/24 12:08 09/11/24 12:08 09/11/24 12:08 09/11/24 12:08 Patient Seen Date: 09/13/24 Patient Seen Time: 11:00 Patient is awake, alert and in no apparent distress. He is talking on the phone and was able to sit up from a laying position without issue. Cranial nerves II through XII are grossly intact. Equal motor strength is noted in the upper lower extremities bilaterally. No carotid bruit is noted. Abdomen is soft and benign. Legs are free of edema and are nontender to palpation. I reviewed both the carotid duplex and CTA imaging. I do not feel that there is any significant stenosis demonstrated on either study. As such I do not believe any surgical intervention is warranted outside of follow-up surveillance. Currently the patient is on appropriate medical therapy. This was discussed in great detail with the patient and all questions were answered patient's satisfaction. Results - Labs 09/13/24 07:03 09/13/24 07:03 Abnormal Lab Results - Last 24 Hours (Table) 09/12/24 09/12/24 09/12/24 Range/Units 12:37 17:49 19:59 RBC (4.30-5.90) m/uL Hgb (13.0-17.5) gm/dL Hct (39.0-53.0) % Sodium (137-145) mmol/L BUN (9-20) mg/dL Creatinine (0.66-1.25) mg/dL Glucose (74-99) mg/dL POC Glucose (mg/dL) 214 H 217 H 134 H (70-110) mg/dL 09/12/24 09/12/24 09/13/24 Range/Units 21:34 21:34 06:06 RBC 4.18 L (4.30-5.90) m/uL Hgb 12.9 L (13.0-17.5) gm/dL Hct (39.0-53.0) % Sodium 136 L (137-145) mmol/L BUN 34 H (9-20) mg/dL Creatinine 1.34 H (0.66-1.25) mg/dL Glucose 117 H (74-99) mg/dL POC Glucose (mg/dL) 189 H (70-110) mg/dL 09/13/24 09/13/24 09/13/24 Range/Units 07:03 07:03 11:16 RBC 3.97 L (4.30-5.90) m/uL Hgb 12.3 L (13.0-17.5) gm/dL Hct 38.6 L (39.0-53.0) % Sodium 134 L (137-145) mmol/L BUN 30 H (9-20) mg/dL Creatinine 1.28 H (0.66-1.25) mg/dL Glucose 170 H (74-99) mg/dL POC Glucose (mg/dL) 211 H (70-110) mg/dL Diabetes panel 09/12/24 09/13/24 Range/Units 21:34 07:03 Sodium 136 L 134 L (137-145) mmol/L Potassium 4.1 4.2 (3.5-5.1) mmol/L Chloride 98 100 (98-107) mmol/L Carbon Dioxide 27 26 (22-30) mmol/L BUN 34 H 30 H (9-20) mg/dL Creatinine 1.34 H 1.28 H (0.66-1.25) mg/dL Glucose 117 H 170 H (74-99) mg/dL Calcium 9.5 9.0 (8.4-10.2) mg/dL AST 19 18 (17-59) U/L ALT 16 15 (4-49) U/L Alkaline Phosphatase 64 60 (38-126) U/L Total Protein 7.0 6.3 (6.3-8.2) g/dL Albumin 4.0 3.7 (3.5-5.0) g/dL Calcium panel 09/12/24 09/13/24 Range/Units 21:34 07:03 Calcium 9.5 9.0 (8.4-10.2) mg/dL Albumin 4.0 3.7 (3.5-5.0) g/dL Pituitary panel 09/12/24 09/13/24 Range/Units 21:34 07:03 Sodium 136 L 134 L (137-145) mmol/L Potassium 4.1 4.2 (3.5-5.1) mmol/L Chloride 98 100 (98-107) mmol/L Carbon Dioxide 27 26 (22-30) mmol/L BUN 34 H 30 H (9-20) mg/dL Creatinine 1.34 H 1.28 H (0.66-1.25) mg/dL Glucose 117 H 170 H (74-99) mg/dL Calcium 9.5 9.0 (8.4-10.2) mg/dL Adrenal panel 09/12/24 09/13/24 Range/Units 21:34 07:03 Sodium 136 L 134 L (137-145) mmol/L Potassium 4.1 4.2 (3.5-5.1) mmol/L Chloride 98 100 (98-107) mmol/L Carbon Dioxide 27 26 (22-30) mmol/L BUN 34 H 30 H (9-20) mg/dL Creatinine 1.34 H 1.28 H (0.66-1.25) mg/dL Glucose 117 H 170 H (74-99) mg/dL Calcium 9.5 9.0 (8.4-10.2) mg/dL Total Bilirubin 0.6 0.8 (0.2-1.3) mg/dL AST 19 18 (17-59) U/L ALT 16 15 (4-49) U/L Alkaline Phosphatase 64 60 (38-126) U/L Total Protein 7.0 6.3 (6.3-8.2) g/dL Albumin 4.0 3.7 (3.5-5.0) g/dL - Imaging Additional studies: Carotid duplex and CTA images reviewed. Assessment and Plan Assessment: 1: Nonhemodynamically severe carotid stenosis. 2: Possible transient ischemic attack. 3: Coronary artery disease/status post coronary artery bypass grafting. Plan: 1: Agree with continued medical therapy. 2: Would like to see the patient in the office in 6 or so months for follow-up carotid duplex study. 3: Surgically stable for discharge. Time with Patient: Greater than 30
--- NOTE | 2024-09-13 12:51 | P.PN ---
Subjective Progress Note Date: 09/13/24 Hospital course: Patient is a pleasant 78-year-old male with a past medical history of CAD status post CABG x 3, valvular heart disease with bioprosthetic aortic valve replacement, paroxysmal atrial fibrillation on anticoagulation with Eliquis, hypertension, hyperlipidemia, type II [id number] diabetes mellitus, recurrent TIAs and a previous CVA. He presented to the emergency department on 09/11/2024 with a chief complaint of altered mental status with reports of confusion and difficulties doing simple basic activities such as using his phone. Patient also reports experiencing some slurred speech and a severe headache. Patient reported experiencing multiple TIAs over the past week approximately 4 but states this 1 lasted longer than any of the others so he was concerned and came to the emergency department. On arrival to our facility, geraldine srivastava underwent evaluation in the emergency department. Vital signs upon arrival show blood pressure of 210/99, heart rate 90, respiratory rate 20, temp 97.3 F, and SpO2 of 98% on room air. Point of care glucose upon arrival 198. EKG completed showing normal sinus rhythm at 76 bpm with occasional PVCs and a right bundle branch block. Chest x-ray completed negative for acute cardiopulmonary process showing chronic interstitial prominence. CT brain negative for acute process showing small remote lacunar infarct in left basal ganglia. Labs completed and reviewed. CBC unremarkable. Coagulation profile normal findings. BMP showing sodium 134, chloride 94, BUN of 29, creatinine 1.34, and GFR of 50 with baseline creatinine around 1.4. Liver profile unremarkable. Creatinine kidneys 53. Troponin was negative at 0.012. Patient admitted under our services with consultation to neurology. CTA head was completed showing limited evaluation of the intracranial vasculature but fails to demonstrate evidence for obvious high-grade stenosis or aneurysm. Carotid Doppler showing right sided car otid stenosis of 50 to 69% at the proximal right internal carotid artery with left side less than 50% stenosis. MRI brain completed negative for evidence of recent infarct showing persistent moderate diffuse cerebral atrophy and bilateral maxillary sinus disease with acute finding suspected for right side sinusitis showing dependent fluid on right. Echocardiogram was completed showing a reduced EF of 40 to 45% with severely increased left atrial diameter and left atrial volume, mild tricuspid regurgitation, moderate pulmonic regurgitation and mildly dilated proximal ascending aorta with bioprosthetic aortic valve stable and functioning normally with acceptable gradients and no reported right to left shunting at the interatrial level. Vascular surgery was consulted secondary to right-sided carotid stenosis and recurrent TIAs. Overnight on 09/12/2024 patient again found to have slurred speech and expressive aphasia with right-sided facial droop and a code stroke was called. NIH at this time was 3. CT brain completed showing no acute intercranial abnormality revealing diffuse age-rela ramiro cerebral atrophy and chronic small vessel ischemic changes. CTA head and neck again completed showing limited evaluation of the intracranial vasculature but fails to demonstrate evidence for obvious high-grade stenosis or aneurysm. Physical exam: Patient seen and fully evaluated at bedside this morning. Patient resting comfortably in bed this morning, currently denies having any pain or complaints at this time. Notified by RN that patient was found yesterday evening around 8 PM to have slurred speech and expressive aphasia with right-sided facial droop and a code stroke was again called on patient. On onset of symptoms NIH score was 3 and it was reported that the symptoms lasted approximately 60 minutes prior to seeing improvement with repeat NIH at 9 PM being 2 and all symptoms resolving approximately 2 hours after onset. Vital signs reviewed and stable. General: Nontoxic, no distress and appears stated age. Derm: Skin warm and dry, normal coloration for ethnicity. Head: Atraumatic, normocephalic and symmetric. Eyes: EOM's intact, no lid lag, and anicteric sclera Mouth: no lip lesions, mucus membranes moist Cardiovascular: regular rate and rhythm with normal S1S2, systolic murmur, positive posterior tibial pulses bilaterally, and cap refill < 2 seconds. Lungs: Respirations even, regular, and unlabored on room air. Lungs CTA bilaterally, no rhonchi, no rales, no wheezing, and no accessory muscle usage. Abdominal: soft, nontender to palpation, no guarding, no appreciable organomegaly Ext: ROM intact. No gross muscle atrophy, no edema, no contractures Neuro: Speech clear, face symmetrical and CN II-XII grossly intact with no noted focal neuro deficits Psych: Alert and oriented to person, place, time, and situation. Appropriate and pleasant affect. Assessment and Plan of Care: Altered mental status with transient episode of cognitive and speech impairment, rule out TIA versus CVA History of recurrent recent TIAs Right-sided carotid stenosis, 50 to 69% History of CVA -Neurology following, recommended consult to vascular surgery for carotid stenosis and recurrent TIAs. -Notified by RN that patient was found yesterday evening around 8 PM to again have slurred speech and expressive aphasia with right-sided facial droop and a code stroke was called on patient. On onset of symptoms NIH score was 3 and it was reported that the symptoms lasted approximately 60 minutes prior to seeing improvement with repeat NIH at 9 PM being 2 and all symptoms resolving ap proximately 2 hours after onset. -TSH normal findings at 2.180, Lipid profile showing elevated triglycerides of 231 and elevated VLDL of 46.20. Hgb A1c elevated at 9.6%. -Continue NIH stroke scale with neuro checks every 4 hours and as needed -Continue aspirin 81 mg daily, atorvastatin 40 mg nightly, and Eliquis 5 mg twice daily. -PT/OT consult -Fall precautions and provide pt with assistance as needed. Acute on chronic sinusitis -Patient started on Augmentin 500/125 mg twice daily x 10 days (Day 08/18) CAD status post CABG x 3 Hypertensive urgency upon arrival Valvular heart disease status post bioprosthetic aortic valve replacement Paroxysmal atrial fibrillation Hyperlipidemia -Continue daily medication regimen with aspirin 81 mg daily, Eliquis 5 mg twice daily, atorvastatin 40 mg nightly, and metoprolol 12.5 mg twice daily. Type II [id number] diabetes mellitus with hyperglycemia -Hemoglobin A1c resulting at 9.6%. Patient admits to poorly managed diabetes, acknowledging due to his own dietary choices over the past month. -Had long discussion and educated patient on the importance of optimizing control of its diabetes. At this time metformin held and patient placed on glycemic protocol with NovoLog sliding scale. Data and imaging reviewed: Morning labs reviewed. CBC showing normocytic anemia with hemoglobin of 12.3. BMP showing hyponatremia with sodium of 134 and stable for continued elevated renal function with BUN of 30, creatinine 1.28, GFR 53. Blood glucose was 170. Magnesium 1.9. Vital signs reviewed. Blood pressure 160/86, heart rate 57, respiratory rate 14, temp 98.0 F, and SpO2 of 98% on room air. CTA head was completed showing limited evaluation of the intracranial va sculature but fails to demonstrate evidence for obvious high-grade stenosis or aneurysm. Carotid Doppler showing right sided carotid stenosis of 50 to 69% at the proximal right internal carotid artery with left side less than 50% stenosis MRI brain completed negative for evidence of recent infarct showing persistent moderate diffuse cerebral atrophy and bilateral maxillary sinus disease with acu te finding suspected for right side sinusitis showing dependent fluid on right. Echocardiogram was completed showing a reduced EF of 40 to 45% with severely increased left atrial diameter and left atrial volume, mild tricuspid regurgitation, moderate pulmonic regurgitation and mildly dilated proximal ascending aorta with bioprosthetic aortic valve stable and functioning normally with acceptable gradients and no reported right to left shunting at the interatrial level. CODE STATUS: Full code DVT prophylaxis: Eliquis Anticipated discharge date: Pending evaluation and recommendations from eurology and vascular surgery Anticipated discharge place: Home Patient was seen independently by Nurse Pracitioner. This document was prepared using [employer] dictation software. Please allow for errors in pool manager, while rare they do occur. Steven Burks NP rendered care for this patient independently, reviewed the findings and plan as documented in the note above and agree with plan. I did not physically speak with or examine the patient on this date. Objective - Vital Signs Vital signs: Vital Signs Temp 98 F 09/13/24 08:08 Pulse 57 L 09/13/24 08:08 Resp 14 09/13/24 08:08 BP 160/86 09/13/24 08:08 Pulse Ox 98 09/13/24 08:08 FiO2 Intake & Output 09/12/24 09/13/24 09/13/24 18:59 06:59 18:59 Intake Total 660 Balance 660 Weight 81.647 kg 81.4 kg Intake: Oral 660 Other: # Voids 1 - Labs CBC & Chem 7: 09/13/24 07:03 09/13/24 07:03 Labs: Abnormal Lab Results - Last 24 Hours (Table) 09/12/24 09/12/24 09/12/24 Range/Units 05:41 10:07 12:37 RBC (4.30-5.90) m/uL Hgb (13.0-17.5) gm/dL Hct (39.0-53.0) % Sodium (137-145) mmol/L BUN (9-20) mg/dL Creatinine (0.66-1.25) mg/dL Glucose (74-99) mg/dL POC Glucose (mg/dL) 231 H 214 H (70-110) mg/dL Triglycerides 231.00 H (0.00-149.00) mg/dL VLDL Cholesterol, Calc 46.20 H (5.00-40.00) mg/dL 09/12/24 09/12/24 09/12/24 Range/Units 17:49 19:59 21:34 RBC 4.18 L (4.30-5.90) m/uL Hgb 12.9 L (13.0-17.5) gm/dL Hct (39.0-53.0) % Sodium (137-145) mmol/L BUN (9-20) mg/dL Creatinine (0.66-1.25) mg/dL Glucose (74-99) mg/dL POC Glucose (mg/dL) 217 H 134 H (70-110) mg/dL Triglycerides (0.00-149.00) mg/dL VLDL Cholesterol, Calc (5.00-40.00) mg/dL 09/12/24 09/13/24 09/13/24 Range/Units 21:34 06:06 07:03 RBC 3.97 L (4.30-5.90) m/uL Hgb 12.3 L (13.0-17.5) gm/dL Hct 38.6 L (39.0-53.0) % Sodium 136 L (137-145) mmol/L BUN 34 H (9-20) mg/dL Creatinine 1.34 H (0.66-1.25) mg/dL Glucose 117 H (74-99) mg/dL POC Glucose (mg/dL) 189 H (70-110) mg/dL Triglycerides (0.00-149.00) mg/dL VLDL Cholesterol, Calc (5.00-40.00) mg/dL 09/13/24 Range/Units 07:03 RBC (4.30-5.90) m/uL Hgb (13.0-17.5) gm/dL Hct (39.0-53.0) % Sodium 134 L (137-145) mmol/L BUN 30 H (9-20) mg/dL Creatinine 1.28 H (0.66-1.25) mg/dL Glucose 170 H (74-99) mg/dL POC Glucose (mg/dL) (70-110) mg/dL Triglycerides (0.00-149.00) mg/dL VLDL Cholesterol, Calc (5.00-40.00) mg/dL
--- NOTE | 2024-09-13 14:12 | P.PN ---
Subjective Progress Note Date: 09/13/24 I am seeing the patient for the first time during this hospital admission. Please refer to Dr. Rdz's note for further details. Neurology is reconsulted because of further strokelike symptoms. The patient had speech difficulty resolved and was felt it was TIA. Patient had MRI of the brain which was unremarkable for any stroke. Carotid duplex revealed 50 to 96% stenosis over the right CEA and less than 50% stenosis on the left. We are reconsulted since the patient had further episode in which he stated yesterday was with lying and his was beside him and he had difficulty understanding. And having difficulty getting his words out. The event night it seems the patient had right facial droop and expressive aphasia at night and had a code stroke activated as a result he received CT and CT angiography of the head and neck which was unremarkable for any acute process. His symptoms has resolved. He feels back to baseline. He stated that today he was evaluated by vascular surgery team and he was notified his symptoms is not likely due to his carotid. Objective - Vital Signs Vital signs: Vital Signs Temp 97.9 F 09/13/24 11:58 Pulse 68 09/13/24 11:58 Resp 14 09/13/24 11:58 BP 170/94 09/13/24 11:58 Pulse Ox 97 09/13/24 11:58 FiO2 Intake & Output 09/12/24 09/13/24 09/13/24 18:59 06:59 18:59 Intake Total 660 360 Balance 660 360 Weight 81.647 kg 81.4 kg Intake: Oral 660 360 Other: Voiding Method Urinal # Voids 1 # Bowel Movements 0 - Exam GENERAL: The patient is sitting up in bed and is not in acute distress. NEUROLOGICAL: Higher mental function: The patient is awake, alert, oriented to self, place and time. Patient is following commands. No aphasia and no neglect. Cranial nerves: The pupils are round, equal and reactive to light and accommodation. Visual martins are full to confrontation throughout. Extraocular movement is intact no nystagmus is noted. Facial sensation is normal to touch throughout. The facial strength is normal throughout. Tongue is midline and moved [id number] without any difficulty. No dysarthria is noted. Motor: The strength is 5 over 5 throughout. Normal tone and bulk. Cerebellum: Normal finger to nose bilaterally. Sensation: Sensation is normal to touch throughout. - Labs CBC & Chem 7: 09/13/24 07:03 09/13/24 07:03 Labs: Abnormal Lab Results - Last 24 Hours (Table) 09/12/24 09/12/24 09/12/24 Range/Units 17:49 19:59 21:34 RBC 4.18 L (4.30-5.90) m/uL Hgb 12.9 L (13.0-17.5) gm/dL Hct (39.0-53.0) % Sodium (137-145) mmol/L BUN (9-20) mg/dL Creatinine (0.66-1.25) mg/dL Glucose (74-99) mg/dL POC Glucose (mg/dL) 217 H 134 H (70-110) mg/dL 09/12/24 09/13/24 09/13/24 Range/Units 21:34 06:06 07:03 RBC 3.97 L (4.30-5.90) m/uL Hgb 12.3 L (13.0-17.5) gm/dL Hct 38.6 L (39.0-53.0) % Sodium 136 L (137-145) mmol/L BUN 34 H (9-20) mg/dL Creatinine 1.34 H (0.66-1.25) mg/dL Glucose 117 H (74-99) mg/dL POC Glucose (mg/dL) 189 H (70-110) mg/dL 09/13/24 09/13/24 Range/Units 07:03 11:16 RBC (4.30-5.90) m/uL Hgb (13.0-17.5) gm/dL Hct (39.0-53.0) % Sodium 134 L (137-145) mmol/L BUN 30 H (9-20) mg/dL Creatinine 1.28 H (0.66-1.25) mg/dL Glucose 170 H (74-99) mg/dL POC Glucose (mg/dL) 211 H (70-110) mg/dL Assessment and Plan Assessment: * Probable TIA manifesting with speech difficulty, that resolved in about several hours. At present all symptoms have resolved. Current NIH stroke scale is 0. And he had another episode at nighttime with expressive aphasia and facial droop and had a code stroke activated yesterday at night which was unremarkable and the patient symptoms resolved. Per the primary team CAN HAND[employer]ER patient had 4 episodes in the last 1 to 2 weeks. MRI of the brain is unremarkable for any acute process. * Diabetes * Hypertension * Hyperlipidemia * Coronary artery disease * History of TIA 2 in the past Plan: Will get a repeat MRI of the brain for this Sunday and a routine EEG since the patient is having recurrent symptoms to rule out any underlying seizure or discharges. MRI of the brain without contrast, revealed no evidence for a recent infarct. There is persistent moderate diffuse cerebral atrophy. Bilateral maxillary sinus disease with acute findings suspected on the right redemonstrated. 2-D echo revealed mildly reduced LV systolic function with EF 45%. Severely increased left atrial diameter. Mild MR. Normally functioning prosthetic aortic valve with peak gradient of 19 mmHg. Consider cardiology consultation especially with a severely increased left atrial diameter. Carotid Doppler, was performed. Revealed 50-69% stenosis of the proximal right ICA. Less than 50% stenosis of the carotid bifurcation. Antegrade flow in both vertebral arteries. CTA of the head and neck revealed no evidence for hemodynamically significant stenosis of the carotid bifurcations. No significant diameter reduction to call for the patient's symptoms. Limited evaluation of the intracranial vasculature fails to demonstrate evidence for obvious high-grade stenosis or aneurysm. CT of the head is reported as no acute intracranial hemorrhage or midline shift. Vascular surgery evaluated the patient they stated continue medical management and there is no hemodynamically severe carotid stenosis. Follow-up as an outpatient. Fasting a.m. lipid panel cholesterol 193, LDL 100, HDL 46 and triglycerides 231. Continue Lipitor 40 mg daily. Hemoglobin A1c 9.6. Recommend optimize control of diabetes to target A1c <7.0. Optimize control of blood pressure to normotensive level. Avoid hypotension. Continue Eliquis 5 mg twice daily and aspirin 81 mg daily. Neuro checks as per protocol. Telemetry monitoring rule out any arrhythmia. It seems no A-fib or flutter reported over the last 24 hours. Has PVC's. Recommend 30-day event monitor. PT, OT, speech therapy DVT prophylaxis: Patient on Eliquis. The plan discussed with patient's primary team nurse practitioner. Time with Patient: Less than 30
[2024-09-13 16:24] LABS: Glucose,Whole Blood 215 mg/dL (70-110)
[2024-09-13 20:35] LABS: Glucose,Whole Blood 211 mg/dL (70-110)
[2024-09-14 06:24] LABS: Glucose,Whole Blood 179 mg/dL (70-110)
[2024-09-14 07:47] LABS: Urine Alcohol Negative (Negative); Urine Barbiturate Negative (Negative); Urine Cocaine Negative (Negative); Urine Methadone Negative (Negative); Urine Opiates Negative (Negative); Urine Phencyclidine Negative (Negative)
[2024-09-14 11:44] LABS: HCT 41.1 % (39.0-53.0); HGB 13.5 gm/dL (13.0-17.5); MCH 31.5 pg (25.0-35.0); MCHC 32.8 g/dL (31.0-37.0); MCV 96.1 fL (80.0-100.0); Mean Platelet Volume 8.3; Platelet Count 169 k/uL (150-450); RBC 4.28 m/uL (4.30-5.90); RDW 13.1 % (11.5-15.5); WBC 6.7 k/uL (3.8-10.6)
[2024-09-14 11:46] LABS: Glucose,Whole Blood 184 mg/dL (70-110)
[2024-09-14 12:05] LABS: African American GFR (CKD) 55 (>60 ml/min/1.73 sqM); Albumin 4.1 g/dL (3.5-5.0); Anion Gap 10 mmol/L; Blood Urea Nitrogen 33 mg/dL (9-20); Calcium 9.5 mg/dL (8.4-10.2); Carbon Dioxide 25 mmol/L (22-30); Chloride 99 mmol/L (98-107); Glucose 184 mg/dL (74-99); Non-African American GFR(CKD) 48 (>60 ml/min/1.73 sqM); Potassium 4.8 mmol/L (3.5-5.1); Sodium 134 mmol/L (137-145); Total Bilirubin 0.8 mg/dL (0.2-1.3); Total Protein 6.9 g/dL (6.3-8.2)
[2024-09-14 12:06] LABS: ALT 16 U/L (4-49); AST 20 U/L (17-59); Alkaline Phosphatase 59 U/L (38-126)
--- NOTE | 2024-09-14 13:32 | P.PN ---
Subjective Progress Note Date: 09/14/24 Hospital course: Patient is a pleasant 78-year-old male with a past medical history of CAD status post CABG x 3, valvular heart disease with bioprosthetic aortic valve replacement, paroxysmal atrial fibrillation on anticoagulation with Eliquis, hypertension, hyperlipidemia, type II cam-xcvkwmz-gdltiwele diabetes mellitus, recurrent TIAs and a previous CVA. He presented to the emergency department on 09/11/2024 with a chief complaint of altered mental status with reports of confusion and difficulties doing simple basic activities such as using his phone. Patient also reports experiencing some slurred speech and a severe headache. Patient reported experiencing multiple TIAs over the past week approximately 4 but states this one lasted longer than any of the others so he was concerned and came to the emergency department. On arrival to our facility, patient underwent evaluation in the emergency department. Vital signs upon arrival show blood pressure of 210/99, heart rate 90, respiratory rate 20, temp 97.3 F, and SpO2 of 98% on room air. Point of care glucose upon arrival 198. EKG completed showing normal sinus rhythm at 76 bpm with occasional PVCs and a right bundle branch block. Chest x-ray completed negative for acute cardiopulmonary process showing chronic interstitial prominence. CT brain negative for acute process showing small remote lacunar infarct in left basal ganglia. Labs completed and reviewed. CBC unremarkable. Coagulation profile normal findings. BMP showing sodium 134, chloride 94, BUN of 29, creatinine 1.34, and GFR of 50 with baseline creatinine around 1.4. Liver profile unremarkable. Creatinine kidneys 53. Troponin was negative at 0.012. Patient admitted under our services with consultation to neurology. CTA head was completed showing limited evaluation of the intracranial vasculature but fails to demonstrate evidence for obvious high-grade stenosis or aneurysm. Carotid Doppler showing right sided carotid stenosis of 50 to 69% at the proximal right internal carotid artery with left side less than 50% stenosis. MRI brain completed negative for evidence of recent infarct showing persistent moderate diffuse cerebral atrophy and bilateral maxillary sinus disease with acute finding suspected for right side sinusitis showing dependent fluid on right. Echocardiogram was completed showing a reduced EF of 40 to 45% with severely increased left atrial diameter and left atrial volume, mild tricuspid regurgitation, moderate pulmonic regurgitation and mildly dilated proximal ascending aorta with bioprosthetic aortic valve stable and functioning normally with acceptable gradients and no reported right to left shunting at the interatrial level. Vascular surgery was consulted secondary to right-sided carotid stenosis and recurrent TIAs. Overnight on 09/12/2024 patient again found to have slurred speech and expressive aphasia with right-sided facial droop and a code stroke was called. NIH at this time was 3. CT brain completed showing no acute intercranial abnormality revealing diffuse age-related cerebral atrophy and chronic small vessel ischemic changes. CTA head and neck again completed showing limited evaluation of the intracranial vasculature but fails to demonstrate evidence for obvious high-grade stenosis or aneurysm. Physical exam: Patient seen and fully evaluated at bedside this morning. He currently denies having any pain or complaints at this time. He has not had any reported further events of strokelike symptoms in the last 24 hours. Again discussed plan of care with patient with plans for MRI and EEG tomorrow. Patient denies having any other questions, needs, or concerns at this time. Vital signs reviewed and stable. General: Nontoxic, no distress and appears stated age. Derm: Skin warm and dry, normal coloration for ethnicity. Head: Atraumatic, normocephalic and symmetric. Eyes: EOM's intact, no lid lag, and anicteric sclera Mouth: no lip lesions, mucus membranes moist Cardiovascular: regular rate and rhythm with normal S1S2, systolic murmur, positive posterior tibial pulses bilaterally, and cap refill < 2 seconds. Lungs: Respirations even, regular, and unlabored on room air. Lungs CTA bilaterally, no rhonchi, no rales, no wheezing, and no accessory muscle usage. Abdominal: soft, nontender to palpation, no guarding, no appreciable organomegaly Ext: ROM intact. No gross muscle atrophy, no edema, no contractures Neuro: Speech clear, face symmetrical and CN II-XII grossly intact with no noted focal neuro deficits Psych: Alert and oriented to person, place, time, and situation. Appropriate and pleasant affect. Assessment and Plan of Care: Recurrent Transient episodes of cognitive and speech impairment with reports of right sided facial droop during events, rule out recurrent TIA's versus CVA History of recurrent recent TIAs Right-sided carotid stenosis, 50 to 69% History of CVA -Neurology following, discussed plan of care with Dr. Wong recommending that due to recurrent episodes of strokelike symptoms will need to repeat MRI on Sunday and obtain an EEG. -TSH normal findings at 2.180, Lipid profile showing elevated triglycerides of 231 and elevated VLDL of 46.20. Hgb A1c elevated at 9.6%. -Continue NIH stroke scale with neuro checks every 4 hours and as needed -Continue aspirin 81 mg daily, atorvastatin 40 mg nightly, and Eliquis 5 mg twice daily. -PT/OT following -Fall precautions and provide pt with assistance as needed. Acute on chronic sinusitis -Patient started on Augmentin 500/125 mg twice daily x 10 days (Day 3) CAD status post CABG x 3 Hypertensive urgency upon arrival Valvular heart disease status post bioprosthetic aortic valve replacement Paroxysmal atrial fibrillation Hyperlipidemia -Continue daily medication regimen with aspirin 81 mg daily, Eliquis 5 mg twice daily, atorvastatin 40 mg nightly, and metoprolol 12.5 mg twice daily. Type II fur-duqqxhc-qxusdtehs diabetes mellitus with hyperglycemia -Hemoglobin A1c resulting at 9.6%. Patient admits to poorly managed diabetes, a cknowledging due to his own dietary choices over the past month. -Had long discussion and educated patient on the importance of optimizing control of its diabetes. At this time metformin held and patient placed on glycemic protocol with NovoLog sliding scale. Data and imaging reviewed: Morning labs reviewed. CBC unremarkable. BMP showing hyponatremia with sodium of 134 and continued elevated but stable renal function with BUN of 33, creatinine of 1.39, GFR 48. Blood glucose was elevated at 184. Vital signs reviewed. Blood pressure 133/75, heart rate 65, respiratory rate 14, temp 97.9 F, and SpO2 of 96% on room air CODE STATUS: Full code DVT prophylaxis: Eliquis Anticipated discharge date: Pending clinical course, secondary to recurrent transient episodes of cognitive and speech impairment with right sided facial droop during these events, neurologist recommending repeating MRI on Sunday and obtaining an EEG. Admission was changed from observation to inpatient secondary to recurrent transient episodes of strokelike symptoms. Anticipated discharge place: Home Patient was seen independently by Nurse Pracitioner. This document was prepared using [employer] dictation software. Please allow for errors in perforating machine operator, while rare they do occur. Steven Burks NP rendered care for this patient independently, reviewed the findings and plan as documented in the note above and agree with plan. I did not physically speak with or examine the patient on this date. Objective - Vital Signs Vital signs: Vital Signs Temp 97.9 F 09/14/24 08:26 Pulse 65 09/14/24 08:26 Resp 14 09/14/24 08:26 BP 133/75 09/14/24 08:26 Pulse Ox 96 09/14/24 08:26 FiO2 Intake & Output 09/13/24 09/14/24 09/14/24 17:59 06:59 18:59 Intake Total 320 Balance 320 Weight Intake: Oral 320 Other: Voiding Method # Voids 1 # Bowel Movements 0 - Labs CBC & Chem 7: 09/14/24 11:09 09/14/24 11:09 Labs: Abnormal Lab Results - Last 24 Hours (Table) 09/13/24 09/13/24 09/13/24 Range/Units 07:03 07:03 11:16 RBC 3.97 L (4.30-5.90) m/uL Hgb 12.3 L (13.0-17.5) gm/dL Hct 38.6 L (39.0-53.0) % Sodium 134 L (137-145) mmol/L BUN 30 H (9-20) mg/dL Creatinine 1.28 H (0.66-1.25) mg/dL Glucose 170 H (74-99) mg/dL POC Glucose (mg/dL) 211 H (70-110) mg/dL 09/13/24 09/13/24 09/14/24 Range/Units 16:22 20:34 06:17 RBC (4.30-5.90) m/uL Hgb (13.0-17.5) gm/dL Hct (39.0-53.0) % Sodium (137-145) mmol/L BUN (9-20) mg/dL Creatinine (0.66-1.25) mg/dL Glucose (74-99) mg/dL POC Glucose (mg/dL) 215 H 211 H 179 H (70-110) mg/dL
--- NOTE | 2024-09-14 13:41 | P.PN ---
Subjective Progress Note Date: 09/14/24 I am following up with the patient and no further events overnight or this morning. He feels back to baseline. Objective - Vital Signs Vital signs: Vital Signs Temp 97.9 F 09/14/24 12:12 Pulse 60 09/14/24 12:12 Resp 14 09/14/24 12:12 BP 144/64 09/14/24 12:12 Pulse Ox 99 09/14/24 12:12 FiO2 Intake & Output 09/13/24 09/14/24 09/14/24 17:59 06:59 18:59 Intake Total 320 Balance 320 Weight Intake: Oral 320 Other: Voiding Method Urinal # Voids 1 # Bowel Movements 0 - Exam GENERAL: The patient is sitting up in bed and is not in acute distress. NEUROLOGICAL: Higher mental function: The patient is awake, alert, oriented to self, place and time. Patient is following commands. No aphasia and no neglect. Cranial nerves: The pupils are round, equal and reactive to light and accommodation. Visual martins are full to confrontation throughout. Extraocular movement is intact no nystagmus is noted. Facial sensation is normal to touch throughout. The facial strength is normal throughout. Tongue is midline and moved [id number] without any difficulty. No dysarthria is noted. Motor: The strength is 5 over 5 throughout. Normal tone and bulk. Cerebellum: Normal finger to nose bilaterally. Sensation: Sensation is normal to touch throughout. - Labs CBC & Chem 7: 09/14/24 11:09 09/14/24 11:09 Labs: Abnormal Lab Results - Last 24 Hours (Table) 09/13/24 09/13/24 09/14/24 Range/Units 16:22 20:34 06:17 RBC (4.30-5.90) m/uL Sodium (137-145) mmol/L BUN (9-20) mg/dL Creatinine (0.66-1.25) mg/dL Glucose (74-99) mg/dL POC Glucose (mg/dL) 215 H 211 H 179 H (70-110) mg/dL 09/14/24 09/14/24 09/14/24 Range/Units 11:09 11:09 11:44 RBC 4.28 L (4.30-5.90) m/uL Sodium 134 L (137-145) mmol/L BUN 33 H (9-20) mg/dL Creatinine 1.39 H (0.66-1.25) mg/dL Glucose 184 H (74-99) mg/dL POC Glucose (mg/dL) 184 H (70-110) mg/dL Assessment and Plan Assessment: * Probable TIA manifesting with speech difficulty, that resolved in about several hours. At present all symptoms have resolved. Current NIH stroke scale is 0. And he had another episode at 2 nights ago with expressive aphasia and facial droop and had a code stroke activated yesterday at night which was unremarkable and the patient symptoms resolved. Per the primary team PERSONAL DEVELOPMENT COACH patient had 4 episodes in the last 1 to 2 weeks. MRI of the brain is unremarkable for any acute process.---no events overnight or today. * Diabetes * Hypertension * Hyperlipidemia * Coronary artery disease * History of TIA 2 in the past Plan: Will get a repeat MRI of the brain for this Sunday and a routine EEG since the patient is having recurrent symptoms to rule out any underlying seizure or discharges. MRI of the brain without contrast, revealed no evidence for a recent infarct. There is persistent moderate diffuse cerebral atrophy. Bilateral maxillary sinus disease with acute findings suspected on the right redemonstrated. 2-D echo revealed mildly reduced LV systolic function with EF 45%. Severely increased left atrial diameter. Mild MR. Normally functioning prosthetic aortic valve with peak gradient of 19 mmHg. Consider cardiology consultation especially with a severely increased left atrial diameter. Carotid Doppler, was performed. Revealed 50-69% stenosis of the proximal right ICA. Less than 50% stenosis of the carotid bifurcation. Antegrade flow in both vertebral arteries. CTA of the head and neck revealed no evidence for hemodynamically significant stenosis of the carotid bifurcations. No significant diameter reduction to call for the patient's symptoms. Limited evaluation of the intracranial vasculature fails to demonstrate evidence for obvious high-grade stenosis or aneurysm. CT of the head is reported as no acute intracranial hemorrhage or midline shift. Vascular surgery evaluated the patient they stated continue medical management and there is no hemodynamically severe carotid stenosis. Follow-up as an outpatient. Fasting a.m. lipid panel cholesterol 193, LDL 100, HDL 46 and triglycerides 231. Continue Lipitor 40 mg daily. Hemoglobin A1c 9.6. Recommend optimize control of diabetes to target A1c <7.0. Optimize control of blood pressure to normotensive level. Avoid hypotension. Continue Eliquis 5 mg twice daily and aspirin 81 mg daily. Neuro checks as per protocol. Telemetry monitoring rule out any arrhythmia. It seems no A-fib or flutter reported over the last 24 hours. Has PVC's. Recommend 30-day event monitor. PT, OT, speech therapy DVT prophylaxis: Patient on Eliquis. The plan discussed with patient's primary team nurse practitioner. Time with Patient: Less than 30
[2024-09-14 17:02] LABS: Glucose,Whole Blood 166 mg/dL (70-110)
[2024-09-14 21:12] LABS: Glucose,Whole Blood 310 mg/dL (70-110)
[2024-09-14] MEDS: METOPROLOL TARTRATE 25 MG TAB PO SCH (22:01)
[2024-09-15 06:13] LABS: Glucose,Whole Blood 193 mg/dL (70-110)
[2024-09-15 08:19] LABS: ALT 14 U/L (10-49); AST 16 U/L (14-35); Albumin 3.8 g/dL (3.8-4.9); Albumin/Globulin Ratio 1.58 Ratio (1.60-3.17); Alkaline Phosphatase 57 U/L (41-126); BUN/Creat Ratio 22.29 Ratio (12.00-20.00); Blood Urea Nitrogen 31.2 mg/dL (9.0-27.0); Calcium 9.2 mg/dL (8.7-10.3); Carbon Dioxide 25.4 mmol/L (21.6-31.8); Chloride 101 mmol/L (96-109); Globulin 2.4 g/dL (1.6-3.3); Glucose 180 mg/dL (70-110); Potassium 4.2 mmol/L (3.5-5.5); Sodium 137 mmol/L (135-145); Total Bilirubin 0.5 mg/dL (0.3-1.2); Total Protein 6.2 g/dL (6.2-8.2)
[2024-09-15 09:07] LABS: HCT 36.3 % (39.6-50.0); HGB 12.4 g/dL (13.0-17.0); MCH 32.9 pg (27.0-32.0); MCHC 34.2 g/dL (32.0-37.0); MCV 96.3 FL (80.0-97.0); Mean Platelet Volume 11.1 FL (9.5-12.2); NRBC Per 100 WBC 0 X 10*3/uL (0.00-0.01); Platelet Count 156 X 10*3/uL (140-440); RBC 3.77 X 10*6/uL (4.40-5.60); RDW 12.8 % (11.5-14.5); WBC 5.62 X 10*3/uL (4.50-10.00)
[2024-09-15 11:41] LABS: Glucose,Whole Blood 183 mg/dL (70-110)
--- NOTE | 2024-09-15 12:45 | P.PN ---
Subjective Progress Note Date: 09/15/24 Hospital course: Patient is a pleasant 78-year-old male with a past medical history of CAD status post CABG x 3, valvular heart disease with bioprosthetic aortic valve replacement, paroxysmal atrial fibrillation on anticoagulation with Eliquis, hypertension, hyperlipidemia, type II [id number]-fprgbanxx diabetes mellitus, recurrent TIAs and a previous CVA. He presented to the emergency department on 09/11/2024 with a chief complaint of altered mental status with reports of confusion and difficulties doing simple basic activities such as using his phone. Patient also reports experiencing some slurred speech and a severe headache. Patient reported experiencing multiple TIAs over the past week approximately 4 but states this one lasted longer than any of the others so he was concerned and came to the emergency department. On arrival to our facility, patient underwent evaluation in the emergency department. Vital signs upon arrival show blood pressure of 210/99, heart rate 90, respiratory rate 20, temp 97.3 F, and SpO2 of 98% on room air. Point of care glucose upon arrival 198. EKG completed showing normal sinus rhythm at 76 bpm with occasional PVCs and a right bundle branch block. Chest x-ray completed negative for acute cardiopulmonary process showing chronic interstitial prominence. CT brain negative for acute process showing small remote lacunar infarct in left basal ganglia. Labs completed and reviewed. CBC unremarkable. Coagulation profile normal findings. BMP showing sodium 134, chloride 94, BUN of 29, creatinine 1.34, and GFR of 50 with baseline creatinine around 1.4. Liver profile unremarkable. Creatinine kidneys 53. Troponin was negative at 0.012. Patient admitted under our services with consultation to neurology. CTA head was completed showing limited evaluation of the intracranial vasculature but fails to demonstrate evidence for obvious high-grade stenosis or aneurysm. Carotid Doppler showing right sided carotid stenosis of 50 to 69% at the proximal right internal carotid artery with left side less than 50% stenosis. MRI brain completed negative for evidence of recent infarct showing persistent moderate diffuse cerebral atrophy and bilateral maxillary sinus disease with acute finding suspected for right side sinusitis showing dependent fluid on right. Echocardiogram was completed showing a reduced EF of 40 to 45% with severely increased left atrial diameter and left atrial volume, mild tricuspid regurgitation, moderate pulmonic regurgitation and mildly dilated proximal ascending aorta with bioprosthetic aortic valve stable and functioning normally with acceptable gradients and no reported right to left shunting at the interatrial level. Vascular surgery was consulted secondary to right-sided carotid stenosis and recurrent TIAs. Overnight on 09/12/2024 patient again found to have slurred speech and expressive aphasia with right-sided facial droop and a code stroke was called. NIH at this time was 3. CT brain completed showing no acute intercranial abnormality revealing diffuse age-related cerebral atrophy and chronic small vessel ischemic changes. CTA head and neck again completed showing limited evaluation of the intracranial vasculature but fails to demonstrate evidence for obvious high-grade stenosis or aneurysm. Physical exam: Patient seen and fully evaluated at bedside this morning. He currently denies having any pain or complaints at this time and has not had any further reported episodes of strokelike symptoms in the last 48 hours. Discussed with patient likely plans for discharge later today if MRI and EEG normal findings. Vital signs reviewed and stable. General: Nontoxic, no distress and appears stated age. Derm: Skin warm and dry, normal coloration for ethnicity. Head: Atraumatic, normocephalic and symmetric. Eyes: EOM's intact, no lid lag, and anicteric sclera Mouth: no lip lesions, mucus membranes moist Cardiovascular: regular rate and rhythm with normal S1S2, systolic murmur, p ositive posterior tibial pulses bilaterally, and cap refill < 2 seconds. Lungs: Respirations even, regular, and unlabored on room air. Lungs CTA bilaterally, no rhonchi, no rales, no wheezing, and no accessory muscle usage. Abdominal: soft, nontender to palpation, no guarding, no appreciable orga nomegaly Ext: ROM intact. No gross muscle atrophy, no edema, no contractures Neuro: Speech clear, face symmetrical and CN II-XII grossly intact with no noted focal neuro deficits Psych: Alert and oriented to person, place, time, and situation. Appropriate and pleasant affect. Assessment and Plan of Care: Recurrent Transient episodes of cognitive and speech impairment with reports of right sided facial droop during events, rule out recurrent TIA's versus CVA History of recurrent recent TIAs Right-sided carotid stenosis, 50 to 69% History of CVA -Neurology following, discussed plan of care with Dr. Wong and due to recurrent episodes of strokelike symptoms-EEG to be completed today and further recommendations pending. -TSH normal findings at 2.180, Lipid profile showing elevated triglycerides of 231 and elevated VLDL of 46.20. Hgb A1c elevated at 9.6%. -Continue NIH stroke scale with neuro checks every 4 hours and as needed -Continue aspirin 81 mg daily, atorvastatin 40 mg nightly, and Eliquis 5 mg twice daily. -PT/OT following -Fall precautions and provide pt with assistance as needed. Acute on chronic sinusitis -Patient started on Augmentin 500/125 mg twice daily x 10 days (Day 10/16) CAD status post CABG x 3 Hypertensive urgency upon arrival Valvular heart disease status post bioprosthetic aortic valve replacement Paroxysmal atrial fibrillation Hyperlipidemia -Continue daily medication regimen with aspirin 81 mg daily, Eliquis 5 mg twice daily, atorvastatin 40 mg nightly, and metoprolol 12.5 mg twice daily. Type II rck-ovzjchf-awhswxnrm diabetes mellitus with hyperglycemia -Hemoglobin A1c resulting at 9.6%. Patient admits to poorly managed diabetes, acknowledging due to his own dietary choices over the past month. -Had long discussion and educated patient on the importance of optimizing control of its diabetes. At this time metformin held and patient placed on glycemic protocol with NovoLog sliding scale. Data and imaging reviewed: Morning labs reviewed. CBC showing stable normocytic anemia with hemoglobin of 12.4. BMP showing baseline renal function for CKD with BUN of 31.2, creatinine 1.4, GFR 51. Blood glucose was 180. Magnesium 2.0. Vital signs reviewed. Blood pressure 159/81, heart rate 67, respiratory rate 18, temp 97.4 F, and SpO2 of 99% on room air. CODE STATUS: Full code DVT prophylaxis: Eliquis Anticipated discharge date: Pending clinical course, secondary to recurrent transient episodes of cognitive and speech impairment with right sided facial droop during these events, neurologist recommending repeating MRI and obtaining an EEG. Admission was changed from observation to inpatient secondary to recurrent transient episodes of strokelike symptoms. Anticipated discharge place: Home Patient was seen independently by Nurse Pracitioner. This document was prepared using [employer] dictation software. Please allow for errors in cruise consultant, while rare they do occur. Steven Burks NP rendered care for this patient independently, reviewed the findings and plan as documented in the note above and agree with plan. I did not physically speak with or examine the patient on this date. Objective - Vital Signs Vital signs: Vital Signs Temp 97.4 F L 09/15/24 07:38 Pulse 67 09/15/24 07:38 Resp 18 09/15/24 07:38 BP 159/81 09/15/24 07:38 Pulse Ox 99 09/15/24 07:38 FiO2 Intake & Output 09/14/24 09/15/24 09/15/24 18:59 06:59 18:59 Intake Total 320 3050 Balance 320 3050 Intake: Oral 320 3050 Other: Voiding Method Urinal # Voids 1 6 # Bowel Movements 0 - Labs CBC & Chem 7: 09/15/24 03:51 09/15/24 03:51 Labs: Abnormal Lab Results - Last 24 Hours (Table) 09/14/24 09/14/24 09/14/24 Range/Units 11:09 11:09 11:44 RBC 4.28 L (4.30-5.90) m/uL Sodium 134 L (137-145) mmol/L BUN 33 H (9-20) mg/dL Creatinine 1.39 H (0.66-1.25) mg/dL Est GFR (CKD-EPI) (>=60) BUN/Creatinine Ratio (12.00-20.00) Ratio Glucose 184 H (74-99) mg/dL POC Glucose (mg/dL) 184 H (70-110) mg/dL Albumin/Globulin Ratio (1.60-3.17) Ratio 09/14/24 09/14/24 09/15/24 Range/Units 17:00 21:10 03:51 RBC (4.30-5.90) m/uL Sodium (137-145) mmol/L BUN 31.2 H (9-20) mg/dL Creatinine (0.66-1.25) mg/dL Est GFR (CKD-EPI) 51 L (>=60) BUN/Creatinine Ratio 22.29 H (12.00-20.00) Ratio Glucose 180 H (74-99) mg/dL POC Glucose (mg/dL) 166 H 310 H (70-110) mg/dL Albumin/Globulin Ratio 1.58 L (1.60-3.17) Ratio 09/15/24 Range/Units 06:12 RBC (4.30-5.90) m/uL Sodium (137-145) mmol/L BUN (9-20) mg/dL Creatinine (0.66-1.25) mg/dL Est GFR (CKD-EPI) (>=60) BUN/Creatinine Ratio (12.00-20.00) Ratio Glucose (74-99) mg/dL POC Glucose (mg/dL) 193 H (70-110) mg/dL Albumin/Globulin Ratio (1.60-3.17) Ratio
--- NOTE | 2024-09-15 13:04 | MR ---
EXAMINATION TYPE: MR brain wo con DATE OF EXAM: 09/15/2024 COMPARISON: CT brain and MRI brain from 3 days ago. HISTORY: Recurrent expressive aphasia. TECHNIQUE: Multiplanar, multisequence imaging of the brain and brainstem is performed without IV cont rast. FINDINGS: Diffusion weighted images demonstrate no evidence of a recent infarct or other diffusion abnormality. There is moderate ventricular and sulcal prominence redemonstrated. No suspicious white matter signal abnormalities. Midline structures demonstrate normal morphology. The craniocervical junction appears within normal limits. Normal vascular flow voids are present. A dominant left vertebral artery is redemonstrated wh ich is normal variant. The globes are intact bilaterally. Mild to moderate mucosal thickening involvi ng bilateral maxillary sinuses with some dependent fluid on the right is redemonstrated. Mild to mode rate mucosal thickening involving anterior ethmoid sinuses bilaterally. IMPRESSION: 1. No MRI evidence for a recent infarct. No significant change from most recent MRI. [facility], , 09/15/2024 1:02 PM
[2024-09-15 14:42] VITALS: BMI 28.3
--- NOTE | 2024-09-15 14:58 | P.PN ---
Subjective Progress Note Date: 09/15/24 I am following up with the patient and he feels he is doing drastically better. He denies of any new neurological issues. He has been stable for the last 48 hours. Objective - Vital Signs Vital signs: Vital Signs Temp 97.4 F L 09/15/24 13:59 Pulse 74 09/15/24 13:59 Resp 19 09/15/24 13:59 BP 167/81 09/15/24 13:59 Pulse Ox 97 09/15/24 13:59 FiO2 Intake & Output 09/14/24 09/15/24 09/15/24 18:59 06:59 18:59 Intake Total 320 3050 Balance 320 3050 Weight 89.5 kg Intake: Oral 320 3050 Other: Voiding Method Urinal # Voids 1 6 # Bowel Movements 0 - Exam GENERAL: The patient is sitting up in bed and is not in acute distress. NEUROLOGICAL: Higher mental function: The patient is awake, alert, oriented to self, place and time. Patient is following commands. No aphasia and no neglect. Cranial nerves: The pupils are round, equal and reactive to light and accommodation. Visual martins are full to confrontation throughout. Extraocular movement is intact no nystagmus is noted. Facial sensation is normal to touch throughout. The facial strength is normal throughout. Tongue is midline and moved [id number] without any difficulty. No dysarthria is noted. Motor: The strength is 5 over 5 throughout. Normal tone and bulk. Cerebellum: Normal finger to nose bilaterally. Sensation: Sensation is normal to touch throughout. - Labs CBC & Chem 7: 09/15/24 03:51 09/15/24 03:51 Labs: Abnormal Lab Results - Last 24 Hours (Table) 09/14/24 09/14/24 09/15/24 Range/Units 17:00 21:10 03:51 RBC 3.77 L (4.40-5.60) X 10*6/uL Hgb 12.4 L (13.0-17.0) g/dL Hct 36.3 L (39.6-50.0) % MCH 32.9 H (27.0-32.0) pg BUN (9.0-27.0) mg/dL Est GFR (CKD-EPI) (>=60) BUN/Creatinine Ratio (12.00-20.00) Ratio Glucose (70-110) mg/dL POC Glucose (mg/dL) 166 H 310 H (70-110) mg/dL Albumin/Globulin Ratio (1.60-3.17) Ratio 09/15/24 09/15/24 09/15/24 Range/Units 03:51 06:12 11:26 RBC (4.40-5.60) X 10*6/uL Hgb (13.0-17.0) g/dL Hct (39.6-50.0) % MCH (27.0-32.0) pg BUN 31.2 H (9.0-27.0) mg/dL Est GFR (CKD-EPI) 51 L (>=60) BUN/Creatinine Ratio 22.29 H (12.00-20.00) Ratio Glucose 180 H (70-110) mg/dL POC Glucose (mg/dL) 193 H 183 H (70-110) mg/dL Albumin/Globulin Ratio 1.58 L (1.60-3.17) Ratio Assessment and Plan Assessment: * Probable TIA manifesting with speech difficulty, that resolved in about several hours. At present all symptoms have resolved. Current NIH stroke scale is 0. And he had another episode at 2 nights ago with expressive aphasia and facial droop and had a code stroke activated yesterday at night which was unremarkable and the patient symptoms resolved. 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 MRI of the brain is unremarkable for any acute process.---no events overnight or today. * Diabetes * Hypertension * Hyperlipidemia * Coronary artery disease * History of TIA 2 in the past Plan: Will get a repeat MRI of the brain obtain and a routine EEG since the patient is having recurrent symptoms to rule out any underlying seizure or discharges. MRI of the brain without contrast, revealed no evidence for a recent infarct. There is persistent moderate diffuse cerebral atrophy. Bilateral maxillary sinus disease with acute findings suspected on the right redemonstrated. 2-D echo revealed mildly reduced LV systolic function with EF 45%. Severely increased left atrial diameter. Mild MR. Normally functioning prosthetic aortic valve with peak gradient of 19 mmHg. Consider cardiology consultation especially with a severely increased left atrial diameter. Carotid Doppler, was performed. Revealed 50-69% stenosis of the proximal right ICA. Less than 50% stenosis of the carotid bifurcation. Antegrade flow in both vertebral arteries. CTA of the head and neck revealed no evidence for hemodynamically significant stenosis of the carotid bifurcations. No significant diameter reduction to call for the patient's symptoms. Limited evaluation of the intracranial vasculature fails to demonstrate evidence for obvious high-grade stenosis or aneurysm. CT of the head is reported as no acute intracranial hemorrhage or midline shift. Vascular surgery evaluated the patient they stated continue medical management and there is no hemodynamically severe carotid stenosis. Follow-up as an outpatient. Fasting a.m. lipid panel cholesterol 193, LDL 100, HDL 46 and triglycerides 231. Continue Lipitor 40 mg daily. Hemoglobin A1c 9.6. Recommend optimize control of diabetes to target A1c <7.0. Optimize control of blood pressure to normotensive level. Avoid hypotension. Continue Eliquis 5 mg twice daily and aspirin 81 mg daily. Neuro checks as per protocol. Telemetry monitoring rule out any arrhythmia. It seems no A-fib or flutter reported over the last 24 hours. Has PVC's. Recommend 30-day event monitor. PT, OT, speech therapy DVT prophylaxis: Patient on Eliquis. Upon discharge recommend the patient to follow-up with a neurologist as an outpatient within 2 to 3 weeks. The plan discussed with patient's primary team nurse practitioner. If the repeat MRI routine EEG normal then the patient is cleared from a neurological perspective. Time with Patient: Less than 30
--- NOTE | 2024-09-15 15:43 | P.PN ---
Progress Note - Text Progress Note Date: 09/15/24 Preliminary routine EEG: Normal.
[2024-09-15 16:34] LABS: Glucose,Whole Blood 267 mg/dL (70-110)
[2024-09-15 20:39] LABS: Glucose,Whole Blood 125 mg/dL (70-110)
--- NOTE | 2024-09-15 21:14 | EEG ---
ELECTROENCEPHALOGRAM REPORT CLINICAL HISTORY: This is an 78-year-old gentleman with recurrent speech difficulty. The video EEG is obtained to evaluate for seizure and epileptiform activity. RELEVANT MEDICATION: The patient is not on any antiseizure medication. EEG TYPE: This is a routine 21-channel EEG with video using the 10/20 electrode placement system. DESCRIPTION: Wakefulness and drowsiness are obtained. During awake state, the posterior-dominant rhythm consists of [id number] voltage of 8.5 to 9 Hz activity that is well modulated and well sustained. There is no physiological stage 2 sleep architecture. There is no focal slowing. Interictal and ictal are none. ACTIVATION PROCEDURE: Photic stimulation did not evoke a posterior response. There is no abnormality during the photic stimulation. Hyperventilation is not performed. CLINICAL INTERPRETATION: This is a normal routine EEG during awake and drowsy state. There is no focal slowing, epileptiform discharge, or seizure on the EEG. A normal routine EEG does not rule out underlying epilepsy. Clinical correlation is recommended. TEX / RAGINI: [id number] /
[2024-09-16 06:06] LABS: Glucose,Whole Blood 166 mg/dL (70-110)
[2024-09-16 07:43] VITALS: BP 159/88; PULSE 61; RESP 19; TEMP 97.5
--- NOTE | 2024-09-16 12:26 | P.DS ---
Providers Date of admission: 09/13/24 16:10 Expected date of discharge: 09/16/24 Attending physician: Paul Arana Consults: 09/11/24 14:52 Consult Physician Urgent Consulting Provider: John Rdz Consult Reason/Comments: stroke like symptoms Do you want consulting provider notified?: Yes 09/12/24 17:04 Consult Physician Routine Consulting Provider: Braydon Amaya Consult Reason/Comments: recurrent TIA x4 over the last week, carotid stenosis Do you want consulting provider notified?: Yes 09/13/24 12:07 Consult Physician Routine Consulting Provider: Facundo Wong Consult Reason/Comments: Intermittent stroke symptoms Do you want consulting provider notified?: Already Contacted Primary care physician: [facility] Course: Discharge Diagnosis: Recurrent Transient episodes of cognitive and speech impairment with reports of right sided facial droop during events. Recurrent TIA's. History of recurrent recent TIAs Right-sided carotid stenosis, 50 to 69%. Patient was evaluated by surgery stating no plans for surgical intervention, per recommend outpatient follow-up and continued close monitoring. History of CVA Acute on chronic sinusitis. Patient to complete course of Augmentin 500/125 mg twice daily x 10 days CAD status post CABG x 3 Hypertensive urgency upon arrival. Improved without additional intervention, pt was allowed permissive hypertension throughout hospitalizaiton due to recurrent TIAs. Patient reports that he is on home amlodipine 5 mg twice daily in addition to metoprolol, pharmacy was unable to verify the amlodipine but patient was instructed to continue his home antihypertensive medication regimen at this time with the metoprolol 12.5 mg twice daily and amlodipine as he reports was prescribed by his PCP. 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 Continue daily medication regimen with aspirin 81 mg daily, Eliquis 5 mg twice daily, atorvastatin 40 mg nightly, and metoprolol 12.5 mg twice daily. Paroxysmal atrial fibrillation. Continue daily medication regimen with Eliquis 5 mg twice and metoprolol 12.5 mg twice daily. Hyperlipidemia Continue daily medication regimen with atorvastatin 40 mg nightly. Type II [id number] diabetes mellitus with hyperglycemia. Hemoglobin A1c resulting at 9.6%. Patient admits to poorly managed diabetes, acknowledging due to his own dietary choices over the past month. Had long discussion with patient regarding importance of optimizing blood glucose levels and pt verbalized understanding, recommend Eduardos however requires insurance authorization. Called and discussed with staff at [facility] strongly recommending insurance preauthorization to be sent for Rybelsus (or other form of semaglutide GLP-1 receptor agonist) as patient would benefit from this medication or optimizing blood glucose levels and benefit from cardiovascular/CVA risk reduction. Hospital course: Patient is a pleasant 78-year-old male with a past medical history of CAD status post CABG x 3, valvular heart disease with bioprosthetic aortic valve replacement, paroxysmal atrial fibrillation on anticoagulation with Eliquis, hypertension, hyperlipidemia, type II gtu-ajzgzbb-bhtiigjnk diabetes mellitus, recurrent TIAs and a previous CVA. He presented to the emergency department on 09/11/2024 with a chief complaint of altered mental status with reports of confusion and difficulties doing simple basic activities such as using his phone. Patient also reports experiencing some slurred speech and a severe headache. Patient reported experiencing multiple TIAs over the past week appro ximately 4 but states this one lasted longer than any of the others so he was concerned and came to the emergency department. On arrival to our facility, patient underwent evaluation in the emergency department. Vital signs upon arrival show blood pressure of 210/99, heart rate 90, respiratory rate 20, temp 97.3 F, and SpO2 of 98% on room air. Point of care glucose upon arrival 198. EKG completed showing normal sinus rhythm at 76 bpm with occasional PVCs and a right bundle branch block. Chest x-ray completed negative for acute cardiopulmonary process showing chronic interstitial prominence. CT brain negative for acute process showing small remote lacunar infarct in left basal ganglia. Labs completed and reviewed. CBC unremarkable. Coagulation profile normal findings. BMP showing sodium 134, chloride 94, BUN of 29, creatinine 1.34, and GFR of 50 with baseline creatinine around 1.4. Liver profile unremarkable. Creatinine kidneys 53. Troponin was negative at 0.012. Patient admitted under our services with consultation to neurology. CTA head was completed showing limited evaluation of the intracranial vasculature but fails to demonstrate evidence for obvious high-grade stenosis or aneurysm. Carotid Doppler showing right sided carotid stenosis of 50 to 69% at the proximal right internal carotid artery with left side less than 50% stenosis. MRI brain completed negative for evidence of recent infarct showing persistent moderate diffuse cerebral atrophy and bilateral maxillary sinus disease with acute finding suspected for right side sinusitis showing dependent fluid on right. Echocardiogram was completed showing a reduced EF of 40 to 45% with severely increased left atrial diameter and left atrial volume, mild tricuspid regurgitation, moderate pulmonic regurgitation and mildly dilated proximal ascending aorta with bioprosthetic aortic valve stable and functioning normally with acceptable gradients and no reported right to left shunting at the interatrial level. Vascular surgery was consulted secondary to right-sided carotid stenosis and recurrent TIAs. Overnight on 09/12/2024 patient again found to have slurred speech and expressive aphasia with right-sided facial droop and a code stroke was called. NIH at this time was 3. CT brain completed showing no acute intercranial abnormality revealing diffuse age-related cerebral atrophy and chronic small vessel ischemic changes. CTA head and neck again completed showing limited evaluation of the intracranial vasculature but fails to demonstrate evidence for obvious high-grade stenosis or aneurysm. Patient was again evaluated by neurology and recommended continued hospitalization for repeat MRI and EEG. Repeat MRI was completed negative for acute/subacute CVA. EEG was reported to be normal findings. Neurology clearing patient from their perspective for discharge recommending outpatient follow-up with neurologist. Had long discussion with patient regarding optimizing blood glucose levels, rec ommend Rybelsus however requires insurance authorization. Called and discussed with staff at [facility] strongly recommending insurance preauthorization to be sent for Rybelsus (or other form of semaglutide GLP-1 receptor agonist) as patient would benefit from this medication or optimizing blood glucose levels and benefit from cardiovascular/CVA risk reduction. At this time patient to continue metformin 1000 mg twice daily and started on Jardiance 10 mg daily. Patient medically optimized and to follow-up with PCP 1 to 2 days, Physical exam: Vital signs reviewed and stable. General: Nontoxic, no distress and appears stated age. Derm: Skin warm and dry, normal coloration for ethnicity. Head: Atraumatic, normocephalic and symmetric. Eyes: EOM's intact, no lid lag, and anicteric sclera Mouth: no lip lesions, mucus membranes moist Cardiovascular: regular rate and rhythm with normal S1S2, systolic murmur, positive posterior tibial pulses bilaterally, and cap refill < 2 seconds. Lungs: Respirations even, regular, and unlabored on room air. Lungs CTA bilaterally, no rhonchi, no rales, no wheezing, and no accessory muscle usage. Abdominal: soft, nontender to palpation, no guarding, no appreciable organomegaly Ext: ROM intact. No gross muscle atrophy, no edema, no contractures Neuro: Speech clear, face symmetrical and CN II-XII grossly intact with no noted focal neuro deficits Psych: Alert and oriented to person, place, time, and situation. Appropriate and pleasant affect. A total of 37 minutes of time were spent preparing this complex discharge summary. Pt was discharged on 09/16/2024 at 9:14 AM Patient was seen independently by Nurse Practitioner. This document was prepared using for; [employer] dictation software. Please allow for errors in data clerk while rare they do occur. Steven Burks NP rendered care for this patient independently, reviewed the findings and plan as documented in the note above. I did not physically speak with or examine the patient on this date. Patient Condition at Discharge: Stable Plan - Discharge Summary New Discharge Prescriptions: New Empagliflozin [Jardiance] 10 mg PO DAILY 30 Days #30 tablet Amoxic-Pot Clav 500-125 mg [Augmentin 500-125 mg] 1 each PO BID 5 Days #11 tab Continue Aspirin 81 mg PO DAILY #30 chewable Metoprolol Tartrate [Lopressor] 12.5 mg PO BID metFORMIN HCL [Glucophage] 1,000 mg PO BID Apixaban [Eliquis] 5 mg PO BID #60 tab Atorvastatin Calcium [Lipitor] 40 mg PO HS HYDROcodone/APAP 10-325MG [[place] 10-325] 1 tab PO BID PRN PRN Reason: Pain Furosemide [Lasix] 20 mg PO DAILY Discharge Medication List Aspirin 81 mg PO DAILY #30 chewable 02/06/18 [Rx] metFORMIN HCL [Glucophage] 1,000 mg PO BID 07/16/21 [History] Apixaban [Eliquis] 5 mg PO BID #60 tab 08/02/21 [Rx] Atorvastatin Calcium [Lipitor] 40 mg PO HS 01/20/22 [History] Metoprolol Tartrate [Lopressor] 12.5 mg PO BID 01/20/22 [History] Furosemide [Lasix] 20 mg PO DAILY 09/11/24 [History] HYDROcodone/APAP 10-325MG [[place] 10-325] 1 tab PO BID PRN 09/11/24 [History] Amoxic-Pot Clav 500-125 mg [Augmentin 500-125 mg] 1 each PO BID 5 Days #11 tab 09/16/24 [Rx] Empagliflozin [Jardiance] 10 mg PO DAILY 30 Days #30 tablet 09/16/24 [Rx] Follow up Appointment(s)/Referral(s): Braydon Amaya DO [STAFF PHYSICIAN] - 09/23/24 12:00 pm (Patient called TIA. On Eliquis and aspirin 81 mg. Carotid Doppler revealed moderate right ICA stenosis 50 to 69%. Please evaluate. ) Maira Tate MD [REFERRING] - 1 Week (have [facility] sent over a referral and they will set up) Orlando Parish DO [Primary Care Provider] - 1-2 days Patient Instructions/Handouts: Transient Ischemic Attack (DC) Activity/Diet/Wound Care/Special Instructions: Activity: As tolerated. Take breaks as needed. Diet: Heart healthy and carb consistent diet. Avoid salts, or foods with hidden salts such as canned or boxed foods and frozen dinners. Extra salt makes your heart work harder and traps the fluid in your body for longer. Special Instructions: Take all of your medications as directed and remember to keep all of your doctor's appointments and follow-up as needed. Thank you for allowing us to participate in your care, it was truly a pleasure having you for our patient!!! Discharge Disposition: HOME SELF-CARE
== END 2024-09-16 11:00 | disposition home or self-care (01) | DRG 69 ==
LOC: EC 12:04 → 1SOBS 14:52 → UNDOADMOB 14:52 → 1SOBS 15:53 → 3SCARD 15:53 → OBSVTOIN 16:11 → UNDOADMOB 16:11 → 3SCARD 16:11 → 1SOBS 16:11 → 3SCARD 18:30 → INTOOBSV 09-13 16:10 → OBSVTOIN 09-13 16:10 → 3SCARD 09-14 17:36 → 4SSUR 09-14 17:36 → UNDODISIN 09-16 11:00
PROVIDERS: ADMIT Student in an Organized Health Care Education/Training Program; ATTEND Student in an Organized Health Care Education/Training Program
DX: G45.9 Transient cerebral ischemic attack, unspecified (principal); I42.9 Cardiomyopathy, unspecified; I16.0 Hypertensive urgency; R47.01 Aphasia; I13.0 Hypertensive heart and chronic kidney disease with heart failure and stage 1 through stage 4 chronic kidney disease, or unspecified chronic kidney disease; I50.20 Unspecified systolic (congestive) heart failure; J01.90 Acute sinusitis, unspecified; I48.0 Paroxysmal atrial fibrillation; E11.22 Type 2 diabetes mellitus with diabetic chronic kidney disease; N18.30 Chronic kidney disease, stage 3 unspecified; I37.1 Nonrheumatic pulmonary valve insufficiency; E11.65 Type 2 diabetes mellitus with hyperglycemia; E78.5 Hyperlipidemia, unspecified; I25.10 Atherosclerotic heart disease of native coronary artery without angina pectoris; R47.81 Slurred speech; R29.810 Facial weakness; R29.703 NIHSS score 3; I49.3 Ventricular premature depolarization; I45.10 Unspecified right bundle-branch block; G44.209 Tension-type headache, unspecified, not intractable; Z95.3 Presence of xenogenic heart valve; Z86.73 Personal history of transient ischemic attack (TIA), and cerebral infarction without residual deficits; Z95.1 Presence of aortocoronary bypass graft; Z79.899 Other long term (current) drug therapy; Z79.84 Long term (current) use of oral hypoglycemic drugs; Z79.82 Long term (current) use of aspirin; Z79.01 Long term (current) use of anticoagulants; I25.2 Old myocardial infarction
CPT/HCPCS: 36415; 70450; 70496; 70498; 70551; 71046; 80053; 80061; 80306; 82550; 83036; 83735; 84443; 84484; 85025; 85027; 85610; 85730; 93005; 93306; 93880; 95816; 99285